=== PATIENT | female | born 1950 | race Caucasian/White ===

== ENCOUNTER 2016-09-24 15:58 | Inpatient (IN) | payer MEDICARE ==
[~2016-09-24] VITALS: Ht 167.6 cm; Wt 73.3 kg
[~2016-09-24 15:58] MED LIST: DEPA500T3 PO; DIVA250ER PO; FURO1TAB93 PO; GLIP5 PO; KCL20 PO; LASI20TA PO; METO25 PO; THIO PO
[2016-09-24 16:55] VITALS: BP 180/81; PULSE 110; RESP 16; TEMP 98.2; O2SAT 96
--- NOTE | 2016-09-24 17:28 | PD ---
HPI Chief Complaint: Psychiatric Symptoms Time Seen by Provider: 16:50 Travel History International Travel<30 days: No Contact w/Intl Traveler<30days: No Traveled to known affect area: No History of Present Illness HPI 66 year-old woman presents emergency department brought in by EMS. The majority of history is obtained from EMS. They stated she was at some sort of family event when she began to laugh hysterically and then stopped responding. Reported family hours on scene said she's done this multiple times in the past related to psychiatric disease. She is a history of bipolar disorder. They report that is becoming more common and problematic. She currently lives by herself, and takes care of a hearing impaired daughter reportedly. History Past Medical History Narrative Medical Bipolar disorder Menopausal: Yes : 2 Para: 2 Social History Alcohol Use: No Tobacco Use: No Allergies-Medications (Allergen,Severity, Reaction): Coded Allergies: Motrin (Verified Allergy, Severe, HIVES, 10/03/15) Penicillin (Verified Allergy, Severe, HIVES, 10/03/15) Sulfa (Verified Allergy, Severe, Hives, 10/03/15) Reported Meds & Prescriptions Reported Meds & Active Scripts Active Lasix (Furosemide) 20 Mg Tab 1 Tab PO DAILY 14 Days Thiothixene 5 Mg Cap 5 Mg PO BID 15 Days Kcl 20 Meq Tab (Potassium Chloride) 20 Meq Tabcr 20 Meq PO DAILY 15 Days Furosemide 40 Mg Tab 40 Mg PO DAILY 15 Days Depakote (Divalproex Sodium) 500 Mg Diana 500 Mg PO DAILY 15 Days Depakote ER 250 mg (Divalproex Sodium) 250 Mg Diana 750 Mg PO HS 15 Days Metoprolol Tartrate 25 mg (Metoprolol Tartrate) 25 Mg Tab 25 Mg PO Q12 Reported Glucotrol (Glipizide) 5 Mg Tab 5 Mg PO BIDAC Review of Systems Except as stated in HPI: all other systems reviewed are Neg Physical Exam Narrative GENERAL: Well-appearing 66 year-old woman, seems to be volitionally unresponsive , resists any exam. SKIN: Warm and dry. HEAD: Atraumatic. Normocephalic. EYES: Pupils equal and round. No scleral icterus. No injection or drainage. CARDIOVASCULAR: Regular rate and rhythm. No murmur appreciated. RESPIRATORY: No accessory muscle use. Clear to auscultation. Breath sounds equal bilaterally. GASTROINTESTINAL: Abdomen soft, non-tender, nondistended. Hepatic and splenic margins not palpable. MUSCULOSKELETAL: No obvious deformities. She holds both feet extended. Right foot seems to have some edema. Unclear if this is chronic or not. There is no obvious areas of tenderness. NEUROLOGICAL: Awake and alert. Will not answer any questions or follow any commands. Resists any maneuvers. Alternately walled opposition swelling arms flexed, sometimes extended, other times she'll purposefully move them and attempted to grab the examiner several times. PSYCHIATRIC: Most catatonic at times, will follow the examiner about the room with her eyes, she tried to grab me a couple times a day and exam after which her blood. Data Data Last Documented VS Vital Signs Date Time Temp Pulse Resp B/P Pulse Ox O2 Delivery O2 Flow Rate FiO2 09/24/16 16:55 98.2 110 16 180/81 96 Orders Complete Blood Count With Diff (09/24/16 17:09) Comprehensive Metabolic Panel (09/24/16 17:09) Psych Screen (09/24/16 17:09) Drug Screen, Random Urine (09/24/16 17:09) Alcohol (Ethanol) (09/24/16 17:09) Foot, Complete ([id number]) (09/24/16 ) Ankle, Complete ([id number]) (09/24/16 ) MDM Medical Decision Making Medical Screen Exam Complete: Yes Emergency Medical Condition: Yes Differential Diagnosis Catatonia, psychosis, agitation, conversion, other Narrative Course Medical decision making 66 year-old woman presents emergency Department with conversion or volitional unresponsiveness or catatonia. Appears to be psychiatric in origin. We'll check basic labs, psych eval, reassess. Oral Zamora MD Sep 24, 2016 17:28
[2016-09-24 17:57] LABS: BASOPHIL % 0.5 % (0.0-2.0); EOSINOPHIL # 0.1 TH/MM3 (0-0.4); EOSINOPHIL % 0.9 % (0.0-4.0); HEMATOCRIT 35.7 % (35.0-46.0); HEMO FLAGS DIFF FINAL; LYMPH % 18.7 % (9.0-44.0); LYMPHOCYTE # 1.1 TH/MM3 (1.0-4.8); MEAN CELL VOLUME 86.9 FL (80.0-100.0); MEAN CORPUSCULAR HEMOGLOBIN 28.3 PG (27.0-34.0); MEAN CORPUSCULAR HGB CONC 32.6 % (32.0-36.0); MONO % 10.7 % (0.0-8.0); NEUT % 69.2 % (16.0-70.0); PLATELET COUNT 156 TH/MM3 (150-450); RED BLOOD COUNT 4.11 MIL/MM3 (4.00-5.30); RED CELL DISTRIBUTION WIDTH 13.4 % (11.6-17.2); WHITE BLOOD COUNT 5.7 TH/MM3 (4.0-11.0)
[2016-09-24 18:05] LABS: AMPHETAMINE, URINE NEG (NEG); BARBITURATES, URINE NEG (NEG); COCAINE, URINE NEG (NEG)
[2016-09-24 18:10] LABS: ANION GAP 13 MEQ/L (5-15); AST (GOT) 21 U/L (15-37); BICARBONATE 21.8 MEQ/L (21.0-32.0); BLOOD UREA NITROGEN 31 MG/DL (7-18); CHLORIDE 108 MEQ/L (98-107); GLOMERULAR FILTRATION RATE 49 ML/MIN (>89); POTASSIUM 3.6 MEQ/L (3.5-5.1); SODIUM (NA) 143 MEQ/L (136-145)
[2016-09-24 18:13] LABS: ALKALINE PHOSPHATASE 68 U/L (45-117); ALT (GPT) 21 U/L (10-53); TOTAL BILIRUBIN ADULT 0.7 MG/DL (0.2-1.0)
[2016-09-24 18:57] VITALS: BP 171/78; PULSE 103; RESP 18; O2SAT 96
--- NOTE | 2016-09-24 19:02 | RADRPT ---
EXAM DATE/TIME: 09/24/2016 17:59 [facility] COMPARISON: No previous studies available for comparison. INDICATIONS : Trauma MEDICAL HISTORY : Unobtainable SURGICAL HISTORY : Unobtainable ENCOUNTER: Initial ACUITY: 1 day PAIN SCORE: Non-responsive. LOCATION: Right Foot FINDINGS: Multiple views of the right foot were obtained and demonstrate diffuse osteopenia and osteoarthritic change. There is no definite acute fracture or malalignment identified. There is chronic deformity of the mid and hindfoot with apparent tarsal fusion. Calcification is noted in the Achilles tendon. The re are degenerative changes in the subtalar joint and tibiotalar joint. CONCLUSION: 1. No acute fracture or malalignment identified. 2. Chronic deformity of the mid and hindfoot with degenerative change. 3. Diffuse osteopenia. Alexander Walter MD on September 24, 2016 at 18:59 Board Certified Radiologist. This report was verified electronically.
--- NOTE | 2016-09-24 19:17 | RADRPT ---
EXAM DATE/TIME: 09/24/2016 17:56 [facility] COMPARISON: FOOT RIGHT COMPLETE ([id number]), September 24, 2016, 17:59. INDICATIONS : Trauma MEDICAL HISTORY : Unobtainable SURGICAL HISTORY : Unobtainable ENCOUNTER: Initial ACUITY: 1 day PAIN SCORE: Non-responsive. LOCATION: Right Ankle FINDINGS: Multiple views of the right ankle were obtained and demonstrate no acute fracture or malalignment. Th ere are chronic changes involving the distal fibula with benign appearing periosteal new bone formati on. There are degenerative changes in the subtalar joint. Degenerative changes are noted in the mid a nd hindfoot with fusion. There is diffuse osteopenia and degenerative change. CONCLUSION: No acute fracture or malalignment. Chronic changes. Alexander Walter MD on September 24, 2016 at 19:15 Board Certified Radiologist. This report was verified electronically.
[2016-09-24] MEDS ORDERED: DEPA500T3 PO (21:16)
[2016-09-24] MEDS ORDERED: GLIP10TA6 PO (21:17)
[2016-09-24] MEDS ORDERED: GLIP5TAB8 PO (21:17)
[2016-09-24] MEDS ORDERED: DIPH25CA PO (21:17)
[2016-09-24 21:28] VITALS: BP 153/68; PULSE 98; RESP 16; O2SAT 96
[2016-09-24] MEDS ORDERED: MAGNESIUM HYDROXIDE SUSP 30 ML CUP PO PRN (23:15)
[2016-09-24] MEDS ORDERED: ALUMINUM/MAGNESIUM/SIMETH 30 ML CUP PO PRN (23:15)
[2016-09-24] MEDS ORDERED: ACETAMINOPHEN 325 MG TAB PO PRN (23:15)
[2016-09-25 00:44] VITALS: BP 161/91; PULSE 109; RESP 18; TEMP 98.4; O2SAT 96
[2016-09-25] MEDS: LORazepam 2 MG/ML VIAL - age > 65 yrs IM PRN (01:25)
[2016-09-25 06:00] VITALS: BP 132/82; PULSE 95; RESP 17; TEMP 98.7; O2SAT 99
[2016-09-25 07:35] LABS: AUTOMATED NEUTROPHIL # 3.4 TH/MM3 (1.8-7.7); BASOPHIL % 0.7 % (0.0-2.0); EOSINOPHIL # 0.1 TH/MM3 (0-0.4); EOSINOPHIL % 1.8 % (0.0-4.0); HEMATOCRIT 37.3 % (35.0-46.0); HEMO FLAGS DIFF FINAL; LYMPH % 22.5 % (9.0-44.0); LYMPHOCYTE # 1.2 TH/MM3 (1.0-4.8); MEAN CELL VOLUME 85.1 FL (80.0-100.0); MEAN CORPUSCULAR HEMOGLOBIN 28.3 PG (27.0-34.0); MEAN CORPUSCULAR HGB CONC 33.3 % (32.0-36.0); MONO % 10.9 % (0.0-8.0); NEUT % 64.1 % (16.0-70.0); PLATELET COUNT 182 TH/MM3 (150-450); RED BLOOD COUNT 4.39 MIL/MM3 (4.00-5.30); RED CELL DISTRIBUTION WIDTH 13.4 % (11.6-17.2); WHITE BLOOD COUNT 5.2 TH/MM3 (4.0-11.0)
[2016-09-25 08:06] LABS: ANION GAP 9 MEQ/L (5-15); AST (GOT) 19 U/L (15-37); BICARBONATE 25.6 MEQ/L (21.0-32.0); BLOOD UREA NITROGEN 24 MG/DL (7-18); CHLORIDE 111 MEQ/L (98-107); GLOMERULAR FILTRATION RATE 57 ML/MIN (>89); MAGNESIUM 2.3 MG/DL (1.5-2.5); POTASSIUM 3.9 MEQ/L (3.5-5.1); SODIUM (NA) 146 MEQ/L (136-145)
[2016-09-25] MEDS: LORazepam 0.5 MG TAB age > 65 yrs PO PRN (08:30)
[2016-09-25 08:33] LABS: ALKALINE PHOSPHATASE 67 U/L (45-117); ALT (GPT) 21 U/L (10-53); CREATINE KINASE 286 U/L (26-192); FREE T4 1.33 NG/DL (0.76-1.46); HDL CHOLESTEROL 53.9 MG/DL (40.0-60.0); LDL CHOLESTEROL 117 MG/DL (0-99); TOTAL BILIRUBIN ADULT 0.9 MG/DL (0.2-1.0)
[2016-09-25 08:46] LABS: CKMB 2.9 NG/ML (0.5-3.6)
--- NOTE | 2016-09-25 08:48 | PD.CONS ---
HPI Service [facility] Hospitalists Consult Requested By Dr. Poe Reason for Consult Medical management Primary Care Physician Abdoulaye Barclay, Diagnoses: History of Present Illness This is a 66-year-old woman with significant past medical history of type 2 diabetes, bipolar disorder, hypertension, CVA, previous admissions to psychiatric unit under [facility]. Patient presented to the emergency room via EMS after family reported the patient had been laughing hysterically and then had stopped responding. Patient was brought to the emergency room to be evaluated, laboratory workup was essentially unremarkable. She was admitted to inpatient psychiatric. Hospitalist service requested for medical management. Patient has history of diabetes and hypertension. Blood pressure was initially elevated in the emergency room which has now stabilized. Patient is ambulating in psychiatric unit, she is cooperative, mood is elevated. She is answering questions but is difficult to focus her on conversation. She has no other complaints other than asking which psychiatrist has been assigned to her. ( [place] [place]) Review of Systems ROS Limitations: Clinical Condition (Emerald [place]) Past Family Social History Past Medical History Bipolar disease, hypertension, diabetes mellitus, noncompliance with medications , anxiety, history of CVA and prior admissions for [facility] inpatient psychiatric unit, LLE DVT Past Surgical History Exploratory laparotomy and surgery to the right foot is child Reported Medications Reported Meds & Active Scripts Active Reported Glipizide 10 Mg Tab 10 Mg PO DAILY Take 30 minutes before a meal Glipizide 5 Mg Tab 5 Mg PO HS Take 30 minutes before a meal Diphenhydramine (Diphenhydramine HCl) 25 Mg Cap 50 Mg PO HS PRN Depakote ER (Divalproex Sodium) 500 Mg Diana 500 Mg PO BID (Emerald [place] ) Allergies: Coded Allergies: Motrin (Verified Allergy, Severe, HIVES, 10/03/15) Penicillin (Verified Allergy, Severe, HIVES, 10/03/15) Sulfa (Verified Allergy, Severe, Hives, 10/03/15) Active Ordered Medications Inpatient Medications Acetaminophen (Tylenol) 650 mg Q4H PRN PO Pain 1-5 or Temp >101F; Start at 23:15 Al Hydrox/Mg Hydrox/Simethicone (Mag-Al Plus Susp Liq) 30 ml Q6H PRN PO DYSPEPSIA; Start 09/24/16 at 23:15 Dextrose (D50w (Vial) Inj) 25 ml UNSCH PRN IV PUSH HYPOGLYCEMIA-SEE COMMENTS; Start 09/25/16 at 09:00 Diphenhydramine HCl (Benadryl) 50 mg HS PRN PO INSOMNIA; Start 09/24/16 at 23: 30 Divalproex Sodium (Depakote Er) 500 mg BID PO ; Start 09/25/16 at 09:00 Glipizide (Glucotrol) 10 mg DAILY PO ; Start 09/25/16 at 09:00 Glucagon (Glucagon Inj) 1 mg UNSCH PRN OTHER HYPOGLYCEMIA-SEE COMMENTS; Start 09/25/16 at 09:00 Insulin Aspart (NovoLOG SUPPLEMENTAL SCALE) 1 ACHS SLIDING SCALE SQ ; Start at 11:00 Lorazepam (Ativan Inj) 0.5 mg Q12H PRN IM MODERATE TO SEVERE ANXIETY Last administered on 09/25/16t 01:25; Start 09/24/16 at 23:15 Lorazepam (Ativan) 0.5 mg Q12H PRN PO MODERATE TO SEVERE ANXIETY; Start at 23:15 Magnesium Hydroxide (Milk Of Vianca Liq) 30 ml DAILY PRN PO CONSTIPATION; Start 09/24/16 at 23:15 Pneumococcal Polyvalent Vaccine (Pneumovax-23 Inj) 25 mcg ONCE ONCE IM ; Start 09/26/16 at 10:00; Stop 09/26/16 at 10:01 Family History Unable to obtain at this time Social History Patient denies tobacco use EtOH use or illicit drug use.Lives with daughter who is [place] and has special needs. Has a son who lives out of state. Uses walker for ambulation ([facility] [place]) Physical Exam Vital Signs Vital Signs Date Time Temp Pulse Resp B/P Pulse Ox O2 Delivery O2 Flow Rate FiO2 09/25/16 06:00 98.7 95 17 132/82 99 09/25/16 00:44 98.4 109 18 161/91 96 09/24/16 21:28 98 16 153/68 96 Room Air 09/24/16 18:57 103 18 171/78 96 Room Air 09/24/16 16:55 98.2 110 16 180/81 96 Physical Exam GENERAL: This is a well-nourished, well-developed patient, in no apparent distress. SKIN: No rashes, ecchymoses or lesions. Cool and dry. HEAD: Atraumatic. Normocephalic. No temporal or scalp tenderness. EYES: Pupils equal round and reactive. Extraocular motions intact. No scleral icterus. No injection or drainage. ENT: Nose without bleeding, purulent drainage or septal hematoma. Throat without erythema, tonsillar hypertrophy or exudate. Uvula midline. Airway patent. NECK: Trachea midline. No JVD or lymphadenopathy. Supple, nontender, no meningeal signs. CARDIOVASCULAR: Regular rate and rhythm without murmurs, gallops, or rubs. RESPIRATORY: Clear to auscultation. Breath sounds equal bilaterally. No wheezes , rales, or rhonchi. GASTROINTESTINAL: Abdomen soft, non-tender, nondistended. No hepato-splenomegaly , or palpable masses. No guarding. MUSCULOSKELETAL: Right ankle deformity, chronic, no other joint deformity. Trace pretibial edema. Pedal pulses 2+ NEUROLOGICAL: Awake, oriented x 3. Mood elevated. No focal deficits. Laboratory Laboratory Tests Test 09/24/16 09/25/16 17:30 07:10 White Blood Count 5.7 5.2 Red Blood Count 4.11 4.39 Hemoglobin 11.6 12.4 Hematocrit 35.7 37.3 Mean Corpuscular Volume 86.9 85.1 Mean Corpuscular Hemoglobin 28.3 28.3 Mean Corpuscular Hemoglobin 32.6 33.3 Concent Red Cell Distribution Width 13.4 13.4 Platelet Count 156 182 Mean Platelet Volume 10.7 9.9 Neutrophils (%) (Auto) 69.2 64.1 Lymphocytes (%) (Auto) 18.7 22.5 Monocytes (%) (Auto) 10.7 10.9 Eosinophils (%) (Auto) 0.9 1.8 Basophils (%) (Auto) 0.5 0.7 Neutrophils # (Auto) 4.0 3.4 Lymphocytes # (Auto) 1.1 1.2 Monocytes # (Auto) 0.6 0.6 Eosinophils # (Auto) 0.1 0.1 Basophils # (Auto) 0.0 0.0 CBC Comment DIFF FINAL DIFF FINAL Differential Comment Sodium Level 143 146 Potassium Level 3.6 3.9 Chloride Level 108 111 Carbon Dioxide Level 21.8 25.6 Anion Gap 13 9 Blood Urea Nitrogen 31 24 Creatinine 1.11 0.97 Estimat Glomerular Filtration 49 57 Rate Random Glucose 121 128 Calcium Level 9.2 9.2 Total Bilirubin 0.7 0.9 Aspartate Amino Transf 21 19 (AST/SGOT) Alanine Aminotransferase 21 21 (ALT/SGPT) Alkaline Phosphatase 68 67 Total Protein 8.4 8.5 Albumin 3.8 3.5 Urine Opiates Screen NEG Urine Barbiturates Screen NEG Urine Amphetamines Screen NEG Urine Benzodiazepines Screen NEG Urine Cocaine Screen NEG Urine Cannabinoids Screen NEG Ethyl Alcohol Level LESS THAN 3 Uric Acid 6.0 Phosphorus Level 2.5 Magnesium Level 2.3 Total Creatine Kinase 286 Creatine Kinase MB 2.9 Creatine Kinase MB % 1.0 Triglycerides Level 84 Cholesterol Level 188 LDL Cholesterol 117 HDL Cholesterol 53.9 Cholesterol/HDL Ratio 3.48 Vitamin B12 Level 695 25-Hydroxy Vitamin D Total 12.6 Free Thyroxine 1.33 Thyroid Stimulating Hormone 0.742 3rd Gen Valproic Acid (Depakene) Level 65 (Emerald [place]) Result Diagram: 09/25/16 0710 09/25/16 0710 Imaging Last Impressions Foot X-Ray 09/24/16 0000 Signed Impressions: Service Date/Time: Saturday, September 24, 2016 17:59 - CONCLUSION: 1. No acute fracture or malalignment identified. 2. Chronic deformity of the mid and hindfoot with degenerative change. 3. Diffuse osteopenia. Alexander Watler MD Ankle X-Ray 09/24/16 0000 Signed Impressions: Service Date/Time: Saturday, September 24, 2016 17:56 - CONCLUSION: No acute fracture or malalignment. Chronic changes. Alexander Walter MD ([facility] [place]) A/P Diagnosis: (1) Bipolar affective disorder, current episode manic with psychotic symptoms (2) Non-insulin dependent type 2 diabetes mellitus (3) HX LEFT LEG DVT (4) Anxiety (5) Hypertension Assessment and Plan Thank you for this consultation. We will assist with medical management. 66-year-old female with history of type 2 diabetes, left leg DVT, anxiety, hypertension, CVA. History of bipolar disorder, admitted with recurrent manic episode. -Continue with psychiatric care -Continue with present medication treatment Type 2 diabetes -1800 ADA diet Continue with oral hypoglycemic Accu-Chek before meals and at bedtime with insulin therapy Hypertension, initially elevated no stable Continue with home medication Clonidine when necessary as needed for systolic rhythm 160 and diastolic rhythm 90 Plan of care has been discussed with the patient, attending and registered nurse. Further management of the patient will be dependent on the hospital course We will sign off for now, please call if needed. This patient was seen by myself and Dr. Purcell, this consultation is written on his behalf. (Emerald [place]) Assessment and Plan pt is seen & examined d/w PT d/w Emer[facility] agree w above (Elicia Purcell MD) Problem Qualifiers (1) Hypertension: Qualified Code: I10 - Essential hypertension Emerald [place] Sep 25, 2016 08:48 Elicia Purcell MD Sep 25, 2016 17:52
[2016-09-25] MEDS: DIVALPROEX SODIUM E.R. 500 MG TAB PO SCH ×3 (09:00→21:00)
[2016-09-25] MEDS ORDERED: GLUCAGON 1 MG/ML VIAL OTHER PRN (09:00)
[2016-09-25] MEDS: glipiZIDE 10 MG TAB PO SCH (09:00)
[2016-09-25] MEDS ORDERED: DEXTROSE 50% IN WATER 50 ML VIAL(D50) IV PUSH PRN (09:00)
[2016-09-25] MEDS ORDERED: cloNIDine HCL 0.1 MG TAB PO PRN (09:15)
[2016-09-25 09:37] LABS: HEMOGLOBIN A1b 1.9 %; HEMOGLOBIN Ao 84.4 %; HEMOGLOBIN LA1C 2.1 %; HEMOGLOBIN P3 3.9 %
[2016-09-25] MEDS: INSULIN ASPART SUPPLEMENTAL SCALE SQ SCH ×3 (11:00→21:00)
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
[2016-09-25 18:15] VITALS: BP 120/82; PULSE 94; RESP 18; TEMP 96.7; O2SAT 99
[2016-09-25] MEDS: glipiZIDE 5 MG TAB PO SCH ×2 (20:33→21:00)
[2016-09-26 05:44] VITALS: BP 146/84; PULSE 95; RESP 16; TEMP 97.1; O2SAT 98
[2016-09-26] MEDS: INSULIN ASPART SUPPLEMENTAL SCALE SQ SCH ×4 (07:00→20:46)
[2016-09-26] MEDS: DIVALPROEX SODIUM E.R. 500 MG TAB PO SCH ×2 (09:00→20:49)
[2016-09-26] MEDS: glipiZIDE 10 MG TAB PO SCH (09:00)
[2016-09-26] MEDS ORDERED: PNEUMOCOCCAL POLYVALENT INJ 25 MCG/0.5 ML SYR IM ONE (10:00)
--- NOTE | 2016-09-26 15:18 | HHI.PYPN ---
Subjective Remarks Patient discussed with treatment team, chart review, patient seen on unit. Patient walking with walker, continues loud intrusive somewhat slurred but rapid pressured speech she is somewhat paranoid and grandiose and labile she appears to be responding to internal stimuli as if her hearing voices in her head. It appears she was on Depakote in the community. Though she is refuse to sign consent for it at this time Depakote level drawn on 09/25 was 65. Will attempt have patient sign for medications continue the Depakote Review of Systems ROS Limitations: Clinical Condition, Altered Mental Status Objective Alert: Yes [place]: Person, Place, Situation Mood: Anxious, Calm Affect: Labile, Manic Memory Intact: Comment (poor) Hallucinations: Auditory (appears to be responding to internal stimuli) Delusions: Yes Delusion Type: Paranoid Suicidal: Ideation (denies) Homicidal: Ideation (denies) Insight/Judgement Poor Vitals/IOs Vital Signs Date Time Temp Pulse Resp B/P Pulse Ox O2 Delivery O2 Flow Rate FiO2 09/26/16 05:44 97.1 95 16 146/84 98 09/24/16 21:28 Room Air Intake and Output 09/25/16 09/25/16 09/26/16 08:00 16:00 00:00 Intake Total 240 ml 75 ml 360 ml Balance 240 ml 75 ml 360 ml Assessment & Plan Problem List: (1) Bipolar affective disorder, current episode manic with psychotic symptoms ICD Code: F31.2 Assessment & Plan Estimated LOS: days patient remains quite manic intense and paranoid. Trying some mixed compliance with her Depakote at this time Justification for Cont. Inpt. At this time patient will decompensate if placed in a lower level of care Discharge Planning To be determined Tim Ca MD Sep 26, 2016 15:18
[2016-09-26 18:46] VITALS: BP 131/70; PULSE 99; RESP 16; TEMP 96.9; O2SAT 94
[2016-09-26] MEDS: LORazepam 0.5 MG TAB age > 65 yrs PO PRN (20:49)
[2016-09-26] MEDS: glipiZIDE 5 MG TAB PO SCH (20:49)
[2016-09-27 06:06] VITALS: BP 137/88; PULSE 100; RESP 18; TEMP 98.1; O2SAT 96
[2016-09-27] MEDS: INSULIN ASPART SUPPLEMENTAL SCALE SQ SCH ×4 (06:22→20:54)
[2016-09-27] MEDS: LORazepam 2 MG/ML VIAL - age > 65 yrs IM PRN (07:38)
[2016-09-27] MEDS: glipiZIDE 10 MG TAB PO SCH (09:00)
[2016-09-27] MEDS: DIVALPROEX SODIUM E.R. 500 MG TAB PO SCH ×2 (09:00→20:53)
--- NOTE | 2016-09-27 09:59 | HHI.PYPN ---
Subjective Remarks Patient seen in day room with nurse Santiago, patient sitting in Marizol chair, patient loud confusing quite manicky initially showing some reluctance to be compliant with medication. Behavior was such that she needed a when necessary of Ativan this morning. Patient also up all last night yelling and screaming at times. We'll add Zyprexa 10 mg at at bedtime. There is also some confusion about [place] act status. At this time I feel patient does meet criteria for involuntary hospitalization under the [place] act, I did not feel she has capacity to be admitted as a voluntary patient thus I'll do first opinion petition supporting [place] act request a second opinion. However I do feel she does have capacity to assistance with her medication management. She has been compliant with medication so far Review of Systems Except as stated in HPI: all other systems reviewed are Neg Objective Alert: Yes [place]: Person, Place, Situation Mood: Agitated, Anxious, Calm Affect: Labile, Manic Memory Intact: Comment (poor) Hallucinations: Auditory (appears to be responding to internal stimuli) Delusions: Yes Delusion Type: Paranoid Suicidal: Ideation (denies) Homicidal: Ideation (denies) Insight/Judgement Very poor Vitals/IOs Vital Signs Date Time Temp Pulse Resp B/P Pulse Ox O2 Delivery O2 Flow Rate FiO2 09/27/16 06:06 98.1 100 18 137/88 96 09/24/16 21:28 Room Air Intake and Output 09/26/16 09/26/16 09/27/16 08:00 16:00 00:00 Intake Total 120 ml Balance 120 ml Assessment & Plan Problem List: (1) Bipolar affective disorder, current episode manic with psychotic symptoms ICD Code: F31.2 Assessment & Plan Estimated LOS: days patient continues loud manic intrusive somewhat grandiose and paranoid. Medication adjustments above. Justification for Cont. Inpt. At this time patient would significantly decompensate if placed in the lower level of care Discharge Planning To be determined Request HC Surrog/Guard Advoc?: No Tim Ca MD Sep 27, 2016 09:59
--- NOTE | 2016-09-27 10:18 | PD.CONS ---
Provisional Diagnosis Admission Date Sep 24, 2016 at 21:30 Corinne I. 1. Bipolar disorder, currently manic severe with psychotic symptoms Corinne II. Deferred Corinne V. GAF is 30 presently History of Present Illness Service Psychiatry Consult Requested By Dr. Ca Reason for Consult Second opinion Primary Care Physician Abdoulaye Barclay, DO HPI From Dr. Ca's H&P: This is a 66-year-old female who has been treated here as an inpatient at [facility] on multiple occasions. She is well known to this physician as well as the staff at [facility] for her bipolar disorder with accompanying mena at this point. Apparently she was at a family function yesterday and was laughing and acting hysterically. She could not be understood by family members and she was not cooperative or able to make logical sense. Law enforcement was called and apparently felt she was unable to care for herself and her hearing-impaired daughter, who lives with her. At this time, the patient is obviously elevated and expansive in her mood yet she is demanding that Dr. Costa Colón performed electroconvulsive therapy on her. She is aware of the machine is not working and that Dr. Colón is not working here yet she demands these things in an unreasonable and irritable fashion. There is some question as to whether Ms. Hurley has been compliant with her medications or not. This physician feels she needs to be placed back on her Depakote and not vein and observed and evaluated for appropriate response. She has no history of alcohol abuse or drug abuse. She remains grandiose in her expectations of treatment. As she cannot produce or discuss a coordinated plan to care for herself, this physician feels that her bipolar mena is of sufficient severity to warn inpatient hospitalization. On my examination today: Patient seen and examined. Chart reviewed. Case discussed with nursing staff as well as with Dr. Ca. On my examination today, the patient presents as fairly disorganized. Her speech is rambling and somewhat garbled and mostly word salad. Affect is fairly dysphoric. She is noncommittal when I ask about SI, HI or AVH. Patient does appear to be responding to internal stimuli. Psychiatric interview is limited because of degree of thought disorganization. I am unable to obtain any past psychiatric, family, chemical dependency or social history from this patient given her current degree of thought disorganization. I did obtain these data when I evaluated her approximately one year ago when she was hospitalized on the inpatient psychiatric unit under my care. Review of Systems ROS Limitations: Psychotic, Poor Historian Other No reported physical complaints at this time Past Family Social History Coded Allergies: Motrin (Verified Allergy, Severe, HIVES, 10/03/15) Penicillin (Verified Allergy, Severe, HIVES, 10/03/15) Sulfa (Verified Allergy, Severe, Hives, 10/03/15) Past Medical History See electronic medical record Reported Medications Glipizide 10 Mg Tab10 Mg PO DAILY #30 TAB Ref 0 Take 30 minutes before a meal 09/24/16 Glipizide 5 Mg Tab5 Mg PO HS #30 TAB Ref 0 Take 30 minutes before a meal 09/24/16 Diphenhydramine 25 Mg Cap50 Mg PO HS PRN (INSOMNIA) Ref 0 09/24/16 Divalproex ER (Depakote ER)500 Mg [id number] Mg PO BID #30 TAB Ref 0 09/24/16 Discontinued Reported Medications Glipizide (Glucotrol)5 Mg Tab5 Mg PO BIDAC 10/30/15 Discontinued Scripts Furosemide (Lasix)20 Mg Tab1 Tab PO DAILY 14 Days Prov:Camille Pereira MD 10/30/15 Thiothixene 5 Mg Cap5 Mg PO BID 15 Days Ref 1 Prov:Osiel Davis MD 10/22/15 Potassium Chloride (Kcl 20 Meq Tab)20 Meq Tabcr20 Meq PO DAILY 15 Days Ref 1 Prov:Osiel Davis MD 10/22/15 Furosemide 40 Mg Tab40 Mg PO DAILY 15 Days Ref 1 Prov:Osiel Davis MD 10/22/15 Divalproex ER 500 mg (Depakote ER 500 mg)500 Mg [id number] Mg PO DAILY 15 Days Ref 1 Prov:Osiel Davis MD 10/22/15 Divalproex ER 250 mg (Depakote ER 250 mg)250 Mg [id number] Mg PO HS 15 Days Ref 1 Prov:Osiel Davis MD 10/22/15 Metoprolol Tartrate 25 mg 25 Mg Tab25 Mg PO Q12 #60 TAB Ref 0 Prov:Tim Ca MD 07/29/14 Current Medications Medications (Trade) Dose Ordered Sig/[place]ent[place] Route Start Time Stop Time Status Last Admin (Ativan) 0.5 mg Q12H PRN PO 09/24/16 23:15 09/25/16 08:30 (Ativan Inj) 0.5 mg Q12H PRN IM 09/24/16 23:15 09/27/16 07:38 (Tylenol) 650 mg Q4H PRN PO 09/24/16 23:15 (Milk Of Magnesia Liq) 30 ml DAILY PRN PO 09/24/16 23:15 (Mag-Al Plus Susp Liq) 30 ml Q6H PRN PO 09/24/16 23:15 (Benadryl) 50 mg HS PRN PO 09/24/16 23:30 (Glucotrol) 5 mg HS PO 09/25/16 21:00 09/26/16 20:49 (Glucotrol) 10 mg DAILY PO 09/25/16 09:00 09/27/16 09:00 (D50w (Vial) Inj) 25 ml UNSCH PRN IV PUSH 09/25/16 09:00 (Glucagon Inj) 1 mg UNSCH PRN OTHER 09/25/16 09:00 (Catapres) 0.1 mg Q6H PRN PO 09/25/16 09:15 (Depakote Er) 500 mg BID PO 09/26/16 21:00 09/27/16 09:00 (ZyPREXA ZYDIS ODT) 10 mg HS PO 09/27/16 21:00 UNV Family History Unable to obtain Social History Unable to obtain Patient's Strengths (min. 2) In a monitored setting. History of response to medications. Physical Exam Physical examination completed by hospitalist road consultant. On my examination today, patient appears to be in no acute physical distress. No abnormal motor movements noted. Labs and vital signs reviewed: Vital Signs Vital Signs Date Time Temp Pulse Resp B/P Pulse Ox O2 Delivery O2 Flow Rate FiO2 09/27/16 06:06 98.1 100 18 137/88 96 09/24/16 21:28 Room Air I/O 09/26/16 09/26/16 09/27/16 08:00 16:00 00:00 Intake Total 120 ml Balance 120 ml Lab Results Item Value Date Time White Blood Count 5.2 TH/MM3 09/25/16 0710 Hemoglobin 12.4 GM/DL 09/25/16 0710 Platelet Count 182 TH/MM3 09/25/16 0710 Sodium Level 146 MEQ/L H 09/25/16 0710 Potassium Level 3.9 MEQ/L 09/25/16 0710 Chloride Level 111 MEQ/L H 09/25/16 0710 Carbon Dioxide Level 25.6 MEQ/L 09/25/16 0710 Blood Urea Nitrogen 24 MG/DL H 09/25/16 0710 Creatinine 0.97 MG/DL 09/25/16 0710 Random Glucose 128 MG/DL H 09/25/16 0710 Estimat Glomerular Filtration Rate 57 ML/MIN L 09/25/16 0710 Aspartate Amino Transf (AST/SGOT) 19 U/L 09/25/16 0710 Alanine Aminotransferase (ALT/SGPT) 21 U/L 09/25/16 0710 Alkaline Phosphatase 67 U/L 09/25/16 0710 Valproic Acid (Depakene) Level 65 MCG/ML 09/25/16 07 Mental Status Examination Patient is in hospital gown. She appears to be fairly well groomed. She is oriented to person and place at least. No abnormal motor movements noted. Speech is rambling and bordering on Word salad much of the time. Affect is presently dysphoric. Thought process disorganized. Associations loose. Possibly some underlying paranoia, unclear given thought disorganization. Patient appears internally stimulated. Does not verbalize any SI or HI but is unreliable to contract for safety at present. Insight and judgment are poor. Assessment & Plan Problem List: (1) Bipolar affective disorder, current episode manic with psychotic symptoms ICD Code: F31.2 Assessment & Plan Given the circumstances of her presentation here in her presentation on my examination today, I concur with Dr. Ca that the patient meets criteria for involuntary psychiatric hospitalization under the [place] act. I have completed the second opinion paperwork. Further care as per Dr. Ca. Signing off. Osiel Davis MD Sep 27, 2016 10:18
--- NOTE | 2016-09-27 17:59 | HHI.PR ---
Subjective Remarks sitting in day room calm has no complaints asking for a "makeover" no pain blood sugars stable BP okay no fever reported Objective Objective Results - Vital Signs Date Time Temp Pulse Resp B/P Pulse Ox O2 Delivery O2 Flow Rate FiO2 09/27/16 06:06 98.1 100 18 137/88 96 09/26/16 18:46 96.9 99 16 131/70 94 I/O 09/26/16 09/26/16 09/26/16 09/27/16 09/27/16 09/27/16 07:00 15:00 23:00 07:00 15:00 23:00 Intake Total 360 ml 120 ml Balance 360 ml 120 ml Intake Oral 360 ml 120 ml # Voids 3 2 2 Result Diagram: 09/25/16 0710 09/25/16 0710 Imaging Last Impressions Foot X-Ray 09/24/16 0000 Signed Impressions: Service Date/Time: Saturday, September 24, 2016 17:59 - CONCLUSION: 1. No acute fracture or malalignment identified. 2. Chronic deformity of the mid and hindfoot with degenerative change. 3. Diffuse osteopenia. Alexander Walter MD Ankle X-Ray 09/24/16 0000 Signed Impressions: Service Date/Time: Saturday, September 24, 2016 17:56 - CONCLUSION: No acute fracture or malalignment. Chronic changes. Alexander Walter MD ROS General: Other (12 point ROS completed, unreliable.) Physical Exam Physical Exam GENERAL: This is a well-nourished, well-developed patient, in no apparent distress. SKIN: No rashes, ecchymoses or lesions. Cool and dry. HEAD: Atraumatic. Normocephalic. No temporal or scalp tenderness. EYES: Pupils equal round and reactive. Extraocular motions intact. No scleral icterus. No injection or drainage. ENT: Nose without bleeding, purulent drainage or septal hematoma. Throat without erythema, tonsillar hypertrophy or exudate. Uvula midline. Airway patent. NECK: Trachea midline. No JVD or lymphadenopathy. Supple, nontender, no meningeal signs. CARDIOVASCULAR: Regular rate and rhythm without murmurs, gallops, or rubs. RESPIRATORY: Clear to auscultation. Breath sounds equal bilaterally. No wheezes , rales, or rhonchi. GASTROINTESTINAL: Abdomen soft, non-tender, nondistended. No hepato-splenomegaly , or palpable masses. No guarding. MUSCULOSKELETAL: Right ankle deformity, chronic, no other joint deformity. Trace pretibial edema. Pedal pulses 2+ NEUROLOGICAL: Awake, oriented x 3. Mood elevated. No focal deficits. Urinary Catheter: No Vascular Central Line Catheter: No A/P Diagnosis: (1) Bipolar affective disorder, current episode manic with psychotic symptoms (2) Non-insulin dependent type 2 diabetes mellitus (3) HX LEFT LEG DVT (4) Anxiety (5) Hypertension Assessment and Plan 66-year-old female with history of type 2 diabetes, left leg DVT, anxiety, hypertension, CVA. History of bipolar disorder, admitted with recurrent manic episode. -Continue with psychiatric care -Continue with present medication treatment Type 2 diabetes-BGM stable -1800 ADA diet Continue with oral hypoglycemic Accu-Chek before meals and at bedtime with insulin therapy -HgbA1c 6.1 Hypertension, initially elevated now stable Continue with home medication Clonidine when necessary as needed for systolic rhythm 160 and diastolic rhythm 90 doing fairly well, no issues with blood glucose, BP stable We will sign off for now, please call if needed. D/W RN D/W Dr. Purcell D/W pt. This patient was seen by myself and Dr. Purcell, this note is written on his behalf. Problem Qualifiers (1) Hypertension: Qualified Code: I10 - Essential hypertension Emerald [place] Sep 27, 2016 17:59
[2016-09-27 20:17] VITALS: BP 137/88; PULSE 100; RESP 18; TEMP 98.1; O2SAT 96
[2016-09-27] MEDS: glipiZIDE 5 MG TAB PO SCH (20:53)
[2016-09-27] MEDS: OLANZapine ODT 10 MG TAB PO SCH (20:53)
[2016-09-27] MEDS: LORazepam 0.5 MG TAB age > 65 yrs PO PRN (20:54)
[2016-09-27] MEDS: diphenhydrAMINE HCL 25 MG CAP PO PRN (20:54)
[2016-09-28 05:52] VITALS: BP 119/69; PULSE 90; RESP 15; TEMP 98.4; O2SAT 98
[2016-09-28] MEDS: INSULIN ASPART SUPPLEMENTAL SCALE SQ SCH ×4 (06:03→21:00)
[2016-09-28] MEDS: DIVALPROEX SODIUM E.R. 500 MG TAB PO SCH ×2 (08:57→21:30)
[2016-09-28] MEDS: glipiZIDE 10 MG TAB PO SCH (08:57)
--- NOTE | 2016-09-28 12:04 | HHI.PYPN ---
Subjective Remarks Patient discussed with treatment team including medications diagnosis placement recommendations and discharge planning, chart reviewed, patient seen on unit. Patient not quite as loud as yesterday though continues markedly demanding especially when speaking with nursing doing medication distribution. Still quite grandiose labile and intrusive, compliant medications. We will check Depakote level over tomorrow Review of Systems Except as stated in HPI: all other systems reviewed are Neg Objective Alert: Yes [place]: Person, Place, Situation Mood: Agitated, Anxious, Calm Affect: Labile, Manic Memory Intact: Comment (poor) Hallucinations: Auditory (appears to be responding to internal stimuli) Delusions: Yes Delusion Type: Paranoid Suicidal: Ideation (denies) Homicidal: Ideation (denies) Insight/Judgement Very poor Vitals/IOs Vital Signs Date Time Temp Pulse Resp B/P Pulse Ox O2 Delivery O2 Flow Rate FiO2 09/28/16 05:52 98.4 90 15 119/69 98 09/24/16 21:28 Room Air Intake and Output 09/27/16 09/27/16 09/28/16 08:00 16:00 00:00 Intake Total 120 ml 270 ml Balance 120 ml 270 ml Assessment & Plan Problem List: (1) Bipolar affective disorder, current episode manic with psychotic symptoms ICD Code: F31.2 Assessment & Plan Estimated LOS: days patient continues manic grandiose psychotic flavor, compliant medications. For now continue medications no change check Depakote level over in a.m. Justification for Cont. Inpt. At this time patient will decompensate if placed in a lower level of care Discharge Planning To be determined Tim Ca MD Sep 28, 2016 12:04
[2016-09-28 19:48] VITALS: BP_SYST 124; BP_SYST 137; BP_DIAS 65; BP_DIAS 79; PULSE 95; PULSE 98; RESP 16; RESP 18; TEMP 98.1; TEMP 99.4; O2SAT 100; O2SAT 98
[2016-09-28] MEDS: OLANZapine ODT 10 MG TAB PO SCH (21:00)
[2016-09-28] MEDS: glipiZIDE 5 MG TAB PO SCH (21:30)
[2016-09-29 05:22] VITALS: BP 133/76; PULSE 118; RESP 18; TEMP 97.4; O2SAT 100
[2016-09-29] MEDS: INSULIN ASPART SUPPLEMENTAL SCALE SQ SCH (06:11)
[2016-09-29] MEDS: glipiZIDE 10 MG TAB PO SCH (08:34)
[2016-09-29] MEDS: DIVALPROEX SODIUM E.R. 500 MG TAB PO SCH ×2 (08:34→21:23)
--- NOTE | 2016-09-29 10:05 | HHI.PYPN ---
Subjective Remarks Patient seen [place], retained by Katerin Dubose to be guardian advocate. Patient was loud disorganized confused with the hand stitcher. Patient continues mixed compliance with medication especially related to the Zyprexa. Upon review of prior hospitalizations patient had been on Ativan 5 mg twice a day. Depakote level 91 this a.m. will add never been 5 mg at 8 AM and 4 PM to regimen. Continue other medications. Review of Systems Except as stated in HPI: all other systems reviewed are Neg Objective Alert: Yes [place]: Person, Place, Situation Mood: Agitated, Anxious, Calm Affect: Labile, Manic Memory Intact: Comment (poor) Hallucinations: Auditory (appears to be responding to internal stimuli) Delusions: Yes Delusion Type: Paranoid Suicidal: Ideation (denies) Homicidal: Ideation (denies) Insight/Judgement Poor Labs Test 09/29/16 07:00 Valproic Acid (Depakene) Level 91 MCG/ML Vitals/IOs Vital Signs Date Time Temp Pulse Resp B/P Pulse Ox O2 Delivery O2 Flow Rate FiO2 09/29/16 05:22 97.4 118 18 133/76 100 Intake and Output 09/28/16 09/28/16 09/29/16 08:00 16:00 00:00 Intake Total 360 ml Balance 360 ml Assessment & Plan Problem List: (1) Bipolar affective disorder, current episode manic with psychotic symptoms ICD Code: F31.2 Assessment & Plan Estimated LOS: days patient remains quite manic and psychotic, grandiose. Showing mixed compliance with medication at this time. We'll add neb and 5 mg twice a day to regimen. Depakote level came back at 91 Justification for Cont. Inpt. At this time patient will decompensate placed in the lower level of care Discharge Planning To be determined Tim Ca MD Sep 29, 2016 10:05
[2016-09-29] MEDS: LORazepam 0.5 MG TAB age > 65 yrs PO PRN (10:57)
--- NOTE | 2016-09-29 16:14 | HHI.PR ---
Subjective Remarks pt is feeling ok offering no complaint sitting in day room calm no pain blood sugars stable BP okay no fever reported Review of systems a 10 point system otherwise unremarkable Objective Objective Results - Vital Signs Date Time Temp Pulse Resp B/P Pulse Ox O2 Delivery O2 Flow Rate FiO2 09/29/16 05:22 97.4 118 18 133/76 100 09/28/16 19:48 99.4 98 16 137/79 100 I/O 09/28/16 09/28/16 09/28/16 09/29/16 09/29/16 09/29/16 07:00 15:00 23:00 07:00 15:00 23:00 Intake Total 360 ml 1440 ml Balance 360 ml 1440 ml Intake Oral 360 ml 1440 ml # Voids 2 2 1 1 Result Diagram: 09/25/16 0710 09/25/16 0710 Imaging Last Impressions Foot X-Ray 09/24/16 0000 Signed Impressions: Service Date/Time: Saturday, September 24, 2016 17:59 - CONCLUSION: 1. No acute fracture or malalignment identified. 2. Chronic deformity of the mid and hindfoot with degenerative change. 3. Diffuse osteopenia. Alexander Walter MD Ankle X-Ray 09/24/16 0000 Signed Impressions: Service Date/Time: Saturday, September 24, 2016 17:56 - CONCLUSION: No acute fracture or malalignment. Chronic changes. Alexander Walter MD Other Results Laboratory Tests Test 09/29/16 07:00 Valproic Acid (Depakene) Level 91 Physical Exam Physical Exam GENERAL: This is a well-nourished, well-developed patient, in no apparent distress. SKIN: No rashes, ecchymoses or lesions. Cool and dry. HEAD: Atraumatic. Normocephalic. No temporal or scalp tenderness. EYES: Pupils equal round and reactive. Extraocular motions intact. No scleral icterus. No injection or drainage. ENT: Nose without bleeding, purulent drainage or septal hematoma. Throat without erythema, tonsillar hypertrophy or exudate. Uvula midline. Airway patent. NECK: Trachea midline. No JVD or lymphadenopathy. Supple, nontender, no meningeal signs. CARDIOVASCULAR: Regular rate and rhythm without murmurs, gallops, or rubs. RESPIRATORY: Clear to auscultation. Breath sounds equal bilaterally. No wheezes , rales, or rhonchi. GASTROINTESTINAL: Abdomen soft, non-tender, nondistended. No hepato-splenomegaly , or palpable masses. No guarding. MUSCULOSKELETAL: Right ankle deformity, chronic, no other joint deformity. Trace pretibial edema. Pedal pulses 2+ NEUROLOGICAL: Awake, oriented x 3. Mood elevated. No focal deficits. Urinary Catheter: No Vascular Central Line Catheter: No A/P Assessment and Plan (1) Bipolar affective disorder, current episode manic with psychotic symptoms (2) Non-insulin dependent type 2 diabetes mellitus (3) HX LEFT LEG DVT (4) Anxiety (5) Hypertension Plan 66-year-old female with history of type 2 diabetes, left leg DVT, anxiety, hypertension, CVA. History of bipolar disorder, admitted with recurrent manic episode. -Continue with psychiatric care -Continue with present medication treatment Type 2 diabetes-BGM stable -1800 ADA diet Continue with oral hypoglycemic. monitor sugar Accu-Chek before meals and at bedtime with insulin therapy -HgbA1c 6.1 Hypertension, initially elevated now stable Continue with home medication Clonidine when necessary as needed for systolic rhythm 160 and diastolic rhythm 90 doing fairly well, no issues with blood glucose, BP stable We will sign off for now, please call if needed. D/W RN in detail about sugar manament explained to pt. will follow Ilene Marcial MD Sep 29, 2016 16:14
[2016-09-29] MEDS: THIOTHIXENE 5 MG CAP PO SCH (16:20)
[2016-09-29 18:00] VITALS: BP 138/67; PULSE 92; RESP 16; TEMP 98; O2SAT 100
[2016-09-29] MEDS: glipiZIDE 5 MG TAB PO SCH (21:23)
[2016-09-29] MEDS: OLANZapine ODT 10 MG TAB PO SCH (21:23)
[2016-09-30 05:59] VITALS: BP 123/76; PULSE 110; RESP 18; TEMP 97.9
[2016-09-30] MEDS: THIOTHIXENE 5 MG CAP PO SCH ×2 (09:02→17:15)
[2016-09-30] MEDS: DIVALPROEX SODIUM E.R. 500 MG TAB PO SCH ×2 (09:02→21:43)
[2016-09-30] MEDS: glipiZIDE 10 MG TAB PO SCH (09:03)
--- NOTE | 2016-09-30 14:48 | HHI.PYPN ---
Subjective Remarks Patient seen in [place] with floor staff, chart review. Patient compliant medications. Patient remains somewhat disorganized but showing some slight improvement in eye contact [place] is paranoid or intrusive labile. For now continue treatment Review of Systems Except as stated in HPI: all other systems reviewed are Neg Objective Alert: Yes [place]: Person, Place, Situation Mood: Agitated, Anxious, Calm Affect: Labile, Manic Memory Intact: Comment (poor) Hallucinations: Auditory (appears to be responding to internal stimuli) Delusions: Yes Delusion Type: Paranoid Suicidal: Ideation (denies) Homicidal: Ideation (denies) Insight/Judgement Very poor Vitals/IOs Vital Signs Date Time Temp Pulse Resp B/P Pulse Ox O2 Delivery O2 Flow Rate FiO2 09/30/16 05:59 97.9 110 18 123/76 09/29/16 18:00 100 Intake and Output 09/29/16 09/29/16 09/30/16 08:00 16:00 00:00 Intake Total 240 ml 1200 ml 720 ml Balance 240 ml 1200 ml 720 ml Assessment & Plan Problem List: (1) Bipolar affective disorder, current episode manic with psychotic symptoms ICD Code: F31.2 Assessment & Plan Estimated LOS: days patient continues manic intrusive and somewhat paranoid though softer at the present time. Compliant medications Justification for Cont. Inpt. At this time patient will decompensate if placed in a lower level of care Discharge Planning To be determined Tim Ca MD Sep 30, 2016 14:48
--- NOTE | 2016-09-30 17:03 | HHI.PR ---
Subjective Remarks as per rn pt has some difficult in walking sec to her big nails pt is feeling ok offering no complaint sitting in day room calm no pain blood sugars stable BP okay no fever reported Review of systems a 10 point system otherwise unremarkable Objective Objective Results - Vital Signs Date Time Temp Pulse Resp B/P Pulse Ox O2 Delivery O2 Flow Rate FiO2 09/30/16 05:59 97.9 110 18 123/76 09/29/16 18:00 98.0 92 16 138/67 100 I/O 09/29/16 09/29/16 09/29/16 09/30/16 09/30/16 09/30/16 07:00 15:00 23:00 07:00 15:00 23:00 Intake Total 1440 ml 720 ml 360 ml Balance 1440 ml 720 ml 360 ml Intake Oral 1440 ml 720 ml 360 ml # Voids 1 1 2 1 Imaging Last Impressions Foot X-Ray 09/24/16 0000 Signed Impressions: Service Date/Time: Saturday, September 24, 2016 17:59 - CONCLUSION: 1. No acute fracture or malalignment identified. 2. Chronic deformity of the mid and hindfoot with degenerative change. 3. Diffuse osteopenia. Alexander Walter MD Ankle X-Ray 09/24/16 0000 Signed Impressions: Service Date/Time: Saturday, September 24, 2016 17:56 - CONCLUSION: No acute fracture or malalignment. Chronic changes. Alexander Walter MD Physical Exam Physical Exam GENERAL: This is a well-nourished, well-developed patient, in no apparent distress. SKIN: No rashes, ecchymoses or lesions. Cool and dry. HEAD: Atraumatic. Normocephalic. No temporal or scalp tenderness. EYES: Pupils equal round and reactive. Extraocular motions intact. No scleral icterus. No injection or drainage. ENT: Nose without bleeding, purulent drainage or septal hematoma. Throat without erythema, tonsillar hypertrophy or exudate. Uvula midline. Airway patent. NECK: Trachea midline. No JVD or lymphadenopathy. Supple, nontender, no meningeal signs. CARDIOVASCULAR: Regular rate and rhythm without murmurs, gallops, or rubs. RESPIRATORY: Clear to auscultation. Breath sounds equal bilaterally. No wheezes , rales, or rhonchi. GASTROINTESTINAL: Abdomen soft, non-tender, nondistended. No hepato-splenomegaly , or palpable masses. No guarding. MUSCULOSKELETAL: Right ankle deformity, chronic, no other joint deformity. Trace pretibial edema. Pedal pulses 2+.+ large thic nails curving some NEUROLOGICAL: Awake, oriented x 3. Mood elevated. No focal deficits. Urinary Catheter: No Vascular Central Line Catheter: No A/P Assessment and Plan (1) Bipolar affective disorder, current episode manic with psychotic symptoms (2) Non-insulin dependent type 2 diabetes mellitus (3) HX LEFT LEG DVT (4) Anxiety (5) Hypertension Plan 66-year-old female with history of type 2 diabetes, left leg DVT, anxiety, hypertension, CVA. History of bipolar disorder, admitted with recurrent manic episode. -Continue with psychiatric care -Continue with present medication treatment Type 2 diabetes-BGM stable -1800 ADA diet Continue with oral hypoglycemic. monitor sugar Accu-Chek before meals and at bedtime with insulin therapy -HgbA1c 6.1 Hypertension, initially elevated now stable Continue with home medication Clonidine when necessary as needed for systolic rhythm 160 and diastolic rhythm 90 plan for podiatry consult if they can trim nail and look at her toes doing fairly well, no issues with blood glucose, BP stable We will sign off for now, please call if needed. D/W RN explained to pt. will follow Ilene Marcial MD Sep 30, 2016 17:03
[2016-09-30 18:00] VITALS: BP 145/68; PULSE 100; RESP 17; TEMP 99.3; O2SAT 98
[2016-09-30] MEDS: glipiZIDE 5 MG TAB PO SCH (21:43)
[2016-09-30] MEDS: OLANZapine ODT 10 MG TAB PO SCH (21:43)
[2016-10-01 05:19] VITALS: BP 122/73; PULSE 92; RESP 16; TEMP 97.3; O2SAT 100
[2016-10-01] MEDS: DIVALPROEX SODIUM E.R. 500 MG TAB PO SCH ×2 (08:49→21:33)
[2016-10-01] MEDS: THIOTHIXENE 5 MG CAP PO SCH ×2 (08:49→17:32)
[2016-10-01] MEDS: glipiZIDE 10 MG TAB PO SCH (08:49)
--- NOTE | 2016-10-01 14:09 | HHI.PR ---
Subjective Remarks as per rn pt has some difficult in walking sec to her big nails Otherwise feeling okay offering no complaint sitting in day room calm no pain blood sugars stable BP okay no fever reported Review of systems a 10 point system otherwise unremarkable Objective Objective Results - Vital Signs Date Time Temp Pulse Resp B/P Pulse Ox O2 Delivery O2 Flow Rate FiO2 10/01/16 05:19 97.3 92 16 122/73 100 09/30/16 18:00 99.3 100 17 145/68 98 I/O 09/30/16 09/30/16 09/30/16 10/01/16 10/01/16 10/01/16 07:00 15:00 23:00 07:00 15:00 23:00 Intake Total 360 ml 360 ml 0 ml Balance 360 ml 360 ml 0 ml Intake Oral 360 ml 360 ml 0 ml # Voids 1 2 Imaging Last Impressions Foot X-Ray 09/24/16 0000 Signed Impressions: Service Date/Time: Saturday, September 24, 2016 17:59 - CONCLUSION: 1. No acute fracture or malalignment identified. 2. Chronic deformity of the mid and hindfoot with degenerative change. 3. Diffuse osteopenia. Alexander Walter MD Ankle X-Ray 09/24/16 0000 Signed Impressions: Service Date/Time: Saturday, September 24, 2016 17:56 - CONCLUSION: No acute fracture or malalignment. Chronic changes. Alexander Walter MD Physical Exam Physical Exam GENERAL: This is a well-nourished, well-developed patient, in no apparent distress. SKIN: No rashes, ecchymoses or lesions. Cool and dry. HEAD: Atraumatic. Normocephalic. No temporal or scalp tenderness. EYES: Pupils equal round and reactive. Extraocular motions intact. No scleral icterus. No injection or drainage. ENT: Nose without bleeding, purulent drainage or septal hematoma. Throat without erythema, tonsillar hypertrophy or exudate. Uvula midline. Airway patent. NECK: Trachea midline. No JVD or lymphadenopathy. Supple, nontender, no meningeal signs. CARDIOVASCULAR: Regular rate and rhythm without murmurs, gallops, or rubs. RESPIRATORY: Clear to auscultation. Breath sounds equal bilaterally. No wheezes , rales, or rhonchi. GASTROINTESTINAL: Abdomen soft, non-tender, nondistended. No hepato-splenomegaly , or palpable masses. No guarding. MUSCULOSKELETAL: Right ankle deformity, chronic, no other joint deformity. Trace pretibial edema. Pedal pulses 2+.+ large thic nails curving some. Seems like patient has third toe ingrowing toenail NEUROLOGICAL: Awake, oriented x 3. Mood elevated. No focal deficits. Urinary Catheter: No Vascular Central Line Catheter: No A/P Assessment and Plan (1) Bipolar affective disorder, current episode manic with psychotic symptoms (2) Non-insulin dependent type 2 diabetes mellitus (3) HX LEFT LEG DVT (4) Anxiety (5) Hypertension Plan 66-year-old female with history of type 2 diabetes, left leg DVT, anxiety, hypertension, CVA. History of bipolar disorder, admitted with recurrent manic episode. -Continue with psychiatric care -Continue with present medication treatment Type 2 diabetes-BGM stable -1800 ADA diet Continue with oral hypoglycemic. monitor sugar Accu-Chek before meals and at bedtime with insulin therapy -HgbA1c 6.1 Hypertension, initially elevated now stable Continue with home medication Clonidine when necessary as needed for systolic rhythm 160 and diastolic rhythm 90 plan for podiatry consult as patient has difficulty in walking because of abnormal large thick nails and has toe ingrowing toenail doing fairly well, no issues with blood glucose, BP stable We will sign off for now, please call if needed. D/W RN explained to pt. will follow Ilene Marcial MD Oct 01, 2016 14:08
[2016-10-01 18:41] VITALS: BP 129/71; PULSE 104; RESP 16; TEMP 97.5; O2SAT 99
[2016-10-01] MEDS: OLANZapine ODT 10 MG TAB PO SCH (21:33)
[2016-10-01] MEDS: glipiZIDE 5 MG TAB PO SCH (21:33)
[2016-10-02 06:28] VITALS: BP 127/55; PULSE 101; RESP 18; TEMP 98.9; O2SAT 98
[2016-10-02] MEDS: DIVALPROEX SODIUM E.R. 500 MG TAB PO SCH ×2 (08:35→21:13)
[2016-10-02] MEDS: glipiZIDE 10 MG TAB PO SCH (08:35)
[2016-10-02] MEDS: THIOTHIXENE 5 MG CAP PO SCH ×2 (08:37→16:00)
[2016-10-02] MEDS: LORazepam 2 MG/ML VIAL - age > 65 yrs IM PRN (10:21)
--- NOTE | 2016-10-02 11:19 | HHI.PYPN ---
Subjective Remarks Patient was seen and case discussed with nursing. Patient was labile this morning. During the interview she is perseverative on getting ECT daughter's upcoming cochlear implant. She is tangential and disorganized. Denies auditory hallucinations. Denies suicidal ideation intent or plan. Compliant with medications Objective Alert: Yes [place]: Person, Place Mood: Anxious, Calm Affect: Manic Memory Intact: Comment (poor) Hallucinations: Auditory (appears to be responding to internal stimuli) Delusions: Yes Delusion Type: Paranoid (bizarre) Suicidal: Ideation (denies) Homicidal: Ideation (denies) Insight/Judgement Poor Vitals/IOs Vital Signs Date Time Temp Pulse Resp B/P Pulse Ox O2 Delivery O2 Flow Rate FiO2 10/02/16 06:28 98.9 101 18 127/55 98 Intake and Output 10/01/16 10/01/16 10/02/16 08:00 16:00 00:00 Intake Total 0 ml 720 ml 1080 ml Balance 0 ml 720 ml 1080 ml Assessment & Plan Problem List: (1) Bipolar affective disorder, current episode manic with psychotic symptoms ICD Code: F31.2 Assessment & Plan Continue current treatment plan Justification for Cont. Inpt. Patient will decompensate in a less restrictive setting Cody Chaidez DO Oct 02, 2016 11:18
--- NOTE | 2016-10-02 12:56 | PD.POD.CON ---
Patient Intake Chief Complaint Diabetic patient with onychomycosis Consult Requested by Dr. Lazo Reason for Consult Diabetic foot care Primary Care Physician Abdoulaye Barclay, DO History of Present Illness Patient is a 66-year-old diabetic female with bipolar disease. She has difficulties with ambulation secondary to her extremely elongated toenails. Coded Allergies: Motrin (Verified Allergy, Severe, HIVES, 10/03/15) Penicillin (Verified Allergy, Severe, HIVES, 10/03/15) Sulfa (Verified Allergy, Severe, Hives, 10/03/15) Preferred Language to Discuss: Bengali Barriers to Learning: Emotional Teaching Method: Discussion Vital Signs Date Time Temp Pulse Resp B/P Pulse Ox O2 Delivery O2 Flow Rate FiO2 10/02/16 06:28 98.9 101 18 127/55 98 10/01/16 18:41 97.5 104 16 129/71 99 Pain scale used: 0-10 numeric scale Pain score: 2 Medications Current Medications Lorazepam (Ativan) 0.5 mg Q12H PRN PO MODERATE TO SEVERE ANXIETY Last administered on 09/29/16 10:57; Start 09/24/16 at 23:15 Lorazepam (Ativan Inj) 0.5 mg Q12H PRN IM MODERATE TO SEVERE ANXIETY Last administered on 10/02/16 10:21; Start 09/24/16 at 23:15 Acetaminophen (Tylenol) 650 mg Q4H PRN PO Pain 1-5 or Temp >101F; Start at 23:15 Magnesium Hydroxide (Milk Of Magnesia Liq) 30 ml DAILY PRN PO CONSTIPATION; Start 09/24/16 at 23:15 Al Hydrox/Mg Hydrox/Simethicone (Mag-Al Plus Susp Liq) 30 ml Q6H PRN PO DYSPEPSIA; Start 09/24/16 at 23:15 Divalproex Sodium (Depakote Er) 500 mg BID PO Last administered on 09/25/16 09 :00; Start 09/25/16 at 09:00; Stop 09/26/16 at 15:32; Status DC Diphenhydramine HCl (Benadryl) 50 mg HS PRN PO INSOMNIA Last administered on 20:54; Start 09/24/16 at 23:30 Glipizide (Glucotrol) 5 mg HS PO Last administered on 10/01/16 21:33; Start at 21:00 Glipizide (Glucotrol) 10 mg DAILY PO Last administered on 10/02/16 08:35; Start 09/25/16 at 09:00 Pneumococcal Polyvalent Vaccine (Pneumovax-23 Inj) 25 mcg ONCE ONCE IM ; Start 09/26/16 at 10:00; Stop 09/26/16 at 10:01; Status DC Dextrose (D50w (Vial) Inj) 25 ml UNSCH PRN IV PUSH HYPOGLYCEMIA-SEE COMMENTS; Start 09/25/16 at 09:00 Glucagon (Glucagon Inj) 1 mg UNSCH PRN OTHER HYPOGLYCEMIA-SEE COMMENTS; Start 09/25/16 at 09:00 Insulin Aspart (NovoLOG SUPPLEMENTAL SCALE) 1 ACHS SLIDING SCALE SQ ; Start at 11:00; Stop 09/29/16 at 10:53; Status DC Clonidine (Catapres) 0.1 mg Q6H PRN PO SBP>160, DBP>90; Start 09/25/16 at 09:15 Divalproex Sodium (Depakote Er) 500 mg BID PO Last administered on 10/02/16 08 :35; Start 09/26/16 at 21:00 Olanzapine (ZyPREXA ZYDIS ODT) 10 mg HS PO Last administered on 10/01/16 21:33 ; Start 09/27/16 at 21:00 Thiothixene (Navane) 5 mg DAILY@08,16 PO Last administered on 10/02/16 08:37; Start 09/29/16 at 16:00 Past, Family & Social History Past Medical History Endocrine: REPORTS HX OF: Diabetes mellitus Cardiovascular: REPORTS HX OF: Deep venous thrombosis, Hypertension Psychiatric: REPORTS HX OF: Bipolar disorder Review of Systems Constitutional: COMPLAINS OF: Good general health Exam-Podiatry Constitutional General appearance: comfortable Nutritional status: overweight Orientation: alert and oriented x3 Dermatological Exam Skin Temp - Right: Within Normal Limits Skin Texture - Right: Within Normal Limits Skin Elasticity - Right: Within Normal Limits Skin Tugor - Right: Within Normal Limits Hair Growth - Right: Within Normal Limits Pigmentation - Right: Within Normal Limits Skin Temp - Left: Within Normal Limits Skin Texture - Left: Within Normal Limits Skin Elasticity - Left: Within Normal Limits Skin Tugor - Left: Within Normal Limits Hair Growth - Left: Within Normal Limits Pigmentation - Left: Within Normal Limits Discoloration: Toe #5 (R), Toe #4 (R), Toe #3 (R), Toe #2 (R), Toe #1 (R), Toe #1 (L), Toe #2 (L), Toe #3 (L), Toe #4 (L) Thickening: Toe #5 (R), Toe #4 (R), Toe #3 (R), Toe #2 (R), Toe #1 (R), Toe #1 (L), Toe #2 (L), Toe #3 (L), Toe #4 (L), Toe #5 (L) Yellow, Brittle, &/or [place]: Toe #5 (R), Toe #4 (R), Toe #3 (R), Toe #2 (R) , Toe #1 (R), Toe #1 (L), Toe #2 (L), Toe #3 (L), Toe #4 (L), Toe #5 (L) Vascular/Lymphatic Exam R Dorsails Pedis: Palpable (diminished) L Dorsails Pedis: Palpable (diminished) R Posterior Tibial: Palpable (diminished) L Posterior Tibial: Palpable (diminished) Neurologic Exam Details Deferred exam Muscle Strength Dorsiflexion (Right): Normal Plantarflexion (Right): Normal Inversion (Right): Normal Eversion (Right): Normal Digital (Right): Normal Dorsiflexion (Left): Normal Plantarflexion (Left): Normal Inversion (Left): Normal Eversion (Left): Normal Digital (Left): Normal Foot Range of Motion Dorsiflexion (Right): Normal Plantarflexion (Right): Normal Inversion (Right): Normal Eversion (Right): Normal Digital (Right): Normal Dorsiflexion (Left): Normal Plantarflexion (Left): Normal Inversion (Left): Normal Eversion (Left): Normal Digital (Left): Normal Extremities Edema: Left lower extremity: 3+, nonpitting, foot, ankle Right lower extremity: 3+, nonpitting, foot, ankle Lab and Radiology Results Radiology Last Impressions Foot X-Ray 09/24/16 0000 Signed Impressions: Service Date/Time: Saturday, September 24, 2016 17:59 - CONCLUSION: 1. No acute fracture or malalignment identified. 2. Chronic deformity of the mid and hindfoot with degenerative change. 3. Diffuse osteopenia. Alexander Walter MD Ankle X-Ray 09/24/16 0000 Signed Impressions: Service Date/Time: Saturday, September 24, 2016 17:56 - CONCLUSION: No acute fracture or malalignment. Chronic changes. Alexander Walter MD Assessment/Plan Problem List: (1) Non-insulin dependent type 2 diabetes mellitus Status: Chronic (2) Bipolar affective disorder, current episode manic with psychotic symptoms Status: Chronic (3) HX LEFT LEG DVT Status: Resolved (4) Onychogryphosis Status: Acute (5) Onychomycosis Status: Acute (6) Lymphedema Status: Chronic Additional Plans & Procedures PLAN:. Nails 1 through 5 bilaterally were debrided. Patient can follow-up on an outpatient basis with the underwear hemmer of her choice in approximately 3 months. Thank you for this consultation. Signing off for now. Please reconsult if needed. Adonis Murray DPM Oct 02, 2016 12:56
[2016-10-02 18:57] VITALS: BP 125/58; PULSE 105; RESP 16; TEMP 97.9; O2SAT 96
[2016-10-02] MEDS: OLANZapine ODT 10 MG TAB PO SCH (21:13)
[2016-10-02] MEDS: glipiZIDE 5 MG TAB PO SCH (21:13)
[2016-10-03] MEDS: THIOTHIXENE 5 MG CAP PO SCH ×2 (08:00→17:22)
[2016-10-03] MEDS: glipiZIDE 10 MG TAB PO SCH (09:00)
[2016-10-03] MEDS: DIVALPROEX SODIUM E.R. 500 MG TAB PO SCH ×2 (10:15→20:58)
--- NOTE | 2016-10-03 16:00 | HHI.PYPN ---
Subjective Remarks Patient discussed with treatment team, chart reviewed, it appears patient did not sleep at all last night. Patient seen on unit. Patient remains intense labile and intrusive though slightly softer with her affect. Will increase at bedtime Zyprexa to 20 mg Review of Systems Except as stated in HPI: all other systems reviewed are Neg Objective Alert: Yes [place]: Person, Place Mood: Anxious, Calm Affect: Manic Memory Intact: Comment (poor) Hallucinations: Auditory (appears to be responding to internal stimuli) Delusions: Yes Delusion Type: Paranoid (bizarre) Suicidal: Ideation (denies) Homicidal: Ideation (denies) Insight/Judgement Very poor Vitals/IOs Vital Signs Date Time Temp Pulse Resp B/P Pulse Ox O2 Delivery O2 Flow Rate FiO2 10/02/16 18:57 97.9 105 16 125/58 96 Intake and Output 10/02/16 10/02/16 10/03/16 08:00 16:00 00:00 Intake Total 360 ml 840 ml Balance 360 ml 840 ml Assessment & Plan Problem List: (1) Bipolar affective disorder, current episode manic with psychotic symptoms ICD Code: F31.2 Assessment & Plan Estimated LOS: days patient remains somewhat manic and psychotic. Intrusive. Did not sleep last night. See medication changes above Justification for Cont. Inpt. At this time patient will decompensate the placed in a lower level of care Discharge Planning To be determined Tim Ca MD Oct 03, 2016 16:00
[2016-10-03 18:00] VITALS: BP 113/70; PULSE 105; RESP 18; TEMP 98.1; O2SAT 98
[2016-10-03] MEDS: OLANZapine ODT 20 MG TAB PO SCH (20:58)
[2016-10-03] MEDS: glipiZIDE 5 MG TAB PO SCH (20:58)
[2016-10-04 06:00] VITALS: BP 127/64; PULSE 109; RESP 18; TEMP 97.6; O2SAT 98
[2016-10-04] MEDS: glipiZIDE 10 MG TAB PO SCH (08:41)
[2016-10-04] MEDS: DIVALPROEX SODIUM E.R. 500 MG TAB PO SCH ×2 (08:41→20:58)
[2016-10-04] MEDS: THIOTHIXENE 5 MG CAP PO SCH ×2 (08:41→16:47)
--- NOTE | 2016-10-04 15:11 | HHI.PYPN ---
Subjective Remarks Patient seen in day room with nurse Javier, chart reviewed. Patient states she slept better last night she has been compliant with the medications she is not quite as intense or intrusive today as yesterday. For now continue treatment Review of Systems Except as stated in HPI: all other systems reviewed are Neg Objective Alert: Yes [place]: Person, Place Mood: Anxious (slightly decreased), Calm Affect: Manic (slightly decreased) Memory Intact: Comment (poor) Hallucinations: Auditory (appears to be responding to internal stimuli) Delusions: Yes Delusion Type: Paranoid (bizarre) Suicidal: Ideation (denies) Homicidal: Ideation (denies) Insight/Judgement Poor Vitals/IOs Vital Signs Date Time Temp Pulse Resp B/P Pulse Ox O2 Delivery O2 Flow Rate FiO2 10/04/16 06:00 97.6 109 18 127/64 98 Intake and Output 10/03/16 10/03/16 10/04/16 08:00 16:00 00:00 Intake Total 720 ml 720 ml 1200 ml Balance 720 ml 720 ml 1200 ml Assessment & Plan Problem List: (1) Bipolar affective disorder, current episode manic with psychotic symptoms ICD Code: F31.2 Assessment & Plan Estimated LOS: days patient continues manic with psychotic features, though slightly softer. Compliant medications. Did sleep better last night Justification for Cont. Inpt. At this time patient will decompensate if placed in a lower level of care Discharge Planning To be determined Tim Ca MD Oct 04, 2016 15:11
[2016-10-04 18:00] VITALS: BP 118/63; PULSE 101; RESP 16; TEMP 99.1; O2SAT 98
[2016-10-04] MEDS: glipiZIDE 5 MG TAB PO SCH (20:58)
[2016-10-04] MEDS: OLANZapine ODT 20 MG TAB PO SCH (20:58)
--- NOTE | 2016-10-04 22:20 | HHI.PR ---
Subjective Remarks PT is walking without any pain Otherwise feeling okay offering no complaint sitting in day room calm no pain blood sugars stable BP okay no fever reported Review of systems a 10 point system otherwise unremarkable Objective Objective Results - Vital Signs Date Time Temp Pulse Resp B/P Pulse Ox O2 Delivery O2 Flow Rate FiO2 10/04/16 18:00 99.1 101 16 118/63 98 10/04/16 06:00 97.6 109 18 127/64 98 I/O 10/03/16 10/03/16 10/03/16 10/04/16 10/04/16 10/04/16 07:00 15:00 23:00 07:00 15:00 23:00 Intake Total 480 ml 960 ml 1200 ml 600 ml 480 ml Balance 480 ml 960 ml 1200 ml 600 ml 480 ml Intake Oral 480 ml 960 ml 1200 ml 600 ml 480 ml # Voids 2 2 2 1 Imaging Last Impressions Foot X-Ray 09/24/16 0000 Signed Impressions: Service Date/Time: Saturday, September 24, 2016 17:59 - CONCLUSION: 1. No acute fracture or malalignment identified. 2. Chronic deformity of the mid and hindfoot with degenerative change. 3. Diffuse osteopenia. Alexander Walter MD Ankle X-Ray 09/24/16 0000 Signed Impressions: Service Date/Time: Saturday, September 24, 2016 17:56 - CONCLUSION: No acute fracture or malalignment. Chronic changes. Alexander Walter MD Physical Exam Physical Exam GENERAL: This is a well-nourished, well-developed patient, in no apparent distress. SKIN: No rashes, ecchymoses or lesions. Cool and dry. HEAD: Atraumatic. Normocephalic. No temporal or scalp tenderness. EYES: Pupils equal round and reactive. Extraocular motions intact. No scleral icterus. No injection or drainage. ENT: Nose without bleeding, purulent drainage or septal hematoma. Throat without erythema, tonsillar hypertrophy or exudate. Uvula midline. Airway patent. NECK: Trachea midline. No JVD or lymphadenopathy. Supple, nontender, no meningeal signs. CARDIOVASCULAR: Regular rate and rhythm without murmurs, gallops, or rubs. RESPIRATORY: Clear to auscultation. Breath sounds equal bilaterally. No wheezes , rales, or rhonchi. GASTROINTESTINAL: Abdomen soft, non-tender, nondistended. No hepato-splenomegaly , or palpable masses. No guarding. MUSCULOSKELETAL: Right ankle deformity, chronic, no other joint deformity. Trace pretibial edema. Pedal pulses 2+. NEUROLOGICAL: Awake, oriented x 3. Mood elevated. No focal deficits. Urinary Catheter: No Vascular Central Line Catheter: No A/P Assessment and Plan (1) Bipolar affective disorder, current episode manic with psychotic symptoms (2) Non-insulin dependent type 2 diabetes mellitus (3) HX LEFT LEG DVT (4) Anxiety (5) Hypertension Plan 66-year-old female with history of type 2 diabetes, left leg DVT, anxiety, hypertension, CVA. History of bipolar disorder, admitted with recurrent manic episode. -Continue with psychiatric care -Continue with present medication treatment plan for cbc and bmp yazan Type 2 diabetes-BGM stable -1800 ADA diet Continue with oral hypoglycemic. monitor sugar Accu-Chek before meals and at bedtime with insulin therapy -HgbA1c 6.1 Hypertension, initially elevated now stable Continue with home medication Clonidine when necessary as needed for systolic rhythm 160 and diastolic rhythm 90 tigist podiatry consult as nails trmmed helping pt in walking doing fairly well, no issues with blood glucose, BP stable We will sign off for now, please call if needed. D/W RN explained to pt. will follow Ilene Marcial MD Oct 04, 2016 22:20
[2016-10-05 05:19] VITALS: BP 115/60; PULSE 115; RESP 18; TEMP 98.1; O2SAT 98
[2016-10-05 07:41] LABS: HEMATOCRIT 33.1 % (35.0-46.0); MEAN CELL VOLUME 83.2 FL (80.0-100.0); MEAN CORPUSCULAR HEMOGLOBIN 28.1 PG (27.0-34.0); MEAN CORPUSCULAR HGB CONC 33.7 % (32.0-36.0); PLATELET COUNT 169 TH/MM3 (150-450); RED BLOOD COUNT 3.98 MIL/MM3 (4.00-5.30); RED CELL DISTRIBUTION WIDTH 13.9 % (11.6-17.2); REVIEW FLAG FINAL; WHITE BLOOD COUNT 4.3 TH/MM3 (4.0-11.0)
[2016-10-05] MEDS: THIOTHIXENE 5 MG CAP PO SCH ×2 (08:00→16:00)
[2016-10-05 08:07] LABS: BICARBONATE 26.2 MEQ/L (21.0-32.0); POTASSIUM 4.2 MEQ/L (3.5-5.1)
[2016-10-05] MEDS: glipiZIDE 10 MG TAB PO SCH (09:58)
[2016-10-05] MEDS: DIVALPROEX SODIUM E.R. 500 MG TAB PO SCH ×2 (09:58→21:06)
[2016-10-05] MEDS: LEVOFLOXACIN 500 MG TAB PO SCH (14:00)
--- NOTE | 2016-10-05 14:21 | HHI.PR ---
Subjective Remarks As per rn pt has swelling of left leg with ? erythema as per pt no pain walking ok offering no complaint sitting in day room calm no pain blood sugars stable BP okay no fever reported Review of systems a 10 point system otherwise unremarkable Objective Objective Results - Vital Signs Date Time Temp Pulse Resp B/P Pulse Ox O2 Delivery O2 Flow Rate FiO2 10/05/16 05:19 98.1 115 18 115/60 98 10/04/16 18:00 99.1 101 16 118/63 98 I/O 10/04/16 10/04/16 10/04/16 10/05/16 10/05/16 10/05/16 07:00 15:00 23:00 07:00 15:00 23:00 Intake Total 600 ml 840 ml 480 ml Balance 600 ml 840 ml 480 ml Intake Oral 600 ml 480 ml 480 ml Oral Supplement 360 ml # Voids 1 2 2 Result Diagram: 10/05/16 0630 10/05/16 0630 Imaging Last Impressions Foot X-Ray 09/24/16 0000 Signed Impressions: Service Date/Time: Saturday, September 24, 2016 17:59 - CONCLUSION: 1. No acute fracture or malalignment identified. 2. Chronic deformity of the mid and hindfoot with degenerative change. 3. Diffuse osteopenia. Alexander Walter MD Ankle X-Ray 09/24/16 0000 Signed Impressions: Service Date/Time: Saturday, September 24, 2016 17:56 - CONCLUSION: No acute fracture or malalignment. Chronic changes. Alexander Walter MD Other Results Laboratory Tests Test 10/05/16 06:30 White Blood Count 4.3 Red Blood Count 3.98 Hemoglobin 11.2 Hematocrit 33.1 Mean Corpuscular Volume 83.2 Mean Corpuscular Hemoglobin 28.1 Mean Corpuscular Hemoglobin 33.7 Concent Red Cell Distribution Width 13.9 Platelet Count 169 Mean Platelet Volume 9.7 Sodium Level 139 Potassium Level 4.2 Chloride Level 106 Carbon Dioxide Level 26.2 Anion Gap 7 Blood Urea Nitrogen 13 Creatinine 0.96 Estimat Glomerular Filtration 58 Rate Random Glucose 81 Calcium Level 8.7 Physical Exam Physical Exam GENERAL: This is a well-nourished, well-developed patient, in no apparent distress. SKIN: No rashes, ecchymoses or lesions. Cool and dry. HEAD: Atraumatic. Normocephalic. No temporal or scalp tenderness. EYES: Pupils equal round and reactive. Extraocular motions intact. No scleral icterus. No injection or drainage. ENT: Nose without bleeding, purulent drainage or septal hematoma. Throat without erythema, tonsillar hypertrophy or exudate. Uvula midline. Airway patent. NECK: Trachea midline. No JVD or lymphadenopathy. Supple, nontender, no meningeal signs. CARDIOVASCULAR: Regular rate and rhythm without murmurs, gallops, or rubs. RESPIRATORY: Clear to auscultation. Breath sounds equal bilaterally. No wheezes , rales, or rhonchi. GASTROINTESTINAL: Abdomen soft, non-tender, nondistended. No hepato-splenomegaly , or palpable masses. No guarding. MUSCULOSKELETAL: Right ankle deformity, chronic, no other joint deformity. + edema left leg with very mild erythema of ant lower 1/3 of leg. nontender no calf tenderness NEUROLOGICAL: Awake, oriented x 3. Mood elevated. No focal deficits. Urinary Catheter: No Vascular Central Line Catheter: No A/P Assessment and Plan (1) Bipolar affective disorder, current episode manic with psychotic symptoms (2) Non-insulin dependent type 2 diabetes mellitus (3) HX LEFT LEG DVT (4) Anxiety (5) Hypertension Plan 66-year-old female with history of type 2 diabetes, left leg DVT, anxiety, hypertension, CVA. History of bipolar disorder, admitted with recurrent manic episode. - as per pt she had blood clot before and was on xeralto couldnt cont bc of money issues. plan for us legs and start abx for ? cellulitis. will monitor -labs reviewed -Continue with psychiatric care -Continue with present medication treatment plan for cbc and bmp yazan Type 2 diabetes-BGM stable -1800 ADA diet Continue with oral hypoglycemic. monitor sugar Accu-Chek before meals and at bedtime with insulin therapy -HgbA1c 6.1 Hypertension, initially elevated now stable Continue with home medication Clonidine when necessary as needed for systolic rhythm 160 and diastolic rhythm 90 tigist podiatry consult as nails trmmed helping pt in walking doing fairly well, no issues with blood glucose, BP stable We will sign off for now, please call if needed. D/W RN explained to pt. will follow Ilene Lazo MD Oct 05, 2016 14:21
[2016-10-05 18:44] VITALS: BP 128/60; PULSE 104; RESP 18; TEMP 98.4; O2SAT 99
--- NOTE | 2016-10-05 19:44 | RADRPT ---
EXAM DATE/TIME: 10/05/2016 18:39 [facility] COMPARISON: No previous studies available for comparison. INDICATIONS : Bilateral leg swelling. MEDICAL HISTORY : Hypertension. Bipolar. Diabetic. Anticoagulant therapy, Xarelto. SURGICAL HISTORY : Right hip replacement. ENCOUNTER: Initial ACUITY: 1 day PAIN SCORE: 0/10 LOCATION: Bilateral leg. TECHNIQUE: Venous ultrasound of the left and right leg was performed from the inguinal ligament to the proximal calf. Real-time, color Doppler and spectral tracing, compression and augmentation techniques were us ed. FINDINGS: RIGHT LEG: There is normal compressibility of the deep venous system from the inguinal region to the proximal ca lf. No echogenic clot is seen in the lumen of the common femoral, femoral, popliteal, and posterior tibial veins. There is a normal response of the venous system to proximal and distal augmentation an d respiration. A small popliteal cyst is noted measuring 3.5 x 1.4 x 1.7 cm. LEFT LEG: There is normal compressibility of the deep venous system from the inguinal region to the proximal ca lf. No echogenic clot is seen in the lumen of the common femoral, femoral, popliteal, and posterior tibial veins. There is a normal response of the venous system to proximal and distal augmentation an d respiration. CONCLUSION: No evidence of deep venous thrombosis within the lower extremities. Small right popli teal cyst measuring 3.5 x 1.4 x 1.7 cm. August Arora MD on October 05, 2016 at 19:41 Board Certified Radiologist. This report was verified electronically.
[2016-10-05] MEDS: OLANZapine ODT 20 MG TAB PO SCH (21:00)
[2016-10-05] MEDS: glipiZIDE 5 MG TAB PO SCH (21:06)
[2016-10-06 05:08] VITALS: BP 117/70; PULSE 113; RESP 18; TEMP 97.8; O2SAT 94
[2016-10-06] MEDS: DIVALPROEX SODIUM E.R. 500 MG TAB PO SCH ×2 (08:58→20:41)
[2016-10-06] MEDS: LEVOFLOXACIN 500 MG TAB PO SCH (08:58)
[2016-10-06] MEDS: glipiZIDE 10 MG TAB PO SCH (08:58)
[2016-10-06] MEDS: THIOTHIXENE 5 MG CAP PO SCH ×2 (09:03→17:18)
--- NOTE | 2016-10-06 14:37 | HHI.PR ---
Subjective Remarks Patient is still has swelling of left leg as per pt no pain walking ok offering no complaint calm no pain blood sugars stable BP okay no fever reported Review of systems a 10 point system otherwise unremarkable Objective Objective Results - Vital Signs Date Time Temp Pulse Resp B/P Pulse Ox O2 Delivery O2 Flow Rate FiO2 10/06/16 05:08 97.8 113 18 117/70 94 10/05/16 18:44 98.4 104 18 128/60 99 I/O 10/05/16 10/05/16 10/05/16 10/06/16 10/06/16 10/06/16 07:00 15:00 23:00 07:00 15:00 23:00 Intake Total 960 ml 600 ml 0 ml 480 ml Balance 960 ml 600 ml 0 ml 480 ml Intake Oral 960 ml 0 ml 480 ml Oral Supplement 600 ml # Voids 2 2 2 3 1 Result Diagram: 10/05/16 0630 10/05/16 0630 Imaging Last Impressions Foot X-Ray 09/24/16 0000 Signed Impressions: Service Date/Time: Saturday, September 24, 2016 17:59 - CONCLUSION: 1. No acute fracture or malalignment identified. 2. Chronic deformity of the mid and hindfoot with degenerative change. 3. Diffuse osteopenia. Alexander Walter MD Ankle X-Ray 09/24/16 0000 Signed Impressions: Service Date/Time: Saturday, September 24, 2016 17:56 - CONCLUSION: No acute fracture or malalignment. Chronic changes. Alexander Walter MD Physical Exam Physical Exam GENERAL: This is a well-nourished, well-developed patient, in no apparent distress. SKIN: No rashes, ecchymoses or lesions. Cool and dry. HEAD: Atraumatic. Normocephalic. No temporal or scalp tenderness. EYES: Pupils equal round and reactive. Extraocular motions intact. No scleral icterus. No injection or drainage. ENT: Nose without bleeding, purulent drainage or septal hematoma. Throat without erythema, tonsillar hypertrophy or exudate. Uvula midline. Airway patent. NECK: Trachea midline. No JVD or lymphadenopathy. Supple, nontender, no meningeal signs. CARDIOVASCULAR: Regular rate and rhythm without murmurs, gallops, or rubs. RESPIRATORY: Clear to auscultation. Breath sounds equal bilaterally. No wheezes , rales, or rhonchi. GASTROINTESTINAL: Abdomen soft, non-tender, nondistended. No hepato-splenomegaly , or palpable masses. No guarding. MUSCULOSKELETAL: Right ankle deformity, chronic, no other joint deformity. + edema left leg with very minimal erythema of ant lower 1/3 of leg with some scratch kessler. nontender no calf tenderness NEUROLOGICAL: Awake, oriented x 3. Mood elevated. No focal deficits. Urinary Catheter: No Vascular Central Line Catheter: No A/P Assessment and Plan (1) Bipolar affective disorder, current episode manic with psychotic symptoms (2) Non-insulin dependent type 2 diabetes mellitus (3) HX LEFT LEG DVT (4) Anxiety (5) Hypertension Plan 66-year-old female with history of type 2 diabetes, left leg DVT, anxiety, hypertension, CVA. History of bipolar disorder, admitted with recurrent manic episode. - as per pt she had blood clot before and was on xeralto couldnt cont bc of money issues. Negative us legs for DVT and start abx for mild cellulitis. will monitor . Advise to keep leg elevated. -labs reviewed -Continue with psychiatric care -Continue with present medication treatment Labs reviewed Type 2 diabetes-BGM stable -1800 ADA diet Continue with oral hypoglycemic. monitor sugar Accu-Chek before meals and at bedtime with insulin therapy -HgbA1c 6.1 Hypertension, initially elevated now stable Continue with home medication Clonidine when necessary as needed for systolic rhythm 160 and diastolic rhythm 90 tigist podiatry consult as nails trmmed helping pt in walking doing fairly well, no issues with blood glucose, BP stable We will sign off for now, please call if needed. D/W RN explained to pt. will follow Ilene Lazo MD Oct 06, 2016 14:37
--- NOTE | 2016-10-06 15:10 | HHI.PYPN ---
Subjective Remarks Patient seen in day room with the floor staff, chart reviewed. All patient continues intense somewhat intrusive her overall affect is calm somewhat. She denies suicidality homicidality voices or visions. Has been compliant with her medication Review of Systems Except as stated in HPI: all other systems reviewed are Neg Objective Alert: Yes [place]: Person, Place Mood: Anxious (slightly decreased), Calm Affect: Manic (slightly decreased) Memory Intact: Comment (poor) Hallucinations: Auditory (appears to be responding to internal stimuli) Delusions: Yes Delusion Type: Paranoid (bizarre) Suicidal: Ideation (denies) Homicidal: Ideation (denies) Insight/Judgement Poor Vitals/IOs Vital Signs Date Time Temp Pulse Resp B/P Pulse Ox O2 Delivery O2 Flow Rate FiO2 10/06/16 05:08 97.8 113 18 117/70 94 Intake and Output 10/05/16 10/05/16 10/06/16 08:00 16:00 00:00 Intake Total 240 ml 720 ml 600 ml Balance 240 ml 720 ml 600 ml Assessment & Plan Problem List: (1) Bipolar affective disorder, current episode manic with psychotic symptoms ICD Code: F31.2 Assessment & Plan Estimated LOS: days patient continues somewhat manic and intrusive, although softening slightly, compliant medications Justification for Cont. Inpt. If this time patient will decompensate if placed in a lower level of care Discharge Planning To be determined Tim Ca MD Oct 06, 2016 15:10
[2016-10-06 17:53] VITALS: BP 114/56; PULSE 104; RESP 18; TEMP 98.8; O2SAT 94
[2016-10-06] MEDS: OLANZapine ODT 20 MG TAB PO SCH (20:42)
[2016-10-06] MEDS: glipiZIDE 5 MG TAB PO SCH (20:42)
[2016-10-07 04:57] VITALS: BP 130/56; PULSE 90; RESP 16; TEMP 98.2
[2016-10-07] MEDS: THIOTHIXENE 5 MG CAP PO SCH (08:00)
[2016-10-07] MEDS: DIVALPROEX SODIUM E.R. 500 MG TAB PO SCH ×2 (08:40→21:36)
[2016-10-07] MEDS: LEVOFLOXACIN 500 MG TAB PO SCH (08:41)
[2016-10-07] MEDS: glipiZIDE 10 MG TAB PO SCH (08:41)
--- NOTE | 2016-10-07 12:48 | HHI.PYPN ---
Subjective Remarks Patient seen in day room with nurse Santiago, continues intense somewhat disorganized and hypomanic but slightly softer than a few days ago she has been compliant medications also seeing her sleep is somewhat improved. Will increase knee having 25 mg 8 AM and 10 mg 4 PM Review of Systems Except as stated in HPI: all other systems reviewed are Neg Objective Alert: Yes [place]: Person, Place Mood: Anxious (slightly decreased), Calm Affect: Manic (slightly decreased) Memory Intact: Comment (poor) Hallucinations: Auditory (appears to be responding to internal stimuli) Delusions: Yes Delusion Type: Paranoid (bizarre) Suicidal: Ideation (denies) Homicidal: Ideation (denies) Insight/Judgement Poor Vitals/IOs Vital Signs Date Time Temp Pulse Resp B/P Pulse Ox O2 Delivery O2 Flow Rate FiO2 10/07/16 04:57 98.2 90 16 130/56 10/06/16 17:53 94 Intake and Output 10/06/16 10/06/16 10/07/16 08:00 16:00 00:00 Intake Total 0 ml 480 ml 600 ml Balance 0 ml 480 ml 600 ml Assessment & Plan Problem List: (1) Bipolar affective disorder, current episode manic with psychotic symptoms ICD Code: F31.2 Assessment & Plan Estimated LOS: days patient continues manic grandiose still slightly softer. Please see medication adjustments above Justification for Cont. Inpt. At this time patient will decompensate if placed in a lower level of care Discharge Planning To be determined Tim Ca MD Oct 07, 2016 12:48
--- NOTE | 2016-10-07 13:09 | HHI.PR ---
Subjective Remarks Patient is still has swelling of left leg as per pt no pain walking ok offering no complaint calm sitting on a chair the day room blood sugars stable BP okay no fever reported Review of systems a 10 point system otherwise unremarkable Objective Objective Results - Vital Signs Date Time Temp Pulse Resp B/P Pulse Ox O2 Delivery O2 Flow Rate FiO2 10/07/16 04:57 98.2 90 16 130/56 10/06/16 17:53 98.8 104 18 114/56 94 I/O 10/06/16 10/06/16 10/06/16 10/07/16 10/07/16 10/07/16 07:00 15:00 23:00 07:00 15:00 23:00 Intake Total 0 ml 480 ml 600 ml 0 ml 1560 ml Balance 0 ml 480 ml 600 ml 0 ml 1560 ml Intake Oral 0 ml 480 ml 600 ml 0 ml 1560 ml # Voids 3 1 2 2 2 # Bowel Movements 1 Result Diagram: 10/05/16 0630 10/05/16 0630 Imaging Last Impressions Foot X-Ray 09/24/16 0000 Signed Impressions: Service Date/Time: Saturday, September 24, 2016 17:59 - CONCLUSION: 1. No acute fracture or malalignment identified. 2. Chronic deformity of the mid and hindfoot with degenerative change. 3. Diffuse osteopenia. Alexander Walter MD Ankle X-Ray 09/24/16 0000 Signed Impressions: Service Date/Time: Saturday, September 24, 2016 17:56 - CONCLUSION: No acute fracture or malalignment. Chronic changes. Alexander Walter MD Physical Exam Physical Exam GENERAL: This is a well-nourished, well-developed patient, in no apparent distress. SKIN: No rashes, ecchymoses or lesions. Cool and dry. HEAD: Atraumatic. Normocephalic. No temporal or scalp tenderness. EYES: Pupils equal round and reactive. Extraocular motions intact. No scleral icterus. No injection or drainage. ENT: Nose without bleeding, purulent drainage or septal hematoma. Throat without erythema, tonsillar hypertrophy or exudate. Uvula midline. Airway patent. NECK: Trachea midline. No JVD or lymphadenopathy. Supple, nontender, no meningeal signs. CARDIOVASCULAR: Regular rate and rhythm without murmurs, gallops, or rubs. RESPIRATORY: Clear to auscultation. Breath sounds equal bilaterally. No wheezes , rales, or rhonchi. GASTROINTESTINAL: Abdomen soft, non-tender, nondistended. No hepato-splenomegaly , or palpable masses. No guarding. MUSCULOSKELETAL: Right ankle deformity, chronic, no other joint deformity. + edema left leg with very some erythema of ant lower 1/3 of leg with some scratch kessler. nontender no calf tenderness NEUROLOGICAL: Awake, oriented x 3. Mood elevated. No focal deficits. Urinary Catheter: No Vascular Central Line Catheter: No A/P Assessment and Plan (1) Bipolar affective disorder, current episode manic with psychotic symptoms (2) Non-insulin dependent type 2 diabetes mellitus (3) HX LEFT LEG DVT (4) Anxiety (5) Hypertension Plan 66-year-old female with history of type 2 diabetes, left leg DVT, anxiety, hypertension, CVA. History of bipolar disorder, admitted with recurrent manic episode. - as per pt she had blood clot before and was on xeralto couldnt cont bc of money issues. Negative us legs for DVT and start abx for mild cellulitis. Continue Levaquin start doxycycline. Will monitor . Advise to keep leg elevated. -labs reviewed -Continue with psychiatric care -Continue with present medication treatment Labs reviewed Type 2 diabetes-BGM stable -1800 ADA diet Continue with oral hypoglycemic. monitor sugar Accu-Chek before meals and at bedtime with insulin therapy -HgbA1c 6.1 Hypertension, initially elevated now stable Continue with home medication Clonidine when necessary as needed for systolic rhythm 160 and diastolic rhythm 90 tigist podiatry consult as nails trmmed helping pt in walking doing fairly well, no issues with blood glucose, BP stable We will sign off for now, please call if needed. D/W RN explained to pt. will follow Ilene Lazo MD Oct 07, 2016 13:09
[2016-10-07] MEDS: DOXYCYCLINE HYCLATE 100 MG CAP PO SCH ×2 (13:28→21:36)
[2016-10-07] MEDS: THIOTHIXENE 10 MG CAP PO SCH (16:00)
[2016-10-07 17:33] VITALS: BP 129/56; PULSE 105; TEMP 98.4; O2SAT 99
[2016-10-07 19:11] VITALS: BP 128/56; PULSE 105; TEMP 98.4; O2SAT 99
[2016-10-07] MEDS: OLANZapine ODT 20 MG TAB PO SCH (21:00)
[2016-10-07] MEDS: glipiZIDE 5 MG TAB PO SCH (21:36)
[2016-10-08 06:10] VITALS: BP 105/55; PULSE 99; RESP 15; TEMP 97.4; O2SAT 97
[2016-10-08] MEDS: DIVALPROEX SODIUM E.R. 500 MG TAB PO SCH ×2 (08:43→20:49)
[2016-10-08] MEDS: glipiZIDE 10 MG TAB PO SCH (08:43)
[2016-10-08] MEDS: LEVOFLOXACIN 500 MG TAB PO SCH (08:43)
[2016-10-08] MEDS: DOXYCYCLINE HYCLATE 100 MG CAP PO SCH ×2 (08:43→20:49)
[2016-10-08] MEDS: THIOTHIXENE 5 MG CAP PO SCH (08:43)
--- NOTE | 2016-10-08 11:39 | HHI.PR ---
Subjective Remarks Patient is still has swelling of left leg as per pt no pain on standing or walking offering no complaint calm sitting on a chair the day room blood sugars stable BP okay no fever reported Review of systems a 10 point system otherwise unremarkable Objective Objective Results - Vital Signs Date Time Temp Pulse Resp B/P Pulse Ox O2 Delivery O2 Flow Rate FiO2 10/08/16 06:10 97.4 99 15 105/55 97 10/07/16 19:11 98.4 105 128/56 99 10/07/16 17:33 98.4 105 129/56 99 I/O 10/07/16 10/07/16 10/07/16 10/08/16 10/08/16 10/08/16 07:00 15:00 23:00 07:00 15:00 23:00 Intake Total 0 ml 1560 ml 360 ml 1080 ml 240 ml Balance 0 ml 1560 ml 360 ml 1080 ml 240 ml Intake Oral 0 ml 1560 ml 360 ml 1080 ml 240 ml # Voids 2 2 4 Result Diagram: 10/05/16 0630 10/05/16 0630 Imaging Last Impressions Foot X-Ray 09/24/16 0000 Signed Impressions: Service Date/Time: Saturday, September 24, 2016 17:59 - CONCLUSION: 1. No acute fracture or malalignment identified. 2. Chronic deformity of the mid and hindfoot with degenerative change. 3. Diffuse osteopenia. Alexander Walter MD Ankle X-Ray 09/24/16 0000 Signed Impressions: Service Date/Time: Saturday, September 24, 2016 17:56 - CONCLUSION: No acute fracture or malalignment. Chronic changes. Alexander Walter MD Physical Exam Physical Exam GENERAL: This is a well-nourished, well-developed patient, in no apparent distress. SKIN: No rashes, ecchymoses or lesions. Cool and dry. HEAD: Atraumatic. Normocephalic. No temporal or scalp tenderness. EYES: Pupils equal round and reactive. Extraocular motions intact. No scleral icterus. No injection or drainage. ENT: Nose without bleeding, purulent drainage or septal hematoma. Throat without erythema, tonsillar hypertrophy or exudate. Uvula midline. Airway patent. NECK: Trachea midline. No JVD or lymphadenopathy. Supple, nontender, no meningeal signs. CARDIOVASCULAR: Regular rate and rhythm without murmurs, gallops, or rubs. RESPIRATORY: Clear to auscultation. Breath sounds equal bilaterally. No wheezes , rales, or rhonchi. GASTROINTESTINAL: Abdomen soft, non-tender, nondistended. No hepato-splenomegaly , or palpable masses. No guarding. MUSCULOSKELETAL: Right ankle deformity, chronic, no other joint deformity. + edema left leg with very mild erythema of ant lower 1/3 of leg with some scratch kessler. nontender no calf tenderness NEUROLOGICAL: Awake, oriented x 3. Mood elevated. No focal deficits. Urinary Catheter: No Vascular Central Line Catheter: No A/P Assessment and Plan (1) Bipolar affective disorder, current episode manic with psychotic symptoms (2) Non-insulin dependent type 2 diabetes mellitus (3) HX LEFT LEG DVT (4) Anxiety (5) Hypertension Plan 66-year-old female with history of type 2 diabetes, left leg DVT, anxiety, hypertension, CVA. History of bipolar disorder, admitted with recurrent manic episode. - as per pt she had blood clot before and was on xeralto couldnt cont bc of money issues. Negative us legs for DVT and continue abx for mild cellulitis. Continue Levaquin/doxycycline. Will monitor . Advise to keep leg elevated. -labs reviewed -Continue with psychiatric care -Continue with present medication treatment Labs reviewed Type 2 diabetes-BGM stable -1800 ADA diet Continue with oral hypoglycemic. monitor sugar Accu-Chek before meals and at bedtime with insulin therapy -HgbA1c 6.1 Hypertension, initially elevated now stable Continue with home medication Clonidine when necessary as needed for systolic rhythm 160 and diastolic rhythm 90 tigist podiatry consult as nails trmmed helping pt in walking doing fairly well, no issues with blood glucose, BP stable We will sign off for now, please call if needed. D/W RN explained to pt. will follow Ilene Lazo MD Oct 08, 2016 11:39
--- NOTE | 2016-10-08 13:53 | HHI.PYPN ---
Subjective Remarks Pt seen and discussed with staff. Pt has been calm and cooperative. She states "psychiatrically, I'm getting used to it. I'm happy, happy , happy, then I have to chill out. But that it how it is supposed to be." She remains somewhat loose and disorganized, but mood is improved. No agitation on unit. No medication side effects. Objective Alert: Yes [place]: Person, Place Mood: Calm Affect: Restricted Memory Intact: Comment (poor) Hallucinations: Auditory (appears to be responding to internal stimuli) Delusions: Yes Delusion Type: Paranoid Suicidal: Ideation (denies) Homicidal: Ideation (denies) Insight/Judgement poor Vitals/IOs Vital Signs Date Time Temp Pulse Resp B/P Pulse Ox O2 Delivery O2 Flow Rate FiO2 10/08/16 06:10 97.4 99 15 105/55 97 Intake and Output 10/07/16 10/07/16 10/08/16 08:00 16:00 00:00 Intake Total 0 ml 1560 ml 1200 ml Balance 0 ml 1560 ml 1200 ml Assessment & Plan Problem List: (1) Bipolar affective disorder, current episode manic with psychotic symptoms ICD Code: F31.2 Assessment & Plan Continue current tx plan. Estimated LOS: days Justification for Cont. 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
[2016-10-08] MEDS: THIOTHIXENE 10 MG CAP PO SCH (16:00)
[2016-10-08] MEDS: diphenhydrAMINE HCL 25 MG CAP PO PRN (20:50)
[2016-10-08] MEDS: OLANZapine ODT 20 MG TAB PO SCH (20:50)
[2016-10-08] MEDS: glipiZIDE 5 MG TAB PO SCH (21:00)
[2016-10-08 21:03] VITALS: BP 112/59; PULSE 61; TEMP 98.8; O2SAT 97
[2016-10-09 05:07] VITALS: BP 117/54; PULSE 105; RESP 18; TEMP 96.7; O2SAT 96
[2016-10-09] MEDS: glipiZIDE 10 MG TAB PO SCH (08:10)
[2016-10-09] MEDS: DIVALPROEX SODIUM E.R. 500 MG TAB PO SCH ×2 (08:41→20:28)
[2016-10-09] MEDS: LEVOFLOXACIN 500 MG TAB PO SCH (08:41)
[2016-10-09] MEDS: THIOTHIXENE 5 MG CAP PO SCH (08:41)
[2016-10-09] MEDS: DOXYCYCLINE HYCLATE 100 MG CAP PO SCH ×2 (08:41→20:28)
--- NOTE | 2016-10-09 15:09 | HHI.PR ---
Subjective Remarks Patient is still has some swelling of leg as per pt no pain on standing or walking offering no complaint calm sitting on a chair the day room blood sugars stable BP okay no fever reported Review of systems a 10 point system otherwise unremarkable Objective Objective Results - Vital Signs Date Time Temp Pulse Resp B/P Pulse Ox O2 Delivery O2 Flow Rate FiO2 10/09/16 05:07 96.7 105 18 117/54 96 10/08/16 21:03 98.8 61 112/59 97 I/O 10/08/16 10/08/16 10/08/16 10/09/16 10/09/16 10/09/16 07:00 15:00 23:00 07:00 15:00 23:00 Intake Total 1080 ml 960 ml 1480 ml 320 ml 1440 ml Balance 1080 ml 960 ml 1480 ml 320 ml 1440 ml Intake Oral 1080 ml 960 ml 1480 ml 320 ml 1440 ml # Voids 4 1 2 3 2 # Bowel Movements 0 0 Result Diagram: 10/05/16 0630 10/05/16 0630 Imaging Last Impressions Foot X-Ray 09/24/16 0000 Signed Impressions: Service Date/Time: Saturday, September 24, 2016 17:59 - CONCLUSION: 1. No acute fracture or malalignment identified. 2. Chronic deformity of the mid and hindfoot with degenerative change. 3. Diffuse osteopenia. Alexander Walter MD Ankle X-Ray 09/24/16 0000 Signed Impressions: Service Date/Time: Saturday, September 24, 2016 17:56 - CONCLUSION: No acute fracture or malalignment. Chronic changes. Alexander Walter MD Physical Exam Physical Exam GENERAL: This is a well-nourished, well-developed patient, in no apparent distress. SKIN: No rashes, ecchymoses or lesions. Cool and dry. HEAD: Atraumatic. Normocephalic. No temporal or scalp tenderness. EYES: Pupils equal round and reactive. Extraocular motions intact. No scleral icterus. No injection or drainage. ENT: Nose without bleeding, purulent drainage or septal hematoma. Throat without erythema, tonsillar hypertrophy or exudate. Uvula midline. Airway patent. NECK: Trachea midline. No JVD or lymphadenopathy. Supple, nontender, no meningeal signs. CARDIOVASCULAR: Regular rate and rhythm without murmurs, gallops, or rubs. RESPIRATORY: Clear to auscultation. Breath sounds equal bilaterally. No wheezes , rales, or rhonchi. GASTROINTESTINAL: Abdomen soft, non-tender, nondistended. No hepato-splenomegaly , or palpable masses. No guarding. MUSCULOSKELETAL: Right ankle deformity, chronic, no other joint deformity. + edema left leg with very minimal erythema of ant lower 1/3 of leg with some scratch kessler healing. nontender no calf tenderness NEUROLOGICAL: Awake, oriented x 3. Mood elevated. No focal deficits. Urinary Catheter: No Vascular Central Line Catheter: No A/P Assessment and Plan (1) Bipolar affective disorder, current episode manic with psychotic symptoms (2) Non-insulin dependent type 2 diabetes mellitus (3) HX LEFT LEG DVT (4) Anxiety (5) Hypertension Plan 66-year-old female with history of type 2 diabetes, left leg DVT, anxiety, hypertension, CVA. History of bipolar disorder, admitted with recurrent manic episode. - as per pt she had blood clot before and was on xeralto couldnt cont bc of money issues. Negative us legs for DVT and continue abx course for mild cellulitis. Continue Levaquin/doxycycline. Will monitor . Advise to keep leg elevated. -labs reviewed -Continue with psychiatric care -Continue with present medication treatment Labs reviewed Type 2 diabetes-BGM stable -1800 ADA diet Continue with oral hypoglycemic. monitor sugar Accu-Chek before meals and at bedtime with insulin therapy -HgbA1c 6.1 Hypertension, initially elevated now stable Continue with home medication Clonidine when necessary as needed for systolic rhythm 160 and diastolic rhythm 90 tigist podiatry consult as nails trimmed helping pt in walking doing fairly well, no issues with blood glucose, BP stable We will sign off for now, please call if needed. D/W RN explained to pt. will follow on when necessary basis call if needed Ilene Lazo MD Oct 09, 2016 15:09
--- NOTE | 2016-10-09 15:26 | HHI.PYPN ---
Subjective Remarks Pt seen and discussed with staff. Pt remains delusional but mood is improved. Insight into illness remains poor. No medication side effects. No SI/HI. Objective Alert: Yes [place]: Person, Place Mood: Calm Affect: Restricted Memory Intact: Comment (poor) Hallucinations: Auditory (appears to be responding to internal stimuli) Delusions: Yes Delusion Type: Paranoid Suicidal: Ideation (denies) Homicidal: Ideation (denies) Insight/Judgement poor Vitals/IOs Vital Signs Date Time Temp Pulse Resp B/P Pulse Ox O2 Delivery O2 Flow Rate FiO2 10/09/16 05:07 96.7 105 18 117/54 96 Intake and Output 10/08/16 10/08/16 10/09/16 08:00 16:00 00:00 Intake Total 480 ml 720 ml 1480 ml Balance 480 ml 720 ml 1480 ml Assessment & Plan Problem List: (1) Bipolar affective disorder, current episode manic with psychotic symptoms ICD Code: F31.2 Assessment & Plan Continue current tx plan. Estimated LOS: days Justification for Cont. Inpt. impairments in reality testing and complicating medical conditions. Betsy Bacon MD Oct 09, 2016 3:26 pm
[2016-10-09] MEDS: THIOTHIXENE 10 MG CAP PO SCH (16:00)
[2016-10-09 19:18] VITALS: BP 107/54; PULSE 105; RESP 18; TEMP 97.2; O2SAT 97
[2016-10-09] MEDS: LORazepam 0.5 MG TAB age > 65 yrs PO PRN (20:28)
[2016-10-09] MEDS: OLANZapine ODT 20 MG TAB PO SCH (20:28)
[2016-10-09] MEDS: diphenhydrAMINE HCL 25 MG CAP PO PRN (20:29)
[2016-10-10 06:08] VITALS: BP 115/58; PULSE 123; RESP 18; TEMP 97.3; O2SAT 97
[2016-10-10] MEDS: LEVOFLOXACIN 500 MG TAB PO SCH (09:02)
[2016-10-10] MEDS: DIVALPROEX SODIUM E.R. 500 MG TAB PO SCH ×2 (09:03→20:36)
[2016-10-10] MEDS: glipiZIDE 10 MG TAB PO SCH (09:03)
[2016-10-10] MEDS: DOXYCYCLINE HYCLATE 100 MG CAP PO SCH ×2 (09:03→20:35)
[2016-10-10] MEDS: THIOTHIXENE 5 MG CAP PO SCH (09:03)
--- NOTE | 2016-10-10 15:55 | HHI.PR ---
Subjective Interval History awake alert sitting in recliner pleasant laddavida denies any complaints Vitals/Results Intake & Output 10/09/16 10/09/16 10/10/16 15:00 23:00 07:00 Intake Total 1440 ml 1700 ml 180 ml Balance 1440 ml 1700 ml 180 ml Intake Oral 1440 ml 1700 ml 180 ml # Voids 2 3 2 Vital Signs Vital Signs Date Time Temp Pulse Resp B/P Pulse Ox O2 Delivery O2 Flow Rate FiO2 10/10/16 06:08 97.3 123 18 115/58 97 10/09/16 19:18 97.2 105 18 107/54 97 Assessment/Plan Assessment/Plan Physical Exam Physical Exam GENERAL: This is a well-nourished, well-developed patient, in no apparent distress. SKIN: No rashes, ecchymoses or lesions. Cool and dry. HEAD: Atraumatic. Normocephalic. No temporal or scalp tenderness. EYES: Pupils equal round and reactive. Extraocular motions intact. No scleral icterus. No injection or drainage. ENT: Nose without bleeding, purulent drainage or septal hematoma. Throat without erythema, tonsillar hypertrophy or exudate. Uvula midline. Airway patent. NECK: Trachea midline. No JVD or lymphadenopathy. Supple, nontender, no meningeal signs. CARDIOVASCULAR: Regular rate and rhythm without murmurs, gallops, or rubs. RESPIRATORY: Clear to auscultation. Breath sounds equal bilaterally. No wheezes , rales, or rhonchi. GASTROINTESTINAL: Abdomen soft, non-tender, nondistended. No hepato-splenomegaly , or palpable masses. No guarding. MUSCULOSKELETAL: Right ankle deformity, chronic, no other joint deformity. + edema left leg with very minimal erythema of ant lower 1/3 of leg with some scratch kessler healing. nontender no calf tenderness NEUROLOGICAL: Awake, oriented x 3. Mood elevated. No focal deficits. Urinary Catheter: No Vascular Central Line Catheter: No Plan A/P Assessment and Plan (1) Bipolar affective disorder, current episode manic with psychotic symptoms (2) Non-insulin dependent type 2 diabetes mellitus (3) HX LEFT LEG DVT (4) Anxiety (5) Hypertension (6) Cellulitis LLE Plan 66-year-old female with history of type 2 diabetes, left leg DVT, anxiety, hypertension, CVA. History of bipolar disorder, admitted with recurrent manic episode. - as per pt she had blood clot before and was on xeralto couldnt cont bc of money issues. Negative us legs for DVT and continue abx course for mild cellulitis. Continue Levaquin/doxycycline. Will monitor . Advise to keep leg elevated. -labs reviewed -Continue with psychiatric care -Continue with present medication treatment Labs reviewed Type 2 diabetes-BGM stable -1800 ADA diet Continue with oral hypoglycemic. monitor sugar Accu-Chek before meals and at bedtime with insulin therapy -HgbA1c 6.1 Hypertension, initially elevated now stable Continue with home medication Clonidine when necessary as needed for systolic rhythm 160 and diastolic rhythm 90 tigist podiatry consult as nails trimmed helping pt in walking doing fairly well, no issues with blood glucose, BP stable - will follow intermittently , please call if needed D/W RN explained to pt. Ashlee Hoffman MD Oct 10, 2016 15:55
[2016-10-10] MEDS: THIOTHIXENE 10 MG CAP PO SCH (16:00)
[2016-10-10 16:30] VITALS: BP 118/56; PULSE 93; RESP 18; TEMP 98.3; O2SAT 92
--- NOTE | 2016-10-10 17:06 | HHI.PYPN ---
Subjective Remarks Patient discussed with treatment team, chart review, patient remains somewhat grandiose and delusional though somewhat softer, less intrusive. Will increase the having to 10 mg 8 AM and p.m. Review of Systems Except as stated in HPI: all other systems reviewed are Neg Objective Alert: Yes [place]: Person, Place Mood: Calm Affect: Restricted Memory Intact: Comment (poor) Hallucinations: Auditory (appears to be responding to internal stimuli) Delusions: Yes Delusion Type: Paranoid Suicidal: Ideation (denies) Homicidal: Ideation (denies) Insight/Judgement Very poor Vitals/IOs Vital Signs Date Time Temp Pulse Resp B/P Pulse Ox O2 Delivery O2 Flow Rate FiO2 10/10/16 16:30 98.3 93 18 118/56 92 Intake and Output 10/09/16 10/09/16 10/10/16 08:00 16:00 00:00 Intake Total 560 ml 1200 ml 1700 ml Balance 560 ml 1200 ml 1700 ml Assessment & Plan Problem List: (1) Bipolar affective disorder, current episode manic with psychotic symptoms ICD Code: F31.2 Assessment & Plan Estimated LOS: days patient remains somewhat manic intrusive and grandiose see medication adjustments about Justification for Cont. Inpt. With this time patient decompensate if placed in a lower level of care Discharge Planning To be determined Tim Ca MD Oct 10, 2016 17:06
[2016-10-10] MEDS: diphenhydrAMINE HCL 25 MG CAP PO PRN (20:36)
[2016-10-10] MEDS: OLANZapine ODT 20 MG TAB PO SCH (20:36)
[2016-10-10] MEDS: glipiZIDE 5 MG TAB PO SCH (20:36)
[2016-10-11 06:21] VITALS: BP 119/58; PULSE 115; PULSE 97; RESP 17; TEMP 97.4; O2SAT 95
[2016-10-11] MEDS: DIVALPROEX SODIUM E.R. 500 MG TAB PO SCH ×2 (10:25→21:37)
[2016-10-11] MEDS: glipiZIDE 10 MG TAB PO SCH (10:26)
[2016-10-11] MEDS: DOXYCYCLINE HYCLATE 100 MG CAP PO SCH ×2 (10:26→21:38)
[2016-10-11] MEDS: THIOTHIXENE 10 MG CAP PO SCH ×2 (10:26→16:48)
[2016-10-11] MEDS: LEVOFLOXACIN 500 MG TAB PO SCH (10:26)
--- NOTE | 2016-10-11 14:12 | HHI.PYPN ---
Subjective Remarks Patient seen in day room, patient alert oriented, continues intense somewhat intrusive with her speech and eye contact. Today focusing on issues related to her disabled adult daughter. She does somewhat reluctantly acknowledge auditory hallucinations of a grandiose nature perhaps alevism in some content. Patient compliant medications. For now continue treatment Review of Systems Except as stated in HPI: all other systems reviewed are Neg Objective Alert: Yes [place]: Person, Place Mood: Calm Affect: Restricted Memory Intact: Comment (poor) Hallucinations: Auditory (appears to be responding to internal stimuli) Delusions: Yes Delusion Type: Paranoid Suicidal: Ideation (denies) Homicidal: Ideation (denies) Insight/Judgement Poor Vitals/IOs Vital Signs Date Time Temp Pulse Resp B/P Pulse Ox O2 Delivery O2 Flow Rate FiO2 10/11/16 06:21 97.4 97 17 119/58 95 Intake and Output 10/10/16 10/10/16 10/11/16 08:00 16:00 00:00 Intake Total 180 ml 1200 ml 1800 ml Balance 180 ml 1200 ml 1800 ml Assessment & Plan Problem List: (1) Bipolar affective disorder, current episode manic with psychotic symptoms ICD Code: F31.2 Assessment & Plan Estimated LOS: days patient continue somewhat hypomanic, intense, grandiose, though she is compliant with medications. Justification for Cont. Inpt. At this time patient will decompensate placed in the lower level of care Discharge Planning To be determined Tim Ca MD Oct 11, 2016 14:12
--- NOTE | 2016-10-11 14:49 | HHI.PR ---
Subjective Remarks up in chair and room alert, conversational No acute pain No SOB denies any itching, but lt. leg positive for scratching afebrile Objective Objective Results - Vital Signs Date Time Temp Pulse Resp B/P Pulse Ox O2 Delivery O2 Flow Rate FiO2 10/11/16 06:21 97.4 97 17 119/58 95 10/10/16 16:30 98.3 93 18 118/56 92 I/O 10/10/16 10/10/16 10/10/16 10/11/16 10/11/16 10/11/16 07:00 15:00 23:00 07:00 15:00 23:00 Intake Total 180 ml 1200 ml 1800 ml 600 ml Balance 180 ml 1200 ml 1800 ml 600 ml Intake Oral 180 ml 1200 ml 1800 ml 600 ml # Voids 2 5 1 2 ROS General: Other (10 point ROS done. cellulitis LE, lt > rt.) Cardiac: Edema (LE, lt > rt.) Physical Exam Physical Exam PHYSICAL EXAMINATION GENERAL: This is a well-developed, well-nourished female who appears to be in no acute distress. She is alert and awake, HEAD: Normocephalic without any lesion or mass noted. Facial features appear symmetric. OROPHARYNGEAL: Oropharynx without erythema or edema. NECK: Supple. No nuchal rigidity or lymphadenopathy. Trachea midline without deviation. CARDIAC: Regular rhythm, regular rate, S1 and S2 are heard. LUNGS: Clear to auscultation bilaterally. No rhonchi ABDOMEN: Soft, nontender, EXTREMITIES: bilateral cellulitis, left LE > rt. LE. some old scratches LLL, but denies any urticaria NEUROLOGICAL: Patient mood and affect appropriate. No focal deficit SKIN:Warm and moist Objective Remarks I get constipated too. A/P Assessment and Plan Lt. leg cellulitis, non infection. DVT Elevate as much as possible. Lotion for any itching vital signs reviewed, stable , monitor for any abnormals HGB 11.2 , stable DM, 2 -1800 ADA diet Accu-Chek before meals and at bedtime with insulin therapy Hypertension,stable medical mangement Discussed With: Nurse, Family (pt.), Other (Dr. Still, seen on her behalf) Renetta Potts Oct 11, 2016 14:49
[2016-10-11 18:05] VITALS: BP 112/57; PULSE 90; RESP 18; TEMP 97.6; O2SAT 98
[2016-10-11] MEDS: glipiZIDE 5 MG TAB PO SCH (21:00)
[2016-10-11] MEDS: OLANZapine ODT 20 MG TAB PO SCH (21:00)
[2016-10-11] MEDS: diphenhydrAMINE HCL 25 MG CAP PO PRN (21:38)
[2016-10-12 06:00] VITALS: BP 97/51; PULSE 113; RESP 18; TEMP 97.5; O2SAT 97
[2016-10-12] MEDS: DIVALPROEX SODIUM E.R. 500 MG TAB PO SCH ×2 (09:31→21:00)
[2016-10-12] MEDS: DOXYCYCLINE HYCLATE 100 MG CAP PO SCH ×2 (09:31→21:00)
[2016-10-12] MEDS: LEVOFLOXACIN 500 MG TAB PO SCH (09:31)
[2016-10-12] MEDS: THIOTHIXENE 10 MG CAP PO SCH ×2 (09:31→16:00)
[2016-10-12] MEDS: glipiZIDE 10 MG TAB PO SCH (09:31)
--- NOTE | 2016-10-12 14:46 | HHI.PYPN ---
Subjective Remarks Patient discussed with treatment team, chart review, Patient seen in day room with nurse Steve. Patient's intensity of her mood intrusiveness, have softened. Her eye contact is also softened. She still focus is somewhat on relationship with her daughter and her daughter's maladies. Compliant medications. Review of Systems Except as stated in HPI: all other systems reviewed are Neg Objective Alert: Yes [place]: Person, Place Mood: Calm Affect: Restricted Memory Intact: Comment (poor) Hallucinations: Auditory (appears to be responding to internal stimuli) Delusions: Yes Delusion Type: Paranoid Suicidal: Ideation (denies) Homicidal: Ideation (denies) Insight/Judgement Very poor Vitals/IOs Vital Signs Date Time Temp Pulse Resp B/P Pulse Ox O2 Delivery O2 Flow Rate FiO2 10/12/16 06:00 97.5 113 18 97/51 97 Intake and Output 10/11/16 10/11/16 10/12/16 08:00 16:00 00:00 Intake Total 600 ml 1350 ml Balance 600 ml 1350 ml Assessment & Plan Problem List: (1) Bipolar affective disorder, current episode manic with psychotic symptoms ICD Code: F31.2 Assessment & Plan Estimated LOS: days patient's mena and intrusiveness have softened somewhat, compliant medications. Justification for Cont. Inpt. At this time patient will decompensate if place to low level of care Discharge Planning To be determined Tim Ca MD Oct 12, 2016 14:46
[2016-10-12 20:00] VITALS: BP 103/56; PULSE 102; RESP 16; TEMP 98.8; O2SAT 96
[2016-10-12] MEDS: glipiZIDE 5 MG TAB PO SCH (21:00)
[2016-10-12] MEDS: OLANZapine ODT 20 MG TAB PO SCH (21:00)
[2016-10-13 06:00] VITALS: BP 104/58; PULSE 100; RESP 18; TEMP 99.4; O2SAT 96
[2016-10-13] MEDS: glipiZIDE 10 MG TAB PO SCH (09:26)
[2016-10-13] MEDS: DIVALPROEX SODIUM E.R. 500 MG TAB PO SCH ×2 (09:26→20:30)
[2016-10-13] MEDS: LEVOFLOXACIN 500 MG TAB PO SCH (09:26)
[2016-10-13] MEDS: DOXYCYCLINE HYCLATE 100 MG CAP PO SCH ×2 (09:26→20:27)
[2016-10-13] MEDS: THIOTHIXENE 10 MG CAP PO SCH ×2 (09:31→16:34)
--- NOTE | 2016-10-13 09:45 | HHI.PYPN ---
Subjective Remarks Patient seen in day room with nurse Aliza, chart reviewed, patient compliant medications. Patient's affect somewhat decreased in range and intensity, or eye contact remains good. Her speech has slowed. Though still references to her daughter and family. She is vague about any voices today. Does denies suicidality today. Review of Systems Except as stated in HPI: all other systems reviewed are Neg Objective Alert: Yes [place]: Person, Place Mood: Calm Affect: Restricted Memory Intact: Comment (poor) Hallucinations: Auditory (appears to be responding to internal stimuli) Delusions: Yes Delusion Type: Paranoid Suicidal: Ideation (denies) Homicidal: Ideation (denies) Insight/Judgement Poor Vitals/IOs Vital Signs Date Time Temp Pulse Resp B/P Pulse Ox O2 Delivery O2 Flow Rate FiO2 10/13/16 06:00 99.4 100 18 104/58 96 Intake and Output 10/12/16 10/12/16 10/13/16 08:00 16:00 00:00 Intake Total 420 ml 1440 ml Balance 420 ml 1440 ml Assessment & Plan Problem List: (1) Bipolar affective disorder, current episode manic with psychotic symptoms ICD Code: F31.2 Assessment & Plan Estimated LOS: days patient's anemia is decreasing her affect is showing less range and intensity. She is vague about persistent auditory hallucinations. Though compliant medications. For now continue treatment Justification for Cont. Inpt. At this time the patient would decompensate if placed in a lower level of care Discharge Planning To be determined Tim Ca MD Oct 13, 2016 09:45
--- NOTE | 2016-10-13 16:55 | HHI.PR ---
Subjective Remarks sitting in day room legs edematous, has not elevated as much today no cp no sob no fever blood glucose fluctuating 97 this morning, 130s later in the day Objective Objective Results - Vital Signs Date Time Temp Pulse Resp B/P Pulse Ox O2 Delivery O2 Flow Rate FiO2 10/13/16 06:00 99.4 100 18 104/58 96 10/12/16 20:00 98.8 102 16 103/56 96 I/O 10/12/16 10/12/16 10/12/16 10/13/16 10/13/16 10/13/16 07:00 15:00 23:00 07:00 15:00 23:00 Intake Total 540 ml 360 ml 1440 ml 240 ml Balance 540 ml 360 ml 1440 ml 240 ml Intake Oral 540 ml 360 ml 1440 ml 240 ml # Voids 7 3 4 Imaging Last Impressions Foot X-Ray 09/24/16 0000 Signed Impressions: Service Date/Time: Saturday, September 24, 2016 17:59 - CONCLUSION: 1. No acute fracture or malalignment identified. 2. Chronic deformity of the mid and hindfoot with degenerative change. 3. Diffuse osteopenia. Alexander Walter MD Ankle X-Ray 09/24/16 0000 Signed Impressions: Service Date/Time: Saturday, September 24, 2016 17:56 - CONCLUSION: No acute fracture or malalignment. Chronic changes. Alexander Walter MD ROS General: Other (unreliable historian ) Cardiac: Edema Physical Exam Physical Exam GENERAL: This is a well-nourished, well-developed patient, in no apparent distress. SKIN: No rashes, ecchymoses or lesions. Cool and dry. HEAD: Atraumatic. Normocephalic. No temporal or scalp tenderness. EYES: Pupils equal round and reactive. Extraocular motions intact. No scleral icterus. No injection or drainage. ENT: Nose without bleeding, purulent drainage or septal hematoma. Throat without erythema, tonsillar hypertrophy or exudate. Uvula midline. Airway patent. NECK: Trachea midline. No JVD or lymphadenopathy. Supple, nontender, no meningeal signs. CARDIOVASCULAR: Regular rate and rhythm without murmurs, gallops, or rubs. RESPIRATORY: Clear to auscultation. Breath sounds equal bilaterally. No wheezes , rales, or rhonchi. GASTROINTESTINAL: Abdomen soft, non-tender, nondistended. No hepato-splenomegaly , or palpable masses. No guarding. MUSCULOSKELETAL: Right ankle deformity, chronic, no other joint deformity. 2+ pitting edema, pedal pulses faint NEUROLOGICAL: Awake, oriented x 3. Mood elevated. No focal deficits. Urinary Catheter: No Vascular Central Line Catheter: No A/P Diagnosis: (1) Bipolar affective disorder, current episode manic with psychotic symptoms (2) Non-insulin dependent type 2 diabetes mellitus (3) HX LEFT LEG DVT (4) Anxiety (5) Hypertension (6) Onychomycosis (7) Lymphedema Assessment and Plan 66-year-old female with history of type 2 diabetes, left leg DVT, anxiety, hypertension, CVA. History of bipolar disorder, admitted with recurrent manic episode. -Continue with psychiatric care -Continue with present medication treatment Type 2 diabetes-low blood sugars at times -1800 ADA diet Continue with oral hypoglycemic-stop night time dose, blood glucose low in the morning. Dec. Glipizide morning dose to 5 mg po. Accu-Chek before meals and at bedtime with insulin therapy -HgbA1c 6.1 -Enc. PO intake -make sure she eats night time snack Hypertension, initially elevated now stable Continue with home medication Clonidine when necessary as needed for systolic rhythm 160 and diastolic rhythm 90 Onychomycosis -evaluated per podiatry -Nails 1 through 5 bilaterally were debrided. f/u as OP with podiatry for continued care. Leg edema with mild cellulitis -US negative for DVT -keep legs elevated -will order belgica hose bilat -continue with antibiotics Tachycardia noted -? may need BB, will d/w attending -EKG today D/W RN D/W Dr. Hoffman D/W pt. This patient was seen by myself and Dr. Hoffman, this note is written on her behalf. Problem Qualifiers (1) Hypertension: Qualified Code: I10 - Essential hypertension [place] [facility] Oct 13, 2016 16:55
[2016-10-13 19:46] VITALS: BP 125/69; PULSE 110; RESP 19; TEMP 98.3; O2SAT 98
[2016-10-13] MEDS: OLANZapine ODT 20 MG TAB PO SCH (20:30)
[2016-10-14 06:22] VITALS: BP 112/58; PULSE 82; TEMP 99.3
[2016-10-14] MEDS: DIVALPROEX SODIUM E.R. 500 MG TAB PO SCH ×2 (09:31→20:52)
[2016-10-14] MEDS: glipiZIDE 5 MG TAB PO SCH (09:31)
[2016-10-14] MEDS: THIOTHIXENE 10 MG CAP PO SCH ×2 (09:31→17:11)
[2016-10-14] MEDS: DOXYCYCLINE HYCLATE 100 MG CAP PO SCH ×2 (09:31→20:52)
[2016-10-14] MEDS: LEVOFLOXACIN 500 MG TAB PO SCH (09:31)
--- NOTE | 2016-10-14 13:38 | EKG ---
Date Performed: 10/13/2016 Time Performed: 17:58:47 PTAGE: 66 years EKG: SINUS TACHYCARDIA ANTEROSEPTAL MYOCARDIAL INFARCTION , OF INDETERMINATE AGE ABNORMAL ECG Co mpared to prior tracing no significant change PREVIOUS TRACING : 04/08/2015 17.22 DOCTOR: Inderjit Peterson Interpretating Date/Time 10/14/2016 13:36:17
--- NOTE | 2016-10-14 16:51 | HHI.PYPN ---
Subjective Remarks Patient seen in day room with nurse Javier, patient continues calm though mildly grandiose and confusing. Patient noted to show some poor oral hygiene their remnants of her food stuck in her gums and around her teeth. She is compliant with her medications. Much less intrusive. For now continue treatment Review of Systems Except as stated in HPI: all other systems reviewed are Neg Objective Alert: Yes [place]: Person, Place Mood: Calm Affect: Restricted Memory Intact: Comment (poor) Hallucinations: Auditory (appears to be responding to internal stimuli) Delusions: Yes Delusion Type: Paranoid Suicidal: Ideation (denies) Homicidal: Ideation (denies) Insight/Judgment Very poor Vitals/IOs Vital Signs Date Time Temp Pulse Resp B/P Pulse Ox O2 Delivery O2 Flow Rate FiO2 10/14/16 06:22 99.3 82 112/58 10/13/16 19:46 19 98 Intake and Output 10/13/16 10/13/16 10/14/16 08:00 16:00 00:00 Intake Total 240 ml Balance 240 ml Assessment & Plan Problem List: (1) Bipolar affective disorder, current episode manic with psychotic symptoms ICD Code: F31.2 Assessment & Plan Estimated LOS: days patient decrease in her mena and a grandiosity. Still somewhat confusing Justification for Cont. Inpt. At this time patient will decompensate if placed in a lower level of care Discharge Planning To be determined Tim Ca MD Oct 14, 2016 16:51
[2016-10-14 19:09] VITALS: BP 113/57; PULSE 97; RESP 18; TEMP 99; O2SAT 96
[2016-10-14] MEDS: OLANZapine ODT 20 MG TAB PO SCH (20:52)
[2016-10-15 06:09] VITALS: BP 90/54; PULSE 100; RESP 20; TEMP 98.9; O2SAT 91
[2016-10-15] MEDS: DIVALPROEX SODIUM E.R. 500 MG TAB PO SCH ×2 (09:24→22:45)
[2016-10-15] MEDS: THIOTHIXENE 10 MG CAP PO SCH ×2 (09:24→16:54)
[2016-10-15] MEDS: glipiZIDE 5 MG TAB PO SCH (09:24)
--- NOTE | 2016-10-15 09:53 | HHI.PR ---
Subjective Remarks up in chair, encouraged to elevate legs alert, conversational No acute pain No SOB afebrile Tachycardia mild (Renetta Potts) Objective Objective Results - Vital Signs Date Time Temp Pulse Resp B/P Pulse Ox O2 Delivery O2 Flow Rate FiO2 10/15/16 06:09 98.9 100 20 90/54 91 10/14/16 19:09 99.0 97 18 113/57 96 I/O 10/14/16 10/14/16 10/14/16 10/15/16 10/15/16 10/15/16 07:00 15:00 23:00 07:00 15:00 23:00 Intake Total 720 ml 480 ml 600 ml Balance 720 ml 480 ml 600 ml Intake Oral 480 ml 480 ml 600 ml Other 240 ml # Voids 2 1 1 4 (Renetta Potts) ROS General: Other (10 point ROS done, positives include mild cellulitis left lower leg, tachycardia, decreased by mouth intake, other systems negative or unremarkable) Cardiac: Other (tachycardia mild) Neuro/MS: Other (cellulitis left lower leg, mild erythema, improved) Skin: Itching (occasional) (Renetta Potts) Physical Exam Physical Exam PHYSICAL EXAMINATION GENERAL: This is a well-developed, well-nourished female who appears to be in no acute distress. She is alert and awake, HEAD: Normocephalic without any lesion or mass noted. OROPHARYNGEAL: Oropharynx without erythema or edema. NECK: Supple. No nuchal rigidity or lymphadenopathy. Trachea midline without deviation. CARDIAC: Regular rhythm greater than 100, regular rate, S1 and S2 are heard. LUNGS: Clear to auscultation bilaterally. ABDOMEN: Soft, nontender, no organomegaly or masses. Bowel sounds are heard in all four quadrants. EXTREMITIES: Mild, trace left lower extremity edema. Pulses palpable, mild cellulitis improved NEUROLOGICAL: Patient mood and affect appropriate. No focal deficit SKIN:Warm and moist, skin dry Objective Remarks I'm just not very thirsty or hungry today (Renetta Potts) A/P Assessment and Plan Lt. leg cellulitis, non infection. DVT Elevate as much as possible. Lotion for any itching vital signs reviewed, stable , monitor for any abnormals Labs reviewed , stable- Type 2 diabetes-low blood sugars at times -1800 ADA diet Continue with oral hypoglycemic-stop night time dose, blood glucose low in the morning. Dec. Glipizide morning dose to 5 mg po. Accu-Chek before meals and at bedtime with insulin therapy -Enc. PO intake, staff and patient state not eating or drinking enough her past few days Patient has mild tachycardia, will need low-dose beta zeke, gentle hydration will need to be given if BP low. Spoke to staff for increased PO intake needed today. BP recheck , manual, 105/systolic Hypertension, stable Onychomycosis -evaluated per podiatry -Nails 1 through 5 bilaterally were debrided. f/u as OP with podiatry for continued care. Leg edema with mild cellulitis -US negative for DVT -keep legs elevated, constant reminder -will order belgica hose bilat -continue with antibiotics Tachycardia noted If continues ,we'll order low-dose zeke, but will need to increase systolic pressure first BP systolic in the 90s, gentle hydration with fluids today DM, 2 -1800 ADA diet Accu-Chek before meals and at bedtime with insulin therapy Hypertension,stable medical mangement D/W nurse D/W Dr. Hoffman, seen on her behalf (Renetta Potts) Assessment and Plan patient seen and examined agree with above assessment andplan monitor heart rate after fluid bolus monitor LLE off antibiotics discussed with patient discussed with Renetta LOPEZ (Ashlee Hoffman MD) Renetta Potts Oct 15, 2016 09:53 Ashlee Hoffman MD Oct 15, 2016 12:11
[2016-10-15] MEDS ORDERED: SODIUM CHLORID 0.9% 500 ML INJ 500 ML IV ONE (10:00)
--- NOTE | 2016-10-15 12:10 | HHI.PYPN ---
Subjective Remarks Patient was seen and case discussed with nursing. Patient is pleasant and cooperative with exam. Alert and oriented 2. Remains grossly confused and disheveled. Vital signs of and low medicine is following her. At this time they encourage fluids. Patient was seen drinking her fluids. Scrubs her mood is "getting better." Continues to ask about ECT. Some paranoia evident. Denies suicidal ideation intent or plan Objective Alert: Yes [place]: Person, Place Mood: Other (getting better) Affect: Restricted Memory Intact: Comment (poor) Hallucinations: Auditory (denies), Other (internal stimuli) Delusions: Yes Delusion Type: Paranoid Suicidal: Ideation (denies) Homicidal: Ideation (denies) Insight/Judgment Poor Vitals/IOs Vital Signs Date Time Temp Pulse Resp B/P Pulse Ox O2 Delivery O2 Flow Rate FiO2 10/15/16 06:09 98.9 100 20 90/54 91 Intake and Output 10/14/16 10/14/16 10/15/16 08:00 16:00 00:00 Intake Total 720 ml 480 ml 600 ml Balance 720 ml 480 ml 600 ml Assessment & Plan Problem List: (1) Bipolar affective disorder, current episode manic with psychotic symptoms ICD Code: F31.2 Assessment & Plan Vitals every 6 hours, encourage fluids Justification for Cont. Inpt. Patient will decompensate in a less restrictive setting Cody Chaidez DO Oct 15, 2016 12:10
[2016-10-15 14:09] VITALS: BP 99/55; PULSE 88; RESP 18; TEMP 98.4
[2016-10-15 18:00] VITALS: BP 119/60; PULSE 97; TEMP 99.1; O2SAT 95
[2016-10-15] MEDS: OLANZapine ODT 20 MG TAB PO SCH (21:00)
[2016-10-16 06:21] VITALS: BP 124/67; PULSE 100; RESP 18; TEMP 98.6; O2SAT 94
[2016-10-16] MEDS: THIOTHIXENE 10 MG CAP PO SCH ×2 (08:00→17:02)
[2016-10-16] MEDS: glipiZIDE 5 MG TAB PO SCH (08:00)
[2016-10-16] MEDS: DIVALPROEX SODIUM E.R. 500 MG TAB PO SCH ×2 (09:54→21:19)
--- NOTE | 2016-10-16 14:59 | HHI.PYPN ---
Subjective Remarks Patient was seen and case discussed with nursing. Patient is compliant with medications. Patient remains grossly disorganized. Behaving well on the unit. Denies suicidal ideation intent or plan Objective Alert: Yes [place]: Person, Place Mood: Calm Affect: Blunted Memory Intact: Comment (poor) Hallucinations: Auditory (denies), Other (internal stimuli) Delusions: Yes Delusion Type: Paranoid Suicidal: Ideation (denies) Homicidal: Ideation (denies) Insight/Judgment Poor Vitals/IOs Vital Signs Date Time Temp Pulse Resp B/P Pulse Ox O2 Delivery O2 Flow Rate FiO2 10/16/16 06:21 98.6 100 18 124/67 94 Intake and Output 10/15/16 10/15/16 10/16/16 08:00 16:00 00:00 Intake Total 1200 ml 720 ml Balance 1200 ml 720 ml Assessment & Plan Problem List: (1) Bipolar affective disorder, current episode manic with psychotic symptoms ICD Code: F31.2 Assessment & Plan Continue current treatment plan Justification for Cont. Inpt. Patient will decompensate in a less restrictive setting Cody Chaidez DO Oct 16, 2016 14:59
[2016-10-16 20:31] VITALS: BP 109/56; PULSE 101; RESP 17; TEMP 97.6; O2SAT 99
[2016-10-16] MEDS: OLANZapine ODT 20 MG TAB PO SCH (21:19)
[2016-10-17 06:32] VITALS: BP 104/56; PULSE 113; RESP 16; TEMP 98.6; O2SAT 94
[2016-10-17] MEDS: glipiZIDE 5 MG TAB PO SCH (08:56)
[2016-10-17] MEDS: DIVALPROEX SODIUM E.R. 500 MG TAB PO SCH ×2 (08:56→20:30)
[2016-10-17] MEDS: THIOTHIXENE 10 MG CAP PO SCH ×2 (08:57→16:00)
--- NOTE | 2016-10-17 13:46 | HHI.PYPN ---
Subjective Remarks Patient discussed with treatment team, chart reviewed, patient seen on unit. Patient continues calm with marked decreased range intensity of her affect. Less intrusive. She continues to have peripheral edema also. She does denies suicidality homicidality at this time. Treatment team discussed patient's medical stability with her peripheral edema whether this might necessitate recommendation from the medical service about placement issues and SNF perhaps or 4 E. perhaps or medical floor if patient is psychiatrically cleared will have hospitalist give us their suggestions Review of Systems Except as stated in HPI: all other systems reviewed are Neg Objective Alert: Yes [place]: Person, Place Mood: Calm Affect: Blunted Memory Intact: Comment (poor) Hallucinations: Auditory (denies), Other (internal stimuli) Delusions: Yes Delusion Type: Paranoid Suicidal: Ideation (denies) Homicidal: Ideation (denies) Insight/Judgment Poor Vitals/IOs Vital Signs Date Time Temp Pulse Resp B/P Pulse Ox O2 Delivery O2 Flow Rate FiO2 10/17/16 06:32 98.6 113 16 104/56 94 Intake and Output 10/16/16 10/16/16 10/17/16 08:00 16:00 00:00 Intake Total 0 ml 960 ml 720 ml Balance 0 ml 960 ml 720 ml Assessment & Plan Problem List: (1) Bipolar affective disorder, current episode manic with psychotic symptoms ICD Code: F31.2 Assessment & Plan Estimated LOS: days patient's mena is resolving that appears to be still some mild grandiosity. There is concern about her medical status at this time we will begin hospitalist recommendations. Justification for Cont. Inpt. At this time patient would decompensate if placed in a lower level of care Discharge Planning To be determined Tim Ca MD Oct 17, 2016 13:46
[2016-10-17 19:00] VITALS: BP 116/67; PULSE 97; RESP 18; TEMP 97.3
[2016-10-17] MEDS: OLANZapine ODT 20 MG TAB PO SCH (20:31)
[2016-10-18 06:00] VITALS: BP 92/53; PULSE 100; RESP 16; TEMP 99.2; O2SAT 94
[2016-10-18] MEDS: DIVALPROEX SODIUM E.R. 500 MG TAB PO SCH ×2 (08:37→22:01)
[2016-10-18] MEDS: glipiZIDE 5 MG TAB PO SCH (08:37)
[2016-10-18] MEDS: THIOTHIXENE 10 MG CAP PO SCH ×2 (08:39→17:26)
--- NOTE | 2016-10-18 14:14 | HHI.PYPN ---
Subjective Remarks Patient seen in day room with nurse Javier, patient continues somewhat intense and silly at times it appears she is retaining food in her mouth. That appear she has no significant difficulty with swallowing. Compliant medications. For now continue treatment Review of Systems Except as stated in HPI: all other systems reviewed are Neg Objective Alert: Yes [place]: Person, Place Mood: Calm Affect: Blunted Memory Intact: Comment (poor) Hallucinations: Auditory (denies), Other (internal stimuli) Delusions: Yes Delusion Type: Paranoid Suicidal: Ideation (denies) Homicidal: Ideation (denies) Insight/Judgment Poor Vitals/IOs Vital Signs Date Time Temp Pulse Resp B/P Pulse Ox O2 Delivery O2 Flow Rate FiO2 10/18/16 06:00 99.2 100 16 92/53 94 Intake and Output 10/17/16 10/17/16 10/18/16 08:00 16:00 00:00 Intake Total 240 ml 1080 ml Balance 240 ml 1080 ml Assessment & Plan Problem List: (1) Bipolar affective disorder, current episode manic with psychotic symptoms ICD Code: F31.2 Assessment & Plan Estimated LOS: days patient remains somewhat intense perhaps hypomanic, and silly. Compliant medications Justification for Cont. Inpt. At this time patient will decompensate if place to the lower level of care Discharge Planning To be determined Tim Ca MD Oct 18, 2016 14:14
--- NOTE | 2016-10-18 16:31 | HHI.PR ---
Subjective Remarks up in chair in day rm, elevate legs alert, conversational No acute pain No SOB afebrile Objective Objective Results - Vital Signs Date Time Temp Pulse Resp B/P Pulse Ox O2 Delivery O2 Flow Rate FiO2 10/18/16 06:00 99.2 100 16 92/53 94 10/17/16 19:00 97.3 97 18 116/67 I/O 10/17/16 10/17/16 10/17/16 10/18/16 10/18/16 10/18/16 07:00 15:00 23:00 07:00 15:00 23:00 Intake Total 960 ml 1080 ml 480 ml Balance 960 ml 1080 ml 480 ml Intake Oral 960 ml 480 ml Oral Supplement 1080 ml # Voids 4 3 3 ROS General: Other Cardiac: Edema (LE) GI: Diarrhea Physical Exam Physical Exam PHYSICAL EXAMINATION GENERAL: This is a well-developed, well-nourished female who appears to be in no acute distress. She is alert and awake, []. HEAD: Normocephalic without any lesion or mass noted. Facial features appear symmetric. OROPHARYNGEAL: Oropharynx without erythema or edema. NECK: Supple. No nuchal rigidity or lymphadenopathy. Trachea midline without deviation. CARDIAC: Regular rhythm, regular rate, S1 and S2 are heard. Murmur []; no gallops or rubs. LUNGS: Clear to auscultation bilaterally. [] wheeze, [] rhonchi or [] rale. No use of accessory muscles on inspiration or expiration. ABDOMEN: Soft, nontender, no organomegaly or masses. Bowel sounds are heard in all four quadrants. No rebound. No guarding. EXTREMITIES: [] edema. Pulses equal bilateral. [] cyanosis. NEUROLOGICAL: Patient mood and affect appropriate. No focal deficit SKIN:Warm and moist A/P Assessment and Plan Lt. leg cellulitis, non infection. DVT, healed, no erythema noted, okay for her to wear diabetic socks Elevate as much as possible. Lotion for any itching vital signs reviewed, stable , monitor for any abnormals, temp noted, 99.2 Labs reviewed , stable- Type 2 diabetes-low blood sugars at times -1800 ADA diet Continue with oral hypoglycemic- Accu-Chek before meals and at bedtime with insulin therapy -Enc. PO intake, continue to encourage by mouth fluids and food Patient has mild tachycardia, will need low-dose beta zeke, gentle hydration will need to be given if BP low. BP recheck , manual, 105/systolic Hypertension, stable Onychomycosis -evaluated per podiatry -Nails 1 through 5 bilaterally were debrided. f/u as OP with podiatry for continued care. Discussed with patient discussed with nurse, discussed with Dr. miner, seen on her behalf Renetta Potts Oct 18, 2016 16:31
[2016-10-18 19:00] VITALS: BP 132/64; PULSE 109; RESP 16
[2016-10-18] MEDS: OLANZapine ODT 20 MG TAB PO SCH (22:01)
[2016-10-19 05:26] VITALS: BP 90/46; PULSE 108; RESP 20; TEMP 97.5
[2016-10-19] MEDS: THIOTHIXENE 10 MG CAP PO SCH ×2 (08:00→16:00)
[2016-10-19] MEDS: glipiZIDE 5 MG TAB PO SCH (10:10)
[2016-10-19] MEDS: DIVALPROEX SODIUM E.R. 500 MG TAB PO SCH ×2 (10:10→21:00)
--- NOTE | 2016-10-19 14:30 | HHI.PYPN ---
Subjective Remarks Patient discussed with treatment team, chart reviewed, patient seen on unit. Patient continues silly somewhat focusing on her daughter. Patient continues with poor hygiene at times seems to have remnants of food stuck in her teeth. Patient compliant medications. No other behavioral problems. Review of Systems Except as stated in HPI: all other systems reviewed are Neg Objective Alert: Yes [place]: Person, Place Mood: Calm Affect: Blunted Memory Intact: Comment (poor) Hallucinations: Auditory (denies), Other (internal stimuli) Delusions: Yes Delusion Type: Paranoid Suicidal: Ideation (denies) Homicidal: Ideation (denies) Insight/Judgment Poor Vitals/IOs Vital Signs Date Time Temp Pulse Resp B/P Pulse Ox O2 Delivery O2 Flow Rate FiO2 10/19/16 05:26 97.5 108 20 90/46 10/18/16 06:00 94 Intake and Output 10/18/16 10/18/16 10/19/16 08:00 16:00 00:00 Intake Total 480 ml 600 ml Balance 480 ml 600 ml Assessment & Plan Problem List: (1) Bipolar affective disorder, current episode manic with psychotic symptoms ICD Code: F31.2 Assessment & Plan Estimated LOS: days patient continues somewhat disorganized perhaps consistent some mild hypomania. For now continue treatment Justification for Cont. Inpt. At this time patient will decompensate if placed in a lower level of care Discharge Planning To be determined Tim Ca MD Oct 19, 2016 14:30
[2016-10-19 18:00] VITALS: BP 119/70; PULSE 100; RESP 18; TEMP 97.6; O2SAT 98
[2016-10-19] MEDS: OLANZapine ODT 20 MG TAB PO SCH (21:00)
[2016-10-20 06:00] VITALS: BP 113/65; PULSE 114; RESP 18; TEMP 97.1
[2016-10-20] MEDS: THIOTHIXENE 10 MG CAP PO SCH ×2 (08:00→17:24)
[2016-10-20 08:30] VITALS: BP 96/55; PULSE 99; RESP 16; O2SAT 94
[2016-10-20] MEDS: DIVALPROEX SODIUM E.R. 500 MG TAB PO SCH ×2 (08:39→21:23)
[2016-10-20] MEDS: glipiZIDE 5 MG TAB PO SCH (08:39)
--- NOTE | 2016-10-20 11:34 | HHI.PYPN ---
Subjective Remarks Patient seen in day room with nurse Santiago, sitting in [place] chair, chart reviewed. Patient somewhat sedated but responsive continues oriented to person place situation and date, knowing that this weekend his Easter. Patient still somewhat disorganized. But her affect is somewhat softer. For now continue treatment will check Depakote level over tomorrow Review of Systems Except as stated in HPI: all other systems reviewed are Neg Objective Alert: Yes [place]: Person, Place Mood: Calm Affect: Blunted Memory Intact: Comment (poor) Hallucinations: Auditory (denies), Other (internal stimuli) Delusions: Yes Delusion Type: Paranoid Suicidal: Ideation (denies) Homicidal: Ideation (denies) Insight/Judgment Very poor Vitals/IOs Vital Signs Date Time Temp Pulse Resp B/P Pulse Ox O2 Delivery O2 Flow Rate FiO2 10/20/16 08:30 99 16 96/55 94 10/20/16 06:00 97.1 Intake and Output 10/19/16 10/19/16 10/20/16 08:00 16:00 00:00 Intake Total 240 ml 120 ml 840 ml Balance 240 ml 120 ml 840 ml Assessment & Plan Problem List: (1) Bipolar affective disorder, current episode manic with psychotic symptoms ICD Code: F31.2 Assessment & Plan Estimated LOS: days patient continues intense, now the mena has slowed down, there is still some mild grandiosity. Justification for Cont. Inpt. At this time patient will decompensate if placed in a lower level of care Discharge Planning To be determined Tim Ca MD Oct 20, 2016 11:34
[2016-10-20 19:19] VITALS: BP 101/56; PULSE 97; RESP 16; TEMP 96.4
[2016-10-20] MEDS: OLANZapine ODT 20 MG TAB PO SCH (21:00)
[2016-10-21 06:09] VITALS: BP 103/57; PULSE 99; RESP 16; TEMP 97.7; O2SAT 97
[2016-10-21] MEDS: glipiZIDE 5 MG TAB PO SCH (08:38)
[2016-10-21] MEDS: THIOTHIXENE 10 MG CAP PO SCH ×2 (08:42→17:03)
[2016-10-21] MEDS: DIVALPROEX SODIUM E.R. 500 MG TAB PO SCH ×2 (09:00→21:45)
--- NOTE | 2016-10-21 09:25 | HHI.PYPN ---
Subjective Remarks Patient continues to show some evidence of mood lability and impulsive behavior. However it does appear that she is responding to medication therapies. We will continue to evaluate and observe. Review of Systems ROS Limitations: Clinical Condition Objective Alert: Yes [place]: Person, Place Mood: Calm Affect: Blunted Memory Intact: Comment (poor) Hallucinations: Auditory (denies), Other (internal stimuli) Delusions: Yes Delusion Type: Paranoid Suicidal: Ideation (denies) Homicidal: Ideation (denies) Insight/Judgment Impaired but improving. Vitals/IOs Vital Signs Date Time Temp Pulse Resp B/P Pulse Ox O2 Delivery O2 Flow Rate FiO2 10/21/16 06:09 97.7 99 16 103/57 97 Intake and Output 10/20/16 10/20/16 10/21/16 08:00 16:00 00:00 Intake Total 240 ml 660 ml Balance 240 ml 660 ml Assessment & Plan Problem List: (1) Bipolar affective disorder, current episode manic with psychotic symptoms ICD Code: F31.2 Assessment & Plan Estimated LOS: 7 days continue to monitor Depakote and Depakote levels and their affect on patient's mood lability. Justification for Cont. Inpt. Unable to care for self. Juaquin Poe MD Oct 21, 2016 09:25
[2016-10-21] MEDS: LORazepam 0.5 MG TAB age > 65 yrs PO PRN (12:46)
[2016-10-21 18:00] VITALS: BP 127/67; PULSE 97; RESP 18; TEMP 98.3; O2SAT 97
[2016-10-21] MEDS: OLANZapine ODT 20 MG TAB PO SCH (21:00)
[2016-10-22] MEDS: glipiZIDE 5 MG TAB PO SCH (09:42)
[2016-10-22] MEDS: DIVALPROEX SODIUM E.R. 500 MG TAB PO SCH ×2 (09:42→22:22)
[2016-10-22] MEDS: THIOTHIXENE 10 MG CAP PO SCH ×2 (09:47→16:21)
--- NOTE | 2016-10-22 17:57 | HHI.PYPN ---
Subjective Remarks Pt seen and discussed with staff. Pt has been compliant and cooperative with care. She remains paranoid and makes several bizarre statements during interview. No SI/HI. Objective Alert: Yes [place]: Person, Place Mood: Calm Affect: Blunted Memory Intact: Comment (poor) Hallucinations: Auditory (denies), Other (internal stimuli) Delusions: Yes Delusion Type: Paranoid Suicidal: Ideation (denies) Homicidal: Ideation (denies) Insight/Judgment poor Vitals/IOs Vital Signs Date Time Temp Pulse Resp B/P Pulse Ox O2 Delivery O2 Flow Rate FiO2 10/21/16 18:00 98.3 97 18 127/67 97 Intake and Output 10/21/16 10/21/16 10/22/16 08:00 16:00 00:00 Intake Total 0 ml 1200 ml 1200 ml Balance 0 ml 1200 ml 1200 ml Assessment & Plan Problem List: (1) Bipolar affective disorder, current episode manic with psychotic symptoms ICD Code: F31.2 Assessment & Plan Continue current tx plan. Estimated LOS: days Justification for Cont. Inpt. risk of decompensation Betsy Bacon MD Oct 22, 2016 17:57
[2016-10-22 20:00] VITALS: BP 132/69; PULSE 97; TEMP 97.6; O2SAT 98
[2016-10-22] MEDS: OLANZapine ODT 20 MG TAB PO SCH (21:00)
[2016-10-22] MEDS: diphenhydrAMINE HCL 25 MG CAP PO PRN (22:22)
[2016-10-23 05:30] VITALS: BP 119/64; PULSE 101; RESP 18; TEMP 97.4
[2016-10-23] MEDS: THIOTHIXENE 10 MG CAP PO SCH ×2 (08:00→17:01)
[2016-10-23] MEDS: DIVALPROEX SODIUM E.R. 500 MG TAB PO SCH ×2 (09:27→21:54)
[2016-10-23] MEDS: glipiZIDE 5 MG TAB PO SCH (09:28)
[2016-10-23 18:00] VITALS: BP 120/89; PULSE 89; RESP 16; TEMP 97.9; O2SAT 99
--- NOTE | 2016-10-23 19:49 | HHI.PYPN ---
Subjective Remarks Pt seen and discussed with staff. She has been cooperative with care. She continues to engage in bizarre behavior and fixate on delusional content. No SI/ HI. Objective Alert: Yes [place]: Person, Place Mood: Calm Affect: Blunted Memory Intact: Comment (poor) Hallucinations: Auditory (denies), Other (internal stimuli) Delusions: Yes Delusion Type: Paranoid Suicidal: Ideation (denies) Homicidal: Ideation (denies) Insight/Judgment poor Vitals/IOs Vital Signs Date Time Temp Pulse Resp B/P Pulse Ox O2 Delivery O2 Flow Rate FiO2 10/23/16 18:00 97.9 89 16 120/89 99 Intake and Output 10/22/16 10/22/16 10/23/16 08:00 16:00 00:00 Intake Total 480 ml 120 ml 1200 ml Balance 480 ml 120 ml 1200 ml Assessment & Plan Problem List: (1) Bipolar affective disorder, current episode manic with psychotic symptoms ICD Code: F31.2 Assessment & Plan Continue current tx plan.Estimated LOS: days 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
[2016-10-23] MEDS: OLANZapine ODT 20 MG TAB PO SCH (21:00)
[2016-10-24 05:30] VITALS: BP 97/53; PULSE 113; RESP 18; TEMP 98.1
[2016-10-24] MEDS: THIOTHIXENE 10 MG CAP PO SCH ×2 (08:00→16:56)
[2016-10-24] MEDS: glipiZIDE 5 MG TAB PO SCH (08:42)
[2016-10-24] MEDS: DIVALPROEX SODIUM E.R. 500 MG TAB PO SCH ×2 (08:42→20:20)
[2016-10-24] MEDS: CHOLECALCIFEROL (VIT D3) 1000 UNIT TAB PO SCH (12:00)
--- NOTE | 2016-10-24 16:32 | HHI.PYPN ---
Subjective Remarks Patient discussed with treatment team, patient seen on unit with loss of, chart reviewed. Patient is to be somewhat bizarre with her behaviors focusing on her delusional ideation related to her family. Compliant medications. But she did recognize me today and is aware that it was Easter yesterday Review of Systems Except as stated in HPI: all other systems reviewed are Neg Objective Alert: Yes [place]: Person, Place Mood: Calm Affect: Blunted Memory Intact: Comment (poor) Hallucinations: Auditory (denies), Other (internal stimuli) Delusions: Yes Delusion Type: Paranoid Suicidal: Ideation (denies) Homicidal: Ideation (denies) Insight/Judgment Very poor Vitals/IOs Vital Signs Date Time Temp Pulse Resp B/P Pulse Ox O2 Delivery O2 Flow Rate FiO2 10/24/16 05:30 98.1 113 18 97/53 10/23/16 18:00 99 Intake and Output 10/23/16 10/23/16 10/24/16 08:00 16:00 00:00 Intake Total 720 ml 840 ml Balance 720 ml 840 ml Assessment & Plan Problem List: (1) Bipolar affective disorder, current episode manic with psychotic symptoms ICD Code: F31.2 Assessment & Plan Estimated LOS: days patient continues psychotic though is a decreased range intensity of her affect mood is also somewhat decreased Justification for Cont. Inpt. At this time patient will decompensate if placed in a lower level of care Discharge Planning To be determined Tim Ca MD Oct 24, 2016 16:32
--- NOTE | 2016-10-24 16:45 | HHI.PR ---
Subjective Interval History Sleeping very deeply, arousable but with some difficulty, no complaints at this time, refused an ultrasound that was initially ordered for left upper extremity edema, she told the nurse earlier" I want to kill you" Review of Systems Constitutional Constitutional Remarks Difficult to obtain Vitals/Results Intake & Output 10/23/16 10/23/16 10/24/16 15:00 23:00 07:00 Intake Total 720 ml 840 ml 0 ml Balance 720 ml 840 ml 0 ml Intake Oral 720 ml 840 ml 0 ml # Voids 2 2 2 # Bowel Movements 1 0 0 Vital Signs Vital Signs Date Time Temp Pulse Resp B/P Pulse Ox O2 Delivery O2 Flow Rate FiO2 10/24/16 05:30 98.1 113 18 97/53 10/23/16 18:00 97.9 89 16 120/89 99 Physical Exam General General Appearance: Well Developed, Sleeping Ears & Nose Ears & Nose Exam: Nasal Mucosa [place] Throat Throat Exam: Oral Mucosa [place] & Moist Neck Neck Exam: Trachea Midline Pulmonary Resp Exam: Breath Sounds Equal Cardiology CV Exam: Normal Sinus Rhythm, Good Perfusion Gastrointestinal/Abdomen GI Exam: Bowel Sounds Present Integumentary Skin Exam: Warm Neurologic Neuro Exam: Combative Assessment/Plan Assessment/Plan Plan A/P Assessment and Plan Bipolar affective disorder, current episode manic with psychotic symptoms Tachycardic at times Non-insulin dependent type 2 diabetes mellitus HX LEFT LEG DVT Anxiety Hypertension Cellulitis LLE Plan Continue current treatment Antipsychotic the psychiatrist Ultrasound of the patient agrees Blood sugar control Rate control Discussed with nurse We will follow intermittently Madelyn Short MD Oct 24, 2016 16:45
--- NOTE | 2016-10-24 16:52 | HHI.PR ---
Subjective Interval History Sitting on a chair in the day room, alert, verbal, incoherent, takes only liquids, drinks juice and milk but does not eat, denies specific complaints, Review of Systems Constitutional Constitutional Remarks 10 systems reviewed and otherwise negative but not reliable Vitals/Results Intake & Output 10/23/16 10/23/16 10/24/16 15:00 23:00 07:00 Intake Total 720 ml 840 ml 0 ml Balance 720 ml 840 ml 0 ml Intake Oral 720 ml 840 ml 0 ml # Voids 2 2 2 # Bowel Movements 1 0 0 Vital Signs Vital Signs Date Time Temp Pulse Resp B/P Pulse Ox O2 Delivery O2 Flow Rate FiO2 10/24/16 05:30 98.1 113 18 97/53 10/23/16 18:00 97.9 89 16 120/89 99 Physical Exam General General Appearance: Well Developed, Comfortable Ears & Nose Ears & Nose Exam: Nasal Mucosa [place] Throat Throat Exam: Oral Mucosa [place] & Moist Neck Neck Exam: Trachea Midline Pulmonary Resp Exam: Breath Sounds Equal Cardiology CV Exam: Normal Sinus Rhythm, Good Perfusion Gastrointestinal/Abdomen GI Exam: Bowel Sounds Present Integumentary Skin Exam: Warm Skin Remarks Edema in both lower extremities, cellulitis appears to have improved Neurologic Neuro Exam: Awake, Speech Clear, Moving All Extremities, Combative Psychiatric Psych Exam: Appropriate Responses Assessment/Plan Assessment/Plan Plan A/P Assessment and Plan Vitamin D deficiency Bipolar affective disorder, current episode manic with psychotic symptoms Tachycardic at times Non-insulin dependent type 2 diabetes mellitus HX LEFT LEG DVT Anxiety Hypertension Cellulitis LLE Plan Continue current treatment Antipsychotic the psychiatrist Replace vitamin D Diurese Blood sugar control Rate control Discussed with nurse We will follow intermittently Madelyn Short MD Oct 24, 2016 16:52
[2016-10-24 18:00] VITALS: BP 113/66; PULSE 94; RESP 18; TEMP 98.4; O2SAT 97
[2016-10-24] MEDS: METOPROLOL TARTRATE 25 MG TAB PO SCH (20:20)
[2016-10-24] MEDS: OLANZapine ODT 20 MG TAB PO SCH (20:21)
[2016-10-25 01:00] VITALS: BP 108/55; PULSE 104; RESP 20; TEMP 98.6; O2SAT 99
[2016-10-25 05:29] VITALS: BP 128/72; PULSE 100; RESP 16; TEMP 97.9; O2SAT 95
[2016-10-25] MEDS: DIVALPROEX SODIUM E.R. 500 MG TAB PO SCH ×2 (08:32→20:35)
[2016-10-25] MEDS: FUROSEMIDE 20 MG TAB PO SCH (08:33)
[2016-10-25] MEDS: CHOLECALCIFEROL (VIT D3) 1000 UNIT TAB PO SCH (08:33)
[2016-10-25] MEDS: METOPROLOL TARTRATE 25 MG TAB PO SCH ×2 (08:33→20:36)
[2016-10-25] MEDS: THIOTHIXENE 10 MG CAP PO SCH ×2 (08:33→16:33)
[2016-10-25] MEDS: glipiZIDE 5 MG TAB PO SCH (08:33)
[2016-10-25 14:00] VITALS: BP 106/56; PULSE 73; RESP 18; TEMP 91; O2SAT 96
--- NOTE | 2016-10-25 14:23 | HHI.PYPN ---
Subjective Remarks Patient seen in the day room with floor staff, patient somewhat quiet their intensity of her mood and affect have quieted down. This is a grandiosity and mild disorganization with her. She is compliant with medications. For now continue treatment Review of Systems Except as stated in HPI: all other systems reviewed are Neg Objective Alert: Yes [place]: Person, Place Mood: Calm Affect: Blunted Memory Intact: Comment (poor) Hallucinations: Auditory (denies), Other (internal stimuli) Delusions: Yes Delusion Type: Paranoid Suicidal: Ideation (denies) Homicidal: Ideation (denies) Insight/Judgment Very poor Vitals/IOs Vital Signs Date Time Temp Pulse Resp B/P Pulse Ox O2 Delivery O2 Flow Rate FiO2 10/25/16 14:00 91.0 73 18 106/56 96 Intake and Output 10/24/16 10/24/16 10/25/16 08:00 16:00 00:00 Intake Total 0 ml 840 ml 990 ml Balance 0 ml 840 ml 990 ml Assessment & Plan Problem List: (1) Bipolar affective disorder, current episode manic with psychotic symptoms ICD Code: F31.2 Assessment & Plan Estimated LOS: days patient remains vigilant though with a marked decrease in affect and removed. Compliant medications. For now continue treatment Justification for Cont. Inpt. At this time patient will decompensate if placed in a lower level of care Discharge Planning To be determined Tim Ca MD Oct 25, 2016 14:23
[2016-10-25 18:00] VITALS: BP 113/59; PULSE 83; RESP 18; TEMP 96.1; O2SAT 98
--- NOTE | 2016-10-25 18:18 | HHI.PR ---
Subjective Interval History Alert, smiling, appears to deny complaints Review of Systems Constitutional Constitutional Remarks 10 systems reviewed and otherwise negative but not reliable Vitals/Results Intake & Output 10/24/16 10/24/16 10/25/16 15:00 23:00 07:00 Intake Total 840 ml 990 ml Balance 840 ml 990 ml Intake Oral 840 ml 990 ml # Voids 3 3 3 # Bowel Movements 1 Vital Signs Vital Signs Date Time Temp Pulse Resp B/P Pulse Ox O2 Delivery O2 Flow Rate FiO2 10/25/16 18:00 96.1 83 18 113/59 98 10/25/16 14:00 91.0 73 18 106/56 96 10/25/16 05:29 97.9 100 16 128/72 95 10/25/16 01:00 98.6 104 20 108/55 99 Physical Exam General General Appearance: Well Developed, Comfortable Ears & Nose Ears & Nose Exam: Nasal Mucosa [place] Throat Throat Exam: Oral Mucosa [place] & Moist Neck Neck Exam: Trachea Midline Pulmonary Resp Exam: Breath Sounds Equal Cardiology CV Exam: Normal Sinus Rhythm, Good Perfusion Gastrointestinal/Abdomen GI Exam: Bowel Sounds Present Integumentary Skin Exam: Warm Skin Remarks Edema in both lower extremities, cellulitis appears to have improved Neurologic Neuro Exam: Awake, Speech Clear, Moving All Extremities, Combative Psychiatric Psych Exam: Appropriate Responses Assessment/Plan Assessment/Plan Plan A/P Assessment and Plan Vitamin D deficiency Bipolar affective disorder, current episode manic with psychotic symptoms Tachycardic at times Non-insulin dependent type 2 diabetes mellitus HX LEFT LEG DVT Anxiety Hypertension Cellulitis LLE, resolved Plan Continue current treatment Antipsychotic the psychiatrist Replace vitamin D Diurese Blood sugar control Rate control We will follow intermittently Madelyn Short MD Oct 25, 2016 18:18
[2016-10-25] MEDS: OLANZapine ODT 20 MG TAB PO SCH (20:36)
[2016-10-26 05:10] VITALS: BP 101/54; PULSE 100; RESP 16; TEMP 98.4; O2SAT 96
[2016-10-26] MEDS: THIOTHIXENE 10 MG CAP PO SCH ×2 (08:00→16:00)
[2016-10-26] MEDS: glipiZIDE 5 MG TAB PO SCH (08:00)
[2016-10-26] MEDS: FUROSEMIDE 20 MG TAB PO SCH (08:43)
[2016-10-26] MEDS: METOPROLOL TARTRATE 25 MG TAB PO SCH ×2 (08:43→20:54)
[2016-10-26] MEDS: CHOLECALCIFEROL (VIT D3) 1000 UNIT TAB PO SCH (08:43)
[2016-10-26] MEDS: DIVALPROEX SODIUM E.R. 500 MG TAB PO SCH ×2 (08:43→20:54)
--- NOTE | 2016-10-26 13:10 | HHI.PYPN ---
Subjective Remarks Patient seen in dayroom with floor staff, chart review, patient compliant medications. Patient continue somewhat disorganized and confusing. They've been encouraging her to ambulate more appropriate PT to continue treatment with her Review of Systems Except as stated in HPI: all other systems reviewed are Neg Objective Alert: Yes [place]: Person, Place Mood: Calm Affect: Blunted Memory Intact: Comment (poor) Hallucinations: Auditory (denies), Other (internal stimuli) Delusions: Yes Delusion Type: Paranoid Suicidal: Ideation (denies) Homicidal: Ideation (denies) Insight/Judgment Poor Vitals/IOs Vital Signs Date Time Temp Pulse Resp B/P Pulse Ox O2 Delivery O2 Flow Rate FiO2 10/26/16 05:10 98.4 100 16 101/54 96 Intake and Output 10/25/16 10/25/16 10/26/16 08:00 16:00 00:00 Intake Total 720 ml 990 ml Balance 720 ml 990 ml Assessment & Plan Problem List: (1) Bipolar affective disorder, current episode manic with psychotic symptoms ICD Code: F31.2 Assessment & Plan Estimated LOS: days patient continues confused at times somewhat disoriented, compliant medications though her intrusiveness has diminished, her affect has decreased Justification for Cont. Inpt. At this time patient will decompensate if placed on lower level of care Discharge Planning To be determined Tim Ca MD Oct 26, 2016 13:09
[2016-10-26 18:00] VITALS: BP 116/66; PULSE 78; RESP 16; TEMP 97.3; O2SAT 97
--- NOTE | 2016-10-26 18:46 | HHI.PR ---
Subjective Interval History Alert, verbal, appears comfortable, very forgetful, Review of Systems Constitutional Constitutional Remarks 10 systems reviewed and otherwise negative but not reliable Vitals/Results Intake & Output 10/25/16 10/25/16 10/26/16 15:00 23:00 07:00 Intake Total 720 ml 990 ml Balance 720 ml 990 ml Intake Oral 720 ml 990 ml # Voids 2 2 3 # Bowel Movements 0 Vital Signs Vital Signs Date Time Temp Pulse Resp B/P Pulse Ox O2 Delivery O2 Flow Rate FiO2 10/26/16 18:00 97.3 78 16 116/66 97 10/26/16 05:10 98.4 100 16 101/54 96 Physical Exam General General Appearance: Well Developed, Comfortable Ears & Nose Ears & Nose Exam: Nasal Mucosa [place] Throat Throat Exam: Oral Mucosa [place] & Moist Neck Neck Exam: Trachea Midline Pulmonary Resp Exam: Breath Sounds Equal Cardiology CV Exam: Normal Sinus Rhythm, Good Perfusion Gastrointestinal/Abdomen GI Exam: Bowel Sounds Present Integumentary Skin Exam: Warm Skin Remarks Edema in both lower extremities, cellulitis appears to have improved Neurologic Neuro Exam: Awake, Speech Clear, Moving All Extremities, Combative Psychiatric Psych Exam: Appropriate Responses Assessment/Plan Assessment/Plan Plan A/P Assessment and Plan Dry skin over the lower extremities Vitamin D deficiency Bipolar affective disorder, current episode manic with psychotic symptoms Tachycardic at times Non-insulin dependent type 2 diabetes mellitus HX LEFT LEG DVT Anxiety Hypertension Cellulitis LLE, resolved Plan Use a soothing cream over both ankles Continue current treatment Antipsychotic the psychiatrist Replace vitamin D Diurese Blood sugar control Rate control We will follow intermittently Madelyn Short MD Oct 26, 2016 18:46
[2016-10-26] MEDS: OLANZapine ODT 20 MG TAB PO SCH (20:54)
[2016-10-26] MEDS: LACTIC ACID (AMMONIUM LACTATE) 12% LOTION 225 GM BTL TOPICAL SCH (20:55)
[2016-10-27 05:43] VITALS: BP 119/59; PULSE 90; RESP 19; TEMP 98.1; O2SAT 93
[2016-10-27] MEDS: THIOTHIXENE 10 MG CAP PO SCH ×2 (08:00→16:00)
[2016-10-27] MEDS: glipiZIDE 5 MG TAB PO SCH (08:40)
[2016-10-27] MEDS: METOPROLOL TARTRATE 25 MG TAB PO SCH ×2 (08:40→20:28)
[2016-10-27] MEDS: DIVALPROEX SODIUM E.R. 500 MG TAB PO SCH ×2 (08:49→20:27)
[2016-10-27] MEDS: LACTIC ACID (AMMONIUM LACTATE) 12% LOTION 225 GM BTL TOPICAL SCH ×2 (08:50→21:00)
[2016-10-27] MEDS: FUROSEMIDE 20 MG TAB PO SCH (08:50)
[2016-10-27] MEDS: CHOLECALCIFEROL (VIT D3) 1000 UNIT TAB PO SCH (08:50)
--- NOTE | 2016-10-27 11:39 | HHI.PYPN ---
Subjective Remarks Patient seen in day room with nurse Javier, patient more alert today with better eye contact speaking clearer and more focused. Her oral hygiene is better the appears to no residual food in her mouth. She is compliant with medication. It appears or peripheral edema is somewhat better today if the addition of a diuretic. For now continue treatment Review of Systems Except as stated in HPI: all other systems reviewed are Neg Objective Alert: Yes [place]: Person, Place Mood: Calm Affect: Blunted Memory Intact: Comment (poor) Hallucinations: Auditory (denies), Other (internal stimuli) Delusions: Yes Delusion Type: Paranoid Suicidal: Ideation (denies) Homicidal: Ideation (denies) Insight/Judgment Poor Vitals/IOs Vital Signs Date Time Temp Pulse Resp B/P Pulse Ox O2 Delivery O2 Flow Rate FiO2 10/27/16 05:43 98.1 90 19 119/59 93 Intake and Output 10/26/16 10/26/16 10/27/16 08:00 16:00 00:00 Intake Total 360 ml 600 ml Balance 360 ml 600 ml Assessment & Plan Problem List: (1) Bipolar affective disorder, current episode manic with psychotic symptoms ICD Code: F31.2 Assessment & Plan Estimated LOS: days patient calmer somewhat more focused today. Compliant medications. For now continue treatment Justification for Cont. Inpt. At this time patient will decompensate and placed in a lower level of care Discharge Planning To be determined Tim Ca MD Oct 27, 2016 11:38
--- NOTE | 2016-10-27 19:09 | HHI.PR ---
Subjective Interval History Sleeping, arousable, verbal, denies medical complaints, confused Review of Systems Constitutional Constitutional Remarks 10 systems reviewed and otherwise negative but not reliable Vitals/Results Intake & Output 10/26/16 10/26/16 10/27/16 15:00 23:00 07:00 Intake Total 360 ml 600 ml Balance 360 ml 600 ml Intake Oral 360 ml 600 ml # Voids 2 Vital Signs Vital Signs Date Time Temp Pulse Resp B/P Pulse Ox O2 Delivery O2 Flow Rate FiO2 10/27/16 05:43 98.1 90 19 119/59 93 Physical Exam General General Appearance: Well Developed, Comfortable Ears & Nose Ears & Nose Exam: Nasal Mucosa [place] Throat Throat Exam: Oral Mucosa [place] & Moist Neck Neck Exam: Trachea Midline Pulmonary Resp Exam: Breath Sounds Equal Cardiology CV Exam: Normal Sinus Rhythm, Good Perfusion Gastrointestinal/Abdomen GI Exam: Bowel Sounds Present Integumentary Skin Exam: Warm Skin Remarks Edema in both lower extremities, both legs are now in GINA stockings Neurologic Neuro Exam: Awake, Speech Clear, Moving All Extremities, Combative Psychiatric Psych Exam: Appropriate Responses Assessment/Plan Assessment/Plan Plan A/P Assessment and Plan Dry skin over the lower extremities Vitamin D deficiency Bipolar affective disorder, current episode manic with psychotic symptoms Tachycardic at times Non-insulin dependent type 2 diabetes mellitus HX LEFT LEG DVT Anxiety Hypertension Cellulitis LLE, resolved Plan soothing cream over both ankles twice a day Continue current treatment Antipsychotic the psychiatrist Replace vitamin D Diurese Blood sugar control Rate control We will follow intermittently Madelyn Short MD Oct 27, 2016 19:09
[2016-10-27 19:17] VITALS: BP 122/60; PULSE 96; RESP 16; TEMP 98.2; O2SAT 94
[2016-10-27] MEDS: OLANZapine ODT 20 MG TAB PO SCH (20:28)
[2016-10-28 06:21] VITALS: BP 126/72; PULSE 98; RESP 17; TEMP 97.3; O2SAT 94
--- NOTE | 2016-10-28 08:21 | HHI.PYPN ---
Subjective Remarks Patient seen in day room with nurse Javier, patient somewhat calmer today with slightly better eye contact. Continues to focus on wanting to go home to help her daughter. At times she appears somewhat distracted. But overall venetian blind cleaner and need her than prior. Compliant medications Review of Systems Except as stated in HPI: all other systems reviewed are Neg Objective Alert: Yes [place]: Person, Place Mood: Calm Affect: Blunted Memory Intact: Comment (poor) Hallucinations: Auditory (denies), Other (internal stimuli) Delusions: Yes Delusion Type: Paranoid Suicidal: Ideation (denies) Homicidal: Ideation (denies) Insight/Judgment Poor Vitals/IOs Vital Signs Date Time Temp Pulse Resp B/P Pulse Ox O2 Delivery O2 Flow Rate FiO2 10/28/16 06:21 97.3 98 17 126/72 94 Intake and Output 10/27/16 10/27/16 10/28/16 08:00 16:00 00:00 Intake Total 360 ml 2160 ml 720 ml Balance 360 ml 2160 ml 720 ml Assessment & Plan Problem List: (1) Bipolar affective disorder, current episode manic with psychotic symptoms ICD Code: F31.2 Assessment & Plan Estimated LOS: days patient somewhat calmer slight increased focus, still showing some mild grandiosity related to relationship with her daughter and daughter's care Justification for Cont. Inpt. This time patient would decompensate if placed in the lower level of care Discharge Planning To be determined Tim Ca MD Oct 28, 2016 08:20
[2016-10-28] MEDS: METOPROLOL TARTRATE 25 MG TAB PO SCH ×2 (08:52→21:35)
[2016-10-28] MEDS: FUROSEMIDE 20 MG TAB PO SCH (08:52)
[2016-10-28] MEDS: CHOLECALCIFEROL (VIT D3) 1000 UNIT TAB PO SCH (08:52)
[2016-10-28] MEDS: glipiZIDE 5 MG TAB PO SCH (08:52)
[2016-10-28] MEDS: DIVALPROEX SODIUM E.R. 500 MG TAB PO SCH ×2 (08:56→21:35)
[2016-10-28] MEDS: THIOTHIXENE 10 MG CAP PO SCH ×2 (08:56→16:00)
[2016-10-28] MEDS: LACTIC ACID (AMMONIUM LACTATE) 12% LOTION 225 GM BTL TOPICAL SCH ×2 (08:58→21:38)
--- NOTE | 2016-10-28 18:10 | HHI.PR ---
Subjective Interval History Sleeping, arousable, verbal, smiling, no specific complaints Review of Systems Constitutional Constitutional Remarks 10 systems reviewed and otherwise negative but not reliable Vitals/Results Intake & Output 10/27/16 10/27/16 10/28/16 15:00 23:00 07:00 Intake Total 2040 ml 480 ml 720 ml Balance 2040 ml 480 ml 720 ml Intake Oral 2040 ml 480 ml 720 ml # Voids 5 4 Vital Signs Vital Signs Date Time Temp Pulse Resp B/P Pulse Ox O2 Delivery O2 Flow Rate FiO2 10/28/16 06:21 97.3 98 17 126/72 94 10/27/16 19:17 98.2 96 16 122/60 94 Physical Exam General General Appearance: Well Developed, Comfortable Ears & Nose Ears & Nose Exam: Nasal Mucosa [place] Throat Throat Exam: Oral Mucosa [place] & Moist Neck Neck Exam: Trachea Midline Pulmonary Resp Exam: Breath Sounds Equal Cardiology CV Exam: Normal Sinus Rhythm, Good Perfusion Gastrointestinal/Abdomen GI Exam: Bowel Sounds Present Integumentary Skin Exam: Warm Skin Remarks Edema in both lower extremities, both legs are now in GINA stockings Neurologic Neuro Exam: Awake, Speech Clear, Moving All Extremities, Combative Psychiatric Psych Exam: Appropriate Responses Assessment/Plan Assessment/Plan Plan A/P Assessment and Plan Mild swelling left lower extremity Vitamin D deficiency Bipolar affective disorder, current episode manic with psychotic symptoms Tachycardic at times Non-insulin dependent type 2 diabetes mellitus HX LEFT LEG DVT Anxiety Hypertension Cellulitis LLE, resolved Plan soothing cream over both ankles twice a day Continue current treatment Diuretics Antipsychotic the psychiatrist Replace vitamin D Diurese Blood sugar control Rate control We will follow intermittently Madelyn Short MD Oct 28, 2016 18:10
[2016-10-28 18:37] VITALS: BP 134/86; PULSE 85; RESP 17; TEMP 98.5; O2SAT 97
[2016-10-28] MEDS: OLANZapine ODT 20 MG TAB PO SCH (21:00)
[2016-10-29 06:21] VITALS: BP 106/51; PULSE 85; RESP 18; TEMP 97.9; O2SAT 91
[2016-10-29 07:15] VITALS: BP 106/51; PULSE 85; RESP 18; TEMP 97.9; O2SAT 91
[2016-10-29] MEDS: THIOTHIXENE 10 MG CAP PO SCH ×2 (08:00→16:00)
[2016-10-29] MEDS: LACTIC ACID (AMMONIUM LACTATE) 12% LOTION 225 GM BTL TOPICAL SCH ×2 (09:00→21:00)
[2016-10-29] MEDS: DIVALPROEX SODIUM E.R. 500 MG TAB PO SCH ×2 (09:08→21:19)
[2016-10-29] MEDS: METOPROLOL TARTRATE 25 MG TAB PO SCH ×2 (09:08→21:19)
[2016-10-29] MEDS: CHOLECALCIFEROL (VIT D3) 1000 UNIT TAB PO SCH (09:08)
[2016-10-29] MEDS: FUROSEMIDE 20 MG TAB PO SCH (09:08)
[2016-10-29] MEDS: glipiZIDE 5 MG TAB PO SCH (09:08)
--- NOTE | 2016-10-29 11:55 | HHI.PYPN ---
Subjective Remarks Patient was seen and case discussed with nursing. Patient appears more organized compared to her last visit. Slightly less disheveled. His compliant with her medications and behaving well on the unit. She is alert and oriented 3. Asking about her physical therapy. Objective Alert: Yes [place]: Person, Place, Date Mood: Calm Affect: Restricted Memory Intact: Comment (improving) Hallucinations: Auditory (denies) Delusions: Yes Delusion Type: Paranoid (occasional) Suicidal: Ideation (denies) Homicidal: Ideation (denies) Insight/Judgment Limited Vitals/IOs Vital Signs Date Time Temp Pulse Resp B/P Pulse Ox O2 Delivery O2 Flow Rate FiO2 10/29/16 07:15 97.9 85 18 106/51 91 Intake and Output 10/28/16 10/28/16 10/29/16 08:00 16:00 00:00 Intake Total 840 ml 720 ml Balance 840 ml 720 ml Assessment & Plan Problem List: (1) Bipolar affective disorder, current episode manic with psychotic symptoms ICD Code: F31.2 Assessment & Plan Continue current treatment plan Justification for Cont. Inpt. Patient will decompensate in a less restrictive setting Cody Chaidez DO Oct 29, 2016 11:55
[2016-10-29 16:50] VITALS: BP 112/61; PULSE 66; RESP 19; TEMP 97; O2SAT 100
--- NOTE | 2016-10-29 17:47 | HHI.PR ---
Subjective Interval History Alert, verbal, she is requesting to have the insulin discontinued and go back to glipizide, denies other complaints Of note that her insulin has been discontinued muscle month ago, glipizide is being administered daily for at least a number of weeks Review of Systems Constitutional Constitutional Remarks 10 systems reviewed and otherwise negative but not reliable Vitals/Results Intake & Output 10/28/16 10/28/16 10/29/16 15:00 23:00 07:00 Intake Total 840 ml 720 ml 360 ml Balance 840 ml 720 ml 360 ml Intake Oral 840 ml 720 ml 360 ml # Voids 3 1 3 # Bowel Movements 0 0 Vital Signs Vital Signs Date Time Temp Pulse Resp B/P Pulse Ox O2 Delivery O2 Flow Rate FiO2 10/29/16 16:50 97.0 66 19 112/61 100 10/29/16 07:15 97.9 85 18 106/51 91 10/29/16 06:21 97.9 85 18 106/51 91 10/28/16 18:37 98.5 85 17 134/86 97 Physical Exam General General Appearance: Well Developed, Comfortable Ears & Nose Ears & Nose Exam: Nasal Mucosa [place] Throat Throat Exam: Oral Mucosa [place] & Moist Neck Neck Exam: Trachea Midline Pulmonary Resp Exam: Breath Sounds Equal Cardiology CV Exam: Normal Sinus Rhythm, Good Perfusion Gastrointestinal/Abdomen GI Exam: Bowel Sounds Present Integumentary Skin Exam: Warm Skin Remarks Edema in both lower extremities, both legs are now in GINA stockings Neurologic Neuro Exam: Awake, Speech Clear, Moving All Extremities, Combative Psychiatric Psych Exam: Appropriate Responses Assessment/Plan Assessment/Plan Plan A/P Assessment and Plan Diabetes Mild swelling left lower extremity Vitamin D deficiency Bipolar affective disorder, current episode manic with psychotic symptoms Tachycardic at times Non-insulin dependent type 2 diabetes mellitus HX LEFT LEG DVT Anxiety Hypertension Cellulitis LLE, resolved Plan Continue glipizide soothing cream over both ankles twice a day Continue current treatment Diuretics Antipsychotic the psychiatrist Replace vitamin D Diurese Rate control No sliding scale We will follow intermittently Madelyn Short MD Oct 29, 2016 17:47
[2016-10-29] MEDS: OLANZapine ODT 20 MG TAB PO SCH (21:20)
[2016-10-29] MEDS ORDERED: PILL SPLITTER OTHER PRN (22:00)
[2016-10-30 06:18] VITALS: BP 104/59; PULSE 95; RESP 16; TEMP 98.1; O2SAT 95
[2016-10-30 07:15] VITALS: BP 104/59; PULSE 95; RESP 16; TEMP 98.1; O2SAT 95
[2016-10-30] MEDS: glipiZIDE 5 MG TAB PO SCH (08:00)
[2016-10-30] MEDS: LACTIC ACID (AMMONIUM LACTATE) 12% LOTION 225 GM BTL TOPICAL SCH ×2 (09:00→20:45)
[2016-10-30] MEDS: METOPROLOL TARTRATE 25 MG TAB PO SCH ×2 (09:16→20:42)
[2016-10-30] MEDS: FUROSEMIDE 20 MG TAB PO SCH (09:16)
[2016-10-30] MEDS: CHOLECALCIFEROL (VIT D3) 1000 UNIT TAB PO SCH (09:16)
[2016-10-30] MEDS: DIVALPROEX SODIUM E.R. 500 MG TAB PO SCH ×2 (09:16→20:42)
[2016-10-30] MEDS: THIOTHIXENE 10 MG CAP PO SCH ×2 (09:18→17:08)
--- NOTE | 2016-10-30 11:45 | HHI.PYPN ---
Subjective Remarks Patient was seen and case discussed with nursing. Patient continues to improve. She is less elevated and more logical and organized. Eating and sleeping well. No bizarre content elicited during the interview. Productive visit with her daughter yesterday. Compliant with medications. Asking about discharge Objective Alert: Yes [place]: Person, Place, Date, Situation Mood: Calm Affect: Blunted Memory Intact: Comment (improving) Hallucinations: Auditory (denies) Delusions: Yes Delusion Type: Paranoid (none elicited) Suicidal: Ideation (denies) Homicidal: Ideation (denies) Insight/Judgment Improving Vitals/IOs Vital Signs Date Time Temp Pulse Resp B/P Pulse Ox O2 Delivery O2 Flow Rate FiO2 10/30/16 07:15 98.1 95 16 104/59 95 Intake and Output 10/29/16 10/29/16 10/30/16 08:00 16:00 00:00 Intake Total 720 ml 720 ml 720 ml Balance 720 ml 720 ml 720 ml Assessment & Plan Problem List: (1) Bipolar affective disorder, current episode manic with psychotic symptoms ICD Code: F31.2 Assessment & Plan Continue current treatment plan Justification for Cont. Inpt. Patient will decompensate in the less restrictive setting Cody Chaidez DO Oct 30, 2016 11:45
--- NOTE | 2016-10-30 19:15 | HHI.PR ---
Subjective Interval History Alert, verbal, forgetful, infused, pleasant, no specific complaints other than obsessing about her medications Review of Systems Constitutional Constitutional Remarks 10 systems reviewed and otherwise negative but not reliable Vitals/Results Intake & Output 10/29/16 10/29/16 10/30/16 15:00 23:00 07:00 Intake Total 1080 ml 840 ml Balance 1080 ml 840 ml Intake Oral 1080 ml 840 ml # Voids 3 4 Vital Signs Vital Signs Date Time Temp Pulse Resp B/P Pulse Ox O2 Delivery O2 Flow Rate FiO2 10/30/16 07:15 98.1 95 16 104/59 95 10/30/16 06:18 98.1 95 16 104/59 Physical Exam General General Appearance: Well Developed, Comfortable Ears & Nose Ears & Nose Exam: Nasal Mucosa [place] Throat Throat Exam: Oral Mucosa [place] & Moist Neck Neck Exam: Trachea Midline Pulmonary Resp Exam: Breath Sounds Equal Cardiology CV Exam: Normal Sinus Rhythm, Good Perfusion Gastrointestinal/Abdomen GI Exam: Bowel Sounds Present Integumentary Skin Exam: Warm Skin Remarks Edema in both lower extremities, both legs are now in GINA stockings Neurologic Neuro Exam: Awake, Speech Clear, Moving All Extremities, Combative Psychiatric Psych Exam: Appropriate Responses Assessment/Plan Assessment/Plan Plan A/P Assessment and Plan Diabetes Mild swelling left lower extremity, much improved Vitamin D deficiency Bipolar affective disorder, current episode manic with psychotic symptoms Tachycardic at times Non-insulin dependent type 2 diabetes mellitus HX LEFT LEG DVT Anxiety Hypertension Cellulitis LLE, resolved Plan Continue glipizide soothing cream over both ankles twice a day Continue current treatment Diuretics Antipsychotic the psychiatrist Replace vitamin D Diurese Rate control No sliding scale per patient's request, however this might have to be restarted soon We will follow intermittently Madelyn Short MD Oct 30, 2016 19:15
[2016-10-30] MEDS: OLANZapine ODT 20 MG TAB PO SCH (20:42)
[2016-10-30 21:18] VITALS: BP 125/66; PULSE 77; TEMP 97.1; O2SAT 95
[2016-10-31 06:03] VITALS: BP 114/61; PULSE 92; TEMP 98.2; O2SAT 95
[2016-10-31] MEDS: THIOTHIXENE 10 MG CAP PO SCH ×2 (08:00→16:00)
[2016-10-31] MEDS: glipiZIDE 5 MG TAB PO SCH (08:00)
[2016-10-31] MEDS: METOPROLOL TARTRATE 25 MG TAB PO SCH ×2 (08:44→21:16)
[2016-10-31] MEDS: DIVALPROEX SODIUM E.R. 500 MG TAB PO SCH (08:45)
[2016-10-31] MEDS: FUROSEMIDE 20 MG TAB PO SCH (08:45)
[2016-10-31] MEDS: LACTIC ACID (AMMONIUM LACTATE) 12% LOTION 225 GM BTL TOPICAL SCH ×2 (08:50→21:00)
[2016-10-31] MEDS: CHOLECALCIFEROL (VIT D3) 1000 UNIT TAB PO SCH (08:50)
--- NOTE | 2016-10-31 15:33 | HHI.PYPN ---
Subjective Remarks Patient seen and examined with nurse. Chart reviewed. Case discussed with nursing staff reports patient has been no behavioral problem. On my examination today, I find the patient sitting in the day area. She is calm and pleasant on examination. No SI or HI voiced. Mood is good. Denies side effects from medications. She does request that we switch her Depakote to once daily Depakote ER as she says that she has appreciated the ease of dosing with this medication in the past. Review of Systems Except as stated in HPI: all other systems reviewed are Neg Objective Alert: Yes [place]: Person, Place, Date Mood: Calm Affect: Appropriate (fairly full and reactive) Memory Intact: Comment (not formally assessed) Hallucinations: Other (no AVH) Delusions: No Delusion Type: Other (no delusions elicited today) Suicidal: Ideation (no SI) Homicidal: Ideation (no HI) Insight/Judgment Poor Remarks No motor abnormalities noted. Thought processes fairly linear. Labs Labs reviewed. Vitals/IOs Vital Signs Date Time Temp Pulse Resp B/P Pulse Ox O2 Delivery O2 Flow Rate FiO2 10/31/16 06:03 98.2 92 114/61 95 10/30/16 07:15 16 Intake and Output 10/30/16 10/30/16 10/31/16 08:00 16:00 00:00 Intake Total 360 ml 810 ml 360 ml Balance 360 ml 810 ml 360 ml Assessment & Plan Problem List: (1) Bipolar affective disorder, current episode manic with psychotic symptoms ICD Code: F31.2 Assessment & Plan Replace Depakote DR with Depakote ER 1250 mg at bedtime, the dose increased as recommended to maintain steady plasma levels. Check a Depakote level later this week. I will check an updated set of basic laboratories in the morning. Continue to monitor on the geropsychiatry unit. Continue other medications and care as ordered. Justification for Cont. Inpt. Medication changes in process. High risk for decompensation in a less restrictive environment. Discharge Planning Case discussed with counselor. Request HC Surrog/Guard Advoc?: Yes (TRAE) Osiel Davis MD Oct 31, 2016 15:33
[2016-10-31 20:00] VITALS: BP 120/65; PULSE 75; RESP 15; O2SAT 96
[2016-10-31] MEDS ORDERED: DIVALPROEX SODIUM E.R. 250 MG TAB PO SCH (21:00)
[2016-10-31] MEDS: diphenhydrAMINE HCL 25 MG CAP PO PRN (21:17)
[2016-10-31] MEDS: OLANZapine ODT 20 MG TAB PO SCH (21:17)
[2016-11-01 05:58] VITALS: BP 101/56; PULSE 85; RESP 16; TEMP 95.5
[2016-11-01] MEDS: THIOTHIXENE 10 MG CAP PO SCH (08:00)
[2016-11-01] MEDS: CHOLECALCIFEROL (VIT D3) 1000 UNIT TAB PO SCH (08:33)
[2016-11-01] MEDS: METOPROLOL TARTRATE 25 MG TAB PO SCH (08:33)
[2016-11-01] MEDS: glipiZIDE 5 MG TAB PO SCH (08:33)
[2016-11-01] MEDS: FUROSEMIDE 20 MG TAB PO SCH (08:33)
[2016-11-01] MEDS: LACTIC ACID (AMMONIUM LACTATE) 12% LOTION 225 GM BTL TOPICAL SCH (09:00)
[2016-11-01 09:30] LABS: HEMATOCRIT 30.4 % (35.0-46.0); MEAN CELL VOLUME 84.4 FL (80.0-100.0); MEAN CORPUSCULAR HEMOGLOBIN 28.4 PG (27.0-34.0); MEAN CORPUSCULAR HGB CONC 33.7 % (32.0-36.0); PLATELET COUNT 182 TH/MM3 (150-450); RED CELL DISTRIBUTION WIDTH 17.7 % (11.6-17.2)
[2016-11-01 09:31] LABS: HEMO FLAGS AUTO DIFF
[2016-11-01 10:07] LABS: BANDS 11 % (0-6); BASOPHILS 1 % (0-2); EOSINOPHILS 1 % (0-4); NEUTROPHIL # MANUAL DIFF 3.2 TH/MM3 (1.8-7.7); POLYS (SEG NEUTROPHILS) 52 % (16-70); WBC DIFF SAMPLE 100
[2016-11-01 10:08] LABS: PLATELET ESTIMATE SMEAR NORMAL (NORMAL); PLATELET MORPHOLOGY NORMAL (NORMAL); SCAN/DIFF FINAL DIFF MANUAL
[2016-11-01 10:13] LABS: BICARBONATE 26.2 MEQ/L (21.0-32.0); POTASSIUM 3.7 MEQ/L (3.5-5.1); TOTAL BILIRUBIN ADULT 0.3 MG/DL (0.2-1.0)
[2016-11-01 10:20] LABS: CALCIUM-PROTEIN CORRECTED 12.2 MG/DL (8.5-10.1)
--- NOTE | 2016-11-01 11:07 | HHI.PYPN ---
Objective Alert: Yes [place]: Person, Place, Date Mood: Calm Affect: Appropriate (fairly full and reactive) Memory Intact: Comment (not formally assessed) Hallucinations: Other (no AVH) Delusions: No Delusion Type: Other (no delusions elicited today) Suicidal: Ideation (no SI) Homicidal: Ideation (no HI) Labs Test 11/01/16 07:47 White Blood Count 5.0 TH/MM3 Red Blood Count 3.60 MIL/MM3 Hemoglobin 10.2 GM/DL Hematocrit 30.4 % Mean Corpuscular Volume 84.4 FL Mean Corpuscular Hemoglobin 28.4 PG Mean Corpuscular Hemoglobin 33.7 % Concent Red Cell Distribution Width 17.7 % Platelet Count 182 TH/MM3 Mean Platelet Volume 9.1 FL Neutrophils (%) (Auto) % Lymphocytes (%) (Auto) % Monocytes (%) (Auto) % Eosinophils (%) (Auto) % Basophils (%) (Auto) % Neutrophils # (Auto) TH/MM3 Lymphocytes # (Auto) TH/MM3 Monocytes # (Auto) TH/MM3 Eosinophils # (Auto) TH/MM3 Basophils # (Auto) TH/MM3 CBC Comment AUTO DIFF Differential Total Cells 100 Counted Neutrophils % (Manual) 52 % Band Neutrophils % 11 % Lymphocytes % 20 % Monocytes % 15 % Eosinophils % 1 % Basophils % 1 % Neutrophils # (Manual) 3.2 TH/MM3 Differential Comment FINAL DIFF MANUAL Platelet Estimate NORMAL Platelet Morphology Comment NORMAL Sodium Level 139 MEQ/L Potassium Level 3.7 MEQ/L Chloride Level 103 MEQ/L Carbon Dioxide Level 26.2 MEQ/L Anion Gap 10 MEQ/L Blood Urea Nitrogen 40 MG/DL Creatinine 2.80 MG/DL Estimat Glomerular Filtration 17 ML/MIN Rate Random Glucose 92 MG/DL Calcium Level 12.4 MG/DL Protein Corrected Calcium 12.2 MG/DL Total Bilirubin 0.3 MG/DL Aspartate Amino Transf 10 U/L (AST/SGOT) Alanine Aminotransferase 11 U/L (ALT/SGPT) Alkaline Phosphatase 56 U/L Total Protein 7.5 GM/DL Albumin 2.4 GM/DL Vitals/IOs Vital Signs Date Time Temp Pulse Resp B/P Pulse Ox O2 Delivery O2 Flow Rate FiO2 11/01/16 05:58 95.5 85 16 101/56 10/31/16 20:00 96 Intake and Output 10/31/16 10/31/16 11/01/16 08:00 16:00 00:00 Intake Total 120 ml 1320 ml Balance 120 ml 1320 ml Assessment & Plan Problem List: (1) Bipolar affective disorder, current episode manic with psychotic symptoms ICD Code: F31.2 Assessment & Plan Estimated LOS: days Request HC Surrog/Guard Advoc?: Yes (TRAE) Osiel Davis MD Nov 01, 2016 11:07
[2016-11-01 11:44] LABS: MEAN CELL VOLUME 83.3 FL (80.0-100.0); MEAN CORPUSCULAR HEMOGLOBIN 28.3 PG (27.0-34.0); PLATELET COUNT 191 TH/MM3 (150-450); RED BLOOD COUNT 3.72 MIL/MM3 (4.00-5.30); RED CELL DISTRIBUTION WIDTH 17.4 % (11.6-17.2); REVIEW FLAG FINAL; WHITE BLOOD COUNT 4.2 TH/MM3 (4.0-11.0)
[2016-11-01 12:13] LABS: POTASSIUM 3.5 MEQ/L (3.5-5.1)
[2016-11-01 12:36] LABS: CALCIUM-PROTEIN CORRECTED 12.3 MG/DL (8.5-10.1)
[2016-11-01 12:56] VITALS: BP 126/56; PULSE 78; RESP 16; TEMP 98.2; O2SAT 99
[2016-11-01] MEDS ORDERED: SODIUM CHLOR 0.9% 1000 ML INJ 1,000 ML IV SCH (13:00)
[2016-11-01] MEDS ORDERED: GLIP5 PO (13:45)
[2016-11-01] MEDS ORDERED: METO25TA3 PO (13:45)
[2016-11-01] MEDS ORDERED: THIO10CA PO (13:45)
[2016-11-01] MEDS ORDERED: OLANZ20 PO (13:45)
[2016-11-01] MEDS ORDERED: DEPA500T3 PO (13:45)
[2016-11-01] MEDS ORDERED: VITA100018 PO (13:45)
--- NOTE | 2016-11-01 13:45 | HHI.DS ---
Psychiatry Discharge Summary Inpatient Psychiatric care?: Yes Advance Directive: No Reason Not Provided: PT CONFUSED Mental Health AdvanceDirective: No Health Care Proxy: No Admission Admission Date Sep 24, 2016 at 21:30 Admission Diagnosis: (1) Bipolar affective disorder, current episode manic with psychotic symptoms ICD Code: F31.[address] Ca's H&P: This is a 66-year-old female who has been treated here as an inpatient at [facility] on multiple occasions. She is well known to this physician as well as the staff at [facility] for her bipolar disorder with accompanying mena at this point. Apparently she was at a family function yesterday and was laughing and acting hysterically. She could not be understood by family members and she was not cooperative or able to make logical sense. Law enforcement was called and apparently felt she was unable to care for herself and her hearing-impaired daughter, who lives with her. At this time, the patient is obviously elevated and expansive in her mood yet she is demanding that Dr. Costa Colón performed electroconvulsive therapy on her. She is aware of the machine is not working and that Dr. Colón is not working here yet she demands these things in an unreasonable and irritable fashion. There is some question as to whether Ms. Hurley has been compliant with her medications or not. This physician feels she needs to be placed back on her Depakote and not vein and observed and evaluated for appropriate response. She has no history of alcohol abuse or drug abuse. She remains grandiose in her expectations of treatment. As she cannot produce or discuss a coordinated plan to care for herself, this physician feels that her bipolar mena is of sufficient severity to warn inpatient hospitalization. On my examination today: Patient seen and examined. Chart reviewed. Case discussed with nursing staff as well as with Dr. Ca. On my examination today, the patient presents as fairly disorganized. Her speech is rambling and somewhat garbled and mostly word salad. Affect is fairly dysphoric. She is noncommittal when I ask about SI, HI or AVH. Patient does appear to be responding to internal stimuli. Psychiatric interview is limited because of degree of thought disorganization. I am unable to obtain any past psychiatric, family, chemical dependency or social history from this patient given her current degree of thought disorganization. I did obtain these data when I evaluated her approximately one year ago when she was hospitalized on the inpatient psychiatric unit under my care. Tobacco Use In Past 30 Days: No Tobacco Past 30 Days Alcohol Use: Never Hospital Course Patient was admitted to a locked, inpatient psychiatric unit. A general medical consultation was obtained. Appropriate precautions were in place throughout patient's hospital stay. Patient was seen and examined on the unit by psychiatry and also visited by counselor. Medications were adjusted. Patient's presenting psychiatric symptomatology improved during the course of her hospital stay. On the day of discharge: Patient seen and examined. Chart reviewed. Case discussed in treatment team with nurse, counselor and occupational therapist. Laboratories that I ordered for this morning have resulted, revealing significantly decreased GFR and hypercalcemia. Nursing staff has been in contact with the hospitalist who is recommending admission to the medical unit for further evaluation of this problem. The patient has been no behavioral problem per nursing report. On my examination today, the patient is in good spirits. I have discussed the concerns regarding the laboratory values, and the patient understands the circumstances. She is agreeable to going to the medical floor for further evaluation. She does not articulate any current suicidal or homicidal ideation. Mood is presently stable. No evidence of psychosis at this time. She denies any side effects from medications. She has no physical complaints at this time. Patient will be discharged today to the medical floor for further management of renal impairment and hypercalcemia. Results Blood Pressure 126 / 56 Vital Signs Date Time Temp Pulse Resp B/P Pulse Ox O2 Delivery O2 Flow Rate FiO2 11/01/16 12:56 98.2 78 16 126/56 99 Laboratory Tests Test 11/01/16 11/01/16 07:47 11:18 Red Blood Count 3.60 MIL/MM3 3.72 MIL/MM3 (4.00-5.30) (4.00-5.30) Hemoglobin 10.2 GM/DL 10.5 GM/DL (11.6-15.3) (11.6-15.3) Hematocrit 30.4 % 31.0 % (35.0-46.0) (35.0-46.0) Red Cell Distribution Width 17.7 % 17.4 % (11.6-17.2) (11.6-17.2) Band Neutrophils % 11 % (0-6) Monocytes % 15 % (0-8) Blood Urea Nitrogen 40 MG/DL (7-18) 41 MG/DL (7-18) Creatinine 2.80 MG/DL 2.88 MG/DL (0.50-1.00) (0.50-1.00) Estimat Glomerular Filtration 17 ML/MIN (>89) 16 ML/MIN (>89) Rate Calcium Level 12.4 MG/DL 12.7 MG/DL (8.5-10.1) (8.5-10.1) Protein Corrected Calcium 12.2 MG/DL 12.3 MG/DL (8.5-10.1) (8.5-10.1) Aspartate Amino Transf 10 U/L (15-37) (AST/SGOT) Albumin 2.4 GM/DL (3.4-5.0) Random Glucose 48 MG/DL (74-106) Summary of Procedures None done Imaging Last Impressions Lower Extremity Ultrasound 10/05/16 0000 Signed Impressions: Service Date/Time: Wednesday, October 05, 2016 18:39 - CONCLUSION: No evidence of deep venous thrombosis within the lower extremities. Small right popliteal cyst measuring 3.5 x 1.4 x 1.7 cm. August Arora MD Foot X-Ray 09/24/16 0000 Signed Impressions: Service Date/Time: Saturday, September 24, 2016 17:59 - CONCLUSION: 1. No acute fracture or malalignment identified. 2. Chronic deformity of the mid and hindfoot with degenerative change. 3. Diffuse osteopenia. Alexander Walter MD Ankle X-Ray 09/24/16 0000 Signed Impressions: Service Date/Time: Saturday, September 24, 2016 17:56 - CONCLUSION: No acute fracture or malalignment. Chronic changes. Alexander Walter MD Pending results at discharge: No Medications # of Antipsychotic meds at D/C: 2 Appropriate >1 Antipsych meds?: 4 Approp Antipsych med options 1 - Minimum of three failed multiple trials of monotherapy. 2 - Documented plan to taper to monotherapy due to previous use of multiple meds OR cross-taper in progress at D/C. 3 - Documentation of augmentation of Clozapine. 4 - Justification other than those listed in allowable values 1-3, document here : Patient is not being discharged from the hospital at this time Discharge Discharge Date: Nov 01, 2016 Discharge Diagnosis: (1) Bipolar disorder Diagnosis: Principal ICD Code: F31.9 Mental Status Exam at Disch Patient is in hospital [facility]. She is fairly well groomed. She is awake and alert and oriented to person and hospital at least. No evidence of delirium at this time. No abnormal motor movements noted. Speech is within normal limits for rate, tone and volume. Language and fund of knowledge seem average. Mood is fair and affect is blunted. Thought process linear. No loosening of associations. No evident delusions. No audiovisual hallucinations. No suicidal or homicidal ideation, intent or plan. Insight and judgment are poor. Pt Condition on Discharge: Guarded (as a consequence of medical illness) Discharge Disposition: Disch to Another Hospital Discharge Instructions Diet Instructions: Diabetic Diet Activities you can perform: Weight Bearing as Justin Scheduled Appointment: patient is not being discharged from the hospital at this time New Medications: Cholecalciferol (Vitamin D3) 1,000 Unit Tab 1000 UNITS PO DAILY Nutritional Supplement Days 0 Ref 0 TAB Divalproex ER (Depakote ER) 500 Mg Diana 1000 MG PO HS Mental Health Days 0 Ref 0 TAB Glipizide (Glucotrol) 5 Mg Tab 5 MG PO DAILY@08 Blood Pressure Management Days 0 Ref 0 TAB Metoprolol Tartrate (Metoprolol Tartrate) 25 Mg Tab 12.5 MG PO Q12HR Blood Pressure Management Days 0 Ref 0 TAB Olanzapine Odt (Zyprexa Zydis) 20 Mg Tab 20 MG PO HS Mental Health Days 0 Ref 0 TAB Thiothixene (Thiothixene) 10 Mg Cap 10 MG PO DAILY@08,16 Mental Health Days 0 Ref 0 CAP Discontinued Medications: Diphenhydramine (Diphenhydramine) 25 Mg Cap 50 MG PO HS PRN INSOMNIA Ref 0 CAP Divalproex ER (Depakote ER) 500 Mg Diana 500 MG PO BID Control Seizures #30 Ref 0 TAB Glipizide (Glipizide) 5 Mg Tab 5 MG PO HS Take 30 minutes before a meal Blood Sugar Management #30 Ref 0 TAB Glipizide (Glipizide) 10 Mg Tab 10 MG PO DAILY Take 30 minutes before a meal Blood Sugar Management #30 Ref 0 TAB Discharge Time <= 30 minutes Discharge/Advance Care Plan Health Problems: (1) Bipolar affective disorder, current episode manic with psychotic symptoms Goals to promote your health * To prevent worsening of your condition and complications * To maintain your health at the optimal level Directions to meet your goals Take your medications as prescribed Follow your dietary instruction Follow activity as directed Keep your appointments as scheduled Take your immunizations and boosters as scheduled If your symptoms worsen call your PCP, if no PCP go to Urgent Care Center or Emergency Room For 30/01 questions related to your inpatient stay or results of tests pending at discharge, please contact Dr. Osiel Davis at Smoking is Dangerous to Your Health. Avoid second hand smoking Problem Qualifiers (1) Bipolar disorder: Qualified Code: F31.73 - Bipolar disorder, in partial remission, most recent episode manic Osiel Davis MD Nov 01, 2016 13:45
--- NOTE | 2016-11-01 14:21 | RADRPT ---
EXAM DATE/TIME: 11/01/2016 13:20 [facility] COMPARISON: No previous studies available for comparison. INDICATIONS : Increased BUN/creatinine. MEDICAL HISTORY : Hypertension. Deep venous thrombosis. Arthritis. Neurologic problems. Diabetes. Schizoaffective disor gary. Bipolar disorder. Depression. Anxiety. SURGICAL HISTORY : Right hip replacement. ENCOUNTER: Initial ACUITY: 1 day PAIN SCORE: 0/10 LOCATION: Bilateral flank MEASUREMENTS: RIGHT KIDNEY: 10.0 x 4.2 x 4.8 cm LEFT KIDNEY: 12.0 x 5.8 x 6.2 cm FINDINGS: RIGHT KIDNEY: Renal cortex is normal in thickness with slight increased echogenicity. No hydronephrosis, stone, or mass. LEFT KIDNEY: Renal cortex is normal in thickness with slight increased echotexture. No hydronephrosis, stone, or mass. BLADDER: Within normal limits given the degree of distension. CONCLUSION: 1. Kidney size is preserved bilaterally with slight increased cortical echogenicity characteristic of acute medical renal disease. 2. Otherwise negative. No hydronephrosis or nephrolithiasis. Vince Dos Santos MD on November 01, 2016 at 14:17 Board Certified Radiologist. This report was verified electronically.
[2016-11-01] MEDS ORDERED: DIVALPROEX SODIUM E.R. 500 MG TAB PO SCH (21:00)
== END 2016-11-01 15:00 | disposition short-term general hospital (02) | DRG 885 ==
LOC: NEPA 15:58 → H250 21:30 → NEDA 22:47 → UNDOADMIN 22:47 → H250 09-25 00:36 → NEDA 09-25 00:36 → H250 10-12 20:56
PROVIDERS: ADMIT Psychiatry & Neurology Psychiatry; ATTEND Psychiatry & Neurology Psychiatry
PROC: 0HBRXZZ Excision of Toe Nail, External Approach (ICD-10-PCS; principal; 2016-10-02)
PROC: 0HBRXZZ Excision of Toe Nail, External Approach (ICD-10-PCS; 2016-10-02)
PROC: 0HBRXZZ Excision of Toe Nail, External Approach (ICD-10-PCS; 2016-10-02)
PROC: 0HBRXZZ Excision of Toe Nail, External Approach (ICD-10-PCS; 2016-10-02)
PROC: 0HBRXZZ Excision of Toe Nail, External Approach (ICD-10-PCS; 2016-10-02)
PROC: 0HBRXZZ Excision of Toe Nail, External Approach (ICD-10-PCS; 2016-10-02)
PROC: 0HBRXZZ Excision of Toe Nail, External Approach (ICD-10-PCS; 2016-10-02)
PROC: 0HBRXZZ Excision of Toe Nail, External Approach (ICD-10-PCS; 2016-10-02)
PROC: 0HBRXZZ Excision of Toe Nail, External Approach (ICD-10-PCS; 2016-10-02)
PROC: 0HBRXZZ Excision of Toe Nail, External Approach (ICD-10-PCS; 2016-10-02)
DX: F31.2 Bipolar disorder, current episode manic severe with psychotic features (principal); E11.9 Type 2 diabetes mellitus without complications; E55.9 Vitamin D deficiency, unspecified; E83.52 Hypercalcemia; L03.116 Cellulitis of left lower limb; R00.0 Tachycardia, unspecified; I10 Essential (primary) hypertension; B35.1 Tinea unguium; I89.0 Lymphedema, not elsewhere classified; L60.0 Ingrowing nail; L60.2 Onychogryphosis; Z86.718 Personal history of other venous thrombosis and embolism; Z86.73 Personal history of transient ischemic attack (TIA), and cerebral infarction without residual deficits; Z79.84 Long term (current) use of oral hypoglycemic drugs; Z88.6 Allergy status to analgesic agent; Z88.0 Allergy status to penicillin; Z88.2 Allergy status to sulfonamides
CPT/HCPCS: 73610; 73630; 76775; 80048; 80053; 80061; 80164; 80307; 82306; 82550; 82552; 82607; 82948; 83036; 83735; 83970; 84100; 84155; 84439; 84443; 84550; 85007; 85025; 85027; 86592; 93005; 93970; 99285; J2060

== ENCOUNTER 2016-11-01 14:20 | Inpatient (IN) | payer MEDICARE ==
[~2016-11-01 14:20] MED LIST changes: +DIPH25CA PO; -DIVA250ER PO; -FURO1TAB93 PO; +GLIP10TA6 PO; +GLIP5TAB8 PO; -KCL20 PO; -LASI20TA PO; -METO25 PO; +METO25TA3 PO; +OLANZ20 PO; -THIO PO; +THIO10CA PO; +VITA100018 PO
[2016-11-01] MEDS ORDERED: DEXTROSE 50% IN WATER 50 ML VIAL(D50) IV PUSH PRN (16:30)
[2016-11-01] MEDS ORDERED: GLUCAGON 1 MG/ML VIAL OTHER PRN (16:30)
--- NOTE | 2016-11-01 16:59 | PD.CONS ---
[facility] Service Nephrology Consult Requested By Merrill Reason for Consult Acute renal failure, hypercalcemia Primary Care Physician Abdoulaye Barclay DO History of Present Illness Linda is a 66 y/o female pt. She was admitted to the inpatient psychiatry floor for bipolar management. Routine labs today revealed serum creatinine of 2/8, Calcium 12.7, protein corrected calcium 12.3. Her creatinine was 0.96 on 10/05. She was transferred to medical floor and we were consulted for management. On exam she is awake, alert and in no distress. She reports she feels "dehydrated" , has not been drinking water as she normally does. Denies using lasix at home prior to admission on 09/24, but has been receiving 20 mg daily since October 25. A evangelista was placed today, the urine returned was clear, and appeared to have a yeast infection. She has no complaints of weakness, muscle twitching/ cramping, or confusion. She is a full code. Of note she denies taking any Tums or antacids recently, has been eating normally. (Verónica Lincoln) Review of Systems Constitutional: COMPLAINS OF: Fatigue, DENIES: Fever, Weight gain, Change in appetite Musculoskeletal: DENIES: Joint pain, Muscle aches Integumentary: DENIES: Abnormal pigmentation Psychiatric: COMPLAINS OF: Mood changes, DENIES: Anxiety, Confusion, Depression (Verónica Lincoln) Past Family Social History Allergies: Coded Allergies: Motrin (Verified Allergy, Severe, HIVES, 10/03/15) Penicillin (Verified Allergy, Severe, HIVES, 10/03/15) Sulfa (Verified Allergy, Severe, Hives, 10/03/15) Past Medical History Bipolar/anxiety with multiple inpatient psychiatric admission HTN DM II DVT no longer on anticoagulation CVA without residual deficit club foot bilaterally Past Surgical History exploratory lap right foot Reported Medications prior to last admission, home medications included Thiothixene 5 Mg Cap 5 Mg PO BID 15 Days Kcl 20 Meq Tab (Potassium Chloride) 20 Meq Tabcr 20 Meq PO DAILY 15 Days Furosemide 40 Mg Tab 40 Mg PO DAILY 15 Days Depakote (Divalproex Sodium) 500 Mg Diana 500 Mg PO DAILY 15 Days Depakote ER 250 mg (Divalproex Sodium) 250 Mg Diana 750 Mg PO HS 15 Days Metoprolol Tartrate 25 mg (Metoprolol Tartrate) 25 Mg Tab 25 Mg PO Q12 Glucotrol (Glipizide) 5 Mg Tab 5 Mg PO BIDAC Active Ordered Medications Current Medications Medications (Trade) Dose Ordered Sig/Valentina Route Start Time Stop Time Status Last Admin (Depakote Er) 1,000 mg HS PO 11/01/16 21:00 (Lopressor) 12.5 mg Q12HR PO 11/01/16 21:00 (ZyPREXA ZYDIS ODT) 20 mg HS PO 11/01/16 21:00 Thiothixene 10 mg 10 mg DAILY@08,16 PO 11/02/16 08:00 (NS 1000 ml Inj) 1,000 ml @ 125 mls/hr Q8H IV 11/01/16 16:30 (D50w (Vial) Inj) 25 ml UNSCH PRN IV PUSH 11/01/16 16:30 UNV (Glucagon Inj) 1 mg UNSCH PRN OTHER 11/01/16 16:30 UNV Family History no hx of renal disorders Social History lives with daughter she is a non smoker, no ETOh or drug use admitted retired/disabled, 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 (Verónica Lincoln) Physical Exam Physical Exam Disheveled elderly female, awake, alert, oriented x 3 no neuro deficits S1/S2, regular rate, no murmurs Lungs: clear in all babin Abd: soft, round, non tender : incontinent at times; evangelista placed with yellow urine, suspected yeast infection Ext: trace edema; club foot bilaterally Laboratory reviewed from previous admission, labs obtained today, include creatinine 2.8 Ca 12.7, PCC 12.3 Vitamin D 12.6 (Verónica Lincoln) Assessment and Plan Problem List: (1) Acute renal failure Plan: In a pt with normal renal function at baseline KANCHAN may be due to overdiuresis, she was on Lasix from 10/25 until today also hypercalcemic, see below at this time, begin IVF @ 125 cc/hr a evangelista was placed, obtain UA for analysis of infection, protein monitor renal function, urine output measurement avoid nephrotoxic substances daily renal panel (2) Hypercalcemia Plan: due to acute renal failure secondary to intravascular volume depletion; she was also on oral vitamin D replacement stop vitamin D, continue IVF check PTH in A.M. and repeat serum calcium level at that time 24 urine for calcium is not indicated at this time (3) Hypertension Plan: monitor BP, continue metoprolol avoid ACEI and diuretics until renal failure resolves (Verónica Lincoln) Assessment and Plan patient was seen and examined. Patient with bipolar disorder admitted to psychiatry [facility]. Was receiving Lasix for lower extremity edema. Has history of DVT. Also is noted to have hypercalcemia Start IVF. Hold Vitamin D. Obtain PTH. Hold diuretics. If hypercalcemia persists, additional workup and management. (Thor Andrew MD) Verónica Lincoln Nov 01, 2016 16:59 Thor Andrew MD Nov 01, 2016 17:15
[2016-11-01] MEDS: SODIUM CHLOR 0.9% 1000 ML INJ 1,000 ML IV SCH (17:17)
--- NOTE | 2016-11-01 17:36 | HHI.PR ---
Objective Physical Exam Physical Exam PT is seen & Examined chart Reviewed d/w PT d/w Renetta d/w Dr Andrew see Orders see H&P will f/u Elicia Purcell MD Nov 01, 2016 17:36
[2016-11-01 18:17] LABS: BACTERIA, URINE MANY /hpf; BLOOD, URINE NEG (NEG); COMMENT (UR) CULTURE INDICATED; CULTURE IF INDICATED CULTURE INDICATED; GLUCOSE,URINE NEG (NEG); KETONE, URINE NEG (NEG); NITRITE,URINE POS (NEG); PH, URINE 6.5 (5.0-8.5); URINE COLOR LIGHT-YELLOW (YELLW/STRAW)
[2016-11-01 20:00] VITALS: BP 123/89; PULSE 86; RESP 20; RESP 22; TEMP 98; TEMP 98.4; O2SAT 94
[2016-11-01] MEDS: INSULIN ASPART SUPPLEMENTAL SCALE SQ SCH (21:00)
[2016-11-01] MEDS: OLANZapine ODT 20 MG TAB PO SCH (21:14)
[2016-11-01] MEDS: DIVALPROEX SODIUM E.R. 500 MG TAB PO SCH (21:14)
[2016-11-01] MEDS: METOPROLOL TARTRATE 25 MG TAB PO SCH (21:15)
[2016-11-01 22:16] LABS: TOTAL BILIRUBIN ADULT 0.3 MG/DL (0.2-1.0); TOTAL PROTEIN SPE 7.4 GM/DL (6.0-7.6)
[2016-11-02] VITALS (10 sets, daily range): BP systolic 113–126; BP diastolic 66–81; PULSE 65–90; RESP 18–20; TEMP 97.3–98.4; O2SAT 94–100
[2016-11-02] MEDS: SODIUM CHLOR 0.9% 1000 ML INJ 1,000 ML IV SCH ×4 (00:30→20:32)
[2016-11-02 06:19] LABS: HEMATOCRIT 28.3 % (35.0-46.0); MEAN CELL VOLUME 83.4 FL (80.0-100.0); MEAN CORPUSCULAR HEMOGLOBIN 28.1 PG (27.0-34.0); MEAN CORPUSCULAR HGB CONC 33.7 % (32.0-36.0); PLATELET COUNT 170 TH/MM3 (150-450); RED BLOOD COUNT 3.39 MIL/MM3 (4.00-5.30); RED CELL DISTRIBUTION WIDTH 17.6 % (11.6-17.2); REVIEW FLAG FINAL; WHITE BLOOD COUNT 4.6 TH/MM3 (4.0-11.0)
[2016-11-02] MEDS: INSULIN ASPART SUPPLEMENTAL SCALE SQ SCH ×4 (07:00→20:32)
[2016-11-02 07:23] LABS: BICARBONATE 25.9 MEQ/L (21.0-32.0); POTASSIUM 3.8 MEQ/L (3.5-5.1)
[2016-11-02 07:51] LABS: CALCIUM-PROTEIN CORRECTED 12.2 MG/DL (8.5-10.1)
--- NOTE | 2016-11-02 09:22 | MH ---
cc: GIOVANI PURCELL MD DATE OF ADMISSION: 11/01/2016 DATE OF 1950 REASON FOR ADMISSION: Abnormal labs, hypercalcemia and acute renal failure. HISTORY OF PRESENT ILLNESS This is a very pleasant 66-year-old female who is been in the inpatient psychiatric floor for bipolar management for several weeks. The patient had been treated and following her regimen without any major issues, up until today, routine lab work was drawn which showed a serum creatinine elevation of 2.88, BUN of 41 and calcium level of 12.7. The patients blood sugar was also noted to be 48 on her labs. When I discussed abnormal labs with her the patient states that she had been feeling a little tired and possibly dehydrated but had been drinking water and eating her food as normal. The patient has been receiving some Lasix since 10/25 secondary to some edema in her left lower leg. Due to the abnormal labs and the need for medical management. The patient was transitioned back to the medical portion of the hospital for continued care. The patient denies any chest pain. Denies any shortness of breath. Denies any fever, but does have a complains of being chilled. She does have generalized muscular twitching noted in her extremities and trunk, she is alert, cooperative and a fairly good historian but does have moments to where she does not remember current situation or what is going on. The patient denies taking any recent antacids, denies any bouts of confusion denies any weight gain or weight loss. MEDICAL HISTORY Bipolar anxiety disorder for many years with multiple inpatient psychiatric admissions, hypertension, diabetes type 2, deep venous thrombosis, cerebrovascular accident without residual effect, right club foot. PAST SURGICAL HISTORY: 1. Exploratory laparoscopy. 2. Right foot surgery. 3. Most of the history is being obtained from the record. ALLERGIES MOTRIN PENICILLIN SULFA MEDICATIONS: 1. Depakote 2. Lopressor. 3. Zyprexa. 4. Sulfasalazine 5. Normal saline. 6. D5w injection. 7. Glucagon injection. SOCIAL HISTORY The patient has a daughter who has struggled with a brain tumor and some physical illness during her life. The patient is a nonsmoker, no ethyl alcohol and no illicit drugs. 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 She was in 2008, and due to her club foot walks with assisted devices. FAMILY HISTORY: Noncontributory PHYSICAL EXAMINATION VITAL SIGNS: No documented yet. GENERAL: Well-nourished white female looks to be her stated age resting on the bed. She is alert, oriented, cooperative and talkative. HEAD, EYES, EARS, NOSE, AND THROAT: Atraumatic, normocephalic. Pupils equal, round, reactive to light and accommodation 3, moist mucous membranes pink and moist. NECK: The Neck is supple. CARDIOVASCULAR SYSTEM: Cardiovascular heart sounds S1-S2. No murmurs, rubs or gallops. The patient has a trace to 1+ edema noted in her left leg. No edema in a right leg. PULMONARY: essentially clear anteriorly and posteriorly with no wheezes, rales or rhonchi. ABDOMEN: The abdomen is round, soft, nontender, nondistended. Active bowel sounds. MUSCULOSKELETAL: Right clubfoot, moves her extremities with purpose. She has equal hand db2 dba. NEUROLOGIC: Neurologically; Currently alert and a fair historian. Speech is clear. PSYCHIATRIC: Mood is appropriate with no anxiety. DIAGNOSTIC DATA Previous labs for labs of withdrawal [id number] this morning WBC count 4.2, RBC 3.72, hemoglobin 10.5, hematocrit 31, RDW 17.4. Differential shows her neutrophil bands to be elevated monocytes to be elevated. Normal platelet estimate. Chemistry sodium 138, potassium 3.5, chloride 100, carbon dioxide 30, amnion gap eight, BUN 41, creatinine 2.88, GFR 16, random glucose 48, hemoglobin A1c 6.1, calcium 12.7 corrected 12.3, AST 10, total creatinine kinase 286, albumin 2.4, LDL cholesterol 117 vitamin D level 12.6. All other numbers are normal. Vascular ultrasound is pending. ASSESSMENT/PLAN Acute renal failure with hypercalcemia, anemia, and insulin dependent diabetes type 2 with hypoglycemia, history of hypertension, Bipolar and anxiety disorders. PLAN: Our plan is to currently monitor with the medical floor inpatient status. We will reconcile what medications are warranted. We will consult psychiatry to continue her treatment and follow her and consult nephrology for their expert opinion with her current abnormal labs and renal failure. The patient was evaluated for any urinary retention. She has a catheter in voided with about 200 to 300 cc of urine, clear yellow, she was given glucagon for her hypoglycemia and before transferred to the floor she was 150. We will monitor her Accu-Chek's a.c. and Hs with sliding scale, monitor labs in the morning. We will monitor intake and output, check her parathyroid level and her phosphorus level. All this was explained to the patient any questions were answered. We will continue to follow. Thank you very much Dictated by JOHN Mcdaniels MD RUPERTO Cordova/annmarie /5:39 PM /9:14 AM PT is seen & Examined chart Reviewed d/w PT d/w Renetta d/w Dr Andrew see Orders see H&P will f/u Giovani Purcell MD Nov 01, 2016 17:36 MTDD
--- NOTE | 2016-11-02 09:25 | HHI.NPPN ---
Subjective Renal Failure: Acute Interval History Resting in bed, sitter at bedside. Renal function is better. (Verónica Lincoln) Review of Systems General General Remarks no acute complaints (Verónica Lincoln) Objective Data Data 11/01/16 11/02/16 19:00 07:00 Intake Total 611 ml 3900 ml Output Total 750 ml 2500 ml Balance -139 ml 1400 ml Intake Oral 420 ml 900 ml IV Total 191 ml 3000 ml Output Urine Total 750 ml 2500 ml # Bowel Movements 0 0 Vital Signs Date Time Temp Pulse Resp B/P Pulse Ox O2 Delivery O2 Flow Rate FiO2 11/02/16 04:00 98.2 78 20 117/71 99 11/02/16 00:00 98.4 76 20 115/66 94 11/01/16 20:00 98.4 86 20 123/89 94 11/01/16 20:00 98.0 86 22 123/89 94 (Verónica Lincoln) -: 11/02/16 0510 11/02/16 0510 Microbiology 11/01/16 Urine Culture, Received Pending Tubes & Lines: Evangelista (Verónica Lincoln) Physical Exam General Appearance: Well Developed, Well Nourished, No Acute Distress, Comfortable ( Verónica Lincoln) Throat Throat Exam: Oral Mucosa [place] & Moist (Verónica Lincoln) Pulmonary Resp Exam: Clear Bilaterally, Breath Sounds Equal (Verónica Lincoln) Cardiology CV Exam: Regular, Normal Sinus Rhythm, Good Perfusion (Verónica Lincoln) Gastrointestinal/Abdomen GI Exam: Soft, Non-Tender, Bowel Sounds Present (Verónica Lincoln) Musculoskeletal MS Exam: Joints Intact, Normal Tone (Verónica Lincoln) Integumentary Skin Exam: Clear, Warm, Dry, Intact (Verónica Lincoln) Extremeties Extremities Exam: Pedal Pulses Palpable, Trace Edema (Verónica Lincoln) Neurologic Neuro Exam: Alert, Awake, Oriented, Speech Clear, Moving All Extremities ( Verónica Lincoln) Psychiatric Psych Exam: Appropriate Responses (Verónica Lincoln) Assessment/Plan Discussed Condition With: Patient Problem List: (1) Acute renal failure Plan: In a pt with normal renal function at baseline KANCHAN from suspected overdiuresis, Lasix has been held she is hypercalcemic, see below continue IVF @ 125 cc/hr non oliguric, will have evangelista removed today asymptomatic UTI, culture in progress, she does not require treatment at this time quantify proteinuria monitor renal function, urine output measurement avoid nephrotoxic substances daily renal panel (2) Hypercalcemia Plan: due to acute renal failure secondary to intravascular volume depletion; she was also on oral vitamin D replacement PTH appropriately low continue IVF, hold vitamin D repeat labs in am (3) Hypertension Plan: BP stable continue metoprolol avoid ACEI and diuretics until renal failure resolves (Verónica Lincoln) Plan patient was seen and examined. Renal function is better. Hypercalcemia has improved. Continue IVF. (Thor Andrew MD) Verónica Lincoln Nov 02, 2016 09:25 Thor Andrew MD Nov 02, 2016 17:23
[2016-11-02] MEDS: THIOTHIXENE 10 MG CAP PO SCH ×2 (09:28→16:00)
[2016-11-02] MEDS: METOPROLOL TARTRATE 25 MG TAB PO SCH ×2 (09:28→20:26)
--- NOTE | 2016-11-02 14:38 | HHI.PR ---
Subjective Remarks sleeping today responds to verbal stimuli no tremors no pain tired sensation (Renetta Potts) Objective Objective Results - Vital Signs Date Time Temp Pulse Resp B/P Pulse Ox O2 Delivery O2 Flow Rate FiO2 11/02/16 11:00 98.3 65 20 116/74 98 11/02/16 07:00 97.3 85 20 126/81 95 11/02/16 04:00 98.2 78 20 117/71 99 11/02/16 00:00 98.4 76 20 115/66 94 11/01/16 20:00 98.4 86 20 123/89 94 11/01/16 20:00 98.0 86 22 123/89 94 I/O 11/01/16 11/01/16 11/01/16 11/02/16 11/02/16 11/02/16 07:00 15:00 23:00 07:00 15:00 23:00 Intake Total 611 ml 3900 ml Output Total 750 ml 2500 ml Balance -139 ml 1400 ml Intake Oral 420 ml 900 ml IV Total 191 ml 3000 ml Output Urine Total 750 ml 2500 ml # Bowel Movements 0 0 (Renetta Potts) Result Diagram: 11/02/16 0510 11/02/16 0510 ROS General: Fatigue, Weakness, Other (10 point ROS done. Tired sensation, other heaton negative symptoms) /DRESS OPERATOR: Other (evangelista) Neuro/MS: Other (tired) (Renetta Potts) Physical Exam Physical Exam PHYSICAL EXAMINATION GENERAL: This is a well-developed, well-nourished female who appears to be in no acute distress. She is sleeping, but arouses HEAD: Normocephalic without any lesion or mass noted. Facial features appear symmetric. OROPHARYNGEAL: Oropharynx without erythema or edema. NECK: Supple. No nuchal rigidity or lymphadenopathy. Trachea midline without deviation. CARDIAC: Regular rhythm, regular rate, S1 and S2 are heard. LUNGS: Clear to auscultation bilaterally. ABDOMEN: Soft, nontender, no organomegaly or masses. Bowel sounds are heard in all four quadrants. EXTREMITIES: no edema. NEUROLOGICAL: Patient mood and affect appropriate. No focal tremors SKIN:Warm and moist Objective Remarks Im just tired today (Renetta Potts) A/P Assessment and Plan Acute renal failure , IV hydration, nephrology consult appreciate following. evangelista for accurate I&O hypercalcemia, due to acute renal failure secondary to intravascular volume depletion; monitor labs PTH appropriately low, hold vit D , repeat labs in am anemia, secondary to chronic disease, stable, monitor insulin dependent diabetes type 2 SS with accu ck. no further hypoglycemia hypertension medical management, stable vitals reviewed. avoid leif inhibitors Bipolar and anxiety psy monitor meds. disorders. UTI, start Rocephin IV Discussed With: Nurse, Family (pt,), Other (dr. purcell, seen on his behalf) ( Renetta Potts) Assessment and Plan pt is seen & examined d/w PT d/w renetta prieto above f/u renal function (Elicia Purcell MD) Renetta Potts Nov 02, 2016 14:38 Elicia Purcell MD Nov 02, 2016 14:52
[2016-11-02] MEDS ORDERED: cefTRIAXone INJ 1,000 MG in SODIUM CHLORIDE 0.9% INJ 100 ML IV SCH (15:00)
--- NOTE | 2016-11-02 20:16 | HHI.PYPN ---
Subjective Remarks Patient was seen for psychiatric reevaluation in the medical floor. She was found having her lunch, calm, cooperative and pleasant. She reports good mood, states "I am happy, ready to go back home with my daughter". She denies depressive symptoms, denies anhedonia, hopelessness, helplessness, worthlessness , reports good appetite, good levels of energy and concentration. She denies SI/ HI/VH/AH. During evaluation no disorganized behavior or agitation, no delusions , no paranoia, no manic symptoms are elicited. Patient has been compliant with medications, with positive response and no reported side effects. Review of Systems Other No somatic complains Objective Alert: Yes [place]: Person, Place, Date, Situation Mood: Happy Affect: Euthymic Memory Intact: Immediate, Recent, Remote Hallucinations: Other (She denies ) Delusions: No Delusion Type: Other (No ilicited ) Suicidal: Ideation (She denies) Homicidal: Ideation (She denies) Insight/Judgment good Labs Test 11/01/16 11/02/16 21:38 05:10 Haptoglobin 135 MG/DL Total Bilirubin 0.3 MG/DL Lactate Dehydrogenase 98 U/L Total Protein 7.4 GM/DL 6.6 GM/DL White Blood Count 4.6 TH/MM3 Red Blood Count 3.39 MIL/MM3 Hemoglobin 9.5 GM/DL Hematocrit 28.3 % Mean Corpuscular Volume 83.4 FL Mean Corpuscular Hemoglobin 28.1 PG Mean Corpuscular Hemoglobin 33.7 % Concent Red Cell Distribution Width 17.6 % Platelet Count 170 TH/MM3 Mean Platelet Volume 8.9 FL Sodium Level 138 MEQ/L Potassium Level 3.8 MEQ/L Chloride Level 104 MEQ/L Carbon Dioxide Level 25.9 MEQ/L Anion Gap 8 MEQ/L Blood Urea Nitrogen 37 MG/DL Creatinine 2.48 MG/DL Estimat Glomerular Filtration 19 ML/MIN Rate Random Glucose 66 MG/DL Calcium Level 11.7 MG/DL Protein Corrected Calcium 12.2 MG/DL Phosphorus Level 4.3 MG/DL Parathyroid Hormone (Intact) 3.8 PG/ML Date/Time Procedure Status Source Growth 11/01/16 16:30 Urine Culture - Preliminary Resulted Urine Clean Catch Gram Negative Khai Vitals/IOs Vital Signs Date Time Temp Pulse Resp B/P Pulse Ox O2 Delivery O2 Flow Rate FiO2 11/02/16 15:00 97.9 68 20 118/80 100 Intake and Output 11/01/16 11/01/16 11/02/16 08:00 16:00 00:00 Intake Total 611 ml Output Total 750 ml Balance -139 ml Assessment & Plan Problem List: (1) Bipolar affective disorder, current episode manic with psychotic symptoms Assessment & Plan: Continue current psychotropic regimen, no changes. Patient is psychiatrically stable to continue medical care, immediate intervention needed. Continue psychiatric care as outpatient. ICD Code: F31.2 Assessment & Plan Estimated LOS: days Justification for Cont. Inpt. Patient does not meet criteria for involuntary admission in psychiatry at this moment. Anatoliy Garrett MD Nov 02, 2016 20:16
[2016-11-02] MEDS: DIVALPROEX SODIUM E.R. 500 MG TAB PO SCH (20:26)
[2016-11-02] MEDS: OLANZapine ODT 20 MG TAB PO SCH (20:31)
[2016-11-02 21:57] LABS: MICRO ALBUMIN RANDOM URINE RAW 18.5 MG/L (0.0-30.0)
[2016-11-03] VITALS (27 sets, daily range): BP systolic 108–146; BP diastolic 71–81; PULSE 64–89; RESP 16–18; TEMP 96.6–98.6; O2SAT 97–100
[2016-11-03] MEDS: INSULIN ASPART SUPPLEMENTAL SCALE SQ SCH ×4 (05:40→20:57)
[2016-11-03 06:56] LABS: BICARBONATE 24.5 MEQ/L (21.0-32.0); POTASSIUM 3.5 MEQ/L (3.5-5.1)
[2016-11-03] MEDS: METOPROLOL TARTRATE 25 MG TAB PO SCH ×2 (08:27→20:57)
[2016-11-03] MEDS: THIOTHIXENE 10 MG CAP PO SCH ×2 (08:27→17:15)
[2016-11-03] MEDS: SODIUM CHLOR 0.9% 1000 ML INJ 1,000 ML IV SCH ×2 (08:29→18:20)
--- NOTE | 2016-11-03 10:33 | HHI.PR ---
Subjective Subjective Remarks leg swelling no cp no sob eating okay no acute changes overnight sitter at [facility] Review of Systems Constitutional Constitutional Remarks 12 point ROS completed, unreliable Vitals/Results Intake & Output 11/02/16 11/02/16 11/03/16 15:00 23:00 07:00 Intake Total 700 ml 1739 ml Output Total 2000 ml 500 ml Balance -1300 ml 1239 ml Intake Oral 700 ml 239 ml IV Total 1500 ml Output Urine Total 2000 ml 500 ml # Voids 2 # Bowel Movements 0 Vital Signs Vital Signs Date Time Temp Pulse Resp B/P Pulse Ox O2 Delivery O2 Flow Rate FiO2 11/03/16 09:00 86 11/03/16 08:00 89 11/03/16 08:00 96.6 89 16 135/73 97 11/03/16 07:48 75 11/03/16 06:01 72 11/03/16 05:01 64 11/03/16 04:01 73 11/03/16 03:01 11/03/16 03:01 97.7 76 18 108/79 98 11/03/16 03:01 77 11/03/16 02:01 69 11/03/16 01:03 69 11/03/16 00:01 69 11/02/16 23:01 98.1 78 18 116/66 94 11/02/16 23:01 78 11/02/16 22:01 90 11/02/16 21:01 89 11/02/16 20:01 74 11/02/16 19:01 97.7 83 18 113/67 95 11/02/16 19:01 75 11/02/16 15:00 97.9 68 20 118/80 100 11/02/16 11:00 98.3 65 20 116/74 98 CBC/BMP: 11/02/16 0510 11/03/16 0600 Lab Results Laboratory Tests Test 11/02/16 11/03/16 19:10 06:00 Urine Random Creatinine 16 MG/DL Urine Microalbumin/Creatinine 116 MG/G CRE Ratio Sodium Level 141 MEQ/L Potassium Level 3.5 MEQ/L Chloride Level 109 MEQ/L Carbon Dioxide Level 24.5 MEQ/L Anion Gap 8 MEQ/L Blood Urea Nitrogen 33 MG/DL Creatinine 2.35 MG/DL Estimat Glomerular Filtration 21 ML/MIN Rate Random Glucose 84 MG/DL Calcium Level 10.2 MG/DL Phosphorus Level 3.2 MG/DL Albumin 2.1 GM/DL Physical Exam General General Appearance: Well Developed, Well Nourished, No Acute Distress, Comfortable Eyes Eye Exam: Pupils Equal, Pupils Reactive Ears & Nose Ears & Nose Exam: Nasal Mucosa [place] Throat Throat Exam: Oral Mucosa [place] & Moist Neck Neck Exam: Neck Supple, Trachea Midline Pulmonary Resp Exam: Clear Bilaterally, Breath Sounds Equal Cardiology CV Exam: Regular, Normal Sinus Rhythm, Good Perfusion Gastrointestinal/Abdomen GI Exam: Soft, Non-Tender, Bowel Sounds Present, Non-Distended Musculoskeletal MS Exam: Joints Intact, Normal Tone Integumentary Skin Exam: Clear, Warm, Dry, Intact Extremeties Extremities Exam: Pedal Pulses Palpable, Moderate Edema Neurologic Neuro Exam: Alert, Awake, Oriented, Speech Clear, Moving All Extremities, No Focal Deficits Psychiatric Psych Exam: Appropriate Responses VTE Prophylaxis VTE Prophylaxis Device: SCDs Assessment/Plan Problem List: (1) Hypercalcemia (2) Acute renal failure (3) HX LEFT LEG DVT (4) Non-insulin dependent type 2 diabetes mellitus (5) Hypertension (6) Bipolar disorder (7) Leg edema (8) Anxiety (9) Depression (10) UTI (urinary tract infection) Assessment/Plan continue IVF NS at 125/hr creat improving slowly SEBASTIEN likely due to overdiuresis Off Lasix now follow BMP daily Calcium improving, off PO supplements continue IVF continue with TEDs for leg edema, elevate Accuchecks AC/HS with ISS continue psych meds sitter at [facility] following BP management, stable labs reviewed, improving D/W RN D/W Dr. Purcell D/W pt This patient was seen by myself and Dr. Purcell, this note is written on his behalf. Problem Qualifiers (1) Acute renal failure: Qualified Code: N17.9 - Acute renal failure, unspecified acute renal failure type (2) Hypertension: Qualified Code: I10 - Essential hypertension (3) Bipolar disorder: Qualified Code: F31.9 - Bipolar affective disorder, remission status unspecified (4) Leg edema: Qualified Code: R60.0 - Bilateral edema of lower extremity (5) Depression: Qualified Code: F32.9 - Depression, unspecified depression type Emerald [place] Nov 03, 2016 10:33
[2016-11-03] MEDS ORDERED: FUROSEMIDE 40 MG TAB PO ONE (11:30)
--- NOTE | 2016-11-03 11:48 | HHI.HP ---
History of Present Illness Service Family Medicine Primary Care Physician Abdoulaye Barclay, DO Admission Diagnosis Abnormal labs, hypercalcemia, and ARF Diagnoses: (1) Bipolar disorder (2) Hypercalcemia (3) Acute renal failure (4) Hypertension History of Present Illness Patient is a very pleasant 66 year old female who has been inpatient psychiatric floor for Bipolar disease management. She has been a [facility] patient of Dr. Kelly however not followed on the psychiatric floor by our service. Routine blood work showed a elevation in serum creatinine 2.88 BUN 41 , and Calcium for 12.7. Patient reported that she was feeling tired over the last week. She has also been on Lasix for lower extremity edema. She was admitted to the medical portion for continued management and transferred to our service. Review of Systems Constitutional: COMPLAINS OF: Fatigue, DENIES: Fever, Chills Respiratory: DENIES: Wheezing, Sputum production, Shortness of breath Cardiovascular: DENIES: Chest pain, Palpitations, Lower Extremity Edema Gastrointestinal: DENIES: Abdominal pain, Constipation, Diarrhea, Nausea Neurologic: DENIES: Headache Past Family Social History Allergies: Coded Allergies: Motrin (Verified Allergy, Severe, HIVES, 10/03/15) Penicillin (Verified Allergy, Severe, HIVES, 10/03/15) Sulfa (Verified Allergy, Severe, Hives, 10/03/15) Past Medical History Bipolar disorder HTN Type 2 diabetes CVA Right club foot DVT Past Surgical History EXP lap Right foot surgery Reported Medications Vital Signs Date Time Temp Pulse Resp B/P Pulse Ox O2 Delivery O2 Flow Rate FiO2 11/03/16 11:03 97.8 78 16 113/73 100 11/03/16 10:00 89 11/03/16 09:00 86 11/03/16 08:00 89 11/03/16 08:00 96.6 89 16 135/73 97 11/03/16 07:48 75 11/03/16 06:01 72 11/03/16 05:01 64 11/03/16 04:01 73 11/03/16 03:01 11/03/16 03:01 97.7 76 18 108/79 98 11/03/16 03:01 77 11/03/16 02:01 69 11/03/16 01:03 69 11/03/16 00:01 69 11/02/16 23:01 98.1 78 18 116/66 94 11/02/16 23:01 78 11/02/16 22:01 90 11/02/16 21:01 89 11/02/16 20:01 74 11/02/16 19:01 97.7 83 18 113/67 95 11/02/16 19:01 75 11/02/16 15:00 97.9 68 20 118/80 100 Active Ordered Medications Current Medications Medications (Trade) Dose Ordered Sig/Valentina Route Start Time Stop Time Status Last Admin (Depakote Er) 1,000 mg HS PO 11/01/16 21:00 11/02/16 20:26 (Lopressor) 12.5 mg Q12HR PO 11/01/16 21:00 11/03/16 08:27 (ZyPREXA ZYDIS ODT) 20 mg HS PO 11/01/16 21:00 11/02/16 20:31 Thiothixene 10 mg 10 mg DAILY@08,16 PO 11/02/16 08:00 11/03/16 08:27 (NS 1000 ml Inj) 1,000 ml @ 125 mls/hr Q8H IV 11/01/16 16:30 11/03/16 08:29 (D50w (Vial) Inj) 25 ml UNSCH PRN IV PUSH 11/01/16 16:30 Glucagon 1 mg 1 mg UNSCH PRN OTHER 11/01/16 16:30 (Rocephin Inj/NS Inj) 100 ml @ 200 mls/hr Q24H IV 11/02/16 15:00 UNV (Heparin Inj) 5,000 units Q12HR SQ 11/03/16 10:30 UNV Family History non contributory Social History Patient lives with her daughter. She has a hearing impaired daughter. The patient is on Social Security disability. She does not consume alcohol or illicit drugs. Physical Exam Vital Signs Vital Signs Date Time Temp Pulse Resp B/P Pulse Ox O2 Delivery O2 Flow Rate FiO2 11/03/16 11:03 97.8 78 16 113/73 100 11/03/16 10:00 89 11/03/16 09:00 86 11/03/16 08:00 89 11/03/16 08:00 96.6 89 16 135/73 97 11/03/16 07:48 75 11/03/16 06:01 72 11/03/16 05:01 64 11/03/16 04:01 73 11/03/16 03:01 11/03/16 03:01 97.7 76 18 108/79 98 11/03/16 03:01 77 11/03/16 02:01 69 11/03/16 01:03 69 11/03/16 00:01 69 11/02/16 23:01 98.1 78 18 116/66 94 11/02/16 23:01 78 11/02/16 22:01 90 11/02/16 21:01 89 11/02/16 20:01 74 11/02/16 19:01 97.7 83 18 113/67 95 11/02/16 19:01 75 11/02/16 15:00 97.9 68 20 118/80 100 Physical Exam GENERAL: This is a well-nourished, well-developed patient, in no apparent distress. SKIN: No rashes, ecchymoses or lesions. Cool and dry. HEAD: Atraumatic. Normocephalic. No temporal or scalp tenderness. CARDIOVASCULAR: Regular rate and rhythm without murmurs, gallops, or rubs. RESPIRATORY: Clear to auscultation. Breath sounds equal bilaterally. No wheezes , rales, or rhonchi. GASTROINTESTINAL: Abdomen soft, non-tender, nondistended. No guarding. MUSCULOSKELETAL: Extremities without cyanosis or edema. Negative Homans sign bilaterally. NEUROLOGICAL: Awake and alert. Normal speech. Laboratory Laboratory Tests Test 11/02/16 11/03/16 19:10 06:00 Urine Random Creatinine 16 Urine Microalbumin/Creatinine 116 Ratio Sodium Level 141 Potassium Level 3.5 Chloride Level 109 Carbon Dioxide Level 24.5 Anion Gap 8 Blood Urea Nitrogen 33 Creatinine 2.35 Estimat Glomerular Filtration 21 Rate Random Glucose 84 Calcium Level 10.2 Phosphorus Level 3.2 Albumin 2.1 Date/Time Procedure Status Source Growth 11/01/16 16:30 Urine Culture - Final Complete Urine Clean Catch Escherichia Coli Result Diagram: 11/02/16 0510 11/03/16 0600 Assessment and Plan Problem List: (1) Acute renal failure Status: Acute Plan: IV hydration. Nephrology consulted and managing. Preet for accurate I+ O. BUN 33 and creatinine at 2.35. Recheck in AM (2) Hypercalcemia Status: Acute Plan: CA improving at10.2. Continue IVF. PTH low Due most likely from volume depletion causing acute renal failure. to acute renal failure secondary to intravascular volume depletion. (3) Hypertension Status: Acute Plan: Continue current treatment well controlled (4) Bipolar disorder Status: Acute Plan: Managed per psych. Patient is cooperative sitter at bedside (5) Non-insulin dependent type 2 diabetes mellitus Status: Chronic Plan: Glucose 84 this AM. Diet controlled. (6) UTI (urinary tract infection) Status: Acute Plan: On ceftriaxone IV. Culture sensitive. Assessment and Plan Assessment and plan discussed with Dr. Barclay Problem Qualifiers (1) Bipolar disorder: Qualified Code: F31.9 - Bipolar affective disorder, remission status unspecified (2) Acute renal failure: Qualified Code: N17.9 - Acute renal failure, unspecified acute renal failure type (3) Hypertension: Qualified Code: I10 - Essential hypertension Odette Khoury [facility] Nov 03, 2016 11:48
[2016-11-03] MEDS: HEPARIN SODIUM - SQ 10,000 UNITS/ML VIAL SQ SCH (12:45)
[2016-11-03 13:12] LABS: ALBUMIN SPE 3.04 GM/DL (3.50-5.00); ALPHA 1 GLOBULIN 0.28 GM/DL (0.11-0.29); ALPHA 2 GLOBULIN 0.8 GM/DL (0.22-1.00); BETA GLOBULINS (SPE) 0.84 GM/DL (0.53-1.03)
[2016-11-03] MEDS: AZTREONAM 1,000 MG/NS 100 ML IV SCH ×2 (17:15)
[2016-11-03] MEDS: OLANZapine ODT 20 MG TAB PO SCH (20:58)
[2016-11-03] MEDS: DIVALPROEX SODIUM E.R. 500 MG TAB PO SCH (20:58)
[2016-11-04] VITALS (28 sets, daily range): BP systolic 118–136; BP diastolic 72–79; PULSE 63–100; RESP 18–20; TEMP 97.6–99.5; O2SAT 95–100
[2016-11-04] MEDS: HEPARIN SODIUM - SQ 10,000 UNITS/ML VIAL SQ SCH ×2 (00:25→11:36)
[2016-11-04] MEDS: AZTREONAM 1,000 MG/NS 100 ML IV SCH ×4 (04:51→16:19)
[2016-11-04] MEDS: INSULIN ASPART SUPPLEMENTAL SCALE SQ SCH ×4 (06:12→21:00)
[2016-11-04 06:59] LABS: AUTOMATED NEUTROPHIL # 1.8 TH/MM3 (1.8-7.7); BASOPHIL % 0.9 % (0.0-2.0); EOSINOPHIL # 0.1 TH/MM3 (0-0.4); EOSINOPHIL % 1.7 % (0.0-4.0); HEMATOCRIT 29.4 % (35.0-46.0); HEMO FLAGS DIFF FINAL; LYMPH % 27.9 % (9.0-44.0); MEAN CELL VOLUME 83.7 FL (80.0-100.0); MEAN CORPUSCULAR HEMOGLOBIN 28.1 PG (27.0-34.0); MEAN CORPUSCULAR HGB CONC 33.5 % (32.0-36.0); MONO % 20.5 % (0.0-8.0); PLATELET COUNT 161 TH/MM3 (150-450); RED BLOOD COUNT 3.51 MIL/MM3 (4.00-5.30); RED CELL DISTRIBUTION WIDTH 17.7 % (11.6-17.2); WHITE BLOOD COUNT 3.6 TH/MM3 (4.0-11.0)
[2016-11-04 07:26] LABS: BICARBONATE 24.2 MEQ/L (21.0-32.0); MAGNESIUM 2.1 MG/DL (1.5-2.5); POTASSIUM 3.5 MEQ/L (3.5-5.1)
[2016-11-04 07:28] LABS: CALCIUM-PROTEIN CORRECTED 9.9 MG/DL (8.5-10.1)
[2016-11-04] MEDS: SODIUM CHLOR 0.9% 1000 ML INJ 1,000 ML IV SCH ×3 (08:30→16:30)
[2016-11-04] MEDS: THIOTHIXENE 10 MG CAP PO SCH ×2 (08:31→16:14)
[2016-11-04] MEDS: METOPROLOL TARTRATE 25 MG TAB PO SCH ×2 (08:32→21:04)
--- NOTE | 2016-11-04 09:57 | HHI.NPPN ---
Subjective Renal Failure: Acute Interval History Renal function is better. No acute concerns. (Verónica Lincoln) Review of Systems General General Remarks no acute complaints (Verónica Lincoln) Objective Data Data 11/03/16 11/04/16 19:00 07:00 Intake Total 2046 ml 360 ml Balance 2046 ml 360 ml Intake Oral 850 ml 360 ml IV Total 1196 ml # Voids 5 4 # Bowel Movements 0 1 Vital Signs Date Time Temp Pulse Resp B/P Pulse Ox O2 Delivery O2 Flow Rate FiO2 11/04/16 09:37 99 11/04/16 08:15 75 11/04/16 07:15 63 11/04/16 07:00 98.8 75 18 118/74 95 11/04/16 06:21 63 11/04/16 05:44 75 11/04/16 04:01 70 11/04/16 03:41 97.9 77 18 125/74 98 11/04/16 03:00 75 11/04/16 02:48 72 11/04/16 01:17 70 11/04/16 00:17 71 11/03/16 23:36 97.4 77 18 138/71 98 11/03/16 23:14 75 11/03/16 22:57 75 11/03/16 21:00 75 11/03/16 20:00 75 11/03/16 19:55 98.6 79 18 141/75 98 11/03/16 19:00 75 11/03/16 18:32 87 11/03/16 17:33 71 11/03/16 16:21 71 11/03/16 15:00 72 11/03/16 15:00 97.5 77 16 146/81 100 11/03/16 14:06 76 11/03/16 13:00 76 11/03/16 12:08 73 11/03/16 11:27 75 11/03/16 11:03 97.8 78 16 113/73 100 11/03/16 10:00 89 (Verónica Lincoln) -: 11/04/16 0554 11/04/16 0554 Physical Exam General Appearance: Well Developed, Well Nourished, No Acute Distress, Comfortable ( Verónica Lincoln) Eyes Eye Exam: Pupils Equal, Pupils Reactive (Verónica Lincoln) Ears & Nose Ears & Nose Exam: Nasal Mucosa [place] (Verónica LincolnP) Throat Throat Exam: Oral Mucosa [place] & Moist (Verónica Lincoln) Neck Neck Exam: Neck Supple, Trachea Midline (Verónica LincolnP) Pulmonary Resp Exam: Clear Bilaterally, Breath Sounds Equal (Verónica LincolnP) Cardiology CV Exam: Regular, Normal Sinus Rhythm, Good Perfusion (Verónica LincolnP) Gastrointestinal/Abdomen GI Exam: Soft, Non-Tender, Bowel Sounds Present, Non-Distended (Verónica Lincoln) Musculoskeletal MS Exam: Joints Intact, Normal Tone (Verónica Lincoln) Integumentary Skin Exam: Clear, Warm, Dry, Intact (Verónica Lincoln) Extremeties Extremities Exam: Pedal Pulses Palpable, Moderate Edema (Verónica Lincoln) Neurologic Neuro Exam: Alert, Awake, Oriented, Speech Clear, Moving All Extremities, No Focal Deficits (Verónica Lincoln) Psychiatric Psych Exam: Appropriate Responses (Verónica Lincoln) VTE Prophylaxis Device: SCDs (Verónica Lincoln) Assessment/Plan Discussed Condition With: Patient Problem List: (1) Acute renal failure Plan: In a pt with normal renal function at baseline, suspected overdiuresis renal function improving hypercalcemia correcting, see below IVF rate decreased to 30cc/hr good urine output monitor renal function, urine output measurement avoid nephrotoxic substances daily renal panel she is stable for discharge from renal perspective (2) Hypercalcemia Plan: due to acute renal failure secondary to intravascular volume depletion; she was also on oral vitamin D replacement PTH appropriately low continue IVF repeat labs in am (3) Hypertension Plan: BP stable continue metoprolol avoid ACEI until renal failure resolves (Verónica Lincoln) Plan patient was seen and examined. Hypercalcemia has improved. Renal function has improved as well. Continue hydration. She can be discharged from renal standpoint. (Thor Andrew MD) Problem Qualifiers (1) Acute renal failure: Qualified Code: N17.9 - Acute renal failure, unspecified acute renal failure type (2) Hypertension: Qualified Code: I10 - Essential hypertension Verónica Lincoln Nov 04, 2016 09:57 Thor Andrew MD Nov 04, 2016 13:42
--- NOTE | 2016-11-04 16:11 | MB ---
cc: KARL FRAIRE MD DATE OF CONSULTATION 11/03/16 HISTORY OF PRESENT ILLNESS Ms. Hurley is a very pleasant 66-year-old white female with a history of bipolar disorder. She was found to have abnormal renal function and abnormal calcium and was transferred to medical floor for further evaluation. She has had mild fatigue but no chest pain, shortness of breath or peripheral edema. She was on Lasix for lower extremity edema. She was found to have sinus pauses up to over 6 seconds during sleep on telemetry. She has been on metoprolol for hypertension which has been held first time this morning. PAST MEDICAL HISTORY History of bipolar disorder, hypertension, type 2 diabetes mellitus, DVT, CVA, right club foot, history of exploratory laparoscopy, right foot surgery. MEDICATIONS Include: 1. Depakote. 2. Lopressor. 3. Zyprexa. 4. Sulfasalazine. ALLERGIES MOTRIN, PENICILLIN, SULFA. SOCIAL HISTORY The patient does not smoke. She does not drink alcohol. She is retired from [employer]. FAMILY HISTORY Negative for heart disease. REVIEW OF SYSTEMS Otherwise negative. PHYSICAL EXAMINATION VITAL SIGNS: Blood pressure 124/75, pulse 81 and regular. HEENT: Negative. NECK: 2+ carotid upstrokes. No bruits. LUNGS: Clear. HEART: Regular with no murmur or gallop. ABDOMEN: Soft. No bruit. EXTREMITIES: Without edema. 2+ distal pulses. NEUROLOGIC: Grossly nonfocal. Telemetry was reviewed and showed sinus rhythm and sinus pauses 2 to 6 seconds during sleep only, none during awake hours. LABORATORY DATA Hemoglobin 9.9, potassium 3.5, creatinine 2.48, 2.35 and 2.06. Calcium now is 9.9. DIAGNOSIS 1. Sinus pauses at night exacerbated by beta zeke. 2. Acute renal insufficiency. 3. Hypercalcemia. 4. Hypertension. 5. Type II diabetes mellitus. 6. Bipolar disorder. DISPOSITION Ms. Hurley will be monitored on telemetry. She has had pauses during sleeping hours. We will discontinue her metoprolol and if necessary, use another medications, for example amlodipine, for blood pressure control. There is no indication for permanent pacemaker at this time. I will follow her for cardiology during her hospitalization. MD GABO Mtz/BHARTI /2:28 PM /3:44 PM MTDTom
--- NOTE | 2016-11-04 18:44 | HHI.PR ---
Subjective Remarks pt appears stable psych heaton no anger hallucinations or paranoia does not express any suicidal ideation Objective Vital Signs Date Time Temp Pulse Resp B/P Pulse Ox O2 Delivery O2 Flow Rate FiO2 11/04/16 18:09 96 11/04/16 17:10 81 11/04/16 16:03 97.9 80 18 136/79 99 11/04/16 16:00 89 11/04/16 15:00 77 11/04/16 14:00 81 11/04/16 13:00 72 11/04/16 12:50 85 11/04/16 11:43 97.6 81 18 124/75 100 11/04/16 11:00 89 11/04/16 10:00 81 11/04/16 09:37 99 11/04/16 08:15 75 11/04/16 07:15 63 11/04/16 07:00 98.8 75 18 118/74 95 11/04/16 06:21 63 11/04/16 05:44 75 11/04/16 04:01 70 11/04/16 03:41 97.9 77 18 125/74 98 11/04/16 03:00 75 11/04/16 02:48 72 11/04/16 01:17 70 11/04/16 00:17 71 11/03/16 23:36 97.4 77 18 138/71 98 11/03/16 23:14 75 11/03/16 22:57 75 11/03/16 21:00 75 11/03/16 20:00 75 11/03/16 19:55 98.6 79 18 141/75 98 11/03/16 19:00 75 I/O 11/03/16 11/03/16 11/03/16 11/04/16 11/04/16 11/04/16 07:00 15:00 23:00 07:00 15:00 23:00 Intake Total 1739 ml 2046 ml 360 ml 1544 ml Output Total 500 ml Balance 1239 ml 2046 ml 360 ml 1544 ml Intake Oral 239 ml 850 ml 360 ml 850 ml IV Total 1500 ml 1196 ml 694 ml Output Urine Total 500 ml # Voids 2 5 4 4 # Bowel Movements 0 0 1 0 Result Diagram: 11/04/16 0554 11/04/16 0554 Other Results tele had 6 second pauses this early am 24 hour holter ordered cardiology consulted Objective Remarks GENERAL: Well-nourished, well-developed patient. SKIN: Warm and dry. HEAD: Normocephalic. EYES: No scleral icterus. No injection or drainage. NECK: Supple, trachea midline. No JVD or lymphadenopathy. CARDIOVASCULAR: Regular rate and rhythm without murmurs, gallops, or rubs. RESPIRATORY: Breath sounds equal bilaterally. No accessory muscle use. GASTROINTESTINAL: Abdomen soft, non-tender, nondistended. EXTREMITIES: No cyanosis, or edema. NEUROLOGICAL: Awake, alert, and oriented x 3. Non-focal.no psych deficits noted Medications and IVs Inpatient Medications Aztreonam/Sodium Chloride (Azactam Inj/NS Inj) 100 ml @ 200 mls/hr Q12H IV Last administered on 11/04/16 16:19; Start 11/03/16 at 17:00 Ceftriaxone Sodium/Sodium Chloride (Rocephin Inj/NS Inj) 100 ml @ 200 mls/hr Q24H IV ; Start 11/02/16 at 15:00; Stop 11/03/16 at 15:08; Status DC Dextrose (D50w (Vial) Inj) 25 ml UNSCH PRN IV PUSH HYPOGLYCEMIA-SEE COMMENTS; Start 11/01/16 at 16:30 Divalproex Sodium (Depakote Er) 1,000 mg HS PO Last administered on 11/03/16 20:58; Start 11/01/16 at 21:00 Furosemide 40 mg 40 mg ONCE ONCE PO Last administered on 11/03/16 12:44; Start 11/03/16 at 11:30; Stop 11/03/16 at 11:41; Status DC Glucagon (Glucagon Inj) 1 mg UNSCH PRN OTHER HYPOGLYCEMIA-SEE COMMENTS; Start 11/01/16 at 16:30 Heparin Sodium (Porcine) (Heparin Inj) 5,000 units Q12H SQ Last administered on 11/04/16 11:36; Start 11/03/16 at 12:00 Insulin Aspart 1 1 ACHS SLIDING SCALE SQ Last administered on 11/04/16 16:00 ; Start 11/01/16 at 21:00 Metoprolol Tartrate (Lopressor) 12.5 mg Q12HR PO Last administered on 20:57; Start 11/01/16 at 21:00 Olanzapine (ZyPREXA ZYDIS ODT) 20 mg HS PO Last administered on 11/03/16 20:58 ; Start 11/01/16 at 21:00 Sodium Chloride (NS 1000 ml Inj) 1,000 ml @ 30 mls/hr Q24H IV Last administered on 11/04/16 08:31; Start 11/01/16 at 16:30 Thiothixene 10 mg 10 mg DAILY@08,16 PO Last administered on 11/04/16 16:14; Start 11/02/16 at 08:00 Assessment and Plan Problem List: (1) Schizoaffective disorder, bipolar type Status: Acute (2) Hypercalcemia Status: Acute (3) Acute renal failure Status: Acute Assessment and Plan pt had six second pause on tele holter and card consult ordered pt a&o no anxiety or paranoia will consult psych re return to unit and dc 1on1 watch Discussed Condition With nursing Problem Qualifiers (1) Acute renal failure: Qualified Code: N17.9 - Acute renal failure, unspecified acute renal failure type Abdoulaye Barclay DO Nov 04, 2016 18:44
[2016-11-04] MEDS: OLANZapine ODT 20 MG TAB PO SCH (21:00)
[2016-11-04] MEDS: DIVALPROEX SODIUM E.R. 500 MG TAB PO SCH (21:04)
[2016-11-05] VITALS (24 sets, daily range): BP systolic 118–143; BP diastolic 65–79; PULSE 70–95; RESP 18–20; TEMP 97.7–98.7; O2SAT 96–100
[2016-11-05] MEDS: HEPARIN SODIUM - SQ 10,000 UNITS/ML VIAL SQ SCH ×2 (00:27→12:05)
[2016-11-05] MEDS: AZTREONAM 1,000 MG/NS 100 ML IV SCH ×4 (04:06→16:58)
[2016-11-05] MEDS: INSULIN ASPART SUPPLEMENTAL SCALE SQ SCH ×4 (06:20→20:08)
--- NOTE | 2016-11-05 08:16 | HHI.NPPN ---
Subjective Renal Failure: Acute Interval History patient was seen and examined. Sleepy, offers no complaints. Review of Systems General Constitutional: Fatigue General Remarks no acute complaints Objective Data Data 11/04/16 11/05/16 19:00 07:00 Intake Total 1544 ml 700 ml Balance 1544 ml 700 ml Intake Oral 850 ml 240 ml IV Total 694 ml 460 ml # Voids 4 3 # Bowel Movements 0 0 Vital Signs Date Time Temp Pulse Resp B/P Pulse Ox O2 Delivery O2 Flow Rate FiO2 11/05/16 07:00 72 11/05/16 06:00 76 11/05/16 05:00 72 11/05/16 04:00 83 11/05/16 03:00 72 11/05/16 03:00 98.5 84 20 118/70 96 11/05/16 02:00 76 11/05/16 01:00 82 11/05/16 00:00 80 11/04/16 23:00 90 11/04/16 23:00 98.2 84 18 121/72 97 11/04/16 22:00 94 11/04/16 21:00 96 11/04/16 20:00 98 11/04/16 19:00 99.5 100 20 126/79 96 11/04/16 19:00 100 11/04/16 18:09 96 11/04/16 17:10 81 11/04/16 16:03 97.9 80 18 136/79 99 11/04/16 16:00 89 11/04/16 15:00 77 11/04/16 14:00 81 11/04/16 13:00 72 11/04/16 12:50 85 11/04/16 11:43 97.6 81 18 124/75 100 11/04/16 11:00 89 11/04/16 10:00 81 11/04/16 09:37 99 11/04/16 08:15 75 -: 11/04/16 0554 11/04/16 0554 Physical Exam General Appearance: Well Developed, Well Nourished, No Acute Distress, Comfortable Eyes Eye Exam: Pupils Equal, Pupils Reactive Ears & Nose Ears & Nose Exam: Nasal Mucosa [place] Throat Throat Exam: Oral Mucosa [place] & Moist Neck Neck Exam: Neck Supple, Trachea Midline Pulmonary Resp Exam: Clear Bilaterally, Breath Sounds Equal Cardiology CV Exam: Regular, Normal Sinus Rhythm, Good Perfusion Gastrointestinal/Abdomen GI Exam: Soft, Non-Tender, Bowel Sounds Present, Non-Distended Musculoskeletal MS Exam: Joints Intact, Normal Tone Integumentary Skin Exam: Clear, Warm, Dry, Intact Extremeties Extremities Exam: Pedal Pulses Palpable, Moderate Edema Neurologic Neuro Exam: Alert, Awake, Oriented, Speech Clear, Moving All Extremities, No Focal Deficits Psychiatric Psych Exam: Appropriate Responses VTE Prophylaxis Device: SCDs Assessment/Plan Discussed Condition With: Patient Problem List: (1) Acute renal failure Plan: In a pt with normal renal function at baseline, suspected overdiuresis renal function had improved, monitor labs. hypercalcemia correcting, see below Continue hydration. good urine output. (2) Hypercalcemia Plan: due to acute renal failure secondary to intravascular volume depletion; she was also on oral vitamin D replacement PTH appropriately low continue IVF repeat labs in am (3) Hypertension Plan: BP stable continue metoprolol avoid ACEI until renal failure resolves Problem Qualifiers (1) Acute renal failure: Qualified Code: N17.9 - Acute renal failure, unspecified acute renal failure type (2) Hypertension: Qualified Code: I10 - Essential hypertension Thor Andrew MD Nov 05, 2016 08:16
[2016-11-05] MEDS: THIOTHIXENE 10 MG CAP PO SCH ×2 (09:13→15:44)
[2016-11-05] MEDS: METOPROLOL TARTRATE 25 MG TAB PO SCH (09:13)
[2016-11-05] MEDS: SODIUM CHLOR 0.9% 1000 ML INJ 1,000 ML IV SCH (09:18)
--- NOTE | 2016-11-05 11:29 | HHI.PR ---
Subjective Remarks pt appears stable psych heaton no anger hallucinations or paranoia await psych and cardiac clearence to dc home Objective Vital Signs Date Time Temp Pulse Resp B/P Pulse Ox O2 Delivery O2 Flow Rate FiO2 11/05/16 10:00 80 11/05/16 09:00 78 11/05/16 08:00 76 11/05/16 07:00 72 11/05/16 07:00 98.5 75 18 125/65 97 11/05/16 06:00 76 11/05/16 05:00 72 11/05/16 04:00 83 11/05/16 03:00 72 11/05/16 03:00 98.5 84 20 118/70 96 11/05/16 02:00 76 11/05/16 01:00 82 11/05/16 00:00 80 11/04/16 23:00 90 11/04/16 23:00 98.2 84 18 121/72 97 11/04/16 22:00 94 11/04/16 21:00 96 11/04/16 20:00 98 11/04/16 19:00 99.5 100 20 126/79 96 11/04/16 19:00 100 11/04/16 18:09 96 11/04/16 17:10 81 11/04/16 16:03 97.9 80 18 136/79 99 11/04/16 16:00 89 11/04/16 15:00 77 11/04/16 14:00 81 11/04/16 13:00 72 11/04/16 12:50 85 11/04/16 11:43 97.6 81 18 124/75 100 I/O 11/04/16 11/04/16 11/04/16 11/05/16 11/05/16 11/05/16 07:00 15:00 23:00 07:00 15:00 23:00 Intake Total 360 ml 1544 ml 700 ml Balance 360 ml 1544 ml 700 ml Intake Oral 360 ml 850 ml 240 ml IV Total 694 ml 460 ml # Voids 4 4 3 # Bowel Movements 1 0 0 Result Diagram: 11/04/16 0554 11/04/16 0554 Objective Remarks GENERAL: Well-nourished, well-developed patient. SKIN: Warm and dry. HEAD: Normocephalic. EYES: No scleral icterus. No injection or drainage. NECK: Supple, trachea midline. No JVD or lymphadenopathy. CARDIOVASCULAR: Regular rate and rhythm without murmurs, gallops, or rubs. RESPIRATORY: Breath sounds equal bilaterally. No accessory muscle use. GASTROINTESTINAL: Abdomen soft, non-tender, nondistended. EXTREMITIES: No cyanosis, or edema. NEUROLOGICAL: Awake, alert, and oriented x 3. Non-focal.no psych deficits noted Medications and IVs Inpatient Medications Aztreonam/Sodium Chloride (Azactam Inj/NS Inj) 100 ml @ 200 mls/hr Q12H IV Last administered on 11/05/16 04:06; Start 11/03/16 at 17:00 Ceftriaxone Sodium/Sodium Chloride (Rocephin Inj/NS Inj) 100 ml @ 200 mls/hr Q24H IV ; Start 11/02/16 at 15:00; Stop 11/03/16 at 15:08; Status DC Dextrose (D50w (Vial) Inj) 25 ml UNSCH PRN IV PUSH HYPOGLYCEMIA-SEE COMMENTS; Start 11/01/16 at 16:30 Divalproex Sodium (Depakote Er) 1,000 mg HS PO Last administered on 11/04/16 21:04; Start 11/01/16 at 21:00 Furosemide 40 mg 40 mg ONCE ONCE PO Last administered on 11/03/16 12:44; Start 11/03/16 at 11:30; Stop 11/03/16 at 11:41; Status DC Glucagon (Glucagon Inj) 1 mg UNSCH PRN OTHER HYPOGLYCEMIA-SEE COMMENTS; Start 11/01/16 at 16:30 Heparin Sodium (Porcine) (Heparin Inj) 5,000 units Q12H SQ Last administered on 11/05/16 00:27; Start 11/03/16 at 12:00 Insulin Aspart 1 1 ACHS SLIDING SCALE SQ Last administered on 11/04/16 16:00 ; Start 11/01/16 at 21:00 Metoprolol Tartrate (Lopressor) 12.5 mg Q12HR PO Last administered on 09:13; Start 11/01/16 at 21:00 Olanzapine (ZyPREXA ZYDIS ODT) 20 mg HS PO Last administered on 11/04/16 21:00 ; Start 11/01/16 at 21:00 Sodium Chloride (NS 1000 ml Inj) 1,000 ml @ 30 mls/hr Q24H IV Last administered on 11/05/16 09:18; Start 11/01/16 at 16:30 Thiothixene 10 mg 10 mg DAILY@08,16 PO Last administered on 11/05/16 09:13; Start 11/02/16 at 08:00 Assessment and Plan Problem List: (1) Schizoaffective disorder, bipolar type Status: Chronic (2) Hypercalcemia Status: Resolved (3) Acute renal failure Status: Resolved Assessment and Plan pt had six second pause on tele holter and card consult ordered pt a&o no anxiety or paranoia will consult psych re return to unit and dc 1on1 watch Discharge Planning to home with [facility] Problem Qualifiers (1) Acute renal failure: Qualified Code: N17.9 - Acute renal failure, unspecified acute renal failure type Abdoulaye Barclay DO Nov 05, 2016 11:29
--- NOTE | 2016-11-05 14:37 | PD.CARD.PN ---
Subjective Subjective Remarks No CP or SOB, feels well Objective Medications Current Medications Medications (Trade) Dose Ordered Sig/[place] Route Start Time Stop Time Status Last Admin (Depakote Er) 1,000 mg HS PO 11/01/16 21:00 11/04/16 21:04 (Lopressor) 12.5 mg Q12HR PO 11/01/16 21:00 11/05/16 09:13 (ZyPREXA ZYDIS ODT) 20 mg HS PO 11/01/16 21:00 11/04/16 21:00 Thiothixene 10 mg 10 mg DAILY@08,16 PO 11/02/16 08:00 11/05/16 09:13 (NS 1000 ml Inj) 1,000 ml @ 30 mls/hr Q24H IV 11/01/16 16:30 11/05/16 09:18 (D50w (Vial) Inj) 25 ml UNSCH PRN IV PUSH 11/01/16 16:30 (Glucagon Inj) 1 mg UNSCH PRN OTHER 11/01/16 16:30 Heparin Sodium (Porcine) 5000 units 5,000 units Q12H SQ 11/03/16 12:00 11/05/16 12:05 (Azactam Inj/NS Inj) 100 ml @ 200 mls/hr Q12H IV 11/03/16 17:00 11/05/16 04:06 Vital Signs / I&O Vital Signs Date Time Temp Pulse Resp B/P Pulse Ox O2 Delivery O2 Flow Rate FiO2 11/05/16 14:00 73 11/05/16 13:00 75 11/05/16 12:00 71 11/05/16 11:00 71 11/05/16 11:00 98.7 71 18 130/79 100 11/05/16 10:00 80 11/05/16 09:00 78 11/05/16 08:00 76 11/05/16 07:00 72 11/05/16 07:00 98.5 75 18 125/65 97 11/05/16 06:00 76 11/05/16 05:00 72 11/05/16 04:00 83 11/05/16 03:00 72 11/05/16 03:00 98.5 84 20 118/70 96 11/05/16 02:00 76 11/05/16 01:00 82 11/05/16 00:00 80 11/04/16 23:00 90 11/04/16 23:00 98.2 84 18 121/72 97 11/04/16 22:00 94 11/04/16 21:00 96 11/04/16 20:00 98 11/04/16 19:00 99.5 100 20 126/79 96 11/04/16 19:00 100 11/04/16 18:09 96 11/04/16 17:10 81 11/04/16 16:03 97.9 80 18 136/79 99 11/04/16 16:00 89 11/04/16 15:00 77 I/O 11/04/16 11/04/16 11/04/16 11/05/16 11/05/16 11/05/16 07:00 15:00 23:00 07:00 15:00 23:00 Intake Total 360 ml 1544 ml 700 ml Balance 360 ml 1544 ml 700 ml Intake Oral 360 ml 850 ml 240 ml IV Total 694 ml 460 ml # Voids 4 4 3 # Bowel Movements 1 0 0 Physical Exam GENERAL: In NAD SKIN: Warm and dry. HEAD: Normocephalic. EYES: No scleral icterus. No injection or drainage. NECK: Supple, trachea midline. No JVD or lymphadenopathy. CARDIOVASCULAR: Regular rate and rhythm without murmurs, gallops, or rubs. RESPIRATORY: Breath sounds equal bilaterally. No accessory muscle use. GASTROINTESTINAL: Abdomen soft, non-tender, nondistended. MUSCULOSKELETAL: No cyanosis, or edema. Laboratory Laboratory Tests Test 11/01/16 11/01/16 11/02/16 11/02/16 16:30 21:38 05:10 19:10 Urine Color LIGHT-YELLOW Urine Turbidity HAZY Urine pH 6.5 Urine Specific [place] 1.007 Urine Protein 30 mg/dL Urine Glucose (UA) NEG mg/dL Urine Ketones NEG mg/dL Urine Occult Blood NEG Urine Nitrite POS Urine Bilirubin NEG Urine Urobilinogen LESS THAN 2.0 MG/DL Urine Leukocyte Esterase LARGE Urine RBC LESS THAN 1 /hpf Urine WBC 44 /hpf Urine WBC Clumps RARE Urine Amorphous Sediment RARE Urine Bacteria MANY /hpf Microscopic Urinalysis Comment CULTURE INDICATED Haptoglobin 135 MG/DL Total Bilirubin 0.3 MG/DL Lactate Dehydrogenase 98 U/L Albumin/Globulin Ratio 0.70 Tvioz-4-Miofnpeww 0.28 GM/DL Dswxz-4-Ivcwvzzar 0.80 GM/DL Beta Globulins 0.84 GM/DL Gamma Globulins 2.43 GM/DL Electrophoresis Pathologist Comment Parathyroid Hormone (Intact) 3.8 PG/ML Urine Random Creatinine 16 MG/DL Urine Microalbumin/Creatinine 116 MG/G CRE Ratio Test 11/04/16 05:54 White Blood Count 3.6 TH/MM3 Red Blood Count 3.51 MIL/MM3 Hemoglobin 9.9 GM/DL Hematocrit 29.4 % Mean Corpuscular Volume 83.7 FL Mean Corpuscular Hemoglobin 28.1 PG Mean Corpuscular Hemoglobin 33.5 % Concent Red Cell Distribution Width 17.7 % Platelet Count 161 TH/MM3 Mean Platelet Volume 8.3 FL Neutrophils (%) (Auto) 49.0 % Lymphocytes (%) (Auto) 27.9 % Monocytes (%) (Auto) 20.5 % Eosinophils (%) (Auto) 1.7 % Basophils (%) (Auto) 0.9 % Neutrophils # (Auto) 1.8 TH/MM3 Lymphocytes # (Auto) 1.0 TH/MM3 Monocytes # (Auto) 0.7 TH/MM3 Eosinophils # (Auto) 0.1 TH/MM3 Basophils # (Auto) 0.0 TH/MM3 CBC Comment DIFF FINAL Differential Comment Sodium Level 140 MEQ/L Potassium Level 3.5 MEQ/L Chloride Level 107 MEQ/L Carbon Dioxide Level 24.2 MEQ/L Anion Gap 9 MEQ/L Blood Urea Nitrogen 27 MG/DL Creatinine 2.06 MG/DL Estimat Glomerular Filtration 24 ML/MIN Rate Random Glucose 83 MG/DL Calcium Level 9.9 MG/DL Protein Corrected Calcium 9.9 MG/DL Phosphorus Level 3.0 MG/DL Magnesium Level 2.1 MG/DL Total Protein 7.2 GM/DL Albumin 2.3 GM/DL Assessment and Plan Problem List: (1) Sinus pause (2) Acute renal failure (3) Hypercalcemia (4) Hypertension (5) Non-insulin dependent type 2 diabetes mellitus (6) Bipolar disorder Assessment and Plan No recurrent sinus pauses. Metoprolol discontinued, amlodipine added for HTN. Stable from cardiac standpoint. Increase activity. Problem Qualifiers (1) Acute renal failure: Qualified Code: N17.9 - Acute renal failure, unspecified acute renal failure type (2) Hypertension: Qualified Code: I10 - Essential hypertension (3) Bipolar disorder: Qualified Code: F31.9 - Bipolar affective disorder, remission status unspecified Erik Rodriguez MD Nov 05, 2016 14:37
--- NOTE | 2016-11-05 14:45 | HHI.PYPN ---
Subjective Remarks Patient seen today for psychiatric evaluation, she was found sleeping, easily arousable, reports good mood, says that she is ready to go home, denies depressive symptoms, denies suicidal or homicidal ideation, denies visual and auditory hallucinations. No paranoia, no mena, no psychosis, no disorganized behavior observed.. Review of Systems Other No somatic complaint Objective Alert: Yes [place]: Person, Place, Date, Situation Mood: Calm Affect: Euthymic Memory Intact: Immediate, Recent, Remote Hallucinations: Other (She denies ) Delusions: No Delusion Type: Other (No ilicited ) Suicidal: Ideation (She denies) Homicidal: Ideation (She denies) Insight/Judgment good Labs Date/Time Procedure Status Source Growth 11/01/16 16:30 Urine Culture - Final Complete Urine Clean Catch Escherichia Coli Vitals/IOs Vital Signs Date Time Temp Pulse Resp B/P Pulse Ox O2 Delivery O2 Flow Rate FiO2 11/05/16 14:00 73 11/05/16 11:00 98.7 18 130/79 100 Intake and Output 11/04/16 11/04/16 11/05/16 08:00 16:00 00:00 Intake Total 360 ml 1544 ml Balance 360 ml 1544 ml Assessment & Plan Problem List: (1) Bipolar affective disorder, current episode manic with psychotic symptoms Assessment & Plan: Continue current psychotropics, Depakote 1000 hs and Olanzapine 20 mg hs. brief supportive psychotherapy provided. Patient widely educated about the importance of being fully compliant with medications and psychiatric follow-up. Patient is psychiatric stable to be discharged back home with her daughter. ICD Code: F31.2 Assessment & Plan Estimated LOS: days Justification for Cont. Inpt. Patient does not need psychiatric hospitalization Anatoliy Garrett MD Nov 05, 2016 14:45
[2016-11-05] MEDS: amLODIPine BESYLATE 5 MG TAB PO SCH (15:42)
[2016-11-05] MEDS: DIVALPROEX SODIUM E.R. 500 MG TAB PO SCH (20:04)
[2016-11-05] MEDS: OLANZapine ODT 20 MG TAB PO SCH (21:00)
[2016-11-06] VITALS (18 sets, daily range): BP systolic 114–124; BP diastolic 69–79; PULSE 67–96; RESP 18–20; TEMP 98–98.4; O2SAT 99
[2016-11-06] MEDS: HEPARIN SODIUM - SQ 10,000 UNITS/ML VIAL SQ SCH ×2 (00:20→12:00)
[2016-11-06] MEDS: AZTREONAM 1,000 MG/NS 100 ML IV SCH ×2 (06:38)
[2016-11-06] MEDS: INSULIN ASPART SUPPLEMENTAL SCALE SQ SCH ×2 (07:00→11:00)
[2016-11-06 07:27] LABS: BICARBONATE 22.7 MEQ/L (21.0-32.0); POTASSIUM 3.6 MEQ/L (3.5-5.1)
--- NOTE | 2016-11-06 08:29 | HHI.NPPN ---
Subjective Renal Failure: Acute Interval History renal function and calcium have improved. Review of Systems General Constitutional: Fatigue General Remarks no acute complaints Objective Data Data 11/05/16 11/06/16 19:00 07:00 Intake Total 1280 ml 700 ml Balance 1280 ml 700 ml Intake Oral 850 ml 240 ml IV Total 430 ml 460 ml # Voids 2 3 # Bowel Movements 0 0 Vital Signs Date Time Temp Pulse Resp B/P Pulse Ox O2 Delivery O2 Flow Rate FiO2 11/06/16 08:00 73 11/06/16 08:00 98.2 86 20 124/78 99 11/06/16 07:00 79 11/06/16 06:00 67 11/06/16 05:25 90 11/06/16 04:27 90 11/06/16 04:00 98.0 85 20 117/79 99 11/06/16 03:00 87 11/06/16 02:02 96 11/06/16 01:00 91 11/06/16 00:01 91 11/06/16 00:00 98.0 89 20 117/69 99 11/05/16 23:00 95 11/05/16 22:00 88 11/05/16 21:00 88 11/05/16 20:00 88 11/05/16 20:00 97.7 86 20 143/79 99 11/05/16 19:00 86 11/05/16 18:00 88 11/05/16 17:00 80 11/05/16 16:00 78 11/05/16 15:00 79 11/05/16 15:00 98.4 70 18 131/75 100 11/05/16 14:00 73 11/05/16 13:00 75 11/05/16 12:00 71 11/05/16 11:00 71 11/05/16 11:00 98.7 71 18 130/79 100 11/05/16 10:00 80 11/05/16 09:00 78 -: 11/04/16 0554 11/06/16 0515 Physical Exam General Appearance: Well Developed, Well Nourished, No Acute Distress, Comfortable Eyes Eye Exam: Pupils Equal, Pupils Reactive Ears & Nose Ears & Nose Exam: Nasal Mucosa [place] Throat Throat Exam: Oral Mucosa [place] & Moist Neck Neck Exam: Neck Supple, Trachea Midline Pulmonary Resp Exam: Clear Bilaterally, Breath Sounds Equal Cardiology CV Exam: Regular, Normal Sinus Rhythm, Good Perfusion Gastrointestinal/Abdomen GI Exam: Soft, Non-Tender, Bowel Sounds Present, Non-Distended Musculoskeletal MS Exam: Joints Intact, Normal Tone Integumentary Skin Exam: Clear, Warm, Dry, Intact Extremeties Extremities Exam: Pedal Pulses Palpable, Moderate Edema Neurologic Neuro Exam: Alert, Awake, Oriented, Speech Clear, Moving All Extremities, No Focal Deficits Psychiatric Psych Exam: Appropriate Responses VTE Prophylaxis Device: SCDs Assessment/Plan Discussed Condition With: Patient Problem List: (1) Acute renal failure Plan: In a pt with normal renal function at baseline, suspected overdiuresis Renal function has improved. Hypercalcemia has improved as well. May taper off IVF. (2) Hypercalcemia Plan: due to acute renal failure secondary to intravascular volume depletion; she was also on oral vitamin D replacement PTH appropriately low continue IVF repeat labs in am (3) Hypertension Plan: BP stable continue metoprolol JENNIFER inhibitor can be restarted. Plan I will sign off at this time. Thanks. Problem Qualifiers (1) Acute renal failure: Qualified Code: N17.9 - Acute renal failure, unspecified acute renal failure type (2) Hypertension: Qualified Code: I10 - Essential hypertension Thor Andrew MD Nov 06, 2016 08:29
[2016-11-06] MEDS: amLODIPine BESYLATE 5 MG TAB PO SCH (08:49)
[2016-11-06] MEDS: THIOTHIXENE 10 MG CAP PO SCH (08:50)
--- NOTE | 2016-11-06 09:04 | HHI.DS ---
Discharge Summary Admission Date Nov 01, 2016 at 15:16 Discharge Date: Nov 06, 2016 Admitting Diagnosis acute renal insuffiency (1) Hypercalcemia Diagnosis: Secondary (2) Acute renal failure Diagnosis: Principal (3) HX LEFT LEG DVT (4) Non-insulin dependent type 2 diabetes mellitus Diagnosis: Secondary (5) Hypertension Diagnosis: Secondary (6) Bipolar disorder Diagnosis: Secondary (7) Leg edema Diagnosis: Secondary (8) Anxiety Diagnosis: Secondary (9) Depression Diagnosis: Secondary (10) UTI (urinary tract infection) Diagnosis: Secondary CBC/BMP: 11/04/16 0554 11/06/16 0515 Significant Findings Laboratory Tests Test 11/04/16 11/06/16 05:54 05:15 White Blood Count 3.6 TH/MM3 (4.0-11.0) Red Blood Count 3.51 MIL/MM3 (4.00-5.30) Hemoglobin 9.9 GM/DL (11.6-15.3) Hematocrit 29.4 % (35.0-46.0) Red Cell Distribution Width 17.7 % (11.6-17.2) Monocytes (%) (Auto) 20.5 % (0.0-8.0) Blood Urea Nitrogen 27 MG/DL (7-18) 22 MG/DL (7-18) Creatinine 2.06 MG/DL 1.65 MG/DL (0.50-1.00) (0.50-1.00) Estimat Glomerular Filtration 24 ML/MIN (>89) 31 ML/MIN (>89) Rate Calcium Level 10.2 MG/DL (8.5-10.1) Albumin 2.3 GM/DL 2.2 GM/DL (3.4-5.0) (3.4-5.0) Chloride Level 108 MEQ/L (98-107) Phosphorus Level 2.4 MG/DL (2.5-4.9) PE at Discharge GENERAL: Well-nourished, well-developed patient. SKIN: Warm and dry. HEAD: Normocephalic. EYES: No scleral icterus. No injection or drainage. NECK: Supple, trachea midline. No JVD or lymphadenopathy. CARDIOVASCULAR: Regular rate and rhythm without murmurs, gallops, or rubs. RESPIRATORY: Breath sounds equal bilaterally. No accessory muscle use. GASTROINTESTINAL: Abdomen soft, non-tender, nondistended. EXTREMITIES: No cyanosis, or edema. NEUROLOGICAL: Awake, alert, and oriented x 3. Non-focal.no psych deficits noted Pt Condition on Discharge: Good Discharge Disposition: Disch w/ Home Health Serv Discharge Instructions DIET: Follow Instructions for: Heart Healthy Diet Speech Therapy-Diet Recommenda: Regular Activities you can perform: Regular-No Restrictions Activities to avoid: Driving for 24 hrs, Strenuous Activity Additional Information dc home with [facility] dr rao this week Abdoulaye Rao DO Nov 06, 2016 09:04
[2016-11-06] MEDS ORDERED: DEPA500T3 PO (09:14)
[2016-11-06] MEDS ORDERED: THIO10CA PO (09:14)
[2016-11-06] MEDS ORDERED: AMLO5 PO (09:14)
[2016-11-06] MEDS ORDERED: ZYPR20TA PO (10:16)
[2016-11-06] MEDS ORDERED: MACR100C2 PO (10:16)
--- NOTE | 2016-11-06 15:24 | PD.CARD.PN ---
Subjective Subjective Remarks No CP or SOB, no dizziness, feels very well Objective Medications Current Medications Medications (Trade) Dose Ordered Sig/[place] Route Start Time Stop Time Status Last Admin (Depakote Er) 1,000 mg HS PO 11/01/16 21:00 11/05/16 20:04 (ZyPREXA ZYDIS ODT) 20 mg HS PO 11/01/16 21:00 11/05/16 21:00 Thiothixene 10 mg 10 mg DAILY@08,16 PO 11/02/16 08:00 11/06/16 08:50 (NS 1000 ml Inj) 1,000 ml @ 30 mls/hr Q24H IV 11/01/16 16:30 11/05/16 09:18 (D50w (Vial) Inj) 25 ml UNSCH PRN IV PUSH 11/01/16 16:30 (Glucagon Inj) 1 mg UNSCH PRN OTHER 11/01/16 16:30 Heparin Sodium (Porcine) 5000 units 5,000 units Q12H SQ 11/03/16 12:00 11/06/16 00:20 (Azactam Inj/NS Inj) 100 ml @ 200 mls/hr Q12H IV 11/03/16 17:00 11/06/16 06:38 (Norvasc) 5 mg DAILY PO 11/05/16 14:45 11/06/16 08:49 Vital Signs / I&O Vital Signs Date Time Temp Pulse Resp B/P Pulse Ox O2 Delivery O2 Flow Rate FiO2 11/06/16 14:00 80 11/06/16 13:00 82 11/06/16 12:00 84 11/06/16 11:26 98.4 86 18 114/72 99 11/06/16 11:00 79 11/06/16 10:00 80 11/06/16 09:00 83 11/06/16 08:00 73 11/06/16 08:00 98.2 86 20 124/78 99 11/06/16 07:00 79 11/06/16 06:00 67 11/06/16 05:25 90 11/06/16 04:27 90 11/06/16 04:00 98.0 85 20 117/79 99 11/06/16 03:00 87 11/06/16 02:02 96 11/06/16 01:00 91 11/06/16 00:01 91 11/06/16 00:00 98.0 89 20 117/69 99 11/05/16 23:00 95 11/05/16 22:00 88 11/05/16 21:00 88 11/05/16 20:00 88 11/05/16 20:00 97.7 86 20 143/79 99 11/05/16 19:00 86 11/05/16 18:00 88 11/05/16 17:00 80 11/05/16 16:00 78 I/O 11/05/16 11/05/16 11/05/16 11/06/16 11/06/16 11/06/16 07:00 15:00 23:00 07:00 15:00 23:00 Intake Total 700 ml 1280 ml 700 ml 630 ml Balance 700 ml 1280 ml 700 ml 630 ml Intake Oral 240 ml 850 ml 240 ml 480 ml IV Total 460 ml 430 ml 460 ml 150 ml # Voids 3 2 3 2 # Bowel Movements 0 0 0 0 Physical Exam GENERAL: In NAD SKIN: Warm and dry. HEAD: Normocephalic. EYES: No scleral icterus. No injection or drainage. NECK: Supple, trachea midline. No JVD or lymphadenopathy. CARDIOVASCULAR: Regular rate and rhythm without murmurs, gallops, or rubs. RESPIRATORY: Breath sounds equal bilaterally. No accessory muscle use. GASTROINTESTINAL: Abdomen soft, non-tender, nondistended. MUSCULOSKELETAL: No cyanosis, or edema. Laboratory Laboratory Tests Test 11/06/16 05:15 Sodium Level 140 MEQ/L Potassium Level 3.6 MEQ/L Chloride Level 108 MEQ/L Carbon Dioxide Level 22.7 MEQ/L Anion Gap 9 MEQ/L Blood Urea Nitrogen 22 MG/DL Creatinine 1.65 MG/DL Estimat Glomerular Filtration 31 ML/MIN Rate Random Glucose 74 MG/DL Calcium Level 9.9 MG/DL Phosphorus Level 2.4 MG/DL Albumin 2.2 GM/DL Assessment and Plan Problem List: (1) Sinus pause (2) Acute renal failure (3) Hypercalcemia (4) Hypertension (5) Non-insulin dependent type 2 diabetes mellitus (6) Bipolar disorder Assessment and Plan No new cardiac issues. No recurrent sinus pauses. Metoprolol discontinued, amlodipine added for HTN. Stable from cardiac standpoint. Increase activity. DC home, will schedule card f/u. Problem Qualifiers (1) Acute renal failure: Qualified Code: N17.9 - Acute renal failure, unspecified acute renal failure type (2) Hypertension: Qualified Code: I10 - Essential hypertension (3) Bipolar disorder: Qualified Code: F31.9 - Bipolar affective disorder, remission status unspecified Erik Rodriguez MD Nov 06, 2016 15:24
--- NOTE | 2016-11-06 22:48 | HM ---
Date Performed: 11/04/2016 Time Performed: 17:01:00 HOOKUP DATE: 11/04/16 05:01:00 PM Fri ANALYSIS START TIME: 11/04/2016 5:06:00 PM ANALYSIS END TIME: 11/05/2016 5:10:00 PM PATIENT AGE: 66 PATIENT HEIGHT PATIENT WEIGHT DRUG LIST PATIENT DIAGNOSIS: Palps TEST NARRATIVE: The patient's average heart rate was 82 BPM. Heart rates greater than 120 B PM were noted < 1% of the time. Heart rates less than 50 BPM were noted < 1% of the time. 3 paus es exceeding 2.0 seconds were noted. The longest pause of 3.1 seconds occurred at 05:25:31 AM Sat. 10 ventricular ectopics, which represented < 1% of the total beat count, were noted. The highest ventricular ectopic frequency occurred from 07:00 AM to 08:00 AM Sat. During this time 2 VE(s) occur red. Ventricular ectopics were observed as 10 isolated beat(s) only. No couplets or runs were noted . 5 supraventricular ectopics, which represented < 1% of the total beat count, were noted. The h ighest supraventricular ectopic frequency occurred from 08:00 AM to 09:00 AM Sat. During this time 1 SVE(s) occurred. No episodes of ST depression (defined as -1.0 mm or more) were noted in channel 1. No episodes of ST depression (defined as -1.0 mm or more) were noted in channel 2. No episodes of ST depression (defined as -1.0 mm or more) were noted in channel 3. TEST INTERPRETATION: Sinus rhythm Sinus tachycardia Sinus bradycardia PVCs PACs, some nonconducted Signed by : Erik Rodriguez
== END 2016-11-06 16:09 | disposition home health service (06) | DRG 683 ==
LOC: HCIN 15:16
PROVIDERS: ADMIT Family Medicine; ATTEND Family Medicine
DX: N17.9 Acute kidney failure, unspecified (principal); N39.0 Urinary tract infection, site not specified; B96.20 Unspecified Escherichia coli [E. coli] as the cause of diseases classified elsewhere; E11.649 Type 2 diabetes mellitus with hypoglycemia without coma; Z79.4 Long term (current) use of insulin; F31.2 Bipolar disorder, current episode manic severe with psychotic features; I10 Essential (primary) hypertension; F41.9 Anxiety disorder, unspecified; E83.52 Hypercalcemia; R60.0 Localized edema; D64.9 Anemia, unspecified; Q66.89 Other specified congenital deformities of feet; Z86.718 Personal history of other venous thrombosis and embolism; Z86.73 Personal history of transient ischemic attack (TIA), and cerebral infarction without residual deficits
CPT/HCPCS: 76937; 80048; 80069; 81001; 82043; 82247; 82948; 83010; 83615; 83735; 83970; 84100; 84155; 84165; 85025; 85027; 87077; 87086; 87186; 93225; 93226; J1644; J1815; J7030

== ENCOUNTER 2017-02-22 04:26 | Inpatient (IN) | payer MEDICARE, OTHER ==
[~2017-02-22] VITALS: Ht 167.6 cm; Wt 78.2 kg
[~2017-02-22 04:26] MED LIST changes: +AMLO5 PO; -DIPH25CA PO; -GLIP10TA6 PO; -GLIP5 PO; -GLIP5TAB8 PO; +MACR100C2 PO; -VITA100018 PO; +ZYPR20TA PO
[2017-02-22 04:31] VITALS: BP 171/89; PULSE 120; RESP 14; TEMP 98.7; O2SAT 94
[2017-02-22] MEDS ORDERED: SODIUM CHLOR 0.9% 1000 ML INJ 1,000 ML IV SCH (04:35)
--- NOTE | 2017-02-22 04:35 | PD ---
HPI Chief Complaint: Nino act Time Seen by Provider: 04:25 Travel History International Travel<30 days: No Contact w/Intl Traveler<30days: No Traveled to known affect area: No History of Present Illness HPI 66-year-old female with history of bipolar disorder presents under Nino act initiated by the Police Department. The patient refuses to speak which seems to be a common presentation here. History is therefore primarily obtained by EMS and Nino act form. According to the Nino act form, "subjects suffers from a manic disorder and may be off her medications. She advised she hasn't been eating, drinking water, or sleeping because she is not allowed. Also spoke about having issues going to the restroom because of generalized in the issues." When asking her about these statements directly the patient refuses to speak. She is awake and alert. PFSH Past Medical History Arthritis: No Asthma: No Autoimmune Disease: No Bipolar Disorder: Yes Anxiety: Yes Depression: Yes Heart Rhythm Problems: No Cancer: No Cardiovascular Problems: No High Cholesterol: No Chemotherapy: No Chest Pain: No Congestive Heart Failure: No COPD: No Cerebrovascular Accident: No Diabetes: Yes Diminished Hearing: Yes (BILATERAL) Endocrine: Yes Gastrointestinal Disorders: No GERD: No Genitourinary: Yes Hiatal Hernia: No Hypertension: Yes Immune Disorder: No Kidney Stones: No Musculoskeletal: No Neurologic: Yes Psychiatric: Yes (Yes - Schizoaffective) Reproductive: No Respiratory: No Migraines: No Radiation Therapy: No Renal Failure: No Seizures: No Sickle Cell Disease: No Sleep Apnea: No Thyroid Disease: No Ulcer: No Menopausal: Yes : 2 Para: 2 Miscarriage: 0 : 0 Past Surgical History Abdominal Surgery: No AICD: No Arteriovenous Shunt: No Cardiac Surgery: No Ear Surgery: No Endocrine Surgery: No Eye Surgery: No Genitourinary Surgery: No Gynecologic Surgery: No Insulin Pump: No Joint Replacement: No Oral Surgery: No Pacemaker: No Thoracic Surgery: No Other Surgery: Yes (UNABLE TO DETERMINE) Social History Alcohol Use: No Tobacco Use: No Substance Use: No Allergies-Medications (Allergen,Severity, Reaction): Coded Allergies: Sulfa (Sulfonamide Antibiotics) (Unverified Allergy, Severe, Hives, ) ibuprofen (Unverified Allergy, Severe, HIVES, 02/21/17) penicillin G (Unverified Allergy, Severe, HIVES, 02/21/17) Reported Meds & Prescriptions Reported Meds & Active Scripts Active Thiothixene 10 Mg Cap 10 Mg PO DAILY@08,16 Depakote ER (Divalproex Sodium) 500 Mg Diana 1,000 Mg PO HS Norvasc (Amlodipine Besylate) 5 Mg Tab 5 Mg PO DAILY 28 Days Thiothixene 10 Mg Cap 10 Mg PO DAILY@08,16 0 Days Zyprexa Zydis (Olanzapine) 20 Mg Tab 20 Mg PO HS 0 Days Metoprolol Tartrate 25 Mg Tab 12.5 Mg PO Q12HR 0 Days Depakote ER (Divalproex Sodium) 500 Mg Diana 1,000 Mg PO HS 0 Days Reported Macrobid (Nitrofurantoin Monoh/Nitrofur Macro) 100 Mg Cap 100 Mg PO BID Zyprexa (Olanzapine) 20 Mg Tab 20 Mg PO HS Review of Systems ROS Limitations: Refused Except as stated in HPI: all other systems reviewed are Neg Physical Exam Exam Limitations: Refused Narrative GENERAL: This is a disheveled appearing female who is awake and alert but refuses to interact. SKIN: Warm and dry. HEAD: Atraumatic. Normocephalic. EYES: Pupils equal and round. No scleral icterus. No injection or drainage. ENT: No nasal bleeding or discharge. Mucous membranes pink and moist. NECK: Trachea midline. No JVD. CARDIOVASCULAR: Regular rate and rhythm. No murmur appreciated. RESPIRATORY: No accessory muscle use. Clear to auscultation. Breath sounds equal bilaterally. GASTROINTESTINAL: Abdomen soft, non-tender, nondistended. Hepatic and splenic margins not palpable. MUSCULOSKELETAL: No obvious deformities. No cyanosis. No edema. NEUROLOGICAL: Awake and alert. No obvious cranial nerve deficits. Motor grossly within normal limits. Data Data Last Documented VS Vital Signs Date Time Temp Pulse Resp B/P Pulse Ox O2 Delivery O2 Flow Rate FiO2 02/22/17 04:31 98.7 120 14 171/89 94 Orders Complete Blood Count With Diff (02/22/17 04:31) Comprehensive Metabolic Panel (02/22/17 04:31) Urinalysis - C+S If Indicated (02/22/17 04:31) Psych Screen (02/22/17 04:31) Drug Screen, Random Urine (02/22/17 04:31) Alcohol (Ethanol) (02/22/17 04:31) Salicylates (Aspirin) (02/22/17 04:31) Tylenol (Acetaminophen) (02/22/17 04:31) Valproic Acid (Depakene) (02/22/17 04:35) Sodium Chlor 0.9% 1000 Ml Inj (Ns 1000 M (02/22/17 04:35) Electrocardiogram (02/22/17 04:35) Ct Brain W/O Iv Contrast(Rout) (02/22/17 ) Cath For Specimen (02/22/17 04:44) Chest, Single Ap (02/22/17 ) Creatine Kinase (Cpk) (02/22/17 04:56) Olanzapine Inj (Zyprexa Inj) (02/22/17 06:30) ^ Sitter (02/22/17 06:25) Lorazepam Inj (Ativan Inj) (02/22/17 06:45) Labs Laboratory Tests Test 02/22/17 05:15 White Blood Count 7.2 TH/MM3 Red Blood Count 4.45 MIL/MM3 Hemoglobin 12.9 GM/DL Hematocrit 38.3 % Mean Corpuscular Volume 86.0 FL Mean Corpuscular Hemoglobin 29.0 PG Mean Corpuscular Hemoglobin 33.7 % Concent Red Cell Distribution Width 13.1 % Platelet Count 127 TH/MM3 Mean Platelet Volume 10.1 FL Neutrophils (%) (Auto) 70.7 % Lymphocytes (%) (Auto) 18.3 % Monocytes (%) (Auto) 9.4 % Eosinophils (%) (Auto) 1.0 % Basophils (%) (Auto) 0.6 % Neutrophils # (Auto) 5.1 TH/MM3 Lymphocytes # (Auto) 1.3 TH/MM3 Monocytes # (Auto) 0.7 TH/MM3 Eosinophils # (Auto) 0.1 TH/MM3 Basophils # (Auto) 0.0 TH/MM3 CBC Comment DIFF FINAL Differential Comment Urine Color YELLOW Urine Turbidity HAZY Urine pH 5.5 Urine Specific [place] 1.032 Urine Protein 30 mg/dL Urine Glucose (UA) NEG mg/dL Urine Ketones 40 mg/dL Urine Occult Blood NEG Urine Nitrite NEG Urine Bilirubin NEG Urine Urobilinogen LESS THAN 2.0 MG/DL Urine Leukocyte Esterase TRACE Urine RBC 1 /hpf Urine WBC 4 /hpf Urine Squamous Epithelial 3 /hpf Cells Urine Transitional Epithelial <1 /hpf Cells Urine Amorphous Sediment RARE Urine Mucus FEW /lpf Microscopic Urinalysis Comment CULT NOT INDICATED Sodium Level 138 MEQ/L Potassium Level 3.5 MEQ/L Chloride Level 107 MEQ/L Carbon Dioxide Level 19.9 MEQ/L Anion Gap 11 MEQ/L Blood Urea Nitrogen 30 MG/DL Creatinine 1.33 MG/DL Estimat Glomerular Filtration 40 ML/MIN Rate Random Glucose 234 MG/DL Calcium Level 8.9 MG/DL Total Bilirubin 1.3 MG/DL Aspartate Amino Transf 13 U/L (AST/SGOT) Alanine Aminotransferase 15 U/L (ALT/SGPT) Alkaline Phosphatase 91 U/L Total Creatine Kinase 141 U/L Total Protein 8.7 GM/DL Albumin 4.1 GM/DL Salicylates Level LESS THAN 1.7 MG/DL Urine Opiates Screen NEG Acetaminophen Level LESS THAN 2.0 MCG/ML Urine Barbiturates Screen NEG Valproic Acid (Depakene) Level LESS THAN 3 MCG/ML Urine Amphetamines Screen NEG Urine Benzodiazepines Screen NEG Urine Cocaine Screen NEG Urine Cannabinoids Screen NEG Ethyl Alcohol Level LESS THAN 3 MG/DL MDM Medical Decision Making Medical Screen Exam Complete: Yes Emergency Medical Condition: Yes Medical Record Reviewed: Yes Differential Diagnosis Bipolar disorder, medication noncompliance, dehydration, electrolyte abnormality , sepsis, acute psychosis Narrative Course 66-year-old female presents under Nino act for apparently refusing to take care of herself. She is awake however is refusing contract at this time. According to the Nino act form the patient told the police that she has not been eating or drinking water sleeping because she is not allowed to. During her last psychiatric hospitalization she developed acute renal insufficiency and hypercalcemia. She is tachycardic on initial examination We will check basic lab work, EKG, CT brain. She'll be given IV fluids. Mental health screening discussed with the patient. Psychiatric screen ordered. Lab work imaging studies have been reviewed. CT brain reveals stable atrophy. CMP reveals a BUN of 30, creatinine 1.33 which appears to be her baseline. Chest x-ray reveals no acute findings. Valproic acid is less than 3. The patient is medically cleared for psychiatric disposition. 06: The patient has now walked out of her hospital room naked screaming "I need a pooper." She will be given a dose of Zyprexa. Ativan has been ordered as well. Procedures EKG Prior to Arrival: Yes Diagnosis Primary Impression: Medical clearance for psychiatric admission Additional Impression: Bipolar affective disorder, current episode manic with psychotic symptoms Elvis Bhat Feb 22, 2017 04:35
--- NOTE | 2017-02-22 05:17 | RADRPT ---
EXAM DATE/TIME: 02/22/2017 04:45 [facility] COMPARISON: No previous studies available for comparison. INDICATIONS : Cough. MEDICAL HISTORY : Unobtainable. SURGICAL HISTORY : Unobtainable. ENCOUNTER: Initial ACUITY: 1 day PAIN SCORE: Non-responsive. LOCATION: Bilateral chest FINDINGS: A single view of the chest demonstrates the lungs to be symmetrically aerated without evidence of mas s, infiltrate or effusion. The cardiomediastinal contours are unremarkable. Degenerative changes in both shoulders. CONCLUSION: The lungs are clear. Jeremy Combs MD on February 22, 2017 at 5:15 Board Certified Radiologist. This report was verified electronically.
[2017-02-22 05:34] LABS: BLOOD, URINE NEG (NEG); GLUCOSE,URINE NEG (NEG); KETONE, URINE 40 mg/dL (NEG); MUCUS URINE FEW /lpf (OCC); NITRITE,URINE NEG (NEG); PH, URINE 5.5 (5.0-8.5); SQUAMOUS EPITHELIAL CELL URINE 3 /hpf (0-5); TRANSITIONAL EPI CELLS, URINE <1 /hpf; URINE COLOR YELLOW (YELLW/STRAW)
[2017-02-22 05:35] LABS: AUTOMATED NEUTROPHIL # 5.1 TH/MM3 (1.8-7.7); BASOPHIL % 0.6 % (0.0-2.0); EOSINOPHIL # 0.1 TH/MM3 (0-0.4); HEMATOCRIT 38.3 % (35.0-46.0); HEMO FLAGS DIFF FINAL; LYMPH % 18.3 % (9.0-44.0); LYMPHOCYTE # 1.3 TH/MM3 (1.0-4.8); MEAN CORPUSCULAR HGB CONC 33.7 % (32.0-36.0); MONO % 9.4 % (0.0-8.0); NEUT % 70.7 % (16.0-70.0); PLATELET COUNT 127 TH/MM3 (150-450); RED BLOOD COUNT 4.45 MIL/MM3 (4.00-5.30); RED CELL DISTRIBUTION WIDTH 13.1 % (11.6-17.2); WHITE BLOOD COUNT 7.2 TH/MM3 (4.0-11.0)
[2017-02-22 05:36] LABS: COMMENT (UR) CULT NOT INDICATED; CULTURE IF INDICATED CULT NOT INDICATED
--- NOTE | 2017-02-22 05:53 | RADRPT ---
EXAM DATE/TIME: 02/22/2017 05:28 [facility] COMPARISON: CT BRAIN W/O CONTRAST, April 08, 2015, 17:07. INDICATIONS : Altered mental status. RADIATION DOSE: ?56.36 CTDIvol (mGy) MEDICAL HISTORY : Hypertension. Diabetes mellitus type 2. Deep venous thrombosis. SURGICAL HISTORY : None. ENCOUNTER: Initial ACUITY: 1 day PAIN SCALE: 0/10 LOCATION: cranial TECHNIQUE: Multiple contiguous axial images were obtained of the head. Using automated exposure control and adj ustment of the mA and/or kV according to patient size, radiation dose was kept as low as reasonably a chievable to obtain optimal diagnostic quality images. DICOM format image data is available electro nically for review and comparison. FINDINGS: Patient's head is canted in the gantry. CEREBRUM: The ventricles and sulci are prominent, similar to prior. No evidence of midline shift, mass lesion, hemorrhage or acute infarction. No extra-axial fluid collections are seen. POSTERIOR FOSSA: The cerebellum and brainstem are intact. The 4th ventricle is midline. The cerebellopontine angle i s unremarkable. EXTRACRANIAL: The visualized portion of the orbits is intact. SKULL: Hyperostosis of the frontal bone. The calvaria is intact. No evidence of skull fracture. CONCLUSION: Stable atrophy. No acute findings in the brain. Jeremy Combs MD on February 22, 2017 at 5:51 Board Certified Radiologist. This report was verified electronically.
[2017-02-22 06:01] LABS: ANION GAP 11 MEQ/L (5-15); AST (GOT) 13 U/L (15-37); BICARBONATE 19.9 MEQ/L (21.0-32.0); BLOOD UREA NITROGEN 30 MG/DL (7-18); CHLORIDE 107 MEQ/L (98-107); GLOMERULAR FILTRATION RATE 40 ML/MIN (>89); POTASSIUM 3.5 MEQ/L (3.5-5.1); SODIUM (NA) 138 MEQ/L (136-145)
[2017-02-22 06:02] LABS: ALCOHOL LESS THAN 3 MG/DL (0-5); ALT (GPT) 15 U/L (10-53)
[2017-02-22 06:04] LABS: ALKALINE PHOSPHATASE 91 U/L (45-117); TOTAL BILIRUBIN ADULT 1.3 MG/DL (0.2-1.0)
[2017-02-22 06:10] LABS: ACETAMINOPHEN LESS THAN 2.0 MCG/ML (10.0-30.0)
[2017-02-22] MEDS ORDERED: OLANZapine IM 10 MG VIAL IM ONE (06:30)
[2017-02-22] MEDS ORDERED: LORazepam 2 MG/ML VIAL IM ONE (06:45)
[2017-02-22 07:17] VITALS: BP 126/86; PULSE 110; RESP 20; O2SAT 95
[2017-02-22] MEDS ORDERED: ACETAMINOPHEN 325 MG TAB PO PRN (12:00)
[2017-02-22] MEDS ORDERED: MAGNESIUM HYDROXIDE SUSP 30 ML CUP PO PRN (12:00)
[2017-02-22] MEDS ORDERED: LORazepam 2 MG/ML VIAL IM PRN ×2 (12:00)
[2017-02-22] MEDS ORDERED: LORazepam 0.5 MG TAB PO PRN (12:00)
[2017-02-22] MEDS ORDERED: diphenhydrAMINE HCL 50 MG/ML VIAL IM PRN (12:00)
[2017-02-22] MEDS ORDERED: traZODone HCL 50 MG TAB PO PRN (12:00)
[2017-02-22] MEDS ORDERED: ALUMINUM/MAGNESIUM/SIMETH 30 ML CUP PO PRN (12:00)
--- NOTE | 2017-02-22 12:14 | HHI.HP ---
Provisional Diagnosis Admission Date Feb 22, 2017 at 11:53 [place]. Bipolar, manic Certification of Person's Competence To Provide Express and Informed Consent I have personally examined Theresa Hurley , a person being served at [facility] on, Feb 22, 2017 12:02. Express and informed consent means consent voluntarily given in writing, by a competent person, after sufficient explanation and disclosure of the subject matter involved to enable the person to make a knowing and willful decision without any element of force, fraud, deceit, duress, or other form of constraint or coercion. This person is 18 years of age or older, is not now known to be incompetent to consent to treatment with a guardian advocate, and does not have a health care surrogate or proxy currently making medical treatment decisions. I have found this person to be one of the following: [x] Competent to provide express and informed consent, as defined above, for voluntary admission to this facility and is competent to provide express and informed consent for treatment. He/she has the consistent capacity to make well reasoned, willful, and knowing decisions concerning his or her medical or mental health treatment. The person fully and consistently understands the purpose of the admission for examination/placement and is fully capable of personally exercising all rights assured under [place] Incompetent to provide express and informed consent to voluntary admission, and this is incompetent to provide express and informed consent to treatment. The person must be transferred to involuntary status and a petition for a guardian advocate filed with the Circuit Court. [] Refusing to provide express and informed consent to voluntary admission but is competent to provide express and informed consent for treatment. The person must be discharged or transferred to involuntary status. Form shall be completed within 24 hours of a person's arrival at the receiving facility and filed in the clinical record of each person: 1. Admitted on a voluntary basis 2. Permitted to provide express and informed consent to his/her own treatment 3. Allowed to transfer from involuntary to voluntary status 4. Prior to permitting a person to consent to his or her own treatment after having been previously found incompetent to consent to treatment. History of Present Illness Capacity: Has Capacity HPI This is a 66-year-old female, well known to this physician and the staff here at [facility]. She has been seen in the emergency department and admitted to the adult service on multiple occasions, including several months ago. She has a history of noncompliance with psychotropic medicines and once again this appears to be the case prior to this ED visit and admission. Patient also has a history of diabetes and renal disease which she does not take care of. She lives with her daughter, who is hearing impaired. The patient is unable to care for herself at this time. Patient was interviewed by this physician and declines to discuss her symptoms or reasons for being here. She repeatedly demands that Dr. Costa Colón provide her with ECT, which she has undergone in the past. She is unable to engage in a cogent conversation but does admit to not sleeping or eating or drinking fluids for the last 5 or 6 days. She remains rather disorganized in her speech. When asked about her current condition she states she is in [place]". She also reports that she is "not allowed" to sleep. She refuses to speak in detail to any evaluater. She is disheveled, unkempt and obviously too disorganized to care for herself.. Review of Systems ROS Limitations: Clinical Condition Except as stated in HPI: all other systems reviewed are Neg Past Psych History Psychological trauma history Unknown regarding psychological trauma but the patient has been admitted to this facility on multiple occasions. Violence risk - others (6 mos) Minimal. Violence risk - self (6 mos) Moderate to high. Substance Abuse History Drugs/Alcohol past 12 months Denied. Past Family Social History Coded Allergies: Sulfa (Sulfonamide Antibiotics) (Unverified Allergy, Severe, Hives, ) ibuprofen (Unverified Allergy, Severe, HIVES, 02/21/17) penicillin G (Unverified Allergy, Severe, HIVES, 02/21/17) Active Scripts Thiothixene 10 Mg Cap10 Mg PO DAILY@,16 #60 CAP Prov:Abdoulaye Barclay DO 11/06/16 Divalproex ER (Depakote ER)500 Mg Taber1,000 Mg PO HS #28 TAB Prov:Abdoulaye Barclay DO 11/06/16 Amlodipine (Norvasc)5 Mg Tab5 Mg PO DAILY 28 Days Ref 0 Prov:Abdoulaye Barclay DO 11/06/16 Thiothixene 10 Mg Cap10 Mg PO DAILY@,16 0 Days Ref 0 Prov:Osiel Davis MD 11/01/16 Olanzapine Odt (Zyprexa Zydis)20 Mg Tab20 Mg PO HS 0 Days Ref 0 Prov:Osiel Davis MD 11/01/16 Metoprolol Tartrate 25 Mg Tab12.5 Mg PO Q12HR 0 Days Ref 0 Prov:Osiel Davis MD 11/01/16 Divalproex ER (Depakote ER)500 Mg Taber1,000 Mg PO HS 0 Days Ref 0 Prov:Osiel Davis MD 11/01/16 Reported Medications Nitrofurantoin Monohydrate Macrocrystals (Macrobid)100 Mg [id number] Mg PO BID #15 CAP Ref 0 11/06/16 Olanzapine (Zyprexa)20 Mg Tab20 Mg PO HS #30 TAB Ref 0 11/06/16 Current Medications Medications (Trade) Dose Ordered Sig/Valentina Route Start Time Stop Time Status Last Admin (Ativan) 1 mg Q6H PRN PO 02/22/17 12:00 UNV (Ativan Inj) 1 mg Q6H PRN IM 02/22/17 12:00 UNV (Ativan) 0.5 mg Q12H PRN PO 02/22/17 12:00 UNV (Ativan Inj) 0.5 mg Q12H PRN IM 02/22/17 12:00 UNV (Benadryl) 50 mg Q6H PRN PO 02/22/17 12:00 UNV (Benadryl Inj) 50 mg Q6H PRN IM 02/22/17 12:00 UNV (Tylenol) 650 mg Q4H PRN PO 02/22/17 12:00 UNV (Milk Of Magnesia Liq) 30 ml DAILY PRN PO 02/22/17 12:00 UNV (Mag-Al Plus Susp Liq) 30 ml Q6H PRN PO 02/22/17 12:00 UNV (Desyrel) 50 mg HS PRN PO 02/22/17 12:00 UNV Family History Positive for mood disorders. Social History On Social Security disability. Unable to work. Lives with her daughter. Daughter is hearing impaired. Patient's Strengths (min. 2) Resilient and has access to healthcare. Physical Exam GENERAL: SKIN: Warm and dry. HEAD: Normocephalic. EYES: No scleral icterus. No injection or drainage. NECK: Supple, trachea midline. No JVD or lymphadenopathy. CARDIOVASCULAR: Regular rate and rhythm without murmurs, gallops, or rubs. RESPIRATORY: Breath sounds equal bilaterally. No accessory muscle use. GASTROINTESTINAL: Abdomen soft, non-tender, nondistended. MUSCULOSKELETAL: No cyanosis, or edema. BACK: Nontender without obvious deformity. No CVA tenderness. Vital Signs Vital Signs Date Time Temp Pulse Resp B/P Pulse Ox O2 Delivery O2 Flow Rate FiO2 02/22/17 07:17 110 20 126/86 95 Room Air 02/22/17 04:31 98.7 Mental Status Examination Speech: Incoherent Orientation: Person Memory: Unremarkable Thought Process: Loose Association Thought Content: Bizarre thinking, Ideas of Reference Hallucination Type: None Attention and Concentration: Easily Distracted Suicidal Ideation: No Previous Suicide Attempts: No Homicidal Ideation: No Previous Homicide Attempts: No Insight: Poor Judgment: Unrealistic Affect: Irritable Mood: Irritable Motor Activity: Normal gait Assessment & Plan Problem List: (1) Bipolar affective disorder, current episode manic with psychotic symptoms ICD Code: F31.2 (2) Bipolar affective, manic, severe ICD Code: F31.13 Assessment & Plan Estimated LOS: days 66-year-old female with multiyear history of bipolar disorder, presenting under a Nino act for inability to care for herself, not eating, not drinking, not taking medications to control her mental or physical illness, etc., for approximately 5-6 days. At this point the patient is a poor historian due to disorganized thinking and psychosis. Patient states she is "not allowed" to eat or sleep. She also remarks that she lives in [facility]. She is unable to carry on a cogent conversation. She has serious physical issues including renal insufficiency and diabetes. This physician feels she is at very high risk for self neglect and self-harm. Patient is being admitted for evaluation and treatment. We are obtaining a CBC and comprehensive metabolic panel to determine if any infectious process or metabolic abnormalities are causing or contributing to her current psychosis. We are also obtaining vitamin B-12, vitamin D and thyroid stimulating hormone levels to determine if deficiencies in this area are causing or contributing to her mena and psychosis. She will have her lipid examined as she is overweight , 66 years old and these physicians may be exacerbated by psychotropic medicines. Likewise, the patient will have an EKG to ensure her cardiac status is not adversely affected by psychotropic medication changes. This physician has requested a hospitalist consult to evaluate the patient's physical condition. This physician spoke with the patient's nurse regarding her recent behavior. Lastly, case management will be involved to gather further information and assist with disposition planning. Juaquin Poe MD Feb 22, 2017 12:14
[2017-02-22 13:15] VITALS: BP 126/75; PULSE 94; RESP 18; TEMP 97.4; O2SAT 96
--- NOTE | 2017-02-22 15:02 | EKG ---
Date Performed: 02/22/2017 Time Performed: 04:47:44 PTAGE: 66 years EKG: SINUS TACHYCARDIA POSSIBLE LEFT ATRIAL ENLARGEMENT LEFT ANTERIOR FASCICULAR BLOCK LEFT VENT RICULAR HYPERTROPHY AND ST-T CHANGE POSSIBLE ANTERIOR MYOCARDIAL INFARCTION ABNORMAL ECG PREVIOUS TRACING : 10/13/2016 17.58 Compared to prior tracing no significant change DOCTOR: Ignacio Salvador Interpretating Date/Time 02/22/2017 15:00:15
--- NOTE | 2017-02-22 20:23 | PD.CONS ---
History of Present Illness Consult Requested By psych for medical mgt Reason for Consult medical mgt htn cad dysrrythmia Primary Care Physician Abdoulaye Barclay, DO Diagnoses: History of Present Illness [facility] hx bipolar disorder with medical comorbidites csd htn and tachydysrrythmias Review of Systems Psychiatric: COMPLAINS OF: Anxiety, Confusion, Mood changes, Depression Past Family Social History Allergies: Coded Allergies: Sulfa (Sulfonamide Antibiotics) (Unverified Allergy, Severe, Hives, ) ibuprofen (Unverified Allergy, Severe, HIVES, 02/21/17) penicillin G (Unverified Allergy, Severe, HIVES, 02/21/17) Past Surgical History right club foot Reported Medications Reported Meds & Active Scripts Active Thiothixene 10 Mg Cap 10 Mg PO DAILY@,16 Depakote ER (Divalproex Sodium) 500 Mg Diana 1,000 Mg PO HS Norvasc (Amlodipine Besylate) 5 Mg Tab 5 Mg PO DAILY 28 Days Thiothixene 10 Mg Cap 10 Mg PO DAILY@,16 0 Days Zyprexa Zydis (Olanzapine) 20 Mg Tab 20 Mg PO HS 0 Days Metoprolol Tartrate 25 Mg Tab 12.5 Mg PO Q12HR 0 Days Depakote ER (Divalproex Sodium) 500 Mg Diana 1,000 Mg PO HS 0 Days Reported Macrobid (Nitrofurantoin Monoh/Nitrofur Macro) 100 Mg Cap 100 Mg PO BID Zyprexa (Olanzapine) 20 Mg Tab 20 Mg PO HS Active Ordered Medications Inpatient Medications Acetaminophen (Tylenol) 650 mg Q4H PRN PO Pain 1-5 or Temp >101F; Start at 12:00 Al Hydrox/Mg Hydrox/Simethicone (Mag-Al Plus Susp Liq) 30 ml Q6H PRN PO DYSPEPSIA; Start 02/22/17 at 12:00 Diphenhydramine HCl (Benadryl Inj) 50 mg Q6H PRN IM For mild anxiety and/or EPS ; Start 02/22/17 at 12:00 Diphenhydramine HCl (Benadryl) 50 mg Q6H PRN PO For mild anxiety and/or EPS; Start 02/22/17 at 12:00 Lorazepam (Ativan Inj) 0.5 mg Q12H PRN IM MODERATE TO SEVERE ANXIETY; Start at 12:00 Lorazepam (Ativan) 0.5 mg Q12H PRN PO MODERATE TO SEVERE ANXIETY; Start at 12:00 Magnesium Hydroxide (Milk Of Magnmary Liq) 30 ml DAILY PRN PO CONSTIPATION; Start 02/22/17 at 12:00 Olanzapine (ZyPREXA INJ) 10 mg ONCE ONCE IM Last administered on 02/22/17 06: 40; Start 02/22/17 at 06:30; Stop 02/22/17 at 06:31; Status DC Pneumococcal Polyvalent Vaccine (Pneumovax-23 Inj) 25 mcg ONCE ONCE IM ; Start 02/23/17 at 10:00; Stop 02/23/17 at 10:01 Sodium Chloride (NS 1000 ml Inj) 1,000 ml @ 1,000 mls/hr Q1H IV Last administered on 02/22/17 04:35; Start 02/22/17 at 04:35; Stop 02/22/17 at 05:34 ; Status DC Trazodone HCl (Desyrel) 50 mg HS PRN PO INSOMNIA; Start 02/22/17 at 12:00 Family History father had heart disease mother had alzheimers Social History non smoker rare drinker Physical Exam Vital Signs Vital Signs Date Time Temp Pulse Resp B/P Pulse Ox O2 Delivery O2 Flow Rate FiO2 02/22/17 13:15 97.4 94 18 126/75 96 02/22/17 07:17 110 20 126/86 95 Room Air 02/22/17 04:31 98.7 120 14 171/89 94 Physical Exam GENERAL: This is a well-nourished, well-developed patient, anxious SKIN: No rashes, ecchymoses or lesions. Cool and dry. HEAD: Atraumatic. Normocephalic. No temporal or scalp tenderness. EYES: Pupils equal round and reactive. Extraocular motions intact. No scleral icterus. No injection or drainage. ENT: Nose without bleeding, purulent drainage or septal hematoma. Throat without erythema, tonsillar hypertrophy or exudate. Uvula midline. Airway patent. NECK: Trachea midline. No JVD or lymphadenopathy. Supple, nontender, no meningeal signs. CARDIOVASCULAR: Regular rate and rhythm without murmurs, gallops, or rubs. RESPIRATORY: Clear to auscultation. Breath sounds equal bilaterally. No wheezes , rales, or rhonchi. GASTROINTESTINAL: Abdomen soft, non-tender, nondistended. No hepato-splenomegaly , or palpable masses. No guarding. MUSCULOSKELETAL: Extremities without, cyanosis, or edema. No joint tenderness, effusion, or edema noted. No calf tenderness. Negative Homans sign bilaterally. NEUROLOGICAL: Awake and alert. Cranial nerves II through XII intact. Motor and sensory grossly within normal limits. Five out of 5 muscle strength in all muscle groups. Normal speech. PSYCH anxious disjointed thoughts Laboratory Laboratory Tests Test 02/22/17 05:15 White Blood Count 7.2 Red Blood Count 4.45 Hemoglobin 12.9 Hematocrit 38.3 Mean Corpuscular Volume 86.0 Mean Corpuscular Hemoglobin 29.0 Mean Corpuscular Hemoglobin 33.7 Concent Red Cell Distribution Width 13.1 Platelet Count 127 Mean Platelet Volume 10.1 Neutrophils (%) (Auto) 70.7 Lymphocytes (%) (Auto) 18.3 Monocytes (%) (Auto) 9.4 Eosinophils (%) (Auto) 1.0 Basophils (%) (Auto) 0.6 Neutrophils # (Auto) 5.1 Lymphocytes # (Auto) 1.3 Monocytes # (Auto) 0.7 Eosinophils # (Auto) 0.1 Basophils # (Auto) 0.0 CBC Comment DIFF FINAL Differential Comment Urine Color YELLOW Urine Turbidity HAZY Urine pH 5.5 Urine Specific [place] 1.032 Urine Protein 30 Urine Glucose (UA) NEG Urine Ketones 40 Urine Occult Blood NEG Urine Nitrite NEG Urine Bilirubin NEG Urine Urobilinogen LESS THAN 2.0 Urine Leukocyte Esterase TRACE Urine RBC 1 Urine WBC 4 Urine Squamous Epithelial 3 Cells Urine Transitional Epithelial <1 Cells Urine Amorphous Sediment RARE Urine Mucus FEW Microscopic Urinalysis Comment CULT NOT INDICATED Sodium Level 138 Potassium Level 3.5 Chloride Level 107 Carbon Dioxide Level 19.9 Anion Gap 11 Blood Urea Nitrogen 30 Creatinine 1.33 Estimat Glomerular Filtration 40 Rate Random Glucose 234 Calcium Level 8.9 Total Bilirubin 1.3 Aspartate Amino Transf 13 (AST/SGOT) Alanine Aminotransferase 15 (ALT/SGPT) Alkaline Phosphatase 91 Total Creatine Kinase 141 Total Protein 8.7 Albumin 4.1 Salicylates Level LESS THAN 1.7 Urine Opiates Screen NEG Acetaminophen Level LESS THAN 2.0 Urine Barbiturates Screen NEG Valproic Acid (Depakene) Level LESS THAN 3 Urine Amphetamines Screen NEG Urine Benzodiazepines Screen NEG Urine Cocaine Screen NEG Urine Cannabinoids Screen NEG Ethyl Alcohol Level LESS THAN 3 Result Diagram: 02/22/17 0515 02/22/17 0515 Imaging Last [address] 02/22/17 0000 Signed Impressions: Service Date/Time: Wednesday, February 22, 2017 05:28 - CONCLUSION: Stable atrophy. No acute findings in the brain. Jeremy Combs MD Chest X-Ray 02/22/17 0000 Signed Impressions: Service Date/Time: Wednesday, February 22, 2017 04:45 - CONCLUSION: The lungs are clear. Jeremy Combs MD Assessment and Plan Problem List: (1) Hypertension Status: Acute (2) Bipolar disorder Status: Acute Plan: psych management (3) Medical clearance for psychiatric admission Status: Acute Plan: vss afebrile ekg unchanged from previous no cp no sob ok medically for psych adm will follow closely and ck lab in Abdoulaye Castaneda DO Feb 22, 2017 20:23
[2017-02-23 06:00] VITALS: BP 114/65; PULSE 96; RESP 20; TEMP 98.4
[2017-02-23] MEDS ORDERED: PILL SPLITTER OTHER PRN (07:30)
--- NOTE | 2017-02-23 07:38 | HHI.PR ---
Subjective Remarks Patient seen in common room. Denies any CP or SOB. Recognized PA and brought up the [place]. Objective Vital Signs Date Time Temp Pulse Resp B/P Pulse Ox O2 Delivery O2 Flow Rate FiO2 02/23/17 06:00 98.4 96 20 114/65 02/22/17 13:15 97.4 94 18 126/75 96 Result Diagram: 02/22/17 0515 02/22/17 0515 Imaging Last [address] 02/22/17 0000 Signed Impressions: Service Date/Time: Wednesday, February 22, 2017 05:28 - CONCLUSION: Stable atrophy. No acute findings in the brain. Jeremy Combs MD Chest X-Ray 02/22/17 0000 Signed Impressions: Service Date/Time: Wednesday, February 22, 2017 04:45 - CONCLUSION: The lungs are clear. Jeremy Combs MD Objective Remarks GENERAL: Alert and cooperative SKIN: Warm and dry. HEAD: Normocephalic. EYES: No scleral icterus. No injection or drainage. NECK: Supple, trachea midline. No JVD or lymphadenopathy. CARDIOVASCULAR: Regular rate and rhythm without murmurs, gallops, or rubs. RESPIRATORY: Breath sounds equal bilaterally. No accessory muscle use. GASTROINTESTINAL: Abdomen soft, non-tender, nondistended. MUSCULOSKELETAL: No cyanosis, or edema. BACK: Nontender without obvious deformity. No CVA tenderness. Medications and IVs Current Medications Medications (Trade) Dose Ordered Sig/[place]entina Route Start Time Stop Time Status Last Admin (Ativan) 1 mg Q6H PRN PO 02/22/17 12:00 (Ativan Inj) 1 mg Q6H PRN IM 02/22/17 12:00 (Ativan) 0.5 mg Q12H PRN PO 02/22/17 12:00 (Ativan Inj) 0.5 mg Q12H PRN IM 02/22/17 12:00 (Benadryl) 50 mg Q6H PRN PO 02/22/17 12:00 (Benadryl Inj) 50 mg Q6H PRN IM 02/22/17 12:00 (Tylenol) 650 mg Q4H PRN PO 02/22/17 12:00 (Milk Of Magnesia Liq) 30 ml DAILY PRN PO 02/22/17 12:00 (Mag-Al Plus Susp Liq) 30 ml Q6H PRN PO 02/22/17 12:00 (Desyrel) 50 mg HS PRN PO 02/22/17 12:00 (Pneumovax-23 Inj) 25 mcg ONCE ONCE IM 02/23/17 10:00 02/23/17 10:01 Assessment and Plan Problem List: (1) Hypertension Status: Acute (2) Bipolar disorder Status: Acute (3) Thrombocytopenia Status: Acute (4) Sinus tachycardia Status: Acute (5) Non-insulin dependent type 2 diabetes mellitus Status: Chronic Assessment and Plan 02/23 HTN: Blood pressure 114/65 but HR 96 this AM. HR as high as 120 yesterday medication reconciled and metoprolol resumed. ECG revealed ST Diabetes: Blood sugar elevated yesterday at 234. BS ordered AC and HS with SS. On medication record no diabetic medication noted. Will obtain BS if able and add medication as needed Bipolar disordered: Patient is alert and cooperative will defer to psych for medications. Thrombocytopenia: PLT 127 on admission will continue to monitor labs are pending. Elevated renal indices: Fluids encouraged. Labs are pending for today. I and the BIOTECH PRODUCTION SPECIALIST have both examined this patient and reviewed this note and I agree with these findings and plan of care. Abdoulaye Barclay DO Discussed Condition With Nursing Discharge Planning to be determined may need placement Odette Khoury BIOTECH PRODUCTION SPECIALIST Feb 23, 2017 07:38
[2017-02-23] MEDS: METOPROLOL TARTRATE 25 MG TAB PO SCH ×2 (08:56→21:32)
[2017-02-23] MEDS ORDERED: PNEUMOCOCCAL POLYVALENT INJ 25 MCG/0.5 ML SYR IM ONE (10:00)
[2017-02-23] MEDS ORDERED: DEXTROSE 50% IN WATER 50 ML VIAL(D50) IV PRN (11:15)
[2017-02-23] MEDS ORDERED: GLUCAGON 1 MG/ML VIAL OTHER PRN (11:15)
[2017-02-23] MEDS: INSULIN ASPART SUPPLEMENTAL SCALE SQ SCH ×2 (11:30→15:57)
[2017-02-23 12:35] LABS: AUTOMATED NEUTROPHIL # 4.1 TH/MM3 (1.8-7.7); BASOPHIL % 0.8 % (0.0-2.0); EOSINOPHIL # 0.1 TH/MM3 (0-0.4); EOSINOPHIL % 2.1 % (0.0-4.0); HEMO FLAGS DIFF FINAL; LYMPH % 15.2 % (9.0-44.0); LYMPHOCYTE # 0.8 TH/MM3 (1.0-4.8); MEAN CELL VOLUME 87.4 FL (80.0-100.0); MEAN CORPUSCULAR HEMOGLOBIN 28.4 PG (27.0-34.0); MEAN CORPUSCULAR HGB CONC 32.5 % (32.0-36.0); MONO % 7.2 % (0.0-8.0); NEUT % 74.7 % (16.0-70.0); PLATELET COUNT 134 TH/MM3 (150-450); RED BLOOD COUNT 4.12 MIL/MM3 (4.00-5.30); RED CELL DISTRIBUTION WIDTH 13.3 % (11.6-17.2); WHITE BLOOD COUNT 5.5 TH/MM3 (4.0-11.0)
[2017-02-23] MEDS: amLODIPine BESYLATE 5 MG TAB PO SCH (13:15)
[2017-02-23] MEDS ORDERED: ACETAMINOPHEN 325 MG TAB PO PRN (13:15)
--- NOTE | 2017-02-23 13:15 | HHI.PYPN ---
Subjective Remarks Patient seen on unit with nurse Izabel, patient initially seen by Dr. Poe who did H&P, he also did first opinion petition supporting Nino act. I agree. Patient meets criteria for involuntary psychiatric hospitalization under the Nino act thus will cosign second opinion petition supporting Nino act. I have also filled out the initial psychiatric template for this patient. Patient seen in the day room with nurse Izabel. Patient superficial silly saying she is in [facility]. Wanting to see Dr. Colón. Not responding to questions related to compliance medication. The time she appears to be responding to internal stimuli. We will continue her medications per the med reconciliation at this time. Depakote blood level drawn admission was very low Review of Systems ROS Limitations: Altered Mental Status Constitutional: DENIES: Diaphoretic episodes, Fatigue, Fever, Weight gain, Weight loss, Chills, Dizziness, Change in appetite, Night Sweats Endocrine: DENIES: Abnorml menstrual pattern, Heat/cold intolerance, Polydipsia , Polyuria, Polyphagia Eyes: DENIES: Blurred vision, Diplopia, Eye inflammation, Eye pain, Vision loss , Photosensitivity, Double Vision Ears, nose, mouth, throat: DENIES: Tinnitus, Hearing loss, Vertigo, Nasal discharge, Oral lesions, Throat pain, Hoarseness, Ear Pain, Running Nose, Epistaxis, Sinus Pain, Toothache, Odynophagia Respiratory: DENIES: Apneas, Cough, Snoring, Wheezing, Hemoptysis, Sputum production, Shortness of breath Cardiovascular: DENIES: Chest pain, Palpitations, Syncope, Dyspnea on Exertion , PND, Lower Extremity Edema, Orthopnea, Claudication Gastrointestinal: DENIES: Abdominal pain, Black stools, Bloody stools, Constipation, Diarrhea, Nausea, Vomiting, Difficulty Swallowing, Anorexia Genitourinary: DENIES: Abnormal vaginal bleeding, Dysmenorrhea, Dyspareunia, Sexual dysfunction, Urinary frequency, Urinary incontinence, Urgency, Hematuria , Dysuria, Nocturia, Vaginal discharge Musculoskeletal: DENIES: Joint pain, Muscle aches, Stiffness, Joint Swelling, Back pain, Neck pain Integumentary: DENIES: Abnormal pigmentation, Pruritus, Rash, Nail changes, Breast masses, Breast skin changes, Nipple discharge Hematologic/lymphatic: DENIES: Bruising, Lymphadenopathy Immunologic/allergic: DENIES: Eczema, Urticaria Neurologic: DENIES: Abnormal gait, Headache, Localized weakness, Paresthesias, Seizures, Speech Problems, Tremor, Poor Balance Psychiatric: COMPLAINS OF: Anxiety, Hallucinations (vague), Delusions Objective Alert: Yes [place]: Person Mood: Anxious, Happy, Other (superficial silly) Affect: Labile, Manic Memory Intact: Comment Hallucinations: Auditory (very poor vague) Delusions: Yes Delusion Type: Paranoid Suicidal: Ideation (denies) Homicidal: Ideation (denies) Insight/Judgment Very poor Labs Test 02/23/17 12:04 White Blood Count 5.5 TH/MM3 Red Blood Count 4.12 MIL/MM3 Hemoglobin 11.7 GM/DL Hematocrit 36.0 % Mean Corpuscular Volume 87.4 FL Mean Corpuscular Hemoglobin 28.4 PG Mean Corpuscular Hemoglobin 32.5 % Concent Red Cell Distribution Width 13.3 % Platelet Count 134 TH/MM3 Mean Platelet Volume 9.9 FL Neutrophils (%) (Auto) 74.7 % Lymphocytes (%) (Auto) 15.2 % Monocytes (%) (Auto) 7.2 % Eosinophils (%) (Auto) 2.1 % Basophils (%) (Auto) 0.8 % Neutrophils # (Auto) 4.1 TH/MM3 Lymphocytes # (Auto) 0.8 TH/MM3 Monocytes # (Auto) 0.4 TH/MM3 Eosinophils # (Auto) 0.1 TH/MM3 Basophils # (Auto) 0.0 TH/MM3 CBC Comment DIFF FINAL Differential Comment B-Type Natriuretic Peptide 62 PG/ML Vitals/IOs Vital Signs Date Time Temp Pulse Resp B/P Pulse Ox O2 Delivery O2 Flow Rate FiO2 02/23/17 06:00 98.4 96 20 114/65 02/22/17 13:15 96 02/22/17 07:17 Room Air Assessment & Plan Problem List: (1) Bipolar affective disorder, current episode manic with psychotic symptoms ICD Code: F31.2 (2) Bipolar affective, manic, severe ICD Code: F31.13 Assessment & Plan Estimated LOS: days patient remains manic and psychotic, will restart medications per the med reconciliation. Will hospitalist consult was. She continues also delusional quite silly and at times childlike Justification for Cont. Inpt. At this time patient will decompensate if placed in the lower level of care Discharge Planning To be determined Request HC Surrog/Guard Advoc?: No Caliendo,Tim E. MD Feb 23, 2017 13:15
[2017-02-23 13:20] LABS: ALKALINE PHOSPHATASE 80 U/L (45-117); ALT (GPT) 18 U/L (10-53); ANION GAP 7 MEQ/L (5-15); AST (GOT) 21 U/L (15-37); BICARBONATE 23.6 MEQ/L (21.0-32.0); BLOOD UREA NITROGEN 23 MG/DL (7-18); CALCIUM-PROTEIN CORRECTED 8.6 MG/DL (8.5-10.1); CHLORIDE 111 MEQ/L (98-107); GLOMERULAR FILTRATION RATE 54 ML/MIN (>89); LDL CHOLESTEROL 104 MG/DL (0-99); POTASSIUM 3.6 MEQ/L (3.5-5.1); SODIUM (NA) 142 MEQ/L (136-145)
[2017-02-23] MEDS: THIOTHIXENE 10 MG CAP PO SCH (16:00)
[2017-02-23 16:48] VITALS: BP 146/77; PULSE 96; RESP 20; TEMP 98.4; O2SAT 98
[2017-02-23 16:51] LABS: HEMOGLOBIN A1b 2.1 %; HEMOGLOBIN Ao 82.9 %; HEMOGLOBIN LA1C 2.2 %; HEMOGLOBIN P3 4.3 %
[2017-02-23 17:01] VITALS: BP 130/85; PULSE 72; RESP 18; TEMP 99.1; O2SAT 96
[2017-02-23] MEDS: DIVALPROEX SODIUM E.R. 500 MG TAB PO SCH (21:31)
[2017-02-23] MEDS: OLANZapine 10 MG TAB PO SCH (21:31)
[2017-02-23] MEDS: LORazepam 1 MG TAB PO PRN (21:39)
[2017-02-24 06:05] VITALS: BP 122/64; PULSE 80; RESP 22; TEMP 98.3
[2017-02-24] MEDS: INSULIN ASPART SUPPLEMENTAL SCALE SQ SCH ×4 (06:16→20:37)
[2017-02-24] MEDS: THIOTHIXENE 10 MG CAP PO SCH ×2 (09:03→16:00)
[2017-02-24] MEDS: METOPROLOL TARTRATE 25 MG TAB PO SCH ×2 (09:04→20:37)
[2017-02-24] MEDS: amLODIPine BESYLATE 5 MG TAB PO SCH (09:04)
--- NOTE | 2017-02-24 12:10 | HHI.PYPN ---
Subjective Remarks Patient seen in [place] with floor staff, patient continues somewhat silly and childlike at times selectively mute at times just mouthing statements about any verbalization. Patient compliant medication. Will recheck Depakote blood level on Tuesday 02/27 Review of Systems Except as stated in HPI: all other systems reviewed are Neg Objective Alert: Yes [place]: Person Mood: Anxious, Happy, Other (superficial silly) Affect: Labile, Manic Memory Intact: Comment Hallucinations: Auditory (very poor vague) Delusions: Yes Delusion Type: Paranoid Suicidal: Ideation (denies) Homicidal: Ideation (denies) Insight/Judgment Very poor Vitals/IOs Vital Signs Date Time Temp Pulse Resp B/P Pulse Ox O2 Delivery O2 Flow Rate FiO2 02/24/17 06:05 98.3 80 22 122/64 02/23/17 17:01 96 02/22/17 07:17 Room Air Intake and Output 02/23/17 02/23/17 02/24/17 08:00 16:00 00:00 Intake Total 240 ml 150 ml Balance 240 ml 150 ml Assessment & Plan Problem List: (1) Bipolar affective disorder, current episode manic with psychotic symptoms ICD Code: F31.2 (2) Bipolar affective, manic, severe ICD Code: F31.13 Assessment & Plan Estimated LOS: days patient continues delusional silly childlike somewhat intrusive. We'll be checking Depakote blood level over 3 days Justification for Cont. Inpt. At this time patient will decompensate and placed in a lower level of care Discharge Planning To be determined Request HC Surrog/Guard Advoc?: Tim Bonilla MD Feb 24, 2017 12:10
--- NOTE | 2017-02-24 14:42 | EKG ---
Date Performed: 02/23/2017 Time Performed: 14:34:58 PTAGE: 66 years EKG: Sinus rhythm POSSIBLE LEFT ATRIAL ENLARGEMENT MARKED LEFT AXIS DEVIATION POSSIBLE LEFT VENTRICULAR HYPERTROPHY PO SSIBLE ANTEROSEPTAL MYOCARDIAL INFARCTION , OF INDETERMINATE AGE ABNORMAL ECG PREVIOUS TRACING : 02/22/2017 04.47 Since previous tracing, no significant change noted DOCTOR: Osiel Bridges Interpretating Date/Time 02/24/2017 14:41:00
--- NOTE | 2017-02-24 14:49 | PD.PSY.CON ---
Provisional Diagnosis Admission Date Feb 22, 2017 at 11:53 [place]. Bipolar, manic History of Present Illness Service Psychiatry Consult Requested By Reason for Consult Second opinion Primary Care Physician DO MIRA Franks This is a 66-year-old female, well known to this physician and the staff here at [facility]. She has been seen in the emergency department and admitted to the adult service on multiple occasions, including several months ago. She has a history of noncompliance with psychotropic medicines and once again this appears to be the case prior to this ED visit and admission. Patient also has a history of diabetes and renal disease which she does not take care of. She lives with her daughter, who is hearing impaired. The patient is unable to care for herself at this time. Patient was interviewed by this physician and declines to discuss her symptoms or reasons for being here. She repeatedly demands that Dr. Costa Colón provide her with ECT, which she has undergone in the past. She is unable to engage in a cogent conversation but does admit to not sleeping or eating or drinking fluids for the last 5 or 6 days. She remains rather disorganized in her speech. When asked about her current condition she states she is in "[place]". She also reports that she is "not allowed" to sleep. She refuses to speak in detail to any evaluater. She is disheveled, unkempt and obviously too disorganized to care for herself.. Patient seen today for second opinion, patient is resistant, oppositional, selectively mute. She seems to be internally stimulated, laughing inappropriately, disorganized. Review of Systems ROS Limitations: Uncooperative Past Family Social History Coded Allergies: Sulfa (Sulfonamide Antibiotics) (Verified Allergy, Severe, Hives, 03/08/17) ibuprofen (Verified Allergy, Severe, HIVES, 03/08/17) penicillin G (Verified Allergy, Severe, HIVES, 03/08/17) Active Scripts Thiothixene (Thiothixene) 10 Mg Cap, 10 MG PO BID@08,16 for health, #60 CAP 0 Refills Prov:Tim Ca MD 03/01/17 Potassium Chloride Microencaps (Potassium Chloride Microencaps) 20 Meq Tab, 20 MEQ PO DAILY for health, #30 TAB 0 Refills Prov:Tim Ca MD 03/01/17 Olanzapine (Olanzapine) 15 Mg Tab, 15 MG PO BID for health, #60 TAB 0 Refills Prov:Tim Ca MD 03/01/17 Metoprolol Tartrate (Metoprolol Tartrate) 25 Mg Tab, 12.5 MG PO 1/2 po q 12 h for health, #30 TAB 0 Refills Prov:Tim Ca MD 03/01/17 Divalproex ER (Depakote ER) 500 Mg Diana, 1000 MG PO 2 po hshealth for health, #60 TAB 0 Refills Prov:Tim Ca MD 03/01/17 Amlodipine (Norvasc) 5 Mg Tab, 5 MG PO DAILY for health, #30 TAB 0 Refills Prov:Tim Ca MD 03/01/17 Thiothixene (Thiothixene) 10 Mg Cap, 10 MG PO DAILY@08,16 for Agitation, #60 CAP Prov:Abdoulaye Barclay DO 11/06/16 Divalproex ER (Depakote ER) 500 Mg Diana, 1000 MG PO HS for Anxiety and/or Insomnia, #28 TAB Prov:Abdoulaye Barclay DO 11/06/16 Amlodipine (Norvasc) 5 Mg Tab, 5 MG PO DAILY for Blood Pressure Management for 28 Days, BOTTLE 0 Refills Prov:Abdoulaye Barclay DO 11/06/16 Thiothixene (Thiothixene) 10 Mg Cap, 10 MG PO DAILY@08,16 for Mental Health for 0 Days, CAP 0 Refills Prov:Osiel Davis MD 11/01/16 Olanzapine Odt (Zyprexa Zydis) 20 Mg Tab, 20 MG PO HS for Mental Health for 0 Days, TAB 0 Refills Prov:Osiel Davis MD 11/01/16 Metoprolol Tartrate (Metoprolol Tartrate) 25 Mg Tab, 12.5 MG PO Q12HR for Blood Pressure Management for 0 Days, TAB 0 Refills Prov:Osiel Davis MD 11/01/16 Divalproex ER (Depakote ER) 500 Mg Diana, 1000 MG PO HS for Mental Health for 0 Days, TAB 0 Refills Prov:Osiel Davis MD 11/01/16 Reported Medications Nitrofurantoin Monohydrate Macrocrystals (Macrobid) 100 Mg Cap, 100 MG PO BID for Infection, #15 CAP 0 Refills 11/06/16 Olanzapine (Zyprexa) 20 Mg Tab, 20 MG PO HS, #30 TAB 0 Refills 11/06/16 Current Medications Medications (Trade) Dose Ordered Sig/Valentina Route Start Time Stop Time Status Last Admin (Ativan) 1 mg Q6H PRN PO 02/22/17 12:00 02/23/17 21:39 (Ativan Inj) 1 mg Q6H PRN IM 02/22/17 12:00 (Ativan) 0.5 mg Q12H PRN PO 02/22/17 12:00 (Ativan Inj) 0.5 mg Q12H PRN IM 02/22/17 12:00 (Benadryl) 50 mg Q6H PRN PO 02/22/17 12:00 (Benadryl Inj) 50 mg Q6H PRN IM 02/22/17 12:00 (Milk Of Magnesia Liq) 30 ml DAILY PRN PO 02/22/17 12:00 (Mag-Al Plus Susp Liq) 30 ml Q6H PRN PO 02/22/17 12:00 (Desyrel) 50 mg HS PRN PO 02/22/17 12:00 (Lopressor) 12.5 mg Q12HR PO 02/23/17 09:00 02/24/17 09:04 (Pill Splitter) 1 ea UNSCH PRN OTHER 02/23/17 07:30 (D50w (Vial) Inj) 50 ml UNSCH PRN IV 02/23/17 11:15 (Glucagon Inj) 1 mg UNSCH PRN OTHER 02/23/17 11:15 (Tylenol) 650 mg Q4H PRN PO 02/23/17 13:15 (Norvasc) 5 mg DAILY PO 02/23/17 13:15 02/24/17 09:04 (Depakote Er) 1,000 mg HS PO 02/23/17 21:00 02/23/17 21:31 (ZyPREXA) 20 mg HS PO 02/23/17 21:00 02/23/17 21:31 (Navane) 10 mg BID@08,16 PO 02/23/17 16:00 02/24/17 09:03 Patient's Strengths (min. 2) Resilient and has access to healthcare. Physical Exam Vital Signs Vital Signs Date Time Temp Pulse Resp B/P Pulse Ox O2 Delivery O2 Flow Rate FiO2 02/24/17 06:05 98.3 80 22 122/64 02/23/17 17:01 96 02/22/17 07:17 Room Air I/O 02/23/17 02/23/17 02/24/17 08:00 16:00 00:00 Intake Total 240 ml 150 ml Balance 240 ml 150 ml Mental Status Examination Speech: Incoherent Orientation: Person Memory: Unremarkable Thought Process: Loose Association Thought Content: Bizarre thinking, Ideas of Reference Hallucination Type: None Attention and Concentration: Easily Distracted Suicidal Ideation: No Previous Suicide Attempts: No Homicidal Ideation: No Previous Homicide Attempts: No Insight: Poor Judgment: Unrealistic Affect: Irritable Mood: Irritable Motor Activity: Normal gait Assessment & Plan Problem List: (1) Bipolar affective disorder, current episode manic with psychotic symptoms Assessment & Plan: I have seen and examined this patient, reviewed the documentation of Dr. Deepika Ca, and I agree and concur with [facility] assessment and plan. ICD Code: F31.2 - Bipolar affective disorder, current episode manic with psychotic symptoms (2) Bipolar affective, manic, severe ICD Code: F31.13 - Bipolar disorder, current episode manic without psychotic features, severe Assessment & Plan Estimated LOS: days Request HC Surrog/Guard Advoc?: Anatoliy Parrish MD Feb 24, 2017 14:49
[2017-02-24 17:29] VITALS: BP 145/85; PULSE 100; RESP 20; TEMP 99.4; O2SAT 96
[2017-02-24] MEDS: DIVALPROEX SODIUM E.R. 500 MG TAB PO SCH (20:37)
[2017-02-24] MEDS: OLANZapine 10 MG TAB PO SCH (20:37)
[2017-02-24] MEDS: LORazepam 1 MG TAB PO PRN (22:27)
[2017-02-25] MEDS: diphenhydrAMINE HCL 50 MG CAP PO PRN ×2 (02:56→20:28)
[2017-02-25] MEDS: INSULIN ASPART SUPPLEMENTAL SCALE SQ SCH ×4 (05:44→20:38)
[2017-02-25 05:52] VITALS: BP 92/50; PULSE 94; RESP 16; TEMP 98.7; O2SAT 96
[2017-02-25 08:56] VITALS: BP 121/59; PULSE 97
[2017-02-25] MEDS: THIOTHIXENE 10 MG CAP PO SCH ×2 (09:00→18:19)
[2017-02-25 10:28] VITALS: BP 127/78; PULSE 91
[2017-02-25] MEDS: METOPROLOL TARTRATE 25 MG TAB PO SCH ×2 (10:39→20:37)
[2017-02-25] MEDS: amLODIPine BESYLATE 5 MG TAB PO SCH (10:39)
--- NOTE | 2017-02-25 13:12 | HHI.PYPN ---
Subjective Remarks Patient was seen and case discussed with nursing. Patient remains labile, elevated and euphoric. His compliant with her medications. Has not had any verbal or physical aggressive behaviors. Denies suicidal ideations intent or plan. Responding to internal stimuli Objective Alert: Yes [place]: Person, Place Mood: Other (elevated) Affect: Labile, Manic Memory Intact: Comment Hallucinations: Auditory (very poor vague) Delusions: Yes Delusion Type: Paranoid (to internal stimuli) Suicidal: Ideation (denies) Homicidal: Ideation (denies) Insight/Judgment Poor Vitals/IOs Vital Signs Date Time Temp Pulse Resp B/P Pulse Ox O2 Delivery O2 Flow Rate FiO2 02/25/17 10:28 91 127/78 02/25/17 05:52 98.7 16 96 02/22/17 07:17 Room Air Intake and Output 02/24/17 02/24/17 02/24/17 07:59 15:59 23:59 Intake Total 120 ml 730 ml Balance 120 ml 730 ml Assessment & Plan Problem List: (1) Bipolar affective disorder, current episode manic with psychotic symptoms ICD Code: F31.2 (2) Bipolar affective, manic, severe ICD Code: F31.13 Assessment & Plan Continue current treatment plan Justification for Cont. Inpt. Patient will decompensate in a less restrictive setting Request HC Surrog/Guard Advoc?: No Cody Chaidez DO Feb 25, 2017 13:12
[2017-02-25 20:00] VITALS: BP 123/62; PULSE 88; RESP 16; TEMP 97; O2SAT 99
[2017-02-25] MEDS: OLANZapine 10 MG TAB PO SCH (20:28)
[2017-02-25] MEDS: DIVALPROEX SODIUM E.R. 500 MG TAB PO SCH (20:28)
[2017-02-26 06:05] VITALS: BP 124/62; PULSE 83; RESP 16; TEMP 97.8; O2SAT 95
[2017-02-26] MEDS: INSULIN ASPART SUPPLEMENTAL SCALE SQ SCH ×4 (06:32→20:27)
[2017-02-26] MEDS: THIOTHIXENE 10 MG CAP PO SCH ×2 (08:00→16:47)
[2017-02-26] MEDS: METOPROLOL TARTRATE 25 MG TAB PO SCH ×2 (09:00→20:27)
[2017-02-26] MEDS: amLODIPine BESYLATE 5 MG TAB PO SCH (09:00)
--- NOTE | 2017-02-26 14:21 | HHI.PYPN ---
Subjective Remarks Patient was seen and case discussed with nursing. Patient has been labile with verbal outbursts per nursing. Per reports she was screaming all night and in the morning. During this interview she is pleasant and cooperative. He remains loose and grossly psychotic. Alert and oriented 2. Compliant with medications Objective Alert: Yes [place]: Person, Place Mood: Other (elevated) Affect: Labile Memory Intact: Comment Hallucinations: Auditory (very poor vague) Delusions: Yes Delusion Type: Paranoid (to internal stimuli) Suicidal: Ideation (denies) Homicidal: Ideation (denies) Insight/Judgment Poor Vitals/IOs Vital Signs Date Time Temp Pulse Resp B/P (MAP) Pulse Ox O2 Delivery O2 Flow Rate FiO2 02/26/17 06:05 97.8 83 16 124/62 (82) 95 02/22/17 07:17 Room Air Intake and Output 02/26/17 02/26/17 02/27/17 08:00 16:00 00:00 Intake Total 660 ml Balance 660 ml Assessment & Plan Problem List: (1) Bipolar affective disorder, current episode manic with psychotic symptoms ICD Codes: F31.2 - Bipolar affective disorder, current episode manic with psychotic symptoms Status: Chronic (2) Bipolar affective, manic, severe ICD Codes: F31.13 - Bipolar disorder, current episode manic without psychotic features, severe Status: Acute Assessment & Plan Continue current treatment plan Justification for Cont. Inpt. Patient would decompensate in a less restrictive setting Request HC Surrog/Guard Advoc?: No Cody Chaidez DO Feb 26, 2017 14:21
[2017-02-26 18:00] VITALS: BP 94/58; PULSE 80; RESP 17; TEMP 96.6; O2SAT 95
[2017-02-26 18:01] VITALS: BP 94/58; PULSE 80; RESP 17; TEMP 96.6; O2SAT 95
[2017-02-26] MEDS: DIVALPROEX SODIUM E.R. 500 MG TAB PO SCH (20:27)
[2017-02-26] MEDS: OLANZapine 10 MG TAB PO SCH (20:27)
[2017-02-27 06:22] VITALS: BP 120/73; PULSE 108; RESP 17; TEMP 97.9
[2017-02-27] MEDS: INSULIN ASPART SUPPLEMENTAL SCALE SQ SCH ×4 (06:36→21:20)
[2017-02-27] MEDS: METOPROLOL TARTRATE 25 MG TAB PO SCH ×2 (09:13→21:21)
[2017-02-27] MEDS: THIOTHIXENE 10 MG CAP PO SCH ×2 (09:13→16:00)
[2017-02-27] MEDS: amLODIPine BESYLATE 5 MG TAB PO SCH (09:13)
--- NOTE | 2017-02-27 09:59 | HHI.PYPN ---
Subjective Remarks Patient seen in [place] in [facility] chair with nurse Tonya, chart review, patient compliant medications. Patient's Depakote level drawn on 02/27 is 86. Patient alert continues superficial silly somewhat childlike whispering as of therapy much confidential issues she wishes to discuss with me. Though she is markedly disorganized and tangential. The first time continue treatment Review of Systems Except as stated in HPI: all other systems reviewed are Neg Objective Alert: Yes [place]: Person, Place Mood: Other (elevated) Affect: Labile Memory Intact: Comment Hallucinations: Auditory (very poor vague) Delusions: Yes Delusion Type: Paranoid (to internal stimuli) Suicidal: Ideation (denies) Homicidal: Ideation (denies) Insight/Judgment Very poor Labs Test 02/27/17 07:15 Valproic Acid (Depakene) Level 86 MCG/ML Vitals/IOs Vital Signs Date Time Temp Pulse Resp B/P (MAP) Pulse Ox O2 Delivery O2 Flow Rate FiO2 02/27/17 06:22 97.9 108 17 120/73 (89) 02/26/17 18:01 95 Assessment & Plan Problem List: (1) Bipolar affective disorder, current episode manic with psychotic symptoms ICD Codes: F31.2 - Bipolar affective disorder, current episode manic with psychotic symptoms Status: Chronic Assessment & Plan Estimated LOS: days patient remains somewhat psychotic delusional intense disorganized. Compliant medications. For now continue treatment. Justification for Cont. Inpt. At this time patient will decompensate the place to the lower level of care Discharge Planning To be determined Request HC Surrog/Guard Advoc?: No Tim Ca MD Feb 27, 2017 09:59
[2017-02-27] MEDS: LORazepam 1 MG TAB PO PRN (12:39)
[2017-02-27 18:09] VITALS: BP 118/65; PULSE 109; RESP 18; TEMP 97.9; O2SAT 97
[2017-02-27] MEDS: DIVALPROEX SODIUM E.R. 500 MG TAB PO SCH (21:21)
[2017-02-27] MEDS: OLANZapine 10 MG TAB PO SCH (21:22)
[2017-02-28 06:15] VITALS: BP 115/68; PULSE 92; RESP 18; TEMP 97.5; O2SAT 95
[2017-02-28] MEDS: INSULIN ASPART SUPPLEMENTAL SCALE SQ SCH ×4 (06:25→20:56)
[2017-02-28] MEDS: METOPROLOL TARTRATE 25 MG TAB PO SCH ×2 (08:56→20:24)
[2017-02-28] MEDS: amLODIPine BESYLATE 5 MG TAB PO SCH (08:57)
[2017-02-28] MEDS: THIOTHIXENE 10 MG CAP PO SCH ×2 (08:57→16:17)
[2017-02-28 09:28] LABS: AUTOMATED NEUTROPHIL # 2.2 TH/MM3 (1.8-7.7); BASOPHIL % 0.7 % (0.0-2.0); EOSINOPHIL # 0.1 TH/MM3 (0-0.4); HEMATOCRIT 35.5 % (35.0-46.0); HEMO FLAGS DIFF FINAL; LYMPH % 20.4 % (9.0-44.0); LYMPHOCYTE # 0.7 TH/MM3 (1.0-4.8); MEAN CELL VOLUME 86.1 FL (80.0-100.0); MEAN CORPUSCULAR HEMOGLOBIN 28.4 PG (27.0-34.0); MONO % 14.9 % (0.0-8.0); PLATELET COUNT 141 TH/MM3 (150-450); RED BLOOD COUNT 4.13 MIL/MM3 (4.00-5.30); RED CELL DISTRIBUTION WIDTH 13.4 % (11.6-17.2); WHITE BLOOD COUNT 3.6 TH/MM3 (4.0-11.0)
--- NOTE | 2017-02-28 09:34 | HHI.PR ---
Subjective Remarks Patient seen in common room. Denies any CP or SOB. Patient discussing wanting to get ECT done. Objective Vital Signs Date Time Temp Pulse Resp B/P (MAP) Pulse Ox O2 Delivery O2 Flow Rate FiO2 02/28/17 06:15 97.5 92 18 115/68 (84) 95 02/27/17 18:09 97.9 109 18 118/65 (82) 97 I/O 02/27/17 02/27/17 02/27/17 02/28/17 02/28/17 02/28/17 07:00 15:00 23:00 07:00 15:00 23:00 Intake Total 940 ml 240 ml Balance 940 ml 240 ml Intake Oral 940 ml 240 ml # Voids 2 2 2 Result Diagram: 02/28/17 0858 Objective Remarks GENERAL: Alert and cooperative SKIN: Warm and dry. HEAD: Normocephalic. EYES: No scleral icterus. No injection or drainage. NECK: Supple, trachea midline. No JVD or lymphadenopathy. CARDIOVASCULAR: Regular rate and rhythm without murmurs, gallops, or rubs. RESPIRATORY: Breath sounds equal bilaterally. No accessory muscle use. GASTROINTESTINAL: Abdomen soft, non-tender, nondistended. MUSCULOSKELETAL: No cyanosis, or edema. BACK: Nontender without obvious deformity. No CVA tenderness. Assessment and Plan Problem List: (1) Hypertension ICD Codes: I10 - Hypertension Status: Acute (2) Bipolar disorder ICD Codes: F31.9 - Bipolar disorder, unspecified Status: Acute (3) Thrombocytopenia ICD Codes: D69.6 - Thrombocytopenia Status: Acute (4) Sinus tachycardia ICD Codes: R00.0 - Tachycardia, unspecified Status: Acute (5) Non-insulin dependent type 2 diabetes mellitus ICD Codes: E11.9 - Non-insulin dependent type 2 diabetes mellitus Status: Chronic Assessment and Plan 02/23 HTN: Blood pressure 114/65 but HR 96 this AM. HR as high as 120 yesterday medication reconciled and metoprolol resumed. ECG revealed ST Diabetes: Blood sugar elevated yesterday at 234. BS ordered AC and HS with SS. On medication record no diabetic medication noted. Will obtain BS if able and add medication as needed Bipolar disordered: Patient is alert and cooperative will defer to psych for medications. Thrombocytopenia: PLT 127 on admission will continue to monitor labs are pending. Elevated renal indices: Fluids encouraged. Labs are pending for today. 02/28 VSS and patient is afebrile. HR has improved. Diabetes: Blood sugars well controlled all under 200 over the past 24 hours. Bipolar disordered: Psych managing. Patient in good spirits when rounding. Talked extensively about ECT she has received in the past. WBC 3.6, and HGB 11.7, BMP is still pending. I and the PASTE UP COPY CAMERA OPERATOR have both examined this patient and reviewed this note and I agree with these findings and plan of care. Odette Turner. PASTE UP COPY CAMERA OPERATOR Feb 28, 2017 09:34
[2017-02-28 09:51] LABS: BICARBONATE 21.8 MEQ/L (21.0-32.0); POTASSIUM 3.3 MEQ/L (3.5-5.1)
--- NOTE | 2017-02-28 12:26 | HHI.PYPN ---
Subjective Remarks Patient seen in day room with nurse Henderson, chart review, patient compliant medication. Patient continues intense superficial silly and somewhat childlike today focusing on her desire to get ECT, saying that I should call Dr. Costa Colón soon he can perform it on her today. I did explain that Dr. Colón is no longer associated with [facility] we do not to ECT, lateral she is not a candidate for it. She became somewhat angry with me at that time will increase Zyprexa to 15 mg twice a day starting today Review of Systems Except as stated in HPI: all other systems reviewed are Neg Objective Alert: Yes [place]: Person, Place Mood: Other (elevated) Affect: Labile Memory Intact: Comment Hallucinations: Auditory (very poor vague) Delusions: Yes Delusion Type: Paranoid (to internal stimuli) Suicidal: Ideation (denies) Homicidal: Ideation (denies) Insight/Judgment Very poor Labs Test 02/28/17 08:58 White Blood Count 3.6 TH/MM3 Red Blood Count 4.13 MIL/MM3 Hemoglobin 11.7 GM/DL Hematocrit 35.5 % Mean Corpuscular Volume 86.1 FL Mean Corpuscular Hemoglobin 28.4 PG Mean Corpuscular Hemoglobin Concent 33.0 % Red Cell Distribution Width 13.4 % Platelet Count 141 TH/MM3 Mean Platelet Volume 10.0 FL Neutrophils (%) (Auto) 61.0 % Lymphocytes (%) (Auto) 20.4 % Monocytes (%) (Auto) 14.9 % Eosinophils (%) (Auto) 3.0 % Basophils (%) (Auto) 0.7 % Neutrophils # (Auto) 2.2 TH/MM3 Lymphocytes # (Auto) 0.7 TH/MM3 Monocytes # (Auto) 0.5 TH/MM3 Eosinophils # (Auto) 0.1 TH/MM3 Basophils # (Auto) 0.0 TH/MM3 CBC Comment DIFF FINAL Differential Comment Blood Urea Nitrogen 16 MG/DL Creatinine 1.08 MG/DL Random Glucose 207 MG/DL Calcium Level 8.7 MG/DL Sodium Level 136 MEQ/L Potassium Level 3.3 MEQ/L Chloride Level 102 MEQ/L Carbon Dioxide Level 21.8 MEQ/L Anion Gap 12 MEQ/L Estimat Glomerular Filtration Rate 51 ML/MIN Vitals/IOs Vital Signs Date Time Temp Pulse Resp B/P (MAP) Pulse Ox O2 Delivery O2 Flow Rate FiO2 02/28/17 06:15 97.5 92 18 115/68 (84) 95 Intake and Output 02/28/17 02/28/17 03/01/17 08:00 16:00 00:00 Intake Total 240 ml Balance 240 ml Assessment & Plan Problem List: (1) Bipolar affective disorder, current episode manic with psychotic symptoms ICD Codes: F31.2 - Bipolar affective disorder, current episode manic with psychotic symptoms Status: Chronic Assessment & Plan Estimated LOS: days patient continues intense psychotic childlike paranoid. She medication adjustments above Justification for Cont. Inpt. At this time patient will decompensate if placed in a lower level of care Discharge Planning To be determined Request HC Surrog/Guard Advoc?: No Tim Ca MD Feb 28, 2017 12:25
[2017-02-28 17:00] VITALS: BP 103/57; PULSE 99; RESP 18; TEMP 99.3; O2SAT 95
[2017-02-28] MEDS: DIVALPROEX SODIUM E.R. 500 MG TAB PO SCH (20:24)
[2017-03-01] MEDS ORDERED: POTASSIUM CHLORIDE 20 MEQ CONTROLLED RELEASE TAB PO ONE (05:45)
[2017-03-01 05:50] VITALS: BP 106/55; PULSE 100; RESP 15; TEMP 97.8; O2SAT 97
[2017-03-01] MEDS: INSULIN ASPART SUPPLEMENTAL SCALE SQ SCH ×2 (06:04→11:00)
[2017-03-01] MEDS: amLODIPine BESYLATE 5 MG TAB PO SCH (08:11)
[2017-03-01] MEDS: METOPROLOL TARTRATE 25 MG TAB PO SCH (08:13)
[2017-03-01] MEDS ORDERED: POTASSIUM CHLORIDE 20 MEQ CONTROLLED RELEASE TAB PO SCH (09:00)
[2017-03-01] MEDS: THIOTHIXENE 10 MG CAP PO SCH (09:30)
--- NOTE | 2017-03-01 10:20 | HHI.PYPN ---
Subjective Remarks Patient seen in dayroom with nurse Mini and counselor Stephanie, chart review, patient compliant medications. Patient's Depakote level was 86 on 02/27. Patient continues superficial and silly though somewhat less intense than yesterday For now continue treatment Review of Systems Except as stated in HPI: all other systems reviewed are Neg Objective Alert: Yes [place]: Person, Place Mood: Other (elevated) Affect: Labile Memory Intact: Comment Hallucinations: Auditory (very poor vague) Delusions: Yes Delusion Type: Paranoid (to internal stimuli) Suicidal: Ideation (denies) Homicidal: Ideation (denies) Insight/Judgment Very poor Vitals/IOs Vital Signs Date Time Temp Pulse Resp B/P (MAP) Pulse Ox O2 Delivery O2 Flow Rate FiO2 03/01/17 05:50 97.8 100 15 106/55 (72) 97 Intake and Output 03/01/17 03/01/17 03/01/17 07:59 15:59 23:59 Intake Total 360 ml Balance 360 ml Assessment & Plan Problem List: (1) Bipolar affective disorder, current episode manic with psychotic symptoms ICD Codes: F31.2 - Bipolar affective disorder, current episode manic with psychotic symptoms Status: Chronic Assessment & Plan Estimated LOS: days patient remains intense childlike somewhat intrusive and psychotic. For now continue treatment Justification for Cont. Inpt. At this time patient will decompensate placed in a lower level of care Discharge Planning To be determined Request HC Surrog/Guard Advoc?: No Tim Ca MD Mar 01, 2017 10:20
[2017-03-01] MEDS ORDERED: AMLO5 PO (10:42)
[2017-03-01] MEDS ORDERED: THIO10CA PO (10:42)
[2017-03-01] MEDS ORDERED: OLAN15TA PO (10:42)
[2017-03-01] MEDS ORDERED: POTA20TA5 PO (10:42)
[2017-03-01] MEDS ORDERED: DEPA500T3 PO (10:42)
[2017-03-01] MEDS ORDERED: METO25TA3 PO (10:42)
--- NOTE | 2017-03-01 10:52 | HHI.DS ---
Psychiatry Discharge Summary Inpatient Psychiatric care?: Yes Advance Directive: No Reason Not Provided: . Mental Health AdvanceDirective: No Health Care Proxy: No Admission Admission Date Feb 22, 2017 at 11:53 Admission Diagnosis: (1) Bipolar affective disorder, current episode manic with psychotic symptoms ICD Code: F31.2 - Bipolar affective disorder, current episode manic with psychotic symptoms Brief History This is a 66-year-old female, well known to this physician and the staff here at [facility]. She has been seen in the emergency department and admitted to the adult service on multiple occasions, including several months ago. She has a history of noncompliance with psychotropic medicines and once again this appears to be the case prior to this ED visit and admission. Patient also has a history of diabetes and renal disease which she does not take care of. She lives with her daughter, who is hearing impaired. The patient is unable to care for herself at this time. Patient was interviewed by this physician and declines to discuss her symptoms or reasons for being here. She repeatedly demands that Dr. Costa Colón provide her with ECT, which she has undergone in the past. She is unable to engage in a cogent conversation but does admit to not sleeping or eating or drinking fluids for the last 5 or 6 days. She remains rather disorganized in her speech. When asked about her current condition she states she is in "[place]". She also reports that she is "not allowed" to sleep. She refuses to speak in detail to any evaluater. She is disheveled, unkempt and obviously too disorganized to care for herself.. Patient seen today for second opinion, patient is resistant, oppositional, selectively mute. She seems to be internally stimulated, laughing inappropriately, disorganized. Tobacco Use In Past 30 Days: No Tobacco Past 30 Days Alcohol Use: Never Hospital Course Patient behavior has shown improvement her intrusiveness, childlike behavior have diminished, she is more cooperative, compliant medications. She denies suicidality homicidality. She states her auditory hallucinations are very vague and distant. She has a therapeutic Depakote blood level. Counselor has talked with with her daughter and a caregiver in the home. They feel she is doing better and I willing have her return home today. I do agree at this time feel patient has improved support which can be released from less restrictive setting. We will also make a home health care referral for psychiatric nurse medication management and PT. We'll also arrange appointment with [facility] with [facility]. She'll be given prescriptions for one month's supply of her medications Results Blood Pressure 106 / 55 Vital Signs Date Time Temp Pulse Resp B/P (MAP) Pulse Ox O2 Delivery O2 Flow Rate FiO2 03/01/17 05:50 97.8 100 15 106/55 (72) 97 Laboratory Tests Test 02/27/17 07:15 02/28/17 08:58 White Blood Count 3.6 TH/MM3 (4.0-11.0) Platelet Count 141 TH/MM3 (150-450) Monocytes (%) (Auto) 14.9 % (0.0-8.0) Lymphocytes # (Auto) 0.7 TH/MM3 (1.0-4.8) Creatinine 1.08 MG/DL (0.50-1.00) Random Glucose 207 MG/DL (74-106) Potassium Level 3.3 MEQ/L (3.5-5.1) Estimat Glomerular Filtration Rate 51 ML/MIN (>89) Laboratory Results Test 02/23/17 12:04 02/27/17 07:15 Cholesterol Level 174 MG/DL (120-200) HDL Cholesterol 43.0 MG/DL (40.0-60.0) Hemoglobin A1c 6.8 % (4.3-6.0) LDL Cholesterol 104 MG/DL (0-99) Triglycerides Level 134 MG/DL (42-150) Valproic Acid (Depakene) Level 86 MCG/ML (50-100) Summary of Procedures None done Imaging Last Impressions Head CT 02/22/17 0000 Signed Impressions: Service Date/Time: Wednesday, February 22, 2017 05:28 - CONCLUSION: Stable atrophy. No acute findings in the brain. Jeremy Combs MD Chest X-Ray 02/22/17 0000 Signed Impressions: Service Date/Time: Wednesday, February 22, 2017 04:45 - CONCLUSION: The lungs are clear. Jeremy Combs MD Pending results at discharge: No Medications # of Antipsychotic meds at D/C: 2 Appropriate >1 Antipsych meds?: 1 Approp Antipsych med options 1 - Minimum of three failed multiple trials of monotherapy. 2 - Documented plan to taper to monotherapy due to previous use of multiple meds OR cross-taper in progress at D/C. 3 - Documentation of augmentation of Clozapine. 4 - Justification other than those listed in allowable values 1-3, document here : Discharge Discharge Date: Mar 01, 2017 Discharge Diagnosis: (1) Bipolar affective disorder, current episode manic with psychotic symptoms Diagnosis: Principal ICD Code: F31.2 - Bipolar affective disorder, current episode manic with psychotic symptoms Status: Chronic Mental Status Exam at Disch Alert somewhat superficial silly and childlike white female, she is cooperative with her responses. She is normal active. Mood is euthymic to somewhat intense with increase range intensity of her affect. Speech rate and rhythm are somewhat increased is mildly tangential. There are some vague fleeting auditory hallucinations, no visual hallucinations. No delusions. Insight and judgment is poor to fair cognition grossly intact Pt Condition on Discharge: Stable Discharge Disposition: Discharge Home Discharge Instructions Diet Instructions: As Tolerated, No Restrictions Activities you can perform: Regular-No Restrictions Scheduled Appointment: refer home health care, follow-up saafe Discharge Time > 30 minutes Discharge/Advance Care Plan Health Problems: (1) Bipolar affective disorder, current episode manic with psychotic symptoms Goals to promote your health * To prevent worsening of your condition and complications * To maintain your health at the optimal level Directions to meet your goals Take your medications as prescribed Follow your dietary instruction Follow activity as directed Keep your appointments as scheduled Take your immunizations and boosters as scheduled If your symptoms worsen call your PCP, if no PCP go to Urgent Care Center or Emergency Room For 30/01 questions related to your inpatient stay or results of tests pending at discharge, please contact Dr. Tim Ca at Smoking is Dangerous to Your Health. Avoid second hand smoking Tim Ca MD Mar 01, 2017 10:52
== END 2017-03-01 15:50 | disposition home or self-care (01) | DRG 885 ==
LOC: NEPD 04:26 → NEDA 11:53 → H250 13:15
PROVIDERS: ADMIT Psychiatry & Neurology Psychiatry; ATTEND Psychiatry & Neurology Psychiatry
DX: F31.2 Bipolar disorder, current episode manic severe with psychotic features (principal); D69.6 Thrombocytopenia, unspecified; E11.65 Type 2 diabetes mellitus with hyperglycemia; Z91.19 Patient's noncompliance with other medical treatment and regimen; R00.0 Tachycardia, unspecified; I10 Essential (primary) hypertension; N28.9 Disorder of kidney and ureter, unspecified; E66.3 Overweight; Z68.27 Body mass index [BMI] 27.0-27.9, adult
CPT/HCPCS: 70450; 71010; 80048; 80053; 80061; 80164; 80307; 81001; 82306; 82550; 82607; 82652; 82948; 83036; 83735; 83880; 84155; 84443; 85025; 93005; 96372; J1815; J2060; J7030; Q0163

== ENCOUNTER 2017-03-08 14:02 | Observation (INO) | payer MEDICARE, OTHER ==
[~2017-03-08] VITALS: Ht 167.6 cm; Wt 75.0 kg
[~2017-03-08 14:02] MED LIST changes: +OLAN15TA PO; +POTA20TA5 PO
[2017-03-08 14:44] VITALS: BP 114/62; PULSE 116; RESP 18; TEMP 98.8; O2SAT 100
--- NOTE | 2017-03-08 14:56 | PD ---
HPI Chief Complaint: Altered Mental Status Time Seen by Provider: 14:42 Travel History International Travel<30 days: No Contact w/Intl Traveler<30days: No Traveled to known affect area: No History of Present Illness HPI 66 year old female with history of HTN, DVT in the past, diabetes, bipolar disorder presents to the ED for evaluation under a barber act. Pt is unable to concentration on our conversation; she is experiencing flights of ideas, and is a poor historian. She denies pain. Denies illicit drug use, and per the BA, pt has not been compliant with her medication. PFSH Past Medical History Medical History: Unable to Obtain Arthritis: No Asthma: No Autoimmune Disease: No Bipolar Disorder: Yes Anxiety: Yes Depression: Yes Heart Rhythm Problems: No Cancer: No Cardiovascular Problems: Yes (Hx DVT) High Cholesterol: No Chemotherapy: No Chest Pain: No Congestive Heart Failure: No COPD: No Cerebrovascular Accident: No Diabetes: Yes Diminished Hearing: No Endocrine: Yes Gastrointestinal Disorders: No GERD: No Genitourinary: Yes (UTI) Hiatal Hernia: No Hypertension: Yes Immune Disorder: No Kidney Stones: No Musculoskeletal: Yes (right clubbed foot; right hip replacement) Neurologic: No Psychiatric: Yes (Yes - Schizoaffective) Reproductive: No Respiratory: No Migraines: No Radiation Therapy: No Renal Failure: No Seizures: No Sickle Cell Disease: No Sleep Apnea: No Thyroid Disease: No Ulcer: No Tetanus Vaccination: Unknown ?: Not Menopausal: Yes : 2 Para: 2 Miscarriage: 0 : 0 Past Surgical History Surgical History: Unable to Obtain Abdominal Surgery: No AICD: No Arteriovenous Shunt: No Cardiac Surgery: No Ear Surgery: No Endocrine Surgery: No Eye Surgery: No Genitourinary Surgery: No Gynecologic Surgery: No Hysterectomy: No Insulin Pump: No Joint Replacement: No Oral Surgery: No Pacemaker: No Thoracic Surgery: No Other Surgery: Yes (UNABLE TO DETERMINE) Social History Alcohol Use: Yes Tobacco Use: No Substance Use: No Allergies-Medications (Allergen,Severity, Reaction): Coded Allergies: Sulfa (Sulfonamide Antibiotics) (Verified Allergy, Severe, Hives, 03/08/17) ibuprofen (Verified Allergy, Severe, HIVES, 03/08/17) penicillin G (Verified Allergy, Severe, HIVES, 03/08/17) Reported Meds & Prescriptions Reported Meds & Active Scripts Active Thiothixene 10 Mg Cap 10 Mg PO BID@08,16 Potassium Chloride Microencaps 20 Meq Tab 20 Meq PO DAILY Olanzapine 15 Mg Tab 15 Mg PO BID Metoprolol Tartrate 25 Mg Tab 12.5 Mg PO 1/2 PO Q 12 H Depakote ER (Divalproex Sodium) 500 Mg Diana 1,000 Mg PO 2 PO [facility] Norvasc (Amlodipine Besylate) 5 Mg Tab 5 Mg PO DAILY Thiothixene 10 Mg Cap 10 Mg PO DAILY@08,16 Depakote ER (Divalproex Sodium) 500 Mg Diana 1,000 Mg PO HS Norvasc (Amlodipine Besylate) 5 Mg Tab 5 Mg PO DAILY 28 Days Thiothixene 10 Mg Cap 10 Mg PO DAILY@08,16 0 Days Zyprexa Zydis (Olanzapine) 20 Mg Tab 20 Mg PO HS 0 Days Metoprolol Tartrate 25 Mg Tab 12.5 Mg PO Q12HR 0 Days Depakote ER (Divalproex Sodium) 500 Mg Diana 1,000 Mg PO HS 0 Days Reported Macrobid (Nitrofurantoin Monoh/Nitrofur Macro) 100 Mg Cap 100 Mg PO BID Zyprexa (Olanzapine) 20 Mg Tab 20 Mg PO HS Review of Systems ROS Limitations: Psychotic Except as stated in HPI: all other systems reviewed are Neg Physical Exam Exam Limitations: Psychotic Narrative GENERAL: Well nourished female patient with bizarre affect; difficult to have a conversation with; labile moods SKIN: Warm and dry. Erythema of the distal RLE HEAD: Atraumatic. Normocephalic. EYES: Pupils equal and round. No scleral icterus. No injection or drainage. ENT: No nasal bleeding or discharge. Mucous membranes pink and moist. NECK: Trachea midline. No JVD. CARDIOVASCULAR: Tachycardic rate and rhythm. RESPIRATORY: No accessory muscle use. Clear to auscultation. Breath sounds equal bilaterally. GASTROINTESTINAL: Abdomen soft, non-tender, nondistended. Hepatic and splenic margins not palpable. MUSCULOSKELETAL: Extremities without clubbing, cyanosis. 2+ Edema of LLE with associated erythema; no pain to palpation. Distal pulses are palpable. Deformity of right foot NEUROLOGICAL: Awake and alert. No obvious cranial nerve deficits. Motor grossly within normal limits. Five out of 5 muscle strength in the arms and legs. Normal speech. Data Data Last Documented VS Vital Signs Date Time Temp Pulse Resp B/P (MAP) Pulse Ox O2 Delivery O2 Flow Rate FiO2 03/08/17 17:53 82 15 94/55 (68) 98 Room Air 03/08/17 14:44 98.8 Orders Orders Complete Blood Count With Diff (03/08/17 14:16) Basic Metabolic Panel (Bmp) (03/08/17 14:16) Urinalysis - C+S If Indicated (03/08/17 14:16) Psych Screen (03/08/17 14:16) Drug Screen, Random Urine (03/08/17 14:16) Alcohol (Ethanol) (03/08/17 14:16) Us Leg Venous Doppler (03/08/17 ) Blood Culture (03/08/17 14:56) Prothrombin Time / Inr (Pt) (03/08/17 14:56) Act Partial Throm Time (Ptt) (03/08/17 14:56) Chest, Single Ap (03/08/17 14:56) Ecg Monitoring (03/08/17 14:56) Iv Access Insert/Monitor (03/08/17 14:56) Oximetry (03/08/17 14:56) Sodium Chlor 0.9% 1000 Ml Inj (Ns 1000 M (03/08/17 15:00) Lorazepam Inj (Ativan Inj) (03/08/17 15:00) Cath For Specimen (03/08/17 14:58) Aspirin (Aspirin) (03/08/17 16:30) Stocking, [place] Knee Xlg Xlng Pr (03/08/17 16:27) Valproic Acid (Depakene) (03/08/17 16:29) Rivaroxaban (Xarelto) (03/08/17 17:00) Rivaroxaban (Xarelto) (03/09/17 09:00) Admit Order (Ed Use Only) (03/08/17 17:58) Consult Psychiatry (03/08/17 ) Labs Laboratory Tests Test 03/08/17 14:50 03/08/17 16:20 White Blood Count 5.8 TH/MM3 Red Blood Count 4.03 MIL/MM3 Hemoglobin 11.1 GM/DL Hematocrit 34.7 % Mean Corpuscular Volume 86.1 FL Mean Corpuscular Hemoglobin 27.6 PG Mean Corpuscular Hemoglobin Concent 32.1 % Red Cell Distribution Width 13.8 % Platelet Count 298 TH/MM3 Mean Platelet Volume 9.0 FL Neutrophils (%) (Auto) 68.2 % Lymphocytes (%) (Auto) 15.2 % Monocytes (%) (Auto) 15.3 % Eosinophils (%) (Auto) 0.5 % Basophils (%) (Auto) 0.8 % Neutrophils # (Auto) 3.9 TH/MM3 Lymphocytes # (Auto) 0.9 TH/MM3 Monocytes # (Auto) 0.9 TH/MM3 Eosinophils # (Auto) 0.0 TH/MM3 Basophils # (Auto) 0.0 TH/MM3 CBC Comment DIFF FINAL Differential Comment Prothrombin Time 11.3 SEC Prothromb Time International Ratio 1.0 RATIO Activated Partial Thromboplast Time 24.4 SEC Blood Urea Nitrogen 22 MG/DL Creatinine 1.20 MG/DL Random Glucose 147 MG/DL Calcium Level 8.9 MG/DL Sodium Level 139 MEQ/L Potassium Level 4.2 MEQ/L Chloride Level 104 MEQ/L Carbon Dioxide Level 24.8 MEQ/L Anion Gap 10 MEQ/L Estimat Glomerular Filtration Rate 45 ML/MIN Ethyl Alcohol Level LESS THAN 3 MG/DL Urine Color YELLOW Urine Turbidity CLEAR Urine pH 7.0 Urine Specific [place] 1.022 Urine Protein TRACE mg/dL Urine Glucose (UA) NEG mg/dL Urine Ketones NEG mg/dL Urine Occult Blood NEG Urine Nitrite NEG Urine Bilirubin NEG Urine Urobilinogen LESS THAN 2.0 MG/DL Urine Leukocyte Esterase NEG Urine RBC 2 /hpf Urine WBC 1 /hpf Microscopic Urinalysis Comment CULT NOT INDICATED Urine Opiates Screen NEG Urine Barbiturates Screen NEG Urine Amphetamines Screen NEG Urine Benzodiazepines Screen NEG Urine Cocaine Screen NEG Urine Cannabinoids Screen NEG MDM Medical Decision Making Medical Screen Exam Complete: Yes Emergency Medical Condition: Yes Medical Record Reviewed: Yes Differential Diagnosis psychosis vs mena vs personality d/o vs electrolyte abnormality vs uti vs sepsis Narrative Course 66 year old female presents to the ED for evaluation under a BA. Pt appears manic and is a poor historian. History is taken from record. Pt does have erythematous and edematous LLE. US is ordered in addition to lab work for medical clearance. Laboratory Tests Test 03/08/17 14:50 03/08/17 16:20 White Blood Count 5.8 TH/MM3 Red Blood Count 4.03 MIL/MM3 Hemoglobin 11.1 GM/DL Hematocrit 34.7 % Mean Corpuscular Volume 86.1 FL Mean Corpuscular Hemoglobin 27.6 PG Mean Corpuscular Hemoglobin Concent 32.1 % Red Cell Distribution Width 13.8 % Platelet Count 298 TH/MM3 Mean Platelet Volume 9.0 FL Neutrophils (%) (Auto) 68.2 % Lymphocytes (%) (Auto) 15.2 % Monocytes (%) (Auto) 15.3 % Eosinophils (%) (Auto) 0.5 % Basophils (%) (Auto) 0.8 % Neutrophils # (Auto) 3.9 TH/MM3 Lymphocytes # (Auto) 0.9 TH/MM3 Monocytes # (Auto) 0.9 TH/MM3 Eosinophils # (Auto) 0.0 TH/MM3 Basophils # (Auto) 0.0 TH/MM3 CBC Comment DIFF FINAL Differential Comment Prothrombin Time 11.3 SEC Prothromb Time International Ratio 1.0 RATIO Activated Partial Thromboplast Time 24.4 SEC Blood Urea Nitrogen 22 MG/DL Creatinine 1.20 MG/DL Random Glucose 147 MG/DL Calcium Level 8.9 MG/DL Sodium Level 139 MEQ/L Potassium Level 4.2 MEQ/L Chloride Level 104 MEQ/L Carbon Dioxide Level 24.8 MEQ/L Anion Gap 10 MEQ/L Estimat Glomerular Filtration Rate 45 ML/MIN Ethyl Alcohol Level LESS THAN 3 MG/DL Urine Color YELLOW Urine Turbidity CLEAR Urine pH 7.0 Urine Specific [place] 1.022 Urine Protein TRACE mg/dL Urine Glucose (UA) NEG mg/dL Urine Ketones NEG mg/dL Urine Occult Blood NEG Urine Nitrite NEG Urine Bilirubin NEG Urine Urobilinogen LESS THAN 2.0 MG/DL Urine Leukocyte Esterase NEG Urine RBC 2 /hpf Urine WBC 1 /hpf Microscopic Urinalysis Comment CULT NOT INDICATED Urine Opiates Screen NEG Urine Barbiturates Screen NEG Urine Amphetamines Screen NEG Urine Benzodiazepines Screen NEG Urine Cocaine Screen NEG Urine Cannabinoids Screen NEG Last Impressions Chest X-Ray 03/08/17 1456 Signed Impressions: Service Date/Time: Wednesday, March 08, 2017 15:10 - CONCLUSION: No acute disease. Jayme Aguilar MD FACR Lower Extremity Ultrasound 03/08/17 0000 Signed Impressions: Service Date/Time: Wednesday, March 08, 2017 15:12 - CONCLUSION: Acute occlusive thrombus involving the distal superficial femoral vein, popliteal vein, and posterior tibial vein. Jeremy Mosqueda Jr., MD I have discussed the patient with my attending Dr. Beth and the patient will be started on xarelto. Her first dose is given in the ED and a prescription will need to be provided upon discharge. I have contacted psychiatric screener Haylee, in regards to the patient to see if psych will take her, but she is hesitant, so I have called Dr. Barclay and spoken with his MECHANICAL SHOVEL OPERATOR Odette. The patient will be admitted observation to Dr. Barclay and a psychiatric consult placed. Pt remains under a barber act. Diagnosis Primary Impression: Bipolar affective, manic, severe Additional Impression: DVT (deep venous thrombosis) Qualified Codes: I82.412 - Acute embolism and thrombosis of left femoral vein Admitting Information Admitting Physician Requests: Observation Condition: Stable Adrianna Cameron Mar 08, 2017 14:56
[2017-03-08] MEDS ORDERED: LORazepam 2 MG/ML VIAL IV PUSH ONE (15:00)
[2017-03-08] MEDS ORDERED: SODIUM CHLOR 0.9% 1000 ML INJ 1,000 ML IV ONE (15:00)
--- NOTE | 2017-03-08 15:38 | RADRPT ---
EXAM DATE/TIME: 03/08/2017 15:10 [facility] COMPARISON: CHEST SINGLE AP, February 22, 2017, 4:45. INDICATIONS : Short of breath. Altered mental status. MEDICAL HISTORY : Hypertension. Diabetes mellitus type 2. Deep venous thrombosis. SURGICAL HISTORY : None. ENCOUNTER: Initial ACUITY: 1 day PAIN SCORE: 0/10 LOCATION: Bilateral chest FINDINGS: A single view of the chest demonstrates the lungs to be symmetrically aerated without evidence of mas s, infiltrate or effusion. The cardiomediastinal contours are unremarkable. Osseous structures are intact. CONCLUSION: No acute disease. Jayme Aguilar MD FACR on March 08, 2017 at 15:36 Board Certified Radiologist. This report was verified electronically.
[2017-03-08 15:51] LABS: AUTOMATED NEUTROPHIL # 3.9 TH/MM3 (1.8-7.7); BASOPHIL % 0.8 % (0.0-2.0); EOSINOPHIL % 0.5 % (0.0-4.0); HEMATOCRIT 34.7 % (35.0-46.0); HEMO FLAGS DIFF FINAL; LYMPH % 15.2 % (9.0-44.0); LYMPHOCYTE # 0.9 TH/MM3 (1.0-4.8); MEAN CELL VOLUME 86.1 FL (80.0-100.0); MEAN CORPUSCULAR HEMOGLOBIN 27.6 PG (27.0-34.0); MEAN CORPUSCULAR HGB CONC 32.1 % (32.0-36.0); MONO % 15.3 % (0.0-8.0); NEUT % 68.2 % (16.0-70.0); PLATELET COUNT 298 TH/MM3 (150-450); RED BLOOD COUNT 4.03 MIL/MM3 (4.00-5.30); RED CELL DISTRIBUTION WIDTH 13.8 % (11.6-17.2); WHITE BLOOD COUNT 5.8 TH/MM3 (4.0-11.0)
--- NOTE | 2017-03-08 15:56 | RADRPT ---
EXAM DATE/TIME: 03/08/2017 15:12 [facility] COMPARISON: US LEG LEFT VENOUS DOPPLER, April 08, 2016, 8:02. INDICATIONS : Left leg edema. MEDICAL HISTORY : Hypertension. Deep vein thrombosis. Urinary tract infection. Renal disease. Diabetes. Bipola r disorder. Anxiety. Depression. SURGICAL HISTORY : Right hip replacement. ENCOUNTER: Subsequent ACUITY: 2 weeks PAIN SCORE: 0/10 LOCATION: Left leg. TECHNIQUE: Venous ultrasound of the leg was performed from the inguinal ligament to the proximal calf. Real-arley e, color Doppler and spectral tracing, compression and augmentation techniques were used. FINDINGS: Echogenic noncompressible material is seen throughout the distal superficial femoral vein, popliteal vein, and posterior tibial vein. This is occlusive in nature. The remaining venous structures are wit hin normal compressibility. CONCLUSION: Acute occlusive thrombus involving the distal superficial femoral vein, popliteal vein, and posterior tibial vein. Jeremy Mosqueda Jr., MD on March 08, 2017 at 15:51 Board Certified Radiologist. This report was verified electronically.
[2017-03-08 15:57] LABS: ANION GAP 10 MEQ/L (5-15); BICARBONATE 24.8 MEQ/L (21.0-32.0); BLOOD UREA NITROGEN 22 MG/DL (7-18); CHLORIDE 104 MEQ/L (98-107); GLOMERULAR FILTRATION RATE 45 ML/MIN (>89); POTASSIUM 4.2 MEQ/L (3.5-5.1); SODIUM (NA) 139 MEQ/L (136-145)
[2017-03-08 15:58] LABS: APTT (PATIENT) 24.4 SEC (24.3-30.1); PROTHROMBIN TIME - PATIENT 11.3 SEC (9.8-11.6)
[2017-03-08 16:03] LABS: ALCOHOL LESS THAN 3 MG/DL (0-5)
[2017-03-08] MEDS ORDERED: ASPIRIN 325 MG TAB PO ONE (16:30)
[2017-03-08] MEDS ORDERED: RIVAROXABAN 15 MG TAB PO ONE (17:00)
[2017-03-08 17:14] LABS: BLOOD, URINE NEG (NEG); COMMENT (UR) CULT NOT INDICATED; CULTURE IF INDICATED CULT NOT INDICATED; GLUCOSE,URINE NEG (NEG); KETONE, URINE NEG (NEG); NITRITE,URINE NEG (NEG); URINE COLOR YELLOW (YELLW/STRAW)
[2017-03-08 17:53] VITALS: BP 94/55; PULSE 82; RESP 15; O2SAT 98
--- NOTE | 2017-03-08 18:28 | PD ---
Data Data Last Documented VS Vital Signs Date Time Temp Pulse Resp B/P (MAP) Pulse Ox O2 Delivery O2 Flow Rate FiO2 03/08/17 17:53 82 15 94/55 (68) 98 Room Air 03/08/17 14:44 98.8 Orders Orders Complete Blood Count With Diff (03/08/17 14:16) Basic Metabolic Panel (Bmp) (03/08/17 14:16) Urinalysis - C+S If Indicated (03/08/17 14:16) Psych Screen (03/08/17 14:16) Drug Screen, Random Urine (03/08/17 14:16) Alcohol (Ethanol) (03/08/17 14:16) Us Leg Venous Doppler (03/08/17 ) Blood Culture (03/08/17 14:56) Prothrombin Time / Inr (Pt) (03/08/17 14:56) Act Partial Throm Time (Ptt) (03/08/17 14:56) Chest, Single Ap (03/08/17 14:56) Ecg Monitoring (03/08/17 14:56) Iv Access Insert/Monitor (03/08/17 14:56) Oximetry (03/08/17 14:56) Sodium Chlor 0.9% 1000 Ml Inj (Ns 1000 M (03/08/17 15:00) Lorazepam Inj (Ativan Inj) (03/08/17 15:00) Cath For Specimen (03/08/17 14:58) Aspirin (Aspirin) (03/08/17 16:30) Stocking, [place] Knee Xlg Xlng Pr (03/08/17 16:27) Valproic Acid (Depakene) (03/08/17 16:29) Rivaroxaban (Xarelto) (03/08/17 17:00) Rivaroxaban (Xarelto) (03/09/17 09:00) Admit Order (Ed Use Only) (03/08/17 17:58) Consult Psychiatry (03/08/17 ) (Hub Use Only)Inp Phy Cons/Ref (03/08/17 ) Labs Laboratory Tests Test 03/08/17 14:50 03/08/17 16:20 White Blood Count 5.8 TH/MM3 Red Blood Count 4.03 MIL/MM3 Hemoglobin 11.1 GM/DL Hematocrit 34.7 % Mean Corpuscular Volume 86.1 FL Mean Corpuscular Hemoglobin 27.6 PG Mean Corpuscular Hemoglobin Concent 32.1 % Red Cell Distribution Width 13.8 % Platelet Count 298 TH/MM3 Mean Platelet Volume 9.0 FL Neutrophils (%) (Auto) 68.2 % Lymphocytes (%) (Auto) 15.2 % Monocytes (%) (Auto) 15.3 % Eosinophils (%) (Auto) 0.5 % Basophils (%) (Auto) 0.8 % Neutrophils # (Auto) 3.9 TH/MM3 Lymphocytes # (Auto) 0.9 TH/MM3 Monocytes # (Auto) 0.9 TH/MM3 Eosinophils # (Auto) 0.0 TH/MM3 Basophils # (Auto) 0.0 TH/MM3 CBC Comment DIFF FINAL Differential Comment Prothrombin Time 11.3 SEC Prothromb Time International Ratio 1.0 RATIO Activated Partial Thromboplast Time 24.4 SEC Blood Urea Nitrogen 22 MG/DL Creatinine 1.20 MG/DL Random Glucose 147 MG/DL Calcium Level 8.9 MG/DL Sodium Level 139 MEQ/L Potassium Level 4.2 MEQ/L Chloride Level 104 MEQ/L Carbon Dioxide Level 24.8 MEQ/L Anion Gap 10 MEQ/L Estimat Glomerular Filtration Rate 45 ML/MIN Ethyl Alcohol Level LESS THAN 3 MG/DL Urine Color YELLOW Urine Turbidity CLEAR Urine pH 7.0 Urine Specific [place] 1.022 Urine Protein TRACE mg/dL Urine Glucose (UA) NEG mg/dL Urine Ketones NEG mg/dL Urine Occult Blood NEG Urine Nitrite NEG Urine Bilirubin NEG Urine Urobilinogen LESS THAN 2.0 MG/DL Urine Leukocyte Esterase NEG Urine RBC 2 /hpf Urine WBC 1 /hpf Microscopic Urinalysis Comment CULT NOT INDICATED Urine Opiates Screen NEG Urine Barbiturates Screen NEG Urine Amphetamines Screen NEG Urine Benzodiazepines Screen NEG Urine Cocaine Screen NEG Urine Cannabinoids Screen NEG MDM Supervised Visit with NANETTE: Yes Narrative Course The history, exam, and medical decision-making in the associated midlevel provider note were completed with my assistance. I reviewed and agree with the findings presented. I attest that I had a [id number] encounter with the patient on the same day, and personally performed and documented my assessment and findings in the medical record. *My assessment and Findings: This is a 66-year-old female who presents to the emergency department here under a Nino act for decompensation of her bipolar disorder. She is quite disorganized on exam. She also incidentally has swelling of her lower extremity and has thrombus through her superficial femoral vein, popliteal and posterior tibial vein. She will be placed in observation medically, given Xarelto and disposition will be made by psychiatry. Diagnosis Primary Impression: Bipolar affective, manic, severe Additional Impression: DVT (deep venous thrombosis) Qualified Codes: I82.412 - Acute embolism and thrombosis of left femoral vein Condition: Stable Vidya Beth MD Mar 08, 2017 18:28
[2017-03-08] MEDS ORDERED: BISACODYL 10 MG SUPP RECTAL PRN (19:00)
[2017-03-08] MEDS ORDERED: ACETAMINOPHEN 325 MG TAB PO PRN (19:00)
[2017-03-08] MEDS ORDERED: SODIUM CHLORIDE 0.9% FLUSH 10 ML FLUSH IV FLUSH PRN (19:00)
[2017-03-08] MEDS ORDERED: SENNOSIDES 8.6 MG TAB PO PRN (19:00)
[2017-03-08] MEDS ORDERED: MAGNESIUM HYDROXIDE SUSP 30 ML CUP PO PRN (19:00)
[2017-03-08] MEDS ORDERED: NALOXONE HCL 0.4 MG/ML AMP IV PRN (19:00)
[2017-03-08] MEDS ORDERED: LACTULOSE SYRUP 20 GM/30 ML CUP PO PRN (19:00)
[2017-03-08 19:30] VITALS: BP 103/61; PULSE 80; RESP 16; TEMP 98; O2SAT 97
[2017-03-08] MEDS: DOCUSATE SODIUM 50 MG/SENNA 8.6 MG TAB PO SCH (20:54)
[2017-03-08] MEDS: SODIUM CHLORIDE 0.9% FLUSH 10 ML FLUSH IV FLUSH SCH (21:00)
[2017-03-08 21:07] VITALS: BP 77/48; PULSE 75; RESP 18; TEMP 98.1; O2SAT 96
[2017-03-08 22:10] VITALS: BP 116/59
[2017-03-08 23:53] VITALS: BP 113/55; PULSE 92; RESP 18; TEMP 98; O2SAT 98
[2017-03-09 02:12] VITALS: PULSE 91
[2017-03-09 04:29] VITALS: BP 112/56; PULSE 98; RESP 18; TEMP 98.2; O2SAT 97
[2017-03-09] MEDS ORDERED: PILL SPLITTER OTHER PRN (06:00)
--- NOTE | 2017-03-09 07:49 | HHI.HP ---
History of Present Illness Service Family medicine Primary Care Physician Abdoulaye Barclay, DO Admission Diagnosis Bipolar/Mala; Nino Act; LLE DVT Diagnoses: (1) Bipolar affective, manic, severe (2) DVT (deep venous thrombosis) (3) Non-insulin dependent type 2 diabetes mellitus (4) Sinus tachycardia (5) Hypertension History of Present Illness This is a 66 year old female with history of HTN, DVT in the past, diabetes, bipolar disorder presents to the ED for evaluation under a nino act. Pt is unable to concentration on our conversation; she is experiencing flights of ideas, and is a poor historian. She denies pain. Denies illicit drug use, and per the BA, pt has not been compliant with her medication. Patient reports that she has not been able to afford medication. She has been found to have LLE DVT has been on Xarelto in the past for DVT in 03/2015. Review of Systems Respiratory: DENIES: Cough, Wheezing, Sputum production, Shortness of breath Cardiovascular: DENIES: Chest pain, Palpitations, Syncope, Dyspnea on Exertion Gastrointestinal: DENIES: Abdominal pain, Constipation, Diarrhea Neurologic: COMPLAINS OF: Localized weakness, Poor Balance Psychiatric: COMPLAINS OF: Anxiety, Confusion, Mood changes, Hallucinations, Agitation, Delusions Past Family Social History Allergies: Coded Allergies: Sulfa (Sulfonamide Antibiotics) (Verified Allergy, Severe, Hives, 03/08/17) ibuprofen (Verified Allergy, Severe, HIVES, 03/08/17) penicillin G (Verified Allergy, Severe, HIVES, 03/08/17) Past Medical History Bipolar disorder Anxiety Depression DVT Diabetes HTN Active Ordered Medications Current Medications Medications (Trade) Dose Ordered Sig/Valentina Route Start Time Stop Time Status Last Admin (Xarelto) 15 mg BID PO 03/09/17 09:00 03/30/17 08:59 (NS Flush) 2 ml UNSCH PRN IV FLUSH 03/08/17 19:00 (NS Flush) 2 ml BID IV FLUSH 03/08/17 21:00 03/08/17 21:00 (Tylenol) 650 mg Q4H PRN PO 03/08/17 19:00 (Narcan Inj) 0.4 mg UNSCH PRN IV 03/08/17 19:00 (Brenda-Colace) 1 tab BID PO 03/08/17 21:00 (Milk Of Magnesia Liq) 30 ml Q12H PRN PO 03/08/17 19:00 (Senokot) 17.2 mg Q12H PRN PO 03/08/17 19:00 (Dulcolax Supp) 10 mg DAILY PRN RECTAL 03/08/17 19:00 (Lactulose Liq) 30 ml DAILY PRN PO 03/08/17 19:00 (Lopressor) 12.5 mg Q12HR PO 03/09/17 09:00 (Pill Splitter) 1 ea UNSCH PRN OTHER 03/09/17 06:00 (Depakote Er) 1,000 mg HS PO 03/09/17 21:00 (ZyPREXA) 20 mg HS PO 03/09/17 21:00 (Navane) 10 mg DAILY@08,16 PO 03/09/17 08:00 Social History Denies any smoking Minimal ETOH use Lives with daughter Disabled Physical Exam Vital Signs Vital Signs Date Time Temp Pulse Resp B/P (MAP) Pulse Ox O2 Delivery O2 Flow Rate FiO2 03/09/17 04:29 98.2 98 18 112/56 (74) 97 03/09/17 02:12 91 03/08/17 23:53 98.0 92 18 113/55 (74) 98 03/08/17 22:10 116/59 (78) 03/08/17 21:07 98.1 75 18 77/48 (58) 96 03/08/17 19:30 98.0 80 16 103/61 (75) 97 Room Air 03/08/17 19:00 77 20 96 Room Air 03/08/17 17:53 82 15 94/55 (68) 98 Room Air 03/08/17 14:50 115 18 100 Room Air 03/08/17 14:44 98.8 116 18 114/62 (79) 100 Physical Exam GENERAL: Well nourished female patient with bizarre affect; difficult to have a conversation with; labile moods SKIN: Warm and dry. Erythema of the distal RLE and LLE HEAD: Atraumatic. Normocephalic. EYES: Pupils equal and round. No scleral icterus. No injection or drainage. ENT: No nasal bleeding or discharge. Mucous membranes pink and moist. NECK: Trachea midline. No JVD. CARDIOVASCULAR: Tachycardic rate and rhythm. RESPIRATORY: No accessory muscle use. Clear to auscultation. Breath sounds equal bilaterally. GASTROINTESTINAL: Abdomen soft, non-tender, nondistended. Hepatic and splenic margins not palpable. MUSCULOSKELETAL: Extremities without clubbing, cyanosis. 2+ Edema of LLE with associated erythema; no pain to palpation. Distal pulses are palpable. Deformity of right foot NEUROLOGICAL: Awake and alert. No obvious cranial nerve deficits. Motor grossly within normal limits. Five out of 5 muscle strength in the arms and legs. Disorganized speech. Laboratory Laboratory Tests Test 03/08/17 14:50 03/08/17 16:20 White Blood Count 5.8 Red Blood Count 4.03 Hemoglobin 11.1 Hematocrit 34.7 Mean Corpuscular Volume 86.1 Mean Corpuscular Hemoglobin 27.6 Mean Corpuscular Hemoglobin Concent 32.1 Red Cell Distribution Width 13.8 Platelet Count 298 Mean Platelet Volume 9.0 Neutrophils (%) (Auto) 68.2 Lymphocytes (%) (Auto) 15.2 Monocytes (%) (Auto) 15.3 Eosinophils (%) (Auto) 0.5 Basophils (%) (Auto) 0.8 Neutrophils # (Auto) 3.9 Lymphocytes # (Auto) 0.9 Monocytes # (Auto) 0.9 Eosinophils # (Auto) 0.0 Basophils # (Auto) 0.0 CBC Comment DIFF FINAL Differential Comment Prothrombin Time 11.3 Prothromb Time International Ratio 1.0 Activated Partial Thromboplast Time 24.4 Blood Urea Nitrogen 22 Creatinine 1.20 Random Glucose 147 Calcium Level 8.9 Sodium Level 139 Potassium Level 4.2 Chloride Level 104 Carbon Dioxide Level 24.8 Anion Gap 10 Estimat Glomerular Filtration Rate 45 Valproic Acid (Depakene) Level 8 Ethyl Alcohol Level LESS THAN 3 Urine Color YELLOW Urine Turbidity CLEAR Urine pH 7.0 Urine Specific [place] 1.022 Urine Protein TRACE Urine Glucose (UA) NEG Urine Ketones NEG Urine Occult Blood NEG Urine Nitrite NEG Urine Bilirubin NEG Urine Urobilinogen LESS THAN 2.0 Urine Leukocyte Esterase NEG Urine RBC 2 Urine WBC 1 Microscopic Urinalysis Comment CULT NOT INDICATED Urine Opiates Screen NEG Urine Barbiturates Screen NEG Urine Amphetamines Screen NEG Urine Benzodiazepines Screen NEG Urine Cocaine Screen NEG Urine Cannabinoids Screen NEG Date/Time Source Procedure Growth Status 03/08/17 15:00 Blood Peripheral Aerobic Blood Culture Pending Received 03/08/17 15:00 Blood Peripheral Anaerobic Blood Culture Pending Received Result Diagram: 03/08/17 1450 03/08/17 1450 Imaging Last 72 hours Impressions Chest X-Ray 03/08/17 1456 Signed Impressions: Service Date/Time: Wednesday, March 08, 2017 15:10 - CONCLUSION: No acute disease. Jayme Aguilar MD FACR Lower Extremity Ultrasound 03/08/17 0000 Signed Impressions: Service Date/Time: Wednesday, March 08, 2017 15:12 - CONCLUSION: Acute occlusive thrombus involving the distal superficial femoral vein, popliteal vein, and posterior tibial vein. Jeremy Mosqueda Jr., MD Capchauncey VTE Risk Assessment Caprini VTE Risk Assessment: Mod/High Risk (score >= 2) Caprini Risk Assessment Model Point Value = 1 Point Value = 2 Point Value = 3 Point Value = 5 Age 41-60 Minor surgery BMI > 25 kg/m2 Swollen legs Varicose veins or History of unexplained or recurrent spontaneous Oral contraceptives or hormone replacement Sepsis (< 1 month) Serious lung disease, including pneumonia (< 1 month) Abnormal pulmonary function Acute myocardial infarction Congestive heart failure (< 1 month) History of inflammatory bowel disease Medical patient at bed rest Age 61-74 Arthroscopic surgery Major open surgery (> 45 min) Laparoscopic surgery (> 45 min) Malignancy Confined to bed (> 72 hours) Immobilizing plaster cast Central venous access Age >= 75 History of VTE Family history of VTE Factor V Leiden Prothrombin [id number] Lupus anticoagulant Anticardiolipin antibodies Elevated serum homocysteine Heparin-induced thrombocytopenia Other congenital or acquired thrombophilia Stroke (< 1 month) Elective arthroplasty Hip, pelvis, or leg fracture Acute spinal cord injury (< 1 month) Prophylaxis Regimen Total Risk Factor Score Risk Level Prophylaxis Regimen 0-1 Low Early ambulation 2 Moderate Order ONE of the following: *Sequential Compression Device (SCD) *Heparin 5000 units SQ BID 3-4 Higher Order ONE of the following medications: *Heparin 5000 units SQ TID *Enoxaparin/Lovenox 40 mg SQ daily (WT < 150 kg, CrCl > 30 mL/min) *Enoxaparin/Lovenox 30 mg SQ daily (WT < 150 kg, CrCl > 10-29 mL/min) *Enoxaparin/Lovenox 30 mg SQ BID (WT < 150 kg, CrCl > 30 mL/min) AND/OR *Sequential Compression Device (SCD) 5 or more Highest Order ONE of the following medications: *Heparin 5000 units SQ TID (Preferred with Epidurals) *Enoxaparin/Lovenox 40 mg SQ daily (WT < 150 kg, CrCl > 30 mL/min) *Enoxaparin/Lovenox 30 mg SQ daily (WT < 150 kg, CrCl > 10-29 mL/min) *Enoxaparin/Lovenox 30 mg SQ BID (WT < 150 kg, CrCl > 30 mL/min) AND *Sequential Compression Device (SCD) Assessment and Plan Problem List: (1) Bipolar affective, manic, severe ICD Codes: F31.13 - Bipolar disorder, current episode manic without psychotic features, severe Status: Acute (2) DVT (deep venous thrombosis) ICD Codes: I82.409 - Acute embolism and thrombosis of unspecified deep veins of unspecified lower extremity Status: Acute (3) Cellulitis of lower extremity ICD Codes: L03.119 - Cellulitis of unspecified part of limb (4) Non-insulin dependent type 2 diabetes mellitus ICD Codes: E11.9 - Non-insulin dependent type 2 diabetes mellitus Status: Chronic (5) Hypertension ICD Codes: I10 - Hypertension Status: Acute Assessment and Plan Bipolar disorder: Psych consulted. Patient is Nino acted. Home medication resumed. Recent discharge from psych facility on 03/01. Has been staying with daughter but non complaint with medication regimen secondary to cost. DVT: Left lower extremity DVT. According to records second DVT last one 03/24. Has been taking Xarelto but has been non complaint secondary to cost. Hematology consulted. Xarelto started. Diabetes: BS AC and HS. SS ordered. Will monitor Lower extremity cellulits: Bilateral lower extremity red and warm to touch will start doxycycline HTN: Metoprolol resumed. B/P 112/56. Amlodipine on hold On xarelto and GI prophylaxis started. Case management consulted. Labs work is pending this AM I and the INSPECTOR [employer] have both examined this patient and reviewed this note and I agree with these findings and plan of care. Abdoulaye Barclay DO Problem Qualifiers (1) DVT (deep venous thrombosis): Qualified Codes: I82.412 - Acute embolism and thrombosis of left femoral vein Odette Khoury [facility] Mar 09, 2017 07:49
[2017-03-09 08:01] VITALS: BP 118/69; PULSE 79; RESP 16; TEMP 97.8; O2SAT 96
[2017-03-09] MEDS ORDERED: GLUCAGON 1 MG/ML VIAL OTHER PRN (08:15)
[2017-03-09] MEDS ORDERED: DEXTROSE 50% IN WATER 50 ML VIAL(D50) IV PRN (08:15)
[2017-03-09 08:26] LABS: BASOPHIL % 0.7 % (0.0-2.0); EOSINOPHIL % 0.8 % (0.0-4.0); HEMATOCRIT 31.6 % (35.0-46.0); HEMO FLAGS DIFF FINAL; LYMPH % 14.7 % (9.0-44.0); LYMPHOCYTE # 0.7 TH/MM3 (1.0-4.8); MEAN CELL VOLUME 85.7 FL (80.0-100.0); MEAN CORPUSCULAR HEMOGLOBIN 28.4 PG (27.0-34.0); MEAN CORPUSCULAR HGB CONC 33.1 % (32.0-36.0); MONO % 19.1 % (0.0-8.0); NEUT % 64.7 % (16.0-70.0); PLATELET COUNT 256 TH/MM3 (150-450); RED BLOOD COUNT 3.69 MIL/MM3 (4.00-5.30); RED CELL DISTRIBUTION WIDTH 13.6 % (11.6-17.2); WHITE BLOOD COUNT 4.6 TH/MM3 (4.0-11.0)
[2017-03-09 08:49] LABS: ANION GAP 10 MEQ/L (5-15); AST (GOT) 26 U/L (15-37); BICARBONATE 23.2 MEQ/L (21.0-32.0); BLOOD UREA NITROGEN 17 MG/DL (7-18); CHLORIDE 104 MEQ/L (98-107); GLOMERULAR FILTRATION RATE 63 ML/MIN (>89); POTASSIUM 3.7 MEQ/L (3.5-5.1); SODIUM (NA) 137 MEQ/L (136-145)
[2017-03-09 08:50] LABS: ALT (GPT) 20 U/L (10-53)
[2017-03-09 08:53] LABS: ALKALINE PHOSPHATASE 66 U/L (45-117); TOTAL BILIRUBIN ADULT 0.3 MG/DL (0.2-1.0)
[2017-03-09] MEDS ORDERED: RIVAROXABAN 15 MG TAB PO SCH (09:00)
[2017-03-09] MEDS: INSULIN ASPART SUPPLEMENTAL SCALE SQ SCH ×3 (11:00→21:00)
[2017-03-09] MEDS: DOXYCYCLINE HYCLATE 100 MG CAP PO SCH ×2 (11:44→21:00)
[2017-03-09] MEDS: METOPROLOL TARTRATE 25 MG TAB PO SCH ×2 (11:45→21:00)
[2017-03-09] MEDS: DOCUSATE SODIUM 50 MG/SENNA 8.6 MG TAB PO SCH ×2 (11:45→21:00)
[2017-03-09] MEDS: THIOTHIXENE 10 MG CAP PO SCH ×2 (11:46→16:39)
[2017-03-09] MEDS: SODIUM CHLORIDE 0.9% FLUSH 10 ML FLUSH IV FLUSH SCH ×2 (11:47→21:00)
[2017-03-09] MEDS: FAMOTIDINE 20 MG TAB PO SCH ×2 (11:49→21:00)
[2017-03-09 12:03] VITALS: BP 118/69; PULSE 77; RESP 16; TEMP 98.6; O2SAT 96
--- NOTE | 2017-03-09 12:38 | PD.PSY.CON ---
Provisional Diagnosis Admission Date Mar 08, 2017 at 18:00 [place] I. Bipolar disorder type I, manic episode, with psychosis, r/o rapid cycling History of Present Illness Service Psychiatry Consult Requested By Reason for Consult Manic behavior Primary Care Physician DO MIRA Franks The patient is a 66 year-old woman, domicile with her daughter, with psychiatric history of bipolar disorder, multiple psychiatric hospitalizations, well known by this service discharged on March 01 from [place], she has history of ECT, noncompliant with medications, she was discharged on Depakote 1000 mg twice a day and olanzapine 20 mg at bedtime, with medical history of HTN , DVT in the past, diabetes, bipolar disorder presents to the ED for evaluation under a barber act. Pt is unable to concentration on our conversation; she is experiencing flights of ideas, and is a poor historian. Consulted to psychiatry due to manic behavior. On psychiatric evaluation today patient is found talking to herself, very loud inside the Cubicle, patient immediately say that he doesn't want to be with a psychiatrist "I need is a fitness management director and to do a confession". She says "if you go to give me the susanne breath you can stay, if not please leave my room". Patient says that the reason she is here it is because "my father wanted to transfer to technology of [employer]ictor[employer] to my Brain". As patient is talking, she is difficult to redirect and concentrate, her speech is very pressured, she laughed inappropriately multiple times, she says that she hasn't slept in 4 days, that she is full of energy, she describes her mood as "great, great". Patient says that she hasn't been taking her medications "I don 't need them and that'll have the money to buy them". 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 Patient denies suicidal and homicidal ideation, she denies visual and auditory hallucinations. Patient denies the use of alcohol and illicit drugs. Review of Systems Constitutional: DENIES: Diaphoretic episodes, Fatigue, Fever, Weight gain, Weight loss, Chills, Dizziness, Change in appetite, Night Sweats Endocrine: DENIES: Abnorml menstrual pattern, Heat/cold intolerance, Polydipsia , Polyuria, Polyphagia Eyes: DENIES: Blurred vision, Diplopia, Eye inflammation, Eye pain, Vision loss , Photosensitivity, Double Vision Ears, nose, mouth, throat: DENIES: Tinnitus, Hearing loss, Vertigo, Nasal discharge, Oral lesions, Throat pain, Hoarseness, Ear Pain, Running Nose, Epistaxis, Sinus Pain, Toothache, Odynophagia Respiratory: DENIES: Apneas, Cough, Snoring, Wheezing, Hemoptysis, Sputum production, Shortness of breath Cardiovascular: DENIES: Chest pain, Palpitations, Syncope, Dyspnea on Exertion , PND, Lower Extremity Edema, Orthopnea, Claudication Gastrointestinal: DENIES: Abdominal pain, Black stools, Bloody stools, Constipation, Diarrhea, Nausea, Vomiting, Difficulty Swallowing, Anorexia Musculoskeletal: DENIES: Joint pain, Muscle aches, Stiffness, Joint Swelling, Back pain, Neck pain Integumentary: DENIES: Abnormal pigmentation, Pruritus, Rash, Nail changes, Breast masses, Breast skin changes, Nipple discharge Hematologic/lymphatic: DENIES: Bruising, Lymphadenopathy Immunologic/allergic: DENIES: Eczema, Urticaria Neurologic: DENIES: Abnormal gait, Headache, Localized weakness, Paresthesias, Seizures, Speech Problems, Tremor, Poor Balance Psychiatric: COMPLAINS OF: Mood changes, Delusions, DENIES: Anxiety, Confusion , Depression, Hallucinations, Agitation, Suicidal Ideation, Homicidal Ideation Past Family Social History Coded Allergies: Sulfa (Sulfonamide Antibiotics) (Verified Allergy, Severe, Hives, 03/08/17) ibuprofen (Verified Allergy, Severe, HIVES, 03/08/17) penicillin G (Verified Allergy, Severe, HIVES, 03/08/17) Active Scripts Thiothixene (Thiothixene) 10 Mg Cap, 10 MG PO BID@08,16 for health, #60 CAP 0 Refills Prov:Tim Ca MD 03/01/17 Potassium Chloride Microencaps (Potassium Chloride Microencaps) 20 Meq Tab, 20 MEQ PO DAILY for health, #30 TAB 0 Refills Prov:Tim Ca MD 03/01/17 Olanzapine (Olanzapine) 15 Mg Tab, 15 MG PO BID for health, #60 TAB 0 Refills Prov:Tim Ca MD 03/01/17 Metoprolol Tartrate (Metoprolol Tartrate) 25 Mg Tab, 12.5 MG PO 1/2 po q 12 h for health, #30 TAB 0 Refills Prov:Tim Ca MD 03/01/17 Divalproex ER (Depakote ER) 500 Mg Diana, 1000 MG PO 2 po hshealth for health, #60 TAB 0 Refills Prov:Tim Ca MD 03/01/17 Amlodipine (Norvasc) 5 Mg Tab, 5 MG PO DAILY for health, #30 TAB 0 Refills Prov:Tim Ca MD 03/01/17 Thiothixene (Thiothixene) 10 Mg Cap, 10 MG PO DAILY@08,16 for Agitation, #60 CAP Prov:Abdoulaye Barclay DO 11/06/16 Divalproex ER (Depakote ER) 500 Mg Diana, 1000 MG PO HS for Anxiety and/or Insomnia, #28 TAB Prov:Abdoulaye Barclay DO 11/06/16 Amlodipine (Norvasc) 5 Mg Tab, 5 MG PO DAILY for Blood Pressure Management for 28 Days, BOTTLE 0 Refills Prov:Abdoulaye Barclay DO 11/06/16 Thiothixene (Thiothixene) 10 Mg Cap, 10 MG PO DAILY@08,16 for Mental Health for 0 Days, CAP 0 Refills Prov:Osiel Davis MD 11/01/16 Olanzapine Odt (Zyprexa Zydis) 20 Mg Tab, 20 MG PO HS for Mental Health for 0 Days, TAB 0 Refills Prov:Osiel Davis MD 11/01/16 Metoprolol Tartrate (Metoprolol Tartrate) 25 Mg Tab, 12.5 MG PO Q12HR for Blood Pressure Management for 0 Days, TAB 0 Refills Prov:Osiel Davis MD 11/01/16 Divalproex ER (Depakote ER) 500 Mg Diana, 1000 MG PO HS for Mental Health for 0 Days, TAB 0 Refills Prov:Osiel Davis MD 11/01/16 Reported Medications Nitrofurantoin Monohydrate Macrocrystals (Macrobid) 100 Mg Cap, 100 MG PO BID for Infection, #15 CAP 0 Refills 11/06/16 Olanzapine (Zyprexa) 20 Mg Tab, 20 MG PO HS, #30 TAB 0 Refills 4/30/17 Current Medications Medications (Trade) Dose Ordered Sig/Valentina Route Start Time Stop Time Status Last Admin (Xarelto) 15 mg BID PO 03/09/17 09:00 03/30/17 08:59 03/09/17 11:45 (NS Flush) 2 ml UNSCH PRN IV FLUSH 03/08/17 19:00 (NS Flush) 2 ml BID IV FLUSH 03/08/17 21:00 03/09/17 11:47 (Tylenol) 650 mg Q4H PRN PO 03/08/17 19:00 (Narcan Inj) 0.4 mg UNSCH PRN IV 03/08/17 19:00 (Brenda-Colace) 1 tab BID PO 03/08/17 21:00 03/09/17 11:45 (Milk Of Magnesia Liq) 30 ml Q12H PRN PO 03/08/17 19:00 (Senokot) 17.2 mg Q12H PRN PO 03/08/17 19:00 (Dulcolax Supp) 10 mg DAILY PRN RECTAL 03/08/17 19:00 (Lactulose Liq) 30 ml DAILY PRN PO 03/08/17 19:00 (Lopressor) 12.5 mg Q12HR PO 03/09/17 09:00 03/09/17 11:45 (Pill Splitter) 1 ea UNSCH PRN OTHER 03/09/17 06:00 (Depakote Er) 1,000 mg HS PO 03/09/17 21:00 (ZyPREXA) 20 mg HS PO 03/09/17 21:00 (Navane) 10 mg DAILY@08,16 PO 03/09/17 08:00 03/09/17 11:46 (Vibramycin) 100 mg BID PO 03/09/17 09:00 03/17/17 09:00 03/09/17 11:44 (D50w (Vial) Inj) 50 ml UNSCH PRN IV 03/09/17 08:15 (Glucagon Inj) 1 mg UNSCH PRN OTHER 03/09/17 08:15 (NovoLOG SUPPLEMENTAL SCALE) 1 ACHS SLIDING SCALE SQ 03/09/17 11:00 (Pepcid) 20 mg BID PO 03/09/17 09:00 03/09/17 11:49 Social History [place], she lives in [place] with her daughter, unemployed, , highest level of education is high school Patient's Strengths (min. 2) Verbal communication Physical Exam Patient is hyperactive, with marked psychomotor agitation, but no tremors, no EPS, no gait disturbance Vital Signs Vital Signs Date Time Temp Pulse Resp B/P (MAP) Pulse Ox O2 Delivery O2 Flow Rate FiO2 03/09/17 12:03 98.6 77 16 118/69 (85) 96 03/08/17 19:30 Room Air Lab Results Test 03/08/17 14:50 03/08/17 16:20 03/09/17 06:47 White Blood Count 5.8 TH/MM3 4.6 TH/MM3 Red Blood Count 4.03 MIL/MM3 3.69 MIL/MM3 Hemoglobin 11.1 GM/DL 10.5 GM/DL Hematocrit 34.7 % 31.6 % Mean Corpuscular Volume 86.1 FL 85.7 FL Mean Corpuscular Hemoglobin 27.6 PG 28.4 PG Mean Corpuscular Hemoglobin Concent 32.1 % 33.1 % Red Cell Distribution Width 13.8 % 13.6 % Platelet Count 298 TH/MM3 256 TH/MM3 Mean Platelet Volume 9.0 FL 9.5 FL Neutrophils (%) (Auto) 68.2 % 64.7 % Lymphocytes (%) (Auto) 15.2 % 14.7 % Monocytes (%) (Auto) 15.3 % 19.1 % Eosinophils (%) (Auto) 0.5 % 0.8 % Basophils (%) (Auto) 0.8 % 0.7 % Neutrophils # (Auto) 3.9 TH/MM3 3.0 TH/MM3 Lymphocytes # (Auto) 0.9 TH/MM3 0.7 TH/MM3 Monocytes # (Auto) 0.9 TH/MM3 0.9 TH/MM3 Eosinophils # (Auto) 0.0 TH/MM3 0.0 TH/MM3 Basophils # (Auto) 0.0 TH/MM3 0.0 TH/MM3 CBC Comment DIFF FINAL DIFF FINAL Differential Comment Prothrombin Time 11.3 SEC Prothromb Time International Ratio 1.0 RATIO Activated Partial Thromboplast Time 24.4 SEC Blood Urea Nitrogen 22 MG/DL 17 MG/DL Creatinine 1.20 MG/DL 0.89 MG/DL Random Glucose 147 MG/DL 166 MG/DL Calcium Level 8.9 MG/DL 8.6 MG/DL Sodium Level 139 MEQ/L 137 MEQ/L Potassium Level 4.2 MEQ/L 3.7 MEQ/L Chloride Level 104 MEQ/L 104 MEQ/L Carbon Dioxide Level 24.8 MEQ/L 23.2 MEQ/L Anion Gap 10 MEQ/L 10 MEQ/L Estimat Glomerular Filtration Rate 45 ML/MIN 63 ML/MIN Valproic Acid (Depakene) Level 8 MCG/ML Ethyl Alcohol Level LESS THAN 3 MG/DL Urine Color YELLOW Urine Turbidity CLEAR Urine pH 7.0 Urine Specific [place] 1.022 Urine Protein TRACE mg/dL Urine Glucose (UA) NEG mg/dL Urine Ketones NEG mg/dL Urine Occult Blood NEG Urine Nitrite NEG Urine Bilirubin NEG Urine Urobilinogen LESS THAN 2.0 MG/DL Urine Leukocyte Esterase NEG Urine RBC 2 /hpf Urine WBC 1 /hpf Microscopic Urinalysis Comment CULT NOT INDICATED Urine Opiates Screen NEG Urine Barbiturates Screen NEG Urine Amphetamines Screen NEG Urine Benzodiazepines Screen NEG Urine Cocaine Screen NEG Urine Cannabinoids Screen NEG Total Protein 6.5 GM/DL Albumin 2.6 GM/DL Alkaline Phosphatase 66 U/L Aspartate Amino Transf (AST/SGOT) 26 U/L Alanine Aminotransferase (ALT/SGPT) 20 U/L Total Bilirubin 0.3 MG/DL Date/Time Source Procedure Growth Status 03/08/17 15:00 Blood Peripheral Aerobic Blood Culture - Preliminary NO GROWTH IN 1 DAY Resulted 03/08/17 15:00 Blood Peripheral Anaerobic Blood Culture - Preliminary NO GROWTH IN 1 DAY Resulted Mental Status Examination Appearance overweight woman, poorly cooperative, very hyperactive Speech: Pressured Orientation: x3 Memory: Unremarkable Thought Process: Loose Association, Tangential Thought Content: Bizarre thinking, Paranoid Language Difficult to assess due to the level of mena Fund of Knowledge Seems to be adequate for her level of education Hallucination Type: None Attention and Concentration: Abnormal Suicidal Ideation: No Previous Suicide Attempts: No Homicidal Ideation: No Previous Homicide Attempts: No Insight: Poor Affect: Irritable, Other (elevated) Mood: Irritable, Manic Motor Activity: Normal gait Assessment & Plan Problem List: (1) Bipolar affective, manic, severe ICD Codes: F31.13 - Bipolar disorder, current episode manic without psychotic features, severe Status: Acute Assessment & Plan: Patient presents acute symptomatology of mena including pressured speech, disorganized behavior and speech, loosening of associations, tangentiality, decrease level of concentration, hyperreligiosity, paranoia and grandiose delusions in the context of noncompliance with her medications. Depakote level are suboptimal. Patient has over 3 hospitalizations in 2017 due to manic behavior which might suggest that the patient is a rapid cycler. Patient has an elevated risk of danger to self and needs psychiatric admission for stabilization and safety. We'll restart Depakote 1000 mg twice a day and olanzapine 20 mg at bedtime. Transfer to med psych. Assessment & Plan Estimated LOS: days Anatoliy Garrett MD Mar 09, 2017 12:38
[2017-03-09 14:56] VITALS: BP 118/71; PULSE 83; RESP 16; TEMP 97.8; O2SAT 97
[2017-03-09 20:08] VITALS: BP 128/78; PULSE 85; RESP 17; TEMP 98.3; O2SAT 94
--- NOTE | 2017-03-09 20:28 | MB ---
cc: EDIL NASH MD DEVERAS, RUBY ANNE E. M.D. DATE OF CONSULTATION 03/09/[address] Edil Loza CHIEF COMPLAINT Dr. Nash requests a consultation for Ms. Hurley regarding recurrent left lower extremity deep vein thromboses. HISTORY OF PRESENT ILLNESS Ms. Hurley is a 66-year-old woman, well-known patient to psychiatry. She has a history of bipolar disorder type 1, manic episode with psychosis. She presents to the emergency room with altered mental status. She was evaluated in the emergency room and was under [place] Act. She was unable to concentrate on our conversation, had flight of ideas and is a poor historian. Dr. Sarmiento complemented the history with history of ECT noncompliance with medication. She has had prior history of hypertension and DVT in the past. Mrs. Hurley is unable to tell me where she has had a venous thromboembolic event. Review of the electronic medical record from April 08, 2015 shows positive occlusive deep vein thromboses of the left peroneal and posterior tibial veins. The rest of the veins were normal. Subsequent Doppler ultrasound from 04/08/2016 of the left leg was normal. Another ultrasound from October 05 bilateral lower extremities shows no evidence of deep vein thromboses, but there is a small right popliteal cyst. Most recent ultrasound from 03/08/2017 shows an acute occlusive thrombus involving the distal superficial femoral vein, popliteal vein and posterior tibial veins. She has overt swelling and chronic venous changes on the left leg. There is hairless shiny skin from postphlebitic syndrome. There is a patch of erythema. Hematology/Oncology is consulted for this. Ms. Hurley declined anticoagulant therapy with Xarelto. She claims that the cost is $300 a tablet. She was agreeable to bridge of low-molecular weight heparin to a therapeutic INR. She is familiar with Coumadin. She was agreeable to that. She was able to answer questions at times, but she is very tangential and would yell purposelessly in her room. She wants to take a walk. Denies any bleeding. Denies any family history of thrombotic events. PAST MEDICAL HISTORY 1. Bipolar disorder/mena 2. Recurrent left lower extremity deep vein thromboses 3. Type 2 diabetes 4. Hypertension 5. Anxiety 6. Anemia. PAST SURGICAL HISTORY None SOCIAL HISTORY Denies any tobacco, minimal alcohol use. She is disabled, lives with her daughter. FAMILY HISTORY Father of lung issues at an older age and denies any family history of venous thromboembolic events. PHYSICAL EXAMINATION VITAL SIGNS: Temperature 98.6, heart rate 77, respiratory rate 16, blood pressure 118/69, saturation 96%. GENERAL: Ms. Hurley is a well organized woman who looks her stated age. She has unkempt hair falling over her eyes. HEENT: Her pupils are round, reactive to light and accommodation. Oropharynx is clear. NECK: Supple. LUNGS: Clear. CARDIOVASCULAR: Normal rate, rhythm. ABDOMEN: Benign. LOWER EXTREMITIES: Asymmetry left leg more prominent than the right. There is trace edema hairless shiny skin and erythema. LABORATORY DATA Significant for glucose 166, albumin is decreased at 2.6, hemoglobin 10.5. PT/PTT are normal. ASSESSMENT/PLAN Ms. Hurley is a 66-year-old woman with a long psychiatric history. She does not appear to be compensated at present. She is admitted with acute mental status change that probably is decompensation of her psychiatric illness. Hematology/Oncology is consulted for recurrent left lower extremity deep vein thromboses. Apparently, she has developed left lower extremity deep vein thromboses in the past in March 2015. She has recurrent clot after two ultrasounds in between that shows resolution of deep vein thrombosis. It is hard to tell from history any precipitating event. Recommend anticoagulant therapy. It is likely she will require chronic anticoagulant therapy as secondary prophylaxis in light of her recurrent clot in the same leg. Furthermore, she has chronic postphlebitic syndrome. She seems to know that Xarelto is quite expensive, does not want to take it. We discussed alternative treatments. It is quite reasonable to use the low-molecular weight heparin and Coumadin. This would ultimately need to be discussed with her daughter who she lives with. There is truth in cost of Xarelto. However, it might improve her compliance to take a new oral anticoagulant since there is no absolute contraindication. However, I will take into consideration patient's preference, especially it would not be a helpful drug if they cannot afford it ultimately. Her questions were answered to her satisfaction. We will need to coordinate a way to manage her PT/INR on an outpatient basis. MD JESSENIA Moreira/ /2:34 PM /8:05 PM
[2017-03-09] MEDS: OLANZapine 10 MG TAB PO SCH (21:00)
[2017-03-09] MEDS: DIVALPROEX SODIUM E.R. 500 MG TAB PO SCH (21:00)
[2017-03-09] MEDS ORDERED: WARFARIN SOD 5 MG TAB PO SCH (21:00)
[2017-03-09] MEDS: ENOXAPARIN SODIUM 60 MG/0.6 ML SYRINGE SQ SCH (22:00)
[2017-03-10 00:14] VITALS: PULSE 105
[2017-03-10 04:54] VITALS: BP 125/66; PULSE 108; RESP 18; TEMP 97.5; O2SAT 98
[2017-03-10] MEDS: INSULIN ASPART SUPPLEMENTAL SCALE SQ SCH (06:19)
--- NOTE | 2017-03-10 06:42 | HHI.PR ---
Subjective Remarks Patient is restless. Denies any SOB or CP. Refused most medication last night including Lovenox an warfarin. Objective Vital Signs Date Time Temp Pulse Resp B/P (MAP) Pulse Ox O2 Delivery O2 Flow Rate FiO2 03/10/17 04:54 97.5 108 18 125/66 (85) 98 03/10/17 00:14 105 03/09/17 20:08 98.3 85 17 128/78 (95) 94 03/09/17 14:56 97.8 83 16 118/71 (87) 97 03/09/17 12:03 98.6 77 16 118/69 (85) 96 03/09/17 08:01 97.8 79 16 118/69 (85) 96 Result Diagram: 03/09/17 0647 03/09/17 0647 Imaging Last 72 hours Impressions Chest X-Ray 03/08/17 1456 Signed Impressions: Service Date/Time: Wednesday, March 08, 2017 15:10 - CONCLUSION: No acute disease. Jayme Aguilar MD FACR Lower Extremity Ultrasound 03/08/17 0000 Signed Impressions: Service Date/Time: Wednesday, March 08, 2017 15:12 - CONCLUSION: Acute occlusive thrombus involving the distal superficial femoral vein, popliteal vein, and posterior tibial vein. Jeremy Mosqueda Jr., MD Objective Remarks GENERAL: Alert not oriented. Pressured speech and not oriented SKIN: Warm and dry. HEAD: Normocephalic. EYES: No scleral icterus. No injection or drainage. NECK: Supple, trachea midline. No JVD or lymphadenopathy. CARDIOVASCULAR: Regular rate and rhythm without murmurs, gallops, or rubs. RESPIRATORY: Breath sounds equal bilaterally. No accessory muscle use. GASTROINTESTINAL: Abdomen soft, non-tender, nondistended. MUSCULOSKELETAL: No cyanosis, or edema. BACK: Nontender without obvious deformity. No CVA tenderness. Medications and IVs Current Medications Medications (Trade) Dose Ordered Sig/Valentina Route Start Time Stop Time Status Last Admin (NS Flush) 2 ml UNSCH PRN IV FLUSH 03/08/17 19:00 (NS Flush) 2 ml BID IV FLUSH 03/08/17 21:00 03/09/17 11:47 (Tylenol) 650 mg Q4H PRN PO 03/08/17 19:00 (Narcan Inj) 0.4 mg UNSCH PRN IV 03/08/17 19:00 (Brenda-Colace) 1 tab BID PO 03/08/17 21:00 03/09/17 11:45 (Milk Of Magnesia Liq) 30 ml Q12H PRN PO 03/08/17 19:00 (Senokot) 17.2 mg Q12H PRN PO 03/08/17 19:00 (Dulcolax Supp) 10 mg DAILY PRN RECTAL 03/08/17 19:00 (Lactulose Liq) 30 ml DAILY PRN PO 03/08/17 19:00 (Lopressor) 12.5 mg Q12HR PO 03/09/17 09:00 03/09/17 11:45 (Pill Splitter) 1 ea UNSCH PRN OTHER 03/09/17 06:00 (Depakote Er) 1,000 mg HS PO 03/09/17 21:00 03/09/17 21:00 (ZyPREXA) 20 mg HS PO 03/09/17 21:00 03/09/17 21:00 (Navane) 10 mg DAILY@08,16 PO 03/09/17 08:00 03/09/17 16:39 (Vibramycin) 100 mg BID PO 03/09/17 09:00 03/17/17 09:00 03/09/17 11:44 (D50w (Vial) Inj) 50 ml UNSCH PRN IV 03/09/17 08:15 (Glucagon Inj) 1 mg UNSCH PRN OTHER 03/09/17 08:15 (NovoLOG SUPPLEMENTAL SCALE) 1 ACHS SLIDING SCALE SQ 03/09/17 11:00 03/10/17 06:19 (Pepcid) 20 mg BID PO 03/09/17 09:00 03/09/17 11:49 (Coumadin) 5 mg DAILY@1600 PO 03/09/17 21:00 (Lovenox Inj) 60 mg Q12H SQ 03/09/17 22:00 Assessment and Plan Problem List: (1) Bipolar affective, manic, severe ICD Codes: F31.13 - Bipolar disorder, current episode manic without psychotic features, severe Status: Acute (2) DVT (deep venous thrombosis) ICD Codes: I82.409 - Acute embolism and thrombosis of unspecified deep veins of unspecified lower extremity Status: Acute (3) Cellulitis of lower extremity ICD Codes: L03.119 - Cellulitis of unspecified part of limb (4) Non-insulin dependent type 2 diabetes mellitus ICD Codes: E11.9 - Non-insulin dependent type 2 diabetes mellitus Status: Chronic (5) Hypertension ICD Codes: I10 - Hypertension Status: Acute Assessment and Plan 03/09/17 Bipolar disorder: Psych consulted. Patient is Mica junior. Home medication resumed. Recent discharge from psych facility on 03/01. Has been staying with daughter but non complaint with medication regimen secondary to cost. DVT: Left lower extremity DVT. According to records second DVT last one 03/24. Has been taking Xarelto but has been non complaint secondary to cost. Hematology consulted. Xarelto started. Diabetes: BS AC and HS. SS ordered. Will monitor Lower extremity cellulitis: Bilateral lower extremity red and warm to touch will start doxycycline HTN: Metoprolol resumed. B/P 112/56. Amlodipine on hold On Xarelto and GI prophylaxis started. Case management consulted. Labs work is pending this AM 03/10/17 Bipolar disorder: Psych consulted. Patient is Mica junior. Home medication resumed. Recent discharge from psych facility on 03/01. Has been staying with daughter but non complaint with medication regimen secondary to cost. However she refused most medications yesterday except Psych meds. Patient speech is pressured and she is hyperactive. DVT: Left lower extremity DVT. According to records second DVT last one 03/24. Has been taking Xarelto but has been non complaint secondary to cost. Hematology consulted. Xarelto started and switched to Lovenox and warfarin that she refused this AM. Discussed at length with patient and for the meantime has agreed to take. INR in AM Diabetes: BS AC and HS. SS ordered. Will monitor Lower extremity cellulitis: Bilateral lower extremity red and warm on doxycycline HTN: Metoprolol resumed which she refused. B/P 125/66. Amlodipine on hold. Will change metoprolol to XL to help with compliance. On Lovenox and warfarin and GI prophylaxis started. I and the BOILER REPAIR SUPERVISOR have both examined this patient and reviewed this note and I agree with these findings and plan of care. Abdoulaye Barclay DO Problem Qualifiers (1) DVT (deep venous thrombosis): Qualified Codes: I82.412 - Acute embolism and thrombosis of left femoral vein Odette Khoury [facility] Mar 10, 2017 06:42
[2017-03-10 07:42] VITALS: BP 121/75; PULSE 80; RESP 16; TEMP 98.6; O2SAT 98
[2017-03-10] MEDS: THIOTHIXENE 10 MG CAP PO SCH (08:00)
[2017-03-10] MEDS: DOCUSATE SODIUM 50 MG/SENNA 8.6 MG TAB PO SCH (08:11)
[2017-03-10] MEDS: DOXYCYCLINE HYCLATE 100 MG CAP PO SCH (08:11)
[2017-03-10] MEDS: SODIUM CHLORIDE 0.9% FLUSH 10 ML FLUSH IV FLUSH SCH (08:11)
[2017-03-10] MEDS: FAMOTIDINE 20 MG TAB PO SCH (08:11)
[2017-03-10] MEDS ORDERED: METOPROLOL SUCCINATE 25 MG EXTENDED RELEASE TAB PO SCH (09:00)
[2017-03-10] MEDS: ENOXAPARIN SODIUM 60 MG/0.6 ML SYRINGE SQ SCH (10:00)
--- NOTE | 2017-03-10 11:54 | HHI.PYPN ---
Subjective Remarks Patient was seen today for psychiatric reevaluation, patient is awake, talking to herself, continues to be very disorganized, with pressured and tangential speech, religiously preoccupied. Patient says that she hasn't been taking her psychiatric medications in the last weeks because "my psychiatrist Dr. Colón told me that I do need any more medications, and he blessed me, he is my electrical prospecting engineer ". As per nurse in charge and one to one observer, patient has been increasingly disorganized, very talkative, with increased energy, grandiosity of delusions at times very difficult to redirect. Patient is fully oriented 3 , has been compliant with medications in the ER, no significant side effects reported at this moment. Review of Systems Other No somatic complaints Objective Alert: Yes [place]: Person, Place, Date Mood: Angry, Other (manic) Affect: Labile, Manic Memory Intact: Immediate, Recent Hallucinations: Other (she denies) Delusions: Yes Delusion Type: Grandiose, Paranoid Suicidal: Ideation (no SI) Homicidal: Ideation (no HI) Insight/Judgment Very poor Labs Date/Time Source Procedure Growth Status 03/08/17 15:00 Blood Peripheral Aerobic Blood Culture - Preliminary NO GROWTH IN 2 DAYS Resulted 03/08/17 15:00 Blood Peripheral Anaerobic Blood Culture - Preliminary NO GROWTH IN 2 DAYS Resulted Vitals/IOs Vital Signs Date Time Temp Pulse Resp B/P (MAP) Pulse Ox O2 Delivery O2 Flow Rate FiO2 03/10/17 07:42 98.6 80 16 121/75 (90) 98 03/08/17 19:30 Room Air Assessment & Plan Problem List: (1) Bipolar affective, manic, severe ICD Codes: F31.13 - Bipolar disorder, current episode manic without psychotic features, severe Status: Acute Assessment & Plan: Patient continues to display manic behavior and delusional thinking. Continue Depakote 1000 mg twice a day, olanzapine 20 mg at bedtime. We will add 10 mg of olanzapine IM every 8 hours when necessary agitation and hostility. Patient will be transferred to the med psych floor this morning. Case discussed with primary ER team. Assessment & Plan Estimated LOS: days Justification for Cont. Inpt. Patient is acutely manic/psychotic and needs psychiatric hospitalization for stabilization. Anatoliy Garrett MD Mar 10, 2017 11:54
--- NOTE | 2017-03-10 14:23 | HHI.DS ---
Discharge Summary Admission Date Mar 08, 2017 at 18:00 Discharge Date: Mar 10, 2017 Admitting Diagnosis Bipolar/[place]ala; Nino Act; LLE DVT (1) DVT (deep venous thrombosis) ICD Codes: I82.409 - Acute embolism and thrombosis of unspecified deep veins of unspecified lower extremity Status: Acute Brief History This is a 66 year old female with history of HTN, DVT in the past, diabetes, bipolar disorder presents to the ED for evaluation under a nino act. Pt is unable to concentration on our conversation; she is experiencing flights of ideas, and is a poor historian. She denies pain. Denies illicit drug use, and per the BA, pt has not been compliant with her medication. Patient reports that she has not been able to afford medication. She has been found to have LLE DVT has been on Xarelto in the past for DVT in 03/2015. CBC/BMP: 03/09/17 0647 03/09/17 0647 Significant Findings Laboratory Tests Test 03/08/17 14:50 03/08/17 16:20 03/09/17 06:47 Hemoglobin 11.1 GM/DL (11.6-15.3) 10.5 GM/DL (11.6-15.3) Hematocrit 34.7 % (35.0-46.0) 31.6 % (35.0-46.0) Monocytes (%) (Auto) 15.3 % (0.0-8.0) 19.1 % (0.0-8.0) Lymphocytes # (Auto) 0.9 TH/MM3 (1.0-4.8) 0.7 TH/MM3 (1.0-4.8) Blood Urea Nitrogen 22 MG/DL (7-18) Creatinine 1.20 MG/DL (0.50-1.00) Random Glucose 147 MG/DL (74-106) 166 MG/DL (74-106) Estimat Glomerular Filtration Rate 45 ML/MIN (>89) 63 ML/MIN (>89) Valproic Acid (Depakene) Level 8 MCG/ML (50-100) Red Blood Count 3.69 MIL/MM3 (4.00-5.30) Albumin 2.6 GM/DL (3.4-5.0) Imaging Last 72 hours Impressions Chest X-Ray 03/08/17 5821 Signed Impressions: Service Date/Time: Wednesday, March 08, 2017 15:10 - CONCLUSION: No acute disease. Jayme Aguilar MD FACR Lower Extremity Ultrasound 03/08/17 0000 Signed Impressions: Service Date/Time: Wednesday, March 08, 2017 15:12 - CONCLUSION: Acute occlusive thrombus involving the distal superficial femoral vein, popliteal vein, and posterior tibial vein. Jeremy Mosqueda Jr., MD PE at Discharge GENERAL: Alert not oriented. Pressured speech and not oriented SKIN: Warm and dry. HEAD: Normocephalic. EYES: No scleral icterus. No injection or drainage. NECK: Supple, trachea midline. No JVD or lymphadenopathy. CARDIOVASCULAR: Regular rate and rhythm without murmurs, gallops, or rubs. RESPIRATORY: Breath sounds equal bilaterally. No accessory muscle use. GASTROINTESTINAL: Abdomen soft, non-tender, nondistended. MUSCULOSKELETAL: No cyanosis, or edema. BACK: Nontender without obvious deformity. No CVA tenderness. Hospital Course This is a 66 year old female with history of HTN, DVT in the past, diabetes, bipolar disorder presents to the ED for evaluation under a nino act. Pt is unable to concentration on our conversation; she is experiencing flights of ideas, and is a poor historian. She denies pain. Denies illicit drug use, and per the BA, pt has not been compliant with her medication. Patient reports that she has not been able to afford medication. She has been found to have LLE DVT has been on Xarelto in the past for DVT in 03/2015. Was also seen by hematology and she was placed on Lovenox and warfarin. She refused dosing last night of warfarin and Lovenox among other medications. She was also placed on Keflex for lower extremity cellulitis during her stay. She is a nino act currently and transferred to medical psych. Pt Condition on Discharge: Stable Discharge Disposition: Disc to Psych Care Fac Discharge Instructions DIET: Follow Instructions for: Diabetic Diet Activities you can perform: Weight Bearing as Odette Sanchez Mar 10, 2017 14:23
== END 2017-03-10 11:53 ==
LOC: NEPC 14:02 → NEDA 18:00 → NEPHCDU 20:27
PROVIDERS: ADMIT Family Medicine; ATTEND Family Medicine
DX: I82.412 Acute embolism and thrombosis of left femoral vein (principal); I82.432 Acute embolism and thrombosis of left popliteal vein; L03.119 Cellulitis of unspecified part of limb; F31.10 Bipolar disorder, current episode manic without psychotic features, unspecified; E11.9 Type 2 diabetes mellitus without complications; I10 Essential (primary) hypertension; R06.02 Shortness of breath; D64.9 Anemia, unspecified; Z91.14 Patient's other noncompliance with medication regimen
CPT/HCPCS: 71010; 80048; 80053; 80164; 80307; 81001; 82948; 85025; 85610; 85730; 87040; 93971; 96361; 96372; 96374; 99285; G0378; J1815; J2060; J7030; P9612

== ENCOUNTER 2017-03-10 12:00 | Inpatient (IN) | payer MEDICARE ==
[2017-03-10] MEDS ORDERED: LORazepam 2 MG/ML VIAL IM PRN (12:15)
[2017-03-10] MEDS ORDERED: ALUMINUM/MAGNESIUM/SIMETH 30 ML CUP PO PRN (12:15)
[2017-03-10] MEDS ORDERED: diphenhydrAMINE HCL 50 MG/ML VIAL IM PRN (12:15)
[2017-03-10] MEDS ORDERED: LORazepam 0.5 MG TAB PO PRN (12:15)
[2017-03-10] MEDS ORDERED: GLUCAGON 1 MG/ML VIAL OTHER PRN (12:15)
[2017-03-10] MEDS ORDERED: MAGNESIUM HYDROXIDE SUSP 30 ML CUP PO PRN (12:15)
[2017-03-10] MEDS ORDERED: ACETAMINOPHEN 325 MG TAB PO PRN (12:15)
[2017-03-10] MEDS ORDERED: DEXTROSE 50% IN WATER 50 ML VIAL(D50) IV PRN (12:15)
[2017-03-10] MEDS ORDERED: diphenhydrAMINE HCL 25 MG CAP PO PRN (13:00)
[2017-03-10] MEDS: NITROFURANTOIN MONOHYD MACROCR 100 MG CAP PO SCH ×2 (13:12→21:00)
--- NOTE | 2017-03-10 14:05 | PD.ONC.PN ---
Subjective Subjective Remarks Patient moved to med/psych today. She has been refusing all injections, including her Lovenox. Patient unable to provide me with any meaningful history. severely decompensated. When I ask her a question she points to a wall and tells me she is going to walk through the door. Objective Data 03/10/17 03/10/17 03/10/17 06:59 14:59 22:59 Intake Total 480 ml Balance 480 ml Administered Medications Medications (Trade) Dose Ordered Sig/Valentina Route PRN Reason Start Time Stop Time Status Last Admin Dose Admin Nitrofurantoin Macrocrystals (Macrobid) 100 mg BID PO 03/10/17 13:30 03/10/17 13:12 Lorazepam (Ativan) 0.5 mg Q12H PRN PO MODERATE TO SEVERE ANXIETY 03/10/17 12:15 03/10/17 13:12 Diphenhydramine HCl (Benadryl) 25 mg Q6H PRN PO For mild anxiety and/or EPS 03/10/17 13:00 03/10/17 13:12 Objective Remarks GENERAL: Middle aged female upright in room staring at wall. SKIN: Warm and dry. HEAD: Normocephalic. EYES: No injection or drainage. NECK: Supple, trachea midline. CARDIOVASCULAR: Regular rate and rhythm RESPIRATORY: Breath sounds equal bilaterally. No accessory muscle use. GASTROINTESTINAL: Abdomen soft, non-tender, nondistended. EXTREMITIES: No cyanosis. lower extremity edema noted. NEUROLOGICAL: awake and alert. normal speech. Assessment/Plan Assessment 66y/o female with recurrent left lower extremity deep vein thromboses. history of bipolar disorder type 1, manic episode with psychosis. 04/08/15: positive occlusive deep vein thromboses of the left peroneal and posterior tibial veins. Subsequent Doppler ultrasound from 04/08/2016 of the left leg was normal. Another ultrasound from 10/05: no DVT 03/08/17: acute occlusive thrombus involving the distal superficial femoral vein , popliteal vein and posterior tibial veins. Plan 1. DVT: patient has been refusing Lovenox injections. for now will resume Xarelto. will consult case management rn for assistance. 2. monitor CBC Attending Statement The exam, history, and the medical decision-making described in the above note were completed with the assistance of the mid-level provider. I reviewed and agree with the findings presented. I attest that I had a [id number] encounter with the patient on the same day, and personally performed and documented my assessment and findings in the medical record. Deemed incapacitated, unable to make medical decisions independently. Still complaining about cost of Xarelto, however she was declining LMWH to bridge her to therapeutic INR. Responding to Xarelto with decrease leg swellling, chronic post phlebitic syndrome. Recommend elevate her legs, discussed w/ nursing in unit. Maria Eugenia Rivas Mar 10, 2017 14:05 Tiffany Santos MD Mar 10, 2017 20:04
--- NOTE | 2017-03-10 14:22 | HHI.HP ---
Provisional Diagnosis Admission Date Mar 10, 2017 at 12:00 [place] I. 1. Bipolar disorder, type I, presently manic, severe with psychotic features 2. Medication nonadherence [place] II. Deferred Certification of Person's Competence To Provide Express and Informed Consent I have personally examined Theresa Hurley , a person being served at [facility] on, Mar 10, 2017 13:47. Express and informed consent means consent voluntarily given in writing, by a competent person, after sufficient explanation and disclosure of the subject matter involved to enable the person to make a knowing and willful decision without any element of force, fraud, deceit, duress, or other form of constraint or coercion. This person is 18 years of age or older, is not now known to be incompetent to consent to treatment with a guardian advocate, and does not have a health care surrogate or proxy currently making medical treatment decisions. I have found this person to be one of the following: [] Competent to provide express and informed consent, as defined above, for voluntary admission to this facility and is competent to provide express and informed consent for treatment. He/she has the consistent capacity to make well reasoned, willful, and knowing decisions concerning his or her medical or mental health treatment. The person fully and consistently understands the purpose of the admission for examination/placement and is fully capable of personally exercising all rights assured [place] [x] Incompetent to provide express and informed consent to voluntary admission, and this is incompetent to provide express and informed consent to treatment. The person must be transferred to involuntary status and a petition for a guardian advocate filed with the Circuit Court. [] Refusing to provide express and informed consent to voluntary admission but is competent to provide express and informed consent for treatment. The person must be discharged or transferred to involuntary status. Form shall be completed within 24 hours of a person's arrival at the receiving facility and filed in the clinical record of each person: 1. Admitted on a voluntary basis 2. Permitted to provide express and informed consent to his/her own treatment 3. Allowed to transfer from involuntary to voluntary status 4. Prior to permitting a person to consent to his or her own treatment after having been previously found incompetent to consent to treatment. History of Present Illness Capacity: Lacks Capacity HPI Ms. Hurley is a 66-year-old female with a history of bipolar illness well known to the psychiatric service here from multiple prior psychiatric hospitalizations. She presented most recently to the emergency department under a Nino act per notes and was medically admitted as she had a left lower extremity DVT. She has a history of VTE. Dr. Garrett saw the patient in consultation and recommended psychiatric admission to the medical psychiatric unit. Reviewing the electronic medical record, I note that the patient was admitted most recently under Dr. Ca and was discharged on . Patient seen and examined. Chart reviewed. Case discussed with nursing staff. On my examination today, the patient presents as distractible, impulsive, disinhibited. Speech is rambling, at times nonsensical, and there is significant loosening of associations. When I ask her why she has come into the hospital she says "I tried to implement what I learned and learned all my life. I was no longer welcome back at [facility] because they no longer offer ECT. 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 Patient for example runs the palm of her hand all over her face and hair, saying she is making a "snowball" which she then pantomimes throwing across the room, saying "Frosty the Snowman!" She appears frankly internally preoccupied but cannot describe any audiovisual hallucinations. When I ask her about suicidal ideation or homicidal ideation, she simply stares intently at me and lows like a cow. Grandiosity present. No depressive symptoms. Remainder of the psychiatric ROS is negative. Past psychiatric history: Patient has a history of bipolar illness. She maintains that she is not currently under the care of a psychiatrist. She denies any interval psychiatric admissions or suicide attempts since her recent discharge from the inpatient psychiatric unit here. Review of Systems ROS Limitations: Psychotic, Poor Historian Except as stated in HPI: all other systems reviewed are Neg Past Psych History Psychological trauma history No reported trauma history to me Violence risk - others (6 mos) Indeterminate. Psychotic and unpredictable. Violence risk - self (6 mos) Elevated due to self-neglect. Patient has not been taking psychiatric or medical medications. Substance Abuse History Drugs/Alcohol past 12 months Patient unable to provide due to current mental status Past Family Social History Coded Allergies: Sulfa (Sulfonamide Antibiotics) (Verified Allergy, Severe, Hives, 03/08/17) ibuprofen (Verified Allergy, Severe, HIVES, 03/08/17) penicillin G (Verified Allergy, Severe, HIVES, 03/08/17) Past Medical History See electronic medical record Active Scripts Thiothixene (Thiothixene) 10 Mg Cap, 10 MG PO BID@08,16 for health, #60 CAP 0 Refills Prov:Tim Ca MD 03/01/17 Potassium Chloride Microencaps (Potassium Chloride Microencaps) 20 Meq Tab, 20 MEQ PO DAILY for health, #30 TAB 0 Refills Prov:Tim Ca MD 03/01/17 Olanzapine (Olanzapine) 15 Mg Tab, 15 MG PO BID for health, #60 TAB 0 Refills Prov:Tim Ca MD 03/01/17 Metoprolol Tartrate (Metoprolol Tartrate) 25 Mg Tab, 12.5 MG PO 1/2 po q 12 h for health, #30 TAB 0 Refills Prov:Tim Ca MD 03/01/17 Divalproex ER (Depakote ER) 500 Mg Diana, 1000 MG PO 2 po hshealth for health, #60 TAB 0 Refills Prov:Tim Ca MD 03/01/17 Amlodipine (Norvasc) 5 Mg Tab, 5 MG PO DAILY for health, #30 TAB 0 Refills Prov:Tim Ca MD 03/01/17 Thiothixene (Thiothixene) 10 Mg Cap, 10 MG PO DAILY@08,16 for Agitation, #60 CAP Prov:Abdoulaye Barclay DO 11/06/16 Divalproex ER (Depakote ER) 500 Mg Diana, 1000 MG PO HS for Anxiety and/or Insomnia, #28 TAB Prov:Abdoulaye Barclay DO 11/06/16 Amlodipine (Norvasc) 5 Mg Tab, 5 MG PO DAILY for Blood Pressure Management for 28 Days, BOTTLE 0 Refills Prov:Abdoulaye Barclay DO 11/06/16 Thiothixene (Thiothixene) 10 Mg Cap, 10 MG PO DAILY@08,16 for Mental Health for 0 Days, CAP 0 Refills Prov:Osiel Davis MD 11/01/16 Olanzapine Odt (Zyprexa Zydis) 20 Mg Tab, 20 MG PO HS for Mental Health for 0 Days, TAB 0 Refills Prov:Osiel Davis MD 11/01/16 Metoprolol Tartrate (Metoprolol Tartrate) 25 Mg Tab, 12.5 MG PO Q12HR for Blood Pressure Management for 0 Days, TAB 0 Refills Prov:Osiel Davis MD 11/01/16 Divalproex ER (Depakote ER) 500 Mg Diana, 1000 MG PO HS for Mental Health for 0 Days, TAB 0 Refills Prov:Osiel Davis MD 11/01/16 Reported Medications Nitrofurantoin Monohydrate Macrocrystals (Macrobid) 100 Mg Cap, 100 MG PO BID for Infection, #15 CAP 0 Refills 11/06/16 Olanzapine (Zyprexa) 20 Mg Tab, 20 MG PO HS, #30 TAB 0 Refills 11/06/16 Current Medications Medications (Trade) Dose Ordered Sig/Valentina Route Start Time Stop Time Status Last Admin (Norvasc) 5 mg DAILY PO 03/11/17 09:00 (Depakote Er) 1,000 mg HS PO 03/10/17 21:00 (Lopressor) 12.5 mg DAILY PO 03/11/17 09:00 (Macrobid) 100 mg BID PO 03/10/17 13:30 03/10/17 13:12 (ZyPREXA) 20 mg HS PO 03/10/17 21:00 (D50w (Vial) Inj) 50 ml UNSCH PRN IV 03/10/17 12:15 (Glucagon Inj) 1 mg UNSCH PRN OTHER 03/10/17 12:15 (NovoLOG SUPPLEMENTAL SCALE) 1 ACHS SLIDING SCALE SQ 03/10/17 16:00 (Ativan) 0.5 mg Q12H PRN PO 03/10/17 12:15 03/10/17 13:12 (Ativan Inj) 0.5 mg Q12H PRN IM 03/10/17 12:15 (Benadryl) 25 mg Q6H PRN PO 03/10/17 13:00 03/10/17 13:12 (Benadryl Inj) 25 mg Q6H PRN IM 03/10/17 12:15 (Tylenol) 650 mg Q4H PRN PO 03/10/17 12:15 (Milk Of Magnesia Liq) 30 ml DAILY PRN PO 03/10/17 12:15 (Mag-Al Plus Susp Liq) 30 ml Q6H PRN PO 03/10/17 12:15 (Habitrol 21 Mg Patch.24 Hr) 1 patch DAILY T-DERMAL 03/11/17 09:00 Miscellaneous Information 1 DAILY T-DERMAL 03/11/17 09:00 Family History Patient unable to provide due to current mental status Social History Patient unable to provide due to current mental status Patient's Strengths (min. 2) In a monitored setting. Verbally fluent. Physical Exam Physical exam completed by hospitalist prior to transfer to the inpatient psychiatric unit. On my examination today, the patient appears to be in no acute physical distress. I do note significant lower extremity edema bilaterally. No motor abnormalities noted. Labs and vitals reviewed: Vital Signs Vital Signs Label Value Date Time Patient Temperature 97.8 degrees F 03/01/17 0550 Pulse 100 03/01/17 0550 Respiratory Rate 15 bpm 03/01/17 0550 Blood Pressure Assessment 106/55 (72) 03/01/17 0550 Location L Arm Source Automatic Cuff Position Supine Bedside Pulse Oximetry 97 % 03/01/17 0550 I/O 03/10/17 03/10/17 03/11/17 08:00 16:00 00:00 Intake Total 480 ml Balance 480 ml Lab Results Item Value Date Time White Blood Count 4.6 TH/MM3 03/09/17 0647 Hemoglobin 10.5 GM/DL L 03/09/17 0647 Platelet Count 256 TH/MM3 03/09/17 0647 Sodium Level 137 MEQ/L 03/09/17 0647 Potassium Level 3.7 MEQ/L 03/09/17 0647 Chloride Level 104 MEQ/L 03/09/17 0647 Carbon Dioxide Level 23.2 MEQ/L 03/09/17 0647 Blood Urea Nitrogen 17 MG/DL 03/09/17 0647 Creatinine 0.89 MG/DL 03/09/17 0647 Random Glucose 166 MG/DL H 03/09/17 0647 Aspartate Amino Transf (AST/SGOT) 26 U/L 03/09/17 0647 Alanine Aminotransferase (ALT/SGPT) 20 U/L 03/09/17 0647 Alkaline Phosphatase 66 U/L 03/09/17 0647 Urine Barbiturates Screen NEG 03/08/17 1620 Urine Opiates Screen NEG 03/08/17 1620 Urine Amphetamines Screen NEG 03/08/17 1620 Urine Benzodiazepines Screen NEG 03/08/17 1620 Urine Cocaine Screen NEG 03/08/17 1620 Urine Cannabinoids Screen NEG 03/08/17 1620 Ethyl Alcohol Level LESS THAN 3 MG/DL 03/08/17 1450 Valproic Acid (Depakene) Level 8 MCG/ML L 03/08/17 1450 Chest x-ray read as no acute disease. Lower extremity ultrasound read as extensive acute thrombus. Mental Status Examination No motor abnormalities appreciated. Appearance Disheveled Speech: Rapid, Other (rambling) Orientation: Person, Place Memory: Unremarkable Thought Process: Loose Association Thought Content: Other (grandiosity) Language Average Fund of Knowledge At least average Hallucination Type: Auditory (appears internally preoccupied) Attention and Concentration: Easily Distracted Suicidal Ideation: No Previous Suicide Attempts: No Homicidal Ideation: No Previous Homicide Attempts: No Insight: Poor Judgment: Poor Affect: Other (expansive) Mood: Other (elevated) Assessment & Plan Problem List: (1) Bipolar disorder ICD Codes: F31.9 - Bipolar disorder, unspecified Status: Acute (2) Non compliance w medication regimen ICD Codes: Z91.14 - Patient's other noncompliance with medication regimen Assessment & Plan This is a 66-year-old female with psychiatric history as detailed above who is presently admitted to the medical psychiatric unit under a Nino act. Patient has multiple inpatient psychiatric hospitalizations, and medication adherence outside of the hospital setting seems to be an issue. I think it makes sense to try to switch the patient to an agent with readily available long-acting injectable antipsychotic. Patient requires psychiatric hospitalization at this time for safety, observation and stabilization. Admit inpatient. Involuntary status. I completed first opinion. Consult for second opinion. Request healthcare surrogate and guardian advocate. Continue Depakote ER 1 g at bedtime. LFTs and platelets okay. Plan to check a Depakote level after the appropriate interval. Replace Zyprexa with Risperdal M tabs 2 mg at bedtime with plans for possible long-acting injectable. Ativan as needed for anxiety, Benadryl as needed for EPS her sleep. Consult the hospitalist. Continue antihypertensives, antibiotics and Xarelto. Further adjustments as per the hospitalist. Consult of the physical therapist. Fall precautions. Vitals every shift. Counselor to see. Disposition planning. Estimated length of stay: 10-12 days. Discharge Planning Pending psychiatric stabilization Request HC Surrog/Guard Advoc?: Yes Problem Qualifiers (1) Bipolar disorder: Qualified Codes: F31.2 - Bipolar disorder, current episode manic severe with psychotic features Osiel Davis MD Mar 10, 2017 14:22
[2017-03-10] MEDS: INSULIN ASPART SUPPLEMENTAL SCALE SQ SCH ×2 (16:57→21:00)
[2017-03-10] MEDS: DIVALPROEX SODIUM E.R. 500 MG TAB PO SCH (21:00)
[2017-03-10] MEDS: DOXYCYCLINE HYCLATE 100 MG CAP PO SCH (21:00)
[2017-03-10] MEDS ORDERED: risperiDONE ODT 2 MG TAB PO SCH (21:00)
[2017-03-10] MEDS ORDERED: OLANZapine 10 MG TAB PO SCH (21:00)
[2017-03-10] MEDS: RIVAROXABAN 15 MG TAB PO SCH (21:00)
[2017-03-11] MEDS: INSULIN ASPART SUPPLEMENTAL SCALE SQ SCH ×4 (06:44→20:51)
[2017-03-11 07:06] VITALS: BP 118/56; PULSE 110; RESP 18; TEMP 97.9; O2SAT 98
--- NOTE | 2017-03-11 07:08 | HHI.PYPN ---
Subjective Remarks Patient seen and examined. Chart reviewed. Case discussed with nursing staff. Patient slept poorly overnight. On my examination this morning the patient remains quite manic. Sitter at the bedside. Affect is silly and expansive. She greets me as "Baby doc! Baby doc! I have a baby baby watching every move I make!" Disinhibited, impulsive. Speech pressured. Breaks into song. No side effects from medications. Tells me, "I can't lift this [left] arm!" She then proceeds to lift both arms equally with vanda of laughter. No focal weakness. No other physical complaints. Review of Systems ROS Limitations: Psychotic, Poor Historian Except as stated in HPI: all other systems reviewed are Neg Objective Alert: Yes [place]: Person, Place Mood: Other (elevated) Affect: Other (expansive) Memory Intact: Comment (not formally assessed) Hallucinations: Other (no AVH) Delusions: Yes Delusion Type: Grandiose Suicidal: Ideation (no SI) Homicidal: Ideation (no HI) Insight/Judgment poor Remarks no motor abnormalities noted. Thought process with ongoing loosening of associations. Grooming and hygiene poor. Speech pressured and rambling. Labs Labs reviewed. Labs ordered for this morning are listed as in process. Vitals/IOs Vital Signs Date Time Temp Pulse Resp B/P (MAP) Pulse Ox O2 Delivery O2 Flow Rate FiO2 03/11/17 07:06 97.9 110 18 118/56 (76) 98 Intake and Output 03/11/17 03/11/17 03/12/17 08:00 16:00 00:00 Intake Total 360 ml Balance 360 ml Assessment & Plan Problem List: (1) Bipolar disorder ICD Codes: F31.9 - Bipolar disorder, unspecified Status: Acute (2) Non compliance w medication regimen ICD Codes: Z91.14 - Patient's other noncompliance with medication regimen Assessment & Plan Titrate Risperdal to 3 mg at bedtime for mood stabilization and psychosis. Continue Depakote as ordered. To consider adding a hypnotic. Awaiting hospitalist consultation. Hematology input noted and appreciated. Continue to monitor on the medical psychiatric unit. Continue other medications and care as ordered. Justification for Cont. Inpt. Impairment in reality construction. Impairment in self-care. Medication changes in process. High risk for decompensation in less restrictive environment. Discharge Planning Pending stabilization Request HC Surrog/Guard Advoc?: Yes Problem Qualifiers (1) Bipolar disorder: Qualified Codes: F31.2 - Bipolar disorder, current episode manic severe with psychotic features Osiel Davis MD Mar 11, 2017 07:08
[2017-03-11] MEDS: METOPROLOL TARTRATE 25 MG TAB PO SCH (09:23)
[2017-03-11] MEDS: amLODIPine BESYLATE 5 MG TAB PO SCH (09:23)
[2017-03-11] MEDS: NICOTINE 21 MG/24 HR PATCH T-DERMAL SCH (09:26)
[2017-03-11] MEDS: REMOVE OLD PATCH T-DERMAL SCH (09:30)
[2017-03-11] MEDS: DOXYCYCLINE HYCLATE 100 MG CAP PO SCH ×3 (09:36→20:44)
[2017-03-11] MEDS: RIVAROXABAN 15 MG TAB PO SCH ×3 (09:36→20:44)
[2017-03-11] MEDS: NITROFURANTOIN MONOHYD MACROCR 100 MG CAP PO SCH ×3 (09:36→20:44)
[2017-03-11 12:53] LABS: ANION GAP 10 MEQ/L (5-15); BLOOD UREA NITROGEN 15 MG/DL (7-18); CHLORIDE 104 MEQ/L (98-107); GLOMERULAR FILTRATION RATE 53 ML/MIN (>89); SODIUM (NA) 139 MEQ/L (136-145)
[2017-03-11 12:56] LABS: HDL CHOLESTEROL 22.8 MG/DL (40.0-60.0); LDL CHOLESTEROL 82 MG/DL (0-99)
[2017-03-11] MEDS ORDERED: OLANZapine IM 10 MG VIAL IM STA ×2 (13:41→17:23)
[2017-03-11 18:18] VITALS: BP 126/62; PULSE 104; RESP 28; O2SAT 98
--- NOTE | 2017-03-11 18:27 | HHI.PYPN ---
Subjective Remarks This is a request for second opinion. Admission note was reviewed and I agree with the history. Patient was seen and case discussed with nursing. Patient remains disorganized and acutely psychotic. She is labile, at times yelling, sexually preoccupied, internally stimulated and loose. Vitals are within normal limits. Nursing has had difficulty finding a proxy so she has only been getting ETOs at this time. Pt denies suicidal ideation intent or plan Objective Alert: Yes [place]: Person Mood: Other (elevated) Affect: Labile, Manic, Other (expansive) Memory Intact: Comment (not formally assessed) Hallucinations: Other (laughs when asked) Delusions: Yes Delusion Type: Grandiose Suicidal: Ideation (no SI) Homicidal: Ideation (no HI) Insight/Judgment poor Labs Test 03/11/17 10:36 Blood Urea Nitrogen 15 MG/DL Creatinine 1.04 MG/DL Random Glucose 206 MG/DL Calcium Level 9.1 MG/DL Sodium Level 139 MEQ/L Potassium Level 4.0 MEQ/L Chloride Level 104 MEQ/L Carbon Dioxide Level 25.0 MEQ/L Anion Gap 10 MEQ/L Estimat Glomerular Filtration Rate 53 ML/MIN Triglycerides Level 207 MG/DL Cholesterol Level 146 MG/DL LDL Cholesterol 82 MG/DL HDL Cholesterol 22.8 MG/DL Cholesterol/HDL Ratio 6.40 RATIO Vitals/IOs Vital Signs Date Time Temp Pulse Resp B/P (MAP) Pulse Ox O2 Delivery O2 Flow Rate FiO2 03/11/17 18:18 104 28 126/62 (83) 98 03/11/17 07:06 97.9 Intake and Output 03/11/17 03/11/17 03/12/17 08:00 16:00 00:00 Intake Total 360 ml Balance 360 ml Assessment & Plan Problem List: (1) Bipolar disorder ICD Codes: F31.9 - Bipolar disorder, unspecified Status: Acute (2) Non compliance w medication regimen ICD Codes: Z91.14 - Patient's other noncompliance with medication regimen Assessment & Plan I agree with first opinion to continue petition. Criteria include acute psychosis and poor medication compliance before admission. Nursing will continue to work on getting daughter on the phone Justification for Cont. Inpt. Pt would decompensate in a less restrictive setting. Request HC Surrog/Guard Advoc?: Yes Problem Qualifiers (1) Bipolar disorder: Qualified Codes: F31.2 - Bipolar disorder, current episode manic severe with psychotic features Cody Chaidez DO Mar 11, 2017 18:27
[2017-03-11] MEDS: DIVALPROEX SODIUM E.R. 500 MG TAB PO SCH (20:44)
[2017-03-11] MEDS ORDERED: risperiDONE ODT 3 MG TAB PO SCH (21:00)
[2017-03-11 23:23] VITALS: BP 121/73; PULSE 94; RESP 16; O2SAT 96
[2017-03-11] MEDS ORDERED: ZIPRASIDONE MESYLATE 20 MG VIAL IM ONE (23:30)
[2017-03-12 06:13] VITALS: BP 151/63; PULSE 110; RESP 18; TEMP 97.9; O2SAT 95
[2017-03-12] MEDS: INSULIN ASPART SUPPLEMENTAL SCALE SQ SCH ×4 (06:49→21:00)
--- NOTE | 2017-03-12 07:08 | HHI.PYPN ---
Subjective Remarks Patient seen and examined. Chart reviewed. Case discussed with nursing staff. Patient required Zyprexa ETO times 2 yesterday because of ongoing manic symptoms. Psychotropics had to be placed back on hold for lack of consent. There apparently has been great difficulty in contacting anyone who could provide consent. I was called overnight to provide additional Geodon ETO, but the patient did not require it and finally fell asleep per nursing staff. On my examination this morning, patient remains with one-to-one. She is manic and impulsive. Seeing me, she yells out "Oz! The Wizard of Oz!" She raises her hands up in the air, as if in exaltation. When I ask about sleep she calls out "sleepless in [place]!" No side effects from medications. No physical complaints. Despite her manic state, she is quite understanding and conversant regarding her medications. Patient says she is willing to take the psychotropics I have ordered for her, somewhat less interested in PEREZ at this point. Review of Systems ROS Limitations: Psychotic, Poor Historian Except as stated in HPI: all other systems reviewed are Neg Objective Alert: Yes [place]: Person, Place, Date Mood: Other (remains elevated) Affect: Labile, Other (remains expansive) Memory Intact: Comment (not formally assessed) Hallucinations: Other (no AVH) Delusions: Yes Delusion Type: Grandiose Suicidal: Ideation (no SI) Homicidal: Ideation (no HI) Insight/Judgment Poor Remarks No motor abnormalities noted. Labs Test 03/11/17 10:36 Blood Urea Nitrogen 15 MG/DL Creatinine 1.04 MG/DL Random Glucose 206 MG/DL Calcium Level 9.1 MG/DL Sodium Level 139 MEQ/L Potassium Level 4.0 MEQ/L Chloride Level 104 MEQ/L Carbon Dioxide Level 25.0 MEQ/L Anion Gap 10 MEQ/L Estimat Glomerular Filtration Rate 53 ML/MIN Triglycerides Level 207 MG/DL Cholesterol Level 146 MG/DL LDL Cholesterol 82 MG/DL HDL Cholesterol 22.8 MG/DL Cholesterol/HDL Ratio 6.40 RATIO Labs reviewed Vitals/IOs Vital Signs Date Time Temp Pulse Resp B/P (MAP) Pulse Ox O2 Delivery O2 Flow Rate FiO2 03/12/17 06:13 97.9 110 18 151/63 (92) 95 Intake and Output 03/12/17 03/12/17 03/13/17 08:00 16:00 00:00 Intake Total 720 ml Balance 720 ml Assessment & Plan Problem List: (1) Bipolar disorder ICD Codes: F31.9 - Bipolar disorder, unspecified Status: Acute (2) Non compliance w medication regimen ICD Codes: Z91.14 - Patient's other noncompliance with medication regimen Assessment & Plan Scheduled psychotropics on hold for lack of consent. The patient remains severely manic. I do believe however that she is not so decompensated as to be unable to consent for medications. The risk/benefit profile certainly favors initiation of scheduled psychotropics. 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 Risperdal and Depakote as before. No dose adjustments as she did not receive these medications last night. Awaiting hospitalist input, consult placed 03/10, reconsult. Hematology input appreciated. Continue to monitor on the medical psychiatric unit. Continue other medications and care as ordered. Justification for Cont. Inpt. Risk for decompensation in less restrictive environment. Complicating conditions. Impairment in reality construction. Discharge Planning Pending stabilization Request HC Surrog/Guard Advoc?: Yes Problem Qualifiers (1) Bipolar disorder: Qualified Codes: F31.2 - Bipolar disorder, current episode manic severe with psychotic features Osiel Davis MD Mar 12, 2017 07:08
[2017-03-12] MEDS: NICOTINE 21 MG/24 HR PATCH T-DERMAL SCH (08:39)
[2017-03-12] MEDS: REMOVE OLD PATCH T-DERMAL SCH (08:39)
[2017-03-12] MEDS: amLODIPine BESYLATE 5 MG TAB PO SCH (08:40)
[2017-03-12] MEDS: METOPROLOL TARTRATE 25 MG TAB PO SCH (08:40)
[2017-03-12] MEDS: NITROFURANTOIN MONOHYD MACROCR 100 MG CAP PO SCH ×2 (08:40→21:00)
[2017-03-12] MEDS: RIVAROXABAN 15 MG TAB PO SCH ×2 (08:40→21:00)
[2017-03-12] MEDS: DOXYCYCLINE HYCLATE 100 MG CAP PO SCH ×2 (08:40→21:00)
[2017-03-12 13:00] LABS: HEMOGLOBIN A1a 1.1 %; HEMOGLOBIN A1b 2.4 %; HEMOGLOBIN Ao 81.2 %; HEMOGLOBIN LA1C 2.7 %; HEMOGLOBIN P3 4.3 %
--- NOTE | 2017-03-12 13:23 | HHI.HP ---
History of Present Illness Primary Care Physician Abdoulaye Barclay, DO Admission Diagnosis BPAD DVT left leg Diagnoses: History of Present Illness pt has long hx of psychiatric disorders recently stabilized at [facility] but went off her meds at home and returned to ED with a DVT and schitzophrenia Review of Systems Musculoskeletal: COMPLAINS OF: Muscle aches Psychiatric: COMPLAINS OF: Mood changes, Depression, Hallucinations Past Family Social History Allergies: Coded Allergies: Sulfa (Sulfonamide Antibiotics) (Verified Allergy, Severe, Hives, 03/08/17) ibuprofen (Verified Allergy, Severe, HIVES, 03/08/17) penicillin G (Verified Allergy, Severe, HIVES, 03/08/17) Past Medical History schitzophrenia, hypertension, cardiac dysrrythmias Past Surgical History none known Reported Medications Reported Meds & Active Scripts Active Thiothixene 10 Mg Cap 10 Mg PO BID@08,16 Potassium Chloride Microencaps 20 Meq Tab 20 Meq PO DAILY Olanzapine 15 Mg Tab 15 Mg PO BID Metoprolol Tartrate 25 Mg Tab 12.5 Mg PO 1/2 PO Q 12 H Depakote ER (Divalproex Sodium) 500 Mg Diana 1,000 Mg PO 2 PO [facility] Norvasc (Amlodipine Besylate) 5 Mg Tab 5 Mg PO DAILY Thiothixene 10 Mg Cap 10 Mg PO DAILY@08,16 Depakote ER (Divalproex Sodium) 500 Mg Diana 1,000 Mg PO HS Norvasc (Amlodipine Besylate) 5 Mg Tab 5 Mg PO DAILY 28 Days Thiothixene 10 Mg Cap 10 Mg PO DAILY@08,16 0 Days Zyprexa Zydis (Olanzapine) 20 Mg Tab 20 Mg PO HS 0 Days Metoprolol Tartrate 25 Mg Tab 12.5 Mg PO Q12HR 0 Days Depakote ER (Divalproex Sodium) 500 Mg Diana 1,000 Mg PO HS 0 Days Reported Macrobid (Nitrofurantoin Monoh/Nitrofur Macro) 100 Mg Cap 100 Mg PO BID Zyprexa (Olanzapine) 20 Mg Tab 20 Mg PO HS Active Ordered Medications Inpatient Medications Acetaminophen (Tylenol) 650 mg Q4H PRN PO Pain 1-5 or Temp >101F; Start at 12:15 Al Hydrox/Mg Hydrox/Simethicone (Mag-Al Plus Susp Liq) 30 ml Q6H PRN PO DYSPEPSIA; Start 03/10/17 at 12:15 Amlodipine Besylate (Norvasc) 5 mg DAILY PO Last administered on 03/12/17 08:40 ; Start 03/11/17 at 09:00 Dextrose (D50w (Vial) Inj) 50 ml UNSCH PRN IV HYPOGLYCEMIA-SEE COMMENTS; Start 03/10/17 at 12:15 Diphenhydramine HCl (Benadryl Inj) 25 mg Q6H PRN IM For mild anxiety and/or EPS ; Start 03/10/17 at 12:15; Status Future Hold Diphenhydramine HCl (Benadryl) 25 mg Q6H PRN PO For mild anxiety and/or EPS Last administered on 03/10/17 13:12; Start 03/10/17 at 13:00; Status Future Hold Divalproex Sodium (Depakote Er) 1,000 mg HS PO Last administered on 03/10/17 21 :00; Start 03/10/17 at 21:00; Status Future Hold Doxycycline Hyclate (Vibramycin) 100 mg BID PO Last administered on 03/12/17 08 :40; Start 03/10/17 at 21:00 Glucagon (Glucagon Inj) 1 mg UNSCH PRN OTHER HYPOGLYCEMIA-SEE COMMENTS; Start 03/10/17 at 12:15 Insulin Aspart (NovoLOG SUPPLEMENTAL SCALE) 1 ACHS SLIDING SCALE SQ Last administered on 03/12/17 11:00; Start 03/10/17 at 16:00 Lorazepam (Ativan Inj) 0.5 mg Q12H PRN IM MODERATE TO SEVERE ANXIETY; Start 03/10/17 at 12:15; Status Future Hold Lorazepam (Ativan) 0.5 mg Q12H PRN PO MODERATE TO SEVERE ANXIETY Last administered on 03/10/17 13:12; Start 03/10/17 at 12:15; Status Future Hold Magnesium Hydroxide (Milk Of Magnesia Liq) 30 ml DAILY PRN PO CONSTIPATION; Start 03/10/17 at 12:15 Metoprolol Tartrate (Lopressor) 12.5 mg DAILY PO Last administered on 03/12/17 08:40; Start 03/11/17 at 09:00 Miscellaneous Information 1 DAILY T-DERMAL ; Start 03/11/17 at 09:00 Nicotine (Habitrol 21 Mg Patch.24 Hr) 1 patch DAILY T-DERMAL ; Start 03/11/17 at 09:00 Nitrofurantoin Macrocrystals (Macrobid) 100 mg BID PO Last administered on 08:40; Start 03/10/17 at 13:30 Olanzapine (ZyPREXA INJ) 10 mg STAT STAT IM Last administered on 03/11/17 17: 30; Start 03/11/17 at 17:23; Stop 03/11/17 at 17:26; Status DC Olanzapine (ZyPREXA) 20 mg HS PO ; Start 03/10/17 at 21:00; Stop 03/10/17 at 21:00 ; Status DC Risperidone (risperDAL M-TAB) 3 mg HS PO ; Start 03/11/17 at 21:00; Status Future Hold Rivaroxaban (Xarelto) 15 mg BID PO Last administered on 03/12/17 08:40; Start 03/10/17 at 21:00 Ziprasidone (Geodon Inj) 10 mg NOW ONCE IM ; Start 03/11/17 at 23:30; Stop at 23:31; Status DC Family History pos for psychiatric disorders Social History non smoker rare drinker no drugs Physical Exam Vital Signs Vital Signs Date Time Temp Pulse Resp B/P (MAP) Pulse Ox O2 Delivery O2 Flow Rate FiO2 03/12/17 06:13 97.9 110 18 151/63 (92) 95 03/11/17 23:23 94 16 121/73 (89) 96 03/11/17 18:18 104 28 126/62 (83) 98 Physical Exam GENERAL: This is a well-nourished, well-developed patient, in no apparent distress. SKIN: No rashes, ecchymoses or lesions. Cool and dry. HEAD: Atraumatic. Normocephalic. No temporal or scalp tenderness. EYES: Pupils equal round and reactive. Extraocular motions intact. No scleral icterus. No injection or drainage. ENT: Nose without bleeding, purulent drainage or septal hematoma. Throat without erythema, tonsillar hypertrophy or exudate. Uvula midline. Airway patent. NECK: Trachea midline. No JVD or lymphadenopathy. Supple, nontender, no meningeal signs. CARDIOVASCULAR: Regular rate and rhythm without murmurs, gallops, or rubs. RESPIRATORY: Clear to auscultation. Breath sounds equal bilaterally. No wheezes , rales, or rhonchi. GASTROINTESTINAL: Abdomen soft, non-tender, nondistended. No hepato-splenomegaly , or palpable masses. No guarding. MUSCULOSKELETAL: tenderness left calf NEUROLOGICAL: Awake and alert. Cranial nerves II through XII intact. Motor and sensory grossly within normal limits. Five out of 5 muscle strength in all muscle groups. Normal speech. confused hallucinating Result Diagram: 03/11/17 1036 Imaging dvt left leg Caprini VTE Risk Assessment Caprini VTE Risk Assessment: Mod/High Risk (score >= 2) Caprini Risk Assessment Model Point Value = 1 Point Value = 2 Point Value = 3 Point Value = 5 Age 41-60 Minor surgery BMI > 25 kg/m2 Swollen legs Varicose veins or History of unexplained or recurrent spontaneous Oral contraceptives or hormone replacement Sepsis (< 1 month) Serious lung disease, including pneumonia (< 1 month) Abnormal pulmonary function Acute myocardial infarction Congestive heart failure (< 1 month) History of inflammatory bowel disease Medical patient at bed rest Age 61-74 Arthroscopic surgery Major open surgery (> 45 min) Laparoscopic surgery (> 45 min) Malignancy Confined to bed (> 72 hours) Immobilizing plaster cast Central venous access Age >= 75 History of VTE Family history of VTE Factor V Leiden Prothrombin [id number] Lupus anticoagulant Anticardiolipin antibodies Elevated serum homocysteine Heparin-induced thrombocytopenia Other congenital or acquired thrombophilia Stroke (< 1 month) Elective arthroplasty Hip, pelvis, or leg fracture Acute spinal cord injury (< 1 month) Prophylaxis Regimen Total Risk Factor Score Risk Level Prophylaxis Regimen 0-1 Low Early ambulation 2 Moderate Order ONE of the following: *Sequential Compression Device (SCD) *Heparin 5000 units SQ BID 3-4 Higher Order ONE of the following medications: *Heparin 5000 units SQ TID *Enoxaparin/Lovenox 40 mg SQ daily (WT < 150 kg, CrCl > 30 mL/min) *Enoxaparin/Lovenox 30 mg SQ daily (WT < 150 kg, CrCl > 10-29 mL/min) *Enoxaparin/Lovenox 30 mg SQ BID (WT < 150 kg, CrCl > 30 mL/min) AND/OR *Sequential Compression Device (SCD) 5 or more Highest Order ONE of the following medications: *Heparin 5000 units SQ TID (Preferred with Epidurals) *Enoxaparin/Lovenox 40 mg SQ daily (WT < 150 kg, CrCl > 30 mL/min) *Enoxaparin/Lovenox 30 mg SQ daily (WT < 150 kg, CrCl > 10-29 mL/min) *Enoxaparin/Lovenox 30 mg SQ BID (WT < 150 kg, CrCl > 30 mL/min) AND *Sequential Compression Device (SCD) Assessment and Plan Problem List: (1) DVT (deep venous thrombosis) ICD Codes: I82.409 - Acute embolism and thrombosis of unspecified deep veins of unspecified lower extremity Status: Acute Plan: xarelto (2) Hypertension ICD Codes: I10 - Hypertension Status: Acute Plan: currently controlled with norvasc Assessment and Plan dvt hptn stable continue current regeime will need out patient payor source for xarelto Discussed Condition With nursing and patient Abdoulaye Barclay DO Mar 12, 2017 13:23
[2017-03-12] MEDS ORDERED: diphenhydrAMINE HCL 50 MG/ML VIAL IM PRN (13:45)
[2017-03-12 18:00] VITALS: BP 108/62; PULSE 100; RESP 18; TEMP 98.8; O2SAT 95
[2017-03-12] MEDS ORDERED: DIVALPROEX SODIUM E.R. 500 MG TAB PO SCH (21:00)
[2017-03-12] MEDS: risperiDONE ODT 3 MG TAB PO SCH (21:00)
[2017-03-13 05:08] VITALS: BP 119/60; PULSE 124; RESP 17; TEMP 99.2; O2SAT 96
[2017-03-13] MEDS: INSULIN ASPART SUPPLEMENTAL SCALE SQ SCH ×4 (06:34→21:00)
[2017-03-13] MEDS: amLODIPine BESYLATE 5 MG TAB PO SCH (08:44)
[2017-03-13] MEDS: NITROFURANTOIN MONOHYD MACROCR 100 MG CAP PO SCH ×2 (08:44→21:37)
[2017-03-13] MEDS: METOPROLOL TARTRATE 25 MG TAB PO SCH (08:44)
[2017-03-13] MEDS: DOXYCYCLINE HYCLATE 100 MG CAP PO SCH ×2 (08:44→21:37)
[2017-03-13] MEDS: RIVAROXABAN 15 MG TAB PO SCH ×2 (08:45→21:37)
[2017-03-13] MEDS: NICOTINE 21 MG/24 HR PATCH T-DERMAL SCH (08:45)
[2017-03-13] MEDS: REMOVE OLD PATCH T-DERMAL SCH (09:00)
--- NOTE | 2017-03-13 10:32 | HHI.PYPN ---
Subjective Remarks Patient seen and examined. Chart reviewed. Case discussed with nursing staff. On my examination today, the patient is somewhat calmer than in previous days per remains quite manic. She says that she plans to breakfast with Sunday Black. Affect expansive. Grandiosity present. Refused Depakote and Risperdal yesterday evening but accepting morning meds today per RN. No physical complaints. No side effects from medications. Review of Systems ROS Limitations: Psychotic, Poor Historian Except as stated in HPI: all other systems reviewed are Neg Objective Alert: Yes [place]: Person, Place, Date Mood: Other (elevated) Affect: Other (expansive) Memory Intact: Comment (not assessed) Hallucinations: Other (none) Delusions: Yes Delusion Type: Grandiose (ongoing) Suicidal: Ideation (no SI) Homicidal: Ideation (no HI) Insight/Judgment Poor Remarks No motor abnormalities noted Labs Labs reviewed. Vitals/IOs Vital Signs Date Time Temp Pulse Resp B/P (MAP) Pulse Ox O2 Delivery O2 Flow Rate FiO2 03/13/17 05:08 99.2 124 17 119/60 (79) 96 Assessment & Plan Problem List: (1) Bipolar disorder ICD Codes: F31.9 - Bipolar disorder, unspecified Status: Acute (2) Non compliance w medication regimen ICD Codes: Z91.14 - Patient's other noncompliance with medication regimen Assessment & Plan Move Depakote to morning to try to improve adherence as patient seems to do better with taking meds during day. Check EKG given tachycardia, although I suspect this is largely related to agitation from manic state. Hospitalist input appreciated. Continue to monitor on the inpatient unit. Continue other medications and care as ordered. Justification for Cont. Inpt. Impairment in reality construction. Risk for decompensation and less restrictive environment. Discharge Planning Pending psychiatric stabilization Request HC Surrog/Guard Advoc?: Yes Problem Qualifiers (1) Bipolar disorder: Qualified Codes: F31.2 - Bipolar disorder, current episode manic severe with psychotic features Osiel Davis MD Mar 13, 2017 10:32
--- NOTE | 2017-03-13 11:30 | HHI.PR ---
Subjective Remarks oing well leg improved has now been on anticoax x 5 days Objective Vital Signs Date Time Temp Pulse Resp B/P (MAP) Pulse Ox O2 Delivery O2 Flow Rate FiO2 03/13/17 05:08 99.2 124 17 119/60 (79) 96 03/12/17 18:00 98.8 100 18 108/62 (77) 95 I/O 03/12/17 03/12/17 03/12/17 03/13/17 03/13/17 03/13/17 07:00 15:00 23:00 07:00 15:00 23:00 Intake Total 720 ml 600 ml 480 ml Balance 720 ml 600 ml 480 ml Intake Oral 720 ml 600 ml 480 ml # Voids 2 1 5 1 # Bowel Movements 1 Result Diagram: 03/11/17 1036 Objective Remarks GENERAL: Well-nourished, well-developed patient. SKIN: Warm and dry. HEAD: Normocephalic. EYES: No scleral icterus. No injection or drainage. NECK: Supple, trachea midline. No JVD or lymphadenopathy. CARDIOVASCULAR: Regular rate and rhythm without murmurs, gallops, or rubs. RESPIRATORY: Breath sounds equal bilaterally. No accessory muscle use. GASTROINTESTINAL: Abdomen soft, non-tender, nondistended. EXTREMITIES: No cyanosis,l leg edema and erythema reduced NEUROLOGICAL: Awake, alert, Non-focal. Medications and IVs Inpatient Medications Acetaminophen (Tylenol) 650 mg Q4H PRN PO Pain 1-5 or Temp >101F; Start at 12:15 Al Hydrox/Mg Hydrox/Simethicone (Mag-Al Plus Susp Liq) 30 ml Q6H PRN PO DYSPEPSIA; Start 03/10/17 at 12:15 Amlodipine Besylate (Norvasc) 5 mg DAILY PO Last administered on 03/13/17t 08:44 ; Start 03/11/17 at 09:00 Dextrose (D50w (Vial) Inj) 50 ml UNSCH PRN IV HYPOGLYCEMIA-SEE COMMENTS; Start 03/10/17 at 12:15 Diphenhydramine HCl (Benadryl Inj) 25 mg Q6H PRN IM For mild anxiety and/or EPS ; Start 03/12/17 at 13:45 Diphenhydramine HCl (Benadryl) 25 mg Q6H PRN PO For mild anxiety and/or EPS; Start 03/12/17 at 13:45 Divalproex Sodium (Depakote Er) 1,000 mg DAILY PO ; Start 03/13/17 at 11:00 Doxycycline Hyclate (Vibramycin) 100 mg BID PO Last administered on 03/13/17 08 :44; Start 03/10/17 at 21:00 Glucagon (Glucagon Inj) 1 mg UNSCH PRN OTHER HYPOGLYCEMIA-SEE COMMENTS; Start 03/10/17 at 12:15 Insulin Aspart (NovoLOG SUPPLEMENTAL SCALE) 1 ACHS SLIDING SCALE SQ Last administered on 03/13/17 06:34; Start 03/10/17 at 16:00 Lorazepam (Ativan Inj) 0.5 mg Q12H PRN IM MODERATE TO SEVERE ANXIETY; Start 03/12/17 at 13:45 Lorazepam (Ativan) 0.5 mg Q12H PRN PO MODERATE TO SEVERE ANXIETY; Start at 13:45 Magnesium Hydroxide (Milk Of Magnesia Liq) 30 ml DAILY PRN PO CONSTIPATION; Start 03/10/17 at 12:15 Metoprolol Tartrate (Lopressor) 12.5 mg DAILY PO Last administered on 03/13/17 08:44; Start 03/11/17 at 09:00 Miscellaneous Information 1 DAILY T-DERMAL ; Start 03/11/17 at 09:00 Nicotine (Habitrol 21 Mg Patch.24 Hr) 1 patch DAILY T-DERMAL ; Start 03/11/17 at 09:00 Nitrofurantoin Macrocrystals (Macrobid) 100 mg BID PO Last administered on 08:44; Start 03/10/17 at 13:30 Olanzapine (ZyPREXA INJ) 10 mg STAT STAT IM Last administered on 03/11/17 17: 30; Start 03/11/17 at 17:23; Stop 03/11/17 at 17:26; Status DC Olanzapine (ZyPREXA) 20 mg HS PO ; Start 03/10/17 at 21:00; Stop 03/10/17 at 21:00 ; Status DC Risperidone (risperDAL M-TAB) 3 mg HS PO ; Start 03/12/17 at 21:00 Rivaroxaban (Xarelto) 15 mg BID PO Last administered on 03/13/17 08:45; Start 03/10/17 at 21:00 Ziprasidone (Geodon Inj) 10 mg NOW ONCE IM ; Start 03/11/17 at 23:30; Stop at 23:31; Status DC Assessment and Plan Problem List: (1) DVT (deep venous thrombosis) ICD Codes: I82.409 - Acute embolism and thrombosis of unspecified deep veins of unspecified lower extremity Status: Acute Plan: xarelto (2) Hypertension ICD Codes: I10 - Hypertension Status: Acute Plan: currently controlled with norvasc Assessment and Plan dvt hptn stable continue current regeime will need out patient payor source for xarelto medically cleared to transfer to psych unit Discussed Condition With patient and nursing Discharge Planning [facility] Abdoulaye Barclay DO Mar 13, 2017 11:29
[2017-03-13] MEDS: DIVALPROEX SODIUM E.R. 500 MG TAB PO SCH (12:38)
[2017-03-13 18:18] VITALS: BP 120/63; PULSE 98; RESP 19; TEMP 97; O2SAT 98
--- NOTE | 2017-03-13 20:20 | EKG ---
Date Performed: 03/13/2017 Time Performed: 11:23:27 PTAGE: 66 years EKG: Sinus rhythm POSSIBLE LEFT ATRIAL ENLARGEMENT MARKED LEFT AXIS DEVIATION POSSIBLE LEFT VENTRICULAR HYPERTROPHY PO SSIBLE ANTEROSEPTAL MYOCARDIAL INFARCTION , OF INDETERMINATE AGE ABNORMAL ECG PREVIOUS TRACING : 02/23/2017 14.34 DOCTOR: Dada Grimes Interpretating Date/Time 03/13/2017 20:17:32
[2017-03-13] MEDS: risperiDONE ODT 3 MG TAB PO SCH (21:37)
[2017-03-14 05:50] VITALS: BP 94/56; PULSE 93; RESP 16; TEMP 97.3; O2SAT 97
[2017-03-14] MEDS: INSULIN ASPART SUPPLEMENTAL SCALE SQ SCH ×4 (06:05→21:27)
[2017-03-14] MEDS: LORazepam 2 MG/ML VIAL IM PRN (07:13)
--- NOTE | 2017-03-14 07:19 | HHI.PYPN ---
Subjective Remarks Patient seen and examined. Chart reviewed. Case discussed in treatment team. Patient did accept Depakote and Risperdal yesterday. Case discussed in treatment team. Patient transferred to the 2500 unit overnight. On my examination this morning, the patient remains hyperverbal and manic. She is belting out songs in the day area. When she sees me, she grits her teeth and says "I can't talk to you." When I ask why she only says, "Barclay." Nursing administers behavioral PRN, and patient yells out "Bandaid! Bandaid! Bandaid! Bandaids for everybody!' No sedation or other evidence side effects from medications. No physical complaints. Review of Systems ROS Limitations: Psychotic, Poor Historian Except as stated in HPI: all other systems reviewed are Neg Objective Alert: Yes [place]: Person, Place, Date Mood: Other (remains elevated) Affect: Manic, Other (remains expansive) Memory Intact: Comment (not assessed) Hallucinations: Other (no AVH) Delusions: Yes Delusion Type: Grandiose Suicidal: Ideation (no SI) Homicidal: Ideation (no HI) Insight/Judgment Poor Remarks No motor abnormalities noted. Thought process with significant loosening of associations. Grooming and hygiene poor. Labs Test 03/13/17 19:43 Ammonia 20 MCMOL/L Valproic Acid (Depakene) Level 58 MCG/ML Labs reviewed. Given nonadherence with Depakote, Depakote level likely underrepresents true Depakote level. Vitals/IOs Vital Signs Date Time Temp Pulse Resp B/P (MAP) Pulse Ox O2 Delivery O2 Flow Rate FiO2 03/14/17 05:50 97.3 93 16 94/56 (69) 97 Assessment & Plan Problem List: (1) Bipolar disorder ICD Codes: F31.9 - Bipolar disorder, unspecified Status: Acute (2) Non compliance w medication regimen ICD Codes: Z91.14 - Patient's other noncompliance with medication regimen Assessment & Plan Patient requires additional medication for mood stabilization. Add Risperdal 1 mg daily to existing nighttime dose. Consider Consta/Sustenna. Continue Depakote as ordered. Plan to check an updated Depakote level after several days of adherence to get a better sense of her true Depakote level. Continue to monitor on the inpatient unit. Continue other medications and care as ordered. Justification for Cont. Inpt. Medication changes. Impairment in reality construction. High risk for decompensation in less restrictive environment. Discharge Planning Pending psychiatric stabilization. Based on treatment team discussion of long- term issues with non-adherence, I think patient is a good candidate for involuntary OP commitment program, and I will start a petition for this and consult for a second. Request HC Surrog/Guard Advoc?: Yes Problem Qualifiers (1) Bipolar disorder: Qualified Codes: F31.2 - Bipolar disorder, current episode manic severe with psychotic features Osiel Davis MD Mar 14, 2017 07:19
[2017-03-14] MEDS: REMOVE OLD PATCH T-DERMAL SCH (09:00)
[2017-03-14] MEDS: NICOTINE 21 MG/24 HR PATCH T-DERMAL SCH (09:00)
[2017-03-14] MEDS: METOPROLOL TARTRATE 25 MG TAB PO SCH (09:38)
[2017-03-14] MEDS: amLODIPine BESYLATE 5 MG TAB PO SCH (09:38)
[2017-03-14] MEDS: risperiDONE ODT 1 MG TAB PO SCH (09:39)
[2017-03-14] MEDS: DIVALPROEX SODIUM E.R. 500 MG TAB PO SCH (09:40)
[2017-03-14] MEDS: DOXYCYCLINE HYCLATE 100 MG CAP PO SCH ×2 (09:47→21:26)
[2017-03-14] MEDS: NITROFURANTOIN MONOHYD MACROCR 100 MG CAP PO SCH ×2 (09:47→21:26)
[2017-03-14] MEDS: RIVAROXABAN 15 MG TAB PO SCH ×2 (10:00→21:26)
--- NOTE | 2017-03-14 10:36 | HHI.PR ---
Subjective Remarks Seen in common room patient speech is pressured and very animated. Objective Vital Signs Date Time Temp Pulse Resp B/P (MAP) Pulse Ox O2 Delivery O2 Flow Rate FiO2 03/14/17 05:50 97.3 93 16 94/56 (69) 97 03/13/17 18:18 97.0 98 19 120/63 (82) 98 I/O 03/13/17 03/13/17 03/13/17 03/14/17 03/14/17 03/14/17 07:00 15:00 23:00 07:00 15:00 23:00 Intake Total 480 ml 960 ml 720 ml Balance 480 ml 960 ml 720 ml Intake Oral 480 ml 960 ml 720 ml # Voids 5 1 4 2 Result Diagram: 03/11/17 1036 Objective Remarks GENERAL: Alert, speech pressured SKIN: Warm and dry. HEAD: Normocephalic. EYES: No scleral icterus. No injection or drainage. NECK: Supple, trachea midline. No JVD or lymphadenopathy. CARDIOVASCULAR: Regular rate and rhythm without murmurs, gallops, or rubs. bilateral lower extremity edema 1+ RESPIRATORY: Breath sounds equal bilaterally. No accessory muscle use. GASTROINTESTINAL: Abdomen soft, non-tender, nondistended. MUSCULOSKELETAL: No cyanosis, or edema. BACK: Nontender without obvious deformity. No CVA tenderness. Medications and IVs Current Medications Medications (Trade) Dose Ordered Sig/Valentina Route Start Time Stop Time Status Last Admin (Norvasc) 5 mg DAILY PO 03/11/17 09:00 03/14/17 09:38 (Lopressor) 12.5 mg DAILY PO 03/11/17 09:00 03/14/17 09:38 (Macrobid) 100 mg BID PO 03/10/17 13:30 03/14/17 09:47 (D50w (Vial) Inj) 50 ml UNSCH PRN IV 03/10/17 12:15 (Glucagon Inj) 1 mg UNSCH PRN OTHER 03/10/17 12:15 (NovoLOG SUPPLEMENTAL SCALE) 1 ACHS SLIDING SCALE SQ 03/10/17 16:00 03/13/17 21:00 (Tylenol) 650 mg Q4H PRN PO 03/10/17 12:15 (Milk Of Magnesia Liq) 30 ml DAILY PRN PO 03/10/17 12:15 (Mag-Al Plus Susp Liq) 30 ml Q6H PRN PO 03/10/17 12:15 (Habitrol 21 Mg Patch.24 Hr) 1 patch DAILY T-DERMAL 03/11/17 09:00 Miscellaneous Information 1 DAILY T-DERMAL 03/11/17 09:00 (Xarelto) 15 mg BID PO 03/10/17 21:00 03/14/17 10:00 (Vibramycin) 100 mg BID PO 03/10/17 21:00 03/14/17 09:47 (Ativan) 0.5 mg Q12H PRN PO 03/12/17 13:45 (Ativan Inj) 0.5 mg Q12H PRN IM 03/12/17 13:45 03/14/17 07:13 (Benadryl) 25 mg Q6H PRN PO 03/12/17 13:45 (Benadryl Inj) 25 mg Q6H PRN IM 03/12/17 13:45 03/14/17 07:13 (risperDAL M-TAB) 3 mg HS PO 03/12/17 21:00 03/13/17 21:37 (Depakote Er) 1,000 mg DAILY PO 03/13/17 11:00 03/14/17 09:40 (risperDAL M-TAB) 1 mg DAILY PO 03/14/17 09:00 03/14/17 09:39 Assessment and Plan Problem List: (1) DVT (deep venous thrombosis) ICD Codes: I82.409 - Acute embolism and thrombosis of unspecified deep veins of unspecified lower extremity Status: Acute (2) Non compliance w medication regimen ICD Codes: Z91.14 - Patient's other noncompliance with medication regimen (3) Bipolar disorder ICD Codes: F31.9 - Bipolar disorder, unspecified Status: Acute (4) Cellulitis of lower extremity ICD Codes: L03.119 - Cellulitis of unspecified part of limb (5) Non-insulin dependent type 2 diabetes mellitus ICD Codes: E11.9 - Non-insulin dependent type 2 diabetes mellitus Status: Chronic (6) Hypertension ICD Codes: I10 - Hypertension Status: Acute Assessment and Plan 03/14/17 Bipolar disorder: Continues to be maniac. Speech is pressured and patient overly animated. Psych managing. DVT: Left lower extremity DVT. According to records second DVT last one 03/24. Edema is improved. On Xarelto Diabetes: BS AC and HS. Blood sugars have been mostly under 200mg/dl Will monitor Lower extremity cellulitis: On doxycycline HTN: B/p at 94/56 this AM will make changes if consistent. On metoprolol and norvasc. I and the ARTILLERY SPECIALIST have both examined this patient and reviewed this note and I agree with these findings an plan of care. Abdoulaye Barclay DO Problem Qualifiers (1) Bipolar disorder: Qualified Codes: F31.2 - Bipolar disorder, current episode manic severe with psychotic features Odette Khoury [facility] Mar 14, 2017 10:36
--- NOTE | 2017-03-14 10:38 | PD.TTN ---
Patient Problems 1. Discharge planning 2. Medication compliance 3. Knowledge deficit 4. Lack of coping skills Progress Toward Goals Provider Present: Dr. Paris Davis Provider Input: she is getting meds adjusted with goal of an injection discussed in court to address involuntary program Nurse(s) Input: Kristie: verbally loud and got extra meds today to calm her Psychiatric Counselors Present: Stephanie Davis LCSW Psych Therapist Input: suggested FACT team can do referral even if involuntary program is option pt more likely wants to remain living with daugther Group Spec/RT/OT/CHENG Present: SKYLAR Musa Group Spec/RT/OT/CHENG Input: unable to come inappropriate and loud at this time Documentation Teaching Recipient: Patient Stephanie Davis LCSW Mar 14, 2017 10:38
--- NOTE | 2017-03-14 13:31 | PD.ONC.PN ---
Subjective Subjective Remarks Afebrile overnight. seen in common room. tolerating xarelto without problems. Objective Data Date Time Temp Pulse Resp B/P (MAP) Pulse Ox O2 Delivery O2 Flow Rate FiO2 03/14/17 05:50 97.3 93 16 94/56 (69) 97 03/13/17 18:18 97.0 98 19 120/63 (82) 98 03/14/17 03/14/17 03/14/17 06:59 14:59 22:59 Intake Total 960 ml Balance 960 ml Result Diagram: 03/11/17 1036 Laboratory Results Laboratory Tests Test 03/13/17 19:43 Ammonia 20 MCMOL/L Valproic Acid (Depakene) Level 58 MCG/ML Administered Medications Medications (Trade) Dose Ordered Sig/Valentina Route PRN Reason Start Time Stop Time Status Last Admin Dose Admin Amlodipine Besylate (Norvasc) 5 mg DAILY PO 03/11/17 09:00 03/14/17 09:38 Metoprolol Tartrate (Lopressor) 12.5 mg DAILY PO 03/11/17 09:00 03/14/17 09:38 Nitrofurantoin Macrocrystals (Macrobid) 100 mg BID PO 03/10/17 13:30 03/14/17 09:47 Insulin Aspart (NovoLOG SUPPLEMENTAL SCALE) 1 ACHS SLIDING SCALE SQ 03/10/17 16:00 03/14/17 11:22 Rivaroxaban (Xarelto) 15 mg BID PO 03/10/17 21:00 03/14/17 10:00 Doxycycline Hyclate (Vibramycin) 100 mg BID PO 03/10/17 21:00 03/14/17 09:47 Lorazepam (Ativan Inj) 0.5 mg Q12H PRN IM MODERATE TO SEVERE ANXIETY 03/12/17 13:45 03/14/17 07:13 Diphenhydramine HCl (Benadryl Inj) 25 mg Q6H PRN IM For mild anxiety and/or EPS 03/12/17 13:45 03/14/17 07:13 Risperidone (risperDAL M-TAB) 3 mg HS PO 03/12/17 21:00 03/13/17 21:37 Divalproex Sodium (Depakote Er) 1,000 mg DAILY PO 03/13/17 11:00 03/14/17 09:40 Risperidone (risperDAL M-TAB) 1 mg DAILY PO 03/14/17 09:00 03/14/17 09:39 Objective Remarks GENERAL: Disheveled middle aged female sitting in chair in nad. SKIN: Warm and dry. HEAD: Normocephalic. EYES: No injection or drainage. NECK: Supple, trachea midline. CARDIOVASCULAR: Regular rate and rhythm RESPIRATORY: Breath sounds equal bilaterally. No accessory muscle use. GASTROINTESTINAL: Abdomen soft, non-tender, nondistended. EXTREMITIES: No cyanosis NEUROLOGICAL: awake and alert, normal speech. Assessment/Plan Assessment 66y/o female with recurrent left lower extremity deep vein thromboses. history of bipolar disorder type 1, manic episode with psychosis. 04/08/15: positive occlusive deep vein thromboses of the left peroneal and posterior tibial veins. Subsequent Doppler ultrasound from 04/08/2016 of the left leg was normal. Another ultrasound from 10/05: no DVT 03/08/17: acute occlusive thrombus involving the distal superficial femoral vein , popliteal vein and posterior tibial veins. Plan 1. DVT: patient seems to be doing well with Xarelto. will continue Xarelto 15mg PO BID x 21 days then transition to Xarelto 20mg PO qd. Would recommend discharging home on 20mg daily. 2. hematology will sign off. please call or reconsult if needed. Attending Statement Agree with above. As discussed. Maria Eugenia Rivas Mar 14, 2017 13:31 Tiffany Santos MD Mar 14, 2017 19:11
[2017-03-14 17:00] VITALS: BP 98/55; PULSE 69; RESP 18; TEMP 97.3; O2SAT 97
[2017-03-14] MEDS: risperiDONE ODT 3 MG TAB PO SCH (21:25)
[2017-03-15 06:41] VITALS: BP 127/55; PULSE 102; RESP 18; TEMP 97.9; O2SAT 96
[2017-03-15] MEDS: INSULIN ASPART SUPPLEMENTAL SCALE SQ SCH ×4 (06:44→20:40)
[2017-03-15] MEDS: NITROFURANTOIN MONOHYD MACROCR 100 MG CAP PO SCH ×2 (08:56→20:39)
[2017-03-15] MEDS: DOXYCYCLINE HYCLATE 100 MG CAP PO SCH ×2 (08:56→20:39)
[2017-03-15] MEDS: DIVALPROEX SODIUM E.R. 500 MG TAB PO SCH (08:56)
[2017-03-15] MEDS: RIVAROXABAN 15 MG TAB PO SCH ×2 (08:58→20:39)
[2017-03-15] MEDS: risperiDONE ODT 1 MG TAB PO SCH (08:58)
[2017-03-15] MEDS: amLODIPine BESYLATE 5 MG TAB PO SCH (08:58)
[2017-03-15] MEDS: METOPROLOL TARTRATE 25 MG TAB PO SCH (08:58)
[2017-03-15] MEDS: NICOTINE 21 MG/24 HR PATCH T-DERMAL SCH (08:59)
[2017-03-15] MEDS: REMOVE OLD PATCH T-DERMAL SCH (08:59)
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
[2017-03-15] MEDS: LORazepam 0.5 MG TAB PO PRN (10:18)
[2017-03-15] MEDS: diphenhydrAMINE HCL 25 MG CAP PO PRN (10:18)
--- NOTE | 2017-03-15 10:39 | HHI.PYPN ---
Subjective Remarks Patient seen in day room at request of Dr. Osiel Davis. Dr. Davis has initiated petition for placement in the involuntary outpatient patient treatment program. Dr. Davis has signed first opinion petition supporting that request. Patient seen by me in the day room with nurse Kristie and family practice resident danisha . Patient remains manic delusional intense intrusive and invasive. Showing no insight into her disease. Thus I agree with Dr. Davis patient does meet criteria for involuntary outpatient psychiatric treatment. I will cosign second opinion petition supporting that Review of Systems Except as stated in HPI: all other systems reviewed are Neg Objective Alert: Yes [place]: Person, Place, Date Mood: Other (remains elevated) Affect: Manic, Other (remains expansive) Memory Intact: Comment (not assessed) Hallucinations: Other (no AVH) Delusions: Yes Delusion Type: Grandiose Suicidal: Ideation (no SI) Homicidal: Ideation (no HI) Insight/Judgment Very poor Vitals/IOs Vital Signs Date Time Temp Pulse Resp B/P (MAP) Pulse Ox O2 Delivery O2 Flow Rate FiO2 03/15/17 06:41 97.9 102 18 127/55 (79) 96 Intake and Output 03/15/17 03/15/17 03/16/17 08:00 16:00 00:00 Intake Total 600 ml Output Total 1 ml Balance 599 ml Assessment & Plan Problem List: (1) Bipolar disorder ICD Codes: F31.9 - Bipolar disorder, unspecified Status: Acute (2) Non compliance w medication regimen ICD Codes: Z91.14 - Patient's other noncompliance with medication regimen Assessment & Plan Estimated LOS: days patient remains quite psychotic delusional Justification for Cont. Inpt. At this time patient will decompensate with placed at a lower level of care Discharge Planning To be determined I have cosigned second opinion petition supporting involuntary outpatient treatment program Request HC Surrog/Guard Advoc?: Yes Problem Qualifiers (1) Bipolar disorder: Qualified Codes: F31.2 - Bipolar disorder, current episode manic severe with psychotic features Tim Ca MD Mar 15, 2017 10:39
[2017-03-15 18:00] VITALS: BP 113/55; PULSE 90; RESP 16; TEMP 97.8; O2SAT 96
[2017-03-15] MEDS: risperiDONE ODT 3 MG TAB PO SCH (20:39)
[2017-03-16 05:43] VITALS: BP 117/59; PULSE 104; RESP 16; TEMP 98.2; O2SAT 95
[2017-03-16] MEDS: INSULIN ASPART SUPPLEMENTAL SCALE SQ SCH ×4 (06:43→21:00)
[2017-03-16] MEDS: DIVALPROEX SODIUM E.R. 500 MG TAB PO SCH (09:00)
[2017-03-16] MEDS: NITROFURANTOIN MONOHYD MACROCR 100 MG CAP PO SCH (09:00)
[2017-03-16] MEDS: REMOVE OLD PATCH T-DERMAL SCH (09:00)
[2017-03-16] MEDS: NICOTINE 21 MG/24 HR PATCH T-DERMAL SCH (09:00)
[2017-03-16] MEDS: METOPROLOL TARTRATE 25 MG TAB PO SCH (09:00)
[2017-03-16] MEDS: RIVAROXABAN 15 MG TAB PO SCH ×2 (09:00→20:13)
[2017-03-16] MEDS: amLODIPine BESYLATE 5 MG TAB PO SCH (09:00)
[2017-03-16] MEDS: DOXYCYCLINE HYCLATE 100 MG CAP PO SCH ×2 (09:00→20:13)
--- NOTE | 2017-03-16 11:09 | HHI.PR ---
Subjective Remarks Seen in common room. Reports that she has to go to court today. Objective Vital Signs Date Time Temp Pulse Resp B/P (MAP) Pulse Ox O2 Delivery O2 Flow Rate FiO2 03/16/17 05:43 98.2 104 16 117/59 (78) 95 03/15/17 18:00 97.8 90 16 113/55 (74) 96 I/O 03/15/17 03/15/17 03/15/17 03/16/17 03/16/17 03/16/17 07:00 15:00 23:00 07:00 15:00 23:00 Intake Total 960 ml 240 ml 480 ml 120 ml Output Total 1 ml Balance 959 ml 240 ml 480 ml 120 ml Intake Oral 960 ml 240 ml 480 ml 120 ml Output Urine Total 1 ml # Voids 3 2 2 # Bowel Movements 0 0 0 Objective Remarks GENERAL: Alert, speech pressured SKIN: Warm and dry. HEAD: Normocephalic. EYES: No scleral icterus. No injection or drainage. NECK: Supple, trachea midline. No JVD or lymphadenopathy. CARDIOVASCULAR: Regular rate and rhythm without murmurs, gallops, or rubs. bilateral lower extremity edema 1+ RESPIRATORY: Breath sounds equal bilaterally. No accessory muscle use. GASTROINTESTINAL: Abdomen soft, non-tender, nondistended. MUSCULOSKELETAL: No cyanosis, or edema. BACK: Nontender without obvious deformity. No CVA tenderness. Medications and IVs Current Medications Medications (Trade) Dose Ordered Sig/Valentina Route Start Time Stop Time Status Last Admin (Norvasc) 5 mg DAILY PO 03/11/17 09:00 03/16/17 09:00 (Lopressor) 12.5 mg DAILY PO 03/11/17 09:00 03/16/17 09:00 (Macrobid) 100 mg BID PO 03/10/17 13:30 03/16/17 09:00 (D50w (Vial) Inj) 50 ml UNSCH PRN IV 03/10/17 12:15 (Glucagon Inj) 1 mg UNSCH PRN OTHER 03/10/17 12:15 (NovoLOG SUPPLEMENTAL SCALE) 1 ACHS SLIDING SCALE SQ 03/10/17 16:00 03/14/17 21:27 (Tylenol) 650 mg Q4H PRN PO 03/10/17 12:15 (Milk Of Magnesia Liq) 30 ml DAILY PRN PO 03/10/17 12:15 (Mag-Al Plus Susp Liq) 30 ml Q6H PRN PO 03/10/17 12:15 (Habitrol 21 Mg Patch.24 Hr) 1 patch DAILY T-DERMAL 03/11/17 09:00 Miscellaneous Information 1 DAILY T-DERMAL 03/11/17 09:00 (Xarelto) 15 mg BID PO 03/10/17 21:00 03/31/17 20:59 03/16/17 09:00 (Vibramycin) 100 mg BID PO 03/10/17 21:00 03/16/17 09:00 (Ativan) 0.5 mg Q12H PRN PO 03/12/17 13:45 03/15/17 10:18 (Ativan Inj) 0.5 mg Q12H PRN IM 03/12/17 13:45 03/14/17 07:13 (Benadryl) 25 mg Q6H PRN PO 03/12/17 13:45 03/15/17 10:18 (Benadryl Inj) 25 mg Q6H PRN IM 03/12/17 13:45 03/14/17 07:13 (risperDAL M-TAB) 3 mg HS PO 03/12/17 21:00 03/15/17 20:39 (Depakote Er) 1,000 mg DAILY PO 03/13/17 11:00 03/16/17 09:00 (Xarelto) 20 mg DAILY PO 04/01/17 09:00 (risperDAL M-TAB) 1.5 mg DAILY PO 03/16/17 09:00 03/16/17 09:00 Assessment and Plan Problem List: (1) DVT (deep venous thrombosis) ICD Codes: I82.409 - Acute embolism and thrombosis of unspecified deep veins of unspecified lower extremity Status: Acute (2) Non compliance w medication regimen ICD Codes: Z91.14 - Patient's other noncompliance with medication regimen (3) Bipolar disorder ICD Codes: F31.9 - Bipolar disorder, unspecified Status: Acute (4) Cellulitis of lower extremity ICD Codes: L03.119 - Cellulitis of unspecified part of limb (5) Non-insulin dependent type 2 diabetes mellitus ICD Codes: E11.9 - Non-insulin dependent type 2 diabetes mellitus Status: Chronic (6) Hypertension ICD Codes: I10 - Hypertension Status: Acute Assessment and Plan 03/14/17 Bipolar disorder: Continues to be maniac. Speech is pressured and patient overly animated. Psych managing. DVT: Left lower extremity DVT. According to records second DVT last one 03/24. Edema is improved. On Xarelto Diabetes: BS AC and HS. Blood sugars have been mostly under 200mg/dl Will monitor Lower extremity cellulitis: On doxycycline HTN: B/p at 94/56 this AM will make changes if consistent. On metoprolol and norvasc. 03/16/17 Bipolar disorder: Continues to be maniac. Speech is less pressured. Psych managing. DVT: Left lower extremity DVT. According to records second DVT last one 03/24. Edema is improved. On Xarelto Diabetes: BS AC and HS. Blood sugars well controlled. Will monitor Lower extremity cellulitis: On doxycycline stop date on Monday HTN: B/p at 117/59 this AM. On metoprolol and norvasc. I and the OPERATIONAL TEST MECHANIC have both examined this patient and reviewed this note and I agree with these findings an plan of care. Abdoulaye Barclay DO Problem Qualifiers (1) Bipolar disorder: Qualified Codes: F31.2 - Bipolar disorder, current episode manic severe with psychotic features Odette Khoury OPERATIONAL TEST MECHANIC Mar 16, 2017 11:09
--- NOTE | 2017-03-16 11:27 | HHI.PYPN ---
Subjective Remarks Patient seen and case discussed with nursing staff. Chart reviewed. For me today, patient more organized. Less hyperverbal and rambling. Remains intrusive and impulsive. Some ongoing loosening of associations. No side effects from meds. No physical complaints. Review of Systems ROS Limitations: Psychotic, Poor Historian Except as stated in HPI: all other systems reviewed are Neg Objective Alert: Yes [place]: Person, Place, Date Mood: Other (again calmer) Affect: Other (trending towards normal range) Memory Intact: Comment (not assessed) Hallucinations: Other (No AVH) Delusions: Yes Delusion Type: Grandiose (?lessening) Suicidal: Ideation (no SI) Homicidal: Ideation (no HI) Insight/Judgment Poor Remarks No motoric abnormalities noted. Grooming and hygiene fair at best. Thought process with less loosening of associations. Labs Labs reviewed. Vitals/IOs Vital Signs Date Time Temp Pulse Resp B/P (MAP) Pulse Ox O2 Delivery O2 Flow Rate FiO2 03/16/17 05:43 98.2 104 16 117/59 (78) 95 Intake and Output 03/16/17 03/16/17 03/17/17 08:00 16:00 00:00 Intake Total 120 ml Balance 120 ml Assessment & Plan Problem List: (1) Bipolar disorder ICD Codes: F31.9 - Bipolar disorder, unspecified Status: Acute (2) Non compliance w medication regimen ICD Codes: Z91.14 - Patient's other noncompliance with medication regimen Assessment & Plan Patient continues to improve with current regimen. I will initiate Risperdal Consta 25 mg every 2 weeks and continue oral Risperdal as recommended. I did investigate appropriate dosing given patient's GFR, and you can start with the 25mg dose with patient's GFR. Continue Depakote as ordered. Follow-up laboratories ordered for tomorrow morning. Patient's case was presented to the [place] [facility] and placing continuance for 4 weeks. Justification for Cont. Inpt. Medication changes. High risk for decompensation in less restrictive environment. Discharge Planning Pending psychiatric stabilization. Request HC Surrog/Guard Advoc?: Yes Problem Qualifiers (1) Bipolar disorder: Qualified Codes: F31.2 - Bipolar disorder, current episode manic severe with psychotic features Osiel Davis MD Mar 16, 2017 11:27
[2017-03-16] MEDS ORDERED: risperiDONE EXT REL INJ 25 MG/2 ML VIAL IM ONE (11:30)
[2017-03-16] MEDS: diphenhydrAMINE HCL 25 MG CAP PO PRN ×2 (14:29→22:20)
[2017-03-16 17:57] VITALS: BP 130/64; PULSE 91; RESP 18; TEMP 98.6; O2SAT 98
[2017-03-16] MEDS: LORazepam 0.5 MG TAB PO PRN (20:13)
[2017-03-16] MEDS: risperiDONE ODT 3 MG TAB PO SCH (20:13)
[2017-03-17 05:49] VITALS: BP 112/64; PULSE 91; RESP 17; TEMP 97.7; O2SAT 94
[2017-03-17] MEDS: INSULIN ASPART SUPPLEMENTAL SCALE SQ SCH ×4 (07:00→21:00)
--- NOTE | 2017-03-17 08:00 | HHI.PYPN ---
Subjective Remarks Patient seen and examined. Chart reviewed. Case discussed with nursing staff. Patient received Risperdal Consta yesterday without incident. She was noted to have episodes of calling out yesterday but calmed after receiving Ativan and Benadryl. On my examination today, the patient is sitting calmly in the day area. She is more relevant and coherent in conversation. Mood more stable. She denies AVH. Denies side effects from medications. No physical complaints. She would like to clip her nails and use tweezers for grooming. Review of Systems ROS Limitations: Poor Historian Except as stated in HPI: all other systems reviewed are Neg Objective Alert: Yes [place]: Person, Place, Date Mood: Calm, Other (stabilizing) Affect: Other (fairly appropriate today) Memory Intact: Comment (not assessed) Hallucinations: Other (denies AVH) Delusions: No Delusion Type: Other (no delusions elicited today) Suicidal: Ideation (No SI) Homicidal: Ideation (No HI) Insight/Judgment Poor Remarks No motoric abnormalities noted. Thought process more linear. Labs Labs reviewed: CBC - anemia stable CMP - pending Ammonia level mildly elevated but patient has no signs of hyperammonemic encephalopathy. Depakote level pending Vitals/IOs Vital Signs Date Time Temp Pulse Resp B/P (MAP) Pulse Ox O2 Delivery O2 Flow Rate FiO2 03/17/17 05:49 97.7 91 17 112/64 (80) 94 Intake and Output 03/17/17 03/17/17 03/18/17 08:00 16:00 00:00 Intake Total 0 ml Balance 0 ml Assessment & Plan Problem List: (1) Bipolar disorder ICD Codes: F31.9 - Bipolar disorder, unspecified Status: Acute (2) Non compliance w medication regimen ICD Codes: Z91.14 - Patient's other noncompliance with medication regimen Assessment & Plan Continue oral Risperdal supplementing Consta. Patient is improving but requires additional time with antipsychotic therapy to stabilize enough for safe discharge. Continue Depakote as ordered. Follow-up outstanding laboratories. Patient may pursue hygiene tasks as requested with staff supervision. Continue other medications and care as ordered. Justification for Cont. Inpt. High risk for decompensation in less restrictive environment. Discharge Planning Pending psychiatric stabilization. A petition for involuntary outpatient commitment has been initiated. Request HC Surrog/Guard Advoc?: Yes Problem Qualifiers (1) Bipolar disorder: Qualified Codes: F31.2 - Bipolar disorder, current episode manic severe with psychotic features Osiel Davis MD Mar 17, 2017 08:00
[2017-03-17] MEDS: NICOTINE 21 MG/24 HR PATCH T-DERMAL SCH (09:00)
[2017-03-17] MEDS: REMOVE OLD PATCH T-DERMAL SCH (09:00)
[2017-03-17] MEDS: amLODIPine BESYLATE 5 MG TAB PO SCH (09:46)
[2017-03-17] MEDS: RIVAROXABAN 15 MG TAB PO SCH ×2 (09:46→21:09)
[2017-03-17] MEDS: DOXYCYCLINE HYCLATE 100 MG CAP PO SCH ×2 (09:46→21:09)
[2017-03-17] MEDS: METOPROLOL TARTRATE 25 MG TAB PO SCH (09:46)
[2017-03-17] MEDS: DIVALPROEX SODIUM E.R. 500 MG TAB PO SCH (09:47)
[2017-03-17 11:09] LABS: AUTOMATED NEUTROPHIL # 2.2 TH/MM3 (1.8-7.7); BASOPHIL % 0.9 % (0.0-2.0); EOSINOPHIL % 1.1 % (0.0-4.0); HEMATOCRIT 33.8 % (35.0-46.0); HEMO FLAGS DIFF FINAL; LYMPHOCYTE # 0.8 TH/MM3 (1.0-4.8); MEAN CELL VOLUME 86.1 FL (80.0-100.0); MEAN CORPUSCULAR HEMOGLOBIN 27.8 PG (27.0-34.0); MEAN CORPUSCULAR HGB CONC 32.3 % (32.0-36.0); MONO % 11.7 % (0.0-8.0); NEUT % 62.3 % (16.0-70.0); PLATELET COUNT 263 TH/MM3 (150-450); RED BLOOD COUNT 3.92 MIL/MM3 (4.00-5.30); RED CELL DISTRIBUTION WIDTH 14.3 % (11.6-17.2); WHITE BLOOD COUNT 3.5 TH/MM3 (4.0-11.0)
[2017-03-17] MEDS: LORazepam 0.5 MG TAB PO PRN (11:15)
[2017-03-17 11:33] LABS: ANION GAP 7 MEQ/L (5-15); AST (GOT) 14 U/L (15-37); BICARBONATE 27.5 MEQ/L (21.0-32.0); BLOOD UREA NITROGEN 25 MG/DL (7-18); CHLORIDE 105 MEQ/L (98-107); GLOMERULAR FILTRATION RATE 48 ML/MIN (>89); POTASSIUM 4.1 MEQ/L (3.5-5.1); SODIUM (NA) 139 MEQ/L (136-145)
[2017-03-17 11:35] LABS: ALKALINE PHOSPHATASE 66 U/L (45-117); ALT (GPT) 15 U/L (10-53); TOTAL BILIRUBIN ADULT 0.4 MG/DL (0.2-1.0)
[2017-03-17 18:05] VITALS: BP 108/56; PULSE 16; RESP 16; TEMP 97.6; O2SAT 97
[2017-03-17] MEDS: risperiDONE ODT 3 MG TAB PO SCH (21:09)
[2017-03-18] MEDS: LORazepam 0.5 MG TAB PO PRN (04:30)
[2017-03-18] MEDS: diphenhydrAMINE HCL 25 MG CAP PO PRN (04:30)
[2017-03-18] MEDS: INSULIN ASPART SUPPLEMENTAL SCALE SQ SCH ×4 (07:00→21:00)
[2017-03-18 07:02] VITALS: BP 110/78; PULSE 76; RESP 15; TEMP 97.7; O2SAT 95
[2017-03-18] MEDS: REMOVE OLD PATCH T-DERMAL SCH (09:00)
[2017-03-18] MEDS: NICOTINE 21 MG/24 HR PATCH T-DERMAL SCH (09:00)
[2017-03-18] MEDS: DOXYCYCLINE HYCLATE 100 MG CAP PO SCH ×2 (09:44→22:02)
[2017-03-18] MEDS: RIVAROXABAN 15 MG TAB PO SCH ×2 (09:45→22:02)
[2017-03-18] MEDS: DIVALPROEX SODIUM E.R. 500 MG TAB PO SCH (09:45)
[2017-03-18] MEDS: METOPROLOL TARTRATE 25 MG TAB PO SCH (09:47)
[2017-03-18] MEDS: amLODIPine BESYLATE 5 MG TAB PO SCH (09:48)
--- NOTE | 2017-03-18 11:19 | HHI.PYPN ---
Subjective Remarks Patient interviewed, discuss case with psychiatry tech and reviewed patient's labs. She remains easily agitated and most often nonsensical. Review of Systems Except as stated in HPI: all other systems reviewed are Neg Objective Alert: Yes [place]: Person, Place, Date Mood: Agitated, Other (stabilizing) Affect: Labile, Other (fairly appropriate today) Memory Intact: Comment (not assessed) Hallucinations: Other (denies AVH) Delusions: No Delusion Type: Other (no delusions elicited today) Suicidal: Ideation (No SI) Homicidal: Ideation (No HI) Insight/Judgment Impaired Vitals/IOs Vital Signs Date Time Temp Pulse Resp B/P (MAP) Pulse Ox O2 Delivery O2 Flow Rate FiO2 03/18/17 07:02 97.7 76 15 110/78 (89) 95 Assessment & Plan Problem List: (1) Bipolar disorder ICD Codes: F31.9 - Bipolar disorder, unspecified Status: Acute (2) Non compliance w medication regimen ICD Codes: Z91.14 - Patient's other noncompliance with medication regimen Assessment & Plan Estimated LOS: days Justification for Cont. Inpt. Unable to care for self. Request HC Surrog/Guard Advoc?: Yes Problem Qualifiers (1) Bipolar disorder: Qualified Codes: F31.2 - Bipolar disorder, current episode manic severe with psychotic features Juaquin Poe MD Mar 18, 2017 11:19
[2017-03-18 18:17] VITALS: BP 123/58; PULSE 81; RESP 18; TEMP 97.6; O2SAT 98
[2017-03-18] MEDS: risperiDONE ODT 3 MG TAB PO SCH (22:02)
[2017-03-19] MEDS: INSULIN ASPART SUPPLEMENTAL SCALE SQ SCH ×4 (06:13→20:24)
[2017-03-19 06:43] VITALS: BP 129/67; PULSE 100; RESP 17; TEMP 97.9; O2SAT 98
[2017-03-19] MEDS: REMOVE OLD PATCH T-DERMAL SCH (09:00)
[2017-03-19] MEDS: NICOTINE 21 MG/24 HR PATCH T-DERMAL SCH (09:00)
[2017-03-19] MEDS: METOPROLOL TARTRATE 25 MG TAB PO SCH (09:00)
[2017-03-19] MEDS: RIVAROXABAN 15 MG TAB PO SCH ×2 (10:11→21:05)
[2017-03-19] MEDS: DOXYCYCLINE HYCLATE 100 MG CAP PO SCH ×2 (10:12→21:05)
[2017-03-19] MEDS: DIVALPROEX SODIUM E.R. 500 MG TAB PO SCH (10:12)
[2017-03-19] MEDS: amLODIPine BESYLATE 5 MG TAB PO SCH (10:12)
--- NOTE | 2017-03-19 11:03 | HHI.PYPN ---
Subjective Remarks Patient seen and examined. Chart reviewed. Case discussed with nursing staff. No behavioral issues overnight. On my examination today, patient's mood seems to be stabilizing nicely although the patient continues to display loose associations. She says, "I'm mixed up. My mind can't see me." Denies side effects from medications. No physical complaints. Review of Systems ROS Limitations: Poor Historian Except as stated in HPI: all other systems reviewed are Neg Objective Alert: Yes [place]: Person, Place, Date Mood: Calm Affect: Blunted Memory Intact: Comment (not formally assessed) Hallucinations: Other (no AVH) Delusions: No Delusion Type: Other (no delusions) Suicidal: Ideation (No SI) Homicidal: Ideation (No HI) Insight/Judgment Poor Remarks Some loosening of associations. No motor abnormalities noted. Labs Labs reviewed. Vitals/IOs Vital Signs Date Time Temp Pulse Resp B/P (MAP) Pulse Ox O2 Delivery O2 Flow Rate FiO2 03/19/17 06:43 97.9 100 17 129/67 (87) 98 Assessment & Plan Problem List: (1) Bipolar disorder ICD Codes: F31.9 - Bipolar disorder, unspecified Status: Acute (2) Non compliance w medication regimen ICD Codes: Z91.14 - Patient's other noncompliance with medication regimen Assessment & Plan Titrate Risperdal to 2/3 mg for further mood stabilization. Continue Depakote as ordered. Check an updated ammonia level in the morning. No signs of hyperammonemic encephalopathy. Continue other medications and care as ordered. Justification for Cont. Inpt. Med changes. Risk for decompensation in a less restrictive environment. Discharge Planning Pending psychiatric stabilization. Request HC Surrog/Guard Advoc?: Yes Problem Qualifiers (1) Bipolar disorder: Qualified Codes: F31.2 - Bipolar disorder, current episode manic severe with psychotic features Osiel Davis MD Mar 19, 2017 11:02
[2017-03-19 16:18] VITALS: BP 120/68; PULSE 98; RESP 18; TEMP 98.2; O2SAT 96
[2017-03-19] MEDS: risperiDONE ODT 3 MG TAB PO SCH (21:05)
[2017-03-20 06:00] VITALS: BP 128/68; PULSE 110; RESP 18; TEMP 98; O2SAT 95
[2017-03-20] MEDS: INSULIN ASPART SUPPLEMENTAL SCALE SQ SCH ×4 (06:05→20:58)
--- NOTE | 2017-03-20 07:05 | HHI.PYPN ---
Subjective Remarks Patient seen and examined. Chart reviewed. Case d/w RN: Slept 2hrs overnight. No real behavioral issue. On my examination today, patient continues to display some loosening of associations. When I ask if she has slept overnight she says that she is "sleepless in [place]. Do I have to move to [place] to get any sleep?" Denies side effects from medications. No physical complaints. Review of Systems ROS Limitations: Poor Historian Except as stated in HPI: all other systems reviewed are Neg Objective Alert: Yes [place]: Person, Place, Date Mood: Calm Affect: Blunted Memory Intact: Comment (not formally assessed) Hallucinations: Other (none) Delusions: No Delusion Type: Other (no delusions) Suicidal: Ideation (No SI) Homicidal: Ideation (No HI) Insight/Judgment Poor Remarks No motor abnormalities Labs Labs reviewed. Ammonia level pending. Vitals/IOs Vital Signs Date Time Temp Pulse Resp B/P (MAP) Pulse Ox O2 Delivery O2 Flow Rate FiO2 03/20/17 06:00 98.0 110 18 128/68 (88) 95 Assessment & Plan Problem List: (1) Bipolar disorder ICD Codes: F31.9 - Bipolar disorder, unspecified Status: Acute (2) Non compliance w medication regimen ICD Codes: Z91.14 - Patient's other noncompliance with medication regimen Assessment & Plan Continue current psychotropics as ordered. Follow-up ammonia level. Continue to monitor on the inpatient unit. Continue other medications and care as ordered. Justification for Cont. Inpt. Risk for decompensation in less restrictive environment Discharge Planning Pending stabilization Request HC Surrog/Guard Advoc?: Yes Problem Qualifiers (1) Bipolar disorder: Qualified Codes: F31.2 - Bipolar disorder, current episode manic severe with psychotic features Osiel Davis MD Mar 20, 2017 07:05
[2017-03-20] MEDS: REMOVE OLD PATCH T-DERMAL SCH (09:00)
[2017-03-20] MEDS: NICOTINE 21 MG/24 HR PATCH T-DERMAL SCH (09:00)
[2017-03-20] MEDS: risperiDONE ODT 1 MG TAB PO SCH (09:31)
[2017-03-20] MEDS: METOPROLOL TARTRATE 25 MG TAB PO SCH (09:31)
[2017-03-20] MEDS: amLODIPine BESYLATE 5 MG TAB PO SCH (09:32)
[2017-03-20] MEDS: RIVAROXABAN 15 MG TAB PO SCH ×2 (09:32→20:52)
[2017-03-20] MEDS: DOXYCYCLINE HYCLATE 100 MG CAP PO SCH (09:32)
[2017-03-20] MEDS: DIVALPROEX SODIUM E.R. 500 MG TAB PO SCH (09:32)
[2017-03-20] MEDS: risperiDONE ODT 3 MG TAB PO SCH (20:52)
[2017-03-20] MEDS: LORazepam 0.5 MG TAB PO PRN (20:52)
[2017-03-21 06:00] VITALS: BP 111/74; PULSE 115; RESP 16; TEMP 97.6; O2SAT 97
[2017-03-21] MEDS: INSULIN ASPART SUPPLEMENTAL SCALE SQ SCH ×4 (06:53→21:00)
--- NOTE | 2017-03-21 07:33 | HHI.PYPN ---
Subjective Remarks Patient seen and examined. Chart reviewed. Case discussed in treatment team. Continues to have periodic manic outbursts per nursing counselor. On my examination today, the patient is fairly calm, although her associations remain a little bit loose. She does say that she slept fairly well overnight. We discussed possibility of assisted living placement, and she says the only facility that she might consider is called [facility], and this is because it is located next to her house where her daughter resides. Denies side effects from medications. No physical complaints. Review of Systems ROS Limitations: Poor Historian Except as stated in HPI: all other systems reviewed are Neg Objective Alert: Yes [place]: Person, Place, Date Mood: Calm Affect: Euthymic Memory Intact: Comment (not formally assessed) Hallucinations: Other (no AVH) Delusions: No Delusion Type: Other (no delusions at this time) Suicidal: Ideation (No SI) Homicidal: Ideation (No HI) Insight/Judgment poor Remarks No motor abnormalities noted Labs Test 03/20/17 10:22 Ammonia 11 MCMOL/L Labs reviewed. Repeat ammonia level within normal limits. Vitals/IOs Vital Signs Date Time Temp Pulse Resp B/P (MAP) Pulse Ox O2 Delivery O2 Flow Rate FiO2 03/21/17 06:00 97.6 115 16 111/74 (86) 97 Assessment & Plan Problem List: (1) Bipolar disorder ICD Codes: F31.9 - Bipolar disorder, unspecified Status: Acute (2) Non compliance w medication regimen ICD Codes: Z91.14 - Patient's other noncompliance with medication regimen Assessment & Plan Titrate Depakote to 1250 mg daily for additional mood stabilization. Plan to check a follow-up Depakote level at the end of the week. Continue oral Risperdal supplementing Risperdal Consta. Next dose of Consta due 03/30. Continue to monitor on the inpatient unit. Continue other medications and care as ordered. Justification for Cont. Inpt. Med changes. Risk for decompensation and less restrictive environment. Discharge Planning Possible [facility] placement, although counselor reports that patient has historically been resistant to this when she stabilizes because patient and her daughter are both disabled and rely on joint income to afford housing, etc. Counselor will initiate a FACT team referral. Request HC Surrog/Guard Advoc?: Yes Problem Qualifiers (1) Bipolar disorder: Qualified Codes: F31.2 - Bipolar disorder, current episode manic severe with psychotic features Osiel Davis MD Mar 21, 2017 07:33
--- NOTE | 2017-03-21 08:13 | HHI.PR ---
Subjective Remarks Seen in common room. Denies any CP or SOB. Reports that she needs PT Objective Vital Signs Date Time Temp Pulse Resp B/P (MAP) Pulse Ox O2 Delivery O2 Flow Rate FiO2 03/21/17 06:00 97.6 115 16 111/74 (86) 97 I/O 03/20/17 03/20/17 03/20/17 03/21/17 03/21/17 03/21/17 07:00 15:00 23:00 07:00 15:00 23:00 Intake Total 360 ml 560 ml Balance 360 ml 560 ml Intake Oral 360 ml 560 ml # Voids 2 0 2 Result Diagram: 03/17/17 1051 03/17/17 1051 Objective Remarks GENERAL: Alert, speech pressured SKIN: Warm and dry. HEAD: Normocephalic. EYES: No scleral icterus. No injection or drainage. NECK: Supple, trachea midline. No JVD or lymphadenopathy. CARDIOVASCULAR: Regular rate and rhythm without murmurs, gallops, or rubs. bilateral lower extremity edema 1+ RESPIRATORY: Breath sounds equal bilaterally. No accessory muscle use. GASTROINTESTINAL: Abdomen soft, non-tender, nondistended. MUSCULOSKELETAL: No cyanosis, or edema. BACK: Nontender without obvious deformity. No CVA tenderness. Medications and IVs Current Medications Medications (Trade) Dose Ordered Sig/Valentina Route Start Time Stop Time Status Last Admin (Norvasc) 5 mg DAILY PO 03/11/17 09:00 03/20/17 09:32 (Lopressor) 12.5 mg DAILY PO 03/11/17 09:00 03/20/17 09:31 (D50w (Vial) Inj) 50 ml UNSCH PRN IV 03/10/17 12:15 (Glucagon Inj) 1 mg UNSCH PRN OTHER 03/10/17 12:15 (NovoLOG SUPPLEMENTAL SCALE) 1 ACHS SLIDING SCALE SQ 03/10/17 16:00 03/20/17 11:00 (Tylenol) 650 mg Q4H PRN PO 03/10/17 12:15 (Milk Of Magnesia Liq) 30 ml DAILY PRN PO 03/10/17 12:15 (Mag-Al Plus Susp Liq) 30 ml Q6H PRN PO 03/10/17 12:15 (Habitrol 21 Mg Patch.24 Hr) 1 patch DAILY T-DERMAL 03/11/17 09:00 Miscellaneous Information 1 DAILY T-DERMAL 03/11/17 09:00 (Xarelto) 15 mg BID PO 03/10/17 21:00 03/31/17 20:59 03/20/17 20:52 (Ativan) 0.5 mg Q12H PRN PO 03/12/17 13:45 03/20/17 20:52 (Ativan Inj) 0.5 mg Q12H PRN IM 03/12/17 13:45 03/14/17 07:13 (Benadryl) 25 mg Q6H PRN PO 03/12/17 13:45 03/18/17 04:30 (Benadryl Inj) 25 mg Q6H PRN IM 03/12/17 13:45 03/14/17 07:13 (risperDAL M-TAB) 3 mg HS PO 03/12/17 21:00 03/20/17 20:52 (Depakote Er) 1,000 mg DAILY PO 03/13/17 11:00 03/20/17 09:32 (Xarelto) 20 mg DAILY PO 04/01/17 09:00 (risperDAL M-TAB) 2 mg DAILY PO 03/20/17 09:00 03/20/17 09:31 Assessment and Plan Problem List: (1) DVT (deep venous thrombosis) ICD Codes: I82.409 - Acute embolism and thrombosis of unspecified deep veins of unspecified lower extremity Status: Acute (2) Non compliance w medication regimen ICD Codes: Z91.14 - Patient's other noncompliance with medication regimen (3) Bipolar disorder ICD Codes: F31.9 - Bipolar disorder, unspecified Status: Acute (4) Cellulitis of lower extremity ICD Codes: L03.119 - Cellulitis of unspecified part of limb (5) Non-insulin dependent type 2 diabetes mellitus ICD Codes: E11.9 - Non-insulin dependent type 2 diabetes mellitus Status: Chronic (6) Hypertension ICD Codes: I10 - Hypertension Status: Acute Assessment and Plan 03/14/17 Bipolar disorder: Continues to be maniac. Speech is pressured and patient overly animated. Psych managing. DVT: Left lower extremity DVT. According to records second DVT last one 03/24. Edema is improved. On Xarelto Diabetes: BS AC and HS. Blood sugars have been mostly under 200mg/dl Will monitor Lower extremity cellulitis: On doxycycline HTN: B/p at 94/56 this AM will make changes if consistent. On metoprolol and norvasc. 03/16/17 Bipolar disorder: Continues to be maniac. Speech is less pressured. Psych managing. DVT: Left lower extremity DVT. According to records second DVT last one 03/24. Edema is improved. On Xarelto Diabetes: BS AC and HS. Blood sugars well controlled. Will monitor Lower extremity cellulitis: On doxycycline stop date on Monday HTN: B/p at 117/59 this AM. On metoprolol and norvasc. 03/21/17 Bipolar disorder: Speech is less pressured and easy to follow. Psych managing. DVT: Left lower extremity DVT. According to records second DVT last one 03/24. Edema is improved. On Xarelto Diabetes: BS AC and HS. Blood sugars well controlled all less than 200 overnight. Will monitor Lower extremity cellulitis: resolved and antibiotics complete HTN: B/p at 111/74 this AM. On metoprolol and norvasc. Will increase metoprolol to BID with heart rate in the 110-115. I and the HEEL PACKER have both examined this patient and reviewed this note and I agree with these findings an plan of care. Abdoulaye Barclay DO Problem Qualifiers (1) Bipolar disorder: Qualified Codes: F31.2 - Bipolar disorder, current episode manic severe with psychotic features Odette Khoury HEEL PACKER Mar 21, 2017 08:13
[2017-03-21] MEDS: REMOVE OLD PATCH T-DERMAL SCH (09:00)
[2017-03-21] MEDS ORDERED: PILL SPLITTER OTHER PRN (09:00)
[2017-03-21] MEDS: amLODIPine BESYLATE 5 MG TAB PO SCH (10:23)
[2017-03-21] MEDS: RIVAROXABAN 15 MG TAB PO SCH ×2 (10:23→21:27)
[2017-03-21] MEDS: risperiDONE ODT 1 MG TAB PO SCH (10:23)
[2017-03-21] MEDS: DIVALPROEX SODIUM E.R. 500 MG TAB PO SCH (10:23)
[2017-03-21] MEDS: METOPROLOL TARTRATE 25 MG TAB PO SCH ×2 (10:24→21:26)
[2017-03-21] MEDS ORDERED: DIVALPROEX SODIUM E.R. 250 MG TAB PO ONE (11:15)
[2017-03-21 17:53] VITALS: BP 128/68; PULSE 98; RESP 18; TEMP 98.2; O2SAT 99
[2017-03-21] MEDS: risperiDONE ODT 3 MG TAB PO SCH (21:26)
[2017-03-21] MEDS: diphenhydrAMINE HCL 25 MG CAP PO PRN (21:26)
[2017-03-22] MEDS: INSULIN ASPART SUPPLEMENTAL SCALE SQ SCH ×5 (06:02→21:00)
[2017-03-22 06:22] VITALS: BP 116/59; PULSE 86; RESP 16; TEMP 98.1; O2SAT 95
--- NOTE | 2017-03-22 07:21 | HHI.PYPN ---
Subjective Remarks Patient seen and examined. Chart reviewed. Case discussed with nursing staff. Per nursing staff, the patient had a good night last night. On my examination today, the patient's mood seems fairly stable and good. She remains a little bit disinhibited, but this too is improved. She leans in conspiratorially and says with a smile, "I got to go home in the middle of the night [last night] and came back." No evidence that this actually transpired. No SI or HI. Slept well last night. Denies side effects from medications. No physical complaints. Review of Systems ROS Limitations: Poor Historian Except as stated in HPI: all other systems reviewed are Neg Objective Alert: Yes [place]: Person, Place, Date Mood: Calm Affect: Euthymic Memory Intact: Comment (not assessed) Hallucinations: Other (No AVH) Delusions: No Delusion Type: Other (No delusions) Suicidal: Ideation (No suicidal ideation) Homicidal: Ideation (No homicidal ideation) Insight/Judgment Poor Remarks No motor abnormalities noted Labs Labs reviewed Vitals/IOs Vital Signs Date Time Temp Pulse Resp B/P (MAP) Pulse Ox O2 Delivery O2 Flow Rate FiO2 03/22/17 06:22 98.1 86 16 116/59 (78) 95 Intake and Output 03/22/17 03/22/17 03/23/17 08:00 16:00 00:00 Intake Total 0 ml Balance 0 ml Assessment & Plan Problem List: (1) Bipolar disorder ICD Codes: F31.9 - Bipolar disorder, unspecified Status: Acute (2) Non compliance w medication regimen ICD Codes: Z91.14 - Patient's other noncompliance with medication regimen Assessment & Plan Continue Depakote as ordered. Plan to check a Depakote level later in the week. Continue Risperdal as ordered; to consider further titration of this medication to target residual symptoms. Hospitalist input noted and appreciated. Continue to monitor on the inpatient unit. Continue other medications and care as ordered. Justification for Cont. Inpt. Risk for decompensation Discharge Planning Pending psychiatric stabilization. Possible discharge sometime next week. Request HC Surrog/Guard Advoc?: Yes Problem Qualifiers (1) Bipolar disorder: Qualified Codes: F31.2 - Bipolar disorder, current episode manic severe with psychotic features Osiel Davis MD Mar 22, 2017 07:21
[2017-03-22] MEDS: DIVALPROEX SODIUM E.R. 250 MG TAB PO SCH (08:53)
[2017-03-22] MEDS: METOPROLOL TARTRATE 25 MG TAB PO SCH ×2 (08:54→21:16)
[2017-03-22] MEDS: risperiDONE ODT 1 MG TAB PO SCH (08:55)
[2017-03-22] MEDS: amLODIPine BESYLATE 5 MG TAB PO SCH (08:55)
[2017-03-22] MEDS: RIVAROXABAN 15 MG TAB PO SCH ×2 (08:56→21:16)
[2017-03-22] MEDS: REMOVE OLD PATCH T-DERMAL SCH (09:00)
[2017-03-22 17:34] VITALS: BP 113/60; PULSE 71; RESP 17; TEMP 97.4; O2SAT 96
[2017-03-22] MEDS: risperiDONE ODT 3 MG TAB PO SCH (21:17)
[2017-03-23 06:47] VITALS: BP 121/69; PULSE 81; RESP 18; TEMP 97.1; O2SAT 95
--- NOTE | 2017-03-23 07:04 | HHI.PYPN ---
Subjective Remarks Patient seen and examined. Chart reviewed. Case discussed with nursing staff. Nurse reports patient seems more dysphoric today. On my exam, patient says with a smile, "we keep meeting. I'll give you $1 million." Somewhat disinhibited, asks "will you dance with me" and steps on my foot. Denies side effects from medications. No physical complaints. Review of Systems ROS Limitations: Poor Historian Except as stated in HPI: all other systems reviewed are Neg Objective Alert: Yes [place]: Person, Place, Date Mood: Other (Mildly elevated) Affect: Euthymic Memory Intact: Comment (not assessed) Hallucinations: Other (No hallucinations) Delusions: Yes Delusion Type: Other (Possibly some grandiosity but no other delusions) Suicidal: Ideation (No SI) Homicidal: Ideation (No HI) Insight/Judgment Poor Remarks No motor abnormalities noted. TP with some ongoing loosening of associations. Labs Labs reviewed. Vitals/IOs Vital Signs Date Time Temp Pulse Resp B/P (MAP) Pulse Ox O2 Delivery O2 Flow Rate FiO2 03/23/17 06:47 97.1 81 18 121/69 (86) 95 Intake and Output 03/23/17 03/23/17 03/23/17 07:59 15:59 23:59 Intake Total 0 ml Balance 0 ml Assessment & Plan Problem List: (1) Bipolar disorder ICD Codes: F31.9 - Bipolar disorder, unspecified Status: Acute (2) Non compliance w medication regimen ICD Codes: Z91.14 - Patient's other noncompliance with medication regimen Assessment & Plan Titrate Risperdal to 3mg BID; to consider titration of Consta dose when this is next due. Continue Depakote as ordered; VPA level ordered for tomorrow morning. Continue to monitor on the inpatient unit. Hospitalist input noted and appreciated. Continue other medications and care as ordered. Justification for Cont. Inpt. Med changes. Impairment in reality construction. Risk for decompensation in less restrictive environment. Discharge Planning Pending psychiatric stabilization. Hopeful for discharge sometime next week. Request HC Surrog/Guard Advoc?: Yes Problem Qualifiers (1) Bipolar disorder: Qualified Codes: F31.2 - Bipolar disorder, current episode manic severe with psychotic features Osiel Davis MD Mar 23, 2017 07:04
[2017-03-23] MEDS: INSULIN ASPART SUPPLEMENTAL SCALE SQ SCH ×4 (08:00→20:21)
[2017-03-23] MEDS: LORazepam 0.5 MG TAB PO PRN (08:37)
[2017-03-23] MEDS: risperiDONE ODT 1 MG TAB PO SCH (08:38)
[2017-03-23] MEDS: METOPROLOL TARTRATE 25 MG TAB PO SCH ×2 (08:39→20:39)
[2017-03-23] MEDS: RIVAROXABAN 15 MG TAB PO SCH ×2 (08:39→20:40)
[2017-03-23] MEDS: DIVALPROEX SODIUM E.R. 250 MG TAB PO SCH (08:39)
[2017-03-23] MEDS: amLODIPine BESYLATE 5 MG TAB PO SCH (08:39)
[2017-03-23] MEDS: REMOVE OLD PATCH T-DERMAL SCH (09:00)
--- NOTE | 2017-03-23 11:58 | HHI.PR ---
Subjective Remarks Seen in common room. Patient is speaking very loudly and not making sense Objective Vital Signs Date Time Temp Pulse Resp B/P (MAP) Pulse Ox O2 Delivery O2 Flow Rate FiO2 03/23/17 06:47 97.1 81 18 121/69 (86) 95 03/22/17 17:34 97.4 71 17 113/60 (77) 96 I/O 03/22/17 03/22/17 03/22/17 03/23/17 03/23/17 03/23/17 07:00 15:00 23:00 07:00 15:00 23:00 Intake Total 0 ml 480 ml 240 ml Balance 0 ml 480 ml 240 ml Intake Oral 0 ml 480 ml 240 ml # Voids 2 2 # Bowel Movements 0 Objective Remarks GENERAL: Alert, speech pressured and loud SKIN: Warm and dry. HEAD: Normocephalic. EYES: No scleral icterus. No injection or drainage. NECK: Supple, trachea midline. No JVD or lymphadenopathy. CARDIOVASCULAR: Regular rate and rhythm without murmurs, gallops, or rubs. bilateral lower extremity edema 1+ RESPIRATORY: Breath sounds equal bilaterally. No accessory muscle use. GASTROINTESTINAL: Abdomen soft, non-tender, nondistended. MUSCULOSKELETAL: No cyanosis, or edema. BACK: Nontender without obvious deformity. No CVA tenderness. Medications and IVs Current Medications Medications (Trade) Dose Ordered Sig/[place]ent[place] Route Start Time Stop Time Status Last Admin (Norvasc) 5 mg DAILY PO 03/11/17 09:00 03/23/17 08:39 (D50w (Vial) Inj) 50 ml UNSCH PRN IV 03/10/17 12:15 (Glucagon Inj) 1 mg UNSCH PRN OTHER 03/10/17 12:15 (NovoLOG SUPPLEMENTAL SCALE) 1 ACHS SLIDING SCALE SQ 03/10/17 16:00 03/23/17 08:00 (Tylenol) 650 mg Q4H PRN PO 03/10/17 12:15 (Milk Of Magnesia Liq) 30 ml DAILY PRN PO 03/10/17 12:15 (Mag-Al Plus Susp Liq) 30 ml Q6H PRN PO 03/10/17 12:15 Miscellaneous Information 1 DAILY T-DERMAL 03/11/17 09:00 03/23/17 09:00 (Xarelto) 15 mg BID PO 03/10/17 21:00 03/31/17 20:59 03/23/17 08:39 (Ativan) 0.5 mg Q12H PRN PO 03/12/17 13:45 03/23/17 08:37 (Ativan Inj) 0.5 mg Q12H PRN IM 03/12/17 13:45 03/14/17 07:13 (Benadryl) 25 mg Q6H PRN PO 03/12/17 13:45 03/21/17 21:26 (Benadryl Inj) 25 mg Q6H PRN IM 03/12/17 13:45 03/14/17 07:13 (risperDAL M-TAB) 3 mg HS PO 03/12/17 21:00 03/22/17 21:17 (Xarelto) 20 mg DAILY PO 04/01/17 09:00 (Lopressor) 12.5 mg BID PO 03/21/17 09:00 03/23/17 08:39 (Pill Splitter) 1 ea UNSCH PRN OTHER 03/21/17 09:00 (Depakote Er) 1,250 mg DAILY PO 03/22/17 09:00 03/23/17 08:39 (risperDAL M-TAB) 3 mg DAILY PO 03/23/17 09:00 03/23/17 08:38 Assessment and Plan Problem List: (1) DVT (deep venous thrombosis) ICD Codes: I82.409 - Acute embolism and thrombosis of unspecified deep veins of unspecified lower extremity Status: Acute (2) Non compliance w medication regimen ICD Codes: Z91.14 - Patient's other noncompliance with medication regimen (3) Bipolar disorder ICD Codes: F31.9 - Bipolar disorder, unspecified Status: Acute (4) Cellulitis of lower extremity ICD Codes: L03.119 - Cellulitis of unspecified part of limb (5) Non-insulin dependent type 2 diabetes mellitus ICD Codes: E11.9 - Non-insulin dependent type 2 diabetes mellitus Status: Chronic (6) Hypertension ICD Codes: I10 - Hypertension Status: Acute Assessment and Plan 03/14/17 Bipolar disorder: Continues to be maniac. Speech is pressured and patient overly animated. Psych managing. DVT: Left lower extremity DVT. According to records second DVT last one 03/24. Edema is improved. On Xarelto Diabetes: BS AC and HS. Blood sugars have been mostly under 200mg/dl Will monitor Lower extremity cellulitis: On doxycycline HTN: B/p this AM will make changes if consistent. On metoprolol and norvasc. 03/16/17 Bipolar disorder: Continues to be maniac. Speech is less pressured. Psych managing. DVT: Left lower extremity DVT. According to records second DVT last one 03/24. Edema is improved. On Xarelto Diabetes: BS AC and HS. Blood sugars well controlled. Will monitor Lower extremity cellulitis: On doxycycline stop date on Monday HTN: B/p at 117/59 this AM. On metoprolol and norvasc. 03/21/17 Bipolar disorder: Speech is less pressured and easy to follow. Psych managing. DVT: Left lower extremity DVT. According to records second DVT last one 03/24. Edema is improved. On Xarelto Diabetes: BS AC and HS. Blood sugars well controlled all less than 200 overnight. Will monitor Lower extremity cellulitis: resolved and antibiotics complete HTN: B/p at 111/74 this AM. On metoprolol and norvasc. Will increase metoprolol to BID with heart rate in the 110-115. 03/23/17 Bipolar disorder: Speech is pressured and and very loud. Risperdal increased. Psych managing. DVT: Left lower extremity DVT. According to records second DVT last one 03/24. Edema is improved. On Xarelto Diabetes: BS AC and HS. Blood sugars well controlled all less than 200 overnight. Will monitor Lower extremity cellulitis: resolved and antibiotics complete HTN: B/p well controlled this AM. On metoprolol and norvasc. I and the RV REPAIRER have both examined this patient and reviewed this note and I agree with these findings an plan of care. Abdoulaye Barclay DO Problem Qualifiers (1) Bipolar disorder: Qualified Codes: F31.2 - Bipolar disorder, current episode manic severe with psychotic features Odette Khoury RV REPAIRER Mar 23, 2017 11:58
[2017-03-23 15:11] LABS: MEAN CELL VOLUME 85.2 FL (80.0-100.0); MEAN CORPUSCULAR HEMOGLOBIN 27.7 PG (27.0-34.0); MEAN CORPUSCULAR HGB CONC 32.4 % (32.0-36.0); PLATELET COUNT 155 TH/MM3 (150-450); RED BLOOD COUNT 3.99 MIL/MM3 (4.00-5.30); RED CELL DISTRIBUTION WIDTH 14.7 % (11.6-17.2); REVIEW FLAG FINAL; WHITE BLOOD COUNT 4.4 TH/MM3 (4.0-11.0)
[2017-03-23 15:32] LABS: BICARBONATE 27.6 MEQ/L (21.0-32.0); POTASSIUM 3.7 MEQ/L (3.5-5.1)
[2017-03-23 15:45] LABS: CALCIUM-PROTEIN CORRECTED 11.2 MG/DL (8.5-10.1)
[2017-03-23 18:06] VITALS: BP 106/55; PULSE 63; RESP 17; TEMP 97.6; O2SAT 100
[2017-03-23] MEDS: risperiDONE ODT 3 MG TAB PO SCH (20:40)
[2017-03-24 05:35] VITALS: BP 115/69; PULSE 92; RESP 18; TEMP 97.2
[2017-03-24] MEDS: INSULIN ASPART SUPPLEMENTAL SCALE SQ SCH ×4 (08:00→21:00)
--- NOTE | 2017-03-24 08:42 | HHI.PYPN ---
Subjective Remarks Patient seen and examined. Chart reviewed. Case discussed with nursing staff. On my examination today, the patient is calm and her thoughts are fairly organized. She does ramble during extended interview about one of the behavioral health technicians putting on shoe covers when assisting her in the shower. Otherwise, patient seems fairly appropriate and organized in conversation. She discusses her difficulties in assisting with the care of her adult daughter, who has medical needs. Denies side effects from medications. No physical complaints. Review of Systems ROS Limitations: Poor Historian Except as stated in HPI: all other systems reviewed are Neg Objective Alert: Yes [place]: Person, Place, Date Mood: Calm Affect: Appropriate Memory Intact: Comment (not assessed) Hallucinations: Other (no AVH) Delusions: No Delusion Type: Other (no delusions) Suicidal: Ideation (No SI) Homicidal: Ideation (No HI) Insight/Judgment Poor but perhaps improving somewhat Remarks No motor abnormalities noted. Thought process more linear today. Grooming and hygiene remain fair at best. Labs Test 03/23/17 14:02 White Blood Count 4.4 TH/MM3 Red Blood Count 3.99 MIL/MM3 Hemoglobin 11.0 GM/DL Hematocrit 34.0 % Mean Corpuscular Volume 85.2 FL Mean Corpuscular Hemoglobin 27.7 PG Mean Corpuscular Hemoglobin Concent 32.4 % Red Cell Distribution Width 14.7 % Platelet Count 155 TH/MM3 Mean Platelet Volume 9.4 FL Blood Urea Nitrogen 37 MG/DL Creatinine 1.72 MG/DL Random Glucose 104 MG/DL Total Protein 7.8 GM/DL Calcium Level 11.6 MG/DL Sodium Level 139 MEQ/L Potassium Level 3.7 MEQ/L Chloride Level 104 MEQ/L Carbon Dioxide Level 27.6 MEQ/L Anion Gap 7 MEQ/L Estimat Glomerular Filtration Rate 30 ML/MIN Protein Corrected Calcium 11.2 MG/DL Labs reviewed. Depakote level 90, comfortably within the therapeutic range. Hypercalcemia and decreased GFR noted; hospitalist to follow up. Vitals/IOs Vital Signs Date Time Temp Pulse Resp B/P (MAP) Pulse Ox O2 Delivery O2 Flow Rate FiO2 03/24/17 05:35 97.2 92 18 115/69 (84) 03/23/17 18:06 100 Assessment & Plan Problem List: (1) Bipolar disorder ICD Codes: F31.9 - Bipolar disorder, unspecified Status: Acute (2) Non compliance w medication regimen ICD Codes: Z91.14 - Patient's other noncompliance with medication regimen Assessment & Plan Continue oral Risperdal supplementing Risperdal Consta, which is next due on . Continue Depakote as ordered. Appreciate hospitalist remediation consultant input. Check a BMP in the morning to trend GFR and calcium. Continue other medications and care as ordered. Justification for Cont. Inpt. Risk for decompensation and less restrictive environment Discharge Planning Possible discharge sometime next week Request HC Surrog/Guard Advoc?: Yes Problem Qualifiers (1) Bipolar disorder: Qualified Codes: F31.2 - Bipolar disorder, current episode manic severe with psychotic features Osiel Davis MD Mar 24, 2017 08:42
[2017-03-24] MEDS: REMOVE OLD PATCH T-DERMAL SCH (09:00)
[2017-03-24] MEDS: amLODIPine BESYLATE 5 MG TAB PO SCH (09:00)
[2017-03-24] MEDS: METOPROLOL TARTRATE 25 MG TAB PO SCH ×2 (09:00→21:26)
[2017-03-24] MEDS: DIVALPROEX SODIUM E.R. 250 MG TAB PO SCH (09:00)
[2017-03-24] MEDS: RIVAROXABAN 15 MG TAB PO SCH ×2 (09:00→21:26)
[2017-03-24] MEDS: risperiDONE ODT 1 MG TAB PO SCH (09:00)
[2017-03-24 17:00] VITALS: BP 116/61; PULSE 67; RESP 17; TEMP 97.6; O2SAT 98
[2017-03-24] MEDS: diphenhydrAMINE HCL 25 MG CAP PO PRN (21:26)
[2017-03-24] MEDS: LORazepam 0.5 MG TAB PO PRN (21:26)
[2017-03-24] MEDS: risperiDONE ODT 3 MG TAB PO SCH (21:26)
[2017-03-25 06:19] VITALS: BP 92/50; PULSE 87; RESP 16; TEMP 97.9; O2SAT 97
[2017-03-25] MEDS: INSULIN ASPART SUPPLEMENTAL SCALE SQ SCH ×4 (08:00→20:36)
[2017-03-25] MEDS: DIVALPROEX SODIUM E.R. 250 MG TAB PO SCH (09:00)
[2017-03-25] MEDS: REMOVE OLD PATCH T-DERMAL SCH (09:00)
[2017-03-25] MEDS: risperiDONE ODT 1 MG TAB PO SCH (09:02)
[2017-03-25] MEDS: METOPROLOL TARTRATE 25 MG TAB PO SCH ×2 (09:02→20:35)
[2017-03-25] MEDS: RIVAROXABAN 15 MG TAB PO SCH ×2 (09:02→20:35)
[2017-03-25] MEDS: amLODIPine BESYLATE 5 MG TAB PO SCH (09:02)
[2017-03-25 09:05] VITALS: BP 114/54; PULSE 84
[2017-03-25 14:20] LABS: BICARBONATE 29.1 MEQ/L (21.0-32.0); POTASSIUM 4.1 MEQ/L (3.5-5.1)
--- NOTE | 2017-03-25 14:23 | HHI.PYPN ---
Subjective Remarks Patient was seen and case discussed with nursing. Per nursing patient is oppositional with medications. During the interview. Patient remains disheveled and disorganized. She is perseverative on ECT. Denies auditory or visual hallucinations but responding to internal stimuli. Objective Alert: Yes [place]: Person, Place, Date Mood: Oppositional Affect: Appropriate Memory Intact: Comment (not assessed) Hallucinations: Other (no AVH) Delusions: No Delusion Type: Other (no delusions) Suicidal: Ideation (No SI) Homicidal: Ideation (No HI) Insight/Judgment Poor Labs Test 03/25/17 11:39 Vitals/IOs Vital Signs Date Time Temp Pulse Resp B/P (MAP) Pulse Ox O2 Delivery O2 Flow Rate FiO2 03/25/17 09:05 84 114/54 (74) 03/25/17 06:19 97.9 16 97 Intake and Output 03/25/17 03/25/17 03/26/17 08:00 16:00 00:00 Intake Total 0 ml Balance 0 ml Assessment & Plan Problem List: (1) Bipolar disorder ICD Codes: F31.9 - Bipolar disorder, unspecified Status: Acute (2) Non compliance w medication regimen ICD Codes: Z91.14 - Patient's other noncompliance with medication regimen Assessment & Plan Continue current treatment plan Justification for Cont. Inpt. Patient would decompensate in a less restrictive setting Request HC Surrog/Guard Advoc?: Yes Problem Qualifiers (1) Bipolar disorder: Qualified Codes: F31.2 - Bipolar disorder, current episode manic severe with psychotic features Cody Chaidez DO Mar 25, 2017 14:23
[2017-03-25 14:42] LABS: CALCIUM-PROTEIN CORRECTED 11.4 MG/DL (8.5-10.1)
[2017-03-25 18:23] VITALS: BP 114/60; PULSE 71; RESP 18; TEMP 97.7; O2SAT 98
[2017-03-25] MEDS: risperiDONE ODT 3 MG TAB PO SCH (20:35)
[2017-03-26 06:00] VITALS: BP_SYST 109; BP_SYST 92; BP_DIAS 50; BP_DIAS 55; PULSE 85; PULSE 87; RESP 16; TEMP 97.9; O2SAT 97
[2017-03-26] MEDS: INSULIN ASPART SUPPLEMENTAL SCALE SQ SCH ×4 (08:00→21:00)
[2017-03-26] MEDS: DIVALPROEX SODIUM E.R. 250 MG TAB PO SCH (08:59)
[2017-03-26] MEDS: risperiDONE ODT 1 MG TAB PO SCH (08:59)
[2017-03-26] MEDS: REMOVE OLD PATCH T-DERMAL SCH (09:00)
[2017-03-26] MEDS: RIVAROXABAN 15 MG TAB PO SCH ×2 (09:00→21:06)
[2017-03-26 09:03] VITALS: BP 132/69; PULSE 78
[2017-03-26] MEDS: METOPROLOL TARTRATE 25 MG TAB PO SCH ×2 (09:07→21:06)
[2017-03-26] MEDS: amLODIPine BESYLATE 5 MG TAB PO SCH (09:07)
[2017-03-26] MEDS: LORazepam 0.5 MG TAB PO PRN (13:14)
--- NOTE | 2017-03-26 13:58 | HHI.PYPN ---
Subjective Remarks Patient was seen and case discussed with nursing. Per nursing patient is an more elevated and had to be taken to the hallway earlier today. During my interview she is not labile and appears less perseverative. His compliant with her medication and is no longer focused on ECT. Objective Alert: Yes [place]: Person, Place, Date Mood: Calm Affect: Labile Memory Intact: Comment (not assessed) Hallucinations: Other (no AVH) Delusions: No Delusion Type: Other (no delusions) Suicidal: Ideation (No SI) Homicidal: Ideation (No HI) Insight/Judgment Poor Vitals/IOs Vital Signs Date Time Temp Pulse Resp B/P (MAP) Pulse Ox O2 Delivery O2 Flow Rate FiO2 03/26/17 09:03 78 132/69 (90) 03/26/17 06:00 97.9 16 97 Intake and Output 03/26/17 03/26/17 03/27/17 08:00 16:00 00:00 Intake Total 360 ml Balance 360 ml Assessment & Plan Problem List: (1) Bipolar disorder ICD Codes: F31.9 - Bipolar disorder, unspecified Status: Acute (2) Non compliance w medication regimen ICD Codes: Z91.14 - Patient's other noncompliance with medication regimen Assessment & Plan Continue current treatment plan Justification for Cont. Inpt. Patient will decompensate in a less restrictive setting Request HC Surrog/Guard Advoc?: Yes Problem Qualifiers (1) Bipolar disorder: Qualified Codes: F31.2 - Bipolar disorder, current episode manic severe with psychotic features Cody Chaidez DO Mar 26, 2017 13:58
[2017-03-26 18:26] VITALS: BP 119/61; PULSE 72; RESP 17; TEMP 98.1; O2SAT 97
[2017-03-26] MEDS: risperiDONE ODT 3 MG TAB PO SCH (21:05)
[2017-03-27 05:30] VITALS: BP 123/65; PULSE 76; RESP 18; TEMP 97.8; O2SAT 96
[2017-03-27 05:52] VITALS: BP 123/65; PULSE 76; RESP 18; TEMP 97.8; O2SAT 96
[2017-03-27 06:00] VITALS: BP 120/67; PULSE 70; RESP 18; TEMP 97.7; O2SAT 96
[2017-03-27] MEDS: INSULIN ASPART SUPPLEMENTAL SCALE SQ SCH ×4 (08:00→20:48)
--- NOTE | 2017-03-27 08:35 | HHI.PYPN ---
Subjective Remarks Patient seen and examined. Chart reviewed. Case discussed with nursing staff. Patient noted to be somewhat oppositional regarding medications this morning. On my exam, patient continues to display some loosening of associations. She tells me that "a line of demarkation has already been set. A line in the sand. " This leads to a discursive narrative about the ocean. Remains oppositional regarding meds. No reported side effects from medications however. No physical complaints. Review of Systems ROS Limitations: Poor Historian Except as stated in HPI: all other systems reviewed are Neg Objective Alert: Yes [place]: Person, Place, Date Mood: Oppositional Affect: Labile (mild) Memory Intact: Comment (not assessed) Hallucinations: Other (none) Delusions: No Delusion Type: Other (possibly some mild grandiosity) Suicidal: Ideation (No SI) Homicidal: Ideation (No HI) Insight/Judgment Poor Remarks No motor abnormalities noted. Grooming and hygiene fair to poor at best. Thought process with ongoing loosening of associations. Labs Labs reviewed. Increased calcium noted. Vitals/IOs Vital Signs Date Time Temp Pulse Resp B/P (MAP) Pulse Ox O2 Delivery O2 Flow Rate FiO2 03/27/17 05:52 97.8 76 18 123/65 (84) 96 Assessment & Plan Problem List: (1) Bipolar disorder ICD Codes: F31.9 - Bipolar disorder, unspecified Status: Acute (2) Non compliance w medication regimen ICD Codes: Z91.14 - Patient's other noncompliance with medication regimen Assessment & Plan Patient has experienced improvement in presenting mood episode with existing psychotropic regimen but has not stabilized adequately for safety discharge. The patient previously has been on Navane. I will add a low dose of Navane, 1 mg twice daily to her existing regimen, and this may be titrated to effect if helpful. Continue Depakote and Risperdal as ordered. I have consulted the hospitalist to return to evaluate the patient's hypercalcemia and we'll check a BMP today. Continue to monitor on the geropsychiatric unit. Continue other medications and care as ordered. Justification for Cont. Inpt. Med changes. Risk for decompensation in less restrictive environment. Discharge Planning Pending psychiatric stabilization. Request HC Surrog/Guard Advoc?: Yes Problem Qualifiers (1) Bipolar disorder: Qualified Codes: F31.2 - Bipolar disorder, current episode manic severe with psychotic features Osiel Davis MD Mar 27, 2017 08:35
[2017-03-27] MEDS: REMOVE OLD PATCH T-DERMAL SCH (09:00)
[2017-03-27] MEDS: DIVALPROEX SODIUM E.R. 250 MG TAB PO SCH (09:30)
[2017-03-27] MEDS: risperiDONE ODT 1 MG TAB PO SCH (09:32)
[2017-03-27] MEDS: METOPROLOL TARTRATE 25 MG TAB PO SCH ×2 (09:32→20:47)
[2017-03-27] MEDS: amLODIPine BESYLATE 5 MG TAB PO SCH (09:33)
[2017-03-27] MEDS: RIVAROXABAN 15 MG TAB PO SCH ×2 (09:33→20:47)
[2017-03-27 15:47] LABS: POTASSIUM 3.8 MEQ/L (3.5-5.1)
[2017-03-27] MEDS: risperiDONE ODT 3 MG TAB PO SCH (20:47)
[2017-03-27] MEDS: THIOTHIXENE 1 MG CAP PO SCH (20:48)
[2017-03-28] MEDS: LORazepam 0.5 MG TAB PO PRN (00:27)
[2017-03-28] MEDS: diphenhydrAMINE HCL 25 MG CAP PO PRN (01:10)
[2017-03-28] MEDS: LORazepam 2 MG/ML VIAL IM PRN (04:24)
[2017-03-28 05:59] VITALS: BP 123/69; PULSE 76; RESP 18; TEMP 97.8; O2SAT 94
[2017-03-28] MEDS: INSULIN ASPART SUPPLEMENTAL SCALE SQ SCH ×4 (07:59→20:31)
--- NOTE | 2017-03-28 08:10 | HHI.PYPN ---
Subjective Remarks Patient seen and examined. Chart reviewed. Case discussed in treatment team. Case also discussed with EVISCERATOR Iraida from hospitalist service who recommends IVF. On my exam, patient is calm, says that she is feeling "better and better. " TP with some ongoing loosening of associations, rambles about Abilify and pulling jelly beans out of her head. No SI/HI. Discussed plan [facility] and IVF with patient. She is happy to be back on Navane and denies side effects from meds. Review of Systems ROS Limitations: Poor Historian Except as stated in HPI: all other systems reviewed are Neg Objective Alert: Yes [place]: Person, Place, Date Mood: Calm Affect: Other (Fairly appropriate today) Memory Intact: Comment (not assessed) Hallucinations: Other (No AVH) Delusions: No Delusion Type: Other (Some bizarre ideation as noted above) Suicidal: Ideation (No SI) Homicidal: Ideation (No HI) Insight/Judgment Poor Remarks No motor abnormalities noted. Thought process with some ongoing loosening of associations. Grooming and hygiene fair to poor at best. Labs Test 03/27/17 14:49 Blood Urea Nitrogen 35 MG/DL Creatinine 2.04 MG/DL Random Glucose 97 MG/DL Calcium Level 11.1 MG/DL Sodium Level 137 MEQ/L Potassium Level 3.8 MEQ/L Chloride Level 104 MEQ/L Carbon Dioxide Level 27.0 MEQ/L Anion Gap 6 MEQ/L Estimat Glomerular Filtration Rate 24 ML/MIN Labs reviewed. Decreasing GFR noted. Vitals/IOs Vital Signs Date Time Temp Pulse Resp B/P (MAP) Pulse Ox O2 Delivery O2 Flow Rate FiO2 03/28/17 05:59 97.8 76 18 123/69 (87) 94 Assessment & Plan Problem List: (1) Bipolar disorder ICD Codes: F31.9 - Bipolar disorder, unspecified Status: Acute (2) Non compliance w medication regimen ICD Codes: Z91.14 - Patient's other noncompliance with medication regimen Assessment & Plan Titrate Navane to 2mg BID and continue other psychotropics as ordered. Patient due for booster dose of Risperdal Consta later this week. Transfer to [facility] for IVF. I note that the hospitalist has additionally consulted nephrology. Continue other medications and care as ordered. Justification for Cont. Inpt. Complicating conditions. Risk for decompensation and less restrictive environment. Med changes. Discharge Planning Pending psychiatric stabilization. Request HC Surrog/Guard Advoc?: Yes Problem Qualifiers (1) Bipolar disorder: Qualified Codes: F31.2 - Bipolar disorder, current episode manic severe with psychotic features Osiel Davis MD Mar 28, 2017 08:10
[2017-03-28] MEDS: REMOVE OLD PATCH T-DERMAL SCH (09:00)
[2017-03-28] MEDS: RIVAROXABAN 15 MG TAB PO SCH ×2 (09:00→21:22)
[2017-03-28] MEDS: DIVALPROEX SODIUM E.R. 250 MG TAB PO SCH (09:00)
[2017-03-28] MEDS ORDERED: SODIUM CHLOR 0.9% 1000 ML INJ 1,000 ML IV SCH (09:10)
[2017-03-28] MEDS: THIOTHIXENE 1 MG CAP PO SCH ×2 (09:14→20:29)
[2017-03-28] MEDS: METOPROLOL TARTRATE 25 MG TAB PO SCH ×2 (09:16→20:30)
[2017-03-28] MEDS: amLODIPine BESYLATE 5 MG TAB PO SCH (09:17)
[2017-03-28] MEDS: risperiDONE ODT 1 MG TAB PO SCH (09:18)
[2017-03-28 09:36] LABS: HEMATOCRIT 34.7 % (35.0-46.0); MEAN CELL VOLUME 85.3 FL (80.0-100.0); MEAN CORPUSCULAR HEMOGLOBIN 27.5 PG (27.0-34.0); MEAN CORPUSCULAR HGB CONC 32.3 % (32.0-36.0); PLATELET COUNT 112 TH/MM3 (150-450); RED BLOOD COUNT 4.07 MIL/MM3 (4.00-5.30); RED CELL DISTRIBUTION WIDTH 15.1 % (11.6-17.2); REVIEW FLAG FINAL; WHITE BLOOD COUNT 4.1 TH/MM3 (4.0-11.0)
[2017-03-28 09:50] LABS: BICARBONATE 26.7 MEQ/L (21.0-32.0)
[2017-03-28] MEDS: SODIUM CHLOR 0.45% 1000 ML INJ 1,000 ML IV SCH ×2 (11:30→21:23)
--- NOTE | 2017-03-28 11:43 | PD.CONS ---
[facility] Service Nephrology Consult Requested By Reason for Consult KANCHAN and hypercalcemia Primary Care Physician Abdoulaye Barclay, DO History of Present Illness Ms. Hurley is a 66 year old lady with history of bipolar illness who has been admitted with bipolar illness issues. She does have history of KANCHAN and hypercalcemia in the past, I had seen her in October. Patient was being given Lasix at that time, hypercalcemia, and renal function improved with hydration. PTH was appropriately low. 1,25 dihydroxy Vitamin D level was not high. Patient's creatinine was 1.72 on the , it increased to 1.89 as of , it was 2.04 as of and today it is 1.96. Corresponding serum Calcium levels were 11.6, 12.1, 11.1 and 11. Currently she is on IVF. Review of Systems Constitutional: COMPLAINS OF: Fatigue, DENIES: Fever Ears, nose, mouth, throat: DENIES: Hearing loss Cardiovascular: DENIES: Chest pain, Palpitations Gastrointestinal: DENIES: Abdominal pain Musculoskeletal: DENIES: Joint pain, Muscle aches Past Family Social History Allergies: Coded Allergies: Sulfa (Sulfonamide Antibiotics) (Verified Allergy, Severe, Hives, 03/08/17) ibuprofen (Verified Allergy, Severe, HIVES, 03/08/17) penicillin G (Verified Allergy, Severe, HIVES, 03/08/17) Past Medical History Bipolar illness Hypertension Reported Medications Thiothixene 10 Mg Cap 10 Mg PO BID@,16 Potassium Chloride Microencaps 20 Meq Tab 20 Meq PO DAILY Olanzapine 15 Mg Tab 15 Mg PO BID Metoprolol Tartrate 25 Mg Tab 12.5 Mg PO 1/2 PO Q 12 H Depakote ER (Divalproex Sodium) 500 Mg Diana 1,000 Mg PO 2 PO [facility] Norvasc (Amlodipine Besylate) 5 Mg Tab 5 Mg PO DAILY Thiothixene 10 Mg Cap 10 Mg PO DAILY@08,16 Depakote ER (Divalproex Sodium) 500 Mg Diana 1,000 Mg PO HS Norvasc (Amlodipine Besylate) 5 Mg Tab 5 Mg PO DAILY 28 Days Thiothixene 10 Mg Cap 10 Mg PO DAILY@08,16 0 Days Zyprexa Zydis (Olanzapine) 20 Mg Tab 20 Mg PO HS 0 Days Metoprolol Tartrate 25 Mg Tab 12.5 Mg PO Q12HR 0 Days Depakote ER (Divalproex Sodium) 500 Mg Diana 1,000 Mg PO HS 0 Days Reported Macrobid (Nitrofurantoin Monoh/Nitrofur Macro) 100 Mg Cap 100 Mg PO BID Zyprexa (Olanzapine) 20 Mg Tab 20 Mg PO HS Active Ordered Medications Current Medications Medications (Trade) Dose Ordered Sig/[place] Route Start Time Stop Time Status Last Admin (Norvasc) 5 mg DAILY PO 03/11/17 09:00 03/28/17 09:17 (D50w (Vial) Inj) 50 ml UNSCH PRN IV 03/10/17 12:15 (Glucagon Inj) 1 mg UNSCH PRN OTHER 03/10/17 12:15 (NovoLOG SUPPLEMENTAL SCALE) 1 ACHS SLIDING SCALE SQ 03/10/17 16:00 03/23/17 16:03 (Tylenol) 650 mg Q4H PRN PO 03/10/17 12:15 (Milk Of Magnesia Liq) 30 ml DAILY PRN PO 03/10/17 12:15 (Mag-Al Plus Susp Liq) 30 ml Q6H PRN PO 03/10/17 12:15 Miscellaneous Information 1 DAILY T-DERMAL 03/11/17 09:00 03/23/17 09:00 (Xarelto) 15 mg BID PO 03/10/17 21:00 03/31/17 20:59 03/28/17 09:00 (Ativan) 0.5 mg Q12H PRN PO 03/12/17 13:45 03/26/17 13:14 (Ativan Inj) 0.5 mg Q12H PRN IM 03/12/17 13:45 03/28/17 04:24 (Benadryl) 25 mg Q6H PRN PO 03/12/17 13:45 03/28/17 01:10 (Benadryl Inj) 25 mg Q6H PRN IM 03/12/17 13:45 03/14/17 07:13 (risperDAL M-TAB) 3 mg HS PO 03/12/17 21:00 03/27/17 20:47 (Xarelto) 20 mg DAILY PO 04/01/17 09:00 (Lopressor) 12.5 mg BID PO 03/21/17 09:00 03/28/17 09:16 (Pill Splitter) 1 ea UNSCH PRN OTHER 03/21/17 09:00 (Depakote Er) 1,250 mg DAILY PO 03/22/17 09:00 03/28/17 09:00 (risperDAL M-TAB) 3 mg DAILY PO 03/23/17 09:00 03/28/17 09:18 (Navane) 1 mg Q12HR PO 03/27/17 21:00 03/28/17 09:14 Sodium Chloride 1,000 ml @ 100 mls/hr Q10H IV 03/28/17 09:10 Family History reviewed, non contributory Social History occasional ETOH, no tobacco. Physical Exam Vital Signs Vital Signs Date Time Temp Pulse Resp B/P (MAP) Pulse Ox O2 Delivery O2 Flow Rate FiO2 03/28/17 05:59 97.8 76 18 123/69 (87) 94 Physical Exam GENERAL: sitting on a chair. Comfortable. SKIN: Warm and dry. HEAD: Normocephalic. EYES: No scleral icterus. No injection or drainage. NECK: Supple, trachea midline. No JVD or lymphadenopathy. CARDIOVASCULAR: Regular rate and rhythm without murmurs, gallops, or rubs. RESPIRATORY: Breath sounds equal bilaterally. No accessory muscle use. GASTROINTESTINAL: Abdomen soft, non-tender, nondistended. MUSCULOSKELETAL: No cyanosis, or edema. BACK: Nontender without obvious deformity. No CVA tenderness. Laboratory Laboratory Tests Test 03/27/17 14:49 03/28/17 06:51 03/28/17 06:57 Blood Urea Nitrogen 35 34 Creatinine 2.04 1.96 Random Glucose 97 90 Calcium Level 11.1 11.0 Sodium Level 137 142 Potassium Level 3.8 4.0 Chloride Level 104 107 Carbon Dioxide Level 27.0 26.7 Anion Gap 6 8 Estimat Glomerular Filtration Rate 24 25 Parathyroid Hormone (Intact) LESS THAN 2.5 White Blood Count 4.1 Red Blood Count 4.07 Hemoglobin 11.2 Hematocrit 34.7 Mean Corpuscular Volume 85.3 Mean Corpuscular Hemoglobin 27.5 Mean Corpuscular Hemoglobin Concent 32.3 Red Cell Distribution Width 15.1 Platelet Count 112 Mean Platelet Volume 10.0 Result Diagram: 03/28/17 0657 03/28/17 0651 Assessment and Plan Problem List: (1) Acute kidney injury ICD Codes: N17.9 - Acute kidney failure, unspecified Plan: likely due to pre-renal azotemia. Continue IVF. I will change IVF to 1/2NS. Avoid nephrotoxic agents such as NSAIDs. (2) Hypercalcemia ICD Codes: E83.52 - Hypercalcemia Status: Resolved Plan: Workup in the past was negative, it was thought to be secondary to intravascular volume depletion, she was on Vitamin D supplements at that time. PTH was appropriately low. 1, 25 dihydroxy Vitamin D level was not high. Protein electrophoresis was negative for monoclonal protein. PTH is again appropriately low, and so she does not have primary hyperparathyroidism. PTH related peptide is pending. Continue IVF. Monitor. Avoid thiazide type diuretic. (3) Bipolar disorder ICD Codes: F31.9 - Bipolar disorder, unspecified Status: Acute Plan: management per psychiatry. It does not appear that she has been on [place]. [place] can cause both renal failure and hypercalcemia. Assessment and Plan Thanks for the consult. Problem Qualifiers (1) Bipolar disorder: Qualified Codes: F31.2 - Bipolar disorder, current episode manic severe with psychotic features Thor Andrew MD Mar 28, 2017 11:43
--- NOTE | 2017-03-28 13:00 | HHI.PR ---
Subjective Remarks Seen in common room. Patient speech is nonsensical but keeps pointing to head. Objective Vital Signs Date Time Temp Pulse Resp B/P (MAP) Pulse Ox O2 Delivery O2 Flow Rate FiO2 03/28/17 05:59 97.8 76 18 123/69 (87) 94 I/O 03/27/17 03/27/17 03/27/17 03/28/17 03/28/17 03/28/17 07:00 15:00 23:00 07:00 15:00 23:00 Intake Total 120 ml 150 ml 120 ml Balance 120 ml 150 ml 120 ml Intake Oral 120 ml 150 ml 120 ml # Voids 2 1 Result Diagram: 03/28/17 0657 03/28/17 0651 Objective Remarks GENERAL: Alert, speech pressured and loud SKIN: Warm and dry. HEAD: Normocephalic. EYES: No scleral icterus. No injection or drainage. NECK: Supple, trachea midline. No JVD or lymphadenopathy. CARDIOVASCULAR: Regular rate and rhythm without murmurs, gallops, or rubs. bilateral lower extremity edema 1+ RESPIRATORY: Breath sounds equal bilaterally. No accessory muscle use. GASTROINTESTINAL: Abdomen soft, non-tender, nondistended. MUSCULOSKELETAL: No cyanosis, or edema. BACK: Nontender without obvious deformity. No CVA tenderness. Medications and IVs Current Medications Medications (Trade) Dose Ordered Sig/[place] Route Start Time Stop Time Status Last Admin (Norvasc) 5 mg DAILY PO 03/11/17 09:00 03/28/17 09:17 (D50w (Vial) Inj) 50 ml UNSCH PRN IV 03/10/17 12:15 (Glucagon Inj) 1 mg UNSCH PRN OTHER 03/10/17 12:15 (NovoLOG SUPPLEMENTAL SCALE) 1 ACHS SLIDING SCALE SQ 03/10/17 16:00 03/23/17 16:03 (Tylenol) 650 mg Q4H PRN PO 03/10/17 12:15 (Milk Of Magnesia Liq) 30 ml DAILY PRN PO 03/10/17 12:15 (Mag-Al Plus Susp Liq) 30 ml Q6H PRN PO 03/10/17 12:15 Miscellaneous Information 1 DAILY T-DERMAL 03/11/17 09:00 03/23/17 09:00 (Xarelto) 15 mg BID PO 03/10/17 21:00 03/31/17 20:59 03/28/17 09:00 (Ativan) 0.5 mg Q12H PRN PO 03/12/17 13:45 03/26/17 13:14 (Ativan Inj) 0.5 mg Q12H PRN IM 03/12/17 13:45 03/28/17 04:24 (Benadryl) 25 mg Q6H PRN PO 03/12/17 13:45 03/28/17 01:10 (Benadryl Inj) 25 mg Q6H PRN IM 03/12/17 13:45 03/14/17 07:13 (risperDAL M-TAB) 3 mg HS PO 03/12/17 21:00 03/27/17 20:47 (Xarelto) 20 mg DAILY PO 04/01/17 09:00 (Lopressor) 12.5 mg BID PO 03/21/17 09:00 03/28/17 09:16 (Pill Splitter) 1 ea UNSCH PRN OTHER 03/21/17 09:00 (Depakote Er) 1,250 mg DAILY PO 03/22/17 09:00 03/28/17 09:00 (risperDAL M-TAB) 3 mg DAILY PO 03/23/17 09:00 03/28/17 09:18 (Navane) 1 mg Q12HR PO 03/27/17 21:00 03/28/17 09:14 Sodium Chloride 1,000 ml @ 100 mls/hr Q10H IV 03/28/17 11:30 Assessment and Plan Problem List: (1) DVT (deep venous thrombosis) ICD Codes: I82.409 - Acute embolism and thrombosis of unspecified deep veins of unspecified lower extremity Status: Acute (2) Non compliance w medication regimen ICD Codes: Z91.14 - Patient's other noncompliance with medication regimen (3) Bipolar disorder ICD Codes: F31.9 - Bipolar disorder, unspecified Status: Acute (4) Cellulitis of lower extremity ICD Codes: L03.119 - Cellulitis of unspecified part of limb (5) Non-insulin dependent type 2 diabetes mellitus ICD Codes: E11.9 - Non-insulin dependent type 2 diabetes mellitus Status: Chronic (6) Hypertension ICD Codes: I10 - Hypertension Status: Acute Assessment and Plan 03/14/17 Bipolar disorder: Continues to be maniac. Speech is pressured and patient overly animated. Psych managing. DVT: Left lower extremity DVT. According to records second DVT last one 03/24. Edema is improved. On Xarelto Diabetes: BS AC and HS. Blood sugars have been mostly under 200mg/dl Will monitor Lower extremity cellulitis: On doxycycline HTN: B/p this AM will make changes if consistent. On metoprolol and norvasc. 03/16/17 Bipolar disorder: Continues to be maniac. Speech is less pressured. Psych managing. DVT: Left lower extremity DVT. According to records second DVT last one 03/24. Edema is improved. On Xarelto Diabetes: BS AC and HS. Blood sugars well controlled. Will monitor Lower extremity cellulitis: On doxycycline stop date on Monday HTN: B/p at 117/59 this AM. On metoprolol and norvasc. 03/21/17 Bipolar disorder: Speech is less pressured and easy to follow. Psych managing. DVT: Left lower extremity DVT. According to records second DVT last one 03/24. Edema is improved. On Xarelto Diabetes: BS AC and HS. Blood sugars well controlled all less than 200 overnight. Will monitor Lower extremity cellulitis: resolved and antibiotics complete HTN: B/p at 111/74 this AM. On metoprolol and norvasc. Will increase metoprolol to BID with heart rate in the 110-115. 03/23/17 Bipolar disorder: Speech is pressured and and very loud. Risperdal increased. Psych managing. DVT: Left lower extremity DVT. According to records second DVT last one 03/24. Edema is improved. On Xarelto Diabetes: BS AC and HS. Blood sugars well controlled all less than 200 overnight. Will monitor Lower extremity cellulitis: resolved and antibiotics complete HTN: B/p well controlled this AM. On metoprolol and norvasc. 03/28/17 Bipolar disorder: Psych managing. Hypercalcemia: Patient transferred to medical psych. Nephrology consulted. IVF 1/2 NS per nephrology note most likely prerenal azotemia. CA slightly improved today at 11.0. PTH low. GFR has declined this admission from 54 to 24. DVT: Left lower extremity DVT. On Xarelto Diabetes: BS AC and HS. Blood sugars well controlled all less than 200 overnight. Will monitor HTN: B/p well controlled this AM. On metoprolol and norvasc. I and the PURCHASE ORDER CHECKER have both examined this patient and reviewed this note and I agree with these findings an plan of care. Abdoulaye Barclay DO Problem Qualifiers (1) Bipolar disorder: Qualified Codes: F31.2 - Bipolar disorder, current episode manic severe with psychotic features Odette Khoury [facility] Mar 28, 2017 13:00
--- NOTE | 2017-03-28 14:56 | PD.TTN ---
Patient Problems 1. Discharge planning 2. Medication compliance 3. Knowledge deficit 4. Lack of coping skills Progress Toward Goals Provider Input: she is getting meds adjusted with goal of an injection discussed in court to address involuntary program 03/28 will continue to help with med adjustment although she is on good regiment Nurse(s) Input: Kristie: verbally loud and got extra meds today to calm her 03/28/17 Bhanu Perez pt is still hyper and manic, needed extra PRN meds last night , was better this morning Psychiatric Counselors Present: Stephanie Davis LCSW Psych Therapist Input: suggested [facility] team can do referral even if involuntary program is option pt more likely wants to remain living with daugther 03/28 does not appear at baseline and very childlike at times, and other times inappropriate and manic with other patients, but clear moments and overall some improvement goal to discharge back home with Outpatient commitment program, referrral also made to [facility] with hope to have more services in home eventually Group Spec/RT/OT/CHENG Present: SKYLAR Musa Group Spec/RT/OT/CHENG Input: unable to come inappropriate and loud at this time Occupational Therapist Input: comes to some groups per Raymond 03/28 Documentation Teaching Recipient: Patient Stephanie Davis LCSW Mar 28, 2017 14:56
[2017-03-28 17:43] VITALS: BP 128/73; PULSE 75; RESP 18; TEMP 97.1; O2SAT 99
[2017-03-28] MEDS: risperiDONE ODT 3 MG TAB PO SCH (20:29)
[2017-03-29 05:18] VITALS: BP 164/75; PULSE 83; RESP 18; TEMP 97.6; O2SAT 98
[2017-03-29] MEDS: SODIUM CHLOR 0.45% 1000 ML INJ 1,000 ML IV SCH ×2 (05:42→17:30)
[2017-03-29] MEDS: INSULIN ASPART SUPPLEMENTAL SCALE SQ SCH ×4 (08:00→21:00)
--- NOTE | 2017-03-29 08:06 | HHI.PYPN ---
Subjective Remarks Patient seen and examined with nurse. Chart reviewed. Case discussed with nursing staff. On my examination today, patient remains little bit hyperverbal with some loosening of associations. Some perseveration on medicines and doctors she has seen in the past. No reported side effects from medications. No physical complaints. Review of Systems ROS Limitations: Poor Historian Except as stated in HPI: all other systems reviewed are Neg Objective Alert: Yes [place]: Person, Place, Date Mood: Other (somewhat elevated) Affect: Other (mildly expansive) Memory Intact: Comment (not assessed) Hallucinations: Other (No AVH) Delusions: No Delusion Type: Other (no delusions) Suicidal: Ideation (No SI) Homicidal: Ideation (No HI) Insight/Judgment Poor Remarks Some ongoing loosening of associations. No motor abnormalities noted. Labs Labs reviewed. GFR stable. Calcium level slightly reduced. Ionized calcium and parathyroid hormone level pending. Vitals/IOs Vital Signs Date Time Temp Pulse Resp B/P (MAP) Pulse Ox O2 Delivery O2 Flow Rate FiO2 03/29/17 05:18 97.6 83 18 164/75 (104) 98 Intake and Output 03/29/17 03/29/17 03/30/17 08:00 16:00 00:00 Intake Total 948 ml Balance 948 ml Assessment & Plan Problem List: (1) Bipolar disorder ICD Codes: F31.9 - Bipolar disorder, unspecified Status: Acute (2) Non compliance w medication regimen ICD Codes: Z91.14 - Patient's other noncompliance with medication regimen Assessment & Plan Continue titration of Navane to 3 mg twice daily. Continue oral Risperdal supplementing Risperdal Consta. Patient will be due for booster dose of Consta tomorrow, to consider titrating the dose. Check BMP in am. News Editor input noted and appreciated. Continue to monitor on the medical psychiatric unit. Patient's case was presented to the [place] act court for involuntary outpatient commitment, and the patient was placed by the court into the involuntary outpatient commitment program. Justification for Cont. Inpt. Med changes. Risk for decompensation in less restrictive environment. Discharge Planning Pending psychiatric stabilization. Involuntary outpatient commitment once discharged. Request HC Surrog/Guard Advoc?: Yes Problem Qualifiers (1) Bipolar disorder: Qualified Codes: F31.2 - Bipolar disorder, current episode manic severe with psychotic features Osiel Davis MD Mar 29, 2017 08:06
[2017-03-29 08:13] LABS: BICARBONATE 26.3 MEQ/L (21.0-32.0); POTASSIUM 3.5 MEQ/L (3.5-5.1)
[2017-03-29] MEDS: DIVALPROEX SODIUM E.R. 250 MG TAB PO SCH (09:00)
[2017-03-29] MEDS: risperiDONE ODT 1 MG TAB PO SCH (09:00)
[2017-03-29] MEDS: THIOTHIXENE 1 MG CAP PO SCH ×2 (09:00→21:58)
[2017-03-29] MEDS: METOPROLOL TARTRATE 25 MG TAB PO SCH ×2 (09:00→21:57)
[2017-03-29] MEDS: REMOVE OLD PATCH T-DERMAL SCH (09:00)
[2017-03-29] MEDS: amLODIPine BESYLATE 5 MG TAB PO SCH (09:00)
[2017-03-29] MEDS: RIVAROXABAN 15 MG TAB PO SCH ×3 (09:00→21:00)
[2017-03-29] MEDS: LORazepam 0.5 MG TAB PO PRN (11:58)
--- NOTE | 2017-03-29 13:08 | HHI.PR ---
Subjective Remarks OOB in chair eating breakfast. Patients speech is calm. Objective Vital Signs Date Time Temp Pulse Resp B/P (MAP) Pulse Ox O2 Delivery O2 Flow Rate FiO2 03/29/17 05:18 97.6 83 18 164/75 (104) 98 03/28/17 17:43 97.1 75 18 128/73 (91) 99 I/O 03/28/17 03/28/17 03/28/17 03/29/17 03/29/17 03/29/17 07:00 15:00 23:00 07:00 15:00 23:00 Intake Total 120 ml 1443 ml 948 ml 240 ml Balance 120 ml 1443 ml 948 ml 240 ml Intake Oral 120 ml 600 ml 120 ml 240 ml IV Total 843 ml 828 ml # Voids 1 2 2 Result Diagram: 03/28/17 0657 03/29/17 0718 Objective Remarks GENERAL: Alert and calm SKIN: Warm and dry. HEAD: Normocephalic. EYES: No scleral icterus. No injection or drainage. NECK: Supple, trachea midline. No JVD or lymphadenopathy. CARDIOVASCULAR: Regular rate and rhythm without murmurs, gallops, or rubs. bilateral lower extremity edema 1+ RESPIRATORY: Breath sounds equal bilaterally. No accessory muscle use. GASTROINTESTINAL: Abdomen soft, non-tender, nondistended. MUSCULOSKELETAL: No cyanosis, or edema. BACK: Nontender without obvious deformity. No CVA tenderness. Medications and IVs Current Medications Medications (Trade) Dose Ordered Sig/Valentina Route Start Time Stop Time Status Last Admin (Norvasc) 5 mg DAILY PO 03/11/17 09:00 03/29/17 09:00 (D50w (Vial) Inj) 50 ml UNSCH PRN IV 03/10/17 12:15 (Glucagon Inj) 1 mg UNSCH PRN OTHER 03/10/17 12:15 (NovoLOG SUPPLEMENTAL SCALE) 1 ACHS SLIDING SCALE SQ 03/10/17 16:00 03/23/17 16:03 (Tylenol) 650 mg Q4H PRN PO 03/10/17 12:15 (Milk Of Magnesia Liq) 30 ml DAILY PRN PO 03/10/17 12:15 (Mag-Al Plus Susp Liq) 30 ml Q6H PRN PO 03/10/17 12:15 Miscellaneous Information 1 DAILY T-DERMAL 03/11/17 09:00 03/23/17 09:00 (Xarelto) 15 mg BID PO 03/10/17 21:00 03/31/17 20:59 03/29/17 11:58 (Ativan) 0.5 mg Q12H PRN PO 03/12/17 13:45 03/29/17 11:58 (Ativan Inj) 0.5 mg Q12H PRN IM 03/12/17 13:45 03/28/17 04:24 (Benadryl) 25 mg Q6H PRN PO 03/12/17 13:45 03/28/17 01:10 (Benadryl Inj) 25 mg Q6H PRN IM 03/12/17 13:45 03/14/17 07:13 (risperDAL M-TAB) 3 mg HS PO 03/12/17 21:00 03/28/17 20:29 (Xarelto) 20 mg DAILY PO 04/01/17 09:00 (Lopressor) 12.5 mg BID PO 03/21/17 09:00 03/29/17 09:00 (Pill Splitter) 1 ea UNSCH PRN OTHER 03/21/17 09:00 (Depakote Er) 1,250 mg DAILY PO 03/22/17 09:00 03/29/17 09:00 (risperDAL M-TAB) 3 mg DAILY PO 03/23/17 09:00 03/29/17 09:00 Sodium Chloride 1,000 ml @ 100 mls/hr Q10H IV 03/28/17 11:30 03/29/17 05:42 (Navane) 2 mg Q12HR PO 03/28/17 21:00 03/29/17 09:00 Assessment and Plan Problem List: (1) DVT (deep venous thrombosis) ICD Codes: I82.409 - Acute embolism and thrombosis of unspecified deep veins of unspecified lower extremity Status: Acute (2) Non compliance w medication regimen ICD Codes: Z91.14 - Patient's other noncompliance with medication regimen (3) Bipolar disorder ICD Codes: F31.9 - Bipolar disorder, unspecified Status: Acute (4) Cellulitis of lower extremity ICD Codes: L03.119 - Cellulitis of unspecified part of limb (5) Non-insulin dependent type 2 diabetes mellitus ICD Codes: E11.9 - Non-insulin dependent type 2 diabetes mellitus Status: Chronic (6) Hypertension ICD Codes: I10 - Hypertension Status: Acute Assessment and Plan 03/14/17 Bipolar disorder: Continues to be maniac. Speech is pressured and patient overly animated. Psych managing. DVT: Left lower extremity DVT. According to records second DVT last one 03/24. Edema is improved. On Xarelto Diabetes: BS AC and HS. Blood sugars have been mostly under 200mg/dl Will monitor Lower extremity cellulitis: On doxycycline HTN: B/p this AM will make changes if consistent. On metoprolol and norvasc. 03/16/17 Bipolar disorder: Continues to be maniac. Speech is less pressured. Psych managing. DVT: Left lower extremity DVT. According to records second DVT last one 03/24. Edema is improved. On Xarelto Diabetes: BS AC and HS. Blood sugars well controlled. Will monitor Lower extremity cellulitis: On doxycycline stop date on Monday HTN: B/p at 117/59 this AM. On metoprolol and norvasc. 03/21/17 Bipolar disorder: Speech is less pressured and easy to follow. Psych managing. DVT: Left lower extremity DVT. According to records second DVT last one 03/24. Edema is improved. On Xarelto Diabetes: BS AC and HS. Blood sugars well controlled all less than 200 overnight. Will monitor Lower extremity cellulitis: resolved and antibiotics complete HTN: B/p at 111/74 this AM. On metoprolol and norvasc. Will increase metoprolol to BID with heart rate in the 110-115. 03/23/17 Bipolar disorder: Speech is pressured and and very loud. Risperdal increased. Psych managing. DVT: Left lower extremity DVT. According to records second DVT last one 03/24. Edema is improved. On Xarelto Diabetes: BS AC and HS. Blood sugars well controlled all less than 200 overnight. Will monitor Lower extremity cellulitis: resolved and antibiotics complete HTN: B/p well controlled this AM. On metoprolol and norvasc. 03/28/17 Bipolar disorder: Psych managing. Hypercalcemia: Patient transferred to medical psych. Nephrology consulted. IVF 1/2 NS per nephrology note most likely prerenal azotemia. CA slightly improved today at 11.0. PTH low. GFR has declined this admission from 54 to 24. DVT: Left lower extremity DVT. On Xarelto Diabetes: BS AC and HS. Blood sugars well controlled all less than 200 overnight. Will monitor HTN: B/p well controlled this AM. On metoprolol and norvasc. 03/29/17 Hypercalcemia: Patient transferred to medical psych. Nephrology consulted. IVF 1/2 NS per nephrology note most likely prerenal azotemia. CA slightly improved today at 10.2 dowm from 11.0. PTH low. Bipolar disorder: Psych managing. Patient is alert and calm today. DVT: Left lower extremity DVT. On Xarelto Diabetes: BS AC and HS. Blood sugars well controlled all less than 200 overnight. Will monitor HTN: B/p slightly elevated this AM with IVF running will increase norvasc. I and the MONOMER RECOVERY SUPERVISOR have both examined this patient and reviewed this note and I agree with these findings an plan of care. Abdoulaye Barclay DO Problem Qualifiers (1) Bipolar disorder: Qualified Codes: F31.2 - Bipolar disorder, current episode manic severe with psychotic features Odette Khoury. MONOMER RECOVERY SUPERVISOR Mar 29, 2017 13:08
[2017-03-29] MEDS ORDERED: amLODIPine BESYLATE 5 MG TAB PO ONE (13:15)
[2017-03-29 18:01] VITALS: BP 115/64; PULSE 62; RESP 18; TEMP 97.5; O2SAT 98
[2017-03-29] MEDS: risperiDONE ODT 3 MG TAB PO SCH (21:57)
[2017-03-30] MEDS: SODIUM CHLOR 0.45% 1000 ML INJ 1,000 ML IV SCH ×3 (03:14→23:38)
[2017-03-30 05:43] VITALS: BP 126/69; PULSE 65; RESP 16; TEMP 97.6; O2SAT 98
[2017-03-30] MEDS: INSULIN ASPART SUPPLEMENTAL SCALE SQ SCH ×4 (08:00→20:40)
--- NOTE | 2017-03-30 08:10 | HHI.PYPN ---
Subjective Remarks Patient seen and examined. Chart reviewed. Case discussed with nursing staff. Patient no behavioral problem but remains somewhat hyperverbal at times. On my examination today, the patient is fairly calm. She does continue to exhibit some mild loosening of associations but does in general seem more relevant in conversation. Speech is no pressured. She is able to engage in a focused conversation regarding her medications, including the Risperdal Consta, which is due today. No SI/HI. No reported side effects from medications, although the patient is taking breakfast during my interview and does say that she thought some "food went down the wrong pipe." She is breathing and speaking easily. No other physical complaints. Review of Systems ROS Limitations: Poor Historian Except as stated in HPI: all other systems reviewed are Neg Objective Alert: Yes [place]: Person, Place, Date Mood: Calm Affect: Other (Fairly appropriate) Memory Intact: Comment (Not formally assessed) Hallucinations: Other (No hallucinations) Delusions: No Delusion Type: Other (no delusions) Suicidal: Ideation (No SI) Homicidal: Ideation (No HI) Insight/Judgment Poor Remarks No hand tremor, no cogwheeling, no dystonia, no dyskinesia noted. Grooming and hygiene fair at best. Labs Labs reviewed. I note that ionized calcium is elevated at 7.0. BMP ordered for this morning is pending. Vitals/IOs Vital Signs Date Time Temp Pulse Resp B/P (MAP) Pulse Ox O2 Delivery O2 Flow Rate FiO2 03/30/17 05:43 97.6 65 16 126/69 (88) 98 Intake and Output 03/30/17 03/30/17 03/31/17 08:00 16:00 00:00 Intake Total 1120 ml Balance 1120 ml Assessment & Plan Problem List: (1) Bipolar disorder ICD Codes: F31.9 - Bipolar disorder, unspecified Status: Acute (2) Non compliance w medication regimen ICD Codes: Z91.14 - Patient's other noncompliance with medication regimen Assessment & Plan Swallow eval. NPO pending outcome of eval. [Update: Recommending regular diet] . Risperdal Consta 25mg today and continue oral Risperdal supplementation as recommended. Continue Navane as ordered. Continue Depakote as ordered. Hospitalist financial services consultant input noted and appreciated. Continue other meds and care as ordered. Justification for Cont. Inpt. Risk for decompensation in less restrictive environment. Discharge Planning Pending psychiatric stabilization. Request HC Surrog/Guard Advoc?: Yes Problem Qualifiers (1) Bipolar disorder: Qualified Codes: F31.2 - Bipolar disorder, current episode manic severe with psychotic features Osiel Davis MD Mar 30, 2017 08:10
[2017-03-30] MEDS ORDERED: risperiDONE EXT REL INJ 25 MG/2 ML VIAL IM ONE (08:15)
[2017-03-30 08:33] LABS: BICARBONATE 25.2 MEQ/L (21.0-32.0); POTASSIUM 3.7 MEQ/L (3.5-5.1)
[2017-03-30] MEDS: THIOTHIXENE 1 MG CAP PO SCH ×2 (09:00→20:39)
[2017-03-30] MEDS: DIVALPROEX SODIUM E.R. 250 MG TAB PO SCH (09:00)
[2017-03-30] MEDS: METOPROLOL TARTRATE 25 MG TAB PO SCH ×2 (09:00→20:38)
[2017-03-30] MEDS: REMOVE OLD PATCH T-DERMAL SCH (09:00)
[2017-03-30] MEDS: RIVAROXABAN 15 MG TAB PO SCH ×2 (09:00→20:39)
[2017-03-30] MEDS: risperiDONE ODT 1 MG TAB PO SCH (09:00)
[2017-03-30] MEDS: amLODIPine BESYLATE 5 MG TAB PO SCH (09:00)
--- NOTE | 2017-03-30 09:27 | HHI.PR ---
Subjective Remarks OOB in chair eating breakfast. Patients speech is calm but adamant about being discharged. Objective Vital Signs Date Time Temp Pulse Resp B/P (MAP) Pulse Ox O2 Delivery O2 Flow Rate FiO2 03/30/17 05:43 97.6 65 16 126/69 (88) 98 03/29/17 18:01 97.5 62 18 115/64 (81) 98 I/O 03/29/17 03/29/17 03/29/17 03/30/17 03/30/17 03/30/17 06:59 14:59 22:59 06:59 14:59 22:59 Intake Total 948 ml 240 ml 240 ml 1120 ml Balance 948 ml 240 ml 240 ml 1120 ml Intake Oral 120 ml 240 ml 240 ml 120 ml IV Total 828 ml 1000 ml # Voids 2 2 1 Result Diagram: 03/28/17 0657 03/30/17 0730 Objective Remarks GENERAL: Alert and calm SKIN: Warm and dry. HEAD: Normocephalic. EYES: No scleral icterus. No injection or drainage. NECK: Supple, trachea midline. No JVD or lymphadenopathy. CARDIOVASCULAR: Regular rate and rhythm without murmurs, gallops, or rubs. bilateral lower extremity edema 1+ RESPIRATORY: Breath sounds equal bilaterally. No accessory muscle use. GASTROINTESTINAL: Abdomen soft, non-tender, nondistended. MUSCULOSKELETAL: No cyanosis, or edema. BACK: Nontender without obvious deformity. No CVA tenderness. Medications and IVs Current Medications Medications (Trade) Dose Ordered Sig/[place] Route Start Time Stop Time Status Last Admin (D50w (Vial) Inj) 50 ml UNSCH PRN IV 03/10/17 12:15 (Glucagon Inj) 1 mg UNSCH PRN OTHER 03/10/17 12:15 (NovoLOG SUPPLEMENTAL SCALE) 1 ACHS SLIDING SCALE SQ 03/10/17 16:00 03/23/17 16:03 (Tylenol) 650 mg Q4H PRN PO 03/10/17 12:15 (Milk Of Magnesia Liq) 30 ml DAILY PRN PO 03/10/17 12:15 (Mag-Al Plus Susp Liq) 30 ml Q6H PRN PO 03/10/17 12:15 Miscellaneous Information 1 DAILY T-DERMAL 03/11/17 09:00 03/23/17 09:00 (Xarelto) 15 mg BID PO 03/10/17 21:00 03/31/17 20:59 03/29/17 21:00 (Ativan) 0.5 mg Q12H PRN PO 03/12/17 13:45 03/29/17 11:58 (Ativan Inj) 0.5 mg Q12H PRN IM 03/12/17 13:45 03/28/17 04:24 (Benadryl) 25 mg Q6H PRN PO 03/12/17 13:45 03/28/17 01:10 (Benadryl Inj) 25 mg Q6H PRN IM 03/12/17 13:45 03/14/17 07:13 (risperDAL M-TAB) 3 mg HS PO 03/12/17 21:00 03/29/17 21:57 (Xarelto) 20 mg DAILY PO 04/01/17 09:00 (Lopressor) 12.5 mg BID PO 03/21/17 09:00 03/29/17 21:57 (Pill Splitter) 1 ea UNSCH PRN OTHER 03/21/17 09:00 (Depakote Er) 1,250 mg DAILY PO 03/22/17 09:00 03/29/17 09:00 (risperDAL M-TAB) 3 mg DAILY PO 03/23/17 09:00 03/29/17 09:00 Sodium Chloride 1,000 ml @ 100 mls/hr Q10H IV 03/28/17 11:30 03/30/17 03:14 (Norvasc) 10 mg DAILY PO 03/30/17 09:00 (Navane) 3 mg Q12HR PO 03/29/17 21:00 03/29/17 21:58 Assessment and Plan Problem List: (1) DVT (deep venous thrombosis) ICD Codes: I82.409 - Acute embolism and thrombosis of unspecified deep veins of unspecified lower extremity Status: Acute (2) Non compliance w medication regimen ICD Codes: Z91.14 - Patient's other noncompliance with medication regimen (3) Bipolar disorder ICD Codes: F31.9 - Bipolar disorder, unspecified Status: Acute (4) Cellulitis of lower extremity ICD Codes: L03.119 - Cellulitis of unspecified part of limb (5) Non-insulin dependent type 2 diabetes mellitus ICD Codes: E11.9 - Non-insulin dependent type 2 diabetes mellitus Status: Chronic (6) Hypertension ICD Codes: I10 - Hypertension Status: Acute Assessment and Plan 03/14/17 Bipolar disorder: Continues to be maniac. Speech is pressured and patient overly animated. Psych managing. DVT: Left lower extremity DVT. According to records second DVT last one 03/24. Edema is improved. On Xarelto Diabetes: BS AC and HS. Blood sugars have been mostly under 200mg/dl Will monitor Lower extremity cellulitis: On doxycycline HTN: B/p this AM will make changes if consistent. On metoprolol and norvasc. 03/16/17 Bipolar disorder: Continues to be maniac. Speech is less pressured. Psych managing. DVT: Left lower extremity DVT. According to records second DVT last one 03/24. Edema is improved. On Xarelto Diabetes: BS AC and HS. Blood sugars well controlled. Will monitor Lower extremity cellulitis: On doxycycline stop date on Monday HTN: B/p at 117/59 this AM. On metoprolol and norvasc. 03/21/17 Bipolar disorder: Speech is less pressured and easy to follow. Psych managing. DVT: Left lower extremity DVT. According to records second DVT last one 03/24. Edema is improved. On Xarelto Diabetes: BS AC and HS. Blood sugars well controlled all less than 200 overnight. Will monitor Lower extremity cellulitis: resolved and antibiotics complete HTN: B/p at 111/74 this AM. On metoprolol and norvasc. Will increase metoprolol to BID with heart rate in the 110-115. 03/23/17 Bipolar disorder: Speech is pressured and and very loud. Risperdal increased. Psych managing. DVT: Left lower extremity DVT. According to records second DVT last one 03/24. Edema is improved. On Xarelto Diabetes: BS AC and HS. Blood sugars well controlled all less than 200 overnight. Will monitor Lower extremity cellulitis: resolved and antibiotics complete HTN: B/p well controlled this AM. On metoprolol and norvasc. 03/28/17 Bipolar disorder: Psych managing. Hypercalcemia: Patient transferred to medical psych. Nephrology consulted. IVF 1/2 NS per nephrology note most likely prerenal azotemia. CA slightly improved today at 11.0. PTH low. GFR has declined this admission from 54 to 24. DVT: Left lower extremity DVT. On Xarelto Diabetes: BS AC and HS. Blood sugars well controlled all less than 200 overnight. Will monitor HTN: B/p well controlled this AM. On metoprolol and norvasc. 03/29/17 Hypercalcemia: Patient transferred to medical psych. Nephrology consulted. IVF 1/2 NS per nephrology note most likely prerenal azotemia. CA slightly improved today at 10.2 dowm from 11.0. PTH low. Bipolar disorder: Psych managing. Patient is alert and calm today. DVT: Left lower extremity DVT. On Xarelto Diabetes: BS AC and HS. Blood sugars well controlled all less than 200 overnight. Will monitor HTN: B/p slightly elevated this AM with IVF running will increase norvasc. 03/30/17 Hypercalcemia: Nephrology consulted and managing. IVF 1/2 NS per nephrology note most likely prerenal azotemia. CA improved today at 9.7. Ionized calcium at 7.0. PTH low. Bipolar disorder: Psych managing. Patient is alert and calm today. DVT: Left lower extremity DVT. On Xarelto Diabetes: BS AC and HS. Blood sugars well controlled. Will continue to monitor HTN: B/p well controlled at 126/69 with increase norvasc. I and the ASTROPHYSICS PROFESSOR have both examined this patient and reviewed this note and I agree with these findings an plan of care. Abdoulaye Barclay DO Problem Qualifiers (1) Bipolar disorder: Qualified Codes: F31.2 - Bipolar disorder, current episode manic severe with psychotic features Odette Khoury ASTROPHYSICS PROFESSOR Mar 30, 2017 09:27
--- NOTE | 2017-03-30 13:47 | HHI.NPPN ---
Subjective Renal Failure: Acute Interval History Sitting up in chair. Renal function is better. Eating/drinking well. (Verónica Lincoln) Objective Data Data Vital Signs Date Time Temp Pulse Resp B/P (MAP) Pulse Ox O2 Delivery O2 Flow Rate FiO2 03/30/17 05:43 97.6 65 16 126/69 (88) 98 03/29/17 18:01 97.5 62 18 115/64 (81) 98 (Verónica Lincoln) -: 03/28/17 0657 03/30/17 0730 Physical Exam General Appearance: Well Developed, Comfortable (Verónica Lincoln) Eyes Eye Exam: Pupils Equal (Verónica Lincoln) Pulmonary Resp Exam: Clear Bilaterally, Breath Sounds Equal (Verónica Lincoln) Cardiology CV Exam: Regular, Normal Sinus Rhythm (Verónica Lincoln) Gastrointestinal/Abdomen GI Exam: Soft, Non-Tender (Verónica Lincoln) Musculoskeletal MS Exam: Joints Intact, Normal Gait, Normal Tone, Good Strength (Verónica Lincoln) Integumentary Skin Exam: Clear, Warm, Dry (Verónica Lincoln) Extremeties Extremities Exam: Pedal Pulses Palpable, Trace Edema (Verónica Lincoln) Neurologic Neuro Exam: Alert, Awake, Oriented, Speech Clear, Moving All Extremities (Verónica Lincoln) Psychiatric Psych Exam: Appropriate Responses (Verónica Lincoln) Assessment/Plan Discussed Condition With: Patient Assessment Summary: KANCHAN/Acute Renal Failure Problem List: (1) Acute kidney injury ICD Codes: N17.9 - Acute kidney failure, unspecified Plan: Baseline creatinine of 1 KANCHAN due to to pre-renal azotemia. Renal function improving on IVF Tolerating oral fluids, taper off IVF over next 1-2 days Avoid nephrotoxic agents such as NSAIDs. She is non oliguric. (2) Hypercalcemia ICD Codes: E83.52 - Hypercalcemia Status: Resolved Plan: Workup in the past was negative, PTH is appropriately low, and so she does not have primary hyperparathyroidism. Continue IVF. Monitor. Currently improved. Avoid vitamin replacements. Avoid thiazide type diuretic. (3) Bipolar disorder ICD Codes: F31.9 - Bipolar disorder, unspecified Status: Acute Plan: management per psychiatry. It does not appear that she has been on [place]. [place] can cause both renal failure and hypercalcemia. Plan We will sign off at this time. Please call us if needed. (Verónica Lincoln) Plan patient was seen and examined. Agree with above assessment and plan. (Thor Andrew MD) Problem Qualifiers (1) Bipolar disorder: Qualified Codes: F31.12 - Bipolar disorder, current episode manic without psychotic features, moderate Verónica Lincoln Mar 30, 2017 13:47 Thor Andrew MD Mar 31, 2017 14:40
[2017-03-30 16:18] LABS: BACTERIA, URINE MOD /hpf; BLOOD, URINE SMALL (NEG); COMMENT (UR) CULTURE INDICATED; CULTURE IF INDICATED CULTURE INDICATED; GLUCOSE,URINE NEG (NEG); KETONE, URINE NEG (NEG); NITRITE,URINE POS (NEG); PH, URINE 6.5 (5.0-8.5); URINE COLOR LIGHT-YELLOW (YELLW/STRAW)
[2017-03-30 18:54] VITALS: BP 104/58; PULSE 68; RESP 16; TEMP 97.6; O2SAT 100
[2017-03-30] MEDS: risperiDONE ODT 3 MG TAB PO SCH (20:37)
[2017-03-30] MEDS: FAMOTIDINE 20 MG TAB PO SCH (20:38)
[2017-03-31 06:10] VITALS: BP 113/59; PULSE 71; RESP 18; TEMP 98.2; O2SAT 97
[2017-03-31] MEDS: INSULIN ASPART SUPPLEMENTAL SCALE SQ SCH ×4 (07:37→20:19)
[2017-03-31 07:51] LABS: MEAN CELL VOLUME 83.9 FL (80.0-100.0); MEAN CORPUSCULAR HEMOGLOBIN 28.2 PG (27.0-34.0); MEAN CORPUSCULAR HGB CONC 33.6 % (32.0-36.0); PLATELET COUNT 114 TH/MM3 (150-450); RED CELL DISTRIBUTION WIDTH 14.8 % (11.6-17.2); REVIEW FLAG FINAL; WHITE BLOOD COUNT 4.8 TH/MM3 (4.0-11.0)
[2017-03-31 08:21] LABS: BICARBONATE 23.8 MEQ/L (21.0-32.0); POTASSIUM 3.6 MEQ/L (3.5-5.1)
[2017-03-31] MEDS: REMOVE OLD PATCH T-DERMAL SCH (09:00)
[2017-03-31] MEDS: RIVAROXABAN 15 MG TAB PO SCH (09:34)
[2017-03-31] MEDS: THIOTHIXENE 1 MG CAP PO SCH (09:34)
[2017-03-31] MEDS: risperiDONE ODT 1 MG TAB PO SCH (09:34)
[2017-03-31] MEDS: METOPROLOL TARTRATE 25 MG TAB PO SCH ×2 (09:34→20:20)
[2017-03-31] MEDS: amLODIPine BESYLATE 5 MG TAB PO SCH (09:35)
[2017-03-31] MEDS: FAMOTIDINE 20 MG TAB PO SCH ×2 (09:35→20:20)
[2017-03-31] MEDS: DIVALPROEX SODIUM E.R. 250 MG TAB PO SCH (09:35)
--- NOTE | 2017-03-31 10:51 | HHI.PR ---
Subjective Remarks Patient was seen and examined in her room after breakfast. She cont to have pressured speech and is easily distracted. She did not mention D/C today. Objective Vital Signs Date Time Temp Pulse Resp B/P (MAP) Pulse Ox O2 Delivery O2 Flow Rate FiO2 03/31/17 06:10 98.2 71 18 113/59 (77) 97 03/30/17 18:54 97.6 68 16 104/58 (73) 100 I/O 03/30/17 03/30/17 03/30/17 03/31/17 03/31/17 03/31/17 07:00 15:00 23:00 07:00 15:00 23:00 Intake Total 1120 ml 3148 ml 1112 ml 480 ml Balance 1120 ml 3148 ml 1112 ml 480 ml Intake Oral 120 ml 240 ml 240 ml 480 ml IV Total 1000 ml 2908 ml 872 ml # Voids 1 3 Result Diagram: 03/31/17 0728 03/31/17 0720 Objective Remarks Exam reveals she is awake and alert and slightly manic but not agitated HEENT - AT NC Resp - CTA CV - RRR W/O rub or gallop Abd - soft and nontender MS - slight edema in BLE Neuro - Pressured speech but oriented Medications and IVs Current Medications Medications (Trade) Dose Ordered Sig/[place] Route Start Time Stop Time Status Last Admin (D50w (Vial) Inj) 50 ml UNSCH PRN IV 03/10/17 12:15 (Glucagon Inj) 1 mg UNSCH PRN OTHER 03/10/17 12:15 (NovoLOG SUPPLEMENTAL SCALE) 1 ACHS SLIDING SCALE SQ 03/10/17 16:00 03/23/17 16:03 (Tylenol) 650 mg Q4H PRN PO 03/10/17 12:15 (Milk Of Magnesia Liq) 30 ml DAILY PRN PO 03/10/17 12:15 (Mag-Al Plus Susp Liq) 30 ml Q6H PRN PO 03/10/17 12:15 Miscellaneous Information 1 DAILY T-DERMAL 03/11/17 09:00 03/23/17 09:00 (Xarelto) 15 mg BID PO 03/10/17 21:00 03/31/17 20:59 03/31/17 09:34 (Ativan) 0.5 mg Q12H PRN PO 03/12/17 13:45 03/29/17 11:58 (Ativan Inj) 0.5 mg Q12H PRN IM 03/12/17 13:45 03/28/17 04:24 (Benadryl) 25 mg Q6H PRN PO 03/12/17 13:45 03/28/17 01:10 (Benadryl Inj) 25 mg Q6H PRN IM 03/12/17 13:45 03/14/17 07:13 (risperDAL M-TAB) 3 mg HS PO 03/12/17 21:00 03/30/17 20:37 (Xarelto) 20 mg DAILY PO 04/01/17 09:00 (Lopressor) 12.5 mg BID PO 03/21/17 09:00 03/31/17 09:34 (Pill Splitter) 1 ea UNSCH PRN OTHER 03/21/17 09:00 (Depakote Er) 1,250 mg DAILY PO 03/22/17 09:00 03/31/17 09:35 (risperDAL M-TAB) 3 mg DAILY PO 03/23/17 09:00 03/31/17 09:34 Sodium Chloride 1,000 ml @ 50 mls/hr Q20H IV 03/28/17 11:30 03/30/17 23:38 (Norvasc) 10 mg DAILY PO 03/30/17 09:00 03/31/17 09:35 (Navane) 3 mg Q12HR PO 03/29/17 21:00 03/31/17 09:34 (Pepcid) 10 mg BID PO 03/30/17 21:00 03/31/17 09:35 Assessment and Plan Problem List: (1) Acute renal failure ICD Codes: N17.9 - Acute kidney failure, unspecified Status: Acute Plan: F/U renal recommendations as renal function is improved on IVF (2) Bipolar disorder ICD Codes: F31.9 - Bipolar disorder, unspecified Status: Acute Plan: 03/14/17 Bipolar disorder: Continues to be maniac. Speech is pressured and patient overly animated. Psych managing. DVT: Left lower extremity DVT. According to records second DVT last one 03/24. Edema is improved. On Xarelto Diabetes: BS AC and HS. Blood sugars have been mostly under 200mg/dl Will monitor Lower extremity cellulitis: On doxycycline HTN: B/p this AM will make changes if consistent. On metoprolol and norvasc. 03/16/17 Bipolar disorder: Continues to be maniac. Speech is less pressured. Psych managing. DVT: Left lower extremity DVT. According to records second DVT last one 03/24. Edema is improved. On Xarelto Diabetes: BS AC and HS. Blood sugars well controlled. Will monitor Lower extremity cellulitis: On doxycycline stop date on Monday HTN: B/p at 117/59 this AM. On metoprolol and norvasc. 03/21/17 Bipolar disorder: Speech is less pressured and easy to follow. Psych managing. DVT: Left lower extremity DVT. According to records second DVT last one 03/24. Edema is improved. On Xarelto Diabetes: BS AC and HS. Blood sugars well controlled all less than 200 overnight. Will monitor Lower extremity cellulitis: resolved and antibiotics complete HTN: B/p at 111/74 this AM. On metoprolol and norvasc. Will increase metoprolol to BID with heart rate in the 110-115. 03/23/17 Bipolar disorder: Speech is pressured and and very loud. Risperdal increased. Psych managing. DVT: Left lower extremity DVT. According to records second DVT last one 03/24. Edema is improved. On Xarelto Diabetes: BS AC and HS. Blood sugars well controlled all less than 200 overnight. Will monitor Lower extremity cellulitis: resolved and antibiotics complete HTN: B/p well controlled this AM. On metoprolol and norvasc. 03/28/17 Bipolar disorder: Psych managing. Hypercalcemia: Patient transferred to medical psych. Nephrology consulted. IVF 1/2 NS per nephrology note most likely prerenal azotemia. CA slightly improved today at 11.0. PTH low. GFR has declined this admission from 54 to 24. DVT: Left lower extremity DVT. On Xarelto Diabetes: BS AC and HS. Blood sugars well controlled all less than 200 overnight. Will monitor HTN: B/p well controlled this AM. On metoprolol and norvasc. 03/29/17 Hypercalcemia: Patient transferred to medical psych. Nephrology consulted. IVF 1/2 NS per nephrology note most likely prerenal azotemia. CA slightly improved today at 10.2 dowm from 11.0. PTH low. Bipolar disorder: Psych managing. Patient is alert and calm today. DVT: Left lower extremity DVT. On Xarelto Diabetes: BS AC and HS. Blood sugars well controlled all less than 200 overnight. Will monitor HTN: B/p slightly elevated this AM with IVF running will increase norvasc. 03/30/17 Hypercalcemia: Nephrology consulted and managing. IVF 1/2 NS per nephrology note most likely prerenal azotemia. CA improved today at 9.7. Ionized calcium at 7.0. PTH low. Bipolar disorder: Psych managing. Patient is alert and calm today. DVT: Left lower extremity DVT. On Xarelto Diabetes: BS AC and HS. Blood sugars well controlled. Will continue to monitor HTN: B/p well controlled at 126/69 with increase norvasc. 03/31/17 Cont Psych intervention and medications. HTN and T2DM now well controlled. F/U renal recommendations for resolving KANCHAN and resultant hypercalcemia. I and the PA have both examined this patient and reviewed this note and I agree with these findings an plan of care. Abdoulaye Barclay DO Discussed Condition With Patient Problem Qualifiers (1) Acute renal failure: Qualified Codes: N17.9 - Acute kidney failure, unspecified (2) Bipolar disorder: Qualified Codes: F31.12 - Bipolar disorder, current episode manic without psychotic features, moderate Robby Arana Mar 31, 2017 10:51
--- NOTE | 2017-03-31 11:02 | HHI.PYPN ---
Subjective Remarks Patient seen and examined. Chart reviewed. Case discussed with nursing staff. No significant behavioral issues overnight. Patient remains little bit hyperverbal and rambling. On my examination today, patient says that I am "the baby C against the big C [referring to Dr. Ca]. You can do electrolysis [ ECT?] on me." We discuss patient's medications, and patient points out that her Depakote was started "under the [place] administration" and this leads inexplicably to a discussion about the [place] and 03/20. Denies side effects from medications. No physical complaints. Review of Systems ROS Limitations: Poor Historian Except as stated in HPI: all other systems reviewed are Neg Objective Alert: Yes [place]: Person, Place, Date Mood: Calm Affect: Appropriate Memory Intact: Comment (Not formally assessed) Hallucinations: Other (no AVH) Delusions: No Delusion Type: Other (no delusions) Suicidal: Ideation (No SI) Homicidal: Ideation (No HI) Insight/Judgment Poor Remarks Some ongoing loosening of associations. Grooming and hygiene fair to poor at best. No motoric abnormalities appreciated. Labs Test 03/30/17 14:30 03/31/17 07:20 03/31/17 07:28 Urine Color LIGHT-YELLOW Urine Turbidity CLOUDY Urine pH 6.5 Urine Specific [place] 1.013 Urine Protein 30 mg/dL Urine Glucose (UA) NEG mg/dL Urine Ketones NEG mg/dL Urine Occult Blood SMALL Urine Nitrite POS Urine Bilirubin NEG Urine Urobilinogen LESS THAN 2.0 MG/DL Urine Leukocyte Esterase LARGE Urine RBC 26 /hpf Urine WBC /hpf Urine WBC Clumps OCC Urine Bacteria MOD /hpf Microscopic Urinalysis Comment CULTURE INDICATED Blood Urea Nitrogen 30 MG/DL Creatinine 1.67 MG/DL Random Glucose 91 MG/DL Calcium Level 9.8 MG/DL Sodium Level 140 MEQ/L Potassium Level 3.6 MEQ/L Chloride Level 109 MEQ/L Carbon Dioxide Level 23.8 MEQ/L Anion Gap 7 MEQ/L Estimat Glomerular Filtration Rate 31 ML/MIN White Blood Count 4.8 TH/MM3 Red Blood Count 3.70 MIL/MM3 Hemoglobin 10.4 GM/DL Hematocrit 31.0 % Mean Corpuscular Volume 83.9 FL Mean Corpuscular Hemoglobin 28.2 PG Mean Corpuscular Hemoglobin Concent 33.6 % Red Cell Distribution Width 14.8 % Platelet Count 114 TH/MM3 Mean Platelet Volume 9.5 FL Date/Time Source Procedure Growth Status 03/30/17 14:30 Urine Clean Catch Urine Culture Pending Received Labs reviewed. Anemia fairly stable and within historical range. GFR continues slowly to improve. Urine culture pending and patient does not report any symptoms of UTI. Vitals/IOs Vital Signs Date Time Temp Pulse Resp B/P (MAP) Pulse Ox O2 Delivery O2 Flow Rate FiO2 03/31/17 06:10 98.2 71 18 113/59 (77) 97 Intake and Output 03/31/17 03/31/17 04/01/17 08:00 16:00 00:00 Intake Total 1112 ml 480 ml Balance 1112 ml 480 ml Assessment & Plan Problem List: (1) Bipolar disorder ICD Codes: F31.9 - Bipolar disorder, unspecified Status: Acute (2) Non compliance w medication regimen ICD Codes: Z91.14 - Patient's other noncompliance with medication regimen Assessment & Plan Titrate Navane to 5 mg twice daily. Continue Depakote and oral Risperdal supplementing Risperdal Consta as ordered. Patient will require oral supplementation of long-acting injectable Risperdal through approximately 04/06. Hospitalist input noted and appreciated. Follow up urine culture results. Continue to monitor on the inpatient unit. Continue other medications and care as ordered. Justification for Cont. Inpt. Med changes. High risk for decompensation in less restrictive environment. Discharge Planning Pending psychiatric stabilization. Request HC Surrog/Guard Advoc?: Yes Problem Qualifiers (1) Bipolar disorder: Qualified Codes: F31.12 - Bipolar disorder, current episode manic without psychotic features, moderate Osiel Davis MD Mar 31, 2017 11:02
[2017-03-31 18:57] VITALS: BP 109/54; PULSE 75; RESP 18; TEMP 97.1; O2SAT 98
[2017-03-31] MEDS: risperiDONE ODT 3 MG TAB PO SCH (20:19)
[2017-03-31] MEDS: THIOTHIXENE 5 MG CAP PO SCH (20:20)
[2017-03-31 20:22] VITALS: BP 111/64; PULSE 84
[2017-04-01] MEDS: SODIUM CHLOR 0.45% 1000 ML INJ 1,000 ML IV SCH (02:25)
[2017-04-01 05:40] VITALS: BP 156/67; PULSE 91; RESP 18; TEMP 97.4; O2SAT 97
[2017-04-01] MEDS: INSULIN ASPART SUPPLEMENTAL SCALE SQ SCH ×4 (08:00→21:00)
[2017-04-01] MEDS: risperiDONE ODT 1 MG TAB PO SCH (08:24)
[2017-04-01] MEDS: DIVALPROEX SODIUM E.R. 250 MG TAB PO SCH (08:25)
[2017-04-01] MEDS: METOPROLOL TARTRATE 25 MG TAB PO SCH ×2 (08:25→22:11)
[2017-04-01] MEDS: amLODIPine BESYLATE 5 MG TAB PO SCH (08:25)
[2017-04-01] MEDS: THIOTHIXENE 5 MG CAP PO SCH ×2 (08:25→22:14)
[2017-04-01] MEDS: RIVAROXABAN 20 MG TAB PO SCH (08:31)
[2017-04-01] MEDS: LORazepam 0.5 MG TAB PO PRN ×2 (08:31→22:12)
[2017-04-01] MEDS: diphenhydrAMINE HCL 25 MG CAP PO PRN (08:31)
[2017-04-01] MEDS: FAMOTIDINE 20 MG TAB PO SCH ×2 (08:31→22:14)
[2017-04-01] MEDS: REMOVE OLD PATCH T-DERMAL SCH (09:00)
--- NOTE | 2017-04-01 10:05 | HHI.PR ---
Subjective Remarks more alert today but resistant to taking meds as usual Objective Vital Signs Date Time Temp Pulse Resp B/P (MAP) Pulse Ox O2 Delivery O2 Flow Rate FiO2 04/01/17 05:40 97.4 91 18 156/67 (96) 97 03/31/17 20:22 84 111/64 (80) 03/31/17 18:57 97.1 75 18 109/54 (72) 98 I/O 03/31/17 03/31/17 03/31/17 04/01/17 04/01/17 04/01/17 07:00 15:00 23:00 07:00 15:00 23:00 Intake Total 1112 ml 720 ml 1804 ml Balance 1112 ml 720 ml 1804 ml Intake Oral 240 ml 720 ml 1200 ml IV Total 872 ml 604 ml # Voids 3 3 7 # Bowel Movements 1 Result Diagram: 03/31/1728 03/31/17 0720 Objective Remarks GENERAL: Well-nourished, well-developed patient. SKIN: Warm and dry. HEAD: Normocephalic. EYES: No scleral icterus. No injection or drainage. NECK: Supple, trachea midline. No JVD or lymphadenopathy. CARDIOVASCULAR: Regular rate and rhythm without murmurs, gallops, or rubs. RESPIRATORY: Breath sounds equal bilaterally. No accessory muscle use. GASTROINTESTINAL: Abdomen soft, non-tender, nondistended. EXTREMITIES: No cyanosis,l leg edema and erythema reduced NEUROLOGICAL: Awake, alert, Non-focal.confused Medications and IVs Inpatient Medications Acetaminophen (Tylenol) 650 mg Q4H PRN PO Pain 1-5 or Temp >101F; Start at 12:15 Al Hydrox/Mg Hydrox/Simethicone (Mag-Al Plus Susp Liq) 30 ml Q6H PRN PO DYSPEPSIA; Start 03/10/17 at 12:15 Amlodipine Besylate (Norvasc) 5 mg ONCE ONCE PO Last administered on t 13:15; Start 03/29/17 at 13:15; Stop 03/29/17 at 13:33; Status DC Dextrose (D50w (Vial) Inj) 50 ml UNSCH PRN IV HYPOGLYCEMIA-SEE COMMENTS; Start 03/10/17 at 12:15 Diphenhydramine HCl (Benadryl Inj) 25 mg Q6H PRN IM For mild anxiety and/or EPS Last administered on 03/14/17 07:13; Start 03/12/17 at 13:45 Diphenhydramine HCl (Benadryl) 25 mg Q6H PRN PO For mild anxiety and/or EPS Last administered on 04/01/17 08:31; Start 03/12/17 at 13:45 Divalproex Sodium (Depakote Er) 250 mg ONCE ONCE PO Last administered on 11:15; Start 03/21/17 at 11:15; Stop 03/21/17 at 11:21; Status DC Doxycycline Hyclate (Vibramycin) 100 mg BID PO Last administered on 03/20/17 09:32; Start 03/10/17 at 21:00; Stop 03/20/17 at 20:59; Status DC Famotidine (Pepcid) 10 mg BID PO Last administered on 04/01/17 08:31; Start at 21:00 Glucagon (Glucagon Inj) 1 mg UNSCH PRN OTHER HYPOGLYCEMIA-SEE COMMENTS; Start 03/10/17 at 12:15 Insulin Aspart (NovoLOG SUPPLEMENTAL SCALE) 1 ACHS SLIDING SCALE SQ Last administered on 03/23/17 16:03; Start 03/10/17 at 16:00 Lorazepam (Ativan Inj) 0.5 mg Q12H PRN IM MODERATE TO SEVERE ANXIETY Last administered on 03/28/17 04:24; Start 03/12/17 at 13:45 Lorazepam (Ativan) 0.5 mg Q12H PRN PO MODERATE TO SEVERE ANXIETY Last administered on 04/01/17 08:31; Start 03/12/17 at 13:45 Magnesium Hydroxide (Milk Of Magnesia Liq) 30 ml DAILY PRN PO CONSTIPATION; Start 03/10/17 at 12:15 Metoprolol Tartrate (Lopressor) 12.5 mg BID PO Last administered on 04/01/17 08:25; Start 03/21/17 at 09:00 Miscellaneous (Pill Splitter) 1 ea UNSCH PRN OTHER SEE LABEL COMMENTS; Start at 09:00 Miscellaneous Information 1 DAILY T-DERMAL Last administered on 03/23/17 09:00 ; Start 03/11/17 at 09:00 Nicotine (Habitrol 21 Mg Patch.24 Hr) 1 patch DAILY T-DERMAL ; Start 03/11/17 at 09:00; Stop 03/21/17 at 08:09; Status DC Nitrofurantoin Macrocrystals (Macrobid) 100 mg BID PO Last administered on 09:00; Start 03/10/17 at 13:30; Stop 03/16/17 at 11:04; Status DC Olanzapine (ZyPREXA INJ) 10 mg STAT STAT IM Last administered on 03/11/17 17: 30; Start 03/11/17 at 17:23; Stop 03/11/17 at 17:26; Status DC Olanzapine (ZyPREXA) 20 mg HS PO ; Start 03/10/17 at 21:00; Stop 03/10/17 at 21:00 ; Status DC Risperidone (RisperDAL CONSTA INJ) 25 mg ONCE ONCE IM Last administered on 08:15; Start 03/30/17 at 08:15; Stop 03/30/17 at 08:16; Status DC Risperidone (risperDAL M-TAB) 3 mg DAILY PO Last administered on 04/01/17 08: 24; Start 03/23/17 at 09:00 Rivaroxaban (Xarelto) 20 mg DAILY PO Last administered on 04/01/17 08:31; Start 04/01/17 at 09:00 Sodium Chloride 1,000 ml @ 50 mls/hr Q20H IV Last administered on 04/01/17 02 :25; Start 03/28/17 at 11:30 Thiothixene (Navane) 5 mg Q12HR PO Last administered on 04/01/17 08:25; Start 03/31/17 at 21:00 Ziprasidone (Geodon Inj) 10 mg NOW ONCE IM ; Start 03/11/17 at 23:30; Stop at 23:31; Status DC Assessment and Plan Problem List: (1) Hypertension ICD Codes: I10 - Hypertension Status: Acute Plan: currently controlled with norvasc (2) DVT (deep venous thrombosis) ICD Codes: I82.409 - Acute embolism and thrombosis of unspecified deep veins of unspecified lower extremity Status: Chronic Plan: xarelto Assessment and Plan hydration improved still resistant to taking medicine will follow lab closely Discussed Condition With pt and nursing Abdoulaye Barclay DO Apr 01, 2017 10:05
--- NOTE | 2017-04-01 12:33 | HHI.PYPN ---
Subjective Remarks Patient seen and case discussed with nurse. Little change in her behavior. Requires assistance for activities of daily living. Inappropriate mood and cognitive issues remain. Review of Systems Except as stated in HPI: all other systems reviewed are Neg Objective Alert: Yes [place]: Person, Place, Date Mood: Calm Affect: Appropriate Memory Intact: Comment (Not formally assessed) Hallucinations: Other (no AVH) Delusions: No Delusion Type: Other (no delusions) Suicidal: Ideation (No SI) Homicidal: Ideation (No HI) Insight/Judgment Impaired Labs Date/Time Source Procedure Growth Status 03/30/17 14:30 Urine Clean Catch Urine Culture - Final Klebsiella Pneumoniae Complete Vitals/IOs Vital Signs Date Time Temp Pulse Resp B/P (MAP) Pulse Ox O2 Delivery O2 Flow Rate FiO2 04/01/17 05:40 97.4 91 18 156/67 (96) 97 Intake and Output 04/01/17 04/01/17 04/02/17 08:00 16:00 00:00 Intake Total 2044 ml Balance 2044 ml Assessment & Plan Problem List: (1) Bipolar disorder ICD Codes: F31.9 - Bipolar disorder, unspecified Status: Acute (2) Non compliance w medication regimen ICD Codes: Z91.14 - Patient's other noncompliance with medication regimen Assessment & Plan Estimated LOS: days continue current medication and evaluate for efficacy. Justification for Cont. Inpt. Likely to decompensate at lower level of care. Request HC Surrog/Guard Advoc?: Yes Problem Qualifiers (1) Bipolar disorder: Qualified Codes: F31.73 - Bipolar disorder, in partial remission, most recent episode manic Juaquin Poe MD Apr 01, 2017 12:33
[2017-04-01 19:36] VITALS: BP 100/58; PULSE 93; RESP 20; TEMP 97.5; O2SAT 98
[2017-04-01] MEDS: risperiDONE ODT 3 MG TAB PO SCH (22:10)
[2017-04-02] MEDS: SODIUM CHLOR 0.45% 1000 ML INJ 1,000 ML IV SCH (03:14)
[2017-04-02 06:32] VITALS: BP 95/51; PULSE 56; RESP 16; TEMP 97.7; O2SAT 96
[2017-04-02] MEDS: INSULIN ASPART SUPPLEMENTAL SCALE SQ SCH ×4 (08:00→21:00)
[2017-04-02] MEDS: THIOTHIXENE 5 MG CAP PO SCH ×2 (08:56→21:42)
[2017-04-02] MEDS: FAMOTIDINE 20 MG TAB PO SCH ×2 (08:56→21:41)
[2017-04-02] MEDS: risperiDONE ODT 1 MG TAB PO SCH (08:56)
[2017-04-02] MEDS: METOPROLOL TARTRATE 25 MG TAB PO SCH ×2 (08:58→21:42)
[2017-04-02] MEDS: amLODIPine BESYLATE 5 MG TAB PO SCH (09:00)
[2017-04-02] MEDS: REMOVE OLD PATCH T-DERMAL SCH (09:00)
[2017-04-02] MEDS: RIVAROXABAN 20 MG TAB PO SCH (09:00)
[2017-04-02] MEDS: DIVALPROEX SODIUM E.R. 250 MG TAB PO SCH (09:00)
[2017-04-02 10:36] LABS: AUTOMATED NEUTROPHIL # 2.6 TH/MM3 (1.8-7.7); EOSINOPHIL # 0.1 TH/MM3 (0-0.4); EOSINOPHIL % 1.8 % (0.0-4.0); HEMATOCRIT 33.1 % (35.0-46.0); HEMO FLAGS DIFF FINAL; LYMPH % 26.9 % (9.0-44.0); LYMPHOCYTE # 1.3 TH/MM3 (1.0-4.8); MEAN CELL VOLUME 84.8 FL (80.0-100.0); MEAN CORPUSCULAR HEMOGLOBIN 27.2 PG (27.0-34.0); MEAN CORPUSCULAR HGB CONC 32.1 % (32.0-36.0); MONO % 15.1 % (0.0-8.0); NEUT % 55.2 % (16.0-70.0); PLATELET COUNT 167 TH/MM3 (150-450); RED CELL DISTRIBUTION WIDTH 15.1 % (11.6-17.2); WHITE BLOOD COUNT 4.7 TH/MM3 (4.0-11.0)
[2017-04-02 10:48] LABS: BICARBONATE 24.5 MEQ/L (21.0-32.0); POTASSIUM 3.9 MEQ/L (3.5-5.1)
--- NOTE | 2017-04-02 14:45 | HHI.PR ---
Subjective Remarks more alert today but again resistant to taking meds finally persuaded Objective Vital Signs Date Time Temp Pulse Resp B/P (MAP) Pulse Ox O2 Delivery O2 Flow Rate FiO2 04/02/17 06:32 97.7 56 16 95/51 (66) 96 04/01/17 19:36 97.5 93 20 100/58 (72) 98 I/O 04/01/17 04/01/17 04/01/17 04/02/17 04/02/17 04/02/17 07:00 15:00 23:00 07:00 15:00 23:00 Intake Total 1804 ml 240 ml 820 ml 1310 ml Balance 1804 ml 240 ml 820 ml 1310 ml Intake Oral 1200 ml 240 ml 300 ml 1310 ml IV Total 604 ml 520 ml # Voids 7 3 4 Result Diagram: 04/02/1795304/02/17953 Objective Remarks GENERAL: Well-nourished, well-developed patient. SKIN: Warm and dry. HEAD: Normocephalic. EYES: No scleral icterus. No injection or drainage. NECK: Supple, trachea midline. No JVD or lymphadenopathy. CARDIOVASCULAR: Regular rate and rhythm without murmurs, gallops, or rubs. RESPIRATORY: Breath sounds equal bilaterally. No accessory muscle use. GASTROINTESTINAL: Abdomen soft, non-tender, nondistended. EXTREMITIES: No cyanosis,l leg edema and erythema reduced NEUROLOGICAL: Awake, alert, Non-focal.confused Medications and IVs Inpatient Medications Acetaminophen (Tylenol) 650 mg Q4H PRN PO Pain 1-5 or Temp >101F; Start at 12:15 Al Hydrox/Mg Hydrox/Simethicone (Mag-Al Plus Susp Liq) 30 ml Q6H PRN PO DYSPEPSIA; Start 03/10/17 at 12:15 Amlodipine Besylate (Norvasc) 5 mg ONCE ONCE PO Last administered on t 13:15; Start 03/29/17 at 13:15; Stop 03/29/17 at 13:33; Status DC Dextrose (D50w (Vial) Inj) 50 ml UNSCH PRN IV HYPOGLYCEMIA-SEE COMMENTS; Start 03/10/17 at 12:15 Diphenhydramine HCl (Benadryl Inj) 25 mg Q6H PRN IM For mild anxiety and/or EPS Last administered on 03/14/17 07:13; Start 03/12/17 at 13:45 Diphenhydramine HCl (Benadryl) 25 mg Q6H PRN PO For mild anxiety and/or EPS Last administered on 04/01/17 08:31; Start 03/12/17 at 13:45 Divalproex Sodium (Depakote Er) 250 mg ONCE ONCE PO Last administered on 11:15; Start 03/21/17 at 11:15; Stop 03/21/17 at 11:21; Status DC Doxycycline Hyclate (Vibramycin) 100 mg BID PO Last administered on 03/20/17 09:32; Start 03/10/17 at 21:00; Stop 03/20/17 at 20:59; Status DC Famotidine (Pepcid) 10 mg BID PO Last administered on 04/02/17 08:56; Start at 21:00 Glucagon (Glucagon Inj) 1 mg UNSCH PRN OTHER HYPOGLYCEMIA-SEE COMMENTS; Start 03/10/17 at 12:15 Insulin Aspart (NovoLOG SUPPLEMENTAL SCALE) 1 ACHS SLIDING SCALE SQ Last administered on 03/23/17 16:03; Start 03/10/17 at 16:00 Lorazepam (Ativan Inj) 0.5 mg Q12H PRN IM MODERATE TO SEVERE ANXIETY Last administered on 03/28/17 04:24; Start 03/12/17 at 13:45 Lorazepam (Ativan) 0.5 mg Q12H PRN PO MODERATE TO SEVERE ANXIETY Last administered on 04/01/17 22:12; Start 03/12/17 at 13:45 Magnesium Hydroxide (Milk Of Magnesia Liq) 30 ml DAILY PRN PO CONSTIPATION; Start 03/10/17 at 12:15 Metoprolol Tartrate (Lopressor) 12.5 mg BID PO Last administered on 04/02/17 08:58; Start 03/21/17 at 09:00 Miscellaneous (Pill Splitter) 1 ea UNSCH PRN OTHER SEE LABEL COMMENTS; Start at 09:00 Miscellaneous Information 1 DAILY T-DERMAL Last administered on 03/23/17 09:00 ; Start 03/11/17 at 09:00 Nicotine (Habitrol 21 Mg Patch.24 Hr) 1 patch DAILY T-DERMAL ; Start 03/11/17 at 09:00; Stop 03/21/17 at 08:09; Status DC Nitrofurantoin Macrocrystals (Macrobid) 100 mg BID PO Last administered on 09:00; Start 03/10/17 at 13:30; Stop 03/16/17 at 11:04; Status DC Olanzapine (ZyPREXA INJ) 10 mg STAT STAT IM Last administered on 03/11/17 17: 30; Start 03/11/17 at 17:23; Stop 03/11/17 at 17:26; Status DC Olanzapine (ZyPREXA) 20 mg HS PO ; Start 03/10/17 at 21:00; Stop 03/10/17 at 21:00 ; Status DC Risperidone (RisperDAL CONSTA INJ) 25 mg ONCE ONCE IM Last administered on 08:15; Start 03/30/17 at 08:15; Stop 03/30/17 at 08:16; Status DC Risperidone (risperDAL M-TAB) 3 mg DAILY PO Last administered on 04/02/17 08: 56; Start 03/23/17 at 09:00 Rivaroxaban (Xarelto) 20 mg DAILY PO Last administered on 04/01/17 08:31; Start 04/01/17 at 09:00 Sodium Chloride 1,000 ml @ 50 mls/hr Q20H IV Last administered on 04/02/17 03 :14; Start 03/28/17 at 11:30 Thiothixene (Navane) 5 mg Q12HR PO Last administered on 04/02/17 08:56; Start 03/31/17 at 21:00 Ziprasidone (Geodon Inj) 10 mg NOW ONCE IM ; Start 03/11/17 at 23:30; Stop at 23:31; Status DC Assessment and Plan Problem List: (1) Hypertension ICD Codes: I10 - Hypertension Status: Acute Plan: currently controlled with norvasc (2) DVT (deep venous thrombosis) ICD Codes: I82.409 - Acute embolism and thrombosis of unspecified deep veins of unspecified lower extremity Status: Chronic Plan: xarelto Assessment and Plan hydration encouraged will be a problem if she doesnt take her psych meds still resistant to taking medicine will follow lab closely Abdoulaye Barclay DO Apr 02, 2017 14:45
[2017-04-02 17:46] VITALS: BP 125/72; PULSE 66; RESP 18; TEMP 97.4; O2SAT 99
--- NOTE | 2017-04-02 18:19 | HHI.PYPN ---
Subjective Remarks Patient seen, chart reviewed and case discussed with nurse. Patient reclusive today, minimally verbal, less energy and motivation. Review of Systems Except as stated in HPI: all other systems reviewed are Neg Objective Alert: Yes [place]: Person, Place, Date Mood: Calm Affect: Appropriate Memory Intact: Comment (Not formally assessed) Hallucinations: Other (no AVH) Delusions: No Delusion Type: Other (no delusions) Suicidal: Ideation (No SI) Homicidal: Ideation (No HI) Insight/Judgment Impaired Labs Test 04/02/17 09:54 White Blood Count 4.7 TH/MM3 Red Blood Count 3.90 MIL/MM3 Hemoglobin 10.6 GM/DL Hematocrit 33.1 % Mean Corpuscular Volume 84.8 FL Mean Corpuscular Hemoglobin 27.2 PG Mean Corpuscular Hemoglobin Concent 32.1 % Red Cell Distribution Width 15.1 % Platelet Count 167 TH/MM3 Mean Platelet Volume 9.2 FL Neutrophils (%) (Auto) 55.2 % Lymphocytes (%) (Auto) 26.9 % Monocytes (%) (Auto) 15.1 % Eosinophils (%) (Auto) 1.8 % Basophils (%) (Auto) 1.0 % Neutrophils # (Auto) 2.6 TH/MM3 Lymphocytes # (Auto) 1.3 TH/MM3 Monocytes # (Auto) 0.7 TH/MM3 Eosinophils # (Auto) 0.1 TH/MM3 Basophils # (Auto) 0.0 TH/MM3 CBC Comment DIFF FINAL Differential Comment Blood Urea Nitrogen 22 MG/DL Creatinine 1.75 MG/DL Random Glucose 133 MG/DL Calcium Level 9.8 MG/DL Sodium Level 136 MEQ/L Potassium Level 3.9 MEQ/L Chloride Level 104 MEQ/L Carbon Dioxide Level 24.5 MEQ/L Anion Gap 8 MEQ/L Estimat Glomerular Filtration Rate 29 ML/MIN Date/Time Source Procedure Growth Status 03/30/17 14:30 Urine Clean Catch Urine Culture - Final Klebsiella Pneumoniae Complete Vitals/IOs Vital Signs Date Time Temp Pulse Resp B/P (MAP) Pulse Ox O2 Delivery O2 Flow Rate FiO2 04/02/17 17:46 97.4 66 18 125/72 (89) 99 Intake and Output 04/02/17 04/02/17 04/03/17 08:00 16:00 00:00 Intake Total 1310 ml 480 ml Balance 1310 ml 480 ml Assessment & Plan Problem List: (1) Bipolar disorder ICD Codes: F31.9 - Bipolar disorder, unspecified Status: Acute (2) Non compliance w medication regimen ICD Codes: Z91.14 - Patient's other noncompliance with medication regimen Assessment & Plan Estimated LOS: days continue current treatment plan Justification for Cont. Inpt. Likely to decompensate at lower level of care Request HC Surrog/Guard Advoc?: Yes Problem Qualifiers (1) Bipolar disorder: Qualified Codes: F31.73 - Bipolar disorder, in partial remission, most recent episode manic Juaquin Poe MD Apr 02, 2017 18:19
[2017-04-02] MEDS: risperiDONE ODT 3 MG TAB PO SCH (21:42)
[2017-04-03 06:07] VITALS: BP 104/56; PULSE 77; RESP 16; TEMP 98.1; O2SAT 97
--- NOTE | 2017-04-03 07:02 | HHI.PYPN ---
Subjective Remarks Patient seen and examined. Chart reviewed. Case discussed with nursing staff. No behavioral issues noted overnight by nurse, and patient was medication compliant with the evening medications although she had apparently refused some of her morning medications. On my examination today, the patient presents as calm and coherent. She says that her mood is "sad because I have to go home and face reality." Later, she says "I don't want to go home. I like it here." She asks about following here as an outpatient, and when I explain that we don 't have outpatient services she says "that's the problem. Once you say goodbye , you say goodbye." She is agreeable to following up at [facility]. No SI/HI. No psychotic material. Denies side effects from medications. No physical complaints. Review of Systems Except as stated in HPI: all other systems reviewed are Neg Objective Alert: Yes Gordon: Person, Place, Date Mood: Other ("sad") Affect: Appropriate Memory Intact: Comment (fair on clinical exam) Hallucinations: Other (no AVH) Delusions: No Delusion Type: Other (no delusional material) Suicidal: Ideation (no SI voiced) Homicidal: Ideation (no HI voiced) Insight/Judgment Poor but perhaps improving somewhat Remarks No motoric abnormalities noted. No hand tremor, no cogwheeling. Thought process fairly linear today. Grooming and hygiene fair at best. Labs Test 04/02/17 09:54 White Blood Count 4.7 TH/MM3 Red Blood Count 3.90 MIL/MM3 Hemoglobin 10.6 GM/DL Hematocrit 33.1 % Mean Corpuscular Volume 84.8 FL Mean Corpuscular Hemoglobin 27.2 PG Mean Corpuscular Hemoglobin Concent 32.1 % Red Cell Distribution Width 15.1 % Platelet Count 167 TH/MM3 Mean Platelet Volume 9.2 FL Neutrophils (%) (Auto) 55.2 % Lymphocytes (%) (Auto) 26.9 % Monocytes (%) (Auto) 15.1 % Eosinophils (%) (Auto) 1.8 % Basophils (%) (Auto) 1.0 % Neutrophils # (Auto) 2.6 TH/MM3 Lymphocytes # (Auto) 1.3 TH/MM3 Monocytes # (Auto) 0.7 TH/MM3 Eosinophils # (Auto) 0.1 TH/MM3 Basophils # (Auto) 0.0 TH/MM3 CBC Comment DIFF FINAL Differential Comment Blood Urea Nitrogen 22 MG/DL Creatinine 1.75 MG/DL Random Glucose 133 MG/DL Calcium Level 9.8 MG/DL Sodium Level 136 MEQ/L Potassium Level 3.9 MEQ/L Chloride Level 104 MEQ/L Carbon Dioxide Level 24.5 MEQ/L Anion Gap 8 MEQ/L Estimat Glomerular Filtration Rate 29 ML/MIN Date/Time Source Procedure Growth Status 03/30/17 14:30 Urine Clean Catch Urine Culture - Final Klebsiella Pneumoniae Complete Labs reviewed. Anemia and GFR stable. Vitals/IOs Vital Signs Date Time Temp Pulse Resp B/P (MAP) Pulse Ox O2 Delivery O2 Flow Rate FiO2 04/03/17 06:07 98.1 77 16 104/56 (72) 97 Intake and Output 04/03/17 04/03/17 04/04/17 08:00 16:00 00:00 Intake Total 120 ml Balance 120 ml Assessment & Plan Problem List: (1) Bipolar disorder ICD Codes: F31.9 - Bipolar disorder, unspecified Status: Acute (2) Non compliance w medication regimen ICD Codes: Z91.14 - Patient's other noncompliance with medication regimen Assessment & Plan Patient's mood seems to be stabilizing with combination of Risperdal, Navane and Depakote. Patient would likely do well with placement as an intermediate step between hospital and discharge home, but she has been resistant so far. I will ask the counselor to explore this option with her. Continue current psychotropics as ordered. Hospitalist input noted and appreciated. Continue to monitor on the inpatient unit. Continue other medications and care as ordered. Justification for Cont. Inpt. Risk for decompensation in less restrictive environment. Discharge Planning ?placement vs. home with involuntary outpatient commitment program. Will discuss case with counselor. Request HC Surrog/Guard Advoc?: Yes Problem Qualifiers (1) Bipolar disorder: Qualified Codes: F31.73 - Bipolar disorder, in partial remission, most recent episode manic Osiel Davis MD Apr 03, 2017 07:02
[2017-04-03 07:30] LABS: BICARBONATE 26.4 MEQ/L (21.0-32.0); POTASSIUM 4.2 MEQ/L (3.5-5.1)
[2017-04-03] MEDS: INSULIN ASPART SUPPLEMENTAL SCALE SQ SCH ×4 (08:00→21:00)
[2017-04-03] MEDS: amLODIPine BESYLATE 5 MG TAB PO SCH (08:28)
[2017-04-03] MEDS: risperiDONE ODT 1 MG TAB PO SCH (08:28)
[2017-04-03] MEDS: THIOTHIXENE 5 MG CAP PO SCH ×2 (08:29→21:09)
[2017-04-03] MEDS: DIVALPROEX SODIUM E.R. 250 MG TAB PO SCH (08:29)
[2017-04-03] MEDS: RIVAROXABAN 20 MG TAB PO SCH (08:29)
[2017-04-03] MEDS: FAMOTIDINE 20 MG TAB PO SCH ×2 (08:29→21:09)
[2017-04-03] MEDS: METOPROLOL TARTRATE 25 MG TAB PO SCH ×2 (08:29→21:09)
[2017-04-03 08:34] VITALS: BP 124/68; PULSE 87
[2017-04-03] MEDS: REMOVE OLD PATCH T-DERMAL SCH (09:00)
--- NOTE | 2017-04-03 10:24 | HHI.PR ---
Subjective Remarks OOB in chair. Patients speech is calm but adamant about being discharged home today. She is also very happy about daughters visit. Objective Vital Signs Date Time Temp Pulse Resp B/P (MAP) Pulse Ox O2 Delivery O2 Flow Rate FiO2 04/03/17 08:34 87 124/68 (86) 04/03/17 06:07 98.1 77 16 104/56 (72) 97 04/02/17 17:46 97.4 66 18 125/72 (89) 99 I/O 04/02/17 04/02/17 04/02/17 04/03/17 04/03/17 04/03/17 07:00 15:00 23:00 07:00 15:00 23:00 Intake Total 1310 ml 480 ml 740 ml Balance 1310 ml 480 ml 740 ml Intake Oral 1310 ml 480 ml 740 ml # Voids 4 2 3 Result Diagram: 04/02/17 0954 04/03/17 0701 Objective Remarks GENERAL: Alert and calm SKIN: Warm and dry. HEAD: Normocephalic. EYES: No scleral icterus. No injection or drainage. NECK: Supple, trachea midline. No JVD or lymphadenopathy. CARDIOVASCULAR: Regular rate and rhythm without murmurs, gallops, or rubs. bilateral lower extremity edema 1+ RESPIRATORY: Breath sounds equal bilaterally. No accessory muscle use. GASTROINTESTINAL: Abdomen soft, non-tender, nondistended. MUSCULOSKELETAL: No cyanosis, or edema. BACK: Nontender without obvious deformity. No CVA tenderness. Medications and IVs Current Medications Medications (Trade) Dose Ordered Sig/Valentina Route Start Time Stop Time Status Last Admin (D50w (Vial) Inj) 50 ml UNSCH PRN IV 03/10/17 12:15 (Glucagon Inj) 1 mg UNSCH PRN OTHER 03/10/17 12:15 (NovoLOG SUPPLEMENTAL SCALE) 1 ACHS SLIDING SCALE SQ 03/10/17 16:00 03/23/17 16:03 (Tylenol) 650 mg Q4H PRN PO 03/10/17 12:15 (Milk Of Magnesia Liq) 30 ml DAILY PRN PO 03/10/17 12:15 (Mag-Al Plus Susp Liq) 30 ml Q6H PRN PO 03/10/17 12:15 Miscellaneous Information 1 DAILY T-DERMAL 03/11/17 09:00 03/23/17 09:00 (Ativan) 0.5 mg Q12H PRN PO 03/12/17 13:45 04/01/17 22:12 (Ativan Inj) 0.5 mg Q12H PRN IM 03/12/17 13:45 03/28/17 04:24 (Benadryl) 25 mg Q6H PRN PO 03/12/17 13:45 04/01/17 08:31 (Benadryl Inj) 25 mg Q6H PRN IM 03/12/17 13:45 03/14/17 07:13 (risperDAL M-TAB) 3 mg HS PO 03/12/17 21:00 04/02/17 21:42 (Xarelto) 20 mg DAILY PO 04/01/17 09:00 04/03/17 08:29 (Lopressor) 12.5 mg BID PO 03/21/17 09:00 04/03/17 08:29 (Pill Splitter) 1 ea UNSCH PRN OTHER 03/21/17 09:00 (Depakote Er) 1,250 mg DAILY PO 03/22/17 09:00 04/03/17 08:29 (risperDAL M-TAB) 3 mg DAILY PO 03/23/17 09:00 04/03/17 08:28 Sodium Chloride 1,000 ml @ 50 mls/hr Q20H IV 03/28/17 11:30 04/02/17 03:14 (Norvasc) 10 mg DAILY PO 03/30/17 09:00 04/03/17 08:28 (Pepcid) 10 mg BID PO 03/30/17 21:00 04/03/17 08:29 (Navane) 5 mg Q12HR PO 03/31/17 21:00 04/03/17 08:29 Assessment and Plan Problem List: (1) DVT (deep venous thrombosis) ICD Codes: I82.409 - Acute embolism and thrombosis of unspecified deep veins of unspecified lower extremity Status: Chronic (2) Non compliance w medication regimen ICD Codes: Z91.14 - Patient's other noncompliance with medication regimen (3) Bipolar disorder ICD Codes: F31.9 - Bipolar disorder, unspecified Status: Acute (4) Cellulitis of lower extremity ICD Codes: L03.119 - Cellulitis of unspecified part of limb (5) Non-insulin dependent type 2 diabetes mellitus ICD Codes: E11.9 - Non-insulin dependent type 2 diabetes mellitus Status: Chronic (6) Hypertension ICD Codes: I10 - Hypertension Status: Acute Assessment and Plan 03/14/17 Bipolar disorder: Continues to be maniac. Speech is pressured and patient overly animated. Psych managing. DVT: Left lower extremity DVT. According to records second DVT last one 03/24. Edema is improved. On Xarelto Diabetes: BS AC and HS. Blood sugars have been mostly under 200mg/dl Will monitor Lower extremity cellulitis: On doxycycline HTN: B/p this AM will make changes if consistent. On metoprolol and norvasc. 03/16/17 Bipolar disorder: Continues to be maniac. Speech is less pressured. Psych managing. DVT: Left lower extremity DVT. According to records second DVT last one 03/24. Edema is improved. On Xarelto Diabetes: BS AC and HS. Blood sugars well controlled. Will monitor Lower extremity cellulitis: On doxycycline stop date on Monday HTN: B/p at 117/59 this AM. On metoprolol and norvasc. 03/21/17 Bipolar disorder: Speech is less pressured and easy to follow. Psych managing. DVT: Left lower extremity DVT. According to records second DVT last one 03/24. Edema is improved. On Xarelto Diabetes: BS AC and HS. Blood sugars well controlled all less than 200 overnight. Will monitor Lower extremity cellulitis: resolved and antibiotics complete HTN: B/p at 111/74 this AM. On metoprolol and norvasc. Will increase metoprolol to BID with heart rate in the 110-115. 03/23/17 Bipolar disorder: Speech is pressured and and very loud. Risperdal increased. Psych managing. DVT: Left lower extremity DVT. According to records second DVT last one 03/24. Edema is improved. On Xarelto Diabetes: BS AC and HS. Blood sugars well controlled all less than 200 overnight. Will monitor Lower extremity cellulitis: resolved and antibiotics complete HTN: B/p well controlled this AM. On metoprolol and norvasc. 03/28/17 Bipolar disorder: Psych managing. Hypercalcemia: Patient transferred to medical psych. Nephrology consulted. IVF 1/2 NS per nephrology note most likely prerenal azotemia. CA slightly improved today at 11.0. PTH low. GFR has declined this admission from 54 to 24. DVT: Left lower extremity DVT. On Xarelto Diabetes: BS AC and HS. Blood sugars well controlled all less than 200 overnight. Will monitor HTN: B/p well controlled this AM. On metoprolol and norvasc. 03/29/17 Hypercalcemia: Patient transferred to medical psych. Nephrology consulted. IVF 1/2 NS per nephrology note most likely prerenal azotemia. CA slightly improved today at 10.2 dowm from 11.0. PTH low. Bipolar disorder: Psych managing. Patient is alert and calm today. DVT: Left lower extremity DVT. On Xarelto Diabetes: BS AC and HS. Blood sugars well controlled all less than 200 overnight. Will monitor HTN: B/p slightly elevated this AM with IVF running will increase norvasc. 03/30/17 Hypercalcemia: Nephrology consulted and managing. IVF 1/2 NS per nephrology note most likely prerenal azotemia. CA improved today at 9.7. Ionized calcium at 7.0. PTH low. Bipolar disorder: Psych managing. Patient is alert and calm today. DVT: Left lower extremity DVT. On Xarelto Diabetes: BS AC and HS. Blood sugars well controlled. Will continue to monitor HTN: B/p well controlled at 126/69 with increase norvasc. 04/03/17 Hypercalcemia: Nephrology consulted and has signed off. CA levels WNL. Fluids encouraged. Bipolar disorder: Psych managing. Patient is alert and calm today. Expresses that she is willing to take medication and that she wants to go home DVT: Left lower extremity DVT. On Xarelto Diabetes: BS AC and HS. Blood sugars well controlled. Will continue to monitor HTN: B/p well controlled on norvasc and metoprolol. UTI: klebsiella pneumonia noted in urine culture will start Ceftin. I and the POSTAL SERVICE MAIL PROCESSOR have both examined this patient and reviewed this note and I agree with these findings an plan of care. Abdoulaye Barclay DO Problem Qualifiers (1) Bipolar disorder: Qualified Codes: F31.73 - Bipolar disorder, in partial remission, most recent episode manic Odette Khoury POSTAL SERVICE MAIL PROCESSOR Apr 03, 2017 10:24
[2017-04-03] MEDS: SODIUM CHLOR 0.45% 1000 ML INJ 1,000 ML IV SCH (16:27)
[2017-04-03 17:48] VITALS: BP 109/59; PULSE 75; RESP 17; TEMP 97.4; O2SAT 96
[2017-04-03] MEDS: risperiDONE ODT 3 MG TAB PO SCH (21:09)
[2017-04-04] MEDS: CIPROFLOXACIN 500 MG TAB PO SCH ×2 (04:39→09:26)
[2017-04-04 05:00] VITALS: BP 112/58; PULSE 72; RESP 17; TEMP 97.1; O2SAT 99
[2017-04-04] MEDS: INSULIN ASPART SUPPLEMENTAL SCALE SQ SCH ×2 (08:00→12:00)
--- NOTE | 2017-04-04 08:22 | HHI.FF ---
Face to Face Verification Diagnosis: (1) Bipolar disorder (2) Non compliance w medication regimen Physical Therapy Order: Evaluate and Treat, Improve ambulation, Strength and gait training Occupational Therapy Order: Evaluate and Treat, Improve ADL, Gross motor coordination, Fine motor coordination Home Health Nursing Order: Medical education Wound care and dressing changes Automobile Glass Technician Order: To Evaluate: Living conditions/environment, Support services Order: To Provide: Long range planning, Community services I have seen patient Theresa Hurley on 04/04/17. My clinical findings support the need for the requested home health care services because: Med compliance is questionable Need for psychosocial assistance Impaired cognition/judgement I certify that my clinical findings support that this patient is homebound because: Need for psychosocial assistance Osiel Davis MD Apr 04, 2017 08:22
[2017-04-04] MEDS: REMOVE OLD PATCH T-DERMAL SCH (09:00)
[2017-04-04] MEDS: DIVALPROEX SODIUM E.R. 250 MG TAB PO SCH (09:26)
[2017-04-04] MEDS: FAMOTIDINE 20 MG TAB PO SCH (09:27)
[2017-04-04] MEDS: THIOTHIXENE 5 MG CAP PO SCH (09:27)
[2017-04-04] MEDS: RIVAROXABAN 20 MG TAB PO SCH (09:27)
[2017-04-04] MEDS: risperiDONE ODT 1 MG TAB PO SCH (09:27)
[2017-04-04] MEDS: amLODIPine BESYLATE 5 MG TAB PO SCH (09:28)
[2017-04-04] MEDS: METOPROLOL TARTRATE 25 MG TAB PO SCH (09:28)
--- NOTE | 2017-04-04 11:13 | HHI.PR ---
Subjective Remarks OOB in chair. Patient is alert and oriented today in very good spirits. Objective Vital Signs Date Time Temp Pulse Resp B/P (MAP) Pulse Ox O2 Delivery O2 Flow Rate FiO2 04/04/17 05:00 97.1 72 17 112/58 (76) 99 04/03/17 17:48 97.4 75 17 109/59 (76) 96 I/O 04/03/17 04/03/17 04/03/17 04/04/17 04/04/17 04/04/17 07:00 15:00 23:00 07:00 15:00 23:00 Intake Total 740 ml 200 ml 1000 ml 1000 ml 720 ml Balance 740 ml 200 ml 1000 ml 1000 ml 720 ml Intake Oral 740 ml 200 ml 1000 ml 1000 ml 720 ml # Voids 3 2 2 3 # Bowel Movements 1 1 Result Diagram: 04/02/17 0954 04/03/17 0701 Objective Remarks GENERAL: Alert and calm SKIN: Warm and dry. HEAD: Normocephalic. EYES: No scleral icterus. No injection or drainage. NECK: Supple, trachea midline. No JVD or lymphadenopathy. CARDIOVASCULAR: Regular rate and rhythm without murmurs, gallops, or rubs. bilateral lower extremity edema 1+ RESPIRATORY: Breath sounds equal bilaterally. No accessory muscle use. GASTROINTESTINAL: Abdomen soft, non-tender, nondistended. MUSCULOSKELETAL: No cyanosis, or edema. BACK: Nontender without obvious deformity. No CVA tenderness. Medications and IVs Current Medications Medications (Trade) Dose Ordered Sig/Valentina Route Start Time Stop Time Status Last Admin (D50w (Vial) Inj) 50 ml UNSCH PRN IV 03/10/17 12:15 (Glucagon Inj) 1 mg UNSCH PRN OTHER 03/10/17 12:15 (NovoLOG SUPPLEMENTAL SCALE) 1 ACHS SLIDING SCALE SQ 03/10/17 16:00 03/23/17 16:03 (Tylenol) 650 mg Q4H PRN PO 03/10/17 12:15 (Milk Of Magnesia Liq) 30 ml DAILY PRN PO 03/10/17 12:15 (Mag-Al Plus Susp Liq) 30 ml Q6H PRN PO 03/10/17 12:15 Miscellaneous Information 1 DAILY T-DERMAL 03/11/17 09:00 03/23/17 09:00 (Ativan) 0.5 mg Q12H PRN PO 03/12/17 13:45 04/01/17 22:12 (Ativan Inj) 0.5 mg Q12H PRN IM 03/12/17 13:45 03/28/17 04:24 (Benadryl) 25 mg Q6H PRN PO 03/12/17 13:45 04/01/17 08:31 (Benadryl Inj) 25 mg Q6H PRN IM 03/12/17 13:45 03/14/17 07:13 (risperDAL M-TAB) 3 mg HS PO 03/12/17 21:00 04/03/17 21:09 (Xarelto) 20 mg DAILY PO 04/01/17 09:00 04/04/17 09:27 (Lopressor) 12.5 mg BID PO 03/21/17 09:00 04/04/17 09:28 (Pill Splitter) 1 ea UNSCH PRN OTHER 03/21/17 09:00 (Depakote Er) 1,250 mg DAILY PO 03/22/17 09:00 04/04/17 09:26 (risperDAL M-TAB) 3 mg DAILY PO 03/23/17 09:00 04/04/17 09:27 Sodium Chloride 1,000 ml @ 50 mls/hr Q20H IV 03/28/17 11:30 04/02/17 03:14 (Norvasc) 10 mg DAILY PO 03/30/17 09:00 04/04/17 09:28 (Pepcid) 10 mg BID PO 03/30/17 21:00 04/04/17 09:27 (Navane) 5 mg Q12HR PO 03/31/17 21:00 04/04/17 09:27 (Cipro) 500 mg Q12HR PO 04/03/17 21:00 04/08/17 21:00 04/04/17 09:26 Assessment and Plan Problem List: (1) DVT (deep venous thrombosis) ICD Codes: I82.409 - Acute embolism and thrombosis of unspecified deep veins of unspecified lower extremity Status: Chronic (2) Non compliance w medication regimen ICD Codes: Z91.14 - Patient's other noncompliance with medication regimen (3) Bipolar disorder ICD Codes: F31.9 - Bipolar disorder, unspecified Status: Acute (4) Cellulitis of lower extremity ICD Codes: L03.119 - Cellulitis of unspecified part of limb (5) Non-insulin dependent type 2 diabetes mellitus ICD Codes: E11.9 - Non-insulin dependent type 2 diabetes mellitus Status: Chronic (6) Hypertension ICD Codes: I10 - Hypertension Status: Acute Assessment and Plan 03/14/17 Bipolar disorder: Continues to be maniac. Speech is pressured and patient overly animated. Psych managing. DVT: Left lower extremity DVT. According to records second DVT last one 03/24. Edema is improved. On Xarelto Diabetes: BS AC and HS. Blood sugars have been mostly under 200mg/dl Will monitor Lower extremity cellulitis: On doxycycline HTN: B/p this AM will make changes if consistent. On metoprolol and norvasc. 03/16/17 Bipolar disorder: Continues to be maniac. Speech is less pressured. Psych managing. DVT: Left lower extremity DVT. According to records second DVT last one 03/24. Edema is improved. On Xarelto Diabetes: BS AC and HS. Blood sugars well controlled. Will monitor Lower extremity cellulitis: On doxycycline stop date on Monday HTN: B/p at 117/59 this AM. On metoprolol and norvasc. 03/21/17 Bipolar disorder: Speech is less pressured and easy to follow. Psych managing. DVT: Left lower extremity DVT. According to records second DVT last one 03/24. Edema is improved. On Xarelto Diabetes: BS AC and HS. Blood sugars well controlled all less than 200 overnight. Will monitor Lower extremity cellulitis: resolved and antibiotics complete HTN: B/p at 111/74 this AM. On metoprolol and norvasc. Will increase metoprolol to BID with heart rate in the 110-115. 03/23/17 Bipolar disorder: Speech is pressured and and very loud. Risperdal increased. Psych managing. DVT: Left lower extremity DVT. According to records second DVT last one 03/24. Edema is improved. On Xarelto Diabetes: BS AC and HS. Blood sugars well controlled all less than 200 overnight. Will monitor Lower extremity cellulitis: resolved and antibiotics complete HTN: B/p well controlled this AM. On metoprolol and norvasc. 03/28/17 Bipolar disorder: Psych managing. Hypercalcemia: Patient transferred to medical psych. Nephrology consulted. IVF 1/2 NS per nephrology note most likely prerenal azotemia. CA slightly improved today at 11.0. PTH low. GFR has declined this admission from 54 to 24. DVT: Left lower extremity DVT. On Xarelto Diabetes: BS AC and HS. Blood sugars well controlled all less than 200 overnight. Will monitor HTN: B/p well controlled this AM. On metoprolol and norvasc. 03/29/17 Hypercalcemia: Patient transferred to medical psych. Nephrology consulted. IVF 1/2 NS per nephrology note most likely prerenal azotemia. CA slightly improved today at 10.2 dowm from 11.0. PTH low. Bipolar disorder: Psych managing. Patient is alert and calm today. DVT: Left lower extremity DVT. On Xarelto Diabetes: BS AC and HS. Blood sugars well controlled all less than 200 overnight. Will monitor HTN: B/p slightly elevated this AM with IVF running will increase norvasc. 03/30/17 Hypercalcemia: Nephrology consulted and managing. IVF 1/2 NS per nephrology note most likely prerenal azotemia. CA improved today at 9.7. Ionized calcium at 7.0. PTH low. Bipolar disorder: Psych managing. Patient is alert and calm today. DVT: Left lower extremity DVT. On Xarelto Diabetes: BS AC and HS. Blood sugars well controlled. Will continue to monitor HTN: B/p well controlled at 126/69 with increase norvasc. 04/03/17 Hypercalcemia: Nephrology consulted and has signed off. CA levels WNL. Fluids encouraged. Bipolar disorder: Psych managing. Patient is alert and calm today. Expresses that she is willing to take medication and that she wants to go home DVT: Left lower extremity DVT. On Xarelto Diabetes: BS AC and HS. Blood sugars well controlled. Will continue to monitor HTN: B/p well controlled on norvasc and metoprolol. UTI: klebsiella pneumonia noted in urine culture will start Ceftin. 04/04/17 Hypercalcemia: Nephrology consulted and has signed off. CA levels WNL. Bipolar disorder: Psych managing. Patient is alert and calm today. DVT: Left lower extremity DVT. On Xarelto Diabetes: BS AC and HS. Blood sugars well controlled. Will continue to monitor HTN: B/p well controlled on norvasc and metoprolol. UTI: On ceftin Discussed with Dr Davis and plans for discharge home soon with [facility]. Discussed getting discount card for Xarelto. Patient is medically cleared for discharge I and the RURAL CARRIER have both examined this patient and reviewed this note and I agree with these findings an plan of care. Abdoulaye Barclay DO Problem Qualifiers (1) Bipolar disorder: Qualified Codes: F31.73 - Bipolar disorder, in partial remission, most recent episode manic Odette Khoury [facility] Apr 04, 2017 11:13
[2017-04-04] MEDS ORDERED: CIPR-9 PO (11:17)
[2017-04-04] MEDS ORDERED: RISP25P IM (11:17)
[2017-04-04] MEDS ORDERED: XARE20TA PO (11:17)
[2017-04-04] MEDS ORDERED: THIO5CAP PO (11:17)
[2017-04-04] MEDS ORDERED: RISP3 PO (11:17)
[2017-04-04] MEDS ORDERED: FAMO20TA2 PO (11:17)
[2017-04-04] MEDS ORDERED: DIVA250ER PO (11:17)
--- NOTE | 2017-04-04 11:17 | HHI.DS ---
Psychiatry Discharge Summary Inpatient Psychiatric care?: Yes Advance Directive: No Reason Not Provided: Due to Patient Condition Mental Health AdvanceDirective: No Health Care Proxy: No Admission Admission Date Mar 10, 2017 at 12:00 Admission Diagnosis: (1) Bipolar affective disorder, current episode manic with psychotic symptoms ICD Code: F31.2 - Bipolar affective disorder, current episode manic with psychotic symptoms (2) Non compliance w medication regimen ICD Code: Z91.14 - Patient's other noncompliance with medication regimen Brief History Ms. Hurley is a 66-year-old female with a history of bipolar illness well known to the psychiatric service here from multiple prior psychiatric hospitalizations. She presented most recently to the emergency department under a Nino act per notes and was medically admitted as she had a left lower extremity DVT. She has a history of VTE. Dr. Garrett saw the patient in consultation and recommended psychiatric admission to the medical psychiatric unit. Reviewing the electronic medical record, I note that the patient was admitted most recently under Dr. Ca and was discharged on . Patient seen and examined. Chart reviewed. Case discussed with nursing staff. On my examination today, the patient presents as distractible, impulsive, disinhibited. Speech is rambling, at times nonsensical, and there is significant loosening of associations. When I ask her why she has come into the hospital she says "I tried to implement what I learned and learned all my life. I was no longer welcome back at [facility] because they no longer offer ECT. 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 Patient for example runs the palm of her hand all over her face and hair, saying she is making a "snowball" which she then pantomimes throwing across the room, saying "Frosty the Snowman!" She appears frankly internally preoccupied but cannot describe any audiovisual hallucinations. When I ask her about suicidal ideation or homicidal ideation, she simply stares intently at me and lows like a cow. Grandiosity present. No depressive symptoms. Remainder of the psychiatric ROS is negative. Past psychiatric history: Patient has a history of bipolar illness. She maintains that she is not currently under the care of a psychiatrist. She denies any interval psychiatric admissions or suicide attempts since her recent discharge from the inpatient psychiatric unit here. Tobacco Use In Past 30 Days: No Tobacco Past 30 Days Alcohol Use: Never Hospital Course Patient was admitted to a locked, inpatient psychiatric unit. A general medical consultation was obtained. Appropriate precautions were in place throughout patient's hospital stay. Patient was seen and examined on the unit by psychiatry and also visited by counselor. Psychotropic medications were adjusted. Patient was started on long-acting injectable Risperdal Consta. Patient tolerated psychotropic medications well without side effects. Patient had improvement in presenting psychiatric symptomatology with stabilization of mood and resolution of psychosis during the course of her hospital stay. There was no evidence of any suicidality or homicidality on the inpatient unit. Patient's behavior improved with the benefit of psychopharmacologic treatment. Patient was ordered by the certified fire investigator into the involuntary outpatient commitment program, and the counselor has also referred the patient the FACT team. On the day of discharge: Patient seen and examined. Chart reviewed. Case discussed in treatment team with counselor, nurse and occupational therapist. Case also discussed with nurse practitioner from hospitalist service, and I have asked the counselor to ensure that the patient is provided with a discount card for Xarelto. Per nursing staff, no behavioral issues overnight. On my examination today, the patient is in good spirits. She requests discharge from the inpatient psychiatric unit today. Mood is reportedly stable, and I can elicit no ongoing depressive or hypomanic/manic symptoms beyond some mild circumstantiality. She denies any suicidal or homicidal ideation, intent or plan on direct questioning and contracts for safety. She denies any audiovisual hallucinations, and I can elicit no delusional material. She denies side effects from medications. No physical complaints. Weighing the acute, chronic, and protective factors and based on the available evidence, I certified fire investigator to a reasonable degree of medical certainty that the patient is at low imminent risk of harm to self or others from a mental illness as defined under the Nino act, and her level of function is adequate for outpatient care. Patient has maximized benefit from this inpatient psychiatric hospital stay and will be discharged home with home health care today with psychiatric follow-up as arranged by counselor. Patient is also to follow-up with primary care. I have counseled the patient regarding warning signs for need to return to the psychiatric emergency room as part of a general safety plan. Results Blood Pressure 112 / 58 Vital Signs Date Time Temp Pulse Resp B/P (MAP) Pulse Ox O2 Delivery O2 Flow Rate FiO2 04/04/17 05:00 97.1 72 17 112/58 (76) 99 Laboratory Tests Test 04/02/17 09:54 04/03/17 07:01 Red Blood Count 3.90 MIL/MM3 (4.00-5.30) Hemoglobin 10.6 GM/DL (11.6-15.3) Hematocrit 33.1 % (35.0-46.0) Monocytes (%) (Auto) 15.1 % (0.0-8.0) Blood Urea Nitrogen 22 MG/DL (7-18) 29 MG/DL (7-18) Creatinine 1.75 MG/DL (0.50-1.00) 1.61 MG/DL (0.50-1.00) Random Glucose 133 MG/DL (74-106) Estimat Glomerular Filtration Rate 29 ML/MIN (>89) 32 ML/MIN (>89) Laboratory Results Test 03/11/17 10:36 03/24/17 11:48 Cholesterol Level 146 MG/DL (120-200) HDL Cholesterol 22.8 MG/DL (40.0-60.0) Hemoglobin A1c 7.7 % (4.3-6.0) LDL Cholesterol 82 MG/DL (0-99) Triglycerides Level 207 MG/DL (42-150) Valproic Acid (Depakene) Level 90 MCG/ML (50-100) Summary of Procedures None done Imaging None done Pending results at discharge: No Medications # of Antipsychotic meds at D/C: 2 Appropriate >1 Antipsych meds?: 4 Approp Antipsych med options 1 - Minimum of three failed multiple trials of monotherapy. 2 - Documented plan to taper to monotherapy due to previous use of multiple meds OR cross-taper in progress at D/C. 3 - Documentation of augmentation of Clozapine. 4 - Justification other than those listed in allowable values 1-3, document here : Required multiple antipsychotics for stabilization Discharge Discharge Date: Apr 04, 2017 Discharge Diagnosis: (1) Bipolar disorder in remission Diagnosis: Principal ICD Code: F31.70 - Bipolar disorder, currently in remission, most recent episode unspecified Mental Status Exam at Disch Patient is in hospital attire. Patient is fairly well groomed and maintaining basic hygiene. Patient is awake and alert and oriented to person and hospital at least. No evidence of delirium. No motor abnormalities appreciated. Speech is within normal limits for rate, tone, volume. Language and fund of knowledge average. Focus and concentration much improved versus admission. Memory grossly intact on clinical exam. Mood is good. Affect is full and reactive. Thought process remains a little bit circumstantial. No delusions elicited. Denies audiovisual hallucinations and does not appear internally stimulated. Denies suicidal or homicidal ideation, intent, or plan and contracts for safety. Insight and judgment seem fair to poor. Pt Condition on Discharge: Stable Discharge Disposition: Disch w/ Home Health Serv Discharge Instructions Diet Instructions: As Tolerated, No Restrictions Activities you can perform: Weight Bearing as Justin Scheduled Appointment: as per counselor's notes New Medications: Risperidone (Risperdal) 3 Mg Tab 3 MG PO Q12HR for Mental Health for 15 Days, TAB 1 Refill Talk with your outpatient provider about how to taper and discontinue oral Risperdal. Be sure to get your next dose of Risperdal Consta. Risperidone Inj (Risperdal Consta Inj) 25 Mg/2 Ml Inj 25 MG IM Q14D for Mental Health, #2 VIAL 0 Refills This dose of Consta is due on 04/13/2017. Ciprofloxacin (Cipro) 500 Mg Tab 500 MG PO Q12HR for UTI for 6 Days, TAB 0 Refills Divalproex ER (Depakote ER) 250 Mg Diana 1250 MG PO DAILY for Mental Health for 15 Days, #75 TAB 1 Refill Famotidine (Famotidine) 20 Mg Tab 10 MG PO BID for Health for 15 Days, #15 TAB 1 Refill Rivaroxaban (Xarelto) 20 Mg Tab 20 MG PO DAILY for Health for 15 Days, #15 TAB 1 Refill Thiothixene (Thiothixene) 5 Mg Cap 5 MG PO Q12HR for Mental Health for 15 Days, CAP 1 Refill Continued Medications: Amlodipine (Norvasc) 5 Mg Tab 5 MG PO DAILY for health, #30 TAB 0 Refills Metoprolol Tartrate (Metoprolol Tartrate) 25 Mg Tab 12.5 MG PO Q12HR for Blood Pressure Management for 0 Days, TAB 0 Refills Discontinued Medications: Amlodipine (Norvasc) 5 Mg Tab 5 MG PO DAILY for Blood Pressure Management for 28 Days, BOTTLE 0 Refills Divalproex ER (Depakote ER) 500 Mg Diana 1000 MG PO HS for Mental Health for 0 Days, TAB 0 Refills Divalproex ER (Depakote ER) 500 Mg Diana 1000 MG PO HS for Anxiety and/or Insomnia, #28 TAB Divalproex ER (Depakote ER) 500 Mg Diana 1000 MG PO 2 po hshealth for health, #60 TAB 0 Refills Metoprolol Tartrate (Metoprolol Tartrate) 25 Mg Tab 12.5 MG PO 1/2 po q 12 h for health, #30 TAB 0 Refills Nitrofurantoin Monohydrate Macrocrystals (Macrobid) 100 Mg Cap 100 MG PO BID for Infection, #15 CAP 0 Refills Olanzapine (Zyprexa) 20 Mg Tab 20 MG PO HS, #30 TAB 0 Refills Olanzapine Odt (Zyprexa Zydis) 20 Mg Tab 20 MG PO HS for Mental Health for 0 Days, TAB 0 Refills Olanzapine (Olanzapine) 15 Mg Tab 15 MG PO BID for health, #60 TAB 0 Refills Potassium Chloride Microencaps (Potassium Chloride Microencaps) 20 Meq Tab 20 MEQ PO DAILY for health, #30 TAB 0 Refills Thiothixene (Thiothixene) 10 Mg Cap 10 MG PO DAILY@08,16 for Mental Health for 0 Days, CAP 0 Refills Thiothixene (Thiothixene) 10 Mg Cap 10 MG PO DAILY@08,16 for Agitation, #60 CAP Thiothixene (Thiothixene) 10 Mg Cap 10 MG PO BID@08,16 for health, #60 CAP 0 Refills Discharge Time > 30 minutes Discharge/Advance Care Plan Health Problems: (1) Bipolar disorder (2) Non compliance w medication regimen Goals to promote your health * To prevent worsening of your condition and complications * To maintain your health at the optimal level Directions to meet your goals Take your medications as prescribed Follow your dietary instruction Follow activity as directed Keep your appointments as scheduled Take your immunizations and boosters as scheduled If your symptoms worsen call your PCP, if no PCP go to Urgent Care Center or Emergency Room For 30/01 questions related to your inpatient stay or results of tests pending at discharge, please contact Dr. Osiel Davis at Smoking is Dangerous to Your Health. Avoid second hand smoking Osiel Davis MD Apr 04, 2017 11:17
[2017-04-04] MEDS: SODIUM CHLOR 0.45% 1000 ML INJ 1,000 ML IV SCH (12:11)
--- NOTE | 2017-04-04 12:41 | PD.TTN ---
Patient Problems 1. Discharge planning 2. Medication compliance 3. Knowledge deficit 4. Lack of coping skills Progress Toward Goals Provider Present: Dr. Paris Davis Provider Input: Patient is being discharged home, with [facility] health, referral for [facility] Fact team, and outpatient follow-up with [facility] Nurse(s) Input: Per Tonya ORDOÑEZ, patient has been taking her medication, eating meals and unit compliant Psychiatric Counselors Present: Bettina Claudio [facility] Psych Therapist Input: Patient has been linked with [facility] outpatient, referral faxed to [facility] FACT team, and linked with [facility]. Group Spec/RT/OT/CHENG Present: Fam Metz OT Group Spec/RT/OT/CHENG Input: Patient has participated with some groups and activities Occupational Therapist Input: comes to some groups per Raymond 03/28 Discharge Plan [facility], Home Healthcare, Other Documentation Teaching Recipient: Patient GonzálezBettina [facility] Apr 04, 2017 12:41
== END 2017-04-04 14:50 | disposition home health service (06) | DRG 885 ==
LOC: H4EA 12:00 → H250 03-14 → H4EA 03-28 11:10
PROVIDERS: ADMIT Psychiatry & Neurology Psychiatry; ATTEND Psychiatry & Neurology Psychiatry
DX: F31.2 Bipolar disorder, current episode manic severe with psychotic features (principal); N17.9 Acute kidney failure, unspecified; I82.412 Acute embolism and thrombosis of left femoral vein; E83.52 Hypercalcemia; E11.9 Type 2 diabetes mellitus without complications; L03.119 Cellulitis of unspecified part of limb; I10 Essential (primary) hypertension; N39.0 Urinary tract infection, site not specified; I82.432 Acute embolism and thrombosis of left popliteal vein; I82.442 Acute embolism and thrombosis of left tibial vein; F41.9 Anxiety disorder, unspecified; R79.89 Other specified abnormal findings of blood chemistry; R06.02 Shortness of breath; D64.9 Anemia, unspecified; Z91.14 Patient's other noncompliance with medication regimen; B96.1 Klebsiella pneumoniae [K. pneumoniae] as the cause of diseases classified elsewhere; Z86.718 Personal history of other venous thrombosis and embolism; Z79.899 Other long term (current) drug therapy
CPT/HCPCS: 80048; 80053; 80061; 80164; 81001; 82140; 82330; 82397; 82948; 83036; 83970; 84155; 85025; 85027; 87077; 87086; 87186; 93005; 96372; G0378; J1200; J1815; J2060; J2794

== ENCOUNTER 2017-05-16 23:20 | Inpatient (IN) | payer MEDICARE, OTHER ==
[~2017-05-16] VITALS: Ht 167.6 cm; Wt 76.4 kg
[~2017-05-16 23:20] MED LIST changes: +CIPR-9 PO; -DEPA500T3 PO; +DIVA250ER PO; +FAMO20TA2 PO; -MACR100C2 PO; -OLAN15TA PO; -OLANZ20 PO; -POTA20TA5 PO; +RISP25P IM; +RISP3 PO; -THIO10CA PO; +THIO5CAP PO; +XARE20TA PO; -ZYPR20TA PO
[2017-05-16 23:40] VITALS: BP 157/85; PULSE 99; RESP 18; TEMP 97.9; O2SAT 96
--- NOTE | 2017-05-17 00:30 | PD ---
HPI Chief Complaint: Psychiatric Symptoms Time Seen by Provider: 00:26 Travel History International Travel<30 days: No Contact w/Intl Traveler<30days: No Traveled to known affect area: No History of Present Illness HPI Patient comes in under a Nino act by police after being found standing in the street. Patient denies any medical complaints or concerns at this time. Denies any homicidal or suicidal ideations, chest pain, shortness of breath, fevers, abdominal pain, loss or change in bowel or bladder, or other concerns. Denies anything making this better or worse. PFSH Past Medical History Arthritis: No Asthma: No Autoimmune Disease: No Blood Disorders: No Bipolar Disorder: Yes Anxiety: Yes Depression: Yes Heart Rhythm Problems: No Cancer: No Cardiovascular Problems: Yes (Hx DVT) High Cholesterol: No Chemotherapy: No Chest Pain: No Congestive Heart Failure: No COPD: No Cerebrovascular Accident: No Diabetes: Yes Patient Takes Glucophage: No Diminished Hearing: No Endocrine: Yes Gastrointestinal Disorders: No GERD: No Genitourinary: Yes (UTI) Hiatal Hernia: No Hypertension: Yes Immune Disorder: No Kidney Stones: No Musculoskeletal: Yes (right clubbed foot; right hip replacement) Neurologic: No Psychiatric: Yes (Yes - Schizoaffective) Reproductive: No Respiratory: No Migraines: No Radiation Therapy: No Renal Failure: No Seizures: No Sickle Cell Disease: No Sleep Apnea: No Thyroid Disease: No Ulcer: No Tetanus Vaccination: Unknown ?: Not Menopausal: Yes : 2 Para: 2 Miscarriage: 0 : 0 Past Surgical History Abdominal Surgery: No AICD: No Arteriovenous Shunt: No Cardiac Surgery: No Ear Surgery: No Endocrine Surgery: No Eye Surgery: No Genitourinary Surgery: No Gynecologic Surgery: No Hysterectomy: No Insulin Pump: No Joint Replacement: No Oral Surgery: No Pacemaker: No Thoracic Surgery: No Other Surgery: Yes (right hip replacement) Social History Alcohol Use: Yes Tobacco Use: No Substance Use: No Allergies-Medications (Allergen,Severity, Reaction): Coded Allergies: Sulfa (Sulfonamide Antibiotics) (Verified Allergy, Severe, Hives, 03/08/17) ibuprofen (Verified Allergy, Severe, HIVES, 03/08/17) penicillin G (Verified Allergy, Severe, HIVES, 03/08/17) Reported Meds & Prescriptions Reported Meds & Active Scripts Active Risperdal (Risperidone) 3 Mg Tab 3 Mg PO Q12HR 15 Days Talk with your outpatient provider about how to taper and discontinue oral Risperdal. Be sure to get your next dose of Risperdal Consta. Risperdal Consta Inj (Risperidone) 25 Mg/2 Ml Inj 25 Mg IM Q14D This dose of Consta is due on 04/13/2017. Famotidine 20 Mg Tab 10 Mg PO BID 15 Days Thiothixene 5 Mg Cap 5 Mg PO Q12HR 15 Days Depakote ER (Divalproex Sodium) 250 Mg Diana 1,250 Mg PO DAILY 15 Days Xarelto (Rivaroxaban) 20 Mg Tab 20 Mg PO DAILY 15 Days Norvasc (Amlodipine Besylate) 5 Mg Tab 5 Mg PO DAILY Metoprolol Tartrate 25 Mg Tab 12.5 Mg PO Q12HR 0 Days Review of Systems Except as stated in HPI: all other systems reviewed are Neg Physical Exam Narrative GENERAL: Well-developed, well nourished, in no acute distress, and non-ill appearing. SKIN: Focused skin assessment warm and dry. HEAD: Atraumatic. Normocephalic. EYES: Pupils equal and round. EOMI. No scleral icterus. No injection or drainage. ENT: No nasal bleeding or discharge. Mucous membranes pink and moist. NECK: Trachea midline. Supple. No nuclear rigidity. CARDIOVASCULAR: Regular rate and rhythm. No murmur appreciated. RESPIRATORY: No accessory muscle use. No respiratory distress. Clear to auscultation. Breath sounds equal bilaterally. MUSCULOSKELETAL: No obvious deformities. No clubbing. No cyanosis. No edema. Full range of motion. NEUROLOGICAL: Awake and alert. No obvious cranial nerve deficits. Motor grossly within normal limits. Normal speech. Data Data Last Documented VS Vital Signs Date Time Temp Pulse Resp B/P (MAP) Pulse Ox O2 Delivery O2 Flow Rate FiO2 05/16/17 23:40 97.9 99 18 157/85 (109) 96 Orders Orders Psych Screen (05/17/17 00:00) Complete Blood Count With Diff (05/17/17 00:11) Comprehensive Metabolic Panel (05/17/17 00:11) Urinalysis - C+S If Indicated (05/17/17 00:11) Drug Screen, Random Urine (05/17/17 00:11) Alcohol (Ethanol) (05/17/17 00:11) Valproic Acid (Depakene) (05/17/17 00:32) Lorazepam Inj (Ativan Inj) (05/17/17 01:22) Admit Order (Ed Use Only) (05/17/17 01:36) Labs Laboratory Tests Test 05/17/17 00:32 White Blood Count 4.8 TH/MM3 Red Blood Count 4.00 MIL/MM3 Hemoglobin 11.3 GM/DL Hematocrit 34.8 % Mean Corpuscular Volume 86.9 FL Mean Corpuscular Hemoglobin 28.3 PG Mean Corpuscular Hemoglobin Concent 32.6 % Red Cell Distribution Width 16.6 % Platelet Count 181 TH/MM3 Mean Platelet Volume 9.3 FL Neutrophils (%) (Auto) 62.4 % Lymphocytes (%) (Auto) 26.1 % Monocytes (%) (Auto) 9.5 % Eosinophils (%) (Auto) 1.2 % Basophils (%) (Auto) 0.8 % Neutrophils # (Auto) 3.0 TH/MM3 Lymphocytes # (Auto) 1.3 TH/MM3 Monocytes # (Auto) 0.5 TH/MM3 Eosinophils # (Auto) 0.1 TH/MM3 Basophils # (Auto) 0.0 TH/MM3 CBC Comment DIFF FINAL Differential Comment Blood Urea Nitrogen 22 MG/DL Creatinine 1.04 MG/DL Random Glucose 137 MG/DL Total Protein 8.9 GM/DL Albumin 4.2 GM/DL Calcium Level 9.1 MG/DL Alkaline Phosphatase 89 U/L Aspartate Amino Transf (AST/SGOT) 20 U/L Alanine Aminotransferase (ALT/SGPT) 20 U/L Total Bilirubin 0.7 MG/DL Sodium Level 142 MEQ/L Potassium Level 3.9 MEQ/L Chloride Level 109 MEQ/L Carbon Dioxide Level 23.7 MEQ/L Anion Gap 9 MEQ/L Estimat Glomerular Filtration Rate 53 ML/MIN Valproic Acid (Depakene) Level LESS THAN 3 MCG/ML Ethyl Alcohol Level LESS THAN 3 MG/DL MDM Medical Decision Making Medical Screen Exam Complete: Yes Emergency Medical Condition: Yes Differential Diagnosis Homicidal, suicidal, schizoaffective, metabolic disturbance, anemia, other Narrative Course Patient was seen and examined. Labs were obtained and reviewed with the exception of urinalysis has not been collected yet. Patient medically cleared for further treatment and evaluation by psych. Final disposition per psych. Diagnosis Primary Impression: Medical clearance for psychiatric admission Condition: Stable Iftikhar North D PA May 17, 2017 00:30
[2017-05-17 00:43] LABS: BASOPHIL % 0.8 % (0.0-2.0); EOSINOPHIL # 0.1 TH/MM3 (0-0.4); EOSINOPHIL % 1.2 % (0.0-4.0); HEMATOCRIT 34.8 % (35.0-46.0); HEMO FLAGS DIFF FINAL; LYMPH % 26.1 % (9.0-44.0); LYMPHOCYTE # 1.3 TH/MM3 (1.0-4.8); MEAN CELL VOLUME 86.9 FL (80.0-100.0); MEAN CORPUSCULAR HEMOGLOBIN 28.3 PG (27.0-34.0); MEAN CORPUSCULAR HGB CONC 32.6 % (32.0-36.0); MONO % 9.5 % (0.0-8.0); NEUT % 62.4 % (16.0-70.0); PLATELET COUNT 181 TH/MM3 (150-450); RED CELL DISTRIBUTION WIDTH 16.6 % (11.6-17.2); WHITE BLOOD COUNT 4.8 TH/MM3 (4.0-11.0)
[2017-05-17 01:11] LABS: ANION GAP 9 MEQ/L (5-15); AST (GOT) 20 U/L (15-37); BICARBONATE 23.7 MEQ/L (21.0-32.0); BLOOD UREA NITROGEN 22 MG/DL (7-18); CHLORIDE 109 MEQ/L (98-107); GLOMERULAR FILTRATION RATE 53 ML/MIN (>89); POTASSIUM 3.9 MEQ/L (3.5-5.1); SODIUM (NA) 142 MEQ/L (136-145)
[2017-05-17 01:13] LABS: ALCOHOL LESS THAN 3 MG/DL (0-5)
[2017-05-17 01:15] LABS: ALKALINE PHOSPHATASE 89 U/L (45-117); ALT (GPT) 20 U/L (10-53); TOTAL BILIRUBIN ADULT 0.7 MG/DL (0.2-1.0)
[2017-05-17] MEDS ORDERED: LORazepam 2 MG/ML VIAL ONE (01:22)
[2017-05-17] MEDS ORDERED: LORazepam 2 MG/ML VIAL IM ONE (01:30)
[2017-05-17 02:43] VITALS: BP 155/98; PULSE 97; O2SAT 98
[2017-05-17] MEDS ORDERED: LORazepam 0.5 MG TAB age > 65 yrs PO PRN (03:00)
[2017-05-17] MEDS ORDERED: MAGNESIUM HYDROXIDE SUSP 30 ML CUP PO PRN (03:00)
[2017-05-17] MEDS ORDERED: ALUMINUM/MAGNESIUM/SIMETH 30 ML CUP PO PRN (03:00)
[2017-05-17] MEDS ORDERED: ACETAMINOPHEN 325 MG TAB PO PRN (03:00)
[2017-05-17] MEDS ORDERED: LORazepam 2 MG/ML VIAL - age > 65 yrs IM PRN (03:00)
[2017-05-17 05:38] VITALS: BP 149/87; PULSE 84; RESP 17; TEMP 97.3
--- NOTE | 2017-05-17 08:24 | HHI.HP ---
Provisional Diagnosis Admission Date May 17, 2017 at 01:38 [place] I. 1. Bipolar disorder, presently manic, severe with psychotic features 2. Medication nonadherence [place] II. Deferred Certification of Person's Competence To Provide Express and Informed Consent I have personally examined Theresa Hurley , a person being served at [facility] on, May 17, 2017 08:24. Express and informed consent means consent voluntarily given in writing, by a competent person, after sufficient explanation and disclosure of the subject matter involved to enable the person to make a knowing and willful decision without any element of force, fraud, deceit, duress, or other form of constraint or coercion. This person is 18 years of age or older, is not now known to be incompetent to consent to treatment with a guardian advocate, and does not have a health care surrogate or proxy currently making medical treatment decisions. I have found this person to be one of the following: [] Competent to provide express and informed consent, as defined above, for voluntary admission to this facility and is competent to provide express and informed consent for treatment. He/she has the consistent capacity to make well reasoned, willful, and knowing decisions concerning his or her medical or mental health treatment. The person fully and consistently understands the purpose of the admission for examination/placement and is fully capable of personally exercising all rights assured [place] [x] Incompetent to provide express and informed consent to voluntary admission, and this is incompetent to provide express and informed consent to treatment. The person must be transferred to involuntary status and a petition for a guardian advocate filed with the Circuit Court. [] Refusing to provide express and informed consent to voluntary admission but is competent to provide express and informed consent for treatment. The person must be discharged or transferred to involuntary status. Form shall be completed within 24 hours of a person's arrival at the receiving facility and filed in the clinical record of each person: 1. Admitted on a voluntary basis 2. Permitted to provide express and informed consent to his/her own treatment 3. Allowed to transfer from involuntary to voluntary status 4. Prior to permitting a person to consent to his or her own treatment after having been previously found incompetent to consent to treatment. History of Present Illness Capacity: Lacks Capacity Psych Chief Complaint: Mala HPI Ms. Hurley is a 66-year-old female with a history of bipolar illness well-known to the psychiatric service here from multiple prior ED visits and psychiatric admissions. She was brought back to the emergency department yesterday in the evening under a Nino act by law enforcement alleging that the patient was standing in the road and was belligerent. Patient was agitated in the ED last night and received Ativan 2 mg IM once. Reviewing the electronic medical record, I note that the patient was admitted most recently under my care in March of this year. Patient seen and examined. Chart reviewed. Case discussed with nursing staff. Patient was no further behavioral problem after arriving on the floor. I find the patient in the day area dozing in a raymond-chair. She is quite disheveled. She is easily awakened. Speech is pressured and rambling. Loosening of associations is present. She says, "I alban want the best for everybody. I don't want to be any human being besides who's standing. Send me home. I want the top head richard down here in a charles-minosecond." Affect is labile. She is fixated on the fact that, by her report, [facility] does not have a pediatric neurosurgeon on staff. She denies SI/HI but seems distinctly unreliable to contract for safety. She denies AVH. Grandiosity present. She demands discharge and threatens to rigoberto Dr. Ca for some reason if she is not discharged. She admits to non-adherence with medications. No physical complaints. Psychiatric interview is limited as the patient is a poor historian as a consequence of her psychiatric symptoms. I am unable to obtain any meaningful past psychiatric, family, chemical dependency or social history from this patient at this time for this reason. Patient was placed into the involuntary outpatient commitment program during her last hospitalization, and I put out a call to the egg caser Shen Fernandez with the program to determine what transpired after she was discharged from the hospital last time. Shen tells me that patient became immediately medication non-adherent following discharge from the hospital. She refused to see outpatient mental health provider and refused attempts by Shen to visit the home to assess her status. Review of Systems ROS Limitations: Psychotic, Poor Historian Except as stated in HPI: all other systems reviewed are Neg Past Psych History Psychological trauma history No reported trauma history to me. Violence risk - others (6 mos) Concern for elevated risk. Belligerent per BA and agitated in ED. Violence risk - self (6 mos) Concern for elevated risk due to self-neglect. Substance Abuse History Drugs/Alcohol past 12 months See above Past Family Social History Coded Allergies: Sulfa (Sulfonamide Antibiotics) (Verified Allergy, Severe, Hives, 03/08/17) ibuprofen (Verified Allergy, Severe, HIVES, 03/08/17) penicillin G (Verified Allergy, Severe, HIVES, 03/08/17) Past Medical History See electronic medical record Active Scripts Risperidone (Risperdal) 3 Mg Tab, 3 MG PO Q12HR for Mental Health for 15 Days, TAB 1 Refill Talk with your outpatient provider about how to taper and discontinue oral Risperdal. Be sure to get your next dose of Risperdal Consta. Prov:Osiel Davis MD 04/04/17 Risperidone Inj (Risperdal Consta Inj) 25 Mg/2 Ml Inj, 25 MG IM Q14D for Mental Health, #2 VIAL 0 Refills This dose of Consta is due on 04/13/2017. Prov:Osiel Davis MD 04/04/17 Famotidine (Famotidine) 20 Mg Tab, 10 MG PO BID for Health for 15 Days, #15 TAB 1 Refill Prov:Osiel Davis MD 04/04/17 Thiothixene (Thiothixene) 5 Mg Cap, 5 MG PO Q12HR for Mental Health for 15 Days , CAP 1 Refill Prov:Osiel Davis MD 04/04/17 Divalproex ER (Depakote ER) 250 Mg Diana, 1250 MG PO DAILY for Mental Health for 15 Days, #75 TAB 1 Refill Prov:Osiel Davis MD 04/04/17 Rivaroxaban (Xarelto) 20 Mg Tab, 20 MG PO DAILY for Health for 15 Days, #15 TAB 1 Refill Prov:Osiel Davis MD 04/04/17 Amlodipine (Norvasc) 5 Mg Tab, 5 MG PO DAILY for health, #30 TAB 0 Refills Prov:Tim Ca MD 03/01/17 Metoprolol Tartrate (Metoprolol Tartrate) 25 Mg Tab, 12.5 MG PO Q12HR for Blood Pressure Management for 0 Days, TAB 0 Refills Prov:Osiel Davis MD 11/01/16 Discontinued Scripts Ciprofloxacin (Cipro) 500 Mg Tab, 500 MG PO Q12HR for UTI for 6 Days, TAB 0 Refills Prov:Osiel Davis MD 04/04/17 Current Medications Medications (Trade) Dose Ordered Sig/Valentina Route Start Time Stop Time Status Last Admin (Ativan) 0.5 mg Q12H PRN PO 05/17/17 03:00 (Ativan Inj) 0.5 mg Q12H PRN IM 05/17/17 03:00 (Tylenol) 650 mg Q4H PRN PO 05/17/17 03:00 (Milk Of Magnesia Liq) 30 ml DAILY PRN PO 05/17/17 03:00 (Mag-Al Plus Susp Liq) 30 ml Q6H PRN PO 05/17/17 03:00 (Habitrol 21 Mg Patch.24 Hr) 1 patch DAILY T-DERMAL 05/17/17 09:00 Miscellaneous Information 1 HS T-DERMAL 05/17/17 21:00 Family Psych History See above Social History See above Patient's Strengths (min. 2) in a monitored setting. Verbally fluent. Physical Exam Physical examination completed by ED provider. On my examination today, the patient appears to be in no acute physical distress. No motor abnormalities noted. I note she has a temporary glitter tattoo on her arm reading '[facility]'. Labs and vitals reviewed: Vital Signs Vital Signs Date Time Temp Pulse Resp B/P (MAP) Pulse Ox O2 Delivery O2 Flow Rate FiO2 05/17/17 05:38 97.3 84 17 149/87 (107) 05/17/17 02:43 98 Lab Results Item Value Date Time White Blood Count 4.8 TH/MM3 05/17/17 0032 Hemoglobin 11.3 GM/DL L 05/17/17 0032 Platelet Count 181 TH/MM3 05/17/17 0032 Sodium Level 142 MEQ/L 05/17/17 0032 Potassium Level 3.9 MEQ/L 05/17/17 0032 Chloride Level 109 MEQ/L H 05/17/17 0032 Carbon Dioxide Level 23.7 MEQ/L 05/17/17 0032 Blood Urea Nitrogen 22 MG/DL H 05/17/17 0032 Creatinine 1.04 MG/DL H 05/17/1731 Aspartate Amino Transf (AST/SGOT) 20 U/L 05/17/1731 Alanine Aminotransferase (ALT/SGPT) 20 U/L 05/17/1731 Alkaline Phosphatase 89 U/L 05/17/1731 Valproic Acid (Depakene) Level LESS THAN 3 MCG/ML L 05/17/1731 Ethyl Alcohol Level LESS THAN 3 MG/DL 05/17/1731 Labs reviewed. Anemia chronic and stable. Renal function improved relative to her recent baseline. Depakote level undetectable suggesting nonadherence. Mental Status Examination Appearance: Disheveled Consciousness: Other (Sleepy but easily awakened) Orientation: Person, Place Motor Activity: Other (No motor abnormalities noted) Speech: Unremarkable Language: Adequate Fund of Knowledge: Adequate Attention and Concentration: Adequate Memory: Unremarkable (Grossly intact on clinical exam but not formally assessed ) Mood: Irritable, Other (elevated) Affect: Irritable, Labile Thought Process & Associations: Loose associations Thought Content: Bizarre thinking, Delusional Hallucination Type: None Delusion Type: Other (Grandiose) Suicidal Ideation: No (unreliable to contract for safety) Suicidal Plan: No Suicidal Intention: No Homicidal Ideation: No Homicidal Intention: No Insight: Poor Judgment: Poor Assessment & Plan Problem List: (1) Bipolar affective disorder, current episode manic with psychotic symptoms ICD Codes: F31.2 - Bipolar affective disorder, current episode manic with psychotic symptoms Status: Chronic (2) Non compliance w medication regimen ICD Codes: Z91.14 - Patient's other noncompliance with medication regimen Assessment & Plan 66-year-old female with psychiatric history as detailed above who presents under a Nino act. Recurrent episodes of psychiatric decompensation related chiefly to medication nonadherence. Presently, the patient is in a severe manic state with psychotic features. She requires psychiatric hospitalization for safety, observation and stabilization. Admit inpatient. Involuntary status. I have completed first opinion. Consult for second opinion. Request healthcare surrogate and guardian advocate. Resume Depakote ER 1250 mg daily for mood stabilization. Check a Depakote level after the appropriate interval. Resume Navane 5 mg twice daily for psychosis. I will hold off on resuming the Risperdal/Consta for now as it does not seem that PEREZ was of much utility on an outpatient basis. Ativan as needed for anxiety. Continue the patient's amlodipine and metoprolol. Continue Xarelto. Continue Pepcid. Diabetic diet. Accu-Cheks with sliding scale insulin. Consult to the hospitalist. PT/OT/falls precautions. Vitals every shift. Counselor to see. Disposition planning. Estimated length of stay: 1-2 weeks at least; may require placement or referral to [facility] given recurrent treatment failure in the community setting. Discharge Planning To be determined Request HC Surrog/Guard Advoc?: Yes Osiel Davis MD May 17, 2017 08:24
[2017-05-17] MEDS: NICOTINE 21 MG/24 HR PATCH T-DERMAL SCH ×2 (09:00→09:48)
[2017-05-17] MEDS: DIVALPROEX SODIUM E.R. 250 MG TAB PO SCH (10:15)
[2017-05-17] MEDS: FAMOTIDINE 20 MG TAB PO SCH ×2 (10:15→20:21)
[2017-05-17] MEDS: RIVAROXABAN 20 MG TAB PO SCH (10:15)
[2017-05-17] MEDS: THIOTHIXENE 5 MG CAP PO SCH ×2 (10:15→20:21)
[2017-05-17] MEDS ORDERED: GLUCAGON 1 MG/ML VIAL OTHER PRN (10:30)
[2017-05-17] MEDS ORDERED: DEXTROSE 50% IN WATER 50 ML VIAL(D50) IV PUSH PRN (10:30)
[2017-05-17] MEDS: amLODIPine BESYLATE 5 MG TAB PO SCH (11:27)
[2017-05-17] MEDS: METOPROLOL TARTRATE 25 MG TAB PO SCH ×2 (11:31→20:21)
[2017-05-17] MEDS: INSULIN ASPART SUPPLEMENTAL SCALE SQ SCH ×3 (11:38→20:24)
[2017-05-17 14:48] LABS: HDL CHOLESTEROL 45.7 MG/DL (40.0-60.0)
[2017-05-17 17:40] VITALS: BP 114/66; PULSE 69; RESP 18; TEMP 98; O2SAT 100
[2017-05-17] MEDS: REMOVE OLD NICOTINE PATCH T-DERMAL SCH (20:23)
[2017-05-18 05:27] VITALS: BP 116/61; PULSE 68; RESP 18; TEMP 97.3; O2SAT 97
[2017-05-18] MEDS ORDERED: diphenhydrAMINE HCL 50 MG/ML VIAL IM STA (07:35)
[2017-05-18] MEDS ORDERED: OLANZapine IM 10 MG VIAL IM STA (07:35)
--- NOTE | 2017-05-18 07:58 | HHI.PYPN ---
Subjective Chief Complaint: Mala Remarks Patient seen and examined. Chart reviewed. Case discussed with nursing staff. Patient has been loud and disruptive all night. I find that patient taking breakfast in the short galicia. She remains quite manic. She is yelling at the top of her lungs, "your wish is not my command! I like potatoes! [employer]!" I note that she refused her Depakote, and when I ask about this patient replies, "I took my applesauce." She is oppositional. Speech is pressured. She does not respond to verbal redirection and becomes increasingly agitated and disruptive. I have ordered her medicated with Zyprexa and Benadryl ETO. She does calm somewhat with this medication but continues to yell out periodically. No evident side effects from medications. No physical complaints. Review of Systems ROS Limitations: Psychotic, Poor Historian Except as stated in HPI: all other systems reviewed are Neg Mental Status Examination Appearance: Disheveled Consciousness: Alert Orientation: Person, Place Motor Activity: Other (No abnormal motor movements noted.) Speech: Unremarkable Language: Adequate Fund of Knowledge: Adequate Attention and Concentration: Adequate Memory: Unremarkable (Difficult to assess given current psychiatric symptoms) Mood: Oppositional, Irritable, Other (elevated) Affect: Irritable, Labile Thought Process & Associations: Loose associations Thought Content: Bizarre thinking, Delusional Hallucination Type: None Delusion Type: Other (Grandiose) Suicidal Ideation: No (unreliable to contract for safety) Suicidal Plan: No Suicidal Intention: No Homicidal Ideation: No Homicidal Plan: No Homicidal Intention: No Insight: Poor Judgment: Poor Results Labs Labs reviewed. Vitals/IOs Vital Signs Date Time Temp Pulse Resp B/P (MAP) Pulse Ox O2 Delivery O2 Flow Rate FiO2 05/18/17 05:27 97.3 68 18 116/61 (70) 97 Assessment & Plan Problem List: (1) Bipolar affective disorder, current episode manic with psychotic symptoms ICD Codes: F31.2 - Bipolar affective disorder, current episode manic with psychotic symptoms Status: Chronic (2) Non compliance w medication regimen ICD Codes: Z91.14 - Patient's other noncompliance with medication regimen Assessment & Plan After ETO, patient did accept Depakote. Continue Depakote and Navane as ordered , but I will add Zyprexa IM backup in case patient should refuse oral psychotropics. Hospitalist input noted and appreciated. Continue to monitor on the inpatient unit. Continue other meds and care as ordered. Justification for Cont. Inpt. Med changes. Impairment in self-care. High risk for decompensation in less restrictive environment. Discharge Planning Pending psychiatric stabilization. State hospitalization versus placement on a locked unit. Request HC Surrog/Guard Advoc?: Yes Osiel Davis MD May 18, 2017 07:58
[2017-05-18] MEDS: INSULIN ASPART SUPPLEMENTAL SCALE SQ SCH ×4 (08:00→20:20)
[2017-05-18] MEDS: DIVALPROEX SODIUM E.R. 250 MG TAB PO SCH (08:42)
[2017-05-18] MEDS: RIVAROXABAN 20 MG TAB PO SCH (08:42)
[2017-05-18] MEDS: THIOTHIXENE 5 MG CAP PO SCH ×2 (08:42→20:19)
[2017-05-18] MEDS: amLODIPine BESYLATE 5 MG TAB PO SCH (08:42)
[2017-05-18] MEDS: FAMOTIDINE 20 MG TAB PO SCH ×2 (08:42→20:19)
[2017-05-18] MEDS: METOPROLOL TARTRATE 25 MG TAB PO SCH ×2 (09:00→20:19)
--- NOTE | 2017-05-18 09:49 | PD.CONS ---
History of Present Illness Service Medicine Consult Requested By Attending Reason for Consult Medical management Primary Care Physician Abdoulaye Barclay DO Diagnoses: (1) Bipolar affective disorder, current episode manic with psychotic symptoms (2) Hypertension (3) Non compliance w medication regimen (4) HX LEFT LEG DVT (5) Acute kidney injury History of Present Illness Patient is a 66 year old female admitted under [place]ino act by law enforcement has a history of bipolar illness. Patient also has past medical history of HTN, DVT, diabetes and hypercalcemia. Patient reports that she has not been complaint with medication secondary to cost. She is very loud when we were talking and needed to be reminded to be quieter. Review of Systems Respiratory: DENIES: Cough, Sputum production, Shortness of breath Cardiovascular: DENIES: Chest pain, Palpitations Gastrointestinal: DENIES: Constipation, Diarrhea, Nausea, Vomiting Genitourinary: DENIES: Urinary frequency, Urinary incontinence Neurologic: DENIES: Seizures Psychiatric: COMPLAINS OF: Confusion, Mood changes, Hallucinations, Agitation Past Family Social History Allergies: Coded Allergies: Sulfa (Sulfonamide Antibiotics) (Verified Allergy, Severe, Hives, 03/08/17) ibuprofen (Verified Allergy, Severe, HIVES, 03/08/17) penicillin G (Verified Allergy, Severe, HIVES, 03/08/17) Past Medical History Bipolar disorder anxiety depression DVT diabetes HTN Past Surgical History Right hip replacement club foot Active Ordered Medications Current Medications Medications (Trade) Dose Ordered Sig/Valentina Route Start Time Stop Time Status Last Admin (Ativan) 0.5 mg Q12H PRN PO 05/17/17 03:00 (Ativan Inj) 0.5 mg Q12H PRN IM 05/17/17 03:00 (Tylenol) 650 mg Q4H PRN PO 05/17/17 03:00 (Milk Of Magnesia Liq) 30 ml DAILY PRN PO 05/17/17 03:00 (Mag-Al Plus Susp Liq) 30 ml Q6H PRN PO 05/17/17 03:00 (Habitrol 21 Mg Patch.24 Hr) 1 patch DAILY T-DERMAL 05/17/17 09:00 Miscellaneous Information 1 HS T-DERMAL 05/17/17 21:00 (Norvasc) 5 mg DAILY PO 05/17/17 10:15 05/18/17 08:42 (Depakote Er) 1,250 mg DAILY PO 05/17/17 10:15 05/18/17 08:42 (Pepcid) 10 mg BID PO 05/17/17 10:15 05/18/17 08:42 (Lopressor) 12.5 mg Q12HR PO 05/17/17 10:15 05/17/17 20:21 (Xarelto) 20 mg DAILY PO 05/17/17 10:15 05/18/17 08:42 (Navane) 5 mg Q12HR PO 05/17/17 10:15 05/18/17 08:42 (D50w (Vial) Inj) 50 ml UNSCH PRN IV PUSH 05/17/17 10:30 (Glucagon Inj) 1 mg UNSCH PRN OTHER 05/17/17 10:30 (NovoLOG SUPPLEMENTAL SCALE) 1 ACHS SLIDING SCALE SQ 05/17/17 12:00 Social History Denies smoking or ETOH use Lives with daughter Physical Exam Vital Signs Vital Signs Date Time Temp Pulse Resp B/P (MAP) Pulse Ox O2 Delivery O2 Flow Rate FiO2 05/18/17 05:27 97.3 68 18 116/61 (79) 97 05/17/17 17:40 98.0 69 18 114/66 (82) 100 Physical Exam GENERAL: Well-developed, well nourished, in no acute distress, and non-ill appearing. SKIN: Focused skin assessment warm and dry. HEAD: Atraumatic. Normocephalic. EYES: Pupils equal and round. EOMI. No scleral icterus. No injection or drainage. ENT: No nasal bleeding or discharge. Mucous membranes pink and moist. NECK: Trachea midline. Supple. No nuclear rigidity. CARDIOVASCULAR: Regular rate and rhythm. No murmur appreciated. RESPIRATORY: No accessory muscle use. No respiratory distress. Clear to auscultation. Breath sounds equal bilaterally. MUSCULOSKELETAL: No obvious deformities. No clubbing. No cyanosis. No edema. Full range of motion. NEUROLOGICAL: Awake and alert. No obvious cranial nerve deficits. Motor grossly within normal limits. Normal speech. Laboratory Laboratory Tests Test 05/17/17 00:32 White Blood Count 4.8 TH/MM3 Red Blood Count 4.00 MIL/MM3 Hemoglobin 11.3 GM/DL Hematocrit 34.8 % Mean Corpuscular Volume 86.9 FL Mean Corpuscular Hemoglobin 28.3 PG Mean Corpuscular Hemoglobin Concent 32.6 % Red Cell Distribution Width 16.6 % Platelet Count 181 TH/MM3 Mean Platelet Volume 9.3 FL Neutrophils (%) (Auto) 62.4 % Lymphocytes (%) (Auto) 26.1 % Monocytes (%) (Auto) 9.5 % Eosinophils (%) (Auto) 1.2 % Basophils (%) (Auto) 0.8 % Neutrophils # (Auto) 3.0 TH/MM3 Lymphocytes # (Auto) 1.3 TH/MM3 Monocytes # (Auto) 0.5 TH/MM3 Eosinophils # (Auto) 0.1 TH/MM3 Basophils # (Auto) 0.0 TH/MM3 CBC Comment DIFF FINAL Differential Comment Blood Urea Nitrogen 22 MG/DL Creatinine 1.04 MG/DL Random Glucose 137 MG/DL Total Protein 8.9 GM/DL Albumin 4.2 GM/DL Calcium Level 9.1 MG/DL Alkaline Phosphatase 89 U/L Aspartate Amino Transf (AST/SGOT) 20 U/L Alanine Aminotransferase (ALT/SGPT) 20 U/L Total Bilirubin 0.7 MG/DL Sodium Level 142 MEQ/L Potassium Level 3.9 MEQ/L Chloride Level 109 MEQ/L Carbon Dioxide Level 23.7 MEQ/L Anion Gap 9 MEQ/L Estimat Glomerular Filtration Rate 53 ML/MIN Triglycerides Level 123 MG/DL Cholesterol Level 163 MG/DL LDL Cholesterol 93 MG/DL HDL Cholesterol 45.7 MG/DL Cholesterol/HDL Ratio 3.56 RATIO Valproic Acid (Depakene) Level LESS THAN 3 MCG/ML Ethyl Alcohol Level LESS THAN 3 MG/DL Result Diagram: 05/17/173105/17/1731 Assessment and Plan Problem List: (1) HX LEFT LEG DVT Status: Resolved (2) Bipolar affective disorder, current episode manic with psychotic symptoms ICD Codes: F31.2 - Bipolar affective disorder, current episode manic with psychotic symptoms Status: Chronic (3) Non compliance w medication regimen ICD Codes: Z91.14 - Patient's other noncompliance with medication regimen (4) Hypertension ICD Codes: I10 - Hypertension Status: Acute (5) Non-insulin dependent type 2 diabetes mellitus ICD Codes: E11.9 - Non-insulin dependent type 2 diabetes mellitus Status: Chronic Assessment and Plan 05/18/17 Bipolar affective disorder: Psych is managing. Patient is mena. Reports non compliance with medication HTN: Continue metoprolol and amlodipine. B/P 116/61 HX of DVT: continue xarelto Diabetes; Well controlled all blood sugars less than 200mg/dl. Not on medication I and the FOREIGN SERVICE OFFICER have both examined this a patient and reviewed this note and I agree with these findings and plan of care. Odette Turner. [facility] May 18, 2017 09:49
--- NOTE | 2017-05-18 12:37 | PD.PSY.CON ---
Provisional Diagnosis Admission Date May 17, 2017 at 01:38 [place] I. 1. Bipolar disorder, presently manic, severe with psychotic features 2. Medication nonadherence [place] II. Deferred History of Present Illness Service Psychiatry Consult Requested By Dr. Davis Reason for Consult Second Opinion Primary Care Physician Abdoulaye Barclay, DO HPI Ms. Hurley is a 66-year-old female with a history of bipolar illness well-known to the psychiatric service here from multiple prior ED visits and psychiatric admissions. She was brought back to the emergency department yesterday in the evening under a [place] act by law enforcement alleging that the patient was standing in the road and was belligerent. Patient was agitated in the ED last night and received Ativan 2 mg IM once. Reviewing the electronic medical record, I note that the patient was admitted most recently under my care in March of this year. Patient seen and examined. Chart reviewed. Case discussed with nursing staff. Patient was no further behavioral problem after arriving on the floor. I find the patient in the day area dozing in a raymond-chair. She is quite disheveled. She is easily awakened. Speech is pressured and rambling. Loosening of associations is present. She says, "I alban want the best for everybody. I don't want to be any human being besides who's standing. Send me home. I want the top head richard down here in a charles-minosecond." Affect is labile. She is fixated on the fact that, by her report, [facility] does not have a pediatric neurosurgeon on staff. She denies SI/HI but seems distinctly unreliable to contract for safety. She denies AVH. Grandiosity present. She demands discharge and threatens to rigoberto Dr. Ca for some reason if she is not discharged. She admits to non-adherence with medications. No physical complaints. Psychiatric interview is limited as the patient is a poor historian as a consequence of her psychiatric symptoms. I am unable to obtain any meaningful past psychiatric, family, chemical dependency or social history from this patient at this time for this reason. Patient was placed into the involuntary outpatient commitment program during her last hospitalization, and I put out a call to the protective services case worker Shen Fernandez with the program to determine what transpired after she was discharged from the hospital last time. Shen tells me that patient became immediately medication non-adherent following discharge from the hospital. She refused to see outpatient mental health provider and refused attempts by Shen to visit the home to assess her status. 05/18/17: Second opinion Patient is 66-year-old woman with history of bipolar disorder, multiple psychiatric admissions was brought under Nino act due to allegedly standing in the road and being belligerent. Patient was found sitting in wheelchair in the hallway noted to be superficially cooperative today with interview patient states that she is here in the hospital because "I give up". Patient states that her daughter had called 911 because she was not taking her medications. Patient states that she has been extremely upset lately and irritable stating "I 'm unique". Patient states that every patient should be watching "what about Contreras" the movie and when asked why states patient states "because it's about taking on a psychiatrist". Patient at this time dismisses newswriter and refuses to continue interview. Past Family Social History Coded Allergies: Sulfa (Sulfonamide Antibiotics) (Verified Allergy, Severe, Hives, 03/08/17) ibuprofen (Verified Allergy, Severe, HIVES, 03/08/17) penicillin G (Verified Allergy, Severe, HIVES, 03/08/17) Active Scripts Risperidone (Risperdal) 3 Mg Tab, 3 MG PO Q12HR for Mental Health for 15 Days, TAB 1 Refill Talk with your outpatient provider about how to taper and discontinue oral Risperdal. Be sure to get your next dose of Risperdal Consta. Prov:Osiel Davis MD 04/04/17 Risperidone Inj (Risperdal Consta Inj) 25 Mg/2 Ml Inj, 25 MG IM Q14D for Mental Health, #2 VIAL 0 Refills This dose of Consta is due on 04/13/2017. Prov:Osiel Davis MD 04/04/17 Famotidine (Famotidine) 20 Mg Tab, 10 MG PO BID for Health for 15 Days, #15 TAB 1 Refill Prov:Osiel Davis MD 04/04/17 Thiothixene (Thiothixene) 5 Mg Cap, 5 MG PO Q12HR for Mental Health for 15 Days , CAP 1 Refill Prov:Osiel Davis MD 04/04/17 Divalproex ER (Depakote ER) 250 Mg Diana, 1250 MG PO DAILY for Mental Health for 15 Days, #75 TAB 1 Refill Prov:Osiel Davis MD 04/04/17 Rivaroxaban (Xarelto) 20 Mg Tab, 20 MG PO DAILY for Health for 15 Days, #15 TAB 1 Refill Prov:Osiel Davis MD 04/04/17 Amlodipine (Norvasc) 5 Mg Tab, 5 MG PO DAILY for health, #30 TAB 0 Refills Prov:Tim Ca MD 03/01/17 Metoprolol Tartrate (Metoprolol Tartrate) 25 Mg Tab, 12.5 MG PO Q12HR for Blood Pressure Management for 0 Days, TAB 0 Refills Prov:Osiel Davis MD 11/01/16 Discontinued Scripts Ciprofloxacin (Cipro) 500 Mg Tab, 500 MG PO Q12HR for UTI for 6 Days, TAB 0 Refills Prov:Osiel Davis MD 04/04/17 Current Medications Medications (Trade) Dose Ordered Sig/Valentina Route Start Time Stop Time Status Last Admin (Ativan) 0.5 mg Q12H PRN PO 05/17/17 03:00 (Ativan Inj) 0.5 mg Q12H PRN IM 05/17/17 03:00 (Tylenol) 650 mg Q4H PRN PO 05/17/17 03:00 (Milk Of Magnesia Liq) 30 ml DAILY PRN PO 05/17/17 03:00 (Mag-Al Plus Susp Liq) 30 ml Q6H PRN PO 05/17/17 03:00 (Habitrol 21 Mg Patch.24 Hr) 1 patch DAILY T-DERMAL 05/17/17 09:00 Miscellaneous Information 1 HS T-DERMAL 05/17/17 21:00 (Norvasc) 5 mg DAILY PO 05/17/17 10:15 05/18/17 08:42 (Depakote Er) 1,250 mg DAILY PO 05/17/17 10:15 05/18/17 08:42 (Pepcid) 10 mg BID PO 05/17/17 10:15 05/18/17 08:42 (Lopressor) 12.5 mg Q12HR PO 05/17/17 10:15 05/17/17 20:21 (Xarelto) 20 mg DAILY PO 05/17/17 10:15 05/18/17 08:42 (Navane) 5 mg Q12HR PO 05/17/17 10:15 05/18/17 08:42 (D50w (Vial) Inj) 50 ml UNSCH PRN IV PUSH 05/17/17 10:30 (Glucagon Inj) 1 mg UNSCH PRN OTHER 05/17/17 10:30 (NovoLOG SUPPLEMENTAL SCALE) 1 ACHS SLIDING SCALE SQ 05/17/17 12:00 Patient's Strengths (min. 2) in a monitored setting. Verbally fluent. Physical Exam Vital Signs Vital Signs Date Time Temp Pulse Resp B/P (MAP) Pulse Ox O2 Delivery O2 Flow Rate FiO2 05/18/17 05:27 97.3 68 18 116/61 (79) 97 Mental Status Examination Appearance: Disheveled Consciousness: Other (Sleepy but easily awakened) Orientation: Person, Place Motor Activity: Other (No motor abnormalities noted) Speech: Unremarkable Language: Adequate Fund of Knowledge: Adequate Attention and Concentration: Adequate Memory: Unremarkable (Grossly intact on clinical exam but not formally assessed ) Mood: Irritable Affect: Irritable, Labile Thought Process & Associations: Loose associations Thought Content: Bizarre thinking, Delusional Hallucination Type: None Delusion Type: Other (Grandiose) Suicidal Ideation: No (unreliable to contract for safety) Suicidal Plan: No Suicidal Intention: No Homicidal Ideation: No Homicidal Plan: No Homicidal Intention: No Insight: Poor Judgment: Poor Assessment & Plan Problem List: (1) Bipolar affective disorder, current episode manic with psychotic symptoms ICD Codes: F31.2 - Bipolar affective disorder, current episode manic with psychotic symptoms Status: Chronic (2) Non compliance w medication regimen ICD Codes: Z91.14 - Patient's other noncompliance with medication regimen Assessment & Plan I have seen and examined this patient, reviewed the documentation, discussed personally with Dr. Davis, and I agree and concur with his assessment and plan. Consult appreciated. Request HC Surrog/Guard Advoc?: Yes Adonis Faulkner MD May 18, 2017 12:37
[2017-05-18] MEDS ORDERED: OLANZapine IM 10 MG VIAL IM PRN (14:30)
[2017-05-18 18:11] VITALS: BP 125/75; PULSE 63; RESP 18; TEMP 97.6; O2SAT 100
[2017-05-18] MEDS: REMOVE OLD NICOTINE PATCH T-DERMAL SCH (20:27)
[2017-05-19 05:33] VITALS: BP 141/64; PULSE 65; RESP 16; TEMP 98.4; O2SAT 100
[2017-05-19] MEDS: INSULIN ASPART SUPPLEMENTAL SCALE SQ SCH ×4 (08:00→21:00)
[2017-05-19] MEDS: NICOTINE 21 MG/24 HR PATCH T-DERMAL SCH (09:00)
[2017-05-19] MEDS: METOPROLOL TARTRATE 25 MG TAB PO SCH ×2 (09:29→20:44)
[2017-05-19] MEDS: RIVAROXABAN 20 MG TAB PO SCH (09:29)
[2017-05-19] MEDS: amLODIPine BESYLATE 5 MG TAB PO SCH (09:31)
[2017-05-19] MEDS: THIOTHIXENE 5 MG CAP PO SCH ×3 (09:31→20:47)
[2017-05-19] MEDS: FAMOTIDINE 20 MG TAB PO SCH ×2 (09:31→20:44)
[2017-05-19] MEDS: DIVALPROEX SODIUM E.R. 250 MG TAB PO SCH (09:32)
--- NOTE | 2017-05-19 10:16 | HHI.PYPN ---
Subjective Chief Complaint: Mala Remarks Patient seen and examined with counselor and nurse. Chart reviewed. Case discussed with nursing staff who reports patient is religiously preoccupied. Case discussed in treatment team. On my exam, patient remains manic. She is affectively labile. She calls out in a sing-song voice, "You know what they do to old people at [facility]? They try to get them to take their meds!" When I ask about medication side effects, she says, "they're too expensive for my blood !" I try to discuss possible discharge plans with her, but she insists that she is going "to [facility]! Cuff Runner! Cuff Runner! Cuff Runner!" Yells out "Danke chris! Danke chris! Danke chris!" Disinhibited, intrusive, hyperverbal. No evident side effects from medications. No physical complaints. Review of Systems ROS Limitations: Psychotic, Poor Historian Except as stated in HPI: all other systems reviewed are Neg Mental Status Examination Appearance: Disheveled (remains farily disheveled) Consciousness: Alert Orientation: Person, Place Motor Activity: Other (No motor abnormalities noted.) Speech: Unremarkable Language: Adequate Fund of Knowledge: Adequate Attention and Concentration: Adequate Memory: Unremarkable (Difficult to assess given current psychiatric symptoms) Mood: Irritable, Manic Affect: Irritable, Labile Thought Process & Associations: Loose associations Thought Content: Bizarre thinking, Delusional Hallucination Type: None Delusion Type: Bizarre, Other (Grandiose) Suicidal Ideation: No (remains unreliable to contract for safety) Suicidal Plan: No Suicidal Intention: No Homicidal Ideation: No Homicidal Plan: No Homicidal Intention: No Insight: Poor Judgment: Poor Results Labs Labs reviewed. No new labs. Bedside glucoses reviewed. Vitals/IOs Vital Signs Date Time Temp Pulse Resp B/P (MAP) Pulse Ox O2 Delivery O2 Flow Rate FiO2 05/19/17 05:33 98.4 65 16 141/64 (89) 100 Assessment & Plan Problem List: (1) Bipolar affective disorder, current episode manic with psychotic symptoms ICD Codes: F31.2 - Bipolar affective disorder, current episode manic with psychotic symptoms Status: Chronic (2) Non compliance w medication regimen ICD Codes: Z91.14 - Patient's other noncompliance with medication regimen Assessment & Plan Titrate Navane to 7.5mg BID to target psychosis in setting of BPAD. Continue Depakote as ordered and plan to check a Depakote level after the weekend. Continue to monitor on the inpatient unit. Continue other medications and care as ordered. Justification for Cont. Inpt. Med changes. Risk for decompensation in less restrictive environment. Discharge Planning Anticipate placement vs. State. Request HC Surrog/Guard Advoc?: Yes Osiel Davis MD May 19, 2017 10:16
--- NOTE | 2017-05-19 13:15 | PD.TTN ---
Patient Problems 1. Discharge planning 2. Medication compliance 3. Knowledge deficit 4. Lack of coping skills Progress Toward Goals Provider Present: Dr. Paris Davis Provider Input: Pt requires further stabilization and medication regiment will be evaluated/adjusted. Pt will be referred for placement at a facility or [facility] as appropriate. Nurse(s) Present: Racheal Jane RN Nurse(s) Input: Pt slept well, has been compliant and has no behavioral issues on unit. She appears religiously preoccupied. Psychiatric Counselors Present: JOVAN Chavez Psych Therapist Input: Pt appears disorganized, bizarre, labile, cooperative and appropriate. She continues to present with poor insight into condition and need for care. She has been compliant with medication on unit but has a history of chronic noncompliance at home leading to numerous admissions. Pt presents with limited coping and emotional regulation skills as she has been observed to be yelling out random words on the unit. No noted aggression. She denied any mood symptoms at this time as well as perceptive disturbances though she appears preoccupied. Group Spec/RT/OT/CHENG Present: SKYLAR Musa Group Spec/RT/OT/CHENG Input: Pt has not attended groups. Discharge Plan Pt will be referred to a facility or will be referred to [facility] depending on progress of condition. Documentation Scribe: JOVAN Chavez Teaching Recipient: Patient Can Simpson May 19, 2017 13:15
[2017-05-19 18:45] VITALS: BP 114/63; PULSE 73; RESP 18; TEMP 97.6; O2SAT 99
[2017-05-19] MEDS: REMOVE OLD NICOTINE PATCH T-DERMAL SCH (20:47)
[2017-05-19] MEDS ORDERED: THIOTHIXENE 5 MG CAP PO SCH (21:00)
[2017-05-20 06:02] VITALS: BP 112/60; PULSE 63; RESP 16; TEMP 97.1; O2SAT 99
[2017-05-20] MEDS: INSULIN ASPART SUPPLEMENTAL SCALE SQ SCH ×4 (08:00→20:30)
[2017-05-20] MEDS: DIVALPROEX SODIUM E.R. 250 MG TAB PO SCH (08:07)
[2017-05-20] MEDS: METOPROLOL TARTRATE 25 MG TAB PO SCH ×2 (08:08→20:27)
[2017-05-20] MEDS: amLODIPine BESYLATE 5 MG TAB PO SCH (08:08)
[2017-05-20] MEDS: THIOTHIXENE 5 MG CAP PO SCH ×4 (08:08→20:34)
[2017-05-20] MEDS: FAMOTIDINE 20 MG TAB PO SCH ×2 (08:09→20:30)
[2017-05-20] MEDS: NICOTINE 21 MG/24 HR PATCH T-DERMAL SCH (09:00)
[2017-05-20] MEDS: RIVAROXABAN 20 MG TAB PO SCH (09:00)
--- NOTE | 2017-05-20 13:35 | HHI.PYPN ---
Subjective Chief Complaint: Mala Remarks Patient was seen and case discussed with nursing. Patient remains manic. She is elevated, hyperactive, hyperverbal. Acutely psychotic and disorganized thought process. Compliant with her medications and behaving well on the unit Mental Status Examination Appearance: Disheveled (remains farily disheveled) Consciousness: Alert Orientation: Person, Place Motor Activity: Other (No motor abnormalities noted.) Speech: Unremarkable Language: Adequate Fund of Knowledge: Adequate Attention and Concentration: Adequate Memory: Unremarkable (Difficult to assess given current psychiatric symptoms) Mood: Irritable, Manic Affect: Irritable, Labile Thought Process & Associations: Loose associations Thought Content: Bizarre thinking, Delusional Hallucination Type: None Delusion Type: Bizarre, Other (Grandiose) Suicidal Ideation: No (remains unreliable to contract for safety) Suicidal Plan: No Suicidal Intention: No Homicidal Ideation: No Homicidal Plan: No Homicidal Intention: No Insight: Poor Judgment: Poor Results Vitals/IOs Vital Signs Date Time Temp Pulse Resp B/P (MAP) Pulse Ox O2 Delivery O2 Flow Rate FiO2 05/20/17 06:02 97.1 63 16 112/60 (77) 99 Assessment & Plan Problem List: (1) Bipolar affective disorder, current episode manic with psychotic symptoms ICD Codes: F31.2 - Bipolar affective disorder, current episode manic with psychotic symptoms Status: Chronic (2) Non compliance w medication regimen ICD Codes: Z91.14 - Patient's other noncompliance with medication regimen Assessment & Plan Continue current treatment plan Justification for Cont. Inpt. Patient would decompensate in a less restrictive setting Request HC Surrog/Guard Advoc?: Yes Cody Chaidez DO May 20, 2017 13:35
[2017-05-20 18:16] VITALS: BP 95/54; PULSE 76; RESP 17; TEMP 97.5; O2SAT 98
[2017-05-20] MEDS: REMOVE OLD NICOTINE PATCH T-DERMAL SCH (20:28)
[2017-05-21 05:46] VITALS: BP 120/61; PULSE 79; RESP 16; TEMP 97.9; O2SAT 97
[2017-05-21] MEDS: INSULIN ASPART SUPPLEMENTAL SCALE SQ SCH ×4 (06:37→20:08)
[2017-05-21] MEDS: RIVAROXABAN 20 MG TAB PO SCH (08:42)
[2017-05-21] MEDS: FAMOTIDINE 20 MG TAB PO SCH ×2 (08:43→20:08)
[2017-05-21] MEDS: DIVALPROEX SODIUM E.R. 250 MG TAB PO SCH (08:43)
[2017-05-21] MEDS: METOPROLOL TARTRATE 25 MG TAB PO SCH ×2 (08:43→20:14)
[2017-05-21] MEDS: THIOTHIXENE 5 MG CAP PO SCH ×3 (08:44→20:12)
[2017-05-21] MEDS: amLODIPine BESYLATE 5 MG TAB PO SCH (08:44)
[2017-05-21] MEDS: NICOTINE 21 MG/24 HR PATCH T-DERMAL SCH (08:47)
--- NOTE | 2017-05-21 14:48 | HHI.PYPN ---
Subjective Chief Complaint: Mala Remarks Patient was seen and case discussed with nursing. Patient remains labile and somewhat grandiose. She is preoccupied with mean is asking me to move to [place]. She claims she does not have an outpatient doctor. Behaving well on the unit and tolerating medications Mental Status Examination Appearance: Disheveled (remains farily disheveled) Consciousness: Alert Orientation: Person, Place Motor Activity: Other (No motor abnormalities noted.) Speech: Unremarkable Language: Adequate Fund of Knowledge: Adequate Attention and Concentration: Adequate Memory: Unremarkable (Difficult to assess given current psychiatric symptoms) Mood: Irritable, Manic Affect: Irritable, Labile Thought Process & Associations: Loose associations Thought Content: Bizarre thinking, Delusional Hallucination Type: None Delusion Type: Bizarre, Other (Grandiose) Suicidal Ideation: No (remains unreliable to contract for safety) Suicidal Plan: No Suicidal Intention: No Homicidal Ideation: No Homicidal Plan: No Homicidal Intention: No Insight: Poor Judgment: Poor Results Vitals/IOs Vital Signs Date Time Temp Pulse Resp B/P (MAP) Pulse Ox O2 Delivery O2 Flow Rate FiO2 05/21/17 05:46 97.9 79 16 120/61 (80) 97 Assessment & Plan Problem List: (1) Bipolar affective disorder, current episode manic with psychotic symptoms ICD Codes: F31.2 - Bipolar affective disorder, current episode manic with psychotic symptoms Status: Chronic (2) Non compliance w medication regimen ICD Codes: Z91.14 - Patient's other noncompliance with medication regimen Assessment & Plan Continue current treatment plan Justification for Cont. Inpt. Patient would decompensate in a less restrictive setting Request HC Surrog/Guard Advoc?: Yes Cody Chaidez DO May 21, 2017 14:48
[2017-05-21 16:46] VITALS: BP 108/64; PULSE 64; RESP 18; TEMP 98.3; O2SAT 98
[2017-05-21 17:26] LABS: BACTERIA, URINE MANY /hpf; BLOOD, URINE MOD (NEG); GLUCOSE,URINE NEG (NEG); KETONE, URINE TRACE mg/dL (NEG); NITRITE,URINE NEG (NEG); SQUAMOUS EPITHELIAL CELL URINE 1 /hpf (0-5); URINE COLOR YELLOW (YELLW/STRAW)
[2017-05-21 17:27] LABS: COMMENT (UR) CULTURE INDICATED; CULTURE IF INDICATED CULTURE INDICATED
[2017-05-21] MEDS: REMOVE OLD NICOTINE PATCH T-DERMAL SCH (20:15)
[2017-05-22 06:05] VITALS: BP 99/56; PULSE 87; RESP 16; TEMP 98.8; O2SAT 99
[2017-05-22] MEDS: INSULIN ASPART SUPPLEMENTAL SCALE SQ SCH ×4 (08:00→20:13)
--- NOTE | 2017-05-22 08:05 | HHI.PR ---
Subjective Remarks OOB in common room. Alert and cooperative Objective Vital Signs Date Time Temp Pulse Resp B/P (MAP) Pulse Ox O2 Delivery O2 Flow Rate FiO2 05/22/17 06:05 98.8 87 16 99/56 (70) 99 05/21/17 16:46 98.3 64 18 108/64 (79) 98 Objective Remarks GENERAL: Alert and cooperative SKIN: Warm and dry. Bilateral mild lower extremity edema HEAD: Normocephalic. EYES: No scleral icterus. No injection or drainage. NECK: Supple, trachea midline. No JVD or lymphadenopathy. CARDIOVASCULAR: Regular rate and rhythm without murmurs, gallops, or rubs. RESPIRATORY: Breath sounds equal bilaterally. No accessory muscle use. GASTROINTESTINAL: Abdomen soft, non-tender, nondistended. MUSCULOSKELETAL: No cyanosis, or edema. BACK: Nontender without obvious deformity. No CVA tenderness. Medications and IVs Current Medications Medications (Trade) Dose Ordered Sig/Valentina Route Start Time Stop Time Status Last Admin (Ativan) 0.5 mg Q12H PRN PO 05/17/17 03:00 (Ativan Inj) 0.5 mg Q12H PRN IM 05/17/17 03:00 (Tylenol) 650 mg Q4H PRN PO 05/17/17 03:00 (Milk Of Magnesia Liq) 30 ml DAILY PRN PO 05/17/17 03:00 (Mag-Al Plus Susp Liq) 30 ml Q6H PRN PO 05/17/17 03:00 (Habitrol 21 Mg Patch.24 Hr) 1 patch DAILY T-DERMAL 05/17/17 09:00 Miscellaneous Information 1 HS T-DERMAL 05/17/17 21:00 (Norvasc) 5 mg DAILY PO 05/17/17 10:05/21/17 08:44 (Depakote Er) 1,250 mg DAILY PO 05/17/17 10:15 05/21/17 08:43 (Pepcid) 10 mg BID PO 05/17/17 10:15 05/21/17 20:08 (Lopressor) 12.5 mg Q12HR PO 05/17/17 10:15 05/21/17 20:14 (Xarelto) 20 mg DAILY PO 05/17/17 10:05/21/17 08:42 (D50w (Vial) Inj) 50 ml UNSCH PRN IV PUSH 05/17/17 10:30 (Glucagon Inj) 1 mg UNSCH PRN OTHER 05/17/17 10:30 (NovoLOG SUPPLEMENTAL SCALE) 1 ACHS SLIDING SCALE SQ 05/17/17 12:00 (ZyPREXA INJ) 10 mg Q12H PRN IM 05/18/17 14:30 (Navane) 5 mg DAILY@0900,1400,2100 PO 05/19/17 14:14 05/21/17 20:12 Assessment and Plan Problem List: (1) Bipolar affective disorder, current episode manic with psychotic symptoms ICD Codes: F31.2 - Bipolar affective disorder, current episode manic with psychotic symptoms Status: Chronic (2) HX LEFT LEG DVT Status: Resolved (3) Non compliance w medication regimen ICD Codes: Z91.14 - Patient's other noncompliance with medication regimen (4) Hypertension ICD Codes: I10 - Hypertension Status: Acute (5) Non-insulin dependent type 2 diabetes mellitus ICD Codes: E11.9 - Non-insulin dependent type 2 diabetes mellitus Status: Chronic Assessment and Plan 05/18/17 Bipolar affective disorder: Psych is managing. Patient is mena. Reports non compliance with medication HTN: Continue metoprolol and amlodipine. B/P 116/61 HX of DVT: continue xarelto Diabetes; Well controlled all blood sugars less than 200mg/dl. Not on medication 05/28/17 Bipolar affective disorder: Alert and cooperative this morning. Psych is managing. HTN: Blood pressure running on lower side will discontinue amlodipine. Fluids encouraged. Has mild lower extremity edema could be related to Norvasc Diabetes: BS well controlled Labs ordered and UA is pending I and the PATTERN CLEANER have both examined this a patient and reviewed this note and I agree with these findings and plan of care. Abdoulaye Barclay DO Discussed Condition With Nursing Odette Khoury May 22, 2017 08:05
[2017-05-22] MEDS: DIVALPROEX SODIUM E.R. 250 MG TAB PO SCH (08:26)
[2017-05-22] MEDS: THIOTHIXENE 5 MG CAP PO SCH ×3 (08:27→20:12)
[2017-05-22] MEDS: NICOTINE 21 MG/24 HR PATCH T-DERMAL SCH (08:28)
[2017-05-22] MEDS: RIVAROXABAN 20 MG TAB PO SCH (08:28)
[2017-05-22] MEDS: FAMOTIDINE 20 MG TAB PO SCH ×2 (08:28→20:12)
[2017-05-22] MEDS: METOPROLOL TARTRATE 25 MG TAB PO SCH ×2 (08:34→20:10)
--- NOTE | 2017-05-22 09:49 | HHI.PYPN ---
Subjective Chief Complaint: Mala Remarks Patient seen and examined with nurse. Chart reviewed. Case discussed with nursing staff. On my examination today, the patient is calmer and less manic. She has been adherent with psychotropic medications. Remains a little bit grandiose, but overall this is attenuated. No SI or HI. No side effects from medications. No physical complaints. Patient, nurse and I discussed patient's recurrent presentations to the hospital for medication nonadherence and psychiatric decompensation and patient does take some superficial ownership of this problem and verbalizes at least some willingness to pursue placement in a structured living environment. Review of Systems ROS Limitations: Poor Historian Except as stated in HPI: all other systems reviewed are Neg Mental Status Examination Appearance: Disheveled (grooming improved although overall still fairly disheveled) Consciousness: Alert Orientation: Person, Place Motor Activity: Other (No motor abnormalities noted.) Speech: Unremarkable Language: Adequate Fund of Knowledge: Adequate Attention and Concentration: Adequate Memory: Unremarkable Mood: Oppositional (mild), Irritable Affect: Other (consistent with stated mood) Thought Process & Associations: Loose associations (more linear today) Thought Content: Bizarre thinking Hallucination Type: None Delusion Type: Other (Grandiose, lessening) Suicidal Ideation: No (remains unreliable to contract for safety) Homicidal Ideation: No Insight: Poor Judgment: Poor Results Labs Test 05/22/17 08:50 Ammonia 22 MCMOL/L Valproic Acid (Depakene) Level 99 MCG/ML Date/Time Source Procedure Growth Status 05/21/17 00:00 Urine Random Urine Urine Culture Pending Received Labs reviewed. Depakote level within the therapeutic range and ammonia level not elevated. Urine culture is growing out greater than 100,000 gram-negative rods. Vitals/IOs Vital Signs Date Time Temp Pulse Resp B/P (MAP) Pulse Ox O2 Delivery O2 Flow Rate FiO2 05/22/17 06:05 98.8 87 16 99/56 (70) 99 Assessment & Plan Problem List: (1) Bipolar affective disorder, current episode manic with psychotic symptoms ICD Codes: F31.2 - Bipolar affective disorder, current episode manic with psychotic symptoms Status: Chronic (2) Non compliance w medication regimen ICD Codes: Z91.14 - Patient's other noncompliance with medication regimen Assessment & Plan Patient seems to be improving with current psychotropic regimen. Continue Depakote and Navane as ordered. Initiate Macrobid given urine culture results. Hospitalist input noted and appreciated. Continue to monitor on the inpatient unit. Continue other medications and care as ordered. Justification for Cont. Inpt. High risk for decompensation in less restrictive environment. Discharge Planning Placement versus state psychiatric hospitalization, pending outcome of [address]. Request HC Surrog/Guard Advoc?: Yes Osiel Davis MD May 22, 2017 09:49
[2017-05-22 12:57] LABS: HEMATOCRIT 35.1 % (35.0-46.0); MEAN CORPUSCULAR HEMOGLOBIN 28.5 PG (27.0-34.0); MEAN CORPUSCULAR HGB CONC 33.1 % (32.0-36.0); PLATELET COUNT 165 TH/MM3 (150-450); RED BLOOD COUNT 4.08 MIL/MM3 (4.00-5.30); RED CELL DISTRIBUTION WIDTH 16.9 % (11.6-17.2); REVIEW FLAG FINAL; WHITE BLOOD COUNT 4.5 TH/MM3 (4.0-11.0)
[2017-05-22 17:13] LABS: BICARBONATE 18.6 MEQ/L (21.0-32.0); POTASSIUM 4.5 MEQ/L (3.5-5.1)
[2017-05-22 17:15] VITALS: BP 112/57; PULSE 62; RESP 16; TEMP 97.6; O2SAT 98
[2017-05-22] MEDS: NITROFURANTOIN MONOHYD MACROCR 100 MG CAP PO SCH (17:16)
[2017-05-22] MEDS: REMOVE OLD NICOTINE PATCH T-DERMAL SCH (20:13)
[2017-05-23 05:59] VITALS: BP 129/60; PULSE 79; RESP 20; TEMP 98.2; O2SAT 97
[2017-05-23] MEDS: INSULIN ASPART SUPPLEMENTAL SCALE SQ SCH ×4 (08:00→21:00)
[2017-05-23] MEDS: THIOTHIXENE 5 MG CAP PO SCH ×3 (09:00→21:09)
[2017-05-23] MEDS: NICOTINE 21 MG/24 HR PATCH T-DERMAL SCH (09:00)
[2017-05-23] MEDS: DIVALPROEX SODIUM E.R. 250 MG TAB PO SCH (09:22)
[2017-05-23] MEDS: METOPROLOL TARTRATE 25 MG TAB PO SCH ×2 (09:23→21:09)
[2017-05-23] MEDS: FAMOTIDINE 20 MG TAB PO SCH ×2 (09:23→21:10)
[2017-05-23] MEDS: NITROFURANTOIN MONOHYD MACROCR 100 MG CAP PO SCH ×2 (09:23→18:00)
[2017-05-23] MEDS: RIVAROXABAN 20 MG TAB PO SCH (09:24)
--- NOTE | 2017-05-23 10:06 | HHI.PYPN ---
Subjective Chief Complaint: Mala Remarks Patient seen and examined. Chart reviewed. Case discussed with nursing staff. Case discussed in treatment team. On my examination today, patient presents with stabilizing mood. She has a somewhat silly affect, but thought process seems fairly linear and other features of presenting mala are fairly attenuated. No SI or HI. Denies side effects from medications. No physical complaints. Requesting transfer to Dr. Ca's service as she does not like my plan for placement or state hospitalization. I did speak with Dr. Ca, and he declines the case at this time. Review of Systems ROS Limitations: Poor Historian Except as stated in HPI: all other systems reviewed are Neg Mental Status Examination Appearance: Disheveled (mild) Consciousness: Alert Orientation: Person, Place Motor Activity: Other (No abnormal motor movements noted.) Speech: Unremarkable Language: Adequate Fund of Knowledge: Adequate Attention and Concentration: Adequate Memory: Unremarkable Mood: Other (stabilizing) Affect: Other (silly) Thought Process & Associations: Linear (fairly linear) Thought Content: Bizarre thinking Hallucination Type: None Delusion Type: None Suicidal Ideation: No (remains unreliable to contract for safety) Homicidal Ideation: No Insight: Poor Judgment: Poor Results Labs Test 05/22/17 11:40 White Blood Count 4.5 TH/MM3 Red Blood Count 4.08 MIL/MM3 Hemoglobin 11.6 GM/DL Hematocrit 35.1 % Mean Corpuscular Volume 86.0 FL Mean Corpuscular Hemoglobin 28.5 PG Mean Corpuscular Hemoglobin Concent 33.1 % Red Cell Distribution Width 16.9 % Platelet Count 165 TH/MM3 Mean Platelet Volume 11.1 FL Date/Time Source Procedure Growth Status 05/21/17 00:00 Urine Random Urine Urine Culture - Preliminary Gram Negative Khai Resulted Labs reviewed. CBC unremarkable. BMP reveals stable renal function. Urine culture growing out Escherichia coli sensitive to nitrofurantoin. Vitals/IOs Vital Signs Date Time Temp Pulse Resp B/P (MAP) Pulse Ox O2 Delivery O2 Flow Rate FiO2 05/23/17 05:59 98.2 79 20 129/60 (83) 97 Intake and Output 05/23/17 05/23/17 05/24/17 08:00 16:00 00:00 Intake Total 240 ml Balance 240 ml Assessment & Plan Problem List: (1) Bipolar affective disorder, current episode manic with psychotic symptoms ICD Codes: F31.2 - Bipolar affective disorder, current episode manic with psychotic symptoms Status: Chronic (2) Non compliance w medication regimen ICD Codes: Z91.14 - Patient's other noncompliance with medication regimen Assessment & Plan Continue Depakote and Navane as ordered. Continue Macrobid for UTI. Continue other medications and care as ordered. Justification for Cont. Inpt. Risk for decompensation in less restrictive environment Discharge Planning Placement versus state psychiatric hospitalization given patient's lengthy history of medication nonadherence with resultant psychiatric decompensation and functional decline. Request HC Surrog/Guard Advoc?: Yes Osiel Davis MD May 23, 2017 10:06
[2017-05-23 18:00] VITALS: BP 128/60; PULSE 70; RESP 20; TEMP 98.2; O2SAT 98
[2017-05-23] MEDS: REMOVE OLD NICOTINE PATCH T-DERMAL SCH (21:00)
[2017-05-24 06:00] VITALS: BP 133/59; PULSE 68; RESP 16; TEMP 97.8; O2SAT 99
[2017-05-24] MEDS: INSULIN ASPART SUPPLEMENTAL SCALE SQ SCH ×4 (06:19→21:00)
[2017-05-24] MEDS: FAMOTIDINE 20 MG TAB PO SCH ×2 (08:17→20:45)
[2017-05-24] MEDS: NITROFURANTOIN MONOHYD MACROCR 100 MG CAP PO SCH ×2 (08:17→17:27)
[2017-05-24] MEDS: RIVAROXABAN 20 MG TAB PO SCH (08:18)
[2017-05-24] MEDS: METOPROLOL TARTRATE 25 MG TAB PO SCH ×2 (08:18→20:45)
[2017-05-24] MEDS: DIVALPROEX SODIUM E.R. 250 MG TAB PO SCH (08:18)
[2017-05-24] MEDS: NICOTINE 21 MG/24 HR PATCH T-DERMAL SCH (08:18)
[2017-05-24] MEDS: THIOTHIXENE 5 MG CAP PO SCH ×3 (08:22→20:45)
--- NOTE | 2017-05-24 08:59 | HHI.PYPN ---
Subjective Chief Complaint: Mala Remarks Patient seen and examined. Chart reviewed. Case discussed with nursing staff. I find the patient speaking with her roommate. They seem to be having a fairly appropriate conversation. On my exam, patient presents as fairly linear and lucid. 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 Somewhat disinhibited and intrusive; wants to know if I dye my hair. Denies side effects from medications. No physical complaints. Review of Systems ROS Limitations: Poor Historian Except as stated in HPI: all other systems reviewed are Neg ( ) Mental Status Examination Appearance: Appropriate (Grooming improved versus admission) Consciousness: Alert Orientation: Person, Place Motor Activity: Other (No motor abnormalities noted) Speech: Unremarkable Language: Adequate Fund of Knowledge: Adequate Attention and Concentration: Adequate Memory: Unremarkable Mood: Good Affect: Appropriate Thought Process & Associations: Linear Thought Content: Appropriate Hallucination Type: None Delusion Type: None Suicidal Ideation: No Homicidal Ideation: No Insight: Poor Judgment: Poor Results Labs Date/Time Source Procedure Growth Status 05/21/17 00:00 Urine Random Urine Urine Culture - Final Escherichia Coli Complete Labs reviewed. Vitals/IOs Vital Signs Date Time Temp Pulse Resp B/P (MAP) Pulse Ox O2 Delivery O2 Flow Rate FiO2 05/24/17 06:00 97.8 68 16 133/59 (83) 99 Intake and Output 05/24/17 05/24/17 05/25/17 08:00 16:00 00:00 Intake Total 240 ml Balance 240 ml Assessment & Plan Problem List: (1) Bipolar affective disorder, current episode manic with psychotic symptoms ICD Codes: F31.2 - Bipolar affective disorder, current episode manic with psychotic symptoms Status: Chronic (2) Non compliance w medication regimen ICD Codes: Z91.14 - Patient's other noncompliance with medication regimen Assessment & Plan Continue Depakote and Navane as ordered. Case discussed briefly with nurse practitioner from hospitalist service who was in to see the patient today. Continue to monitor on the inpatient unit. Continue other medications and care as ordered. Justification for Cont. Inpt. High risk for decompensation in less restrictive environment. Discharge Planning Pending outcome of [place] tomorrow. Request HC Surrog/Guard Advoc?: Yes Osiel Davis MD May 24, 2017 08:59
--- NOTE | 2017-05-24 11:38 | PD.TTN ---
Patient Problems 1. Discharge planning 2. Medication compliance 3. Knowledge deficit 4. Lack of coping skills Progress Toward Goals Provider Present: Dr. Paris Davis Provider Input: 05/23/2017 @ 9am: Per doctor at this point in treatment sending patient to the [facility] is the less restricted option, patient continues to be monitor for behavior improvement. Pt requires further stabilization and medication regiment will be evaluated/adjusted. Pt will be referred for placement at a facility or [facility] as appropriate. Nurse(s) Present: TIAGO Goyal Nurse(s) Input: 05/23/2017; per RN patient is sleeping well, she has no major or minor compliant outside of wanting to be discharged home; patient continues with inappropriate thougths unrelated with treatment. Pt slept well, has been compliant and has no behavioral issues on unit. She appears religiously preoccupied. Psychiatric Counselors Present: JOVAN Chavez Psych Therapist Input: 05/23/2017 @ 9am patient continues to be redirected with meaningful feedback reality based thoughts. Counselor will discuss safety concerns with patient surrounding [facility] admission and her lack of insight. Pt appears disorganized, bizarre, labile, cooperative and appropriate. She continues to present with poor insight into condition and need for care. She has been compliant with medication on unit but has a history of chronic noncompliance at home leading to numerous admissions. Pt presents with limited coping and emotional regulation skills as she has been observed to be yelling out random words on the unit. No noted aggression. She denied any mood symptoms at this time as well as perceptive disturbances though she appears preoccupied. Group Spec/RT/OT/CHENG Present: SKYLAR Musa Group Spec/RT/OT/CHENG Input: 05/23/2017@ 9am patient has been participating with groups and activities Pt has not attended groups. Discharge Plan Pt will be referred to a facility or will be referred to [facility] depending on progress of condition. Documentation Scribe: JOVAN Red Teaching Recipient: Patient GonzálezBettina ALDANA May 24, 2017 11:38
--- NOTE | 2017-05-24 12:29 | HHI.PR ---
Subjective Remarks OOB using walker. Alert and cooperative Objective Vital Signs Date Time Temp Pulse Resp B/P (MAP) Pulse Ox O2 Delivery O2 Flow Rate FiO2 05/24/17 06:00 97.8 68 16 133/59 (83) 99 05/23/17 18:00 98.2 70 20 128/60 (82) 98 I/O 05/23/17 05/23/17 05/23/17 05/24/17 05/24/17 05/24/17 07:00 15:00 23:00 07:00 15:00 23:00 Intake Total 0 ml 480 ml 1440 ml 240 ml Balance 0 ml 480 ml 1440 ml 240 ml Intake Oral 0 ml 480 ml 1440 ml 240 ml # Voids 2 6 1 Result Diagram: 05/22/17 1140 05/22/17 0850 Objective Remarks GENERAL: Alert and cooperative SKIN: Warm and dry. Bilateral mild lower extremity edema HEAD: Normocephalic. EYES: No scleral icterus. No injection or drainage. NECK: Supple, trachea midline. No JVD or lymphadenopathy. CARDIOVASCULAR: Regular rate and rhythm without murmurs, gallops, or rubs. RESPIRATORY: Breath sounds equal bilaterally. No accessory muscle use. GASTROINTESTINAL: Abdomen soft, non-tender, nondistended. MUSCULOSKELETAL: No cyanosis, or edema. BACK: Nontender without obvious deformity. No CVA tenderness. Medications and IVs Current Medications Medications (Trade) Dose Ordered Sig/Valentina Route Start Time Stop Time Status Last Admin (Ativan) 0.5 mg Q12H PRN PO 05/17/17 03:00 (Ativan Inj) 0.5 mg Q12H PRN IM 05/17/17 03:00 (Tylenol) 650 mg Q4H PRN PO 05/17/17 03:00 (Milk Of Magnesia Liq) 30 ml DAILY PRN PO 05/17/17 03:00 (Mag-Al Plus Susp Liq) 30 ml Q6H PRN PO 05/17/17 03:00 (Depakote Er) 1,250 mg DAILY PO 05/17/17 10:15 05/24/17 08:18 (Pepcid) 10 mg BID PO 05/17/17 10:15 05/24/17 08:17 (Lopressor) 12.5 mg Q12HR PO 05/17/17 10:15 05/24/17 08:18 (Xarelto) 20 mg DAILY PO 05/17/17 10:15 05/24/17 08:18 (D50w (Vial) Inj) 50 ml UNSCH PRN IV PUSH 05/17/17 10:30 (Glucagon Inj) 1 mg UNSCH PRN OTHER 05/17/17 10:30 (NovoLOG SUPPLEMENTAL SCALE) 1 ACHS SLIDING SCALE SQ 05/17/17 12:00 05/22/17 16:00 (ZyPREXA INJ) 10 mg Q12H PRN IM 05/18/17 14:30 (Navane) 5 mg DAILY@0900,1400,2100 PO 05/19/17 14:14 05/24/17 08:22 (Macrobid) 100 mg BIDPC PO 05/22/17 18:00 05/24/17 08:17 Assessment and Plan Problem List: (1) Bipolar affective disorder, current episode manic with psychotic symptoms ICD Codes: F31.2 - Bipolar affective disorder, current episode manic with psychotic symptoms Status: Chronic (2) HX LEFT LEG DVT Status: Resolved (3) Non compliance w medication regimen ICD Codes: Z91.14 - Patient's other noncompliance with medication regimen (4) Hypertension ICD Codes: I10 - Hypertension Status: Acute (5) Non-insulin dependent type 2 diabetes mellitus ICD Codes: E11.9 - Non-insulin dependent type 2 diabetes mellitus Status: Chronic Assessment and Plan 05/18/17 Bipolar affective disorder: Psych is managing. Patient is mena. Reports non compliance with medication HTN: Continue metoprolol and amlodipine. B/P 116/61 HX of DVT: continue xarelto Diabetes; Well controlled all blood sugars less than 200mg/dl. Not on medication 05/22/17 Bipolar affective disorder: Alert and cooperative this morning. Psych is managing. HTN: Blood pressure running on lower side will discontinue amlodipine. Fluids encouraged. Has mild lower extremity edema could be related to Norvasc Diabetes: BS well controlled Labs ordered and UA is pending 05/24/17 Bipolar disorder: psych managing. Patient is lucid and reports that she wants to go home HTN: Well controlled diabetes; BS well controlled UTI: Macrobid with stop date of the I and the EXTENSION COURSE COORDINATOR have both examined this a patient and reviewed this note and I agree with these findings and plan of care. Abdoulaye Barclay DO Discussed Condition With Nursing Odette Khoury May 24, 2017 12:29
[2017-05-24 18:08] VITALS: BP 124/58; PULSE 68; RESP 16; TEMP 98.2; O2SAT 100
[2017-05-25 05:46] VITALS: BP 120/58; PULSE 66; RESP 18; TEMP 97.9; O2SAT 100
[2017-05-25] MEDS: INSULIN ASPART SUPPLEMENTAL SCALE SQ SCH ×4 (06:39→20:50)
[2017-05-25] MEDS: NITROFURANTOIN MONOHYD MACROCR 100 MG CAP PO SCH ×2 (09:28→17:54)
[2017-05-25] MEDS: RIVAROXABAN 20 MG TAB PO SCH (09:28)
[2017-05-25] MEDS: THIOTHIXENE 5 MG CAP PO SCH ×3 (09:28→20:50)
[2017-05-25] MEDS: FAMOTIDINE 20 MG TAB PO SCH ×2 (09:29→20:50)
[2017-05-25] MEDS: DIVALPROEX SODIUM E.R. 250 MG TAB PO SCH (09:29)
[2017-05-25] MEDS: METOPROLOL TARTRATE 25 MG TAB PO SCH ×2 (09:30→20:50)
--- NOTE | 2017-05-25 10:06 | HHI.PYPN ---
Subjective Chief Complaint: Mala Remarks Patient seen and case discussed with nursing staff. Chart reviewed. For me today, patient presents as somewhat oppositional. Affect remains a little labile. She minimizes the circumstances of her presentation here and takes no responsibility for medication non-adherence that led to her decompensation. Insight into her mental illness and judgement are both quite poor. No evidence side effects from medications. No physical complaints. Patient's case was presented to the [place] and the patient was retained on the unit by the pumper gauger apprentice with a GA from [facility]. It comes out during court that the patient has been driving, and the pumper gauger apprentice suggests that the patient should not be driving given her condition. In light of her poor judgement, frequent non-adherence with treatment, and erratic behavior when unstable, I agree with the pumper gauger apprentice and have asked the counselor to draw up the necessary paperwork to submit to the state to have driving privileges suspended for medical reasons. Review of Systems ROS Limitations: Poor Historian Except as stated in HPI: all other systems reviewed are Neg Mental Status Examination Appearance: Appropriate Consciousness: Alert Orientation: Person, Place Motor Activity: Other (no abnormal motor movements noted) Speech: Unremarkable Language: Adequate Fund of Knowledge: Adequate Attention and Concentration: Adequate Memory: Unremarkable Mood: Oppositional Affect: Labile (mild) Thought Process & Associations: Other (somewhat perseverative) Thought Content: Appropriate Hallucination Type: None Delusion Type: None Suicidal Ideation: No Homicidal Ideation: No Insight: Poor Judgment: Poor Results Labs Date/Time Source Procedure Growth Status 05/21/17 00:00 Urine Random Urine Urine Culture - Final Escherichia Coli Complete Labs reviewed Vitals/IOs Vital Signs Date Time Temp Pulse Resp B/P (MAP) Pulse Ox O2 Delivery O2 Flow Rate FiO2 05/25/17 05:46 97.9 66 18 120/58 (78) 100 Intake and Output 05/25/17 05/25/17 05/26/17 08:00 16:00 00:00 Intake Total 120 ml Balance 120 ml Assessment & Plan Problem List: (1) Bipolar affective disorder, current episode manic with psychotic symptoms ICD Codes: F31.2 - Bipolar affective disorder, current episode manic with psychotic symptoms Status: Chronic (2) Non compliance w medication regimen ICD Codes: Z91.14 - Patient's other noncompliance with medication regimen Assessment & Plan Continue Depakote and Navane as ordered but to consider titration of Navane should affective lability persist. Hospitalist input noted and appreciated. Continue to monitor on the inpatient unit. Continue other medications and care as ordered. Justification for Cont. Inpt. High risk for decompensation in less restrictive environment Discharge Planning Placement, likely on locked unit. I will initiate a [facility] referral in case no satisfactory placement can be found. Case discussed with counselor. Request HC Surrog/Guard Advoc?: Yes Osiel Davis MD May 25, 2017 10:06
[2017-05-25 18:08] VITALS: BP 148/68; PULSE 68; RESP 18; TEMP 97.8; O2SAT 96
[2017-05-26 05:37] VITALS: BP 167/79; PULSE 68; RESP 17; TEMP 97.5; O2SAT 97
[2017-05-26] MEDS: INSULIN ASPART SUPPLEMENTAL SCALE SQ SCH ×4 (08:00→21:00)
[2017-05-26] MEDS: DIVALPROEX SODIUM E.R. 250 MG TAB PO SCH (08:51)
[2017-05-26] MEDS: FAMOTIDINE 20 MG TAB PO SCH ×2 (08:52→23:04)
[2017-05-26] MEDS: NITROFURANTOIN MONOHYD MACROCR 100 MG CAP PO SCH ×2 (08:52→17:42)
[2017-05-26] MEDS: METOPROLOL TARTRATE 25 MG TAB PO SCH ×2 (08:53→23:04)
[2017-05-26] MEDS: RIVAROXABAN 20 MG TAB PO SCH (08:53)
[2017-05-26] MEDS: THIOTHIXENE 5 MG CAP PO SCH ×3 (08:53→23:43)
--- NOTE | 2017-05-26 14:27 | HHI.PYPN ---
Subjective Chief Complaint: Mala Remarks Patient seen and examined with [facility] health tech. Chart reviewed. Case discussed in treatment team. On my exam, patient somewhat oppositional, but there is no evidence of mood lability today. No psychotic symptoms. I discuss treatment team recommendations for placement in structured living environment, and she is resistant to this plan. She then says that she can no longer speak with me and that we are "enemies." She denies side effects from medications. No physical complaints. Review of Systems ROS Limitations: Poor Historian Except as stated in HPI: all other systems reviewed are Neg Mental Status Examination Appearance: Appropriate Consciousness: Alert Orientation: Person, Place (at least) Motor Activity: Other (No motor abnormalities noted.) Speech: Unremarkable Language: Adequate Fund of Knowledge: Adequate Attention and Concentration: Adequate Memory: Unremarkable Mood: Oppositional Affect: Blunt Thought Process & Associations: Other (somewhat perseverative) Thought Content: Appropriate Hallucination Type: None Delusion Type: None Suicidal Ideation: No Homicidal Ideation: No Insight: Poor Judgment: Poor Results Labs Date/Time Source Procedure Growth Status 05/21/17 00:00 Urine Random Urine Urine Culture - Final Escherichia Coli Complete Labs reviewed. No new labs. Vitals/IOs Vital Signs Date Time Temp Pulse Resp B/P (MAP) Pulse Ox O2 Delivery O2 Flow Rate FiO2 05/26/17 05:37 97.5 68 17 167/79 (108) 97 Assessment & Plan Problem List: (1) Bipolar affective disorder, current episode manic with psychotic symptoms ICD Codes: F31.2 - Bipolar affective disorder, current episode manic with psychotic symptoms Status: Chronic (2) Non compliance w medication regimen ICD Codes: Z91.14 - Patient's other noncompliance with medication regimen Assessment & Plan Continue Depakote and Navane as ordered. Continue to monitor on inpatient unit. Continue other meds and care as ordered. I have completed medical reporting form from [employer] and placed copy on chart. Justification for Cont. Inpt. Risk for decompensation in less restrictive environment. Discharge Planning Placement versus state hospital. Request HC Surrog/Guard Advoc?: Yes Osiel Davis MD May 26, 2017 14:27
--- NOTE | 2017-05-26 15:58 | PD.TTN ---
Patient Problems 1. Discharge planning 2. Medication compliance 3. Knowledge deficit 4. Lack of coping skills Progress Toward Goals Provider Present: Dr. Hira Poe Provider Input: 05/26/2017 patient patient is being staff for a locked or sensor sensitive doors facility by counselor and family 05/23/2017 @ 9am: Per doctor at this point in treatment sending patient to the [facility] is the less restricted option, patient continues to be monitor for behavior improvement. Pt requires further stabilization and medication regiment will be evaluated/adjusted. Pt will be referred for placement at a facility or [facility] as appropriate. Nurse(s) Present: TIAGO Goyal Nurse(s) Input: 05/26/2017 patient is sleeping eating and taking her medication 05/23/2017; per RN patient is sleeping well, she has no major or minor compliant outside of wanting to be discharged home; patient continues with inappropriate thougths unrelated with treatment. Pt slept well, has been compliant and has no behavioral issues on unit. She appears religiously preoccupied. Psychiatric Counselors Present: JOVAN Red Psych Therapist Input: 05/26/2017 Counselor has began the process for [facility] facility assisting family with appropriate placement 05/23/2017 @ 9am patient continues to be redirected with meaningful feedback reality based thoughts. Counselor will discuss safety concerns with patient surrounding [facility] admission and her lack of insight. Pt appears disorganized, bizarre, labile, cooperative and appropriate. She continues to present with poor insight into condition and need for care. She has been compliant with medication on unit but has a history of chronic noncompliance at home leading to numerous admissions. Pt presents with limited coping and emotional regulation skills as she has been observed to be yelling out random words on the unit. No noted aggression. She denied any mood symptoms at this time as well as perceptive disturbances though she appears preoccupied. Group Spec/RT/OT/CHENG Present: SKYLAR Musa Group Spec/RT/OT/CHENG Input: 05/23/2017@ 9am patient has been participating with groups and activities Pt has not attended groups. Discharge Plan Pt will be referred to a facility or will be referred to [facility] depending on progress of condition. Documentation Scribe: JOVAN Red Teaching Recipient: Patient GonzálezBettina ALDANA May 26, 2017 15:58
[2017-05-26 18:25] VITALS: BP 107/57; PULSE 61; RESP 17; TEMP 98.3; O2SAT 98
[2017-05-27 05:46] VITALS: BP 124/62; PULSE 71; RESP 17; TEMP 97.7; O2SAT 100
[2017-05-27] MEDS: INSULIN ASPART SUPPLEMENTAL SCALE SQ SCH ×4 (08:00→21:00)
[2017-05-27] MEDS: THIOTHIXENE 5 MG CAP PO SCH ×3 (09:00→21:00)
[2017-05-27] MEDS: RIVAROXABAN 20 MG TAB PO SCH (09:00)
[2017-05-27] MEDS: FAMOTIDINE 20 MG TAB PO SCH ×2 (09:29→21:00)
[2017-05-27] MEDS: DIVALPROEX SODIUM E.R. 250 MG TAB PO SCH (09:29)
[2017-05-27] MEDS: METOPROLOL TARTRATE 25 MG TAB PO SCH ×2 (09:29→21:00)
[2017-05-27 17:29] VITALS: BP 123/65; PULSE 71; RESP 17; TEMP 97.8; O2SAT 99
--- NOTE | 2017-05-27 19:12 | HHI.PYPN ---
Subjective Chief Complaint: Mala Remarks Pt seen and discussed with staff. Pt reports that she is doing well but is upset because she cannot afford psychiatric medication. She states that she is ineligible for medicare (despite having medicare) because her daughter has a brain tumor. She insists that "get Dr. Ruiz to do right". No SI/HI. No agitation. Mental Status Examination Appearance: Appropriate Consciousness: Alert Orientation: Person, Place (at least) Motor Activity: Other (No motor abnormalities noted.) Speech: Unremarkable Language: Adequate Fund of Knowledge: Adequate Attention and Concentration: Adequate Memory: Unremarkable Mood: Other (elevated) Affect: Other (bizarre facial expressions) Thought Process & Associations: Other (somewhat perseverative) Thought Content: Delusional Hallucination Type: None Delusion Type: Bizarre Suicidal Ideation: No Suicidal Plan: No Suicidal Intention: No Homicidal Ideation: No Homicidal Plan: No Homicidal Intention: No Insight: Poor Judgment: Poor Results Labs Date/Time Source Procedure Growth Status 05/21/17 00:00 Urine Random Urine Urine Culture - Final Escherichia Coli Complete Vitals/IOs Vital Signs Date Time Temp Pulse Resp B/P (MAP) Pulse Ox O2 Delivery O2 Flow Rate FiO2 05/27/17 17:29 97.8 71 17 123/65 (84) 99 Intake and Output 05/27/17 05/27/17 05/28/17 08:00 16:00 00:00 Intake Total 480 ml 480 ml 1440 ml Balance 480 ml 480 ml 1440 ml Assessment & Plan Problem List: (1) Bipolar affective disorder, current episode manic with psychotic symptoms ICD Codes: F31.2 - Bipolar affective disorder, current episode manic with psychotic symptoms Status: Chronic (2) Non compliance w medication regimen ICD Codes: Z91.14 - Patient's other noncompliance with medication regimen Assessment & Plan Continue current tx plan. Estimated LOS: days Justification for Cont. Inpt. risk of decompensation Request HC Surrog/Guard Advoc?: Yes Betsy Bacon MD May 27, 2017 19:12
[2017-05-28 06:35] VITALS: BP 108/57; PULSE 74; RESP 16; TEMP 98; O2SAT 97
[2017-05-28] MEDS: INSULIN ASPART SUPPLEMENTAL SCALE SQ SCH ×4 (08:00→20:59)
[2017-05-28] MEDS: FAMOTIDINE 20 MG TAB PO SCH ×2 (08:34→21:56)
[2017-05-28] MEDS: METOPROLOL TARTRATE 25 MG TAB PO SCH ×2 (08:34→21:00)
[2017-05-28] MEDS: RIVAROXABAN 20 MG TAB PO SCH (08:34)
[2017-05-28] MEDS: DIVALPROEX SODIUM E.R. 250 MG TAB PO SCH (08:34)
[2017-05-28] MEDS: THIOTHIXENE 5 MG CAP PO SCH ×3 (08:34→21:56)
--- NOTE | 2017-05-28 11:17 | HHI.PR ---
Subjective Remarks resting quietly remains delusional Objective Vital Signs Date Time Temp Pulse Resp B/P (MAP) Pulse Ox O2 Delivery O2 Flow Rate FiO2 05/28/17 06:35 98.0 74 16 108/57 (74) 97 05/27/17 17:29 97.8 71 17 123/65 (84) 99 I/O 05/27/17 05/27/17 05/27/17 05/28/17 05/28/17 05/28/17 07:00 15:00 23:00 07:00 15:00 23:00 Intake Total 960 ml 2400 ml 240 ml Balance 960 ml 2400 ml 240 ml Intake Oral 960 ml 2400 ml 240 ml # Voids 2 2 Objective Remarks GENERAL: Well-nourished, well-developed patient. SKIN: Warm and dry. HEAD: Normocephalic. EYES: No scleral icterus. No injection or drainage. NECK: Supple, trachea midline. No JVD or lymphadenopathy. CARDIOVASCULAR: Regular rate and rhythm without murmurs, gallops, or rubs. RESPIRATORY: Breath sounds equal bilaterally. No accessory muscle use. GASTROINTESTINAL: Abdomen soft, non-tender, nondistended. EXTREMITIES: No cyanosis, or edema. NEUROLOGICAL:wake confused calm Medications and IVs Inpatient Medications Acetaminophen (Tylenol) 650 mg Q4H PRN PO Pain 1-5 or Temp >101F; Start at 03:00 Al Hydrox/Mg Hydrox/Simethicone (Mag-Al Plus Susp Liq) 30 ml Q6H PRN PO DYSPEPSIA; Start 05/17/17 at 03:00 Amlodipine Besylate (Norvasc) 5 mg DAILY PO Last administered on 05/21/17 08: 44; Start 05/17/17 at 10:15; Stop 05/22/17 at 08:04; Status DC Dextrose (D50w (Vial) Inj) 50 ml UNSCH PRN IV PUSH HYPOGLYCEMIA-SEE COMMENTS; Start 05/17/17 at 10:30 Diphenhydramine HCl (Benadryl Inj) 50 mg STAT STAT IM Last administered on 07:35; Start 05/18/17 at 07:35; Stop 05/18/17 at 07:43; Status DC Divalproex Sodium (Depakote Er) 1,250 mg DAILY PO Last administered on 08:34; Start 05/17/17 at 10:15 Famotidine (Pepcid) 10 mg BID PO Last administered on 05/28/17 08:34; Start 05/17/17 at 10:15 Glucagon (Glucagon Inj) 1 mg UNSCH PRN OTHER HYPOGLYCEMIA-SEE COMMENTS; Start 05/17/17 at 10:30 Insulin Aspart (NovoLOG SUPPLEMENTAL SCALE) 1 ACHS SLIDING SCALE SQ Last administered on 05/22/17 16:00; Start 05/17/17 at 12:00 Lorazepam (Ativan Inj) 0.5 mg Q12H PRN IM MODERATE TO SEVERE ANXIETY; Start at 03:00 Lorazepam (Ativan) 0.5 mg Q12H PRN PO MODERATE TO SEVERE ANXIETY; Start at 03:00 Magnesium Hydroxide (Milk Of Magnesia Liq) 30 ml DAILY PRN PO CONSTIPATION; Start 05/17/17 at 03:00 Metoprolol Tartrate (Lopressor) 12.5 mg Q12HR PO Last administered on 08:34; Start 05/17/17 at 10:15 Miscellaneous Information 1 HS T-DERMAL ; Start 05/17/17 at 21:00; Stop at 11:22; Status DC Nicotine (Habitrol 21 Mg Patch.24 Hr) 1 patch DAILY T-DERMAL ; Start 05/17/17 at 09:00; Stop 05/24/17 at 11:22; Status DC Nitrofurantoin Macrocrystals (Macrobid) 100 mg BIDPC PO Last administered on 17:42; Start 05/22/17 at 18:00; Stop 05/26/17 at 18:00; Status DC Olanzapine (ZyPREXA INJ) 10 mg Q12H PRN IM REFUSES PO PSYCHOTROPICS; Start 05/18/17 at 14:30 Rivaroxaban (Xarelto) 20 mg DAILY PO Last administered on 05/28/17 08:34; Start 05/17/17 at 10:15 Thiothixene (Navane) 5 mg DAILY@0900,1400,2100 PO Last administered on 08:34; Start 05/19/17 at 14:14 Assessment and Plan Problem List: (1) Noncompliance ICD Codes: Z91.19 - Noncompliance Status: Acute (2) Bipolar affective disorder, current episode manic with psychotic symptoms ICD Codes: F31.2 - Bipolar affective disorder, current episode manic with psychotic symptoms Status: Chronic Plan: would benefit from depo meds or inpatient terminal gauger (3) Non compliance w medication regimen ICD Codes: Z91.14 - Patient's other noncompliance with medication regimen Assessment and Plan discussed depo injections pt agrees Abdoulaye Barclay DO May 28, 2017 11:17
--- NOTE | 2017-05-28 16:27 | HHI.PYPN ---
Subjective Chief Complaint: Mala Remarks Pt seen and discussed with staff. She remains delusional and paranoid. She wrote author a 3 page disorganized letter of all of her expenses. No SI/HI. She is compliant with medications and denies side effects Mental Status Examination Appearance: Appropriate Consciousness: Alert Orientation: Person, Place (at least) Motor Activity: Other (No motor abnormalities noted.) Speech: Unremarkable Language: Adequate Fund of Knowledge: Adequate Attention and Concentration: Adequate Memory: Unremarkable Mood: Other (elevated) Affect: Other (bizarre facial expressions) Thought Process & Associations: Other ( perseverative) Thought Content: Delusional Hallucination Type: None Delusion Type: Bizarre Suicidal Ideation: No Suicidal Plan: No Suicidal Intention: No Homicidal Ideation: No Homicidal Plan: No Homicidal Intention: No Insight: Poor Judgment: Poor Results Labs Test 05/28/17 12:22 Free Triiodothyronine (T3) pg/dL 2.10 PG/ML Date/Time Source Procedure Growth Status 05/21/17 00:00 Urine Random Urine Urine Culture - Final Escherichia Coli Complete Vitals/IOs Vital Signs Date Time Temp Pulse Resp B/P (MAP) Pulse Ox O2 Delivery O2 Flow Rate FiO2 05/28/17 06:35 98.0 74 16 108/57 (74) 97 Intake and Output 05/28/17 05/28/17 05/29/17 08:00 16:00 00:00 Intake Total 240 ml 240 ml Balance 240 ml 240 ml Assessment & Plan Problem List: (1) Bipolar affective disorder, current episode manic with psychotic symptoms ICD Codes: F31.2 - Bipolar affective disorder, current episode manic with psychotic symptoms Status: Chronic (2) Non compliance w medication regimen ICD Codes: Z91.14 - Patient's other noncompliance with medication regimen Assessment & Plan Continue current tx plan. Estimated LOS: days Justification for Cont. Inpt. impairments in reality testing Request HC Surrog/Guard Advoc?: Yes Betsy Bacon MD May 28, 2017 16:27
[2017-05-28 18:08] VITALS: BP 108/62; PULSE 62; RESP 16; TEMP 98.7; O2SAT 100
[2017-05-29 06:09] VITALS: BP 125/64; PULSE 65; RESP 16; TEMP 97.3; O2SAT 97
[2017-05-29] MEDS: INSULIN ASPART SUPPLEMENTAL SCALE SQ SCH ×4 (08:00→21:00)
[2017-05-29] MEDS: FAMOTIDINE 20 MG TAB PO SCH ×2 (08:53→21:00)
[2017-05-29] MEDS: DIVALPROEX SODIUM E.R. 250 MG TAB PO SCH (08:53)
[2017-05-29] MEDS: RIVAROXABAN 20 MG TAB PO SCH (08:53)
[2017-05-29] MEDS: THIOTHIXENE 5 MG CAP PO SCH (08:53)
[2017-05-29] MEDS: METOPROLOL TARTRATE 25 MG TAB PO SCH ×2 (08:54→21:00)
[2017-05-29 09:49] LABS: BASOPHIL % 0.8 % (0.0-2.0); EOSINOPHIL % 1.3 % (0.0-4.0); HEMATOCRIT 37.6 % (35.0-46.0); HEMO FLAGS DIFF FINAL; LYMPH % 27.6 % (9.0-44.0); MEAN CELL VOLUME 86.1 FL (80.0-100.0); MEAN CORPUSCULAR HEMOGLOBIN 28.3 PG (27.0-34.0); MEAN CORPUSCULAR HGB CONC 32.8 % (32.0-36.0); MONO % 13.6 % (0.0-8.0); NEUT % 56.7 % (16.0-70.0); PLATELET COUNT 162 TH/MM3 (150-450); RED BLOOD COUNT 4.37 MIL/MM3 (4.00-5.30); RED CELL DISTRIBUTION WIDTH 16.3 % (11.6-17.2); WHITE BLOOD COUNT 3.6 TH/MM3 (4.0-11.0)
[2017-05-29 10:16] LABS: ANION GAP 7 MEQ/L (5-15); AST (GOT) 12 U/L (15-37); BICARBONATE 24.9 MEQ/L (21.0-32.0); BLOOD UREA NITROGEN 24 MG/DL (7-18); CHLORIDE 105 MEQ/L (98-107); GLOMERULAR FILTRATION RATE 53 ML/MIN (>89); POTASSIUM 3.9 MEQ/L (3.5-5.1); SODIUM (NA) 137 MEQ/L (136-145)
[2017-05-29 10:17] LABS: ALT (GPT) 16 U/L (10-53)
[2017-05-29 10:19] LABS: ALKALINE PHOSPHATASE 90 U/L (45-117); TOTAL BILIRUBIN ADULT 0.3 MG/DL (0.2-1.0)
--- NOTE | 2017-05-29 11:18 | HHI.PYPN ---
Subjective Chief Complaint: Mala Remarks Patient seen and examined with nurse. Chart reviewed. Case discussed with nursing staff and with counselor. Nurse tells me that patient has written a letter requesting that the [place] [employer] not be able to [place] act her anymore. On my examination today, the patient shares with me the letter that she gave to Dr. Bacon regarding her expenses. This letter concludes with a plan to "testify before Congress." Patient is resistant to pursuing any sort of placement and seems to be trying to distract staff with other issues to avoid this eventuality. Family, counselor tells me, is supportive of placement at this time. Patient appears to be stabilizing with respect to her mala, although she does have some ongoing delusions as noted by Dr. Bacon, perhaps suggestive of more of a schizoaffective disorder picture. Denies side effects from medications. No physical complaints. Review of Systems ROS Limitations: Psychotic, Poor Historian Except as stated in HPI: all other systems reviewed are Neg Mental Status Examination Appearance: Appropriate Consciousness: Alert Orientation: Person, Place Motor Activity: Other (No motor abnormalities noted.) Speech: Unremarkable Language: Adequate Fund of Knowledge: Adequate Attention and Concentration: Adequate Memory: Unremarkable Mood: Other (calm) Affect: Blunt Thought Process & Associations: Other (remains a little perseverative) Thought Content: Delusional Hallucination Type: None Delusion Type: Bizarre Suicidal Ideation: No Suicidal Plan: No Suicidal Intention: No Homicidal Ideation: No Homicidal Plan: No Homicidal Intention: No Insight: Poor Judgment: Poor Results Labs Test 05/28/17 12:22 05/29/17 09:17 Free Triiodothyronine (T3) pg/dL 2.10 PG/ML White Blood Count 3.6 TH/MM3 Red Blood Count 4.37 MIL/MM3 Hemoglobin 12.4 GM/DL Hematocrit 37.6 % Mean Corpuscular Volume 86.1 FL Mean Corpuscular Hemoglobin 28.3 PG Mean Corpuscular Hemoglobin Concent 32.8 % Red Cell Distribution Width 16.3 % Platelet Count 162 TH/MM3 Mean Platelet Volume 10.2 FL Neutrophils (%) (Auto) 56.7 % Lymphocytes (%) (Auto) 27.6 % Monocytes (%) (Auto) 13.6 % Eosinophils (%) (Auto) 1.3 % Basophils (%) (Auto) 0.8 % Neutrophils # (Auto) 2.0 TH/MM3 Lymphocytes # (Auto) 1.0 TH/MM3 Monocytes # (Auto) 0.5 TH/MM3 Eosinophils # (Auto) 0.0 TH/MM3 Basophils # (Auto) 0.0 TH/MM3 CBC Comment DIFF FINAL Differential Comment Blood Urea Nitrogen 24 MG/DL Creatinine 1.03 MG/DL Random Glucose 152 MG/DL Total Protein 8.1 GM/DL Albumin 3.3 GM/DL Calcium Level 9.0 MG/DL Alkaline Phosphatase 90 U/L Aspartate Amino Transf (AST/SGOT) 12 U/L Alanine Aminotransferase (ALT/SGPT) 16 U/L Total Bilirubin 0.3 MG/DL Sodium Level 137 MEQ/L Potassium Level 3.9 MEQ/L Chloride Level 105 MEQ/L Carbon Dioxide Level 24.9 MEQ/L Anion Gap 7 MEQ/L Estimat Glomerular Filtration Rate 53 ML/MIN Date/Time Source Procedure Growth Status 05/21/17 00:00 Urine Random Urine Urine Culture - Final Escherichia Coli Complete Labs reviewed. GFR stable. Vitals/IOs Vital Signs Date Time Temp Pulse Resp B/P (MAP) Pulse Ox O2 Delivery O2 Flow Rate FiO2 05/29/17 06:09 97.3 65 16 125/64 (84) 97 Intake and Output 05/29/17 05/29/17 05/30/17 08:00 16:00 00:00 Intake Total 240 ml Balance 240 ml Assessment & Plan Problem List: (1) Bipolar disorder ICD Codes: F31.9 - Bipolar disorder, unspecified Status: Acute Permanent Comment: Rule out schizoaffective disorder, bipolar type Last Edited By: Osiel Davis on May 29, 2017 12:48 (2) Non compliance w medication regimen ICD Codes: Z91.14 - Patient's other noncompliance with medication regimen Assessment & Plan Titrate Navane to 10mg BID to target residual psychotic symptoms. Continue Depakote as ordered. Hospitalist input noted and appreciated. I see notation that patient would benefit from depot psychotropics, and while I would, in theory, agree, I also note that patient was discharged from the inpatient unit last time on Risperdal Consta and this did not seem to alter significantly the course of her illness. I believe she is in need of long-term placement in a structured living environment. Continue to monitor on the inpatient unit. Continue other medications and care as ordered. Justification for Cont. Inpt. Med changes. Impairment in reality construction. Risk for decompensation in less restrictive environment. [facility] Request HC Surrog/Guard Advoc?: Yes Problem Qualifiers (1) Bipolar disorder: Qualified Codes: F31.73 - Bipolar disorder, in partial remission, most recent episode manic Osiel Davis MD May 29, 2017 11:18
[2017-05-29 18:18] VITALS: BP 122/58; PULSE 72; RESP 18; TEMP 97.8; O2SAT 100
[2017-05-29] MEDS: THIOTHIXENE 10 MG CAP PO SCH (21:00)
[2017-05-30 06:03] VITALS: BP_SYST 120; PULSE 81; RESP 16; TEMP 98.8; O2SAT 96
[2017-05-30 07:38] VITALS: BP 120/62
[2017-05-30] MEDS: INSULIN ASPART SUPPLEMENTAL SCALE SQ SCH ×4 (08:00→20:52)
[2017-05-30] MEDS: METOPROLOL TARTRATE 25 MG TAB PO SCH ×2 (09:18→20:52)
[2017-05-30] MEDS: DIVALPROEX SODIUM E.R. 250 MG TAB PO SCH (09:20)
[2017-05-30] MEDS: RIVAROXABAN 20 MG TAB PO SCH (09:20)
[2017-05-30] MEDS: THIOTHIXENE 10 MG CAP PO SCH ×2 (09:21→20:51)
[2017-05-30] MEDS: FAMOTIDINE 20 MG TAB PO SCH ×2 (09:26→20:52)
--- NOTE | 2017-05-30 15:21 | HHI.PYPN ---
Subjective Chief Complaint: Mala Remarks Patient seen and examined with nurse. Chart reviewed. Case discussed with nurse and in treatment team. No behavioral issues per nursing staff. On my examination today, patient is calm and cooperative with exam. Mood seems stable and psychotic symptoms considerably attenuated. Some mild mood lability when patient brings up certain subjects (namely her daughter), but overall affect is fairly stable. No side effects from medications. Complains of mild headache. No other physical complaints. Patient is open to pursuing placement. Review of Systems Except as stated in HPI: all other systems reviewed are Neg Mental Status Examination Appearance: Appropriate Consciousness: Alert Orientation: Person, Place (at least) Motor Activity: Other (No abnormal motor movements noted. No hand tremor, no cogwheeling, no hypomimia.) Speech: Unremarkable Language: Adequate Fund of Knowledge: Adequate Attention and Concentration: Adequate Memory: Unremarkable Mood: Other (remains calm) Affect: Labile (very mild) Thought Process & Associations: Linear Thought Content: Appropriate Hallucination Type: None Delusion Type: None Suicidal Ideation: No Suicidal Plan: No Suicidal Intention: No Homicidal Ideation: No Homicidal Plan: No Homicidal Intention: No Insight: Poor Judgment: Poor Results Labs Date/Time Source Procedure Growth Status 05/21/17 00:00 Urine Random Urine Urine Culture - Final Escherichia Coli Complete Labs reviewed. Vitals/IOs Vital Signs Date Time Temp Pulse Resp B/P (MAP) Pulse Ox O2 Delivery O2 Flow Rate FiO2 05/30/17 07:38 120/62 (81) 05/30/17 06:03 98.8 81 16 96 Intake and Output 05/30/17 05/30/17 05/30/17 07:59 15:59 23:59 Intake Total 360 ml 240 ml Balance 360 ml 240 ml Assessment & Plan Problem List: (1) Bipolar disorder ICD Codes: F31.9 - Bipolar disorder, unspecified Status: Acute Permanent Comment: Rule out schizoaffective disorder, bipolar type Last Edited By: Osiel Davis on May 29, 2017 12:48 (2) Non compliance w medication regimen ICD Codes: Z91.14 - Patient's other noncompliance with medication regimen Assessment & Plan Continue Navane and Depakote as ordered. Ask hospitalist to follow up c/o headache. Continue to monitor on inpatient unit. Continue other meds and care as ordered. Justification for Cont. Inpt. High risk for decompensation in less restrictive environment. Discharge Planning Placement vs. State. Case d/w counselor. Request HC Surrog/Guard Advoc?: Yes Problem Qualifiers (1) Bipolar disorder: Qualified Codes: F31.73 - Bipolar disorder, in partial remission, most recent episode manic Osiel Davis MD May 30, 2017 15:21
[2017-05-30 18:00] VITALS: BP 111/55; PULSE 58; RESP 18; TEMP 97.8; O2SAT 100
[2017-05-31 06:48] VITALS: BP 118/55; PULSE 62; RESP 16; TEMP 98.6; O2SAT 98
[2017-05-31] MEDS: INSULIN ASPART SUPPLEMENTAL SCALE SQ SCH ×4 (08:00→20:32)
[2017-05-31] MEDS: DIVALPROEX SODIUM E.R. 250 MG TAB PO SCH (08:59)
[2017-05-31] MEDS: RIVAROXABAN 20 MG TAB PO SCH (08:59)
[2017-05-31] MEDS: FAMOTIDINE 20 MG TAB PO SCH ×2 (08:59→20:28)
[2017-05-31] MEDS: THIOTHIXENE 10 MG CAP PO SCH ×2 (08:59→20:28)
[2017-05-31] MEDS: METOPROLOL TARTRATE 25 MG TAB PO SCH ×2 (09:00→20:29)
--- NOTE | 2017-05-31 11:03 | HHI.PYPN ---
Subjective Chief Complaint: Mala Remarks Patient seen and examined with nurse. Chart reviewed. Case discussed with nursing staff. No behavioral issues noted overnight. On my examination today, patient is in good spirits. She is pleased that she was able to go to occupational therapy "in the fresh air." Fairly appropriate overall in conversation. She does repeat some material she has shared previously, particularly regarding her daughter. Denies side effects from medications and agrees current meds are working well. Headache resolved and no current physical complaints. Review of Systems ROS Limitations: Poor Historian Mental Status Examination Appearance: Appropriate Consciousness: Alert Orientation: Person, Place (at least) Motor Activity: Other (No motor abnormalities noted.) Speech: Unremarkable Language: Adequate Fund of Knowledge: Adequate Attention and Concentration: Adequate Memory: Unremarkable Mood: Good Affect: Appropriate Thought Process & Associations: Linear Thought Content: Appropriate Hallucination Type: None Delusion Type: None Suicidal Ideation: No Suicidal Plan: No Suicidal Intention: No Homicidal Ideation: No Homicidal Plan: No Homicidal Intention: No Insight: Poor Judgment: Poor Results Labs Date/Time Source Procedure Growth Status 05/21/17 00:00 Urine Random Urine Urine Culture - Final Escherichia Coli Complete Labs reviewed. No new labs. Vitals/IOs Vital Signs Date Time Temp Pulse Resp B/P (MAP) Pulse Ox O2 Delivery O2 Flow Rate FiO2 05/31/17 06:48 98.6 62 16 118/55 (76) 98 Intake and Output 05/31/17 05/31/17 06/01/17 08:00 16:00 00:00 Intake Total 600 ml Balance 600 ml Assessment & Plan Problem List: (1) Bipolar disorder ICD Codes: F31.9 - Bipolar disorder, unspecified Status: Acute Permanent Comment: Rule out schizoaffective disorder, bipolar type Last Edited By: Osiel Davis on May 29, 2017 12:48 (2) Non compliance w medication regimen ICD Codes: Z91.14 - Patient's other noncompliance with medication regimen Assessment & Plan Continue Depakote and Navane as ordered; patient seems to be doing well with these medications. Awaiting hospitalist input although headache has resolved. Continue to monitor on the inpatient unit. Continue other medications and care as ordered. Justification for Cont. Inpt. High risk for decompensation in less restrictive environment. Discharge Planning Placement versus state psychiatric hospitalization. Request HC Surrog/Guard Advoc?: Yes Problem Qualifiers (1) Bipolar disorder: Qualified Codes: F31.73 - Bipolar disorder, in partial remission, most recent episode manic Oisel Davis MD May 31, 2017 11:03
[2017-05-31 18:05] VITALS: BP 116/69; PULSE 63; RESP 18; TEMP 97.2; O2SAT 92
[2017-06-01 05:41] VITALS: BP 128/62; PULSE 61; RESP 15; TEMP 98.2; O2SAT 97
[2017-06-01] MEDS: METOPROLOL TARTRATE 25 MG TAB PO SCH ×2 (07:57→20:57)
[2017-06-01] MEDS: FAMOTIDINE 20 MG TAB PO SCH ×2 (07:57→20:57)
[2017-06-01] MEDS: THIOTHIXENE 10 MG CAP PO SCH ×2 (07:57→20:57)
[2017-06-01] MEDS: INSULIN ASPART SUPPLEMENTAL SCALE SQ SCH ×4 (07:58→20:59)
[2017-06-01] MEDS: RIVAROXABAN 20 MG TAB PO SCH (07:58)
[2017-06-01] MEDS: DIVALPROEX SODIUM E.R. 250 MG TAB PO SCH (07:58)
--- NOTE | 2017-06-01 10:40 | HHI.PYPN ---
Subjective Chief Complaint: Mala Remarks Patient seen for follow-up, chart reviewed. Patient was found earlier having breakfast with another patient in her room but noted to be calm and cooperative. Patient reports feeling "okay" having no difficulty with sleep but continues report having urinary incontinence overnight which has not been something new that have been occurring prior to her hospitalization. Patient aware the recommendation is for her to follow up with urologist but began reporting that she has other things to worry about this referring to the scarcity of pediatric neurosurgeons as well as other specialties which patient began to expand on. He patient reports her mood being "very good", patient denies any perceptual disturbances or delusions at this time or any side effects from current medication regimen. The patient noted to be disorganized at times with loosening associations. Patient presents underwriter solicitation director with a letter of her financial plan which she wrote several days ago. Mental Status Examination Appearance: Appropriate Consciousness: Alert Orientation: Person, Place (at least) Motor Activity: Other (No motor abnormalities noted.) Speech: Unremarkable Language: Adequate Fund of Knowledge: Adequate Attention and Concentration: Adequate Memory: Unremarkable Mood: Good Affect: Appropriate Thought Process & Associations: Loose associations, Disorganized (at times), Linear, Tangential (at times) Thought Content: Appropriate, Preoccupations (over the lack of specialists specifically pediatric neurosurgeons) Hallucination Type: None Delusion Type: None Suicidal Ideation: No Suicidal Plan: No Suicidal Intention: No Homicidal Ideation: No Homicidal Plan: No Homicidal Intention: No Insight: Poor Judgment: Poor Results Labs Labs reviewed. Date/Time Source Procedure Growth Status 05/21/17 00:00 Urine Random Urine Urine Culture - Final Escherichia Coli Complete Vitals/IOs Vital Signs Date Time Temp Pulse Resp B/P (MAP) Pulse Ox O2 Delivery O2 Flow Rate FiO2 06/01/17 05:41 98.2 61 15 128/62 (84) 97 Intake and Output 06/01/17 06/01/17 06/02/17 08:00 16:00 00:00 Intake Total 360 ml Balance 360 ml Assessment & Plan Problem List: (1) Bipolar disorder ICD Codes: F31.9 - Bipolar disorder, unspecified Status: Acute Permanent Comment: Rule out schizoaffective disorder, bipolar type Last Edited By: Osiel Davis on May 29, 2017 12:48 (2) Non compliance w medication regimen ICD Codes: Z91.14 - Patient's other noncompliance with medication regimen Assessment & Plan Patient at this time mental to have some disorganization during interview with Rebekah associations and perseveration on the availability of pediatric neurosurgeons here in [facility]. Patient denies any perceptual disturbances or SI or HI. Patient not noted to be irritable but was calm and cooperative during interview. Continue current treatment. Discharge planning in progress Justification for Cont. Inpt. At risk for further decompensation if at lower level of care Request HC Surrog/Guard Advoc?: Yes Problem Qualifiers (1) Bipolar disorder: Qualified Codes: F31.73 - Bipolar disorder, in partial remission, most recent episode manic Adonis Faulkner MD Jun 01, 2017 10:40
[2017-06-01 18:03] VITALS: BP 163/68; PULSE 66; RESP 18; TEMP 97.4; O2SAT 100
[2017-06-02 06:28] VITALS: BP 121/62; PULSE 59; RESP 18; TEMP 98.3; O2SAT 99
[2017-06-02] MEDS: INSULIN ASPART SUPPLEMENTAL SCALE SQ SCH ×4 (07:21→21:00)
[2017-06-02] MEDS: METOPROLOL TARTRATE 25 MG TAB PO SCH ×2 (08:10→21:00)
[2017-06-02] MEDS: THIOTHIXENE 10 MG CAP PO SCH ×2 (08:10→21:00)
[2017-06-02] MEDS: DIVALPROEX SODIUM E.R. 250 MG TAB PO SCH (08:10)
[2017-06-02] MEDS: RIVAROXABAN 20 MG TAB PO SCH (08:10)
[2017-06-02] MEDS: FAMOTIDINE 20 MG TAB PO SCH ×2 (08:10→21:00)
--- NOTE | 2017-06-02 12:08 | HHI.PYPN ---
Subjective Chief Complaint: Mala Remarks Patient seen and examined with nurse. Chart reviewed. Case discussed with nursing staff. No behavioral issues noted overnight. Case discussed with counselor. Possible bed at [facility] after the weekend. On my examination today, the patient is in good spirits. She says that she has learned that her son has safely returned from his tour to his female partner, and the patient is hopeful that she will be a grandmother 9 months hence. No mood or psychotic symptoms at this time. Denies side effects from medications. No physical complaints. Review of Systems Except as stated in HPI: all other systems reviewed are Neg Mental Status Examination Appearance: Appropriate Consciousness: Alert Orientation: Person, Place Motor Activity: Other (no abnormal motor movements noted) Speech: Unremarkable Language: Adequate Fund of Knowledge: Adequate Attention and Concentration: Adequate Memory: Unremarkable Mood: Good Affect: Appropriate, Euthymic Thought Process & Associations: Linear Thought Content: Appropriate Hallucination Type: None Delusion Type: None Suicidal Ideation: No Suicidal Plan: No Suicidal Intention: No Homicidal Ideation: No Homicidal Plan: No Homicidal Intention: No Insight: Poor Judgment: Poor Results Labs Date/Time Source Procedure Growth Status 05/21/17 00:00 Urine Random Urine Urine Culture - Final Escherichia Coli Complete Labs reviewed. No new labs. Vitals/IOs Vital Signs Date Time Temp Pulse Resp B/P (MAP) Pulse Ox O2 Delivery O2 Flow Rate FiO2 06/02/17 06:28 98.3 59 18 121/62 (81) 99 Intake and Output 06/02/17 06/02/17 06/03/17 08:00 16:00 00:00 Intake Total 240 ml 600 ml Balance 240 ml 600 ml Assessment & Plan Problem List: (1) Bipolar disorder ICD Codes: F31.9 - Bipolar disorder, unspecified Status: Acute Permanent Comment: Rule out schizoaffective disorder, bipolar type Last Edited By: Osiel Davis on May 29, 2017 12:48 (2) Non compliance w medication regimen ICD Codes: Z91.14 - Patient's other noncompliance with medication regimen Assessment & Plan Continue Depakote and Navane as ordered. Continue to monitor on the inpatient unit. Continue other medications and care as ordered. Justification for Cont. Inpt. High risk for decompensation in a less restrictive environment Discharge Planning Possible discharge to [facility] Monday Request HC Surrog/Guard Advoc?: Yes Problem Qualifiers (1) Bipolar disorder: Qualified Codes: F31.73 - Bipolar disorder, in partial remission, most recent episode manic Osiel Davis MD Jun 02, 2017 12:07
--- NOTE | 2017-06-02 15:02 | PD.TTN ---
Patient Problems 1. Discharge planning 2. Medication compliance 3. Knowledge deficit 4. Lack of coping skills Progress Toward Goals Provider Present: Dr. Jose Miguel Ca Provider Input: 06/02/2017 patient has had no medication adjustment, continues to do respond well with current dosage 05/26/2017 patient is being staff for a locked or sensor sensitive doors facility by counselor and family 05/23/2017 @ 9am: Per doctor at this point in treatment sending patient to the [facility] is the less restricted option, patient continues to be monitor for behavior improvement. Pt requires further stabilization and medication regiment will be evaluated/adjusted. Pt will be referred for placement at a facility or [facility] as appropriate. Nurse(s) Present: TIAGO Ponce Nurse(s) Input: 06/02/2017; patient is compliant with medication and meals, no behavior issues, involved with her care 05/26/2017 patient is sleeping eating and taking her medication 05/23/2017; per RN patient is sleeping well, she has no major or minor compliant outside of wanting to be discharged home; patient continues with inappropriate thougths unrelated with treatment. Pt slept well, has been compliant and has no behavioral issues on unit. She appears religiously preoccupied. Psychiatric Counselors Present: JOVAN Red Psych Therapist Input: Counselor will continue faxing NH packages until appropriate placement is established 05/26/2017 Counselor has began the process for faxing [facility] facility assisting family with appropriate placement 05/23/2017 @ 9am patient continues to be redirected with meaningful feedback reality based thoughts. Counselor will discuss safety concerns with patient surrounding [facility] admission and her lack of insight. Pt appears disorganized, bizarre, labile, cooperative and appropriate. She continues to present with poor insight into condition and need for care. She has been compliant with medication on unit but has a history of chronic noncompliance at home leading to numerous admissions. Pt presents with limited coping and emotional regulation skills as she has been observed to be yelling out random words on the unit. No noted aggression. She denied any mood symptoms at this time as well as perceptive disturbances though she appears preoccupied. Group Spec/RT/OT/CHENG Present: Fam Metz OT, SKYLAR Musa Group Spec/RT/OT/CHENG Input: 06/02/2017 patient is participating with some need for redirection with appropriate thoughts, patient is encouraged to use her walker 05/23/2017@ 9am patient has been participating with groups and activities Pt has not attended groups. Discharge Plan Pt will be referred to a facility or will be referred to [facility] depending on progress of condition. Documentation Scribe: JOVAN Red Teaching Recipient: Patient González,Bettina ALDANA Jun 02, 2017 15:02
[2017-06-02] MEDS ORDERED: ACETAMINOPHEN 325 MG TAB PO PRN (17:30)
[2017-06-02] MEDS ORDERED: ONDANSETRON HCL 4 MG/2 ML VIAL IVP PRN (17:30)
[2017-06-02] MEDS ORDERED: SODIUM CHLORIDE 0.9% FLUSH 10 ML FLUSH IV FLUSH PRN (17:30)
[2017-06-02] MEDS ORDERED: NALOXONE HCL 0.4 MG/ML AMP IV PUSH PRN (17:30)
[2017-06-02 18:33] VITALS: BP 136/65; PULSE 62; RESP 18; TEMP 98; O2SAT 100
[2017-06-02] MEDS ORDERED: SODIUM CHLORIDE 0.9% FLUSH 10 ML FLUSH IV FLUSH SCH (21:00)
[2017-06-03 07:40] LABS: AUTOMATED NEUTROPHIL # 2.5 TH/MM3 (1.8-7.7); BASOPHIL % 1.1 % (0.0-2.0); EOSINOPHIL # 0.1 TH/MM3 (0-0.4); EOSINOPHIL % 1.7 % (0.0-4.0); HEMO FLAGS DIFF FINAL; LYMPH % 27.6 % (9.0-44.0); LYMPHOCYTE # 1.3 TH/MM3 (1.0-4.8); MEAN CELL VOLUME 85.6 FL (80.0-100.0); MEAN CORPUSCULAR HEMOGLOBIN 28.2 PG (27.0-34.0); MEAN CORPUSCULAR HGB CONC 32.9 % (32.0-36.0); MONO % 16.7 % (0.0-8.0); NEUT % 52.9 % (16.0-70.0); PLATELET COUNT 153 TH/MM3 (150-450); RED BLOOD COUNT 4.08 MIL/MM3 (4.00-5.30); RED CELL DISTRIBUTION WIDTH 16.3 % (11.6-17.2); WHITE BLOOD COUNT 4.7 TH/MM3 (4.0-11.0)
[2017-06-03 07:45] VITALS: BP 108/62; PULSE 61; RESP 17; TEMP 97.4; O2SAT 97
[2017-06-03 07:59] LABS: BICARBONATE 26.4 MEQ/L (21.0-32.0); POTASSIUM 3.9 MEQ/L (3.5-5.1)
[2017-06-03] MEDS: INSULIN ASPART SUPPLEMENTAL SCALE SQ SCH ×4 (08:00→20:14)
[2017-06-03] MEDS: THIOTHIXENE 10 MG CAP PO SCH ×2 (08:34→20:53)
[2017-06-03] MEDS: DIVALPROEX SODIUM E.R. 250 MG TAB PO SCH (08:34)
[2017-06-03] MEDS: METOPROLOL TARTRATE 25 MG TAB PO SCH ×2 (08:35→20:56)
[2017-06-03] MEDS: RIVAROXABAN 20 MG TAB PO SCH (08:35)
[2017-06-03] MEDS: FAMOTIDINE 20 MG TAB PO SCH ×2 (08:40→20:52)
--- NOTE | 2017-06-03 16:47 | HHI.PYPN ---
Subjective Chief Complaint: Mala Remarks Patient was seen and case discussed with nursing. Bright and pleasant, appears less elevated compared to our last meeting. She is social and interacting with other patients, compliant with medication. Denies ah/vh/si/hi. Tolerating medications well. Mental Status Examination Appearance: Appropriate, Disheveled Consciousness: Alert Orientation: Person, Place Motor Activity: Other (no abnormal motor movements noted) Speech: Unremarkable Language: Adequate Fund of Knowledge: Adequate Attention and Concentration: Adequate Memory: Unremarkable Mood: Good Affect: Appropriate, Euthymic Thought Process & Associations: Intact, Linear Thought Content: Appropriate Hallucination Type: None Delusion Type: None Suicidal Ideation: No Suicidal Plan: No Suicidal Intention: No Homicidal Ideation: No Homicidal Plan: No Homicidal Intention: No Insight: Poor Judgment: Poor Results Labs Test 06/03/17 07:16 White Blood Count 4.7 TH/MM3 Red Blood Count 4.08 MIL/MM3 Hemoglobin 11.5 GM/DL Hematocrit 35.0 % Mean Corpuscular Volume 85.6 FL Mean Corpuscular Hemoglobin 28.2 PG Mean Corpuscular Hemoglobin Concent 32.9 % Red Cell Distribution Width 16.3 % Platelet Count 153 TH/MM3 Mean Platelet Volume 9.7 FL Neutrophils (%) (Auto) 52.9 % Lymphocytes (%) (Auto) 27.6 % Monocytes (%) (Auto) 16.7 % Eosinophils (%) (Auto) 1.7 % Basophils (%) (Auto) 1.1 % Neutrophils # (Auto) 2.5 TH/MM3 Lymphocytes # (Auto) 1.3 TH/MM3 Monocytes # (Auto) 0.8 TH/MM3 Eosinophils # (Auto) 0.1 TH/MM3 Basophils # (Auto) 0.0 TH/MM3 CBC Comment DIFF FINAL Differential Comment Blood Urea Nitrogen 19 MG/DL Creatinine 0.85 MG/DL Random Glucose 88 MG/DL Calcium Level 8.6 MG/DL Sodium Level 140 MEQ/L Potassium Level 3.9 MEQ/L Chloride Level 107 MEQ/L Carbon Dioxide Level 26.4 MEQ/L Anion Gap 7 MEQ/L Estimat Glomerular Filtration Rate 67 ML/MIN Date/Time Source Procedure Growth Status 05/21/17 00:00 Urine Random Urine Urine Culture - Final Escherichia Coli Complete Vitals/IOs Vital Signs Date Time Temp Pulse Resp B/P (MAP) Pulse Ox O2 Delivery O2 Flow Rate FiO2 06/03/17 07:45 97.4 61 17 108/62 (77) 97 Intake and Output 06/03/17 06/03/17 06/04/17 08:00 16:00 00:00 Intake Total 240 ml 480 ml Balance 240 ml 480 ml Assessment & Plan Problem List: (1) Bipolar disorder ICD Codes: F31.9 - Bipolar disorder, unspecified Status: Acute Permanent Comment: Rule out schizoaffective disorder, bipolar type Last Edited By: Osiel Davis on May 29, 2017 12:48 (2) Non compliance w medication regimen ICD Codes: Z91.14 - Patient's other noncompliance with medication regimen Assessment & Plan Continue current treatment plan Justification for Cont. Inpt. Pt would decompensate in a less restrictive setting Request HC Surrog/Guard Advoc?: Yes Problem Qualifiers (1) Bipolar disorder: Qualified Codes: F31.73 - Bipolar disorder, in partial remission, most recent episode manic Cody Chaidez DO Jun 03, 2017 16:47
[2017-06-04 05:52] VITALS: BP 164/79; PULSE 59; RESP 17; TEMP 97.5; O2SAT 98
[2017-06-04] MEDS: INSULIN ASPART SUPPLEMENTAL SCALE SQ SCH ×4 (08:36→19:58)
[2017-06-04] MEDS: METOPROLOL TARTRATE 25 MG TAB PO SCH ×2 (08:56→19:58)
[2017-06-04] MEDS: THIOTHIXENE 10 MG CAP PO SCH ×3 (08:56→22:44)
[2017-06-04] MEDS: DIVALPROEX SODIUM E.R. 250 MG TAB PO SCH (08:57)
[2017-06-04] MEDS: RIVAROXABAN 20 MG TAB PO SCH (08:57)
[2017-06-04] MEDS: FAMOTIDINE 20 MG TAB PO SCH ×2 (08:57→19:58)
--- NOTE | 2017-06-04 14:34 | HHI.PYPN ---
Subjective Chief Complaint: Mala Remarks Patient was seen and case discussed with nursing. Patient remains pleasantly psychotic. Somewhat elated. Social with others. Tolerating her medications well. Denies positive psychotic symptoms Mental Status Examination Appearance: Appropriate, Disheveled Consciousness: Alert Orientation: Person, Place Motor Activity: Other (no abnormal motor movements noted) Speech: Unremarkable Language: Adequate Fund of Knowledge: Adequate Attention and Concentration: Adequate Memory: Unremarkable Mood: Good Affect: Appropriate, Euthymic Thought Process & Associations: Disorganized Thought Content: Appropriate, Preoccupations Hallucination Type: None Delusion Type: None Suicidal Ideation: No Suicidal Plan: No Suicidal Intention: No Homicidal Ideation: No Homicidal Plan: No Homicidal Intention: No Insight: Poor Judgment: Poor Results Labs Date/Time Source Procedure Growth Status 05/21/17 00:00 Urine Random Urine Urine Culture - Final Escherichia Coli Complete Vitals/IOs Vital Signs Date Time Temp Pulse Resp B/P (MAP) Pulse Ox O2 Delivery O2 Flow Rate FiO2 06/04/17 05:52 97.5 59 17 164/79 (107) 98 Assessment & Plan Problem List: (1) Bipolar disorder ICD Codes: F31.9 - Bipolar disorder, unspecified Status: Acute Permanent Comment: Rule out schizoaffective disorder, bipolar type Last Edited By: Osiel Davis on May 29, 2017 12:48 (2) Non compliance w medication regimen ICD Codes: Z91.14 - Patient's other noncompliance with medication regimen Assessment & Plan Continue current treatment plan Justification for Cont. Inpt. Patient would decompensate in a less restrictive setting Request HC Surrog/Guard Advoc?: Yes Problem Qualifiers (1) Bipolar disorder: Qualified Codes: F31.73 - Bipolar disorder, in partial remission, most recent episode manic Cody Chaidez DO Jun 04, 2017 14:34
[2017-06-04 18:13] VITALS: BP 126/59; PULSE 62; RESP 18; TEMP 98.6; O2SAT 98
[2017-06-05 05:33] VITALS: BP 105/63; PULSE 65; RESP 17; TEMP 96.8; O2SAT 100
[2017-06-05] MEDS: INSULIN ASPART SUPPLEMENTAL SCALE SQ SCH ×4 (07:50→21:00)
--- NOTE | 2017-06-05 07:51 | HHI.PR ---
Subjective Remarks OOB using walker in common room. Alert and cooperative reports that they are planning on discharging me soon. Objective Vital Signs Date Time Temp Pulse Resp B/P (MAP) Pulse Ox O2 Delivery O2 Flow Rate FiO2 06/05/17 05:33 96.8 65 17 105/63 (77) 100 06/04/17 18:13 98.6 62 18 126/59 (81) 98 I/O 06/04/17 06/04/17 06/04/17 06/05/17 06/05/17 06/05/17 07:00 15:00 23:00 07:00 15:00 23:00 Intake Total 360 ml Balance 360 ml Intake Oral 360 ml # Voids 2 Result Diagram: 06/03/17 0716 06/03/17 0716 Objective Remarks GENERAL: Alert and cooperative SKIN: Warm and dry. Bilateral mild lower extremity edema HEAD: Normocephalic. EYES: No scleral icterus. No injection or drainage. NECK: Supple, trachea midline. No JVD or lymphadenopathy. CARDIOVASCULAR: Regular rate and rhythm without murmurs, gallops, or rubs. RESPIRATORY: Breath sounds equal bilaterally. No accessory muscle use. GASTROINTESTINAL: Abdomen soft, non-tender, nondistended. MUSCULOSKELETAL: No cyanosis, or edema. BACK: Nontender without obvious deformity. No CVA tenderness. Medications and IVs Current Medications Medications (Trade) Dose Ordered Sig/Valentina Route Start Time Stop Time Status Last Admin (Ativan) 0.5 mg Q12H PRN PO 05/17/17 03:00 05/31/17 20:28 (Ativan Inj) 0.5 mg Q12H PRN IM 05/17/17 03:00 (Tylenol) 650 mg Q4H PRN PO 05/17/17 03:00 (Milk Of Magnesia Liq) 30 ml DAILY PRN PO 05/17/17 03:00 (Mag-Al Plus Susp Liq) 30 ml Q6H PRN PO 05/17/17 03:00 (Depakote Er) 1,250 mg DAILY PO 05/17/17 10:15 06/04/17 08:57 (Pepcid) 10 mg BID PO 05/17/17 10:15 06/04/17 19:58 (Lopressor) 12.5 mg Q12HR PO 11/8/17 10:15 06/04/17 19:58 (Xarelto) 20 mg DAILY PO 05/17/17 10:15 06/04/17 08:57 (D50w (Vial) Inj) 50 ml UNSCH PRN IV PUSH 05/17/17 10:30 (Glucagon Inj) 1 mg UNSCH PRN OTHER 05/17/17 10:30 (NovoLOG SUPPLEMENTAL SCALE) 1 ACHS SLIDING SCALE SQ 05/17/17 12:00 06/01/17 11:22 (ZyPREXA INJ) 10 mg Q12H PRN IM 05/18/17 14:30 (Navane) 10 mg BID PO 05/29/17 21:00 06/04/17 22:44 Assessment and Plan Problem List: (1) Bipolar affective disorder, current episode manic with psychotic symptoms ICD Codes: F31.2 - Bipolar affective disorder, current episode manic with psychotic symptoms Status: Chronic (2) HX LEFT LEG DVT Status: Resolved (3) Non compliance w medication regimen ICD Codes: Z91.14 - Patient's other noncompliance with medication regimen (4) Hypertension ICD Codes: I10 - Hypertension Status: Acute (5) Non-insulin dependent type 2 diabetes mellitus ICD Codes: E11.9 - Non-insulin dependent type 2 diabetes mellitus Status: Chronic Assessment and Plan 05/18/17 Bipolar affective disorder: Psych is managing. Patient is mena. Reports non compliance with medication HTN: Continue metoprolol and amlodipine. B/P 116/61 HX of DVT: continue xarelto Diabetes; Well controlled all blood sugars less than 200mg/dl. Not on medication 05/22/17 Bipolar affective disorder: Alert and cooperative this morning. Psych is managing. HTN: Blood pressure running on lower side will discontinue amlodipine. Fluids encouraged. Has mild lower extremity edema could be related to Norvasc Diabetes: BS well controlled Labs ordered and UA is pending 05/24/17 Bipolar disorder: psych managing. Patient is lucid and reports that she wants to go home HTN: Well controlled diabetes; BS well controlled UTI: Macrobid with stop date of the 06/05/17 Bipolar disorder: Psychiatry managing. Patient is in good spirits. Reports that they are planning of discharging me soon. HTN: Well controlled Diabetes; On con carb diet. BS 89-133 I and the HISTORIOGRAPHY TEACHER have both examined this a patient and reviewed this note and I agree with these findings and plan of care. Odette Turner. [facility] Jun 05, 2017 07:51
[2017-06-05] MEDS: METOPROLOL TARTRATE 25 MG TAB PO SCH ×2 (09:39→20:21)
[2017-06-05] MEDS: FAMOTIDINE 20 MG TAB PO SCH ×2 (09:39→20:59)
[2017-06-05] MEDS: RIVAROXABAN 20 MG TAB PO SCH (09:40)
[2017-06-05] MEDS: THIOTHIXENE 10 MG CAP PO SCH ×2 (09:40→20:59)
[2017-06-05] MEDS: DIVALPROEX SODIUM E.R. 250 MG TAB PO SCH (09:40)
[2017-06-05] MEDS ORDERED: DIVA250ER PO (09:44)
[2017-06-05] MEDS ORDERED: FAMO20TA2 PO (09:44)
[2017-06-05] MEDS ORDERED: NOVOLOGP2 SQ (09:44)
[2017-06-05] MEDS ORDERED: METO25TA3 PO (09:44)
[2017-06-05] MEDS ORDERED: THIO10CA PO (09:44)
[2017-06-05] MEDS ORDERED: XARE20TA PO (09:44)
[2017-06-05] MEDS ORDERED: INSU31MI31 SQ (09:44)
--- NOTE | 2017-06-05 09:44 | HHI.DS ---
Psychiatry Discharge Summary Inpatient Psychiatric care?: Yes Advance Directive: No Reason Not Provided: Due to Patient Condition Mental Health AdvanceDirective: No Health Care Proxy: No Admission Admission Date May 17, 2017 at 01:38 Admission Diagnosis: (1) Bipolar affective disorder, current episode manic with psychotic symptoms ICD Code: F31.2 - Bipolar affective disorder, current episode manic with psychotic symptoms Brief History Ms. Hurley is a 66-year-old female with a history of bipolar illness well-known to the psychiatric service here from multiple prior ED visits and psychiatric admissions. She was brought back to the emergency department yesterday in the evening under a [place] act by law enforcement alleging that the patient was standing in the road and was belligerent. Patient was agitated in the ED last night and received Ativan 2 mg IM once. Reviewing the electronic medical record, I note that the patient was admitted most recently under my care in March of this year. Patient seen and examined. Chart reviewed. Case discussed with nursing staff. Patient was no further behavioral problem after arriving on the floor. I find the patient in the day area dozing in a raymond-chair. She is quite disheveled. She is easily awakened. Speech is pressured and rambling. Loosening of associations is present. She says, "I alban want the best for everybody. I don't want to be any human being besides who's standing. Send me home. I want the top head richard down here in a charles-minosecond." Affect is labile. She is fixated on the fact that, by her report, [facility] does not have a pediatric neurosurgeon on staff. She denies SI/HI but seems distinctly unreliable to contract for safety. She denies AVH. Grandiosity present. She demands discharge and threatens to rigoberto Dr. Ca for some reason if she is not discharged. She admits to non-adherence with medications. No physical complaints. Psychiatric interview is limited as the patient is a poor historian as a consequence of her psychiatric symptoms. I am unable to obtain any meaningful past psychiatric, family, chemical dependency or social history from this patient at this time for this reason. Patient was placed into the involuntary outpatient commitment program during her last hospitalization, and I put out a call to the medical case worker Shen Fernandez with the program to determine what transpired after she was discharged from the hospital last time. Shen tells me that patient became immediately medication non-adherent following discharge from the hospital. She refused to see outpatient mental health provider and refused attempts by Shen to visit the home to assess her status. Tobacco Use In Past 30 Days: Cigarettes But Not Daily Alcohol Use: Never Hospital Course Patient was admitted to the locked inpatient psychiatric unit. General medical consultation obtained. Appropriate precautions in place throughout patient's hospital stay. Patient seen and examined on the unit by psychiatry and visited by counselor. Psychotropic medications were adjusted. Patient's mood stabilized nicely with a combination of Depakote 1250 mg daily and Navane 10 mg twice daily. Patient's behavior improved with the benefit of treatment and she was successfully transitioned to the lower acuity unit from the higher acuity unit. There was no evidence of any suicidality or homicidality on the inpatient unit. Counselor has arranged for placement in snf facility, and it is my hope that placement in a structured living environment will reduce her risk of medication non-adherence and subsequent psychiatric decompensation. On the day of discharge: Patient seen and examined with nurse. Chart reviewed. Case discussed with nursing staff. Case discussed with counselor. No behavioral issues overnight. On my examination today, the patient remains agreeable to going to a snf facility. She is in good spirits. She denies any suicidal or homicidal ideation, intent or plan on direct questioning and contracts for safety. Mood is stable and I can elicit no depressive or hypomanic/manic symptoms. No psychotic symptoms present. She denies side effects from medications. No physical complaints. Suicide and violence risk assessment on discharge both suggests lower imminent risk and the patient's level of function is adequate for planned level of outpatient care. Patient has maximized benefit from this inpatient psychiatric hospital stay and will be discharged to snf facility today with psychiatric follow-up as arranged by counselor. Patient is also to follow-up with primary care. Patient to return to psychiatric emergency room for any concerning psychiatric symptoms. Results Blood Pressure 105 / 63 Vital Signs Date Time Temp Pulse Resp B/P (MAP) Pulse Ox O2 Delivery O2 Flow Rate FiO2 06/05/17 05:33 96.8 65 17 105/63 (77) 100 Laboratory Tests Test 06/03/17 07:16 Hemoglobin 11.5 GM/DL (11.6-15.3) Monocytes (%) (Auto) 16.7 % (0.0-8.0) Blood Urea Nitrogen 19 MG/DL (7-18) Estimat Glomerular Filtration Rate 67 ML/MIN (>89) Laboratory Results Test 05/17/17 00:32 05/22/17 08:50 Cholesterol Level 163 MG/DL (120-200) HDL Cholesterol 45.7 MG/DL (40.0-60.0) LDL Cholesterol 93 MG/DL (0-99) Triglycerides Level 123 MG/DL (42-150) Valproic Acid (Depakene) Level 99 MCG/ML (50-100) Summary of Procedures None done Imaging None done Pending results at discharge: No Medications # of Antipsychotic meds at D/C: 1 Approp Antipsych med options 1 - Minimum of three failed multiple trials of monotherapy. 2 - Documented plan to taper to monotherapy due to previous use of multiple meds OR cross-taper in progress at D/C. 3 - Documentation of augmentation of Clozapine. 4 - Justification other than those listed in allowable values 1-3, document here : Discharge Discharge Date: Jun 05, 2017 Discharge Diagnosis: (1) Bipolar disorder in remission Diagnosis: Principal ICD Code: F31.70 - Bipolar disorder, currently in remission, most recent episode unspecified Pt Condition on Discharge: Stable Discharge Disposition: Discharge to SNF Discharge Instructions Diet Instructions: Diabetic Diet Activities you can perform: Weight Bearing as Justin Scheduled Appointment: as per counselor's notes New Medications: Easy Comfort Pen [place] 31G X 5 mm (Easy Comfort Pen [place] 31G X 5 mm) 31 Gauge X 3/16" Mis BOX SQ DIRECTED for Blood Sugar Management, #1 Insulin Aspart Inj (Novolog Inj) 1,000 Unit/10 Ml Vial 1-9 UNITS SQ ACHS for Blood Sugar Management, #10 ML 0 Refills Max dose at bedtime:( )units; sugars less than 70,(0)units; sugars 150-199,(1) unit; sugars 200-249,(3) units; sugars 250-299,(5) units; sugars 300-349,(7) units; sugars greater than 349,(9) units Thiothixene (Thiothixene) 10 Mg Cap 10 MG PO BID for Mental Health for 15 Days, #30 CAP 1 Refill Continued Medications: Divalproex ER (Depakote ER) 250 Mg Diana 1250 MG PO DAILY for Mental Health for 15 Days, #75 TAB 1 Refill (This prescription has been renewed) Famotidine (Famotidine) 20 Mg Tab 10 MG PO BID for Health for 15 Days, #15 TAB 1 Refill (This prescription has been renewed) Metoprolol Tartrate (Metoprolol Tartrate) 25 Mg Tab 12.5 MG PO Q12HR for Blood Pressure Management for 15 Days, TAB 1 Refill (This prescription has been renewed) Rivaroxaban (Xarelto) 20 Mg Tab 20 MG PO DAILY for Health for 15 Days, #15 TAB 1 Refill (This prescription has been renewed) Discontinued Medications: Amlodipine (Norvasc) 5 Mg Tab 5 MG PO DAILY for health, #30 TAB 0 Refills Risperidone (Risperdal) 3 Mg Tab 3 MG PO Q12HR for Mental Health for 15 Days, TAB 1 Refill Talk with your outpatient provider about how to taper and discontinue oral Risperdal. Be sure to get your next dose of Risperdal Consta. Risperidone Inj (Risperdal Consta Inj) 25 Mg/2 Ml Inj 25 MG IM Q14D for Mental Health, #2 VIAL 0 Refills This dose of Consta is due on 04/13/2017. Thiothixene (Thiothixene) 5 Mg Cap 5 MG PO Q12HR for Mental Health for 15 Days, CAP 1 Refill Discharge Time <= 30 minutes Mental Status Examination Appearance: Appropriate Consciousness: Alert Orientation: Person, Place (at least) Motor Activity: Other (no abnormal motor movements appreciated) Speech: Unremarkable Language: Adequate Fund of Knowledge: Adequate Attention and Concentration: Adequate Memory: Unremarkable Mood: Good Affect: Appropriate, Euthymic Thought Process & Associations: Intact Thought Content: Appropriate Hallucination Type: None Delusion Type: None Suicidal Ideation: No Suicidal Plan: No Suicidal Intention: No Homicidal Ideation: No Homicidal Plan: No Homicidal Intention: No Insight: Poor (chronic condition) Judgment: Poor (chronic condition) Discharge/Advance Care Plan Health Problems: (1) Bipolar disorder (2) Non compliance w medication regimen Goals to promote your health * To prevent worsening of your condition and complications * To maintain your health at the optimal level Directions to meet your goals Take your medications as prescribed Follow your dietary instruction Follow activity as directed Keep your appointments as scheduled Take your immunizations and boosters as scheduled If your symptoms worsen call your PCP, if no PCP go to Urgent Care Center or Emergency Room For 30/01 questions related to your inpatient stay or results of tests pending at discharge, please contact Dr. Osiel Davis at Smoking is Dangerous to Your Health. Avoid second hand smoking Osiel Davis MD Jun 05, 2017 09:44
[2017-06-05 15:53] VITALS: BP 108/59; PULSE 62; RESP 18; TEMP 98.3; O2SAT 99
[2017-06-06 05:52] VITALS: BP 153/79; PULSE 58; RESP 15; TEMP 97.4; O2SAT 98
[2017-06-06] MEDS: INSULIN ASPART SUPPLEMENTAL SCALE SQ SCH ×2 (07:24→11:37)
--- NOTE | 2017-06-06 08:25 | HHI.PYPN ---
Subjective Chief Complaint: Mala Remarks Patient seen and examined with nurse. Chart reviewed. Case discussed in treatment team. Discharge held yesterday because PASRR II was not completed. Counselor informs me that this has now been done. On my examination today, the patient is in good spirits. She is looking forward to discharge today and remains agreeable to going to [facility]. She denies any SI, HI or AVH. No mood or psychotic symptoms noted. Denies side effects from medications. No physical complaints. Review of Systems Except as stated in HPI: all other systems reviewed are Neg Mental Status Examination Appearance: Appropriate Consciousness: Alert Orientation: x4 Motor Activity: Other (no motor abnormalities appreciated) Speech: Unremarkable Language: Adequate Fund of Knowledge: Adequate Attention and Concentration: Adequate Memory: Unremarkable Mood: Good Affect: Appropriate, Euthymic Thought Process & Associations: Intact Thought Content: Appropriate Hallucination Type: None Delusion Type: None Suicidal Ideation: No Suicidal Plan: No Suicidal Intention: No Homicidal Ideation: No Homicidal Plan: No Homicidal Intention: No Insight: Poor (chronic condition) Judgment: Poor (chronic condition) Results Labs Labs reviewed. No new labs. Vitals/IOs Vital Signs Date Time Temp Pulse Resp B/P (MAP) Pulse Ox O2 Delivery O2 Flow Rate FiO2 06/06/17 05:52 97.4 58 15 153/79 (103) 98 Assessment & Plan Problem List: (1) Bipolar disorder in remission ICD Codes: F31.70 - Bipolar disorder, currently in remission, most recent episode unspecified Assessment & Plan Patient remains psychiatrically stable. Discharge to [facility] today. Continue current medications as ordered. Justification for Cont. Inpt. Discharged today Request HC Surrog/Guard Advoc?: Yes Osiel Davis MD Jun 06, 2017 08:25
[2017-06-06 08:30] VITALS: PULSE 68
[2017-06-06] MEDS: FAMOTIDINE 20 MG TAB PO SCH (08:34)
[2017-06-06] MEDS: THIOTHIXENE 10 MG CAP PO SCH (08:34)
[2017-06-06] MEDS: METOPROLOL TARTRATE 25 MG TAB PO SCH (08:34)
[2017-06-06] MEDS: DIVALPROEX SODIUM E.R. 250 MG TAB PO SCH (08:34)
[2017-06-06] MEDS: RIVAROXABAN 20 MG TAB PO SCH (08:35)
--- NOTE | 2017-06-06 08:35 | PD.TTN ---
Patient Problems 1. Discharge planning 2. Medication compliance 3. Knowledge deficit 4. Lack of coping skills Progress Toward Goals Provider Present: Dr. Jose Miguel Ca, Dr. Paris Davis Provider Input: 06/02/2017 patient has had no medication adjustment, continues to do respond well with current dosage 05/26/2017 patient is being staff for a locked or sensor sensitive doors facility by counselor and family 05/23/2017 @ 9am: Per doctor at this point in treatment sending patient to the [facility] is the less restricted option, patient continues to be monitor for behavior improvement. Pt requires further stabilization and medication regiment will be evaluated/adjusted. Pt will be referred for placement at a facility or [facility] as appropriate. 06/06/17 Patient is ready for discharge and is just waiting for PASSR level 2 to be completed by [facility]. Will be discharged to [facility]. Nurse(s) Present: TIAGO Ponce Nurse(s) Input: 06/02/2017; patient is compliant with medication and meals, no behavior issues, involved with her care 05/26/2017 patient is sleeping eating and taking her medication 05/23/2017; per RN patient is sleeping well, she has no major or minor compliant outside of wanting to be discharged home; patient continues with inappropriate thougths unrelated with treatment. Pt slept well, has been compliant and has no behavioral issues on unit. She appears religiously preoccupied. 06/06/17 Patient is appropriate and has been compliant with medications. No changes and has no bheavioral issues. Psychiatric Counselors Present: JOVAN Red, Liss Mann, [facility] Input: Counselor will continue faxing [place] packages until appropriate placement is established 05/26/2017 [facility] facility assisting family with appropriate placement 05/23/2017 @ 9am patient continues to be redirected with meaningful feedback reality based thoughts. Counselor will discuss safety concerns with patient surrounding [facility] and her lack of insight. 06/06/17 Patient is approparite and calm and is ready for discharge. patient is behaving appropriately and will have appropriate follow up upon discharge to [facility]. Pt appears disorganized, bizarre, labile, cooperative and appropriate. She continues to present with poor insight into condition and need for care. She has been compliant with medication on unit but has a history of chronic noncompliance at home leading to numerous admissions. Pt presents with limited coping and emotional regulation skills as she has been observed to be yelling out random words on the unit. No noted aggression. She denied any mood symptoms at this time as well as perceptive disturbances though she appears preoccupied. Group Spec/RT/OT/CHENG Present: Fam Metz, OT, Raymond Arce, SKYLAR Group Spec/RT/OT/CHENG Input: 06/02/2017 patient is participating with some need for redirection with appropriate thoughts, patient is encouraged to use her walker 05/23/2017@ 9am patient has been participating with groups and activities 06/06/17 Patient attends all group and is appropriate, hyperverbal, easy to redirect. Pt has not attended groups. Discharge Plan Pt will be referred to a facility or will be referred to [facility] depending on progress of condition. Documentation Scribe: Bettina Claudio [facility] Teaching Recipient: Patient Liss Mnan [facility] Jun 06, 2017 08:35
== END 2017-06-06 12:40 | DRG 885 ==
LOC: NEPJ 23:20 → NEDA 05-17 01:38 → H270 05-17 02:28 → H4EA 05-22 22:07 → H250 06-04 12:44 → H260 06-04 19:13
PROVIDERS: ADMIT Psychiatry & Neurology Psychiatry; ATTEND Psychiatry & Neurology Psychiatry
DX: F31.2 Bipolar disorder, current episode manic severe with psychotic features (principal); N17.9 Acute kidney failure, unspecified; N39.0 Urinary tract infection, site not specified; E11.9 Type 2 diabetes mellitus without complications; E83.52 Hypercalcemia; I10 Essential (primary) hypertension; Q66.89 Other specified congenital deformities of feet; B96.20 Unspecified Escherichia coli [E. coli] as the cause of diseases classified elsewhere; R32 Unspecified urinary incontinence; Z79.01 Long term (current) use of anticoagulants; Z72.0 Tobacco use; Z79.4 Long term (current) use of insulin; Z86.718 Personal history of other venous thrombosis and embolism; Z88.0 Allergy status to penicillin; Z88.2 Allergy status to sulfonamides; Z88.6 Allergy status to analgesic agent; Z91.14 Patient's other noncompliance with medication regimen; Z96.641 Presence of right artificial hip joint
CPT/HCPCS: 80048; 80053; 80061; 80164; 80307; 81001; 82140; 82948; 84481; 85025; 85027; 87077; 87086; 87186; 96372; J1200; J1815; J2060

== ENCOUNTER 2017-09-09 10:11 | Inpatient (IN) | payer MEDICARE, OTHER ==
[~2017-09-09] VITALS: Ht 172.7 cm; Wt 80.2 kg
[~2017-09-09 10:11] MED LIST changes: -AMLO5 PO; -CIPR-9 PO; +INSU31MI31 SQ; +NOVOLOGP2 SQ; -RISP25P IM; -RISP3 PO; +THIO10CA PO; -THIO5CAP PO
[2017-09-09 10:17] VITALS: BP 134/66; PULSE 122; RESP 19; TEMP 97.6; O2SAT 99
--- NOTE | 2017-09-09 10:26 | PD ---
HPI Chief Complaint: Psychiatric Symptoms Time Seen by Provider: 10:18 Travel History International Travel<30 days: No Contact w/Intl Traveler<30days: No History of Present Illness HPI 67-year-old female with long psychiatric history presents emergency department under the Nino act from her home with suicidal ideation. Patient is somewhat catatonic and obviously psychotic. Patient had a welfare check on her home when police found her stating that she was , and had not eaten 4 weeks. She has a poor historian. She is allergic to sulfa, ibuprofen, and penicillin PFSH Past Medical History Arthritis: No Asthma: No Autoimmune Disease: No Blood Disorders: No Bipolar Disorder: Yes Anxiety: Yes Depression: Yes Heart Rhythm Problems: No Cancer: No Cardiovascular Problems: Yes (Hx DVT) High Cholesterol: No Chemotherapy: No Chest Pain: No Congestive Heart Failure: No COPD: No Cerebrovascular Accident: No Diabetes: Yes Diminished Hearing: No Endocrine: Yes Gastrointestinal Disorders: No GERD: No Genitourinary: Yes (UTI) Headaches: No Hiatal Hernia: No Hypertension: Yes Immune Disorder: No Kidney Stones: No Musculoskeletal: Yes (right clubbed foot; right hip replacement) Neurologic: No Psychiatric: Yes (Hx of treatment for Bipolar Disorder) Reproductive: No Respiratory: No Migraines: No Radiation Therapy: No Renal Failure: No Seizures: No Sickle Cell Disease: No Sleep Apnea: No Thyroid Disease: No Ulcer: No Menopausal: Yes : 2 Para: 2 Miscarriage: 0 : 0 Past Surgical History Abdominal Surgery: No AICD: No Arteriovenous Shunt: No Cardiac Surgery: No Ear Surgery: No Endocrine Surgery: No Eye Surgery: No Genitourinary Surgery: No Gynecologic Surgery: No Hysterectomy: No Insulin Pump: No Joint Replacement: No Oral Surgery: No Pacemaker: No Thoracic Surgery: No Other Surgery: Yes (right hip replacement) Social History Alcohol Use: Yes Tobacco Use: No Substance Use: No Allergies-Medications (Allergen,Severity, Reaction): Coded Allergies: Sulfa (Sulfonamide Antibiotics) (Verified Allergy, Severe, Hives, 09/09/17) ibuprofen (Verified Allergy, Severe, HIVES, 09/09/17) penicillin G (Verified Allergy, Severe, HIVES, 09/09/17) Reported Meds & Prescriptions Reported Meds & Active Scripts Active Novolog Inj (Insulin Aspart) 1,000 Unit/10 Ml Vial 1-9 Units SQ ACHS Max dose at bedtime:( )units; sugars less than 70,(0)units; sugars 150-199,(1) unit; sugars 200-249,(3) units; sugars 250-299,(5) units; sugars 300-349,(7) units; sugars greater than 349,(9) units Easy Comfort Pen Ecru 31G X 5 mm 31 Gauge X 3/16" Mis Box SQ DIRECTED Thiothixene 10 Mg Cap 10 Mg PO BID 15 Days Famotidine 20 Mg Tab 10 Mg PO BID 15 Days Depakote ER (Divalproex Sodium) 250 Mg Diana 1,250 Mg PO DAILY 15 Days Xarelto (Rivaroxaban) 20 Mg Tab 20 Mg PO DAILY 15 Days Metoprolol Tartrate 25 Mg Tab 12.5 Mg PO Q12HR 15 Days Review of Systems ROS Limitations: Psychotic Except as stated in HPI: all other systems reviewed are Neg General / Constitutional: No: Fever Eyes: No: Visual changes HENT: No: Headaches Cardiovascular: No: Chest Pain or Discomfort Respiratory: No: Shortness of Breath Gastrointestinal: No: Abdominal Pain Genitourinary: No: Dysuria Musculoskeletal: No: Pain Skin: No Rash Neurologic: No: Weakness Psychiatric: No: Depression Endocrine: No: Polydipsia Hematologic/Lymphatic: No: Easy Bruising Physical Exam Exam Limitations: Uncooperative, Combative, Psychotic Narrative GENERAL: Patient appears in no obvious distress. Patient yells out nonsensical words occasionally. SKIN: Warm and dry. No open wounds or abrasions. No obvious signs of trauma. HEAD: Atraumatic. Normocephalic. EYES: Pupils equal and round. No scleral icterus. No injection or drainage. ENT: No nasal bleeding or discharge. Mucous membranes pink and moist. Pharynx is clear. NECK: Trachea midline. Supple CARDIOVASCULAR: Regular rate and rhythm. RESPIRATORY: No accessory muscle use. Clear to auscultation. Breath sounds equal bilaterally. MUSCULOSKELETAL: Extremities without clubbing, cyanosis, or edema. No obvious deformities. NEUROLOGICAL: Awake and alert. No obvious cranial nerve deficits. Motor grossly within normal limits. Five out of 5 muscle strength in the arms and legs. Data Data Last Documented VS Vital Signs Date Time Temp Pulse Resp B/P (MAP) Pulse Ox O2 Delivery O2 Flow Rate FiO2 09/09/17 10:27 122 09/09/17 10:17 97.6 19 134/66 (88) 99 Orders Orders Complete Blood Count With Diff (09/09/17 10:18) Comprehensive Metabolic Panel (09/09/17 10:18) Thyroid Stimulating Hormone (09/09/17 10:18) Urinalysis - C+S If Indicated (09/09/17 10:18) Cath For Specimen (09/09/17 10:18) Psych Screen (09/09/17 10:18) Haloperidol Inj (Haldol Inj) (09/09/17 10:30) Lorazepam Inj (Ativan Inj) (09/09/17 10:30) Drug Screen, Random Urine (09/09/17 10:18) Alcohol (Ethanol) (09/09/17 10:18) Diphenhydramine Inj (Benadryl Inj) (09/09/17 10:30) Divalproex Er (Depakote Er) (09/09/17 11:30) Metoprolol Tartrate (Lopressor) (09/09/17 21:00) Rivaroxaban (Xarelto) (09/10/17 09:00) Thiothixene (Navane) (09/09/17 11:30) Admit To Inpatient Psych (09/09/17 ) Vital Signs (Adult) MATTHEW.Q12H.E (09/09/17 11:30) Activity Oob Ad Christina (09/09/17 11:30) Lorazepam (Ativan) (09/09/17 11:30) Lorazepam Inj (Ativan Inj) (09/09/17 11:30) Lorazepam (Ativan) (09/09/17 11:30) Lorazepam Inj (Ativan Inj) (09/09/17 11:30) Acetaminophen (Tylenol) (09/09/17 11:30) Magnesium Hydroxide Liq (Milk Of Magnesi (09/09/17 11:30) Al-Mag Hy-Si 40-40-4 Mg/Ml Liq (Mag-Al P (09/09/17 11:30) Nicotine 21 Mg Patch.24 Hr (Habitrol 21 (09/10/17 09:00) Basic Metabolic Panel (Bmp) (09/10/17 06:00) Lipid Profile (09/10/17 06:00) Hemoglobin (Hgb) A1c (09/10/17 06:00) Labs Laboratory Tests Test 09/09/17 11:20 White Blood Count 3.8 TH/MM3 Red Blood Count 3.95 MIL/MM3 Hemoglobin 11.6 GM/DL Hematocrit 33.9 % Mean Corpuscular Volume 85.8 FL Mean Corpuscular Hemoglobin 29.3 PG Mean Corpuscular Hemoglobin Concent 34.1 % Red Cell Distribution Width 15.4 % Platelet Count 144 TH/MM3 Mean Platelet Volume 10.1 FL Neutrophils (%) (Auto) 68.2 % Lymphocytes (%) (Auto) 19.5 % Monocytes (%) (Auto) 11.0 % Eosinophils (%) (Auto) 0.4 % Basophils (%) (Auto) 0.9 % Neutrophils # (Auto) 2.6 TH/MM3 Lymphocytes # (Auto) 0.7 TH/MM3 Monocytes # (Auto) 0.4 TH/MM3 Eosinophils # (Auto) 0.0 TH/MM3 Basophils # (Auto) 0.0 TH/MM3 CBC Comment DIFF FINAL Differential Comment Urine Color YELLOW Urine Turbidity CLEAR Urine pH 5.5 Urine Specific [place] 1.026 Urine Protein TRACE mg/dL Urine Glucose (UA) NEG mg/dL Urine Ketones 150 mg/dL Urine Occult Blood NEG Urine Nitrite POS Urine Bilirubin NEG Urine Urobilinogen 2.0 MG/DL Urine Leukocyte Esterase MOD Urine RBC 1 /hpf Urine WBC 10 /hpf Urine WBC Clumps FEW Urine Squamous Epithelial Cells 1 /hpf Urine Bacteria MOD /hpf Urine Hyaline Casts 1 /lpf Urine Mucus FEW /lpf Microscopic Urinalysis Comment CATH-CULTURE IND Blood Urea Nitrogen 33 MG/DL Creatinine 0.90 MG/DL Random Glucose 128 MG/DL Total Protein 8.0 GM/DL Albumin 3.9 GM/DL Calcium Level 9.0 MG/DL Alkaline Phosphatase 69 U/L Aspartate Amino Transf (AST/SGOT) 16 U/L Alanine Aminotransferase (ALT/SGPT) 15 U/L Total Bilirubin 0.7 MG/DL Sodium Level 145 MEQ/L Potassium Level 3.1 MEQ/L Chloride Level 113 MEQ/L Carbon Dioxide Level 17.9 MEQ/L Anion Gap 14 MEQ/L Estimat Glomerular Filtration Rate 62 ML/MIN Thyroid Stimulating Hormone 3rd Gen 0.786 uIU/ML Urine Opiates Screen NEG Urine Barbiturates Screen NEG Urine Amphetamines Screen NEG Urine Benzodiazepines Screen NEG Urine Cocaine Screen NEG Urine Cannabinoids Screen NEG Ethyl Alcohol Level LESS THAN 3 MG/DL [facility] Medical Decision Making Medical Screen Exam Complete: Yes Emergency Medical Condition: Yes Medical Record Reviewed: Yes Differential Diagnosis Bipolar with psychotic features. History of catatonia. Nino act. Narrative Course Patient appears medically stable at time of exam. Exam is limited secondary to patient's current psychotic state Patient is given 2 mg lorazepam IM, 5 mg Haldol IM, and 50 mg diphenhydramine IM. Psychiatric labs ordered as per protocol. Psych screen is ordered. CBC is unremarkable except for W BC of 3.8, RBC of 3.95, hematocrit is 33.9. Platelets are slightly low at 144. Chemistry shows potassium 3.1, chloride 113, carbon dioxide 17.9, BUN 33, GFR 62 , glucose is 128. TSH is normal Urine tox screen is negative Urinalysis however shows 150 ketones, positive nitrite, moderate leukocyte esterase with 10 WBCs per high-power field with a few white blood cell clumps. Moderate bacteria. Urine culture is placed Patient is given 1 g Rocephin IM Patient is medically cleared for psychiatric evaluation Diagnosis Primary Impression: Bipolar affective disorder, current episode manic with psychotic symptoms Additional Impression: UTI (urinary tract infection) Qualified Codes: N30.00 - Acute cystitis without hematuria Admitting Information Admitting Physician Requests: Admit Condition: Stable Fam Rodriguez Sep 09, 2017 10:25
[2017-09-09] MEDS ORDERED: LORazepam 2 MG/ML VIAL IM ONE (10:30)
[2017-09-09] MEDS ORDERED: diphenhydrAMINE HCL 50 MG/ML VIAL IM ONE (10:30)
[2017-09-09] MEDS ORDERED: HALOPERIDOL LACTATE 5 MG/ML AMP IM ONE (10:30)
[2017-09-09] MEDS ORDERED: LORazepam 0.5 MG TAB PO PRN (11:30)
[2017-09-09] MEDS: DIVALPROEX SODIUM E.R. 250 MG TAB PO SCH (11:30)
[2017-09-09] MEDS ORDERED: ALUMINUM/MAGNESIUM/SIMETH 30 ML CUP PO PRN (11:30)
[2017-09-09] MEDS ORDERED: MAGNESIUM HYDROXIDE SUSP 30 ML CUP PO PRN (11:30)
[2017-09-09] MEDS ORDERED: ACETAMINOPHEN 325 MG TAB PO PRN (11:30)
[2017-09-09] MEDS ORDERED: LORazepam 1 MG TAB PO PRN (11:30)
[2017-09-09] MEDS ORDERED: LORazepam 2 MG/ML VIAL IM PRN ×2 (11:30)
[2017-09-09] MEDS: THIOTHIXENE 10 MG CAP PO SCH ×2 (11:30→20:37)
[2017-09-09 11:34] LABS: AUTOMATED NEUTROPHIL # 2.6 TH/MM3 (1.8-7.7); BASOPHIL % 0.9 % (0.0-2.0); EOSINOPHIL % 0.4 % (0.0-4.0); HEMATOCRIT 33.9 % (35.0-46.0); HEMOGLOBIN 11.6 GM/DL (11.6-15.3); LYMPH % 19.5 % (9.0-44.0); LYMPHOCYTE # 0.7 TH/MM3 (1.0-4.8); MEAN CELL VOLUME 85.8 FL (80.0-100.0); MEAN CORPUSCULAR HEMOGLOBIN 29.3 PG (27.0-34.0); MEAN CORPUSCULAR HGB CONC 34.1 % (32.0-36.0); MEAN PLATELET VOLUME 10.1 FL (7.0-11.0); MONOCYTE # 0.4 TH/MM3 (0-0.9); NEUT % 68.2 % (16.0-70.0); PLATELET COUNT 144 TH/MM3 (150-450); RED BLOOD COUNT 3.95 MIL/MM3 (4.00-5.30); RED CELL DISTRIBUTION WIDTH 15.4 % (11.6-17.2); WHITE BLOOD COUNT 3.8 TH/MM3 (4.0-11.0)
[2017-09-09 11:58] LABS: BACTERIA, URINE MOD /hpf; BILIRUBIN, URINE NEG (NEG); BLOOD, URINE NEG (NEG); GLUCOSE,URINE NEG (NEG); HYALINE CAST, URINE 1 /lpf (RARE); KETONE, URINE 150 mg/dL (NEG); MUCUS URINE FEW /lpf (OCC); NITRITE,URINE POS (NEG); PH, URINE 5.5 (5.0-8.5); SQUAMOUS EPITHELIAL CELL URINE 1 /hpf (0-5); URINE COLOR YELLOW (YELLW/STRAW); URINE LEUKOCYTE ESTERASE MOD (NEG); WHITE BLOOD CELL CLUMPS FEW
[2017-09-09 12:01] LABS: ALBUMIN 3.9 GM/DL (3.4-5.0); ALT (GPT) 15 U/L (10-53); AST (GOT) 16 U/L (15-37); BICARBONATE 17.9 MEQ/L (21.0-32.0); BLOOD UREA NITROGEN 33 MG/DL (7-18); CHLORIDE 113 MEQ/L (98-107); GLOMERULAR FILTRATION RATE 62 ML/MIN (>89); GLUCOSE,RANDOM 128 MG/DL (74-106); SODIUM (NA) 145 MEQ/L (136-145)
[2017-09-09 12:11] LABS: ALKALINE PHOSPHATASE 69 U/L (45-117); TOTAL BILIRUBIN ADULT 0.7 MG/DL (0.2-1.0)
[2017-09-09] MEDS ORDERED: LIDOCAINE HCL 1% 50 ML VIAL INFIL ONE (12:45)
[2017-09-09 12:57] VITALS: BP 135/83; PULSE 91; RESP 17; O2SAT 96
[2017-09-09 13:55] VITALS: BP 132/80; PULSE 91; RESP 16; TEMP 97.8; O2SAT 100
--- NOTE | 2017-09-09 14:30 | HHI.HP ---
Provisional Diagnosis Admission Date Sep 09, 2017 at 11:33 [place] I. Schizoaffective disorder bipolar type Certification of Person's Competence To Provide Express and Informed Consent I have personally examined Theresa Hurley , a person being served at [facility] on, Sep 09, 2017 14:22. Express and informed consent means consent voluntarily given in writing, by a competent person, after sufficient explanation and disclosure of the subject matter involved to enable the person to make a knowing and willful decision without any element of force, fraud, deceit, duress, or other form of constraint or coercion. This person is 18 years of age or older, is not now known to be incompetent to consent to treatment with a guardian advocate, and does not have a health care surrogate or proxy currently making medical treatment decisions. I have found this person to be one of the following: [] Competent to provide express and informed consent, as defined above, for voluntary admission to this facility and is competent to provide express and informed consent for treatment. He/she has the consistent capacity to make well reasoned, willful, and knowing decisions concerning his or her medical or mental health treatment. The person fully and consistently understands the purpose of the admission for examination/placement and is fully capable of personally exercising all rights assured [place] [x] Incompetent to provide express and informed consent to voluntary admission, and this is incompetent to provide express and informed consent to treatment. The person must be transferred to involuntary status and a petition for a guardian advocate filed with the Circuit Court. [] Refusing to provide express and informed consent to voluntary admission but is competent to provide express and informed consent for treatment. The person must be discharged or transferred to involuntary status. Form shall be completed within 24 hours of a person's arrival at the receiving facility and filed in the clinical record of each person: 1. Admitted on a voluntary basis 2. Permitted to provide express and informed consent to his/her own treatment 3. Allowed to transfer from involuntary to voluntary status 4. Prior to permitting a person to consent to his or her own treatment after having been previously found incompetent to consent to treatment. History of Present Illness Capacity: Has Capacity HPI The patient is a 67-year-old woman, well known by this service, psychiatric history of schizoaffective disorder, multiple psychiatric hospitalizations, her last hospitalization was here at [place] in May 2017 , she was under the care of the children 6, documentation review, with long psychiatric history presents emergency department under the Nino act from her home with suicidal ideation. Patient is somewhat catatonic and obviously psychotic. Patient had a welfare check on her home when police found her stating that she was , and had not eaten 4 weeks. The psychiatric evaluation was not possible. The patient was extremely delusional, stating that demons were following her,religiously preoccupied, yelling at people in the ER, combative. Patient had to be medicated with Haldol 5 mg and 2 mg of Ativan IM in order to calm her down. Past Family Social History Coded Allergies: Sulfa (Sulfonamide Antibiotics) (Verified Allergy, Severe, Hives, 09/09/17) ibuprofen (Verified Allergy, Severe, HIVES, 09/09/17) penicillin G (Verified Allergy, Severe, HIVES, 09/09/17) Active Scripts Insulin Aspart Inj (Novolog Inj) 1,000 Unit/10 Ml Vial, 1-9 UNITS SQ ACHS for Blood Sugar Management, #10 ML 0 Refills Max dose at bedtime:( )units; sugars less than 70,(0)units; sugars 150-199,(1) unit; sugars 200-249,(3) units; sugars 250-299,(5) units; sugars 300-349,(7) units; sugars greater than 349,(9) units Prov:Osiel Davis MD 06/05/17 Easy Comfort Pen [place] 31G X 5 mm (Easy Comfort Pen Cascilla 31G X 5 mm) 31 Gauge X 3/16" Mis, BOX SQ DIRECTED for Blood Sugar Management, #1 Prov:Osiel Davis MD 06/05/17 Thiothixene (Thiothixene) 10 Mg Cap, 10 MG PO BID for Mental Health for 15 Days , #30 CAP 1 Refill Prov:Osiel Davis MD 06/05/17 Famotidine (Famotidine) 20 Mg Tab, 10 MG PO BID for Health for 15 Days, #15 TAB 1 Refill Prov:Osiel Davis MD 06/05/17 Divalproex ER (Depakote ER) 250 Mg Diana, 1250 MG PO DAILY for Mental Health for 15 Days, #75 TAB 1 Refill Prov:Osiel Davis MD 06/05/17 Rivaroxaban (Xarelto) 20 Mg Tab, 20 MG PO DAILY for Health for 15 Days, #15 TAB 1 Refill Prov:Osiel Davis MD 06/05/17 Metoprolol Tartrate (Metoprolol Tartrate) 25 Mg Tab, 12.5 MG PO Q12HR for Blood Pressure Management for 15 Days, TAB 1 Refill Prov:Osiel Davis MD 06/05/17 Current Medications Medications (Trade) Dose Ordered Sig/Valentina Route Start Time Stop Time Status Last Admin (Depakote Er) 1,250 mg DAILY PO 09/09/17 11:30 (Lopressor) 12.5 mg Q12HR PO 09/09/17 21:00 (Xarelto) 20 mg DAILY PO 09/10/17 09:00 (Navane) 10 mg BID PO 09/09/17 11:30 (Ativan) 1 mg Q6H PRN PO 09/09/17 11:30 (Ativan Inj) 1 mg Q6H PRN IM 09/09/17 11:30 (Ativan) 0.5 mg Q12H PRN PO 09/09/17 11:30 (Ativan Inj) 0.5 mg Q12H PRN IM 09/09/17 11:30 (Tylenol) 650 mg Q4H PRN PO 09/09/17 11:30 (Milk Of Magnesia Liq) 30 ml DAILY PRN PO 09/09/17 11:30 (Mag-Al Plus Susp Liq) 30 ml Q6H PRN PO 09/09/17 11:30 (Habitrol 21 Mg Patch.24 Hr) 1 patch DAILY T-DERMAL 09/10/17 09:00 Physical Exam Vital Signs Vital Signs Date Time Temp Pulse Resp B/P (MAP) Pulse Ox O2 Delivery O2 Flow Rate FiO2 09/09/17 13:55 97.8 91 16 132/80 (97) 100 09/09/17 12:57 Room Air Lab Results Test 09/09/17 11:20 White Blood Count 3.8 TH/MM3 Red Blood Count 3.95 MIL/MM3 Hemoglobin 11.6 GM/DL Hematocrit 33.9 % Mean Corpuscular Volume 85.8 FL Mean Corpuscular Hemoglobin 29.3 PG Mean Corpuscular Hemoglobin Concent 34.1 % Red Cell Distribution Width 15.4 % Platelet Count 144 TH/MM3 Mean Platelet Volume 10.1 FL Neutrophils (%) (Auto) 68.2 % Lymphocytes (%) (Auto) 19.5 % Monocytes (%) (Auto) 11.0 % Eosinophils (%) (Auto) 0.4 % Basophils (%) (Auto) 0.9 % Neutrophils # (Auto) 2.6 TH/MM3 Lymphocytes # (Auto) 0.7 TH/MM3 Monocytes # (Auto) 0.4 TH/MM3 Eosinophils # (Auto) 0.0 TH/MM3 Basophils # (Auto) 0.0 TH/MM3 CBC Comment DIFF FINAL Differential Comment Urine Color YELLOW Urine Turbidity CLEAR Urine pH 5.5 Urine Specific [place] 1.026 Urine Protein TRACE mg/dL Urine Glucose (UA) NEG mg/dL Urine Ketones 150 mg/dL Urine Occult Blood NEG Urine Nitrite POS Urine Bilirubin NEG Urine Urobilinogen 2.0 MG/DL Urine Leukocyte Esterase MOD Urine RBC 1 /hpf Urine WBC 10 /hpf Urine WBC Clumps FEW Urine Squamous Epithelial Cells 1 /hpf Urine Bacteria MOD /hpf Urine Hyaline Casts 1 /lpf Urine Mucus FEW /lpf Microscopic Urinalysis Comment CATH-CULTURE IND Blood Urea Nitrogen 33 MG/DL Creatinine 0.90 MG/DL Random Glucose 128 MG/DL Total Protein 8.0 GM/DL Albumin 3.9 GM/DL Calcium Level 9.0 MG/DL Alkaline Phosphatase 69 U/L Aspartate Amino Transf (AST/SGOT) 16 U/L Alanine Aminotransferase (ALT/SGPT) 15 U/L Total Bilirubin 0.7 MG/DL Sodium Level 145 MEQ/L Potassium Level 3.1 MEQ/L Chloride Level 113 MEQ/L Carbon Dioxide Level 17.9 MEQ/L Anion Gap 14 MEQ/L Estimat Glomerular Filtration Rate 62 ML/MIN Thyroid Stimulating Hormone 3rd Gen 0.786 uIU/ML Urine Opiates Screen NEG Urine Barbiturates Screen NEG Urine Amphetamines Screen NEG Urine Benzodiazepines Screen NEG Urine Cocaine Screen NEG Urine Cannabinoids Screen NEG Ethyl Alcohol Level LESS THAN 3 MG/DL Date/Time Source Procedure Growth Status 09/09/17 11:20 Urine Catheterized Urine Urine Culture Pending Received Mental Status Examination Appearance: Dirty, Disheveled Consciousness: Alert, Intoxicated Orientation: Person Motor Activity: Abnormal gait Speech: Pressured, Rapid Language: Neologism, Perseveration Memory: Impaired Mood: Angry Affect: Irritable Thought Process & Associations: Loose associations, Disorganized Thought Content: Racing thoughts Hallucination Type: None Delusion Type: Bizarre Suicidal Ideation: No Suicidal Plan: No Suicidal Intention: No Homicidal Ideation: No Homicidal Plan: No Homicidal Intention: No Insight: Poor Judgment: Poor Assessment & Plan Problem List: (1) Schizoaffective disorder, bipolar type ICD Codes: F25.0 - Schizoaffective disorder, bipolar type Status: Chronic Assessment & Plan: On psychiatric evaluation today patient is extremely agitated, disorganized, yelling nonsense, delusional, stating that demons are following her, nurses in the ER wanted to kill her, became physically combative , has to be mechanically and chemically restrained in order to calm her down. Patient definitely needs psychiatric hospitalization for stabilization and safety. I will order Depakote levels. Restart Depakote 1200 mg daily, Thiothixene 10 mg twice a day. Transfer to psychiatric unit once medically clear. Assessment & Plan Estimated LOS: Anatoliy Winchester MD Sep 09, 2017 14:30
[2017-09-09 18:22] VITALS: BP 134/69; PULSE 88; RESP 18; TEMP 98.3; O2SAT 100
[2017-09-09] MEDS: METOPROLOL TARTRATE 25 MG TAB PO SCH (20:37)
[2017-09-09] MEDS ORDERED: LORazepam 2 MG/ML VIAL IM SCH (23:00)
[2017-09-09] MEDS ORDERED: HALOPERIDOL LACTATE 5 MG/ML AMP IM SCH (23:00)
[2017-09-10 06:00] VITALS: BP 112/61; PULSE 77; RESP 16; TEMP 97.4; O2SAT 100
[2017-09-10] MEDS: THIOTHIXENE 10 MG CAP PO SCH ×2 (08:38→20:10)
[2017-09-10] MEDS: DIVALPROEX SODIUM E.R. 250 MG TAB PO SCH (08:38)
[2017-09-10] MEDS: RIVAROXABAN 20 MG TAB PO SCH (08:40)
[2017-09-10] MEDS: METOPROLOL TARTRATE 25 MG TAB PO SCH ×2 (08:40→20:10)
[2017-09-10] MEDS ORDERED: NICOTINE 21 MG/24 HR PATCH T-DERMAL SCH (09:00)
[2017-09-10 11:19] LABS: BICARBONATE 26.6 MEQ/L (21.0-32.0); BLOOD UREA NITROGEN 27 MG/DL (7-18); CHLORIDE 110 MEQ/L (98-107); CHOLESTEROL 166 MG/DL (120-200); CREATININE 0.97 MG/DL (0.50-1.00); GLOMERULAR FILTRATION RATE 57 ML/MIN (>89); GLUCOSE,RANDOM 208 MG/DL (74-106); SODIUM (NA) 144 MEQ/L (136-145); TRIGLYCERIDES 94 MG/DL (42-150)
[2017-09-10 11:20] LABS: CHOLESTEROL/ HDL RATIO 3.07 RATIO; HDL CHOLESTEROL 53.9 MG/DL (40.0-60.0); LDL CHOLESTEROL 93 MG/DL (0-99)
--- NOTE | 2017-09-10 14:03 | HHI.PYPN ---
Subjective Remarks Patient was seen and case discussed with nursing. This is a request for second opinion. Admission note was reviewed. Patient is admitted for agitation at her residential. Today, patient remains psychotic and disorganized. Alert and oriented 2. Compliant with medications no agitated behavior Mental Status Examination Appearance: Dirty, Disheveled Consciousness: Alert, Intoxicated Orientation: Person Motor Activity: Abnormal gait Speech: Pressured, Rapid Language: Neologism, Perseveration Memory: Impaired Mood: Angry Affect: Irritable Thought Process & Associations: Loose associations, Disorganized Thought Content: Bizarre thinking, Racing thoughts Hallucination Type: None Delusion Type: Bizarre Suicidal Ideation: No Suicidal Plan: No Suicidal Intention: No Homicidal Ideation: No Homicidal Plan: No Homicidal Intention: No Insight: Poor Judgment: Poor Results Labs Test 09/10/17 09:34 Blood Urea Nitrogen 27 MG/DL Creatinine 0.97 MG/DL Random Glucose 208 MG/DL Calcium Level 9.0 MG/DL Sodium Level 144 MEQ/L Potassium Level 3.2 MEQ/L Chloride Level 110 MEQ/L Carbon Dioxide Level 26.6 MEQ/L Anion Gap 7 MEQ/L Estimat Glomerular Filtration Rate 57 ML/MIN Triglycerides Level 94 MG/DL Cholesterol Level 166 MG/DL LDL Cholesterol 93 MG/DL HDL Cholesterol 53.9 MG/DL Cholesterol/HDL Ratio 3.07 RATIO Date/Time Source Procedure Growth Status 09/09/17 11:20 Urine Catheterized Urine Urine Culture Pending Received Vitals/IOs Vital Signs Date Time Temp Pulse Resp B/P (MAP) Pulse Ox O2 Delivery O2 Flow Rate FiO2 09/10/17 06:00 97.4 77 16 112/61 (78) 100 09/09/17 12:57 Room Air Intake and Output 09/10/17 09/10/17 09/11/17 08:00 16:00 00:00 Intake Total 240 ml Balance 240 ml Assessment & Plan Problem List: (1) Schizoaffective disorder, bipolar type ICD Codes: F25.0 - Schizoaffective disorder, bipolar type Status: Chronic Assessment & Plan I agree with the first opinion to continue petition. Criteria include acute psychosis Justification for Cont. Inpt. Patient would decompensate in a less restrictive setting Cody Chaidez DO Sep 10, 2017 14:03
[2017-09-10 17:56] VITALS: BP 152/76; PULSE 72; RESP 17; TEMP 97.9; O2SAT 99
[2017-09-11 05:12] VITALS: BP 130/72; PULSE 78; RESP 18; TEMP 97.6; O2SAT 97
[2017-09-11] MEDS: METOPROLOL TARTRATE 25 MG TAB PO SCH ×2 (08:10→20:42)
[2017-09-11] MEDS: THIOTHIXENE 10 MG CAP PO SCH ×2 (08:10→20:42)
[2017-09-11] MEDS: RIVAROXABAN 20 MG TAB PO SCH (08:10)
[2017-09-11] MEDS: DIVALPROEX SODIUM E.R. 250 MG TAB PO SCH (08:11)
[2017-09-11 16:10] LABS: HEMOGLOBIN A1C 6.1 % (4.3-6.0)
[2017-09-11] MEDS ORDERED: hydrOXYzine HCL 50 MG TAB PO PRN (17:30)
--- NOTE | 2017-09-11 17:34 | HHI.PYPN ---
Subjective Remarks Patient seen in day room with nurse Hugo, chart review, patient discussed with nurse. I finished the initial psychiatric template orders, and the reconsolidation medication orders. Patient seen in the day room she is alert did recognize me from prior contact continues paranoid grandiose somewhat delusional related to her daughter. States she needs to go home to care for her daughter. This is similar to prior psychotic episodes leading to hospitalizations Review of Systems Except as stated in HPI: all other systems reviewed are Neg Mental Status Examination Appearance: Dirty, Disheveled Consciousness: Alert, Intoxicated Orientation: Person Motor Activity: Abnormal gait Speech: Pressured, Rapid Language: Neologism, Perseveration Memory: Impaired Mood: Angry Affect: Irritable Thought Process & Associations: Loose associations, Disorganized Thought Content: Bizarre thinking, Racing thoughts Hallucination Type: None Delusion Type: Bizarre Suicidal Ideation: No Suicidal Plan: No Suicidal Intention: No Homicidal Ideation: No Homicidal Plan: No Homicidal Intention: No Insight: Poor Judgment: Poor Results Labs Date/Time Source Procedure Growth Status 09/09/17 11:20 Urine Catheterized Urine Urine Culture - Final Klebsiella Pneumoniae Complete Vitals/IOs Vital Signs Date Time Temp Pulse Resp B/P (MAP) Pulse Ox O2 Delivery O2 Flow Rate FiO2 09/11/17 05:12 97.6 78 18 130/72 (91) 97 09/09/17 12:57 Room Air Intake and Output 09/11/17 09/11/17 09/12/17 08:00 16:00 00:00 Intake Total 0 ml 600 ml Balance 0 ml 600 ml Assessment & Plan Problem List: (1) Schizoaffective disorder, bipolar type ICD Codes: F25.0 - Schizoaffective disorder, bipolar type Status: Chronic Assessment & Plan Estimated LOS: days she continue psychotic delusional, though no significant behavioral problems at this time. There is been noncompliance with medication prior to this also Justification for Cont. Inpt. At this time patient decompensated placed a lower level of care Discharge Planning Hopefully to return home with family Tim Ca MD Sep 11, 2017 17:34
[2017-09-11 18:01] VITALS: BP 106/60; PULSE 69; RESP 18; TEMP 98.3; O2SAT 99
[2017-09-11] MEDS: FAMOTIDINE 20 MG TAB PO SCH (20:42)
[2017-09-12 05:58] VITALS: BP 108/57; PULSE 73; RESP 16; TEMP 97.7; O2SAT 98
[2017-09-12 08:37] VITALS: BP 137/76; PULSE 82
[2017-09-12] MEDS: DIVALPROEX SODIUM E.R. 250 MG TAB PO SCH (08:39)
[2017-09-12] MEDS: FAMOTIDINE 20 MG TAB PO SCH ×2 (08:39→21:27)
[2017-09-12] MEDS: RIVAROXABAN 20 MG TAB PO SCH (08:40)
[2017-09-12] MEDS: METOPROLOL TARTRATE 25 MG TAB PO SCH ×2 (08:40→21:27)
[2017-09-12] MEDS: THIOTHIXENE 10 MG CAP PO SCH (08:40)
--- NOTE | 2017-09-12 11:40 | HHI.PYPN ---
Subjective Remarks Patient seen in [place] with nurse Kristie, chart reviewed, patient discussed with nurse. She continues intense intrusive with increased range and intensity of her affect. Today asking me if I were to sign a form giving her permission to drive. Patient is compliant with the medications that the present time she still remains markedly grandiose somewhat delusional intense. Will increase navane to 15 mg twice a day Review of Systems Except as stated in HPI: all other systems reviewed are Neg Mental Status Examination Appearance: Dirty, Disheveled Consciousness: Alert, Intoxicated Orientation: Person Motor Activity: Abnormal gait Speech: Pressured, Rapid Language: Neologism, Perseveration Memory: Impaired Mood: Angry Affect: Irritable Thought Process & Associations: Loose associations, Disorganized Thought Content: Bizarre thinking, Racing thoughts Hallucination Type: None Delusion Type: Bizarre Suicidal Ideation: No Suicidal Plan: No Suicidal Intention: No Homicidal Ideation: No Homicidal Plan: No Homicidal Intention: No Insight: Poor Judgment: Poor Results Labs Date/Time Source Procedure Growth Status 09/09/17 11:20 Urine Catheterized Urine Urine Culture - Final Klebsiella Pneumoniae Complete Vitals/IOs Vital Signs Date Time Temp Pulse Resp B/P (MAP) Pulse Ox O2 Delivery O2 Flow Rate FiO2 09/12/17 08:37 82 137/76 (96) 09/12/17 05:58 97.7 16 98 09/09/17 12:57 Room Air Intake and Output 09/12/17 09/12/17 09/12/17 07:59 15:59 23:59 Intake Total 240 ml Balance 240 ml Assessment & Plan Problem List: (1) Schizoaffective disorder, bipolar type ICD Codes: F25.0 - Schizoaffective disorder, bipolar type Status: Chronic Assessment & Plan Estimated LOS: days patient remained psychotic intense grandiose. She medication adjustment above Justification for Cont. Inpt. At this time patient will decompensate or placed in a lower level of care Discharge Planning Placement needs to be determined perhaps back home with family Tim Ca MD Sep 12, 2017 11:40
[2017-09-12 13:40] VITALS: BP 108/57; PULSE 73; RESP 18; TEMP 97.7; O2SAT 98
--- NOTE | 2017-09-12 14:23 | PD.TTN ---
Patient Problems 1. Discharge planning 2. Medication compliance 3. Knowledge deficit 4. Lack of coping skills Progress Toward Goals Provider Present: Dr. Jose Miguel Ca Provider Input: 09/11/17 patient is well known to us, she has not been here since May Psychiatric Counselors Present: Stephanie Davis LCSW Psych Therapist Input: 09/11/17 she was Nino Acted from home Group Spec/RT/OT/CHENG Present: Fam Metz OT Group Spec/RT/OT/CHENG Input: 09/11/17 not attended any groups yet Documentation Teaching Recipient: Stephanie Zhang LCSW Sep 12, 2017 14:23
[2017-09-12 17:19] VITALS: BP 132/75; PULSE 96; RESP 17; TEMP 98.7; O2SAT 98
[2017-09-12 18:05] VITALS: BP 132/75; PULSE 96; RESP 17; TEMP 98.7; O2SAT 98
[2017-09-12] MEDS: THIOTHIXENE 5 MG CAP PO SCH (21:00)
[2017-09-13 05:48] VITALS: BP 129/71; PULSE 103; RESP 17; TEMP 99.8; O2SAT 97
[2017-09-13 06:00] VITALS: BP 129/71; PULSE 103; RESP 17; TEMP 99.5; O2SAT 97
[2017-09-13 08:40] VITALS: BP 120/64
[2017-09-13] MEDS: DIVALPROEX SODIUM E.R. 250 MG TAB PO SCH (08:56)
[2017-09-13] MEDS: METOPROLOL TARTRATE 25 MG TAB PO SCH ×2 (08:57→21:14)
[2017-09-13] MEDS: FAMOTIDINE 20 MG TAB PO SCH ×2 (08:57→21:14)
[2017-09-13] MEDS: RIVAROXABAN 20 MG TAB PO SCH (08:58)
[2017-09-13] MEDS: THIOTHIXENE 5 MG CAP PO SCH ×2 (09:02→21:00)
[2017-09-13 10:08] LABS: BICARBONATE 23.9 MEQ/L (21.0-32.0); BLOOD UREA NITROGEN 21 MG/DL (7-18); CALCIUM 8.2 MG/DL (8.5-10.1); CHLORIDE 105 MEQ/L (98-107); CHOLESTEROL 130 MG/DL (120-200); CREATININE 1.12 MG/DL (0.50-1.00); GLOMERULAR FILTRATION RATE 48 ML/MIN (>89); GLUCOSE,RANDOM 184 MG/DL (74-106); SODIUM (NA) 139 MEQ/L (136-145)
[2017-09-13 10:09] LABS: TRIGLYCERIDES 83 MG/DL (42-150)
[2017-09-13 10:12] LABS: CHOLESTEROL/ HDL RATIO 3.35 RATIO; HDL CHOLESTEROL 38.8 MG/DL (40.0-60.0); LDL CHOLESTEROL 75 MG/DL (0-99)
--- NOTE | 2017-09-13 11:50 | HHI.PYPN ---
Subjective Remarks Patient seen in day room with nurse Kristie, chart review, patient discussed with nurse. Patient somewhat calmer more focused. She denies suicidality homicidality voices or visions. She is compliant with her medication. The present time I feel patient does have capacity to sign for her medications and for her admission thus I will lift Nino act allow patient to sign voluntary Review of Systems Except as stated in HPI: all other systems reviewed are Neg Mental Status Examination Appearance: Dirty, Disheveled Consciousness: Alert, Intoxicated Orientation: Person Motor Activity: Abnormal gait Speech: Pressured, Rapid Language: Neologism, Perseveration Memory: Impaired Mood: Angry Affect: Irritable Thought Process & Associations: Loose associations, Disorganized Thought Content: Bizarre thinking, Racing thoughts Hallucination Type: None Delusion Type: Bizarre Suicidal Ideation: No Suicidal Plan: No Suicidal Intention: No Homicidal Ideation: No Homicidal Plan: No Homicidal Intention: No Insight: Poor Judgment: Poor Results Labs Test 09/13/17 08:46 Blood Urea Nitrogen 21 MG/DL Creatinine 1.12 MG/DL Random Glucose 184 MG/DL Calcium Level 8.2 MG/DL Sodium Level 139 MEQ/L Potassium Level 3.2 MEQ/L Chloride Level 105 MEQ/L Carbon Dioxide Level 23.9 MEQ/L Anion Gap 10 MEQ/L Estimat Glomerular Filtration Rate 48 ML/MIN Triglycerides Level 83 MG/DL Cholesterol Level 130 MG/DL LDL Cholesterol 75 MG/DL HDL Cholesterol 38.8 MG/DL Cholesterol/HDL Ratio 3.35 RATIO Date/Time Source Procedure Growth Status 09/09/17 11:20 Urine Catheterized Urine Urine Culture - Final Klebsiella Pneumoniae Complete Vitals/IOs Vital Signs Date Time Temp Pulse Resp B/P (MAP) Pulse Ox O2 Delivery O2 Flow Rate FiO2 09/13/17 08:40 120/64 (82) 09/13/17 06:00 99.5 103 17 97 09/09/17 12:57 Room Air Intake and Output 09/13/17 09/13/17 09/14/17 08:00 16:00 00:00 Intake Total 240 ml Output Total 3 ml Balance 237 ml Assessment & Plan Problem List: (1) Schizoaffective disorder, bipolar type ICD Codes: F25.0 - Schizoaffective disorder, bipolar type Status: Chronic Assessment & Plan Estimated LOS: days patient psychosis is resolving, she is compliant with medications. At this time will lift Nino act allow patient to sign voluntary Justification for Cont. Inpt. At this time patient with decompensated placed a lower level of care Discharge Planning Probable return home with family Tim Ca MD Sep 13, 2017 11:50
--- NOTE | 2017-09-13 15:30 | PD.TTN ---
Patient Problems 1. Discharge planning 2. Medication compliance 3. Knowledge deficit 4. Lack of coping skills Progress Toward Goals Provider Present: Dr. Jose Miguel Ca Provider Input: 09/13/17 will discuss to sign voluntary, will go home once improved 09/11/17 patient is well known to us, she has not been here since May Psychiatric Counselors Present: Stephanie Davis LCSW Psych Therapist Input: 09/13/17 talked with her DCF worker investigating an incident if patien could go on outpatient commitment program be helpful will go home once better, she is compliant and pleasant since on the unit 09/11/17 she was Nino Acted from home Group Spec/RT/OT/CHENG Present: Fam Metz, DOM Group Spec/RT/OT/CHENG Input: 09/13/17 participates in most groups 09/11/17 not attended any groups yet Documentation Teaching Recipient: Stephanie Zhang LCSW Sep 13, 2017 15:30
[2017-09-13 16:06] LABS: HEMOGLOBIN A1C 6.1 % (4.3-6.0)
[2017-09-13 17:28] VITALS: BP 115/77; PULSE 85; RESP 18; TEMP 98.6; O2SAT 99
[2017-09-13] MEDS: metroNIDAZOLE 500 MG TAB PO SCH ×2 (17:46→23:33)
--- NOTE | 2017-09-13 18:22 | PD.CONS ---
History of Present Illness Consult Requested By psych Reason for Consult med mgt Primary Care Physician Abdoulaye Barclay DO Diagnoses: History of Present Illness frequent readmissions to psych unit for schitzophrenia pt is non compliant with out patient meds Review of Systems Gastrointestinal: COMPLAINS OF: Diarrhea Psychiatric: COMPLAINS OF: Anxiety, Confusion, Hallucinations Past Family Social History Allergies: Coded Allergies: Sulfa (Sulfonamide Antibiotics) (Verified Allergy, Severe, Hives, 09/09/17) ibuprofen (Verified Allergy, Severe, HIVES, 09/09/17) penicillin G (Verified Allergy, Severe, HIVES, 09/09/17) Past Medical History schitzophrenia dvt Reported Medications Reported Meds & Active Scripts Active Novolog Inj (Insulin Aspart) 1,000 Unit/10 Ml Vial 1-9 Units SQ ACHS Max dose at bedtime:( )units; sugars less than 70,(0)units; sugars 150-199,(1) unit; sugars 200-249,(3) units; sugars 250-299,(5) units; sugars 300-349,(7) units; sugars greater than 349,(9) units Easy Comfort Pen [place] 31G X 5 mm 31 Gauge X 3/16" Mis Box SQ DIRECTED Thiothixene 10 Mg Cap 10 Mg PO BID 15 Days Famotidine 20 Mg Tab 10 Mg PO BID 15 Days Depakote ER (Divalproex Sodium) 250 Mg Diana 1,250 Mg PO DAILY 15 Days Xarelto (Rivaroxaban) 20 Mg Tab 20 Mg PO DAILY 15 Days Metoprolol Tartrate 25 Mg Tab 12.5 Mg PO Q12HR 15 Days Active Ordered Medications Inpatient Medications Acetaminophen (Tylenol) 650 mg Q4H PRN PO Pain 1-5 or Temp >101F; Start at 11:30 Al Hydrox/Mg Hydrox/Simethicone (Mag-Al Plus Susp Liq) 30 ml Q6H PRN PO DYSPEPSIA; Start 09/09/17 at 11:30 Ceftriaxone Sodium (Rocephin Inj) 1,000 mg ONCE ONCE IM Last administered on at 12:55; Start 09/09/17 at 12:30; Stop 09/09/17 at 12:31; Status DC Diphenhydramine HCl (Benadryl Inj) 50 mg ONCE ONCE IM Last administered on 09/09at 10:39; Start 09/09/17 at 10:30; Stop 09/09/17 at 10:31; Status DC Divalproex Sodium (Depakote Er) 1,250 mg DAILY PO Last administered on 08:56; Start 09/09/17 at 11:30 Famotidine (Pepcid) 20 mg BID PO ; Start 09/13/17 at 21:00 Haloperidol Lactate (Haldol Inj) 5 mg NOW IM Last administered on 09/09/17at 22: 57; Start 09/09/17 at 23:00; Stop 09/10/17 at 01:20; Status DC Hydroxyzine HCl (Atarax) 50 mg Q6H PRN PO ANXIETY; Start 09/11/17 at 17:30 Lidocaine HCl (Xylocaine 1% Inj (50 ml)) 50 ml ONCE ONCE INFIL Last administered on 09/09/17 12:56; Start 09/09/17 at 12:45; Stop 09/09/17 at 12:46; Status DC Lorazepam (Ativan Inj) 2 mg NOW IM Last administered on 09/09/17at 22:57; Start 09/09/17 at 23:00; Stop 09/10/17 at 01:20; Status DC Lorazepam (Ativan) 0.5 mg Q12H PRN PO MODERATE TO SEVERE ANXIETY; Start at 11:30; Status Future Hold Magnesium Hydroxide (Milk Of Magnesia Liq) 30 ml DAILY PRN PO CONSTIPATION; Start 09/09/17 at 11:30 Metoprolol Tartrate (Lopressor) 12.5 mg Q12HR PO Last administered on 09/13/17at 08:57; Start 09/09/17 at 21:00 Metronidazole (Flagyl) 500 mg Q6HR PO Last administered on 09/13/17 17:46; Start 09/13/17 at 18:00; Stop 09/23/17 at 12:01 Nicotine (Habitrol 21 Mg Patch.24 Hr) 1 patch DAILY T-DERMAL ; Start 09/10/17 at 09:00; Stop 09/10/17 at 09:00; Status DC Rivaroxaban (Xarelto) 20 mg DAILY PO Last administered on 09/13/17at 08:58; Start 09/10/17 at 09:00 Sodium Chloride 1,000 ml @ 125 mls/hr Q8H IV ; Start 09/13/17 at 17:00 Thiothixene (Navane) 15 mg BID PO Last administered on 09/13/17at 09:02; Start at 21:00 Social History non smoker non drinker Physical Exam Vital Signs Vital Signs Date Time Temp Pulse Resp B/P (MAP) Pulse Ox O2 Delivery O2 Flow Rate FiO2 09/13/17 17:28 98.6 85 18 115/77 (90) 99 09/13/17 08:40 120/64 (82) 09/13/17 06:00 99.5 103 17 129/71 (90) 97 09/13/17 05:48 99.8 103 17 129/71 (90) 97 Physical Exam GENERAL: This is a well-nourished, well-developed patient, in no apparent distress.but very confused SKIN: No rashes, ecchymoses or lesions. Cool and dry. HEAD: Atraumatic. Normocephalic. No temporal or scalp tenderness. EYES: Pupils equal round and reactive. Extraocular motions intact. No scleral icterus. No injection or drainage. ENT: Nose without bleeding, purulent drainage or septal hematoma. Throat without erythema, tonsillar hypertrophy or exudate. Uvula midline. Airway patent. NECK: Trachea midline. No JVD or lymphadenopathy. Supple, nontender, no meningeal signs. CARDIOVASCULAR: Regular rate and rhythm without murmurs, gallops, or rubs. RESPIRATORY: Clear to auscultation. Breath sounds equal bilaterally. No wheezes , rales, or rhonchi. GASTROINTESTINAL: Abdomen soft, non-tender, nondistended. No hepato-splenomegaly , or palpable masses. No guarding.hyperactive bowelsounde MUSCULOSKELETAL: Extremities without clubbing, cyanosis, or edema. No joint tenderness, effusion, or edema noted. No calf tenderness. Negative Homans sign bilaterally. NEUROLOGICAL: Awake Cranial nerves II through XII intact. Motor and sensory grossly within normal limits. Five out of 5 muscle strength in all muscle groups. Normal speech. very confused Laboratory Laboratory Tests Test 09/13/17 08:46 09/13/17 15:45 Blood Urea Nitrogen 21 Creatinine 1.12 Random Glucose 184 Calcium Level 8.2 Sodium Level 139 Potassium Level 3.2 Chloride Level 105 Carbon Dioxide Level 23.9 Anion Gap 10 Estimat Glomerular Filtration Rate 48 Hemoglobin A1c 6.1 Triglycerides Level 83 Cholesterol Level 130 LDL Cholesterol 75 HDL Cholesterol 38.8 Cholesterol/HDL Ratio 3.35 Date/Time Source Procedure Growth Status 09/09/17 11:20 Urine Catheterized Urine Urine Culture - Final Klebsiella Pneumoniae Complete Result Diagram: 09/09/17 1120 09/13/17 0846 Course [facility] developed [facility] begin stool c-diff Assessment and Plan Assessment and Plan enteritis begin flagyl ck stool for op and cdiff Abdoulaye Barclay DO Sep 13, 2017 18:21
[2017-09-13] MEDS: SODIUM CHLOR 0.9% 1000 ML INJ 1,000 ML IV SCH ×2 (21:10→22:54)
[2017-09-14 06:00] VITALS: BP 116/67; PULSE 70; RESP 16; TEMP 98; O2SAT 95
[2017-09-14] MEDS: metroNIDAZOLE 500 MG TAB PO SCH ×3 (06:00→17:38)
[2017-09-14 07:25] LABS: AUTOMATED NEUTROPHIL # 4.2 TH/MM3 (1.8-7.7); BASOPHIL % 0.4 % (0.0-2.0); EOSINOPHIL % 0.7 % (0.0-4.0); HEMATOCRIT 33.9 % (35.0-46.0); HEMOGLOBIN 11.3 GM/DL (11.6-15.3); LYMPH % 19.5 % (9.0-44.0); LYMPHOCYTE # 1.2 TH/MM3 (1.0-4.8); MEAN CELL VOLUME 86.4 FL (80.0-100.0); MEAN CORPUSCULAR HEMOGLOBIN 28.8 PG (27.0-34.0); MEAN CORPUSCULAR HGB CONC 33.3 % (32.0-36.0); MEAN PLATELET VOLUME 10.4 FL (7.0-11.0); MONO % 10.8 % (0.0-8.0); MONOCYTE # 0.7 TH/MM3 (0-0.9); NEUT % 68.6 % (16.0-70.0); PLATELET COUNT 154 TH/MM3 (150-450); RED BLOOD COUNT 3.92 MIL/MM3 (4.00-5.30); RED CELL DISTRIBUTION WIDTH 15.2 % (11.6-17.2); WHITE BLOOD COUNT 6.1 TH/MM3 (4.0-11.0)
[2017-09-14 08:04] LABS: ALKALINE PHOSPHATASE 59 U/L (45-117); ALT (GPT) 10 U/L (10-53); AST (GOT) 9 U/L (15-37); BICARBONATE 22.9 MEQ/L (21.0-32.0); BLOOD UREA NITROGEN 19 MG/DL (7-18); CALCIUM 8.1 MG/DL (8.5-10.1); CHLORIDE 107 MEQ/L (98-107); CREATININE 0.89 MG/DL (0.50-1.00); GLOMERULAR FILTRATION RATE 63 ML/MIN (>89); GLUCOSE,RANDOM 119 MG/DL (74-106); SODIUM (NA) 138 MEQ/L (136-145); TOTAL BILIRUBIN ADULT 0.4 MG/DL (0.2-1.0); TOTAL PROTEIN 6.9 GM/DL (6.4-8.2)
[2017-09-14] MEDS: METOPROLOL TARTRATE 25 MG TAB PO SCH ×2 (09:00→21:00)
[2017-09-14] MEDS: SODIUM CHLOR 0.9% 1000 ML INJ 1,000 ML IV SCH ×2 (09:00→17:00)
[2017-09-14] MEDS: FAMOTIDINE 20 MG TAB PO SCH ×2 (09:00→21:00)
[2017-09-14] MEDS: RIVAROXABAN 20 MG TAB PO SCH ×2 (09:00→12:32)
[2017-09-14] MEDS: THIOTHIXENE 5 MG CAP PO SCH ×3 (09:00→21:00)
[2017-09-14] MEDS: DIVALPROEX SODIUM E.R. 250 MG TAB PO SCH (09:00)
[2017-09-14] MEDS ORDERED: POTASSIUM CHLORIDE 10 MEQ CONTROLLED RELEASE TAB PO ONE (09:15)
--- NOTE | 2017-09-14 10:20 | HHI.PR ---
Subjective Remarks Multiple loose stools Objective Vital Signs Date Time Temp Pulse Resp B/P (MAP) Pulse Ox O2 Delivery O2 Flow Rate FiO2 09/14/17 06:00 98.0 70 16 116/67 (83) 95 09/13/17 17:28 98.6 85 18 115/77 (90) 99 I/O 09/13/17 09/13/17 09/13/17 09/14/17 09/14/17 09/14/17 07:00 15:00 23:00 07:00 15:00 23:00 Intake Total 1200 ml 360 ml 630 ml Output Total 3 ml Balance -3 ml 1200 ml 360 ml 630 ml Intake Oral 1200 ml 360 ml 480 ml IV Total 150 ml Output Stool Total 3 ml # Voids 2 3 2 1 # Bowel Movements 1 8 5 Result Diagram: 09/14/1764209/14/17642 Objective Remarks GENERAL: This is a well-nourished, well-developed patient, in no apparent distress.but very pleasantly confused SKIN: No rashes, ecchymoses or lesions. Cool and dry. HEAD: Atraumatic. Normocephalic. No temporal or scalp tenderness. EYES: Pupils equal round and reactive. Extraocular motions intact. No scleral icterus. No injection or drainage. ENT: Nose without bleeding, purulent drainage or septal hematoma. Throat without erythema, tonsillar hypertrophy or exudate. Uvula midline. Airway patent. NECK: Trachea midline. No JVD or lymphadenopathy. Supple, nontender, no meningeal signs. CARDIOVASCULAR: Regular rate and rhythm without murmurs, gallops, or rubs. RESPIRATORY: Clear to auscultation. Breath sounds equal bilaterally. No wheezes , rales, or rhonchi. GASTROINTESTINAL: Abdomen soft, non-tender, nondistended. No hepato-splenomegaly , or palpable masses. No guarding.hyperactive bowel sounds MUSCULOSKELETAL: Extremities without clubbing, cyanosis, or edema. No joint tenderness, effusion, or edema noted. No calf tenderness. Negative Homans sign bilaterally. NEUROLOGICAL: Awake Cranial nerves II through XII intact. Motor and sensory grossly within normal limits. Five out of 5 muscle strength in all muscle groups. Normal speech. very confused Laboratory Medications and IVs Current Medications Medications (Trade) Dose Ordered Sig/[place]ent[place] Route Start Time Stop Time Status Last Admin (Depakote Er) 1,250 mg DAILY PO 3/3/18 11:30 09/14/17 09:00 (Lopressor) 12.5 mg Q12HR PO 09/09/17 21:00 09/14/17 09:00 (Xarelto) 20 mg DAILY PO 09/10/17 09:00 09/13/17 08:58 (Ativan) 1 mg Q6H PRN PO 09/09/17 11:30 Future Hold (Ativan Inj) 1 mg Q6H PRN IM 09/09/17 11:30 Future Hold (Ativan) 0.5 mg Q12H PRN PO 09/09/17 11:30 Future Hold (Ativan Inj) 0.5 mg Q12H PRN IM 09/09/17 11:30 Future Hold (Tylenol) 650 mg Q4H PRN PO 09/09/17 11:30 09/14/17 09:50 (Milk Of Magnesia Liq) 30 ml DAILY PRN PO 09/09/17 11:30 (Mag-Al Plus Susp Liq) 30 ml Q6H PRN PO 09/09/17 11:30 (Atarax) 50 mg Q6H PRN PO 09/11/17 17:30 (Navane) 15 mg BID PO 09/12/17 21:00 09/13/17 09:02 (Pepcid) 20 mg BID PO 09/13/17 21:00 09/14/17 09:00 Sodium Chloride 1,000 ml @ 125 mls/hr Q8H IV 09/13/17 17:00 09/14/17 09:00 (Flagyl) 500 mg Q6HR PO 09/13/17 18:00 09/23/17 12:01 09/14/17 06:00 (KCl) 10 meq BID PO 09/14/17 21:00 Assessment and Plan Problem List: (1) Diarrhea ICD Codes: R19.7 - Diarrhea, unspecified Plan: Stool sent for cdiff, started on Flagyl, Metamucil (2) Hypokalemia ICD Codes: E87.6 - Hypokalemia Plan: Potassium 2.6, this am r/t diarrhea. Will replace, check in am (3) Bipolar affective disorder, current episode manic with psychotic symptoms ICD Codes: F31.2 - Bipolar affective disorder, current episode manic with psychotic symptoms Status: Chronic Plan: Followed By Psych Discharge Planning Home when stable Lety Mendoza Sep 14, 2017 10:20
--- NOTE | 2017-09-14 16:19 | HHI.PYPN ---
Subjective Remarks Patient seen in her room with nurse, patient alert oriented somewhat intense loud and childlike, though no significant behavioral problems. Patient also seen by Dr. Mensah today he does recommend the possibility of elevating a long- acting decanoate to the regimen. Will offer patient in [place] orally 6 mg daily for a few days if she tolerates it well the considering vagus sustain a patient still with loose stool. We'll get stool ova and. Parasite Review of Systems Except as stated in HPI: all other systems reviewed are Neg Mental Status Examination Appearance: Dirty, Disheveled Consciousness: Alert, Intoxicated Orientation: Person Motor Activity: Abnormal gait Speech: Pressured, Rapid Language: Neologism, Perseveration Memory: Impaired Mood: Angry Affect: Irritable Thought Process & Associations: Loose associations, Disorganized Thought Content: Bizarre thinking, Racing thoughts Hallucination Type: None Delusion Type: Bizarre Suicidal Ideation: No Suicidal Plan: No Suicidal Intention: No Homicidal Ideation: No Homicidal Plan: No Homicidal Intention: No Insight: Poor Judgment: Poor Results Labs Test 09/14/17 06:43 White Blood Count 6.1 TH/MM3 Red Blood Count 3.92 MIL/MM3 Hemoglobin 11.3 GM/DL Hematocrit 33.9 % Mean Corpuscular Volume 86.4 FL Mean Corpuscular Hemoglobin 28.8 PG Mean Corpuscular Hemoglobin Concent 33.3 % Red Cell Distribution Width 15.2 % Platelet Count 154 TH/MM3 Mean Platelet Volume 10.4 FL Neutrophils (%) (Auto) 68.6 % Lymphocytes (%) (Auto) 19.5 % Monocytes (%) (Auto) 10.8 % Eosinophils (%) (Auto) 0.7 % Basophils (%) (Auto) 0.4 % Neutrophils # (Auto) 4.2 TH/MM3 Lymphocytes # (Auto) 1.2 TH/MM3 Monocytes # (Auto) 0.7 TH/MM3 Eosinophils # (Auto) 0.0 TH/MM3 Basophils # (Auto) 0.0 TH/MM3 CBC Comment DIFF FINAL Differential Comment Blood Urea Nitrogen 19 MG/DL Creatinine 0.89 MG/DL Random Glucose 119 MG/DL Total Protein 6.9 GM/DL Albumin 3.0 GM/DL Calcium Level 8.1 MG/DL Alkaline Phosphatase 59 U/L Aspartate Amino Transf (AST/SGOT) 9 U/L Alanine Aminotransferase (ALT/SGPT) 10 U/L Total Bilirubin 0.4 MG/DL Sodium Level 138 MEQ/L Potassium Level 2.6 MEQ/L Chloride Level 107 MEQ/L Carbon Dioxide Level 22.9 MEQ/L Anion Gap 8 MEQ/L Estimat Glomerular Filtration Rate 63 ML/MIN Date/Time Source Procedure Growth Status 09/09/17 11:20 Urine Catheterized Urine Urine Culture - Final Klebsiella Pneumoniae Complete Vitals/IOs Vital Signs Date Time Temp Pulse Resp B/P (MAP) Pulse Ox O2 Delivery O2 Flow Rate FiO2 09/14/17 06:00 98.0 70 16 116/67 (83) 95 Intake and Output 09/14/17 09/14/17 09/15/17 08:00 16:00 00:00 Intake Total 480 ml Balance 480 ml Assessment & Plan Problem List: (1) Schizoaffective disorder, bipolar type ICD Codes: F25.0 - Schizoaffective disorder, bipolar type Status: Chronic Assessment & Plan Estimated LOS: days patient to somewhat elevated loud and intense, she medication adjustments above Justification for Cont. Inpt. At this time patient will decompensate of placed in a lower level of care Discharge Planning Part will return home with family Tim Ca MD Sep 14, 2017 16:19
[2017-09-14] MEDS: POTASSIUM CHLORIDE 10 MEQ CAP PO SCH (21:00)
[2017-09-15] MEDS: SODIUM CHLOR 0.9% 1000 ML INJ 1,000 ML IV SCH ×2 (01:00→09:00)
[2017-09-15] MEDS: metroNIDAZOLE 500 MG TAB PO SCH ×5 (01:29→23:30)
[2017-09-15 06:33] VITALS: BP 112/77; PULSE 68; RESP 16; TEMP 97.6; O2SAT 99
--- NOTE | 2017-09-15 08:58 | HHI.PYPN ---
Subjective Remarks Patient seen in her room with nurse Rios, chart review, patient discussed with nurse. We continue to do evaluation of her stool per labs request, patient calm cooperative is somewhat silly and childlike. We did discuss the addition of invega orally with the anticipation of the in vague sustain a injection over the weekend if she tolerates the oral. Patient agreeable to that. Patient denies suicidality somewhat vague and silly about voices Review of Systems Except as stated in HPI: all other systems reviewed are Neg Mental Status Examination Appearance: Dirty, Disheveled Consciousness: Alert, Intoxicated Orientation: Person Motor Activity: Abnormal gait Speech: Pressured, Rapid Language: Neologism, Perseveration Memory: Impaired Mood: Angry Affect: Irritable Thought Process & Associations: Loose associations, Disorganized Thought Content: Bizarre thinking, Racing thoughts Hallucination Type: None Delusion Type: Bizarre Suicidal Ideation: No Suicidal Plan: No Suicidal Intention: No Homicidal Ideation: No Homicidal Plan: No Homicidal Intention: No Insight: Poor Judgment: Poor Results Labs Date/Time Source Procedure Growth Status 09/14/17 18:30 Stool Stool Cryptosporidium Exam Pending Received 09/14/17 18:30 Stool Stool Giardia Antigen (KWAN) Pending Received 09/09/17 11:20 Urine Catheterized Urine Urine Culture - Final Klebsiella Pneumoniae Complete Vitals/IOs Vital Signs Date Time Temp Pulse Resp B/P (MAP) Pulse Ox O2 Delivery O2 Flow Rate FiO2 09/15/17 06:33 97.6 68 16 112/77 (89) 99 Intake and Output 09/15/17 09/15/17 09/16/17 08:00 16:00 00:00 Intake Total 240 ml Balance 240 ml Assessment & Plan Problem List: (1) Schizoaffective disorder, bipolar type ICD Codes: F25.0 - Schizoaffective disorder, bipolar type Status: Chronic Assessment & Plan Estimated LOS: days patient continues somewhat psychotic intense labile. She medication adjustments discussed with patient. And further lab studies ordered to assess her stool Justification for Cont. Inpt. Discipline patient with decompensated placed in a lower level of care Discharge Planning Hopefully to return home with family Tim Ca MD Sep 15, 2017 08:58
[2017-09-15] MEDS: POTASSIUM CHLORIDE 10 MEQ CAP PO SCH ×2 (09:00→20:55)
[2017-09-15] MEDS: FAMOTIDINE 20 MG TAB PO SCH ×2 (09:00→20:55)
[2017-09-15] MEDS: PALIPERIDONE ER 6 MG TAB PO SCH ×2 (09:00→09:57)
[2017-09-15] MEDS: THIOTHIXENE 5 MG CAP PO SCH ×2 (09:57→20:54)
[2017-09-15] MEDS: METOPROLOL TARTRATE 25 MG TAB PO SCH ×2 (09:57→20:55)
[2017-09-15] MEDS: DIVALPROEX SODIUM E.R. 250 MG TAB PO SCH (09:57)
[2017-09-15] MEDS: RIVAROXABAN 20 MG TAB PO SCH (09:57)
[2017-09-15 10:25] LABS: AUTOMATED NEUTROPHIL # 2.2 TH/MM3 (1.8-7.7); BASOPHIL % 0.3 % (0.0-2.0); EOSINOPHIL # 0.1 TH/MM3 (0-0.4); EOSINOPHIL % 1.5 % (0.0-4.0); HEMATOCRIT 31.3 % (35.0-46.0); HEMOGLOBIN 10.8 GM/DL (11.6-15.3); LYMPH % 30.2 % (9.0-44.0); LYMPHOCYTE # 1.2 TH/MM3 (1.0-4.8); MEAN CELL VOLUME 84.7 FL (80.0-100.0); MEAN CORPUSCULAR HEMOGLOBIN 29.2 PG (27.0-34.0); MEAN CORPUSCULAR HGB CONC 34.5 % (32.0-36.0); MEAN PLATELET VOLUME 9.5 FL (7.0-11.0); MONO % 11.6 % (0.0-8.0); MONOCYTE # 0.4 TH/MM3 (0-0.9); NEUT % 56.4 % (16.0-70.0); PLATELET COUNT 143 TH/MM3 (150-450); RED CELL DISTRIBUTION WIDTH 14.8 % (11.6-17.2); WHITE BLOOD COUNT 3.9 TH/MM3 (4.0-11.0)
[2017-09-15 10:47] LABS: CALCIUM 7.5 MG/DL (8.5-10.1); CREATININE 0.59 MG/DL (0.50-1.00)
[2017-09-15] MEDS ORDERED: ONDANSETRON HCL 4 MG/2 ML VIAL IV PUSH PRN (12:00)
[2017-09-15] MEDS: 1/2 NS + KCL 20 MEQ INJ 1,000 ML IV SCH ×2 (12:00→21:06)
[2017-09-15] MEDS ORDERED: POTASSIUM CHLOR 20 MEQ PREMIX 100 ML IV SCH (12:00)
--- NOTE | 2017-09-15 12:03 | HHI.PR ---
Subjective Remarks Potassium 2.7 this am, Cont w/ loose stools. Objective Vital Signs Date Time Temp Pulse Resp B/P (MAP) Pulse Ox O2 Delivery O2 Flow Rate FiO2 09/15/17 06:33 97.6 68 16 112/77 (89) 99 I/O 09/14/17 09/14/17 09/14/17 09/15/17 09/15/17 09/15/17 07:00 15:00 23:00 07:00 15:00 23:00 Intake Total 630 ml 240 ml 0 ml 240 ml Balance 630 ml 240 ml 0 ml 240 ml Intake Oral 480 ml 240 ml 0 ml 240 ml IV Total 150 ml # Voids 1 2 2 # Bowel Movements 5 1 Result Diagram: 09/15/17 0950 09/15/17 0950 Objective Remarks GENERAL: This is a well-nourished, well-developed patient, in no apparent distress.but very pleasantly confused SKIN: No rashes, ecchymoses or lesions. Cool and dry. HEAD: Atraumatic. Normocephalic. No temporal or scalp tenderness. EYES: Pupils equal round and reactive. Extraocular motions intact. No scleral icterus. No injection or drainage. ENT: Nose without bleeding, purulent drainage or septal hematoma. Throat without erythema, tonsillar hypertrophy or exudate. Uvula midline. Airway patent. NECK: Trachea midline. No JVD or lymphadenopathy. Supple, nontender, no meningeal signs. CARDIOVASCULAR: Regular rate and rhythm without murmurs, gallops, or rubs. RESPIRATORY: Clear to auscultation. Breath sounds equal bilaterally. No wheezes , rales, or rhonchi. GASTROINTESTINAL: Abdomen soft, non-tender, nondistended. No hepato-splenomegaly , or palpable masses. No guarding.hyperactive bowel sounds MUSCULOSKELETAL: Extremities without clubbing, cyanosis, or edema. No joint tenderness, effusion, or edema noted. No calf tenderness. Negative Homans sign bilaterally. NEUROLOGICAL: Awake Cranial nerves II through XII intact. Motor and sensory grossly within normal limits. Five out of 5 muscle strength in all muscle groups. Normal speech. Medications and IVs Current Medications Medications (Trade) Dose Ordered Sig/Valentina Route Start Time Stop Time Status Last Admin (Depakote Er) 1,250 mg DAILY PO 09/09/17 11:30 09/15/17 09:57 (Lopressor) 12.5 mg Q12HR PO 09/09/17 21:00 09/15/17 09:57 (Xarelto) 20 mg DAILY PO 09/10/17 09:00 09/15/17 09:57 (Ativan) 1 mg Q6H PRN PO 09/09/17 11:30 Future Hold (Ativan Inj) 1 mg Q6H PRN IM 09/09/17 11:30 Future Hold (Ativan) 0.5 mg Q12H PRN PO 09/09/17 11:30 Future Hold (Ativan Inj) 0.5 mg Q12H PRN IM 09/09/17 11:30 Future Hold (Tylenol) 650 mg Q4H PRN PO 09/09/17 11:30 09/14/17 09:50 (Milk Of Magnesia Liq) 30 ml DAILY PRN PO 09/09/17 11:30 (Mag-Al Plus Susp Liq) 30 ml Q6H PRN PO 09/09/17 11:30 (Atarax) 50 mg Q6H PRN PO 09/11/17 17:30 09/14/17 12:36 (Navane) 15 mg BID PO 09/12/17 21:00 09/15/17 09:57 (Pepcid) 20 mg BID PO 09/13/17 21:00 09/15/17 09:00 (Flagyl) 500 mg Q6HR PO 09/13/17 18:00 09/23/17 12:01 09/14/17 17:38 (KCl) 10 meq BID PO 09/14/17 21:00 09/15/17 09:00 (Invega Er) 6 mg DAILY PO 09/15/17 08:00 09/15/17 09:00 Potassium Chloride 100 ml @ 50 mls/hr Q2H IV 09/15/17 12:00 09/15/17 15:59 UNV (Zofran Inj) 4 mg Q6HR PRN IV PUSH 09/15/17 12:00 UNV (Questran 4 Gm Pkt) 4 gm Q12HR PO 09/15/17 21:00 UNV Assessment and Plan Problem List: (1) Diarrhea ICD Codes: R19.7 - Diarrhea, unspecified Plan: C diff pending, Refusing Flagyl. Questran added (2) Hypokalemia ICD Codes: E87.6 - Hypokalemia Plan: Potassium 2.7 this am r/t diarrhea. IV replacement, telemetry added Fluid changed to 1/2ns w/ 20 k (3) Bipolar affective disorder, current episode manic with psychotic symptoms ICD Codes: F31.2 - Bipolar affective disorder, current episode manic with psychotic symptoms Status: Chronic Plan: Followed By Psych Lety Mendoza Sep 15, 2017 12:02
[2017-09-15] MEDS ORDERED: POTASSIUM CHLORIDE 20 MEQ CONTROLLED RELEASE TAB PO ONE (14:45)
[2017-09-15 19:43] LABS: BICARBONATE 21.6 MEQ/L (21.0-32.0); CALCIUM 8.2 MG/DL (8.5-10.1); CREATININE 0.76 MG/DL (0.50-1.00)
[2017-09-15] MEDS: CHOLESTYRAMINE 4 GM PACKET PO SCH (21:00)
[2017-09-16 05:32] VITALS: BP 118/64; PULSE 64; RESP 16; TEMP 97.7; O2SAT 97
[2017-09-16] MEDS: metroNIDAZOLE 500 MG TAB PO SCH ×4 (05:48→22:41)
[2017-09-16 05:56] LABS: AUTOMATED NEUTROPHIL # 1.7 TH/MM3 (1.8-7.7); BASOPHIL % 0.4 % (0.0-2.0); EOSINOPHIL # 0.1 TH/MM3 (0-0.4); EOSINOPHIL % 2.8 % (0.0-4.0); HEMATOCRIT 30.4 % (35.0-46.0); HEMOGLOBIN 10.4 GM/DL (11.6-15.3); LYMPH % 40.9 % (9.0-44.0); LYMPHOCYTE # 1.6 TH/MM3 (1.0-4.8); MEAN CELL VOLUME 85.5 FL (80.0-100.0); MEAN CORPUSCULAR HEMOGLOBIN 29.2 PG (27.0-34.0); MEAN CORPUSCULAR HGB CONC 34.1 % (32.0-36.0); MONO % 11.7 % (0.0-8.0); MONOCYTE # 0.5 TH/MM3 (0-0.9); NEUT % 44.2 % (16.0-70.0); PLATELET COUNT 156 TH/MM3 (150-450); RED BLOOD COUNT 3.56 MIL/MM3 (4.00-5.30); WHITE BLOOD COUNT 3.8 TH/MM3 (4.0-11.0)
[2017-09-16 06:21] LABS: CALCIUM 7.7 MG/DL (8.5-10.1); CREATININE 0.65 MG/DL (0.50-1.00)
[2017-09-16] MEDS: 1/2 NS + KCL 20 MEQ INJ 1,000 ML IV SCH ×2 (08:00→17:25)
--- NOTE | 2017-09-16 08:19 | HHI.PYPN ---
Subjective Remarks Patient seen in her room with nurse Tonya, chart review, patient discussed with nurse, it appears patient still is positive for norovirus, patient coping with this. Patient tolerating the in vague about orally. If she continues to do well will consider adding in Andres sustain an Monday 09/18 Review of Systems Except as stated in HPI: all other systems reviewed are Neg Mental Status Examination Appearance: Dirty, Disheveled Consciousness: Alert, Intoxicated Orientation: Person Motor Activity: Abnormal gait Speech: Pressured, Rapid Language: Neologism, Perseveration Memory: Impaired Mood: Angry Affect: Irritable Thought Process & Associations: Loose associations, Disorganized Thought Content: Bizarre thinking, Racing thoughts Hallucination Type: None Delusion Type: Bizarre Suicidal Ideation: No Suicidal Plan: No Suicidal Intention: No Homicidal Ideation: No Homicidal Plan: No Homicidal Intention: No Insight: Poor Judgment: Poor Results Labs Test 09/15/17 09:50 09/15/17 18:45 09/16/17 05:20 White Blood Count 3.9 TH/MM3 3.8 TH/MM3 Red Blood Count 3.70 MIL/MM3 3.56 MIL/MM3 Hemoglobin 10.8 GM/DL 10.4 GM/DL Hematocrit 31.3 % 30.4 % Mean Corpuscular Volume 84.7 FL 85.5 FL Mean Corpuscular Hemoglobin 29.2 PG 29.2 PG Mean Corpuscular Hemoglobin Concent 34.5 % 34.1 % Red Cell Distribution Width 14.8 % 15.0 % Platelet Count 143 TH/MM3 156 TH/MM3 Mean Platelet Volume 9.5 FL 10.0 FL Neutrophils (%) (Auto) 56.4 % 44.2 % Lymphocytes (%) (Auto) 30.2 % 40.9 % Monocytes (%) (Auto) 11.6 % 11.7 % Eosinophils (%) (Auto) 1.5 % 2.8 % Basophils (%) (Auto) 0.3 % 0.4 % Neutrophils # (Auto) 2.2 TH/MM3 1.7 TH/MM3 Lymphocytes # (Auto) 1.2 TH/MM3 1.6 TH/MM3 Monocytes # (Auto) 0.4 TH/MM3 0.5 TH/MM3 Eosinophils # (Auto) 0.1 TH/MM3 0.1 TH/MM3 Basophils # (Auto) 0.0 TH/MM3 0.0 TH/MM3 CBC Comment DIFF FINAL DIFF FINAL Differential Comment Blood Urea Nitrogen 6 MG/DL 4 MG/DL 3 MG/DL Creatinine 0.59 MG/DL 0.76 MG/DL 0.65 MG/DL Random Glucose 96 MG/DL 137 MG/DL 115 MG/DL Calcium Level 7.5 MG/DL 8.2 MG/DL 7.7 MG/DL Sodium Level 142 MEQ/L 142 MEQ/L 143 MEQ/L Potassium Level 2.7 MEQ/L 3.1 MEQ/L 3.2 MEQ/L Chloride Level 109 MEQ/L 109 MEQ/L 111 MEQ/L Carbon Dioxide Level 24.0 MEQ/L 21.6 MEQ/L 24.0 MEQ/L Anion Gap 9 MEQ/L 11 MEQ/L 8 MEQ/L Estimat Glomerular Filtration Rate 101 ML/MIN 76 ML/MIN 91 ML/MIN Date/Time Source Procedure Growth Status 09/14/17 18:30 Stool Stool - Final Norovirus Complete 09/09/17 11:20 Urine Catheterized Urine Urine Culture - Final Klebsiella Pneumoniae Complete Vitals/IOs Vital Signs Date Time Temp Pulse Resp B/P (MAP) Pulse Ox O2 Delivery O2 Flow Rate FiO2 09/16/17 05:32 97.7 64 16 118/64 (82) 97 Intake and Output 09/16/17 09/16/17 09/17/17 08:00 16:00 00:00 Intake Total 480 ml Balance 480 ml Assessment & Plan Problem List: (1) Schizoaffective disorder, bipolar type ICD Codes: F25.0 - Schizoaffective disorder, bipolar type Status: Chronic Assessment & Plan Estimated LOS: days patient continue somewhat silly and superficial, but no behavioral problems she is calm and cooperative Justification for Cont. Inpt. At this time patient will decompensate if placed in the lower level of care Discharge Planning Possible return home with family Tim Ca MD Sep 16, 2017 08:19
[2017-09-16] MEDS: FAMOTIDINE 20 MG TAB PO SCH ×2 (09:00→20:20)
[2017-09-16] MEDS: METOPROLOL TARTRATE 25 MG TAB PO SCH ×2 (09:00→20:20)
[2017-09-16] MEDS: PALIPERIDONE ER 6 MG TAB PO SCH (09:00)
[2017-09-16] MEDS: CHOLESTYRAMINE 4 GM PACKET PO SCH ×2 (09:00→20:19)
[2017-09-16] MEDS: RIVAROXABAN 20 MG TAB PO SCH (09:00)
[2017-09-16] MEDS: DIVALPROEX SODIUM E.R. 250 MG TAB PO SCH (09:00)
[2017-09-16] MEDS: POTASSIUM CHLORIDE 10 MEQ CAP PO SCH ×2 (09:00→20:20)
[2017-09-16] MEDS: THIOTHIXENE 5 MG CAP PO SCH ×2 (09:00→20:20)
--- NOTE | 2017-09-16 11:50 | HHI.PR ---
Subjective Remarks Remains confused and laughing constantly Objective Vital Signs Date Time Temp Pulse Resp B/P (MAP) Pulse Ox O2 Delivery O2 Flow Rate FiO2 09/16/17 05:32 97.7 64 16 118/64 (82) 97 I/O 09/15/17 09/15/17 09/15/17 09/16/17 09/16/17 09/16/17 07:00 15:00 23:00 07:00 15:00 23:00 Intake Total 0 ml 1600 ml 2920 ml 240 ml 240 ml Balance 0 ml 1600 ml 2920 ml 240 ml 240 ml Intake Oral 0 ml 600 ml 2920 ml 240 ml 240 ml IV Total 1000 ml # Voids 2 1 2 # Bowel Movements 1 6 Result Diagram: 09/16/1751909/16/17 05 Objective Remarks HEENT - AT/NC Resp - CTA CV - RRR without rub or gallop Abd - soft and nontender MS - FROM without deformity Medications and IVs Current Medications Medications (Trade) Dose Ordered Sig/Valentina Route Start Time Stop Time Status Last Admin (Depakote Er) 1,250 mg DAILY PO 09/09/17 11:30 09/16/17 09:00 (Lopressor) 12.5 mg Q12HR PO 09/09/17 21:00 09/16/17 09:00 (Xarelto) 20 mg DAILY PO 09/10/17 09:00 09/16/17 09:00 (Ativan) 1 mg Q6H PRN PO 09/09/17 11:30 Future Hold (Ativan Inj) 1 mg Q6H PRN IM 09/09/17 11:30 Future Hold (Ativan) 0.5 mg Q12H PRN PO 09/09/17 11:30 Future Hold (Ativan Inj) 0.5 mg Q12H PRN IM 09/09/17 11:30 Future Hold (Tylenol) 650 mg Q4H PRN PO 09/09/17 11:30 09/14/17 09:50 (Milk Of Magnesia Liq) 30 ml DAILY PRN PO 09/09/17 11:30 (Mag-Al Plus Susp Liq) 30 ml Q6H PRN PO 09/09/17 11:30 (Atarax) 50 mg Q6H PRN PO 09/11/17 17:30 09/14/17 12:36 (Navane) 15 mg BID PO 09/12/17 21:00 09/16/17 09:00 (Pepcid) 20 mg BID PO 09/13/17 21:00 09/16/17 09:00 (Flagyl) 500 mg Q6HR PO 09/13/17 18:00 09/23/17 12:01 09/16/17 05:48 (KCl) 10 meq BID PO 09/14/17 21:00 09/16/17 09:00 (Invega Er) 6 mg DAILY PO 09/15/17 08:00 09/16/17 09:00 (Zofran Inj) 4 mg Q6HR PRN IV PUSH 09/15/17 12:00 09/15/17 13:27 (Questran 4 Gm Pkt) 4 gm Q12HR PO 09/15/17 21:00 09/16/17 09:00 Potassium Chloride/Sodium Chloride 1,000 ml @ 100 mls/hr Q10H IV 09/15/17 12:00 09/16/17 08:00 Assessment and Plan Problem List: (1) Bipolar affective, manic, severe ICD Codes: F31.13 - Bipolar disorder, current episode manic without psychotic features, severe Status: Acute Plan: Cont plan per Psych (2) Diarrhea ICD Codes: R19.7 - Diarrhea, unspecified Plan: C Dif is negative. Cont Questran (3) Hypokalemia ICD Codes: E87.6 - Hypokalemia Plan: Better at 3.2 today. Cont IV KCL Assessment and Plan Mala persists. Diarrhea persists but not C Dif and K rising. 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
[2017-09-16 13:13] LABS: BICARBONATE 24.5 MEQ/L (21.0-32.0); CALCIUM 8.1 MG/DL (8.5-10.1); CREATININE 0.7 MG/DL (0.50-1.00)
[2017-09-16 18:00] VITALS: BP 106/59; PULSE 70; RESP 17; TEMP 97.3; O2SAT 100
[2017-09-17] MEDS: 1/2 NS + KCL 20 MEQ INJ 1,000 ML IV SCH (04:00)
[2017-09-17] MEDS: metroNIDAZOLE 500 MG TAB PO SCH ×3 (05:51→18:00)
[2017-09-17 05:56] VITALS: BP 121/56; PULSE 67; RESP 17; TEMP 99; O2SAT 97
[2017-09-17 07:36] LABS: AUTOMATED NEUTROPHIL # 1.2 TH/MM3 (1.8-7.7); BASOPHIL % 0.5 % (0.0-2.0); EOSINOPHIL # 0.1 TH/MM3 (0-0.4); EOSINOPHIL % 3.9 % (0.0-4.0); HEMATOCRIT 32.9 % (35.0-46.0); LYMPHOCYTE # 1.4 TH/MM3 (1.0-4.8); MEAN CELL VOLUME 87.3 FL (80.0-100.0); MEAN CORPUSCULAR HEMOGLOBIN 29.1 PG (27.0-34.0); MEAN CORPUSCULAR HGB CONC 33.4 % (32.0-36.0); MEAN PLATELET VOLUME 9.8 FL (7.0-11.0); MONOCYTE # 0.4 TH/MM3 (0-0.9); NEUT % 37.6 % (16.0-70.0); PLATELET COUNT 144 TH/MM3 (150-450); RED BLOOD COUNT 3.77 MIL/MM3 (4.00-5.30); RED CELL DISTRIBUTION WIDTH 15.1 % (11.6-17.2); WHITE BLOOD COUNT 3.2 TH/MM3 (4.0-11.0)
[2017-09-17 07:49] LABS: BICARBONATE 20.5 MEQ/L (21.0-32.0); CREATININE 0.68 MG/DL (0.50-1.00)
--- NOTE | 2017-09-17 08:53 | HHI.PYPN ---
Subjective Remarks Patient seen in her room with nurse Yordy, chart reviewed, patient discussed with nurse. Patient compliant medication. Patient continues somewhat childlike intense and silly but overall no behavioral problems, it appears his stools are starting to firm up somewhat, and appetite is better. She does deny voices at the present time and denies suicidality. We'll schedule in Tobin sustenna to 34 mg IM for tomorrow and then every 28 days Review of Systems Except as stated in HPI: all other systems reviewed are Neg Mental Status Examination Appearance: Dirty, Disheveled Consciousness: Alert, Intoxicated Orientation: Person Motor Activity: Abnormal gait Speech: Pressured, Rapid Language: Neologism, Perseveration Memory: Impaired Mood: Angry Affect: Irritable Thought Process & Associations: Loose associations, Disorganized Thought Content: Bizarre thinking, Racing thoughts Hallucination Type: None Delusion Type: Bizarre Suicidal Ideation: No Suicidal Plan: No Suicidal Intention: No Homicidal Ideation: No Homicidal Plan: No Homicidal Intention: No Insight: Poor Judgment: Poor Results Labs Test 09/16/17 12:11 09/17/17 06:19 Blood Urea Nitrogen 3 MG/DL 4 MG/DL Creatinine 0.70 MG/DL 0.68 MG/DL Random Glucose 141 MG/DL 108 MG/DL Calcium Level 8.1 MG/DL 8.0 MG/DL Sodium Level 141 MEQ/L 143 MEQ/L Potassium Level 3.0 MEQ/L 3.5 MEQ/L Chloride Level 109 MEQ/L 114 MEQ/L Carbon Dioxide Level 24.5 MEQ/L 20.5 MEQ/L Anion Gap 8 MEQ/L 9 MEQ/L Estimat Glomerular Filtration Rate 83 ML/MIN 86 ML/MIN White Blood Count 3.2 TH/MM3 Red Blood Count 3.77 MIL/MM3 Hemoglobin 11.0 GM/DL Hematocrit 32.9 % Mean Corpuscular Volume 87.3 FL Mean Corpuscular Hemoglobin 29.1 PG Mean Corpuscular Hemoglobin Concent 33.4 % Red Cell Distribution Width 15.1 % Platelet Count 144 TH/MM3 Mean Platelet Volume 9.8 FL Neutrophils (%) (Auto) 37.6 % Lymphocytes (%) (Auto) 44.0 % Monocytes (%) (Auto) 14.0 % Eosinophils (%) (Auto) 3.9 % Basophils (%) (Auto) 0.5 % Neutrophils # (Auto) 1.2 TH/MM3 Lymphocytes # (Auto) 1.4 TH/MM3 Monocytes # (Auto) 0.4 TH/MM3 Eosinophils # (Auto) 0.1 TH/MM3 Basophils # (Auto) 0.0 TH/MM3 CBC Comment DIFF FINAL Differential Comment Hematology Comments Date/Time Source Procedure Growth Status 09/14/17 18:30 Stool Stool - Final Norovirus Complete 09/09/17 11:20 Urine Catheterized Urine Urine Culture - Final Klebsiella Pneumoniae Complete Vitals/IOs Vital Signs Date Time Temp Pulse Resp B/P (MAP) Pulse Ox O2 Delivery O2 Flow Rate FiO2 09/17/17 05:56 99.0 67 17 121/56 (77) 97 Intake and Output 09/17/17 09/17/17 09/18/17 08:00 16:00 00:00 Intake Total 360 ml Balance 360 ml Assessment & Plan Problem List: (1) Schizoaffective disorder, bipolar type ICD Codes: F25.0 - Schizoaffective disorder, bipolar type Status: Chronic Assessment & Plan Estimated LOS: days patient showing some mild improvement in behavior and affect for now continue treatment she medication adjustments above Justification for Cont. Inpt. At this time patient decompensated placed in a lower level of care Discharge Planning Return home with family Tim Ca MD Sep 17, 2017 08:53
[2017-09-17] MEDS ORDERED: ALUMINUM/MAGNESIUM/SIMETH 30 ML CUP PO PRN (10:45)
--- NOTE | 2017-09-17 10:49 | HHI.PR ---
Subjective Remarks Less frenzied today. Objective Vital Signs Date Time Temp Pulse Resp B/P (MAP) Pulse Ox O2 Delivery O2 Flow Rate FiO2 09/17/17 05:56 99.0 67 17 121/56 (77) 97 09/16/17 18:00 97.3 70 17 106/59 (75) 100 I/O 09/16/17 09/16/17 09/16/17 09/17/17 09/17/17 09/17/17 07:00 15:00 23:00 07:00 15:00 23:00 Intake Total 240 ml 1200 ml 2040 ml 360 ml Balance 240 ml 1200 ml 2040 ml 360 ml Intake Oral 240 ml 1200 ml 1540 ml 360 ml IV Total 500 ml # Voids 2 1 2 # Bowel Movements 6 2 1 Result Diagram: 09/17/1761809/17/17618 Objective Remarks HEENT - AT/NC Resp - CTA CV - RRR without rub or gallop Abd - soft and nontender MS - FROM without deformity Medications and IVs Current Medications Medications (Trade) Dose Ordered Sig/Valentina Route Start Time Stop Time Status Last Admin (Depakote Er) 1,250 mg DAILY PO 09/09/17 11:30 09/16/17 09:00 (Lopressor) 12.5 mg Q12HR PO 09/09/17 21:00 09/16/17 20:20 (Xarelto) 20 mg DAILY PO 09/10/17 09:00 09/16/17 09:00 (Ativan) 1 mg Q6H PRN PO 09/09/17 11:30 Future Hold (Ativan Inj) 1 mg Q6H PRN IM 09/09/17 11:30 Future Hold (Ativan) 0.5 mg Q12H PRN PO 09/09/17 11:30 Future Hold (Ativan Inj) 0.5 mg Q12H PRN IM 09/09/17 11:30 Future Hold (Tylenol) 650 mg Q4H PRN PO 09/09/17 11:30 09/14/17 09:50 (Milk Of Magnesia Liq) 30 ml DAILY PRN PO 09/09/17 11:30 (Mag-Al Plus Susp Liq) 30 ml Q6H PRN PO 09/09/17 11:30 (Atarax) 50 mg Q6H PRN PO 09/11/17 17:30 09/14/17 12:36 (Navane) 15 mg BID PO 09/12/17 21:00 09/16/17 20:20 (Pepcid) 20 mg BID PO 09/13/17 21:00 09/16/17 20:20 (Flagyl) 500 mg Q6HR PO 09/13/17 18:00 09/23/17 12:01 09/17/17 05:51 (KCl) 10 meq BID PO 09/14/17 21:00 09/16/17 20:20 (Invega Er) 6 mg DAILY PO 09/15/17 08:00 09/16/17 09:00 (Zofran Inj) 4 mg Q6HR PRN IV PUSH 09/15/17 12:00 09/15/17 13:27 (Questran 4 Gm Pkt) 4 gm Q12HR PO 09/15/17 21:00 09/16/17 20:19 Potassium Chloride/Sodium Chloride 1,000 ml @ 100 mls/hr Q10H IV 09/15/17 12:00 09/17/17 04:00 (Invega Sustenna Inj) 234 mg Q28D IM 09/18/17 10:00 Assessment and Plan Problem List: (1) Bipolar affective, manic, severe ICD Codes: F31.13 - Bipolar disorder, current episode manic without psychotic features, severe Status: Acute Plan: Cont plan per Psych (2) Diarrhea ICD Codes: R19.7 - Diarrhea, unspecified Plan: C Dif is negative. Cont Questran and Flagyl. Added Mylanta per patient request. (3) Hypokalemia ICD Codes: E87.6 - Hypokalemia Plan: Better at 3.5 today. Cont PO KCL and D/C IV KCL and IVF Assessment and Plan Mala persists. Diarrhea persists but not C Dif and K rising. Discussed Condition With patient Discharge Planning Home vs SNF Problem Qualifiers (1) Diarrhea: Qualified Codes: K59.1 - Functional diarrhea Robby Arana Sep 17, 2017 10:49
[2017-09-17] MEDS: THIOTHIXENE 5 MG CAP PO SCH ×2 (11:01→22:07)
[2017-09-17] MEDS: METOPROLOL TARTRATE 25 MG TAB PO SCH ×3 (11:01→22:06)
[2017-09-17] MEDS: DIVALPROEX SODIUM E.R. 250 MG TAB PO SCH (11:02)
[2017-09-17] MEDS: POTASSIUM CHLORIDE 10 MEQ CAP PO SCH ×2 (11:02→22:05)
[2017-09-17] MEDS: CHOLESTYRAMINE 4 GM PACKET PO SCH ×2 (11:03→22:06)
[2017-09-17] MEDS: RIVAROXABAN 20 MG TAB PO SCH (11:03)
[2017-09-17] MEDS: PALIPERIDONE ER 6 MG TAB PO SCH (11:03)
[2017-09-17] MEDS: FAMOTIDINE 20 MG TAB PO SCH ×2 (11:03→22:06)
[2017-09-17 12:39] LABS: AUTOMATED NEUTROPHIL # 2.7 TH/MM3 (1.8-7.7); BASOPHIL % 0.7 % (0.0-2.0); EOSINOPHIL # 0.1 TH/MM3 (0-0.4); EOSINOPHIL % 1.7 % (0.0-4.0); HEMATOCRIT 32.3 % (35.0-46.0); LYMPH % 25.8 % (9.0-44.0); LYMPHOCYTE # 1.2 TH/MM3 (1.0-4.8); MEAN CELL VOLUME 85.1 FL (80.0-100.0); MEAN PLATELET VOLUME 8.8 FL (7.0-11.0); MONO % 11.2 % (0.0-8.0); MONOCYTE # 0.5 TH/MM3 (0-0.9); NEUT % 60.6 % (16.0-70.0); PLATELET COUNT 178 TH/MM3 (150-450); RED CELL DISTRIBUTION WIDTH 15.1 % (11.6-17.2); WHITE BLOOD COUNT 4.5 TH/MM3 (4.0-11.0)
[2017-09-17 13:07] LABS: ALBUMIN 2.8 GM/DL (3.4-5.0); ALKALINE PHOSPHATASE 57 U/L (45-117); ALT (GPT) 17 U/L (10-53); AST (GOT) 19 U/L (15-37); BICARBONATE 22.4 MEQ/L (21.0-32.0); BLOOD UREA NITROGEN 4 MG/DL (7-18); CALCIUM 8.6 MG/DL (8.5-10.1); CHLORIDE 107 MEQ/L (98-107); CREATININE 0.91 MG/DL (0.50-1.00); GLOMERULAR FILTRATION RATE 61 ML/MIN (>89); GLUCOSE,RANDOM 178 MG/DL (74-106); SODIUM (NA) 139 MEQ/L (136-145); TOTAL BILIRUBIN ADULT 0.3 MG/DL (0.2-1.0); TOTAL PROTEIN 6.8 GM/DL (6.4-8.2)
[2017-09-17 15:10] VITALS: BP 100/59; PULSE 61; RESP 16; TEMP 99.1; O2SAT 98
[2017-09-18 05:07] VITALS: BP 128/63; PULSE 73; RESP 16; TEMP 97.5; O2SAT 98
[2017-09-18] MEDS: metroNIDAZOLE 500 MG TAB PO SCH ×4 (06:01→18:19)
[2017-09-18] MEDS: CHOLESTYRAMINE 4 GM PACKET PO SCH ×2 (09:00→21:11)
--- NOTE | 2017-09-18 09:09 | HHI.PR ---
Subjective Remarks No loose stool today, voices she needs something for hemorrhoids. Objective Vital Signs Date Time Temp Pulse Resp B/P (MAP) Pulse Ox O2 Delivery O2 Flow Rate FiO2 09/18/17 05:07 97.5 73 16 128/63 (84) 98 09/17/17 15:10 99.1 61 16 100/59 (73) 98 I/O 09/17/17 09/17/17 09/17/17 09/18/17 09/18/17 09/18/17 07:00 15:00 23:00 07:00 15:00 23:00 Intake Total 1360 ml 240 ml 480 ml 480 ml Balance 1360 ml 240 ml 480 ml 480 ml Intake Oral 360 ml 240 ml 480 ml 480 ml IV Total 1000 ml # Voids 2 4 # Bowel Movements 1 2 Result Diagram: 09/17/17 1229 09/17/17 1229 Other Results Microbiology Date/Time Source Procedure Growth Status 09/14/17 18:30 Stool Stool - Final Norovirus Complete 09/09/17 11:20 Urine Catheterized Urine Urine Culture - Final Klebsiella Pneumoniae Complete Objective Remarks GENERAL: This is a well-nourished, well-developed patient, in no apparent distress.but very pleasantly confused SKIN: No rashes, ecchymoses or lesions. Cool and dry. HEAD: Atraumatic. Normocephalic. No temporal or scalp tenderness. EYES: Pupils equal round and reactive. Extraocular motions intact. No scleral icterus. No injection or drainage. ENT: Nose without bleeding, purulent drainage or septal hematoma. Throat without erythema, tonsillar hypertrophy or exudate. Uvula midline. Airway patent. NECK: Trachea midline. No JVD or lymphadenopathy. Supple, nontender, no meningeal signs. CARDIOVASCULAR: Regular rate and rhythm without murmurs, gallops, or rubs. RESPIRATORY: Clear to auscultation. Breath sounds equal bilaterally. No wheezes , rales, or rhonchi. GASTROINTESTINAL: Abdomen soft, non-tender, nondistended. No hepato-splenomegaly , or palpable masses. No guarding.hyperactive bowel sounds MUSCULOSKELETAL: Extremities without clubbing, cyanosis, or edema. No joint tenderness, effusion, or edema noted. No calf tenderness. Negative Homans sign bilaterally. NEUROLOGICAL: Awake Cranial nerves II through XII intact. Motor and sensory grossly within normal limits. Five out of 5 muscle strength in all muscle groups. Normal speech. Medications and IVs Current Medications Medications (Trade) Dose Ordered Sig/Valentina Route Start Time Stop Time Status Last Admin (Depakote Er) 1,250 mg DAILY PO 09/09/17 11:30 09/17/17 11:02 (Lopressor) 12.5 mg Q12HR PO 09/09/17 21:00 09/17/17 11:01 (Xarelto) 20 mg DAILY PO 09/10/17 09:00 09/17/17 11:03 (Ativan) 1 mg Q6H PRN PO 09/09/17 11:30 Future Hold (Ativan Inj) 1 mg Q6H PRN IM 09/09/17 11:30 Future Hold (Ativan) 0.5 mg Q12H PRN PO 09/09/17 11:30 Future Hold (Ativan Inj) 0.5 mg Q12H PRN IM 09/09/17 11:30 Future Hold (Tylenol) 650 mg Q4H PRN PO 09/09/17 11:30 09/14/17 09:50 (Milk Of Magnesia Liq) 30 ml DAILY PRN PO 09/09/17 11:30 (Mag-Al Plus Susp Liq) 30 ml Q6H PRN PO 09/09/17 11:30 (Atarax) 50 mg Q6H PRN PO 09/11/17 17:30 09/14/17 12:36 (Navane) 15 mg BID PO 09/12/17 21:00 09/17/17 22:07 (Pepcid) 20 mg BID PO 09/13/17 21:00 09/17/17 22:06 (Flagyl) 500 mg Q6HR PO 09/13/17 18:00 09/23/17 12:01 09/18/17 06:01 (KCl) 10 meq BID PO 09/14/17 21:00 09/17/17 22:05 (Invega Er) 6 mg DAILY PO 09/15/17 08:00 09/17/17 11:03 (Zofran Inj) 4 mg Q6HR PRN IV PUSH 09/15/17 12:00 09/15/17 13:27 (Questran 4 Gm Pkt) 4 gm Q12HR PO 3/9/18 21:00 09/17/17 22:06 (Invega Sustenna Inj) 234 mg Q28D IM 09/18/17 10:00 (Mag-Al Plus Susp Liq) 30 ml Q6H PRN PO 09/17/17 10:45 Assessment and Plan Problem List: (1) Bipolar affective, manic, severe ICD Codes: F31.13 - Bipolar disorder, current episode manic without psychotic features, severe Status: Acute Plan: followed by Psych (2) Diarrhea ICD Codes: R19.7 - Diarrhea, unspecified Plan: Stools have decreased Positive for Norovirus Questran added (3) Hypokalemia ICD Codes: E87.6 - Hypokalemia Plan: Resolved Problem Qualifiers (1) Diarrhea: Qualified Codes: K59.1 - Functional diarrhea Lety Mendoza Sep 18, 2017 09:09
--- NOTE | 2017-09-18 09:56 | HHI.PYPN ---
Subjective Remarks Patient seen in her room with counselor Bettina and nurse Deni, chart reviewed, patient discussed with nurse. Patient scheduled for her invega sustenna injection today. She continues somewhat silly and childlike. Though states she is willing to return home with her daughter. We need to contact patient's daughter to discuss methods of keeping peace a house to prevent further recidivism. Patient states her stools are slowly firming up Review of Systems Except as stated in HPI: all other systems reviewed are Neg Mental Status Examination Appearance: Dirty, Disheveled Consciousness: Alert, Intoxicated Orientation: Person Motor Activity: Abnormal gait Speech: Pressured, Rapid Language: Neologism, Perseveration Memory: Impaired Mood: Angry Affect: Irritable Thought Process & Associations: Loose associations, Disorganized Thought Content: Bizarre thinking, Racing thoughts Hallucination Type: None Delusion Type: Bizarre Suicidal Ideation: No Suicidal Plan: No Suicidal Intention: No Homicidal Ideation: No Homicidal Plan: No Homicidal Intention: No Insight: Poor Judgment: Poor Results Labs Test 09/17/17 12:29 White Blood Count 4.5 TH/MM3 Red Blood Count 3.80 MIL/MM3 Hemoglobin 11.0 GM/DL Hematocrit 32.3 % Mean Corpuscular Volume 85.1 FL Mean Corpuscular Hemoglobin 29.0 PG Mean Corpuscular Hemoglobin Concent 34.0 % Red Cell Distribution Width 15.1 % Platelet Count 178 TH/MM3 Mean Platelet Volume 8.8 FL Neutrophils (%) (Auto) 60.6 % Lymphocytes (%) (Auto) 25.8 % Monocytes (%) (Auto) 11.2 % Eosinophils (%) (Auto) 1.7 % Basophils (%) (Auto) 0.7 % Neutrophils # (Auto) 2.7 TH/MM3 Lymphocytes # (Auto) 1.2 TH/MM3 Monocytes # (Auto) 0.5 TH/MM3 Eosinophils # (Auto) 0.1 TH/MM3 Basophils # (Auto) 0.0 TH/MM3 CBC Comment DIFF FINAL Differential Comment Blood Urea Nitrogen 4 MG/DL Creatinine 0.91 MG/DL Random Glucose 178 MG/DL Total Protein 6.8 GM/DL Albumin 2.8 GM/DL Calcium Level 8.6 MG/DL Alkaline Phosphatase 57 U/L Aspartate Amino Transf (AST/SGOT) 19 U/L Alanine Aminotransferase (ALT/SGPT) 17 U/L Total Bilirubin 0.3 MG/DL Sodium Level 139 MEQ/L Potassium Level 3.6 MEQ/L Chloride Level 107 MEQ/L Carbon Dioxide Level 22.4 MEQ/L Anion Gap 10 MEQ/L Estimat Glomerular Filtration Rate 61 ML/MIN Date/Time Source Procedure Growth Status 09/14/17 18:30 Stool Stool - Final Norovirus Complete 09/09/17 11:20 Urine Catheterized Urine Urine Culture - Final Klebsiella Pneumoniae Complete Vitals/IOs Vital Signs Date Time Temp Pulse Resp B/P (MAP) Pulse Ox O2 Delivery O2 Flow Rate FiO2 09/18/17 05:07 97.5 73 16 128/63 (84) 98 Intake and Output 09/18/17 09/18/17 09/18/17 07:59 15:59 23:59 Intake Total 480 ml Balance 480 ml Assessment & Plan Problem List: (1) Schizoaffective disorder, bipolar type ICD Codes: F25.0 - Schizoaffective disorder, bipolar type Status: Chronic Assessment & Plan Estimated LOS: days patient somewhat calmer today focused scheduled today for her long-acting injection. Need to discuss with patient's daughter means of keeping peace to 22 of them glomerular home together Justification for Cont. Inpt. At this time patient decompensated placed in a lower level of care Discharge Planning Hopefully to return home Tim Ca MD Sep 18, 2017 09:56
[2017-09-18] MEDS ORDERED: PALIPERIDONE PALMITATE 234 MG/1.5 ML SYRINGE IM SCH (10:00)
[2017-09-18] MEDS: POTASSIUM CHLORIDE 10 MEQ CAP PO SCH ×2 (11:14→21:11)
[2017-09-18] MEDS: DIVALPROEX SODIUM E.R. 250 MG TAB PO SCH (11:15)
[2017-09-18] MEDS: FAMOTIDINE 20 MG TAB PO SCH ×2 (11:15→21:11)
[2017-09-18] MEDS: THIOTHIXENE 5 MG CAP PO SCH ×2 (11:16→21:11)
[2017-09-18] MEDS: PALIPERIDONE ER 6 MG TAB PO SCH (11:16)
[2017-09-18] MEDS: METOPROLOL TARTRATE 25 MG TAB PO SCH ×2 (11:16→21:11)
[2017-09-18] MEDS: RIVAROXABAN 20 MG TAB PO SCH (11:17)
[2017-09-18] MEDS ORDERED: PETROLEUM/SHARK LIVER OIL/PHENYLEPHRINE 60 GM TUBE TOPICAL PRN (13:15)
[2017-09-18 17:09] VITALS: BP 101/59; PULSE 75; RESP 16; TEMP 98.2; O2SAT 97
[2017-09-18 17:14] VITALS: BP 101/59; PULSE 75; RESP 16; TEMP 98.2
[2017-09-19 05:40] VITALS: BP 124/68; PULSE 79; RESP 17; TEMP 97.4; O2SAT 98
[2017-09-19] MEDS: metroNIDAZOLE 500 MG TAB PO SCH ×4 (05:52→18:00)
--- NOTE | 2017-09-19 08:51 | HHI.PR ---
Subjective Remarks No complaints, laughing during conversation, Denies any Bowel moments today Objective Vital Signs Date Time Temp Pulse Resp B/P (MAP) Pulse Ox O2 Delivery O2 Flow Rate FiO2 09/19/17 05:40 97.4 79 17 124/68 (86) 98 09/18/17 17:14 98.2 75 16 101/59 (73) 09/18/17 17:09 98.2 75 16 101/59 (73) 97 I/O 09/18/17 09/18/17 09/18/17 09/19/17 09/19/17 09/19/17 07:00 15:00 23:00 07:00 15:00 23:00 Intake Total 480 ml 960 ml 1440 ml 240 ml 600 ml Balance 480 ml 960 ml 1440 ml 240 ml 600 ml Intake Oral 480 ml 960 ml 1440 ml 240 ml 600 ml # Voids 4 4 4 # Bowel Movements 2 2 1 Result Diagram: 09/17/17 1229 09/17/17 1229 Objective Remarks GENERAL: This is a well-nourished, well-developed patient, in no apparent distress.but very pleasantly confused SKIN: No rashes, ecchymoses or lesions. Cool and dry. HEAD: Atraumatic. Normocephalic. No temporal or scalp tenderness. EYES: Pupils equal round and reactive. Extraocular motions intact. No scleral icterus. No injection or drainage. ENT: Nose without bleeding, purulent drainage or septal hematoma. Throat without erythema, tonsillar hypertrophy or exudate. Uvula midline. Airway patent. NECK: Trachea midline. No JVD or lymphadenopathy. Supple, nontender, no meningeal signs. CARDIOVASCULAR: Regular rate and rhythm without murmurs, gallops, or rubs. RESPIRATORY: Clear to auscultation. Breath sounds equal bilaterally. No wheezes , rales, or rhonchi. GASTROINTESTINAL: Abdomen soft, non-tender, nondistended. No hepato-splenomegaly , or palpable masses. No guarding MUSCULOSKELETAL: Extremities without clubbing, cyanosis, BL le edema. NEUROLOGICAL: Awake Cranial nerves II through XII intact. Motor and sensory grossly within normal limits. Five out of 5 muscle strength in all muscle groups. Normal speech. Medications and IVs Current Medications Medications (Trade) Dose Ordered Sig/Valentina Route Start Time Stop Time Status Last Admin (Depakote Er) 250 mg DAILY PO 09/09/17 11:30 09/18/17 11:15 (Lopressor) 12.5 mg Q12HR PO 09/09/17 21:00 09/18/17 21:11 (Xarelto) 20 mg DAILY PO 09/10/17 09:00 09/18/17 11:17 (Ativan) 1 mg Q6H PRN PO 09/09/17 11:30 Future hold (Ativan Inj) 1 mg Q6H PRN IM 09/09/17 11:30 Future hold (Ativan) 0.5 mg Q12H PRN PO 09/09/17 11:30 Future hold (Ativan Inj) 0.5 mg Q12H PRN IM 09/09/17 11:30 Future hold (Tylenol) 650 mg Q4H PRN PO 09/09/17 11:30 09/14/17 09:50 (Milk Of Magnesia Liq) 30 ml DAILY PRN PO 09/09/17 11:30 (Mag-Al Plus Susp Liq) 30 ml Q6H PRN PO 09/09/17 11:30 (Atarax) 50 mg Q6H PRN PO 09/11/17 17:30 09/14/17 12:36 (Navane) 15 mg BID PO 09/12/17 21:00 09/18/17 21:11 (Pepcid) 20 mg BID PO 09/13/17 21:00 09/18/17 21:11 (Flagyl) 500 mg Q6HR PO 09/13/17 18:00 09/23/17 12:01 09/19/17 05:52 (KCl) 10 meq BID PO 09/14/17 21:00 09/18/17 21:11 (Invega Er) 6 mg DAILY PO 09/15/17 08:00 09/18/17 11:16 (Zofran Inj) 4 mg Q6HR PRN IV PUSH 09/15/17 12:00 09/15/17 13:27 (Questran 4 Gm Pkt) 4 gm Q12HR PO 09/15/17 21:00 09/18/17 21:11 (Invega Sustenna Inj) 234 mg Q28D IM 09/18/17 10:00 09/18/17 11:18 (Mag-Al Plus Susp Liq) 30 ml Q6H PRN PO 09/17/17 10:45 (Preparation H Oint) 1 applic Q6H PRN TOPICAL 09/18/17 13:15 Assessment and Plan Problem List: (1) Bipolar affective, manic, severe ICD Codes: F31.13 - Bipolar disorder, current episode manic without psychotic features, severe Status: Acute Plan: followed by Psych (2) Diarrhea ICD Codes: R19.7 - Diarrhea, unspecified Plan: Stools have decreased Positive for Norovirus Questran (3) Hypokalemia ICD Codes: E87.6 - Hypokalemia Plan: Resolved, will check bmp in am Problem Qualifiers (1) Diarrhea: Qualified Codes: K59.1 - Functional diarrhea Lety Mendoza Sep 19, 2017 08:51
[2017-09-19] MEDS: PALIPERIDONE ER 6 MG TAB PO SCH (09:00)
[2017-09-19] MEDS: POTASSIUM CHLORIDE 10 MEQ CAP PO SCH ×2 (09:00→21:51)
[2017-09-19] MEDS: FAMOTIDINE 20 MG TAB PO SCH ×2 (09:00→21:49)
[2017-09-19] MEDS: METOPROLOL TARTRATE 25 MG TAB PO SCH ×2 (09:00→21:51)
[2017-09-19] MEDS: THIOTHIXENE 5 MG CAP PO SCH ×2 (09:00→21:50)
[2017-09-19] MEDS: RIVAROXABAN 20 MG TAB PO SCH (09:00)
[2017-09-19] MEDS: CHOLESTYRAMINE 4 GM PACKET PO SCH ×2 (09:00→21:53)
[2017-09-19] MEDS: DIVALPROEX SODIUM E.R. 250 MG TAB PO SCH (09:00)
--- NOTE | 2017-09-19 09:04 | HHI.PYPN ---
Subjective Remarks Patient seen and a room with nurse Marlyn, chart review, patient compliant medication. Patient discussed with nurse. Patients intensity childlike behavior and intrusiveness continue to diminish. We attempted to discuss possible return home. Patient appears to feel daughter is ambiguous about that. Need to check with patient's daughter. Otherwise patient no behavioral problems it appears she was stool is starting to solidify. Need to check with medical service about medical clearance for possible discharge in the next few days Review of Systems Except as stated in HPI: all other systems reviewed are Neg Mental Status Examination Appearance: Dirty, Disheveled Consciousness: Alert, Intoxicated Orientation: Person Motor Activity: Abnormal gait Speech: Pressured, Rapid Language: Neologism, Perseveration Memory: Impaired Mood: Angry Affect: Irritable Thought Process & Associations: Loose associations, Disorganized Thought Content: Bizarre thinking, Racing thoughts Hallucination Type: None Delusion Type: Bizarre Suicidal Ideation: No Suicidal Plan: No Suicidal Intention: No Homicidal Ideation: No Homicidal Plan: No Homicidal Intention: No Insight: Poor Judgment: Poor Results Labs Date/Time Source Procedure Growth Status 09/14/17 18:30 Stool Stool - Final Norovirus Complete 09/09/17 11:20 Urine Catheterized Urine Urine Culture - Final Klebsiella Pneumoniae Complete Vitals/IOs Vital Signs Date Time Temp Pulse Resp B/P (MAP) Pulse Ox O2 Delivery O2 Flow Rate FiO2 09/19/17 05:40 97.4 79 17 124/68 (86) 98 Intake and Output 09/19/17 09/19/17 09/20/17 08:00 16:00 00:00 Intake Total 240 ml 600 ml Balance 240 ml 600 ml Assessment & Plan Problem List: (1) Schizoaffective disorder, bipolar type ICD Codes: F25.0 - Schizoaffective disorder, bipolar type Status: Chronic Assessment & Plan Estimated LOS: days patient continues somewhat intrusive loud and childlike though softer than yesterday. She showing some processing of issues related to discharge. Also need to get medical clearance Justification for Cont. Inpt. At this time patient will decompensate of placed on a lower level of care Discharge Planning Postural return home with daughter Tim Ca MD Sep 19, 2017 09:04
[2017-09-19 18:35] VITALS: BP 110/56; PULSE 62; RESP 18; TEMP 97.2; O2SAT 98
[2017-09-20 06:00] VITALS: BP 113/71; PULSE 85; RESP 14; O2SAT 96
[2017-09-20] MEDS: metroNIDAZOLE 500 MG TAB PO SCH ×3 (06:08→12:00)
--- NOTE | 2017-09-20 06:30 | HHI.PR ---
Subjective Remarks very sleepy this am Objective Vital Signs Date Time Temp Pulse Resp B/P (MAP) Pulse Ox O2 Delivery O2 Flow Rate FiO2 09/20/17 06:00 85 14 113/71 (85) 96 09/19/17 18:35 97.2 62 18 110/56 (74) 98 I/O 09/19/17 09/19/17 09/19/17 09/20/17 09/20/17 09/20/17 07:00 15:00 23:00 07:00 15:00 23:00 Intake Total 240 ml 1080 ml 1560 ml 240 ml Balance 240 ml 1080 ml 1560 ml 240 ml Intake Oral 240 ml 1080 ml 1560 ml 240 ml # Voids 4 4 3 # Bowel Movements 1 2 Result Diagram: 09/17/17 1229 09/17/17 1229 Objective Remarks GENERAL: This is a well-nourished, well-developed patient, in no apparent distress.but very pleasantly confused SKIN: No rashes, ecchymoses or lesions. Cool and dry. HEAD: Atraumatic. Normocephalic. No temporal or scalp tenderness. EYES: Pupils equal round and reactive. Extraocular motions intact. No scleral icterus. No injection or drainage. ENT: Nose without bleeding, purulent drainage or septal hematoma. Throat without erythema, tonsillar hypertrophy or exudate. Uvula midline. Airway patent. NECK: Trachea midline. No JVD or lymphadenopathy. Supple, nontender, no meningeal signs. CARDIOVASCULAR: Regular rate and rhythm without murmurs, gallops, or rubs. RESPIRATORY: Clear to auscultation. Breath sounds equal bilaterally. No wheezes , rales, or rhonchi. GASTROINTESTINAL: Abdomen soft, non-tender, nondistended. No hepato-splenomegaly , or palpable masses. No guarding MUSCULOSKELETAL: Extremities without clubbing, cyanosis, 2+ BL le edema. NEUROLOGICAL: Alert/sleepy Cranial nerves II through XII intact. Motor and sensory grossly within normal limits. Five out of 5 muscle strength in all muscle groups. Normal speech. Medications and IVs Current Medications Medications (Trade) Dose Ordered Sig/Valentina Route Start Time Stop Time Status Last Admin (Depakote Er) 1,250 mg DAILY PO 09/09/17 11:30 09/19/17 09:00 (Lopressor) 12.5 mg Q12HR PO 09/09/17 21:00 09/19/17 21:51 (Xarelto) 20 mg DAILY PO 09/10/17 09:00 09/19/17 09:00 (Ativan) 1 mg Q6H PRN PO 09/09/17 11:30 Future hold 09/19/17 21:50 (Ativan Inj) 1 mg Q6H PRN IM 09/09/17 11:30 Future hold (Ativan) 0.5 mg Q12H PRN PO 09/09/17 11:30 Future hold (Ativan Inj) 0.5 mg Q12H PRN IM 09/09/17 11:30 Future hold (Tylenol) 650 mg Q4H PRN PO 09/09/17 11:30 09/14/17 09:50 (Milk Of Magnesia Liq) 30 ml DAILY PRN PO 09/09/17 11:30 (Mag-Al Plus Susp Liq) 30 ml Q6H PRN PO 09/09/17 11:30 (Atarax) 50 mg Q6H PRN PO 09/11/17 17:30 09/14/17 12:36 (Navane) 15 mg BID PO 09/12/17 21:00 09/19/17 21:50 (Pepcid) 20 mg BID PO 09/13/17 21:00 09/19/17 21:49 (Flagyl) 500 mg Q6HR PO 09/13/17 18:00 09/23/17 12:01 09/20/17 06:08 (KCl) 10 meq BID PO 09/14/17 21:00 09/19/17 21:51 (Invega Er) 6 mg DAILY PO 09/15/17 08:00 09/19/17 09:00 (Zofran Inj) 4 mg Q6HR PRN IV PUSH 09/15/17 12:00 09/15/17 13:27 (Questran 4 Gm Pkt) 4 gm Q12HR PO 09/15/17 21:00 09/19/17 21:53 (Invega Sustenna Inj) 234 mg Q28D IM 09/18/17 10:00 09/18/17 11:18 (Mag-Al Plus Susp Liq) 30 ml Q6H PRN PO 09/17/17 10:45 (Preparation H Oint) 1 applic Q6H PRN TOPICAL 09/18/17 13:15 Assessment and Plan Problem List: (1) Bipolar affective, manic, severe ICD Codes: F31.13 - Bipolar disorder, current episode manic without psychotic features, severe Status: Acute Plan: followed by Psych (2) Diarrhea ICD Codes: R19.7 - Diarrhea, unspecified Plan: Stools have decreased Positive for Norovirus Questran (3) Hypokalemia ICD Codes: E87.6 - Hypokalemia Plan: Resolved, will check bmp in am Assessment and Plan 09/20/17- Sleepy this am, ambulating with walker. Diarrhea has subsided. She voices she is for DC on Monday. Labs pending this am Problem Qualifiers (1) Diarrhea: Qualified Codes: K59.1 - Functional diarrhea Lety Mendoza Sep 20, 2017 06:30
[2017-09-20 08:20] LABS: BASOPHIL % 0.7 % (0.0-2.0); EOSINOPHIL # 0.1 TH/MM3 (0-0.4); EOSINOPHIL % 2.2 % (0.0-4.0); HEMATOCRIT 32.7 % (35.0-46.0); HEMOGLOBIN 10.8 GM/DL (11.6-15.3); LYMPH % 29.6 % (9.0-44.0); LYMPHOCYTE # 1.1 TH/MM3 (1.0-4.8); MEAN CELL VOLUME 86.6 FL (80.0-100.0); MEAN CORPUSCULAR HEMOGLOBIN 28.7 PG (27.0-34.0); MEAN CORPUSCULAR HGB CONC 33.1 % (32.0-36.0); MEAN PLATELET VOLUME 9.1 FL (7.0-11.0); MONO % 11.6 % (0.0-8.0); MONOCYTE # 0.4 TH/MM3 (0-0.9); NEUT % 55.9 % (16.0-70.0); PLATELET COUNT 219 TH/MM3 (150-450); RED BLOOD COUNT 3.78 MIL/MM3 (4.00-5.30); RED CELL DISTRIBUTION WIDTH 15.3 % (11.6-17.2); WHITE BLOOD COUNT 3.6 TH/MM3 (4.0-11.0)
[2017-09-20 08:47] LABS: BICARBONATE 27.1 MEQ/L (21.0-32.0); CALCIUM 8.9 MG/DL (8.5-10.1); CREATININE 0.88 MG/DL (0.50-1.00)
[2017-09-20] MEDS: PALIPERIDONE ER 6 MG TAB PO SCH (09:03)
[2017-09-20] MEDS: THIOTHIXENE 5 MG CAP PO SCH (09:04)
[2017-09-20] MEDS: METOPROLOL TARTRATE 25 MG TAB PO SCH (09:04)
[2017-09-20] MEDS: DIVALPROEX SODIUM E.R. 250 MG TAB PO SCH (09:04)
[2017-09-20] MEDS: CHOLESTYRAMINE 4 GM PACKET PO SCH (09:05)
[2017-09-20] MEDS: POTASSIUM CHLORIDE 10 MEQ CAP PO SCH (09:05)
[2017-09-20] MEDS: FAMOTIDINE 20 MG TAB PO SCH (09:05)
[2017-09-20] MEDS: RIVAROXABAN 20 MG TAB PO SCH (09:05)
[2017-09-20] MEDS ORDERED: POTA10CA PO (12:40)
[2017-09-20] MEDS ORDERED: XARE20TA PO (12:40)
[2017-09-20] MEDS ORDERED: METO25TA3 PO (12:40)
[2017-09-20] MEDS ORDERED: CHOL4POW4 PO (12:40)
[2017-09-20] MEDS ORDERED: METR-1 PO (12:40)
[2017-09-20] MEDS ORDERED: INVE6TAB3 PO (12:40)
[2017-09-20] MEDS ORDERED: FAMO20TA2 PO (12:40)
[2017-09-20] MEDS ORDERED: THIO5CAP PO (12:40)
[2017-09-20] MEDS ORDERED: DIVA250ER PO (12:40)
[2017-09-20] MEDS ORDERED: PALI234P IM (12:40)
--- NOTE | 2017-09-20 12:45 | HHI.DS ---
Psychiatry Discharge Summary Inpatient Psychiatric care?: Yes Advance Directive: No Reason Not Provided: DOES NOT HAVE Mental Health AdvanceDirective: No Health Care Proxy: No Admission Admission Date Sep 09, 2017 at 11:33 Admission Diagnosis: (1) Schizoaffective disorder, bipolar type ICD Code: F25.0 - Schizoaffective disorder, bipolar type Brief History The patient is a 67-year-old woman, well known by this service, psychiatric history of schizoaffective disorder, multiple psychiatric hospitalizations, her last hospitalization was here at [place] in May 2017 , she was under the care of the children 6, documentation review, with long psychiatric history presents emergency department under the Nino act from her home with suicidal ideation. Patient is somewhat catatonic and obviously psychotic. Patient had a welfare check on her home when police found her stating that she was , and had not eaten 4 weeks. The psychiatric evaluation was not possible. The patient was extremely delusional, stating that demons were following her,religiously preoccupied, yelling at people in the ER, combative. Patient had to be medicated with Haldol 5 mg and 2 mg of Ativan IM in order to calm her down. Tobacco Use In Past 30 Days: No Tobacco Past 30 Days Alcohol Use: Never Hospital Course Patient's hospital course was uneventful, she showed behaviors that were similar to prior hospitalizations. There is some intrusiveness superficiality and childlike behaviors. Were with her intensity and frequency and duration did diminish during his stay. She show compliance with her medications. She was compliant also with the Invega, and the invega sustenna injection. This time she denies suicidality homicidality voices or visions. She states a commitment to be compliant with her medications and her psychiatric follow-up and a follow-up with Dr. Serna. Thanks medication of the patient's daughter also she is willing to have her mother come back home with her. Thus patient be discharged today to family with Rx 1 month. The follow-up [facility] medication management and injections services, the injection on 10/16/17 Results Blood Pressure 113 / 71 Vital Signs Date Time Temp Pulse Resp B/P (MAP) Pulse Ox O2 Delivery O2 Flow Rate FiO2 09/20/17 06:00 85 14 113/71 (85) 96 09/19/17 18:35 97.2 Laboratory Tests Test 09/20/17 07:33 White Blood Count 3.6 TH/MM3 (4.0-11.0) Red Blood Count 3.78 MIL/MM3 (4.00-5.30) Hemoglobin 10.8 GM/DL (11.6-15.3) Hematocrit 32.7 % (35.0-46.0) Monocytes (%) (Auto) 11.6 % (0.0-8.0) Random Glucose 147 MG/DL (74-106) Estimat Glomerular Filtration Rate 64 ML/MIN (>89) Laboratory Results Test 09/13/17 08:46 Cholesterol Level 130 MG/DL (120-200) HDL Cholesterol 38.8 MG/DL (40.0-60.0) Hemoglobin A1c 6.1 % (4.3-6.0) LDL Cholesterol 75 MG/DL (0-99) Triglycerides Level 83 MG/DL (42-150) Summary of Procedures None down Pending results at discharge: No Medications # of Antipsychotic meds at D/C: 2 Appropriate >1 Antipsych meds?: 2 (would suggest gradual taper of thiothixene as and vagus sustain a takes effect) Approp Antipsych med options 1 - Minimum of three failed multiple trials of monotherapy. 2 - Documented plan to taper to monotherapy due to previous use of multiple meds OR cross-taper in progress at D/C. 3 - Documentation of augmentation of Clozapine. 4 - Justification other than those listed in allowable values 1-3, document here : Discharge Discharge Date: Sep 20, 2017 Discharge Diagnosis: (1) Schizoaffective disorder, bipolar type ICD Code: F25.0 - Schizoaffective disorder, bipolar type Status: Chronic Pt Condition on Discharge: Stable Discharge Disposition: Discharge Home Discharge Instructions Diet Instructions: As Tolerated, No Restrictions Activities you can perform: Regular-No Restrictions Scheduled Appointment: Alden Interiano Discharge Time > 30 minutes Mental Status Examination Appearance: Dirty, Disheveled Consciousness: Alert, Intoxicated Orientation: Person Motor Activity: Abnormal gait Speech: Pressured, Rapid Language: Neologism, Perseveration Memory: Impaired Mood: Angry Affect: Irritable Thought Process & Associations: Loose associations, Disorganized Thought Content: Bizarre thinking, Racing thoughts Hallucination Type: None Delusion Type: Bizarre Suicidal Ideation: No Suicidal Plan: No Suicidal Intention: No Homicidal Ideation: No Homicidal Plan: No Homicidal Intention: No Insight: Poor Judgment: Poor Discharge/Advance Care Plan Health Problems: (1) Schizoaffective disorder, bipolar type Goals to promote your health * To prevent worsening of your condition and complications * To maintain your health at the optimal level Directions to meet your goals Take your medications as prescribed Follow your dietary instruction Follow activity as directed Keep your appointments as scheduled Take your immunizations and boosters as scheduled If your symptoms worsen call your PCP, if no PCP go to Urgent Care Center or Emergency Room For 30/01 questions related to your inpatient stay or results of tests pending at discharge, please contact Dr. Tim Ca at Smoking is Dangerous to Your Health. Avoid second hand smoking Tim Ca MD Sep 20, 2017 12:45
--- NOTE | 2017-09-20 15:06 | PD.TTN ---
Patient Problems 1. Discharge planning 2. Medication compliance 3. Knowledge deficit 4. Lack of coping skills Progress Toward Goals Provider Present: Dr. Jose Miguel Ca Provider Input: 09/20/2017; if medical clearance patient is able to be dc home with follow-up 09/18/2017; patient is about at a base line, continue to need medical clears prior to dc 09/13/17 will discuss to sign voluntary, will go home once improved 09/11/17 patient is well known to us, she has not been here since May Nurse(s) Present: RN Nurse(s) Input: 09/20/2017; patient is compliant with care and treatment 09/18/2017; patient is compliant with care, and medication, meals and treatment Psychiatric Counselors Present: Stephanie Davis LCSW, Bettina Claudio [facility] Psych Therapist Input: 06/22/2018; counselor will arrange outpatient appointments and transportation 06/20/2018; counselor will contact patient's family 09/13/17 talked with her DCF worker investigating an incident if darin could go on outpatient commitment program be helpful will go home once better, she is compliant and pleasant since on the unit 09/11/17 she was Nino Acted from home Group Spec/RT/OT/CHENG Present: Fam Metz, DOM Group Spec/RT/OT/CHENG Input: 09/13/17 participates in most groups 09/11/17 not attended any groups yet Documentation Scribe: Bettina Claudio Teaching Recipient: Patient GonzálezBettina [facility] Sep 20, 2017 15:06
== END 2017-09-20 15:15 | disposition home or self-care (01) | DRG 885 ==
LOC: NEPD 10:11 → NEDA 11:33 → H250 13:14 → H4EA 09-13 18:22
PROVIDERS: ADMIT Psychiatry & Neurology Psychiatry; ATTEND Psychiatry & Neurology Psychiatry
DX: F25.0 Schizoaffective disorder, bipolar type (principal); A08.39 Other viral enteritis; N39.0 Urinary tract infection, site not specified; B96.1 Klebsiella pneumoniae [K. pneumoniae] as the cause of diseases classified elsewhere; Z91.14 Patient's other noncompliance with medication regimen; E87.6 Hypokalemia; Z86.718 Personal history of other venous thrombosis and embolism; Z79.02 Long term (current) use of antithrombotics/antiplatelets; Z96.641 Presence of right artificial hip joint
CPT/HCPCS: 80048; 80053; 80061; 80307; 81001; 83036; 84443; 85025; 87077; 87086; 87186; 87328; 87329; 87493; 87506; 96372; J0696; J1200; J1630; J2060; J2405; J2426; J7030; P9612

== ENCOUNTER 2017-09-28 19:55 | Inpatient (IN) | payer MEDICARE, OTHER ==
[~2017-09-28] VITALS: Ht 170.2 cm; Wt 79.0 kg
[~2017-09-28 19:55] MED LIST changes: +CHOL4POW4 PO; +INVE6TAB3 PO; +METR-1 PO; +PALI234P IM; +POTA10CA PO; -THIO10CA PO; +THIO5CAP PO
[2017-09-28 20:27] VITALS: BP 126/71; PULSE 103; RESP 19; TEMP 98.4; O2SAT 99
[2017-09-28] MEDS ORDERED: LORazepam 2 MG/ML VIAL IM ONE (20:30)
[2017-09-28] MEDS ORDERED: HALOPERIDOL LACTATE 5 MG/ML AMP IM ONE (20:30)
--- NOTE | 2017-09-28 20:34 | PD ---
HPI Chief Complaint: BA Time Seen by Provider: 20:10 Travel History International Travel<30 days: No Contact w/Intl Traveler<30days: No Traveled to known affect area: No History of Present Illness HPI 67-year-old white female presents emergency department under a Nino act by PD. The patient was found to be confused and unable to care of herself. She is urinated on herself. She appears acutely psychotic. The patient was just recently evaluated and treated here in the hospital. The patient here knows the date, location but goes off on tangents and makes bizarre statements. The patient appears to be having some hypomania and psychosis associated with her schizoaffective disorder. The patient will be medicated with Haldol 5 mg and Ativan 2 mg IM. Patient denies any suicidal homicidal ideation. PFSH Past Medical History Arthritis: No Asthma: No Autoimmune Disease: No Blood Disorders: No Bipolar Disorder: Yes Anxiety: Yes Depression: Yes Heart Rhythm Problems: No Cancer: No Cardiovascular Problems: Yes (Hx DVT) High Cholesterol: No Chemotherapy: No Chest Pain: No Congestive Heart Failure: No COPD: No Cerebrovascular Accident: No Diabetes: Yes (UNKNOWN) Diminished Hearing: No Endocrine: Yes Gastrointestinal Disorders: No GERD: No Genitourinary: Yes (UTI) Headaches: No Hiatal Hernia: No Hypertension: Yes Immune Disorder: No Kidney Stones: No Musculoskeletal: Yes (right clubbed foot; right hip replacement) Neurologic: No Psychiatric: Yes (Bipolar disorder) Reproductive: No Respiratory: No Migraines: No Radiation Therapy: No Renal Failure: No Seizures: No Sickle Cell Disease: No Sleep Apnea: No Thyroid Disease: No Ulcer: No Menopausal: Yes : 2 Para: 2 Miscarriage: 0 : 0 Past Surgical History Abdominal Surgery: No AICD: No Arteriovenous Shunt: No Cardiac Surgery: No Ear Surgery: No Endocrine Surgery: No Eye Surgery: No Genitourinary Surgery: No Gynecologic Surgery: No Hysterectomy: No Insulin Pump: No Joint Replacement: No Oral Surgery: No Pacemaker: No Thoracic Surgery: No Other Surgery: Yes (right hip replacement) Social History Alcohol Use: No (UNABLE TO OBTAIN) Tobacco Use: No (UNABLE TO OBTAIN) Substance Use: No Allergies-Medications (Allergen,Severity, Reaction): Coded Allergies: Sulfa (Sulfonamide Antibiotics) (Verified Allergy, Severe, Hives, 09/09/17) ibuprofen (Verified Allergy, Severe, HIVES, 09/09/17) penicillin G (Verified Allergy, Severe, HIVES, 09/09/17) Reported Meds & Prescriptions Reported Meds & Active Scripts Active Potassium Chloride ER (Potassium Chloride) 10 Meq Cap 10 Meq PO BID Invega Sustenna Inj (Paliperidone Palmitate) 234 Mg/1.5 Ml Inj 234 Mg IM Q28D Invega (Paliperidone ER) 6 Mg Tab 6 Mg PO DAILY Flagyl (Metronidazole) 500 Mg Tab 500 Mg PO Q6HR Cholestyramine 4 Gm/Pkt Powd 4 Gm PO Q12HR 1 packet contains 4 grams of cholestyramine. Famotidine 20 Mg Tab 20 Mg PO BID Thiothixene 5 Mg Cap 15 Mg PO BID Depakote ER (Divalproex Sodium) 250 Mg Diana 1,250 Mg PO 5 TABS DAILY 15 Days Xarelto (Rivaroxaban) 20 Mg Tab 20 Mg PO DAILY 15 Days Metoprolol Tartrate 25 Mg Tab 12.5 Mg PO Q12HR 15 Days Novolog Inj (Insulin Aspart) 1,000 Unit/10 Ml Vial 1-9 Units SQ ACHS Max dose at bedtime:( )units; sugars less than 70,(0)units; sugars 150-199,(1) unit; sugars 200-249,(3) units; sugars 250-299,(5) units; sugars 300-349,(7) units; sugars greater than 349,(9) units Easy Comfort Pen Ray 31G X 5 mm 31 Gauge X 3/16" Mis Box SQ DIRECTED Famotidine 20 Mg Tab 10 Mg PO BID 15 Days Review of Systems ROS Limitations: Psychotic, Poor Historian Physical Exam Narrative GENERAL: Well-nourished, well-developed patient. Patient is disheveled and his urine soaked clothing. Patient is acutely manic and psychotic. SKIN: Warm and dry. HEAD: Normocephalic and atraumatic. EYES: No scleral icterus. No injection or drainage. ENT: No nasal drainage noted. Mucous membranes pink. Airway patent. NECK: Supple, trachea midline. Moves head freely without obvious discomfort. CARDIOVASCULAR: Regular rate and rhythm without murmurs, gallops, or rubs. RESPIRATORY: Breath sounds equal bilaterally. No accessory muscle use. GASTROINTESTINAL: Abdomen soft, non-tender, nondistended. EXTREMITIES: No cyanosis. +2 pedal edema. Patient has venous stasis changes in the lower extremities. BACK: Nontender without obvious deformity. No CVA tenderness. NEURO: Patient is alert and oriented. no sensorimotor deficits. Nonfocal. Normal speech. PSYCH: Acutely psychotic and manic Data Data Orders Orders Complete Blood Count With Diff (09/28/17 20:17) Comprehensive Metabolic Panel (09/28/17 20:17) Thyroid Stimulating Hormone (09/28/17 20:17) Urinalysis - C+S If Indicated (09/28/17 20:17) Cath For Specimen (09/28/17 20:17) Valproic Acid (Depakene) (09/28/17 20:17) Psych Screen (09/28/17 20:17) Haloperidol Inj (Haldol Inj) (09/28/17 20:30) Lorazepam Inj (Ativan Inj) (09/28/17 20:30) Drug Screen, Random Urine (09/28/17 20:17) Alcohol (Ethanol) (09/28/17 20:17) Salicylates (Aspirin) (09/28/17 20:17) Tylenol (Acetaminophen) (09/28/17 20:17) MDM Medical Decision Making Medical Screen Exam Complete: Yes Emergency Medical Condition: Yes Medical Record Reviewed: Yes Differential Diagnosis MDM: High Differential diagnoses: Schizophrenia, schizoaffective disorder, bipolar, anxiety, depression, adjustment reaction, mood disorder NOS, ODD, depressive disorder NOS, dementia, dementia with agitation, psychosis NOS, substance induced mood disorder, DMDD, Asperger syndrome, infection,electrolyte abnormality, malingering. Narrative Course Mental health screening discussed with the patient. Psychiatric screen ordered. The patient is medicated with Haldol 5 mg IM and Ativan 2 mg IM. The patient has been medically cleared. This is medical clearance for psychiatric admission, schizoaffective disorder Diagnosis Primary Impression: Medical clearance for psychiatric admission Additional Impression: Schizoaffective disorder Condition: Stable Elia Chung Sep 28, 2017 20:34
[2017-09-28 21:22] LABS: AUTOMATED NEUTROPHIL # 1.7 TH/MM3 (1.8-7.7); BASOPHIL % 0.9 % (0.0-2.0); EOSINOPHIL # 0.1 TH/MM3 (0-0.4); EOSINOPHIL % 3.4 % (0.0-4.0); HEMATOCRIT 31.6 % (35.0-46.0); HEMOGLOBIN 10.8 GM/DL (11.6-15.3); LYMPHOCYTE # 1.2 TH/MM3 (1.0-4.8); MEAN CELL VOLUME 86.8 FL (80.0-100.0); MEAN CORPUSCULAR HEMOGLOBIN 29.6 PG (27.0-34.0); MEAN CORPUSCULAR HGB CONC 34.1 % (32.0-36.0); MONO % 18.5 % (0.0-8.0); MONOCYTE # 0.7 TH/MM3 (0-0.9); NEUT % 45.2 % (16.0-70.0); PLATELET COUNT 228 TH/MM3 (150-450); RED BLOOD COUNT 3.64 MIL/MM3 (4.00-5.30); RED CELL DISTRIBUTION WIDTH 15.4 % (11.6-17.2); WHITE BLOOD COUNT 3.8 TH/MM3 (4.0-11.0)
[2017-09-28 21:45] LABS: ALT (GPT) 18 U/L (10-53)
[2017-09-28 21:54] LABS: ALKALINE PHOSPHATASE 58 U/L (45-117); TOTAL BILIRUBIN ADULT 0.3 MG/DL (0.2-1.0); TOTAL PROTEIN 7.4 GM/DL (6.4-8.2)
[2017-09-28 21:59] LABS: ACETAMINOPHEN LESS THAN 2.0 MCG/ML (10.0-30.0); AST (GOT) 17 U/L (15-37); BICARBONATE 24.8 MEQ/L (21.0-32.0); BLOOD UREA NITROGEN 14 MG/DL (7-18); CALCIUM 8.7 MG/DL (8.5-10.1); CHLORIDE 109 MEQ/L (98-107); CREATININE 0.85 MG/DL (0.50-1.00); GLOMERULAR FILTRATION RATE 67 ML/MIN (>89); GLUCOSE,RANDOM 148 MG/DL (74-106); SODIUM (NA) 141 MEQ/L (136-145)
[2017-09-29 02:16] VITALS: BP 123/76; PULSE 102; RESP 19; O2SAT 98
[2017-09-29 06:43] VITALS: RESP 18
[2017-09-29 10:28] LABS: BACTERIA, URINE RARE /hpf; BILIRUBIN, URINE NEG (NEG); BLOOD, URINE TRACE (NEG); CALCIUM OXALATE CRYSTALS,URINE RARE /hpf; GLUCOSE,URINE NEG (NEG); KETONE, URINE NEG (NEG); NITRITE,URINE NEG (NEG); SQUAMOUS EPITHELIAL CELL URINE 10 /hpf (0-5); URINE COLOR YELLOW (YELLW/STRAW); URINE LEUKOCYTE ESTERASE TRACE (NEG)
[2017-09-29] MEDS ORDERED: LORazepam 2 MG/ML VIAL IM PRN (12:00)
[2017-09-29] MEDS ORDERED: ACETAMINOPHEN 325 MG TAB PO PRN (12:00)
[2017-09-29] MEDS ORDERED: MAGNESIUM HYDROXIDE SUSP 30 ML CUP PO PRN (12:00)
[2017-09-29] MEDS ORDERED: ALUMINUM/MAGNESIUM/SIMETH 30 ML CUP PO PRN (12:00)
[2017-09-29] MEDS ORDERED: PILL SPLITTER OTHER PRN (12:15)
--- NOTE | 2017-09-29 12:22 | HHI.HP ---
Provisional Diagnosis Admission Date Sep 29, 2017 at 11:53 [place] I. Schizoaffective disorder Certification of Person's Competence To Provide Express and Informed Consent I have personally examined Theresa Hurley , a person being served at [facility] on, Sep 29, 2017 12:03. Express and informed consent means consent voluntarily given in writing, by a competent person, after sufficient explanation and disclosure of the subject matter involved to enable the person to make a knowing and willful decision without any element of force, fraud, deceit, duress, or other form of constraint or coercion. This person is 18 years of age or older, is not now known to be incompetent to consent to treatment with a guardian advocate, and does not have a health care surrogate or proxy currently making medical treatment decisions. I have found this person to be one of the following: [] Competent to provide express and informed consent, as defined above, for voluntary admission to this facility and is competent to provide express and informed consent for treatment. He/she has the consistent capacity to make well reasoned, willful, and knowing decisions concerning his or her medical or mental health treatment. The person fully and consistently understands the purpose of the admission for examination/placement and is fully capable of personally exercising all rights assured [place]xxx] Incompetent to provide express and informed consent to voluntary admission , and this is incompetent to provide express and informed consent to treatment. The person must be transferred to involuntary status and a petition for a guardian advocate filed with the Circuit Court. [] Refusing to provide express and informed consent to voluntary admission but is competent to provide express and informed consent for treatment. The person must be discharged or transferred to involuntary status. Form shall be completed within 24 hours of a person's arrival at the receiving facility and filed in the clinical record of each person: 1. Admitted on a voluntary basis 2. Permitted to provide express and informed consent to his/her own treatment 3. Allowed to transfer from involuntary to voluntary status 4. Prior to permitting a person to consent to his or her own treatment after having been previously found incompetent to consent to treatment. History of Present Illness Capacity: Lacks Capacity HPI The patient is a 67-year-old woman, well known by this service, psychiatric history of schizoaffective disorder, multiple psychiatric hospitalizations, her last hospitalization was here at [facility] in earlier this month, domiciled with daughter, who brought in under Nino act as the patient was found lying on the floor and feces with a concern patient having inability to care for self. Patient was seen in the ER to be disheveled, with bilateral lower leg edema, multiple insect bites, malodorous, and noted to be talking to self at times. Patient with limited cooperation and poor historian as well as noted to be somewhat disorganized with concrete thought process. Patient states that she lives with her daughter and that she came by police car after her doctor called 9 1. Patient states that she was "acting differently, unusual " and then states that she wanted to get away from her daughter Corie. Patient was unable to elaborate on circumstances that brought to the hospital or currently conditions at home. Patient states she is feeling "fine" and wanted to go home she denies any perceptual disturbances but is noted to be internally preoccupied or responding to internal stimuli here in the ED. freelance writer discussed case with nursing staff as well as DCF representatives who reported that there have been multiple 9 1 because to her residence by neighbors as well as multiple visits by their agency as patient stopped taking her medications at home was noted to have urinated and defecated all over the house and the patient is unable to care for self. He also noted that the patient is assigned to make medical and financial decisions on behalf of her daughter Corie. Patient also was reported to be having episodes where she would lay down in the back yard screaming or in the driveway which is disturbed neighbors and with police involvement multiple times for these types of incidents. Patient this time acutely psychotic, disorganized require inpatient stabilization at this time. Rest of history difficult to obtain due to patient's current disorganization and symptomatology. Review of Systems Musculoskeletal: COMPLAINS OF: Muscle aches (Lower extremities) Integumentary: COMPLAINS OF: Pruritus Past Family Social History Coded Allergies: Sulfa (Sulfonamide Antibiotics) (Verified Allergy, Severe, Hives, 09/09/17) ibuprofen (Verified Allergy, Severe, HIVES, 09/09/17) penicillin G (Verified Allergy, Severe, HIVES, 09/09/17) Active Scripts Potassium Chloride ER (Potassium Chloride ER) 10 Meq Cap, 10 MEQ PO BID for health, #60 CAP 0 Refills Prov:Tim Ca MD 09/20/17 Paliperidone Palmitate Inj (Invega Sustenna Inj) 234 Mg/1.5 Ml Inj, 234 MG IM Q28D for health, #1 INJECTION 1 Refill Prov:Tim Ca MD 09/20/17 Paliperidone ER (Invega) 6 Mg Tab, 6 MG PO DAILY for health, #30 TAB 0 Refills Prov:Tim Ca MD 09/20/17 Metronidazole (Flagyl) 500 Mg Tab, 500 MG PO Q6HR for health, #16 TAB 0 Refills Prov:Tim Ca MD 09/20/17 Cholestyramine (Cholestyramine) 4 Gm/Pkt Powd, 4 GM PO Q12HR for health, #30 PACKET 1 Refill 1 packet contains 4 grams of cholestyramine. Prov:Tim Ca MD 09/20/17 Famotidine (Famotidine) 20 Mg Tab, 20 MG PO BID for health, #60 TAB 0 Refills Prov:Tim Ca MD 09/20/17 Thiothixene (Thiothixene) 5 Mg Cap, 15 MG PO BID for mental health, #90 CAP 1 Refill Prov:Tim Ca MD 09/20/17 Divalproex ER (Depakote ER) 250 Mg Diana, 1250 MG PO 5 tabs DAILY for Mental Health for 15 Days, #75 TAB 1 Refill Prov:Tim Ca MD 09/20/17 Rivaroxaban (Xarelto) 20 Mg Tab, 20 MG PO DAILY for Health for 15 Days, #30 TAB 0 Refills Prov:Tim Ca MD 09/20/17 Metoprolol Tartrate (Metoprolol Tartrate) 25 Mg Tab, 12.5 MG PO Q12HR for Blood Pressure Management for 15 Days, #30 TAB 0 Refills Prov:Tim Ca MD 09/20/17 Insulin Aspart Inj (Novolog Inj) 1,000 Unit/10 Ml Vial, 1-9 UNITS SQ ACHS for Blood Sugar Management, #10 ML 0 Refills Max dose at bedtime:( )units; sugars less than 70,(0)units; sugars 150-199,(1) unit; sugars 200-249,(3) units; sugars 250-299,(5) units; sugars 300-349,(7) units; sugars greater than 349,(9) units Prov:Osiel Davis MD 06/05/17 Easy Comfort Pen [place] 31G X 5 mm (Easy Comfort Pen [place] 31G X 5 mm) 31 Gauge X 3/16" Mis, BOX SQ DIRECTED for Blood Sugar Management, #1 Prov:Osiel Davis MD 06/05/17 Famotidine (Famotidine) 20 Mg Tab, 10 MG PO BID for Health for 15 Days, #15 TAB 1 Refill Prov:Osiel Davis MD 06/05/17 Current Medications Medications (Trade) Dose Ordered Sig/[place] Route Start Time Stop Time Status Last Admin (Questran 4 Gm Pkt) 4 gm Q12HR PO 09/29/17 21:00 UNV (Depakote Er) 1,250 mg DAILY PO 09/30/17 09:00 UNV (Pepcid) 10 mg BID PO 09/29/17 21:00 UNV (Lopressor) 12.5 mg Q12HR PO 09/29/17 12:00 UNV (Invega Er) 6 mg DAILY PO 09/29/17 12:00 UNV (Xarelto) 20 mg DAILY PO 09/29/17 12:00 UNV (Navane) 15 mg BID PO 09/29/17 12:00 UNV Physical Exam Patient not noted to be in acute distress was noted to be very disheveled, malodorous, with bilateral lower extremity swelling but left leg more prominent than the right with some redness on left lower extremity, multiple insect bites upper extremities, no gross motor abnormalities, no's signs of tremor or EPS, no psychomotor agitation or retardation. Vital Signs Vital Signs Date Time Temp Pulse Resp B/P (MAP) Pulse Ox O2 Delivery O2 Flow Rate FiO2 09/29/17 06:43 18 09/29/17 02:16 102 98 Room Air 09/28/17 20:27 98.4 Lab Results labs reviewed Test 09/28/17 20:54 09/29/17 09:32 White Blood Count 3.8 TH/MM3 Red Blood Count 3.64 MIL/MM3 Hemoglobin 10.8 GM/DL Hematocrit 31.6 % Mean Corpuscular Volume 86.8 FL Mean Corpuscular Hemoglobin 29.6 PG Mean Corpuscular Hemoglobin Concent 34.1 % Red Cell Distribution Width 15.4 % Platelet Count 228 TH/MM3 Mean Platelet Volume 9.0 FL Neutrophils (%) (Auto) 45.2 % Lymphocytes (%) (Auto) 32.0 % Monocytes (%) (Auto) 18.5 % Eosinophils (%) (Auto) 3.4 % Basophils (%) (Auto) 0.9 % Neutrophils # (Auto) 1.7 TH/MM3 Lymphocytes # (Auto) 1.2 TH/MM3 Monocytes # (Auto) 0.7 TH/MM3 Eosinophils # (Auto) 0.1 TH/MM3 Basophils # (Auto) 0.0 TH/MM3 CBC Comment DIFF FINAL Differential Comment Blood Urea Nitrogen 14 MG/DL Creatinine 0.85 MG/DL Random Glucose 148 MG/DL Total Protein 7.4 GM/DL Albumin 3.0 GM/DL Calcium Level 8.7 MG/DL Alkaline Phosphatase 58 U/L Aspartate Amino Transf (AST/SGOT) 17 U/L Alanine Aminotransferase (ALT/SGPT) 18 U/L Total Bilirubin 0.3 MG/DL Sodium Level 141 MEQ/L Potassium Level 3.7 MEQ/L Chloride Level 109 MEQ/L Carbon Dioxide Level 24.8 MEQ/L Anion Gap 7 MEQ/L Estimat Glomerular Filtration Rate 67 ML/MIN Thyroid Stimulating Hormone 3rd Gen 1.710 uIU/ML Salicylates Level LESS THAN 1.7 MG/DL Urine Opiates Screen NEG Acetaminophen Level LESS THAN 2.0 MCG/ML Urine Barbiturates Screen NEG Valproic Acid (Depakene) Level 4 MCG/ML Urine Amphetamines Screen NEG Urine Benzodiazepines Screen NEG Urine Cocaine Screen NEG Urine Cannabinoids Screen NEG Ethyl Alcohol Level LESS THAN 3 MG/DL Urine Color YELLOW Urine Turbidity HAZY Urine pH 5.0 Urine Specific [place] 1.023 Urine Protein NEG mg/dL Urine Glucose (UA) NEG mg/dL Urine Ketones NEG mg/dL Urine Occult Blood TRACE Urine Nitrite NEG Urine Bilirubin NEG Urine Urobilinogen LESS THAN 2.0 MG/DL Urine Leukocyte Esterase TRACE Urine RBC 6 /hpf Urine WBC 3 /hpf Urine Squamous Epithelial Cells 10 /hpf Urine Calcium Oxalate Crystals RARE /hpf Urine Bacteria RARE /hpf Microscopic Urinalysis Comment CULT NOT INDICATED Mental Status Examination Appearance: Disheveled Consciousness: Alert Orientation: Person, Date/Time Motor Activity: Abnormal gait Speech: Slow (slightly) Language: Adequate Fund of Knowledge: Poor Attention and Concentration: Inadequate Memory: Impaired Mood: Irritable Affect: Irritable Thought Process & Associations: Disorganized, Other (concrete) Thought Content: Bizarre thinking Hallucination Type: None (responding to internal stimuli) Suicidal Ideation: No Suicidal Plan: No Suicidal Intention: No Homicidal Ideation: No Homicidal Plan: No Homicidal Intention: No Insight: Poor Judgment: Poor Assessment & Plan Problem List: (1) Schizoaffective disorder, bipolar type ICD Codes: F25.0 - Schizoaffective disorder, bipolar type Status: Chronic Assessment & Plan Estimated LOS: 5-7 days. Patient is a 67-year-old woman who carries a diagnosis of schizoaffective disorder, multiple psychiatric admissions recently discharged from this facility earlier this month with a history of years to treatment and readmissions to do decompensation due to the same was brought in under Nino act was concerned patient inability to care for self. Patient will be admitted under involuntary condition petition for employed hospitalization started, second opinion requested. Patient this time capacity and will require healthcare surrogate and guardian advocate for this admission. Collateral information pending. Social work intervention for psychosocial assessment. Continue monitor mood and behavior. Hospital consult requested. Patient to be transferred to the inpatient medical/psychiatry unit when bed is available. Discharge planning in progress. Discharge Planning To be determined. Adonis Faulkner MD Sep 29, 2017 12:22
[2017-09-29] MEDS ORDERED: DEXTROSE 50% IN WATER 50 ML VIAL(D50) IV PUSH PRN (15:15)
[2017-09-29] MEDS ORDERED: GLUCAGON 1 MG/ML VIAL OTHER PRN (15:15)
--- NOTE | 2017-09-29 15:29 | PD.CONS ---
HPI Service [facility] Hospitalists Consult Requested By Reason for Consult Medical management Primary Care Physician Abdoulaye Barclay DO Diagnoses: History of Present Illness Written by Ena Germain, acting as scribe for Dr. Iglesias on 09/29/17 at 15:29. 67-year-old female with a PHM of HTN, DM, DVT's, depression, anxiety, and bipolar disorder admitted to [facility] under Nino act after she was found at home lying on the floor in feces, there were concerns for patients ability to take care of herself. [facility] has been consulted to assist with ongoing medical management while she is in medical psych unit. She is seen and examined in her room resting in a chair. She is awake, alert and oriented x2. She repots that the reason why she keeps coming back to the hospital is because every time someone forgets to take off the hospital arm bad off and she some how ends up back her. She denies any recent fevers, chills, nausea, vomiting or diarrhea. Has been having regular BM's with no constipation, black or blood in her stool. She repots eating and is asking for something to eat as she is very hungry. When asked if she has been taking her Xarelto at home she states she has not. She does not know when the swelling to her legs began. She repots that her leg is red because she was out in the sun. She reports itching and state that she has bug bites. She denies taking a diuretic or leg swelling. When asked if she is in pain, she states " No, just itch". I ask if there is anything that is uncomfortable or that is bothering her she denies this. She also denies any cough, SOB, dizziness, or chest pain. 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 Famotidine 20 Mg Tab 20 Mg PO BID Thiothixene 5 Mg Cap 15 Mg PO BID Depakote ER (Divalproex Sodium) 250 Mg Diana 1,250 Mg PO 5 TABS DAILY 15 Days Xarelto (Rivaroxaban) 20 Mg Tab 20 Mg PO DAILY 15 Days Metoprolol Tartrate 25 Mg Tab 12.5 Mg PO Q12HR 15 Days Novolog Inj (Insulin Aspart) 1,000 Unit/10 Ml Vial 1-9 Units SQ ACHS Max dose at bedtime:( )units; sugars less than 70,(0)units; sugars 150-199,(1) unit; sugars 200-249,(3) units; sugars 250-299,(5) units; sugars 300-349,(7) units; sugars greater than 349,(9) units Easy Comfort Pen [place] 31G X 5 mm 31 Gauge X 3/16" Mis Box SQ DIRECTED Famotidine 20 Mg Tab 10 Mg PO BID 15 Days Active Ordered Medications Current Medications Medications (Trade) Dose Ordered Sig/[place] Route Start Time Stop Time Status Last Admin (Questran 4 Gm Pkt) 4 gm Q12HR PO 09/29/17 21:00 (Depakote Er) 1,250 mg DAILY PO 09/30/17 09:00 (Pepcid) 10 mg BID PO 09/29/17 21:00 (Lopressor) 12.5 mg Q12HR PO 09/29/17 12:00 09/29/17 15:45 (Invega Er) 6 mg DAILY PO 09/29/17 12:00 09/29/17 15:44 (Xarelto) 20 mg DAILY PO 09/29/17 12:00 09/29/17 15:44 (Navane) 15 mg BID PO 09/29/17 12:00 09/29/17 15:44 (Ativan) 0.5 mg Q12H PRN PO 09/29/17 12:00 (Ativan Inj) 0.5 mg Q12H PRN IM 09/29/17 12:00 (Benadryl) 50 mg HS PRN PO 09/29/17 21:00 (Tylenol) 650 mg Q4H PRN PO 09/29/17 12:00 (Milk Of Magnesia Liq) 30 ml DAILY PRN PO 09/29/17 12:00 (Mag-Al Plus Susp Liq) 30 ml Q6H PRN PO 09/29/17 12:00 (Pill Splitter) 1 ea UNSCH PRN OTHER 09/29/17 12:15 (NovoLOG SUPPLEMENTAL SCALE) 1 ACHS SLIDING SCALE SQ 09/29/17 17:00 (Glucagon Inj) 1 mg UNSCH PRN OTHER 09/29/17 15:15 (D50w (Vial) Inj) 50 ml UNSCH PRN IV PUSH 09/29/17 15:15 Pharmacy Profile Note 0 ml @ 0 mls/hr UNSCH OTHER 09/29/17 16:30 UNV Vancomycin HCl 1000 mg/Sodium Chloride 250 ml @ 250 mls/hr Q12H IV 09/29/17 16:30 UNV Family History Denies any past medical history Social History Denies any alcohol, tobacco or drug use. Physical Exam Vital Signs Vital Signs Date Time Temp Pulse Resp B/P (MAP) Pulse Ox O2 Delivery O2 Flow Rate FiO2 09/29/17 06:43 18 09/29/17 02:16 102 19 123/76 (92) 98 Room Air 09/28/17 20:27 98.4 103 19 126/71 (89) 99 Physical Exam GENERAL: This is a well-nourished, well-developed patient, in no apparent distress. SKIN: No ecchymoses or lesions. Left leg with erythema and warmth noted, right leg with mild redness. Bilateral forearm scattered erythematous spots. HEAD: Atraumatic. Normocephalic. EYES: Pupils equal round and reactive. Extraocular motions intact. No scleral icterus. No injection or drainage. ENT: Nose without bleeding, purulent drainage. Throat without erythema. Uvula midline. Airway patent. NECK: Trachea midline. No JVD CARDIOVASCULAR: Regular rate and rhythm without murmurs, gallops, or rubs. RESPIRATORY: Clear to auscultation. Breath sounds equal bilaterally. No wheezes , rales, or rhonchi. GASTROINTESTINAL: Abdomen soft, non-tender, nondistended. No guarding. MUSCULOSKELETAL: Extremities without clubbing or cyanosis. No joint tenderness, effusion, or edema noted. No calf tenderness. Left foot and leg +3 edema, right leg and foot +3 edema. NEUROLOGICAL: Awake and alert. Cranial nerves II through XII grossly intact. Motor and sensory grossly within normal limits. 4/5 muscle strength in bilateral upper extremities and right lower extremity. 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 Normal speech. Laboratory Laboratory Tests Test 09/28/17 20:54 09/29/17 09:32 White Blood Count 3.8 Red Blood Count 3.64 Hemoglobin 10.8 Hematocrit 31.6 Mean Corpuscular Volume 86.8 Mean Corpuscular Hemoglobin 29.6 Mean Corpuscular Hemoglobin Concent 34.1 Red Cell Distribution Width 15.4 Platelet Count 228 Mean Platelet Volume 9.0 Neutrophils (%) (Auto) 45.2 Lymphocytes (%) (Auto) 32.0 Monocytes (%) (Auto) 18.5 Eosinophils (%) (Auto) 3.4 Basophils (%) (Auto) 0.9 Neutrophils # (Auto) 1.7 Lymphocytes # (Auto) 1.2 Monocytes # (Auto) 0.7 Eosinophils # (Auto) 0.1 Basophils # (Auto) 0.0 CBC Comment DIFF FINAL Differential Comment Blood Urea Nitrogen 14 Creatinine 0.85 Random Glucose 148 Total Protein 7.4 Albumin 3.0 Calcium Level 8.7 Alkaline Phosphatase 58 Aspartate Amino Transf (AST/SGOT) 17 Alanine Aminotransferase (ALT/SGPT) 18 Total Bilirubin 0.3 Sodium Level 141 Potassium Level 3.7 Chloride Level 109 Carbon Dioxide Level 24.8 Anion Gap 7 Estimat Glomerular Filtration Rate 67 Thyroid Stimulating Hormone 3rd Gen 1.710 Salicylates Level LESS THAN 1.7 Urine Opiates Screen NEG Acetaminophen Level LESS THAN 2.0 Urine Barbiturates Screen NEG Valproic Acid (Depakene) Level 4 Urine Amphetamines Screen NEG Urine Benzodiazepines Screen NEG Urine Cocaine Screen NEG Urine Cannabinoids Screen NEG Ethyl Alcohol Level LESS THAN 3 Urine Color YELLOW Urine Turbidity HAZY Urine pH 5.0 Urine Specific [place] 1.023 Urine Protein NEG Urine Glucose (UA) NEG Urine Ketones NEG Urine Occult Blood TRACE Urine Nitrite NEG Urine Bilirubin NEG Urine Urobilinogen LESS THAN 2.0 Urine Leukocyte Esterase TRACE Urine RBC 6 Urine WBC 3 Urine Squamous Epithelial Cells 10 Urine Calcium Oxalate Crystals RARE Urine Bacteria RARE Microscopic Urinalysis Comment CULT NOT INDICATED Result Diagram: [id number]/28/17205309/[id number] Assessment and Plan Assessment and Plan 67-year-old female with PMH of HTN, DM, DVT, depression, anxiety, and bipolar disorder brought to the hospital under a [place] act after patient was found at home in feces and urine unable to care for herself. [facility] has been consulted for medical management, leg swelling and possible cellulitis. Bipolar disorder anxiety/depression - Treatment plan per primary team Left leg cellulitis and edema - Leg with warmth, redness, and edema. Patient repots she has not been taking her Xarelto at home. - Check leg US to rule out DVT - Stat patient on IV vancomycin, consult pharmacy to assist with dosing - Monitor leg swelling and erythema HTN, controlled - Continue home dose Metoprolol - continue monitoring BP and adjusting meds as needed DM - Diabetic diet - Accu-checks- with ISS - Monitor BS and adjust insulin as needed DVT prophylaxis- continue Xarelto Thank you for this consultation, will continue to follow along. This note was transcribed by bjorn [Ena Germain. ]. I, Dr. Veronica Iglesias personally performed the history, physical exam, and medical decision making; and confirmed the accuracy of the information in the transcribed note. Authenticated by Dr. Veronica Iglesias on 09/29/17 at 17:33 Ena Germain Sep 29, 2017 15:29 Veronica Iglesias MD Sep 29, 2017 19:32
[2017-09-29] MEDS: PALIPERIDONE ER 6 MG TAB PO SCH (15:44)
[2017-09-29] MEDS: THIOTHIXENE 5 MG CAP PO SCH ×2 (15:44→20:00)
[2017-09-29] MEDS: RIVAROXABAN 20 MG TAB PO SCH (15:44)
[2017-09-29] MEDS: METOPROLOL TARTRATE 25 MG TAB PO SCH ×2 (15:45→20:00)
[2017-09-29 16:06] VITALS: BP 120/76; PULSE 95; TEMP 98.3
[2017-09-29] MEDS ORDERED: Vancomycin Consult Pharmacy 1 EA OTHER SCH (16:30)
[2017-09-29] MEDS ORDERED: VANCOMYCIN INJ 1,000 MG in SODIUM CHLOR 0.9% 250 ML INJ 250 ML IV ONE (17:00)
[2017-09-29] MEDS: INSULIN ASPART SUPPLEMENTAL SCALE SQ SCH ×2 (17:00→21:00)
[2017-09-29] MEDS: LORazepam 0.5 MG TAB PO PRN (19:15)
[2017-09-29] MEDS: FAMOTIDINE 20 MG TAB PO SCH (20:00)
[2017-09-29] MEDS: CHOLESTYRAMINE 4 GM PACKET PO SCH (21:00)
[2017-09-29] MEDS ORDERED: OLANZapine IM 10 MG VIAL IM ONE (21:00)
[2017-09-29] MEDS ORDERED: diphenhydrAMINE HCL 50 MG CAP PO PRN (21:00)
[2017-09-29] MEDS ORDERED: VANCOMYCIN 1 GM/200 ML PREMIX IV ONE (22:00)
--- NOTE | 2017-09-29 23:17 | RADRPT ---
EXAM DATE/TIME: 09/29/2017 21:33 [place] COMPARISON: No previous studies available for comparison. INDICATIONS : Bilateral leg swelling. MEDICAL HISTORY : Hypertension. Deep vein thrombosis. Urinary tract infection. Renal disease. Diabetes. Bipolar disorde r. Anxiety. Depression. SURGICAL HISTORY : Right hip replacement. ENCOUNTER: Subsequent ACUITY: 1 month PAIN SCORE: 3/10 LOCATION: Bilateral legs. TECHNIQUE: Venous ultrasound of the left and right leg was performed from the inguinal ligament to the proximal calf. Real-time, color Doppler and spectral tracing, compression and augmentation techniques were us ed. FINDINGS: RIGHT LEG: There is normal compressibility of the deep venous system from the inguinal region to the proximal ca lf. No echogenic clot is seen in the lumen of the common femoral, femoral, popliteal, and posterior tibial veins. There is a normal response of the venous system to proximal and distal augmentation an d respiration. LEFT LEG: There is normal compressibility of the deep venous system from the inguinal region to the proximal ca lf. No echogenic clot is seen in the lumen of the common femoral, femoral, popliteal, and posterior tibial veins. There is a normal response of the venous system to proximal and distal augmentation an d respiration. CONCLUSION: Normal examination. Elia Baker MD on September 29, 2017 at 23:15 Board Certified Radiologist. This report was verified electronically.
[2017-09-30 06:00] VITALS: BP 132/73; PULSE 92; RESP 16; TEMP 97.2; O2SAT 99
[2017-09-30] MEDS: INSULIN ASPART SUPPLEMENTAL SCALE SQ SCH ×4 (08:00→21:00)
[2017-09-30] MEDS: METOPROLOL TARTRATE 25 MG TAB PO SCH ×2 (08:10→21:09)
[2017-09-30] MEDS: LORazepam 0.5 MG TAB PO PRN (08:10)
[2017-09-30] MEDS: CHOLESTYRAMINE 4 GM PACKET PO SCH ×2 (08:10→21:09)
[2017-09-30] MEDS: PALIPERIDONE ER 6 MG TAB PO SCH (08:11)
[2017-09-30] MEDS: THIOTHIXENE 5 MG CAP PO SCH ×2 (08:11→21:09)
[2017-09-30] MEDS: RIVAROXABAN 20 MG TAB PO SCH (08:11)
[2017-09-30] MEDS: FAMOTIDINE 20 MG TAB PO SCH ×2 (08:11→21:09)
[2017-09-30] MEDS: DIVALPROEX SODIUM E.R. 250 MG TAB PO SCH (08:12)
--- NOTE | 2017-09-30 08:15 | HHI.PR ---
Subjective Remarks Follow-up visit for leg cellulitis, HTN, and DM. Patient seen and examined today with nurse at bedside. She is awake, alert and in no acute distress. She denies any fevers, chills, nausea, vomiting, diarrhea, headache, cough or SOB. She denies any leg pain or itching today. She does not report any acute concerns. Objective Vitals Vital Signs Date Time Temp Pulse Resp B/P (MAP) Pulse Ox O2 Delivery O2 Flow Rate FiO2 09/30/17 06:00 97.2 92 16 132/73 (92) 99 09/29/17 16:06 98.3 95 120/76 (91) Result Diagram: 09/28/17205309/28/172053 Imaging Last Impressions Lower Extremity Ultrasound 09/29/17 0000 Signed Impressions: Service Date/Time: Friday, September 29, 2017 21:33 - CONCLUSION: Normal examination. Elia Baker MD Objective Remarks GENERAL: This is a well-nourished, well-developed patient, in no apparent distress. SKIN: Left leg with erythema which is improved compared to yesterday, no warmth today, edema has also improved. Right leg with mild redness. Bilateral forearm scattered erythematous spots. HEAD: Atraumatic. Normocephalic. EYES: Pupils equal round and reactive. No scleral icterus. No injection or drainage. ENT: Nose without bleeding, purulent drainage. Airway patent. NECK: Trachea midline. CARDIOVASCULAR: Regular rate and rhythm without murmurs, gallops, or rubs. RESPIRATORY: Clear to auscultation. Breath sounds equal bilaterally. No wheezes , rales, or rhonchi. GASTROINTESTINAL: Abdomen soft, non-tender, nondistended. No guarding. MUSCULOSKELETAL: Extremities without clubbing or cyanosis. No joint tenderness, effusion, or edema noted. No calf tenderness. Left foot and leg +2 edema, right leg and foot +2 edema. NEUROLOGICAL: Awake and alert. Cranial nerves II through XII grossly intact. Motor and sensory grossly within normal limits. 4/5 muscle strength in bilateral upper extremities and right lower extremity. 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 Normal speech. A/P Assessment and Plan 67-year-old female with PMH of HTN, DM, DVT, depression, anxiety, and bipolar disorder brought to the hospital under a Backer act after patient was found at home in feces and urine unable to care for herself. [facility] has been consulted for medical management, leg swelling and possible cellulitis. Bipolar disorder anxiety/depression - Treatment plan per primary team Left leg cellulitis and edema - Leg warmth, redness, and edema has improved since yesterday. No repots of itching or pain today. - leg US negative for DVT - continue IV vancomycin, pharmacy to assist with dosing HTN, controlled - Continue Metoprolol - continue monitoring BP and adjusting meds as needed DM - Diabetic diet - Accu-checks- with ISS - Monitor BS and adjust insulin as needed DVT prophylaxis- continue Xarelto Discussed with nurse. Ena Germain Sep 30, 2017 08:15
--- NOTE | 2017-09-30 09:24 | HHI.PYPN ---
Subjective Remarks Patient is seen for follow up; chart reviewed. Discussion nursing staff reported the patient to be screaming and rambling last evening he required ETO Zyprexa 10 mg IM 1. Patient had poor sleep this evening, labs pending for this morning. Patient was noted to be yelling out loud singing prior to interview but was, cooperative. Patient states that she been doing "much much better" states she does want to be a Nino acted again. Patient noted to have some loosening associations during interview. Patient reports having slept well contrast to nursing report. Patient states that her mood is "I have been having a healthy day which have not had an alone time". Patient did work with physical therapy today. Patient denies any perceptual disturbances. Review of Systems Except as stated in HPI: all other systems reviewed are Neg Mental Status Examination Appearance: Disheveled (Less so today) Consciousness: Alert Orientation: Person, Date/Time Motor Activity: Abnormal gait Speech: Other (Loud at times) Language: Adequate Fund of Knowledge: Poor Attention and Concentration: Inadequate Memory: Impaired Mood: Irritable (Less so today) Affect: Labile Thought Process & Associations: Loose associations, Disorganized, Other ( concrete) Thought Content: Bizarre thinking Hallucination Type: None (responding to internal stimuli) Delusion Type: None Suicidal Ideation: No Suicidal Plan: No Suicidal Intention: No Homicidal Ideation: No Homicidal Plan: No Homicidal Intention: No Insight: Poor Judgment: Poor Results Labs Labs reviewed Test 09/29/17 09:32 Urine Color YELLOW Urine Turbidity HAZY Urine pH 5.0 Urine Specific [place] 1.023 Urine Protein NEG mg/dL Urine Glucose (UA) NEG mg/dL Urine Ketones NEG mg/dL Urine Occult Blood TRACE Urine Nitrite NEG Urine Bilirubin NEG Urine Urobilinogen LESS THAN 2.0 MG/DL Urine Leukocyte Esterase TRACE Urine RBC 6 /hpf Urine WBC 3 /hpf Urine Squamous Epithelial Cells 10 /hpf Urine Calcium Oxalate Crystals RARE /hpf Urine Bacteria RARE /hpf Microscopic Urinalysis Comment CULT NOT INDICATED Vitals/IOs Vital Signs Date Time Temp Pulse Resp B/P (MAP) Pulse Ox O2 Delivery O2 Flow Rate FiO2 09/30/17 06:00 97.2 92 16 132/73 (92) 99 09/29/17 02:16 Room Air Intake and Output 09/30/17 09/30/17 10/01/17 08:00 16:00 00:00 Intake Total 360 ml Balance 360 ml Assessment & Plan Problem List: (1) Schizoaffective disorder, bipolar type ICD Codes: F25.0 - Schizoaffective disorder, bipolar type Status: Chronic Assessment & Plan Patient continues to have portables control, intrusive, labile mood, noted to have episodes of singing and yelling on the unit. Patient appear to be a better behavioral control this morning. Continue current treatment. Continue monitor mood and behavior. Discharge planning in progress. Justification for Cont. Inpt. At risk for further decompensation if at lower level of care Discharge Planning To be determined Adonis Faulkner MD Sep 30, 2017 09:24
[2017-09-30 13:27] LABS: BICARBONATE 27.2 MEQ/L (21.0-32.0); BLOOD UREA NITROGEN 8 MG/DL (7-18); CALCIUM 8.6 MG/DL (8.5-10.1); CHLORIDE 107 MEQ/L (98-107); CHOLESTEROL 128 MG/DL (120-200); GLOMERULAR FILTRATION RATE 71 ML/MIN (>89); GLUCOSE,RANDOM 114 MG/DL (74-106); SODIUM (NA) 141 MEQ/L (136-145); TRIGLYCERIDES 114 MG/DL (42-150)
[2017-09-30 13:30] LABS: CHOLESTEROL/ HDL RATIO 2.91 RATIO; HDL CHOLESTEROL 43.9 MG/DL (40.0-60.0); LDL CHOLESTEROL 61 MG/DL (0-99)
[2017-09-30] MEDS: VANCOMYCIN INJ 1,250 MG in SODIUM CHLOR 0.9% 250 ML INJ 250 ML IV SCH (13:50)
[2017-09-30 18:00] VITALS: BP 124/61; PULSE 103; RESP 16; TEMP 97.4; O2SAT 100
--- NOTE | 2017-09-30 19:59 | EKG ---
Date Performed: 09/30/2017 Time Performed: 09:45:51 PTAGE: 67 years EKG: Sinus rhythm POSSIBLE LEFT ATRIAL ENLARGEMENT MARKED LEFT AXIS DEVIATION ANTEROSEPTAL MYOCARDIAL INFARCTION , OF INDETERMINATE AGE ABNORMAL ECG Since the PREVIOUS TRACING , no significant change noted PREVIOUS TRACIN03/13/2017 11.23 DOCTOR: Shar Li Interpretating Date/Time 09/30/2017 19:57:33
[2017-10-01 05:47] VITALS: BP 130/58; PULSE 114; RESP 18; TEMP 98; O2SAT 99
[2017-10-01] MEDS: VANCOMYCIN INJ 1,250 MG in SODIUM CHLOR 0.9% 250 ML INJ 250 ML IV SCH (06:15)
[2017-10-01] MEDS: INSULIN ASPART SUPPLEMENTAL SCALE SQ SCH ×4 (08:00→21:00)
--- NOTE | 2017-10-01 08:00 | HHI.PR ---
Subjective Remarks Follow-up leg cellulitis, DM, and HTN. Patient seen and examined in her bed resting comfortably in no acute distress. This morning she repots feeling "great ", denies any fevers, chills, nausea, vomiting, diarrhea, headache, cough or SOB. She is moving her bowels with no reported diarrhea. Spoke with nurse who vices no concerns at this moment. Objective Vitals Vital Signs Date Time Temp Pulse Resp B/P (MAP) Pulse Ox O2 Delivery O2 Flow Rate FiO2 10/01/17 05:47 98.0 114 18 130/58 (82) 99 09/30/17 18:00 97.4 103 16 124/61 (82) 100 I/O 09/30/17 09/30/17 09/30/17 10/01/17 10/01/17 10/01/17 07:00 15:00 23:00 07:00 15:00 23:00 Intake Total 1200 ml 1237 ml Balance 1200 ml 1237 ml Intake Oral 1200 ml 957 ml IV Total 280 ml # Voids 3 4 Result Diagram: 09/28/17205309/30/17 1051 Imaging Last Impressions Lower Extremity Ultrasound 09/29/17 0000 Signed Impressions: Service Date/Time: Friday, September 29, 2017 21:33 - CONCLUSION: Normal examination. Elia Baker MD Objective Remarks GENERAL: This is a well-nourished, well-developed patient, in no apparent distress. SKIN: Left leg with erythema continues to improve, no warmth, edema still present, but improved. Right leg with mild redness. Bilateral forearm scattered erythematous spots improving. HEAD: Atraumatic. Normocephalic. EYES: Pupils equal round and reactive. No scleral icterus. No injection or drainage. ENT: Nose without bleeding, purulent drainage. Airway patent. NECK: Trachea midline. CARDIOVASCULAR: Tachycardic rate, regular rhythm without murmurs, gallops, or rubs. RESPIRATORY: Clear to auscultation. Breath sounds equal bilaterally. No wheezes , rales, or rhonchi. GASTROINTESTINAL: Abdomen soft, non-tender, nondistended. No guarding. MUSCULOSKELETAL: Extremities without clubbing or cyanosis. No joint tenderness, effusion, or edema noted. No calf tenderness. Left foot and leg +2 edema, right leg and foot +2 edema. NEUROLOGICAL: Awake and alert. Cranial nerves II through XII grossly intact. Motor and sensory grossly within normal limits. 4/5 muscle strength in bilateral upper extremities and right lower extremity. 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 Normal speech. A/P Assessment and Plan 67-year-old female with PMH of HTN, DM, DVT, depression, anxiety, and bipolar disorder brought to the hospital under a Backer act after patient was found at home in feces and urine unable to care for herself. [facility] has been consulted for medical management, leg swelling and possible cellulitis. Bipolar disorder anxiety/depression - Treatment plan per primary team Left leg cellulitis and edema - Leg warmth, redness, and edema continues to improve - leg US negative for DVT - continue IV vancomycin, pharmacy to assist with dosing HTN, controlled Sinus tachycardia - Continue Metoprolol 12.5mg BID - continue monitoring BP and adjusting meds as needed - If tachycardia persist, consider increasing metoprolol dose DM - Diabetic diet - Accu-checks- with ISS - Monitor BS and adjust insulin as needed DVT prophylaxis- continue Xarelto Discussed with nurse. Ena Germain Oct 01, 2017 08:00
[2017-10-01] MEDS: METOPROLOL TARTRATE 25 MG TAB PO SCH ×2 (08:04→21:33)
[2017-10-01] MEDS: PALIPERIDONE ER 6 MG TAB PO SCH (08:04)
[2017-10-01] MEDS: FAMOTIDINE 20 MG TAB PO SCH ×2 (08:04→21:33)
[2017-10-01] MEDS: CHOLESTYRAMINE 4 GM PACKET PO SCH ×2 (08:04→21:33)
[2017-10-01] MEDS: RIVAROXABAN 20 MG TAB PO SCH (08:04)
[2017-10-01] MEDS: DIVALPROEX SODIUM E.R. 250 MG TAB PO SCH (08:04)
[2017-10-01] MEDS: THIOTHIXENE 5 MG CAP PO SCH ×2 (08:04→21:33)
[2017-10-01 08:15] LABS: CREATININE 0.89 MG/DL (0.50-1.00)
--- NOTE | 2017-10-01 10:16 | HHI.PYPN ---
Subjective Remarks Patient seen for follow, chart reviewed. Discussion nursing staff reported patient has been compliant more cooperative and less labile today. Patient was found sitting hospital bed noted become cooperative. Patient states she is feeling "better" reporting having had "wonderful sleep",, noted to be less disorganized less labile today during interview and no recent episodes of screaming. Patient states that sometimes she feels upset when she watches TV shows. Denies any perceptual disturbances or delusions. Patient states that she would like to contact her son Oral Hurley, . Review of Systems Except as stated in HPI: all other systems reviewed are Neg Mental Status Examination Appearance: Disheveled (Less so today) Consciousness: Alert Orientation: Person, Date/Time Motor Activity: Abnormal gait Speech: Other (Loud at times) Language: Adequate Fund of Knowledge: Poor Attention and Concentration: Inadequate Memory: Impaired Mood: Irritable (Less so today) Affect: Labile (Less today) Thought Process & Associations: Loose associations (Less today), Disorganized ( Less today), Other (concrete) Thought Content: Bizarre thinking Hallucination Type: None Delusion Type: None Suicidal Ideation: No Suicidal Plan: No Suicidal Intention: No Homicidal Ideation: No Homicidal Plan: No Homicidal Intention: No Insight: Poor Judgment: Poor Results Labs Labs reviewed Test 09/30/17 10:51 10/01/17 06:56 Blood Urea Nitrogen 8 MG/DL Creatinine 0.80 MG/DL 0.89 MG/DL Random Glucose 114 MG/DL Calcium Level 8.6 MG/DL Sodium Level 141 MEQ/L Potassium Level 3.8 MEQ/L Chloride Level 107 MEQ/L Carbon Dioxide Level 27.2 MEQ/L Anion Gap 7 MEQ/L Estimat Glomerular Filtration Rate 71 ML/MIN 63 ML/MIN Triglycerides Level 114 MG/DL Cholesterol Level 128 MG/DL LDL Cholesterol 61 MG/DL HDL Cholesterol 43.9 MG/DL Cholesterol/HDL Ratio 2.91 RATIO Valproic Acid (Depakene) Level 23 MCG/ML Vitals/IOs Vital Signs Date Time Temp Pulse Resp B/P (MAP) Pulse Ox O2 Delivery O2 Flow Rate FiO2 10/01/17 05:47 98.0 114 18 130/58 (82) 99 09/29/17 02:16 Room Air Assessment & Plan Problem List: (1) Schizoaffective disorder, bipolar type ICD Codes: F25.0 - Schizoaffective disorder, bipolar type Status: Chronic Assessment & Plan Patient this time noted to have less disorganization, less lability, has episodes of screaming and less responding to internal stimuli. Patient's VPA levels 23, we will continue current treatment and assessment VPA levels after patient has had adequate doses to get an accurate level with current dose. Continue current treatment. Continue monitor mood and behavior. Discharge planning in progress. Justification for Cont. Inpt. At risk for decompensation at lower level of care. Discharge Planning To be determined Adonis Faulkner MD Oct 01, 2017 10:16
[2017-10-01 13:08] LABS: HEMOGLOBIN A1C 6.2 % (4.3-6.0)
[2017-10-01 18:22] VITALS: BP 127/61; PULSE 98; RESP 18; TEMP 98; O2SAT 98
[2017-10-01] MEDS: LORazepam 0.5 MG TAB PO PRN (21:33)
[2017-10-02] MEDS ORDERED: PHARMACY ORDERED LAB ONE (00:45)
[2017-10-02] MEDS: VANCOMYCIN INJ 1,250 MG in SODIUM CHLOR 0.9% 250 ML INJ 250 ML IV SCH ×2 (01:23→18:35)
[2017-10-02 05:30] VITALS: BP 102/57; PULSE 93; RESP 18; TEMP 97.5; O2SAT 98
[2017-10-02] MEDS: INSULIN ASPART SUPPLEMENTAL SCALE SQ SCH ×4 (08:00→21:00)
[2017-10-02] MEDS: FAMOTIDINE 20 MG TAB PO SCH ×2 (10:38→20:49)
[2017-10-02] MEDS: PALIPERIDONE ER 6 MG TAB PO SCH (10:38)
[2017-10-02] MEDS: THIOTHIXENE 5 MG CAP PO SCH ×2 (10:39→20:49)
[2017-10-02] MEDS: CHOLESTYRAMINE 4 GM PACKET PO SCH ×2 (10:39→20:49)
[2017-10-02] MEDS: DIVALPROEX SODIUM E.R. 250 MG TAB PO SCH ×2 (10:39→20:49)
[2017-10-02] MEDS: RIVAROXABAN 20 MG TAB PO SCH (10:39)
[2017-10-02] MEDS: METOPROLOL TARTRATE 25 MG TAB PO SCH ×3 (10:39→22:47)
--- NOTE | 2017-10-02 12:23 | PD.PSY.CON ---
Provisional Diagnosis Admission Date Sep 29, 2017 at 11:53 [place]. Schizoaffective disorder History of Present Illness Service Psychiatry Consult Requested By Dr. Faulkner Reason for Consult Second opinion Primary Care Physician DO MIRA Franks The patient is a 67-year-old woman, well known by this service, psychiatric history of schizoaffective disorder, multiple psychiatric hospitalizations, her last hospitalization was here at [facility] in earlier this month, domiciled with daughter, who brought in under Nino act as the patient was found lying on the floor and feces with a concern patient having inability to care for self. Patient was seen in the ER to be disheveled, with bilateral lower leg edema, multiple insect bites, malodorous, and noted to be talking to self at times. Patient with limited cooperation and poor historian as well as noted to be somewhat disorganized with concrete thought process. Patient states that she lives with her daughter and that she came by police car after her doctor called 9 1. Patient states that she was "acting differently, unusual " and then states that she wanted to get away from her daughter Corie. Patient was unable to elaborate on circumstances that brought to the hospital or currently conditions at home. Patient states she is feeling "fine" and wanted to go home she denies any perceptual disturbances but is noted to be internally preoccupied or responding to internal stimuli here in the ED. technical publications writer discussed case with nursing staff as well as DCF representatives who reported that there have been multiple 9 1 because to her residence by neighbors as well as multiple visits by their agency as patient stopped taking her medications at home was noted to have urinated and defecated all over the house and the patient is unable to care for self. He also noted that the patient is assigned to make medical and financial decisions on behalf of her daughter Corie. Patient also was reported to be having episodes where she would lay down in the back yard screaming or in the driveway which is disturbed neighbors and with police involvement multiple times for these types of incidents. Patient this time acutely psychotic, disorganized require inpatient stabilization at this time. Rest of history difficult to obtain due to patient's current disorganization and symptomatology. The patient is a 67-year-old woman, domiciled with her daughter, single, unemployed, well known by the service, psychiatric history of schizoaffective disorder, bipolar disorder, multiple psychiatric hospitalizations, who was Nino acted this time due to inability to take care herself. Patient was consulted to me for second opinion. On psychiatric evaluation today the patient seems to be doing much better, with a bright affect , cooperative and calm. Patient reports that she feels much better today. She reports that her only complaint at this moment is that she has been constipated since Monday. She denies depressive symptoms, she denies anhedonia, helplessness, hopelessness, she denies suicidal and homicidal ideation, she denies visual and auditory hallucinations. She is fully oriented 3, at times become tangential and disorganized, but redirectable. Patient reports that she is willing to take her medications, she says that she understand how important they are in her life. No agitation, no aggressive behavior reported. Review of Systems Gastrointestinal: COMPLAINS OF: Constipation Except as stated in HPI: all other systems reviewed are Neg Past Family Social History Coded Allergies: Sulfa (Sulfonamide Antibiotics) (Verified Allergy, Severe, Hives, 09/09/17) ibuprofen (Verified Allergy, Severe, HIVES, 09/09/17) penicillin G (Verified Allergy, Severe, HIVES, 09/09/17) Active Scripts Potassium Chloride ER (Potassium Chloride ER) 10 Meq Cap, 10 MEQ PO BID for health, #60 CAP 0 Refills Prov:Tim Ca MD 09/20/17 Paliperidone Palmitate Inj (Invega Sustenna Inj) 234 Mg/1.5 Ml Inj, 234 MG IM Q28D for health, #1 INJECTION 1 Refill Prov:Tim Ca MD 09/20/17 Paliperidone ER (Invega) 6 Mg Tab, 6 MG PO DAILY for health, #30 TAB 0 Refills Prov:Tim Ca MD 09/20/17 Metronidazole (Flagyl) 500 Mg Tab, 500 MG PO Q6HR for health, #16 TAB 0 Refills Prov:Tim Ca MD 09/20/17 Cholestyramine (Cholestyramine) 4 Gm/Pkt Powd, 4 GM PO Q12HR for health, #30 PACKET 1 Refill 1 packet contains 4 grams of cholestyramine. Prov:Tim Ca MD 09/20/17 Famotidine (Famotidine) 20 Mg Tab, 20 MG PO BID for health, #60 TAB 0 Refills Prov:Tim Ca MD 09/20/17 Thiothixene (Thiothixene) 5 Mg Cap, 15 MG PO BID for mental health, #90 CAP 1 Refill Prov:Tim Ca MD 09/20/17 Divalproex ER (Depakote ER) 250 Mg Diana, 1250 MG PO 5 tabs DAILY for Mental Health for 15 Days, #75 TAB 1 Refill Prov:Tim Ca MD 09/20/17 Rivaroxaban (Xarelto) 20 Mg Tab, 20 MG PO DAILY for Health for 15 Days, #30 TAB 0 Refills Prov:Tim Ca MD 09/20/17 Metoprolol Tartrate (Metoprolol Tartrate) 25 Mg Tab, 12.5 MG PO Q12HR for Blood Pressure Management for 15 Days, #30 TAB 0 Refills Prov:Tim Ca MD 09/20/17 Insulin Aspart Inj (Novolog Inj) 1,000 Unit/10 Ml Vial, 1-9 UNITS SQ ACHS for Blood Sugar Management, #10 ML 0 Refills Max dose at bedtime:( )units; sugars less than 70,(0)units; sugars 150-199,(1) unit; sugars 200-249,(3) units; sugars 250-299,(5) units; sugars 300-349,(7) units; sugars greater than 349,(9) units Prov:Osiel Davis MD 06/05/17 Easy Comfort Pen [place] 31G X 5 mm (Easy Comfort Pen [place] 31G X 5 mm) 31 Gauge X 3/16" Mis, BOX SQ DIRECTED for Blood Sugar Management, #1 Prov:Osiel Davis MD 06/05/17 Famotidine (Famotidine) 20 Mg Tab, 10 MG PO BID for Health for 15 Days, #15 TAB 1 Refill Prov:Osiel Davis MD 06/05/17 Current Medications Medications (Trade) Dose Ordered Sig/Valentina Route Start Time Stop Time Status Last Admin (Questran 4 Gm Pkt) 4 gm Q12HR PO 09/29/17 21:00 10/02/17 10:39 (Depakote Er) 1,250 mg DAILY PO 09/30/17 09:00 10/02/17 10:39 (Pepcid) 10 mg BID PO 09/29/17 21:00 10/02/17 10:38 (Lopressor) 12.5 mg Q12HR PO 09/29/17 12:00 10/01/17 21:33 (Invega Er) 6 mg DAILY PO 09/29/17 12:00 10/02/17 10:38 (Xarelto) 20 mg DAILY PO 09/29/17 12:00 10/02/17 10:39 (Navane) 15 mg BID PO 09/29/17 12:00 10/02/17 10:39 (Ativan) 0.5 mg Q12H PRN PO 09/29/17 12:00 10/01/17 21:33 (Ativan Inj) 0.5 mg Q12H PRN IM 09/29/17 12:00 (Benadryl) 50 mg HS PRN PO 09/29/17 21:00 (Tylenol) 650 mg Q4H PRN PO 09/29/17 12:00 (Milk Of Magnesia Liq) 30 ml DAILY PRN PO 09/29/17 12:00 (Mag-Al Plus Susp Liq) 30 ml Q6H PRN PO 09/29/17 12:00 (Pill Splitter) 1 ea UNSCH PRN OTHER 09/29/17 12:15 (NovoLOG SUPPLEMENTAL SCALE) 1 ACHS SLIDING SCALE SQ 09/29/17 17:00 10/01/17 11:27 (Glucagon Inj) 1 mg UNSCH PRN OTHER 09/29/17 15:15 (D50w (Vial) Inj) 50 ml UNSCH PRN IV PUSH 09/29/17 15:15 Pharmacy Profile Note 0 ml @ 0 mls/hr UNSCH OTHER 09/29/17 16:30 Vancomycin HCl 1250 mg/Sodium Chloride 262.5 ml @ 250 mls/hr Q18H IV 09/30/17 13:00 10/02/17 01:23 Miscellaneous Information SPECIFIC LAB TO BE BELLA... ONCE ONCE .XX 10/03/17 12:45 10/03/17 12:46 Physical Exam Vital Signs Vital Signs Date Time Temp Pulse Resp B/P (MAP) Pulse Ox O2 Delivery O2 Flow Rate FiO2 10/02/17 05:30 97.5 93 18 102/57 (72) 98 09/29/17 02:16 Room Air I/O 10/02/17 10/02/17 10/03/17 08:00 16:00 00:00 Intake Total 600 ml Balance 600 ml Lab Results Test 10/02/17 01:00 Vancomycin Level Trough 13.8 MCG/ML Mental Status Examination Appearance: Disheveled (Less so today) Consciousness: Alert Orientation: Person, Date/Time Motor Activity: Abnormal gait Speech: Other (Loud at times) Language: Adequate Fund of Knowledge: Poor Attention and Concentration: Inadequate Memory: Impaired Mood: Irritable (Less so today) Affect: Labile (Less today) Thought Process & Associations: Loose associations (Less today), Disorganized ( Less today), Other (concrete) Thought Content: Bizarre thinking Hallucination Type: None Delusion Type: None Suicidal Ideation: No Suicidal Plan: No Suicidal Intention: No Homicidal Ideation: No Homicidal Plan: No Homicidal Intention: No Insight: Poor Judgment: Poor Assessment & Plan Problem List: (1) Schizoaffective disorder, bipolar type ICD Codes: F25.0 - Schizoaffective disorder, bipolar type Status: Chronic Assessment & Plan: I completely agree and concur with the Dr. Faulkner assessment and plan. I will increase the Depakote to 750 mg twice daily, since his Depakote level were low. Continue him back at 6 mg. Patient seems to be responded to medication appropriately at this moment. Will discuss with medical team treatment for constipation. Patient needs to continue psychiatric hospitalization for stabilization. Assessment & Plan Estimated LOS: Anatoliy Winchester MD Oct 02, 2017 12:23
[2017-10-02 18:16] VITALS: BP 103/60; PULSE 108; RESP 18; TEMP 97.7; O2SAT 98
--- NOTE | 2017-10-02 18:57 | HHI.PR ---
Subjective Remarks co no bm and swollen feet Objective Vital Signs Date Time Temp Pulse Resp B/P (MAP) Pulse Ox O2 Delivery O2 Flow Rate FiO2 10/02/17 18:16 97.7 108 18 103/60 (74) 98 10/02/17 05:30 97.5 93 18 102/57 (72) 98 I/O 10/01/17 10/01/17 10/01/17 10/02/17 10/02/17 10/02/17 07:00 15:00 23:00 07:00 15:00 23:00 Intake Total 240 ml 840 ml 1200 ml 240 ml Balance 240 ml 840 ml 1200 ml 240 ml Intake Oral 240 ml 840 ml 1200 ml 240 ml # Voids 4 7 # Bowel Movements 1 Result Diagram: 09/28/17205310/01/17 0656 Imaging Last Impressions Lower Extremity Ultrasound 09/29/17 0000 Signed Impressions: Service Date/Time: Friday, September 29, 2017 21:33 - CONCLUSION: Normal examination. Elia Baker MD Procedures us lower ext 09/29 neg dvt Objective Remarks GENERAL: Well-nourished, well-developed patient. SKIN: Warm and dry. HEAD: Normocephalic. EYES: No scleral icterus. No injection or drainage. NECK: Supple, trachea midline. No JVD or lymphadenopathy. CARDIOVASCULAR: Regular rate and rhythm without murmurs, gallops, or rubs. RESPIRATORY: Breath sounds equal bilaterally. No accessory muscle use. GASTROINTESTINAL: Abdomen soft, non-tender, nondistended. EXTREMITIES: No cyanosis, edema.2plus both lower extremities NEUROLOGICAL: Awake, alert, . Non-focal. Medications and IVs Inpatient Medications Acetaminophen (Tylenol) 650 mg Q4H PRN PO Pain 1-5 or Temp >101F; Start at 12:00 Al Hydrox/Mg Hydrox/Simethicone (Mag-Al Plus Susp Liq) 30 ml Q6H PRN PO DYSPEPSIA; Start 09/29/17 at 12:00 Cholestyramine Resin (Questran 4 Gm Pkt) 4 gm Q12HR PO Last administered on at 10:39; Start 09/29/17 at 21:00 Dextrose (D50w (Vial) Inj) 50 ml UNSCH PRN IV PUSH HYPOGLYCEMIA-SEE COMMENTS; Start 09/29/17 at 15:15 Diphenhydramine HCl (Benadryl) 50 mg HS PRN PO INSOMNIA; Start 09/29/17 at 21: 00 Divalproex Sodium (Depakote Er) 750 mg BID PO ; Start 10/02/17 at 21:00 Famotidine (Pepcid) 10 mg BID PO Last administered on 10/02/17at 10:38; Start at 21:00 Glucagon (Glucagon Inj) 1 mg UNSCH PRN OTHER HYPOGLYCEMIA-SEE COMMENTS; Start 09/29/17 at 15:15 Haloperidol Lactate (Haldol Inj) 5 mg ONCE ONCE IM Last administered on at 20:27; Start 09/28/17 at 20:30; Stop 09/28/17 at 20:31; Status DC Insulin Aspart (NovoLOG SUPPLEMENTAL SCALE) 1 ACHS SLIDING SCALE SQ Last administered on 10/01/17at 11:27; Start 09/29/17 at 17:00 Lorazepam (Ativan Inj) 0.5 mg Q12H PRN IM MODERATE TO SEVERE ANXIETY; Start at 12:00 Lorazepam (Ativan) 0.5 mg Q12H PRN PO MODERATE TO SEVERE ANXIETY Last administered on 10/01/17at 21:33; Start 09/29/17 at 12:00 Magnesium Hydroxide (Milk Of Magnesia Liq) 30 ml DAILY PRN PO CONSTIPATION Last administered on 10/02/17at 18:35; Start 09/29/17 at 12:00 Metoprolol Tartrate (Lopressor) 12.5 mg Q12HR PO Last administered on at 21:33; Start 09/29/17 at 12:00 Miscellaneous (Pill Splitter) 1 ea UNSCH PRN OTHER SEE LABEL COMMENTS; Start at 12:15 Miscellaneous Information SPECIFIC LAB TO BE ... ONCE ONCE .XX ; Start 10/03 at 12:45; Stop 10/03/17 at 12:46 Olanzapine (ZyPREXA INJ) 10 mg ONCE ONCE IM Last administered on 09/29/17at 21: 22; Start 09/29/17 at 21:00; Stop 09/29/17 at 21:01; Status DC Paliperidone Palmitate (Invega Er) 6 mg DAILY PO Last administered on at 10:38; Start 09/29/17 at 12:00 Pharmacy Profile Note 0 ml @ 0 mls/hr UNSCH OTHER ; Start 09/29/17 at 16:30 Rivaroxaban (Xarelto) 20 mg DAILY PO Last administered on 10/02/17at 10:39; Start 09/29/17 at 12:00 Thiothixene (Navane) 15 mg BID PO Last administered on 10/02/17at 10:39; Start 09/29/17 at 12:00 Vancomycin HCl 1000 mg/Sodium Chloride 250 ml @ 250 mls/hr ONCE ONCE IV Last administered on 09/29/17at 18:09; Start 09/29/17 at 17:00; Stop 09/29/17 at 17:59 ; Status DC Vancomycin HCl 1250 mg/Sodium Chloride 262.5 ml @ 250 mls/hr Q18H IV Last administered on 10/02/17at 18:35; Start 09/30/17 at 13:00 Vancomycin/Sodium Chloride 200 ml @ 200 mls/hr ONCE ONCE IV Last administered on 09/29/17at 20:00; Start 09/29/17 at 22:00; Stop 09/29/17 at 22:59 ; Status DC Assessment and Plan Assessment and Plan previous dvt n on xarelto also will add lasix for edema Abdoulaye Barclay DO Oct 02, 2017 18:57
[2017-10-03 04:29] VITALS: BP 130/73; PULSE 82; RESP 18; TEMP 97.4; O2SAT 98
[2017-10-03] MEDS: INSULIN ASPART SUPPLEMENTAL SCALE SQ SCH ×4 (08:00→21:00)
[2017-10-03 08:31] LABS: CREATININE 0.87 MG/DL (0.50-1.00)
[2017-10-03] MEDS: DIVALPROEX SODIUM E.R. 250 MG TAB PO SCH ×2 (08:35→21:00)
[2017-10-03] MEDS: THIOTHIXENE 5 MG CAP PO SCH ×2 (08:35→21:00)
[2017-10-03] MEDS: FUROSEMIDE 20 MG TAB PO SCH ×2 (08:35→18:18)
[2017-10-03] MEDS: RIVAROXABAN 20 MG TAB PO SCH (08:36)
[2017-10-03] MEDS: PALIPERIDONE ER 6 MG TAB PO SCH (08:36)
[2017-10-03] MEDS: METOPROLOL TARTRATE 25 MG TAB PO SCH ×2 (08:36→21:00)
[2017-10-03] MEDS: FAMOTIDINE 20 MG TAB PO SCH ×2 (08:36→21:00)
--- NOTE | 2017-10-03 08:58 | HHI.PR ---
Subjective Remarks up ambulating this am, still quite a bit of LE edema. Voices she was urinating all night. Objective Vital Signs Date Time Temp Pulse Resp B/P (MAP) Pulse Ox O2 Delivery O2 Flow Rate FiO2 10/03/17 04:29 97.4 82 18 130/73 (92) 98 10/02/17 18:16 97.7 108 18 103/60 (74) 98 I/O 10/02/17 10/02/17 10/02/17 10/03/17 10/03/17 10/03/17 06:59 14:59 22:59 06:59 14:59 22:59 Intake Total 840 ml 1200 ml 480 ml 240 ml Balance 840 ml 1200 ml 480 ml 240 ml Intake Oral 840 ml 1200 ml 480 ml 240 ml # Voids 7 2 5 # Bowel Movements 1 Result Diagram: 10/03/17 0735 Procedures us lower ext 09/29 neg dvt Other Results Objective Remarks GENERAL: Well-nourished, well-developed patient. SKIN: Warm and dry. HEAD: Normocephalic. EYES: No scleral icterus. No injection or drainage. NECK: Supple, trachea midline. No JVD or lymphadenopathy. CARDIOVASCULAR: Regular rate and rhythm without murmurs, gallops, or rubs. RESPIRATORY: Breath sounds equal bilaterally. No use of accessory muscle GASTROINTESTINAL: Abdomen soft, non-tender, nondistended. EXTREMITIES: No cyanosis, edema.2+ B/L LE NEUROLOGICAL: Awake, alert, mood appears stable. Medications and IVs Current Medications Medications (Trade) Dose Ordered Sig/Valentina Route Start Time Stop Time Status Last Admin (Questran 4 Gm Pkt) 4 gm Q12HR PO 09/29/17 21:00 10/02/17 20:49 (Pepcid) 10 mg BID PO 09/29/17 21:00 10/03/17 08:36 (Invega Er) 6 mg DAILY PO 09/29/17 12:00 10/03/17 08:36 (Xarelto) 20 mg DAILY PO 09/29/17 12:00 10/03/17 08:36 (Navane) 15 mg BID PO 09/29/17 12:00 10/03/17 08:35 (Ativan) 0.5 mg Q12H PRN PO 09/29/17 12:00 10/01/17 21:33 (Ativan Inj) 0.5 mg Q12H PRN IM 09/29/17 12:00 (Benadryl) 50 mg HS PRN PO 09/29/17 21:00 (Tylenol) 650 mg Q4H PRN PO 09/29/17 12:00 (Milk Of Magnesia Liq) 30 ml DAILY PRN PO 09/29/17 12:00 10/02/17 18:35 (Mag-Al Plus Susp Liq) 30 ml Q6H PRN PO 09/29/17 12:00 (Pill Splitter) 1 ea UNSCH PRN OTHER 09/29/17 12:15 (NovoLOG SUPPLEMENTAL SCALE) 1 ACHS SLIDING SCALE SQ 09/29/17 17:00 10/01/17 11:27 (Glucagon Inj) 1 mg UNSCH PRN OTHER 09/29/17 15:15 (D50w (Vial) Inj) 50 ml UNSCH PRN IV PUSH 09/29/17 15:15 Pharmacy Profile Note 0 ml @ 0 mls/hr UNSCH OTHER 09/29/17 16:30 Vancomycin HCl 1250 mg/Sodium Chloride 262.5 ml @ 250 mls/hr Q18H IV 09/30/17 13:00 10/02/17 18:35 Miscellaneous Information SPECIFIC LAB TO BE BELLA... ONCE ONCE .XX 10/03/17 12:45 10/03/17 12:46 (Depakote Er) 750 mg BID PO 10/02/17 21:00 10/03/17 08:35 (Lasix) 20 mg BID@09,18 PO 10/03/17 09:00 10/03/17 08:35 (Lopressor) 12.5 mg Q12HR PO 10/02/17 22:26 10/03/17 08:36 Assessment and Plan Problem List: (1) Bipolar disorder ICD Codes: F31.9 - Bipolar disorder, unspecified Status: Acute Plan: Cont with current treatment Permanent Comment: Rule out schizoaffective disorder, bipolar type Last Edited By: Osiel Davis on May 29, 2017 12:48 (2) Cellulitis of lower extremity ICD Codes: L03.119 - Cellulitis of unspecified part of limb Plan: Lasix, Iv vancomycin dosed by Pharmacy (3) Leg edema ICD Codes: R60.0 - Localized edema Status: Acute Plan: Cont with Lasix, monitor BMP (4) Sinus tachycardia ICD Codes: R00.0 - Tachycardia, unspecified Status: Acute Plan: Better since on Metoprolol. cont to monitor (5) Hypertension ICD Codes: I10 - Hypertension Status: Acute Plan: Controlled, has been running low, monitor for hypotension. Discharge Planning Home at [facility] Lety Mendoza Oct 03, 2017 08:58
[2017-10-03] MEDS: CHOLESTYRAMINE 4 GM PACKET PO SCH ×2 (09:00→21:00)
[2017-10-03] MEDS ORDERED: PHARMACY ORDERED LAB ONE (12:45)
--- NOTE | 2017-10-03 12:52 | HHI.PYPN ---
Subjective Remarks Patient was seen today for psychiatric reevaluation. The patient is calm, cooperative pleasant. Patient reports that she has been feeling much better today. She has been taking her medications as prescribed, no side effects reported. The patient is able to verbalize where she is at this moment, the date, who is the vegetable tier. She was able actually to go back in history and tell me who was the preceding in 1964, 1985 and 1944 correctly. Patient is completely logical, coherent and relevant. electrical maintenance worker Bettina and myself had a conversation with the patient about the convenience of being compliant with the medications in order to avoid hospitalizations. Patient accepted the fact that she may need some help with the medications at home and she would be willing to pain 1 or 2 hours of home health care to help with medication. As per nursing staff, the patient has been doing okay, she episodically become disorganized, but she is usually redirectable and compliant. No agitation or aggressive behavior reported Review of Systems Constitutional: DENIES: Diaphoretic episodes, Fatigue, Fever, Weight gain, Weight loss, Chills, Dizziness, Change in appetite, Night Sweats Endocrine: DENIES: Abnorml menstrual pattern, Heat/cold intolerance, Polydipsia , Polyuria, Polyphagia Eyes: DENIES: Blurred vision, Diplopia, Eye inflammation, Eye pain, Vision loss , Photosensitivity, Double Vision Ears, nose, mouth, throat: DENIES: Tinnitus, Hearing loss, Vertigo, Nasal discharge, Oral lesions, Throat pain, Hoarseness, Ear Pain, Running Nose, Epistaxis, Sinus Pain, Toothache, Odynophagia Respiratory: DENIES: Apneas, Cough, Snoring, Wheezing, Hemoptysis, Sputum production, Shortness of breath Cardiovascular: DENIES: Chest pain, Palpitations, Syncope, Dyspnea on Exertion , PND, Lower Extremity Edema, Orthopnea, Claudication Gastrointestinal: DENIES: Abdominal pain, Black stools, Bloody stools, Constipation, Diarrhea, Nausea, Vomiting, Difficulty Swallowing, Anorexia Genitourinary: DENIES: Abnormal vaginal bleeding, Dysmenorrhea, Dyspareunia, Sexual dysfunction, Urinary frequency, Urinary incontinence, Urgency, Hematuria , Dysuria, Nocturia, Vaginal discharge Musculoskeletal: DENIES: Joint pain, Muscle aches, Stiffness, Joint Swelling, Back pain, Neck pain Integumentary: DENIES: Abnormal pigmentation, Pruritus, Rash, Nail changes, Breast masses, Breast skin changes, Nipple discharge Hematologic/lymphatic: DENIES: Bruising, Lymphadenopathy Immunologic/allergic: DENIES: Eczema, Urticaria Neurologic: DENIES: Abnormal gait, Headache, Localized weakness, Paresthesias, Seizures, Speech Problems, Tremor, Poor Balance Psychiatric: DENIES: Anxiety, Confusion, Mood changes, Depression, Hallucinations, Agitation, Suicidal Ideation, Homicidal Ideation, Delusions Mental Status Examination Appearance: Disheveled (Less so today) Consciousness: Alert Orientation: x4 Motor Activity: Abnormal gait Speech: Other (Loud at times) Language: Adequate Fund of Knowledge: Poor Attention and Concentration: Inadequate Memory: Unremarkable Mood: Irritable (Less so today) Affect: Labile (Less today) Thought Process & Associations: Logical, Other (concrete) Thought Content: Bizarre thinking Hallucination Type: None Delusion Type: None Suicidal Ideation: No Suicidal Plan: No Suicidal Intention: No Homicidal Ideation: No Homicidal Plan: No Homicidal Intention: No Insight: Fair Judgment: Impulsive Results Labs Test 10/03/17 07:35 Creatinine 0.87 MG/DL Estimat Glomerular Filtration Rate 65 ML/MIN Vitals/IOs Vital Signs Date Time Temp Pulse Resp B/P (MAP) Pulse Ox O2 Delivery O2 Flow Rate FiO2 10/03/17 04:29 97.4 82 18 130/73 (92) 98 Intake and Output 10/03/17 10/03/17 10/04/17 08:00 16:00 00:00 Intake Total 240 ml 480 ml Balance 240 ml 480 ml Assessment & Plan Problem List: (1) Schizoaffective disorder, bipolar type ICD Codes: F25.0 - Schizoaffective disorder, bipolar type Status: Chronic Assessment & Plan: Patient presents more organized today, with a brighter affect, able to make sense, logical, coherent and relevant. She has been reported momentarily disorganized by the nurses, but redirectable. We will continue current psychotropic regimen. We will start coordinating a safe discharge. Assessment & Plan Estimated LOS: days Justification for Cont. Inpt. Patient has an increased risk to decompensate at a lower level of care. Anatoliy Garrett MD Oct 03, 2017 12:52
[2017-10-03] MEDS: VANCOMYCIN INJ 1,250 MG in SODIUM CHLOR 0.9% 250 ML INJ 250 ML IV SCH (13:00)
[2017-10-03 18:32] VITALS: BP 114/56; PULSE 78; RESP 18; TEMP 97.3; O2SAT 100
[2017-10-04] MEDS: LORazepam 0.5 MG TAB PO PRN (01:45)
[2017-10-04 06:00] VITALS: BP 118/60; PULSE 78; RESP 18; TEMP 98.1; O2SAT 98
[2017-10-04] MEDS: VANCOMYCIN INJ 1,250 MG in SODIUM CHLOR 0.9% 250 ML INJ 250 ML IV SCH (06:40)
[2017-10-04] MEDS: INSULIN ASPART SUPPLEMENTAL SCALE SQ SCH ×2 (07:49→11:43)
[2017-10-04] MEDS: DIVALPROEX SODIUM E.R. 250 MG TAB PO SCH (09:01)
[2017-10-04] MEDS: PALIPERIDONE ER 6 MG TAB PO SCH (09:01)
[2017-10-04] MEDS: THIOTHIXENE 5 MG CAP PO SCH (09:10)
[2017-10-04] MEDS: RIVAROXABAN 20 MG TAB PO SCH (09:10)
[2017-10-04] MEDS: CHOLESTYRAMINE 4 GM PACKET PO SCH (09:10)
[2017-10-04] MEDS: FAMOTIDINE 20 MG TAB PO SCH (09:11)
[2017-10-04] MEDS: METOPROLOL TARTRATE 25 MG TAB PO SCH (09:11)
[2017-10-04] MEDS: FUROSEMIDE 20 MG TAB PO SCH (09:11)
[2017-10-04] MEDS ORDERED: CHOL4POW4 PO (11:26)
[2017-10-04] MEDS ORDERED: INVE6TAB3 PO (11:26)
[2017-10-04] MEDS ORDERED: METO25TA3 PO (11:26)
[2017-10-04] MEDS ORDERED: XARE20TA PO (11:26)
[2017-10-04] MEDS ORDERED: NOVOLOGP2 SQ (11:26)
[2017-10-04] MEDS ORDERED: DIVA250ER PO (11:26)
--- NOTE | 2017-10-04 11:31 | HHI.DS ---
Psychiatry Discharge Summary Inpatient Psychiatric care?: Yes Advance Directive: No Reason Not Provided: EDUCATION PROVIDED Mental Health AdvanceDirective: No Health Care Proxy: Yes Admission Admission Date Sep 29, 2017 at 11:53 Admission Diagnosis: (1) Schizoaffective disorder, bipolar type ICD Code: F25.0 - Schizoaffective disorder, bipolar type Brief History The patient is a 67-year-old woman, well known by this service, psychiatric history of schizoaffective disorder, multiple psychiatric hospitalizations, her last hospitalization was here at [facility] in earlier this month, domiciled with daughter, who brought in under Nino act as the patient was found lying on the floor and feces with a concern patient having inability to care for self. Patient was seen in the ER to be disheveled, with bilateral lower leg edema, multiple insect bites, malodorous, and noted to be talking to self at times. Patient with limited cooperation and poor historian as well as noted to be somewhat disorganized with concrete thought process. Patient states that she lives with her daughter and that she came by police car after her doctor called 9 1. Patient states that she was "acting differently, unusual " and then states that she wanted to get away from her daughter Corie. Patient was unable to elaborate on circumstances that brought to the hospital or currently conditions at home. Patient states she is feeling "fine" and wanted to go home she denies any perceptual disturbances but is noted to be internally preoccupied or responding to internal stimuli here in the ED. race and sports book writer discussed case with nursing staff as well as DCF representatives who reported that there have been multiple 9 1 because to her residence by neighbors as well as multiple visits by their agency as patient stopped taking her medications at home was noted to have urinated and defecated all over the house and the patient is unable to care for self. He also noted that the patient is assigned to make medical and financial decisions on behalf of her daughter Corie. Patient also was reported to be having episodes where she would lay down in the back yard screaming or in the driveway which is disturbed neighbors and with police involvement multiple times for these types of incidents. Patient this time acutely psychotic, disorganized require inpatient stabilization at this time. Rest of history difficult to obtain due to patient's current disorganization and symptomatology. The patient is a 67-year-old woman, domiciled with her daughter, single, unemployed, well known by the service, psychiatric history of schizoaffective disorder, bipolar disorder, multiple psychiatric hospitalizations, who was Nino acted this time due to inability to take care herself. Patient was consulted to me for second opinion. On psychiatric evaluation today the patient seems to be doing much better, with a bright affect , cooperative and calm. Patient reports that she feels much better today. She reports that her only complaint at this moment is that she has been constipated since Monday. She denies depressive symptoms, she denies anhedonia, helplessness, hopelessness, she denies suicidal and homicidal ideation, she denies visual and auditory hallucinations. She is fully oriented 3, at times become tangential and disorganized, but redirectable. Patient reports that she is willing to take her medications, she says that she understand how important they are in her life. No agitation, no aggressive behavior reported. Tobacco Use In Past 30 Days: No Tobacco Past 30 Days Alcohol Use: Never Hospital Course Patient was admitted in the bedside due to disorganized behavior, paranoia, tangential speech, self-neglect and behavior. Psychiatric and psychosocial assessment were initially performed. Safety measures were taken. The patient was restarted in her outpatient medications. Initially her Depakote levels were subtherapeutic. Medications were adjusted, her Depakote was increased to 750 mg twice daily, Invega 6 mg. She showed an almost immediate good response to psychotropic regimen. During the hospitalization with the exception of the first 2 days, the patient was initially calm, cooperative, pleasant. She was able to percent logical, coherent and relevant, oriented 3 to the daily follow- ups. She was compliant with her medications, no significant side effects reported. Patient was widely educated about the importance of taking her medications as prescribed every day. At the moment of discharge patient is at baseline, she denies depression, she denies anxiety, she denies mena and psychosis, she denies medication side effects. Results Blood Pressure 118 / 60 Vital Signs Date Time Temp Pulse Resp B/P (MAP) Pulse Ox O2 Delivery O2 Flow Rate FiO2 10/04/17 06:00 98.1 78 18 118/60 (79) 98 Laboratory Tests Test 10/02/17 01:00 10/03/17 07:35 10/03/17 14:32 Vancomycin Level Trough 13.8 MCG/ML (5.0-10.0) 14.7 MCG/ML (5.0-10.0) Estimat Glomerular Filtration Rate 65 ML/MIN (>89) Laboratory Results Test 09/30/17 10:51 Cholesterol Level 128 MG/DL (120-200) HDL Cholesterol 43.9 MG/DL (40.0-60.0) Hemoglobin A1c 6.2 % (4.3-6.0) LDL Cholesterol 61 MG/DL (0-99) Triglycerides Level 114 MG/DL (42-150) Valproic Acid (Depakene) Level 23 MCG/ML (50-100) Summary of Procedures None Imaging Last Impressions Lower Extremity Ultrasound 09/29/17 0000 Signed Impressions: Service Date/Time: Friday, September 29, 2017 21:33 - CONCLUSION: Normal examination. Elia Baker MD Pending results at discharge: No Medications # of Antipsychotic meds at D/C: 1 Appropriate >1 Antipsych meds?: 1 Approp Antipsych med options 1 - Minimum of three failed multiple trials of monotherapy. 2 - Documented plan to taper to monotherapy due to previous use of multiple meds OR cross-taper in progress at D/C. 3 - Documentation of augmentation of Clozapine. 4 - Justification other than those listed in allowable values 1-3, document here : Discharge Discharge Date: Oct 04, 2017 Discharge Diagnosis: (1) Schizoaffective disorder, bipolar type ICD Code: F25.0 - Schizoaffective disorder, bipolar type Status: Chronic Pt Condition on Discharge: Stable Discharge Disposition: Discharge Home Discharge Instructions Diet Instructions: Diabetic Diet Activities you can perform: Weight Bearing as Justin Scheduled Appointment: Alden Inter[facility] Appointment Date: Oct 04, 2017 Discharge Time > 30 minutes Mental Status Examination Appearance: Disheveled (Less so today) Consciousness: Alert Orientation: x4 Motor Activity: Abnormal gait Speech: Other (Loud at times) Language: Adequate Fund of Knowledge: Poor Attention and Concentration: Inadequate Memory: Unremarkable Mood: Irritable (Less so today) Affect: Labile (Less today) Thought Process & Associations: Logical, Other (concrete) Thought Content: Bizarre thinking Hallucination Type: None Delusion Type: None Suicidal Ideation: No Suicidal Plan: No Suicidal Intention: No Homicidal Ideation: No Homicidal Plan: No Homicidal Intention: No Insight: Fair Judgment: Impulsive Discharge/Advance Care Plan Health Problems: (1) Schizoaffective disorder, bipolar type Goals to promote your health * To prevent worsening of your condition and complications * To maintain your health at the optimal level Directions to meet your goals Take your medications as prescribed Follow your dietary instruction Follow activity as directed Keep your appointments as scheduled Take your immunizations and boosters as scheduled If your symptoms worsen call your PCP, if no PCP go to Urgent Care Center or Emergency Room For 30/01 questions related to your inpatient stay or results of tests pending at discharge, please contact Dr. Anatoliy Garrett at Smoking is Dangerous to Your Health. Avoid second hand smoking Anatoliy Garrett MD Oct 04, 2017 11:31
[2017-10-04 13:53] LABS: AUTOMATED NEUTROPHIL # 1.8 TH/MM3 (1.8-7.7); BASOPHIL % 1.2 % (0.0-2.0); EOSINOPHIL # 0.1 TH/MM3 (0-0.4); EOSINOPHIL % 3.7 % (0.0-4.0); HEMATOCRIT 34.4 % (35.0-46.0); HEMOGLOBIN 11.2 GM/DL (11.6-15.3); LYMPH % 17.1 % (9.0-44.0); LYMPHOCYTE # 0.5 TH/MM3 (1.0-4.8); MEAN CELL VOLUME 87.9 FL (80.0-100.0); MEAN CORPUSCULAR HEMOGLOBIN 28.7 PG (27.0-34.0); MEAN CORPUSCULAR HGB CONC 32.7 % (32.0-36.0); MONO % 14.1 % (0.0-8.0); MONOCYTE # 0.4 TH/MM3 (0-0.9); NEUT % 63.9 % (16.0-70.0); PLATELET COUNT 174 TH/MM3 (150-450); RED BLOOD COUNT 3.91 MIL/MM3 (4.00-5.30); WHITE BLOOD COUNT 2.8 TH/MM3 (4.0-11.0)
[2017-10-04 14:08] LABS: BICARBONATE 27.4 MEQ/L (21.0-32.0); CALCIUM 8.7 MG/DL (8.5-10.1); CREATININE 0.96 MG/DL (0.50-1.00)
--- NOTE | 2017-10-04 16:22 | HHI.PR ---
Subjective Remarks slept well no complaints Objective Vital Signs Date Time Temp Pulse Resp B/P (MAP) Pulse Ox O2 Delivery O2 Flow Rate FiO2 10/04/17 06:00 98.1 78 18 118/60 (79) 98 10/03/17 18:32 97.3 78 18 114/56 (75) 100 I/O 10/03/17 10/03/17 10/03/17 10/04/17 10/04/17 10/04/17 06:59 14:59 22:59 06:59 14:59 22:59 Intake Total 240 ml 720 ml 1200 ml 240 ml 2160 ml Balance 240 ml 720 ml 1200 ml 240 ml 2160 ml Intake Oral 240 ml 720 ml 1200 ml 240 ml 2160 ml # Voids 5 2 2 4 Result Diagram: 10/04/17 1305 10/04/17 1305 Procedures us lower ext 09/29 neg dvt Assessment and Plan Problem List: (1) Bipolar disorder ICD Codes: F31.9 - Bipolar disorder, unspecified Status: Acute Plan: Cont with current treatment Permanent Comment: Rule out schizoaffective disorder, bipolar type Last Edited By: Osiel Davis on May 29, 2017 12:48 (2) Cellulitis of lower extremity ICD Codes: L03.119 - Cellulitis of unspecified part of limb Plan: Lasix, Iv vancomycin dosed by Pharmacy (3) Leg edema ICD Codes: R60.0 - Localized edema Status: Acute Plan: Cont with Lasix, bmp pending this am (4) Sinus tachycardia ICD Codes: R00.0 - Tachycardia, unspecified Status: Acute Plan: Better since on Metoprolol. cont to monitor (5) Hypertension ICD Codes: I10 - Hypertension Status: Acute Plan: Controlled, has been running low, monitor for hypotension. Discharge Planning Home at Let[facility] Brunson Oct 04, 2017 16:22
== END 2017-10-04 15:25 | disposition home health service (06) | DRG 885 ==
LOC: NEDAMB 19:55 → NEDA 09-29 11:53 → H4EA 09-29 13:15
PROVIDERS: ADMIT Psychiatry & Neurology Psychiatry; ATTEND Psychiatry & Neurology Psychiatry
DX: F25.0 Schizoaffective disorder, bipolar type (principal); L03.116 Cellulitis of left lower limb; I10 Essential (primary) hypertension; E11.9 Type 2 diabetes mellitus without complications; R60.0 Localized edema; R00.0 Tachycardia, unspecified; K59.00 Constipation, unspecified; Z79.4 Long term (current) use of insulin; Z79.01 Long term (current) use of anticoagulants; Z79.899 Other long term (current) drug therapy; Z86.718 Personal history of other venous thrombosis and embolism; Z96.641 Presence of right artificial hip joint; W57.XXXA Bitten or stung by nonvenomous insect and other nonvenomous arthropods, initial encounter
CPT/HCPCS: 80048; 80053; 80061; 80164; 80202; 80307; 81001; 82565; 82948; 83036; 84443; 85025; 93005; 93970; 96372; J1630; J1815; J2060; J3370; J7050; P9612

== ENCOUNTER 2018-04-22 11:47 | Observation (INO) ==
[2018-04-22] MEDS ORDERED: Sod Chloride 0.9% Inj 1,000 ML IV.SIG SCH ×2 (12:15→13:30)
--- NOTE | 2018-04-22 12:19 | ED ---
HPI General Chief complaint: Medical Clearance Stated complaint: psych eval Time Seen by Provider: 04/22/18 11:53 Source: patient, EMS and police Mode of arrival: EMS Limitations: altered mental status History of Present Illness HPI Narrative: 67-year-old female that presents to the ED for evaluation of Mica kramer. Patient was Mica acted by police after apparently she was found walking on the street by herself. She apparently was sitting on her walker and was there for about an hour. Bystanders called police who got involved. Patient apparently has a known history of schizophrenia and mental illness. They apparently called the family member who unfortunately stated that she could not go pick her up because she was at [employer]. Because of this and because the patient was not mentally well the Mica acted here for her own safety. Patient voices no suicidal or homicidal ideation. She denies any pain. She uses a walker to ambulate. She states that she has a history of diabetes and has a history of schizophrenia. Takes medications for this. She has been here multiple times in the past for schizophrenia and psychosis. Per EVAC he does seem like she is not keeping herself well. She does appear to have some redness to her lower legs especially the left forearm. She also had a bowel movement when in route here. Per EVAC there were concerned she may have a UTI as her urine does smell very fall. Patient denies any fevers chills or sweats. Patient herself is pleasant and nonaggressive. No other medical issues. Home Medications Medication Instructions Recorded Confirmed Unable to Obtain Home Meds 04/22/18 04/22/18 Allergies Allergy/AdvReac Type Severity Reaction Status Date / Time ibuprofen Allergy Severe HIVES Verified 09/09/17 10:32 penicillin G Allergy Severe HIVES Verified 09/09/17 10:32 Sulfa (Sulfonamide Allergy Severe Hives Verified 09/09/17 10:32 Antibiotics) Review of Systems ROS: all other systems reviewed are negative [facility] Medical History Medical History Diabetes (Acute) Surgical History Surgical History History of hip replacement (Acute) Social History Social History Substance History: No History of Abuse Smoking Status: Never smoker How Often Do You Have a Drink Containing Alcohol: Never Recent Travel in [facility] within the Last 8 Weeks: No Recent Out of Country Travel within the Last 8 Weeks: No Immunization History Tetanus Immunization: Unsure Exam Narrative Exam Narrative: GENERAL: Well appearing. Not well-groomed SKIN: Focused skin assessment warm/dry. Patient does have what appears to be erythema to the lower legs bilaterally. More noticeable on the left than the right. Warm to the touch. Patient does have multiple bruising noted that appears to be old especially on the upper and lower extremities. HEAD: Atraumatic. Normocephalic. EYES: Pupils equal and round. No scleral icterus. No injection or drainage. ENT: No nasal bleeding or discharge. Mucous membranes pink and moist. Tongue is midline. No uvula deviation. NECK: Trachea midline. No JVD. CARDIOVASCULAR: Regular rate and rhythm. No murmur appreciated. RESPIRATORY: No accessory muscle use. Clear to auscultation. Breath sounds equal bilaterally. GASTROINTESTINAL: Abdomen soft, non-tender, nondistended. Hepatic and splenic margins not palpable. MUSCULOSKELETAL: No obvious deformities. No clubbing. No cyanosis. No edema. Full range of motion of the upper and lower extremities bilaterally. 2+ pulses bilaterally. Patient has an area of erythema on the left leg as well as the right leg more noticeable in the left leg. About 10 cm. NEUROLOGICAL: Awake and alert. No obvious cranial nerve deficits. Motor grossly within normal limits. Normal speech. PSYCHIATRIC: Appropriate mood and affect; insight and judgment normal. Course Initial Documented Vital Signs Temperature 99.9 F H 04/22/18 11:56 Pulse Rate 106 H 04/22/18 11:56 Respiratory Rate 20 04/22/18 11:56 Blood Pressure 119/76 04/22/18 11:56 Pulse Oximetry 95 04/22/18 11:56 Last Documented Vital Signs Temperature 99.9 F H 04/22/18 11:56 Pulse Rate 91 H 04/22/18 12:36 Respiratory Rate 20 04/22/18 12:36 Blood Pressure 113/64 04/22/18 12:36 Pulse Oximetry 97 04/22/18 12:36 Medical Decision Making [facility] Narrative Medical decision making narrative: 67-year-old female the presents to the ED for evaluation of Nino act. Patient was properly examined and was found to have signs and symptoms consistent with psychiatric illness. Unclear etiology. Labs and imaging were ordered. Patient was given IV fluids. Patient was found to be somewhat tachycardic but no fever. Labs and imaging did show what appears to be lactic acidosis. Patient does have a UTI on urine. No DVT. At this time recommendations for admission for further evaluation and treatment. Because patient does have a urinary tract infection what appears to be cellulitis of her leg at the recommend admission to medicine as she unfortunately cannot completely medically clear her for psych evaluation. Case discussed with my attending Dr. Kumar who agrees with this plan. Case discussed with Dr. Calderon agrees admission to his service. Medical Screen Exam Complete: Yes Emergency Medical Condition: Yes Differential Diagnosis Differential Diagnosis: UTI versus schizophrenia versus Nino act versus medical clearance versus cellulitis Medical Records Medical records reviewed: Yes I reviewed the patient's medical records. Lab Data Lab results reviewed: Yes I reviewed the patient's lab results. Lab results narrative: UA shows signs of UTI Result diagrams: 04/22/18 12:30 04/22/18 12:30 Lab Results 04/22/18 04/22/18 04/22/18 Range/Units 12:25 12:25 12:30 WBC 4.1 (4.0-11.0) th/mm3 RBC 3.76 L (4.00-5.30) mil/mm3 Hgb 11.0 L (11.6-15.3) gm/dL Hct 33.3 L (35.0-46.0) % MCV 88.6 (80.0-100.0) fL MCH 29.3 (27.0-34.0) pg MCHC 33.1 (32.0-36.0) % RDW 14.7 (11.6-17.2) % Plt Count 185 (150-450) th/mm3 MPV 9.2 (7.0-11.0) fL Neut % (Auto) 61.7 (16.0-70.0) % Lymph % (Auto) 19.2 (9.0-44.0) % [place] % (Auto) 17.7 H (0.0-8.0) % Eos % (Auto) 0.7 (0.0-4.0) % Baso % (Auto) 0.7 (0.0-2.0) % Neut # (Auto) 2.6 (1.8-7.7) th/mm3 Lymph # (Auto) 0.8 L (1.0-4.8) th/mm3 [place] # (Auto) 0.7 (0.0-0.9) th/mm3 Eos # (Auto) 0.0 (0.0-0.4) th/mm3 Baso # (Auto) 0.0 (0.0-0.2) th/mm3 WBC Differential . Differential Comment Auto diff final Sodium (136-145) meq/L Potassium (3.5-5.1) meq/L Chloride (98-107) meq/L Carbon Dioxide (21.0-32.0) meq/L Anion Gap (5-15) meq/L BUN (7-18) mg/dL Creatinine (0.50-1.00) mg/dL Estimated GFR (>89) mL/min Random Glucose (74-106) mg/dL Lactic Acid (0.4-2.0) mmol/L Calcium (8.5-10.1) mg/dL Total Bilirubin (0.2-1.0) mg/dL AST (15-37) U/L ALT (10-53) U/L Alkaline Phosphatase (45-117) U/L Total Protein (6.4-8.2) g/dL Albumin (3.4-5.0) g/dL TSH (0.358-3.740) uIU/mL Urine Color Alana (Yellw/Straw) Urine Clarity Hazy H (Clear) Urine pH 5.0 (5.0-8.5) Ur Specific [place] 1.029 (1.002-1.035) Urine Protein 30 H (Neg-Trace) mg/dL Urine Glucose (UA) Negative (Negative) mg/dL Urine Ketones Trace H (Negative) mg/dL Urine Occult Blood Negative (Negative) Urine Nitrate Negative (Negative) Urine Bilirubin Negative (Negative) Urine Urobilinogen 4 or greater (Less than 2) mg/dL Ur Leukocyte Esterase Small H (Negative) Urine RBC 1 (0-3) /hpf Urine WBC 24 H (0-5) /hpf Ur Squamous Epith Cells 1 (0-5) /hpf Amorphous Sediment Occasional H (None) /hpf Urine Bacteria Rare H (None) /hpf Urine Mucus Few H (Occasional) /lpf Micro UA Comment Culture indicated Ur Microscopic Review Not Reportable Urine Culture Comments Culture indicated Urine Opiates Screen Neg (Neg) Acetaminophen (10.0-30.0) mcg/mL Ur Barbiturates Screen Neg (Neg) Ur Amphetamines Screen Neg (Neg) U Benzodiazepines Scrn Neg (Neg) Urine Cocaine Screen Neg (Neg) U Cannabinoids Screen Neg (Neg) Serum Alcohol (0-5) mg/dL 04/22/18 04/22/18 Range/Units 12:30 12:30 WBC (4.0-11.0) th/mm3 RBC (4.00-5.30) mil/mm3 Hgb (11.6-15.3) gm/dL Hct (35.0-46.0) % MCV (80.0-100.0) fL MCH (27.0-34.0) pg MCHC (32.0-36.0) % RDW (11.6-17.2) % Plt Count (150-450) th/mm3 MPV (7.0-11.0) fL Neut % (Auto) (16.0-70.0) % Lymph % (Auto) (9.0-44.0) % [place] % (Auto) (0.0-8.0) % Eos % (Auto) (0.0-4.0) % Baso % (Auto) (0.0-2.0) % Neut # (Auto) (1.8-7.7) th/mm3 Lymph # (Auto) (1.0-4.8) th/mm3 [place] # (Auto) (0.0-0.9) th/mm3 Eos # (Auto) (0.0-0.4) th/mm3 Baso # (Auto) (0.0-0.2) th/mm3 WBC Differential Differential Comment Sodium 139 (136-145) meq/L Potassium 3.7 (3.5-5.1) meq/L Chloride 104 (98-107) meq/L Carbon Dioxide 23.5 (21.0-32.0) meq/L Anion Gap 12 (5-15) meq/L BUN 16 (7-18) mg/dL Creatinine 1.13 H (0.50-1.00) mg/dL Estimated GFR 48 L (>89) mL/min Random Glucose 193 H (74-106) mg/dL Lactic Acid 4.1 H* (0.4-2.0) mmol/L Calcium 8.5 (8.5-10.1) mg/dL Total Bilirubin 0.3 (0.2-1.0) mg/dL AST 36 (15-37) U/L ALT 44 (10-53) U/L Alkaline Phosphatase 59 (45-117) U/L Total Protein 7.1 (6.4-8.2) g/dL Albumin 3.0 L (3.4-5.0) g/dL TSH 1.780 (0.358-3.740) uIU/mL Urine Color (Yellw/Straw) Urine Clarity (Clear) Urine pH (5.0-8.5) Ur Specific Happy (1.002-1.035) Urine Protein (Neg-Trace) mg/dL Urine Glucose (UA) (Negative) mg/dL Urine Ketones (Negative) mg/dL Urine Occult Blood (Negative) Urine Nitrate (Negative) Urine Bilirubin (Negative) Urine Urobilinogen (Less than 2) mg/dL Ur Leukocyte Esterase (Negative) Urine RBC (0-3) /hpf Urine WBC (0-5) /hpf Ur Squamous Epith Cells (0-5) /hpf Amorphous Sediment (None) /hpf Urine Bacteria (None) /hpf Urine Mucus (Occasional) /lpf Micro UA Comment Ur Microscopic Review Urine Culture Comments Urine Opiates Screen (Neg) Acetaminophen Less than 2.0 L (10.0-30.0) mcg/mL Ur Barbiturates Screen (Neg) Ur Amphetamines Screen (Neg) U Benzodiazepines Scrn (Neg) Urine Cocaine Screen (Neg) U Cannabinoids Screen (Neg) Serum Alcohol Less than 3 (0-5) mg/dL Imaging Data Attestation: I personally reviewed and interpreted this imaging study as follows : Radiologist's impression: Venous Doppler Study 04/22/18 12:06 CONCLUSION: 1. The study is negative for bilateral lower extremity deep venous thrombosis. Discharge Plan Discharge Disposition Patient Disposition: 30 Still Patient Discharge Details Diagnosis: Schizophrenia, Cystitis, Cellulitis Physicians Team ED Provider: Reji Kumar ED Midlevel Provider: Kojo Hobbs Primary Care Provider: Abdoulaye Barclay Attending Provider: Alexander Root Other Providers: Anatoliy Garrett Discharge Interventions Interventions: Vital Signs Last Done: 04/22/18 12:36 Status ED Status: Admitted Observation Patient
[2018-04-22 12:53] LABS: Baso % (Auto) 0.7 % (0.0-2.0); Eos % (Auto) 0.7 % (0.0-4.0); Hematocrit 33.3 % (35.0-46.0); Lymph # (Auto) 0.8 th/mm3 (1.0-4.8); Lymph % (Auto) 19.2 % (9.0-44.0); Mean Corpuscular HGB Conc 33.1 % (32.0-36.0); Mean Corpuscular Hemoglobin 29.3 pg (27.0-34.0); Mean Corpuscular Volume 88.6 fL (80.0-100.0); Mean Platelet Volume 9.2 fL (7.0-11.0); Mono # (Auto) 0.7 th/mm3 (0.0-0.9); Mono % (Auto) 17.7 % (0.0-8.0); Neut # (Auto) 2.6 th/mm3 (1.8-7.7); Neut % (Auto) 61.7 % (16.0-70.0); Platelet Count 185 th/mm3 (150-450); Red Blood Count 3.76 mil/mm3 (4.00-5.30); Red Cell Distribution Width 14.7 % (11.6-17.2); White Blood Count 4.1 th/mm3 (4.0-11.0)
[2018-04-22 12:57] LABS: Amorphous Sediment,Urine Occasional /hpf; Bacteria,Urine Rare /hpf; Bilirubin,Urine Negative (Negative); Clarity,Urine Hazy (Clear); Color,Urine Amber (Yellw/Straw); Glucose,Urine (UA) Negative (Negative); Leukocyte Esterase,Urine Small (Negative); Mucus,Urine Few /lpf (Occasional); Nitrite,Urine Negative (Negative); Specific Gravity,Urine 1.029 (1.002-1.035); Squamous Epithelial Cell,Urine 1 /hpf (0-5); Urobilinogen,Urine 4 or Greater mg/dL (Less than 2)
[2018-04-22 12:58] LABS: Amphetamine Screen,Urine Neg (Neg); Barbiturate Screen,Urine Neg (Neg); Cannabinoid Screen,Urine Neg (Neg); Cocaine Screen,Urine Neg (Neg)
[2018-04-22 12:59] LABS: Opiate Screen,Urine Neg (Neg)
[2018-04-22 13:08] LABS: Alanine Aminotransferase 44 U/L (10-53); Anion Gap 12 meq/L (5-15); Aspartate Aminotransferase 36 U/L (15-37); Blood Urea Nitrogen 16 mg/dL (7-18); Calcium 8.5 mg/dL (8.5-10.1); Carbon Dioxide 23.5 meq/L (21.0-32.0); Chloride 104 meq/L (98-107); Glomerular Filtration Rate 48 mL/min (>89); Glucose,Random 193 mg/dL (74-106); Potassium 3.7 meq/L (3.5-5.1); Sodium 139 meq/L (136-145)
[2018-04-22 13:19] LABS: Alkaline Phosphatase 59 U/L (45-117); Total Protein 7.1 g/dL (6.4-8.2)
--- NOTE | 2018-04-22 13:30 | US ---
EXAM DATE: 04/22/2018 12:06 PM EDT AGE/SEX: 67 years / Female INDICATIONS: Bilateral leg swelling. CLINICAL DATA: This is the patient's initial encounter. Patient reports that signs and symptoms have been present for 4 - 6 days and indicates a pain score of 2/10. MEDICAL/SURGICAL HISTORY: Diabetes. . Hip [place]. [place] [facility] [place]PL[place]/29/2017. . TECHNIQUE: Venous ultrasound of both lower extremities was performed from the inguinal ligament to t he proximal calf. Real-time, color Doppler and spectral tracing, compression and augmentation techni ques were used. FINDINGS: Right Leg: Normal compression of the deep venous system from the inguinal region to the proximal leeanna f. No echogenic clot is seen. Normal response of the venous system to augmentation and respiration. Left Leg: Normal compression of the deep venous system from the inguinal region to the proximal calf . No echogenic clot is seen. Normal response of the venous system to augmentation and respiration. Other: None. CONCLUSION: 1. The study is negative for bilateral lower extremity deep venous thrombosis. Electronically signed by: Carl Renteria MD 04/22/2018 1:29 PM EDT
[2018-04-22] MEDS ORDERED: Clindamycin 600 mg/NS Premix 600 MG/50 ML PIGGYBACK IV.SIG ONE (13:31)
[2018-04-22] MEDS ORDERED: Acetaminophen 325 MG Tablet PO PRN (13:53)
[2018-04-22] MEDS ORDERED: Vancomycin Consult Pharmacy OTHER PRN (14:34)
[2018-04-22] MEDS ORDERED: Dextrose 50% in Water 50 ML Vial IV.PUSH PRN (14:34)
--- NOTE | 2018-04-22 14:52 | P.HPIM ---
History of Present Illness Primary Care Physician: Abdoulaye Barclay DO Chief Complaint: Nino Act History of Present Illness: The patient is a 67-year-old female with past medical history of bipolar disorder who is presenting to the hospital under a Nino act. The patient says she woke up earlier than her daughter today, took a shower and went for a walk. She said she was going to [employer] to pickle sorter Xarelto 20 mg daily. She says at that point she was found by an ambulance and brought to the hospital. She is unsure why she is under a Nino act. She said maybe she does not look decent to be outside in society. She denies any symptoms of a UTI. She denies any fevers. She says she is thirsty. She says she tries to take a shower daily. She currently has no acute complaints. Review of Systems All other systems reviewed negative except as stated in HPI PMFSH - History History Provided By: Patient - Medical History Medical History: Medical History (Last Updated 04/22/18 @ 14:43 by Alexander Root DO) Bipolar disorder DVT (deep venous thrombosis) Diabetes - Surgical History Surgical History: Surgical History (Last Reviewed 04/22/18 @ 14:43 by Alexander Root DO) History of hip replacement - Family History Family History: Family History (Last Updated 04/22/18 @ 14:43 by Alexander Root DO) Other CVA (cerebral vascular accident) Diabetes - Social History I have reviewed the patient's Social History: Yes - Tobacco History Second Hand Smoke Exposure: No Tobacco Use In Past 30 Days: No Smoking Status: Never smoker - Alcohol History How Often Do You Have a Drink Containing Alcohol: Never - Substance Use History Substance History: No History of Abuse - Travel History Recent Travel in the [place] Within the Last 8 Weeks: No Recent Travel Out of the Country Within the Last 8 Weeks: No - Immunization History Tetanus Immunization: Unsure Medications and Allergies Active Medications: Active Medications Acetaminophen (Tylenol) 650 mg PO Q4H PRN PRN Reason: Temp > 100.4, pain 1-2 Dextrose (D50w Vial) 50 ml IV.PUSH UNSCH PRN PRN Reason: PER HYPOGLYCEMIA PROTOCOL Glucagon (Glucagon Inj) 1 mg OTHER PRN PRN PRN Reason: for Hypoglycemia Protocol Sodium Chloride (Ns Inj) 1,000 mls @ 0 mls/hr IV.SIG BOLUS DORITA Last Infusion: 04/22/18 13:31 Dose: Infused Sodium Chloride (Ns Inj) 1,000 mls @ 0 mls/hr IV.SIG BOLUS DORITA Last Infusion: 04/22/18 14:39 Dose: Infused Sodium Chloride (Ns Inj) 1,000 mls @ 100 mls/hr IV.CONT .Q10H DORITA Insulin Aspart (Novolog Insulin Correctional Sugar Inj) 0 unit SQ ACHS DORITA; Protocol Pharmacy Profile Note (Vancomycin Consult Pharmacy) 1 each OTHER UNSCH PRN PRN Reason: Pharmacy to dose Allergies Allergy/AdvReac Type Severity Reaction Status Date / Time ibuprofen Allergy Severe HIVES Verified 09/09/17 10:32 penicillin G Allergy Severe HIVES Verified 09/09/17 10:32 Sulfa (Sulfonamide Allergy Severe Hives Verified 09/09/17 10:32 Antibiotics) Home Medications Medication Instructions Recorded Confirmed Type Unable to Obtain Home Meds 04/22/18 04/22/18 History Exam Vital signs: Vital Signs 04/22/18 11:56 04/22/18 12:36 Temperature 99.9 F H Pulse Rate 106 H 91 H Respiratory Rate 20 20 Blood Pressure 119/76 113/64 Pulse Oximetry 95 97 Intake & Output 04/21/18 04/22/18 04/22/18 18:59 06:59 18:59 Intake Total 2099 Balance 2099 Weight 72.575 kg Intake: IV 2099 NS Inj 1,000 ML @ Wide Open IV. 1999 SIG BOLUS DORITA Rx#:[id number] Rocephin Inj 1,000 MG In NS Inj 100 / 100 100 ML @ 200 mls/hr IV.SIG ONCE ONE Rx#:[id number] Narrative: GENERAL: No distress. SKIN: Focused skin assessment warm/dry. Patient does have erythema on her LLE. HEAD: Atraumatic. Normocephalic. EYES: Pupils equal and round. No scleral icterus. No injection or drainage. ENT: No nasal bleeding or discharge. Mucous membranes pink and moist. Tongue is midline. No uvula deviation. NECK: Trachea midline. No JVD. CARDIOVASCULAR: Regular rate and rhythm. No murmur appreciated. RESPIRATORY: No accessory muscle use. Clear to auscultation. Breath sounds equal bilaterally. GASTROINTESTINAL: Abdomen soft, non-tender, nondistended. Hepatic and splenic margins not palpable. MUSCULOSKELETAL: No obvious deformities. No clubbing. No cyanosis. Lower extremity edema noted. NEUROLOGICAL: Awake and alert. No obvious cranial nerve deficits. Motor grossly within normal limits. Normal speech. Results - Labs CBC & Chem 7: 04/22/18 12:30 04/22/18 12:30 Labs: Short CBC 04/22/18 Range/Units 12:30 WBC 4.1 (4.0-11.0) th/mm3 Hgb 11.0 L (11.6-15.3) gm/dL Hct 33.3 L (35.0-46.0) % Plt Count 185 (150-450) th/mm3 BMP 04/22/18 12:30 Sodium 139 Potassium 3.7 Chloride 104 Carbon Dioxide 23.5 BUN 16 Creatinine 1.13 H Calcium 8.5 Liver Function 04/22/18 Range/Units 12:30 Total Bilirubin 0.3 (0.2-1.0) mg/dL AST 36 (15-37) U/L ALT 44 (10-53) U/L Alkaline Phosphatase 59 (45-117) U/L Albumin 3.0 L (3.4-5.0) g/dL Urine 04/22/18 Range/Units 12:25 Urine Color Alana (Yellw/Straw) Urine Clarity Hazy H (Clear) Urine pH 5.0 (5.0-8.5) Ur Specific [place] 1.029 (1.002-1.035) Urine Protein 30 H (Neg-Trace) mg/dL Urine Glucose (UA) Negative (Negative) mg/dL - Imaging Impressions Venous Doppler Study 04/22/18 12:06 CONCLUSION: 1. The study is negative for bilateral lower extremity deep venous thrombosis. Caprini VTE Risk Assessment Caprini VTE Risk Assessment: Moderate/High Risk (score >= 2) Caprini Risk Assessment Model: Point Value = 1 Point Value = 2 Point Value = 3 Point Value = 5 Age 41-60 Minor surgery BMI > 25 kg/m2 Swollen legs Varicose veins or History of unexplained or recurrent spontaneous Oral contraceptives or hormone replacement Sepsis (< 1 month) Serious lung disease, including pneumonia (< 1 month) Abnormal pulmonary function Acute myocardial infarction Congestive heart failure (< 1 month) History of inflammatory bowel disease Medical patient at bed rest Age 61-74 Arthroscopic surgery Major open surgery (> 45 min) Laparoscopic surgery (> 45 min) Malignancy Confined to bed (> 72 hours) Immobilizing plaster cast Central venous access Age >= 75 History of VTE Family history of VTE Factor V Leiden Prothrombin [id number] Lupus anticoagulant Anticardiolipin antibodies Elevated serum homocysteine Heparin-induced thrombocytopenia Other congenital or acquired thrombophilia Stroke (< 1 month) Elective arthroplasty Hip, pelvis, or leg fracture Acute spinal cord injury (< 1 month) Prophylaxis Regimen: Total Risk Factor Score Risk Level Prophylaxis Regimen 0-1 Low Early ambulation 2 Moderate Order ONE of the following: *Sequential Compression Device (SCD) *Heparin 5000 units SQ BID 3-4 Higher Order ONE of the following medications: *Heparin 5000 units SQ TID *Enoxaparin/Lovenox 40 mg SQ daily (WT < 150 kg, CrCl > 30 mL/min) *Enoxaparin/Lovenox 30 mg SQ daily (WT < 150 kg, CrCl > 10-29 mL/min) *Enoxaparin/Lovenox 30 mg SQ BID (WT < 150 kg, CrCl > 30 mL/min) AND/OR *Sequential Compression Device (SCD) 5 or more Highest Order ONE of the following medications: *Heparin 5000 units SQ TID (Preferred with Epidurals) *Enoxaparin/Lovenox 40 mg SQ daily (WT < 150 kg, CrCl > 30 mL/min) *Enoxaparin/Lovenox 30 mg SQ daily (WT < 150 kg, CrCl > 10-29 mL/min) *Enoxaparin/Lovenox 30 mg SQ BID (WT < 150 kg, CrCl > 30 mL/min) AND *Sequential Compression Device (SCD) Assessment and Plan - Plan Bipolar disorder The pt presents under a Nino Act. -psychiatry consult pending. Left leg cellulitis/ UTI/ Sepsis Leg with warmth, redness and edema. Patient has a history of DVT, though US in September was negative. UA also indicative of infection. Had elevated HR and fever. -Stat patient on IV vancomycin for cellulitis and IV Cipro for UTI. -IVFs. -Monitor leg swelling and erythema. Consider repeat US. -follow urine and blood cultures. Acute renal insufficiency Likely prerenal. -monitor on IVFs. -avoid nephrotoxins. DM Glucose has been elevated. -Diabetic diet. -Accu-checks with ISS. Medication noncompliance Currently unsure which medications the patient is on. -requested nursing to reconcile meds. -call pharmacy if needed. DVT prophylaxis- continue Xarelto
[2018-04-22] MEDS: Sod Chloride 0.9% Inj 1,000 ML IV.CONT SCH (15:47)
[2018-04-22] MEDS ORDERED: Vancomycin Inj 1,250 MG in Sodium Chlor 0.9% Inj 250 ML IV.SIG SCH (17:00)
[2018-04-22] MEDS: Heparin - SQ 10,000 UNITS/ML Vial SQ SCH (17:41)
[2018-04-22] MEDS: Insulin NovoLOG Aspart Correctional Sugar Inj SQ SCH ×2 (17:42→20:23)
[2018-04-23] MEDS: Sod Chloride 0.9% Inj 1,000 ML IV.CONT SCH ×3 (01:39→17:14)
[2018-04-23] MEDS: Heparin - SQ 10,000 UNITS/ML Vial SQ SCH ×3 (01:40→17:21)
[2018-04-23 06:05] LABS: Baso % (Auto) 0.8 % (0.0-2.0); Hematocrit 32.2 % (35.0-46.0); Hemoglobin 10.9 gm/dL (11.6-15.3); Lymph # (Auto) 1.2 th/mm3 (1.0-4.8); Lymph % (Auto) 30.7 % (9.0-44.0); Mean Corpuscular HGB Conc 33.7 % (32.0-36.0); Mean Corpuscular Hemoglobin 29.3 pg (27.0-34.0); Mean Platelet Volume 9.8 fL (7.0-11.0); Mono # (Auto) 0.7 th/mm3 (0.0-0.9); Mono % (Auto) 17.2 % (0.0-8.0); Neut % (Auto) 50.3 % (16.0-70.0); Platelet Count 173 th/mm3 (150-450); Red Cell Distribution Width 14.6 % (11.6-17.2); White Blood Count 3.9 th/mm3 (4.0-11.0)
[2018-04-23 06:29] LABS: Alanine Aminotransferase 35 U/L (10-53); Albumin 2.6 g/dL (3.4-5.0); Alkaline Phosphatase 53 U/L (45-117); Anion Gap 8 meq/L (5-15); Aspartate Aminotransferase 26 U/L (15-37); Blood Urea Nitrogen 10 mg/dL (7-18); Calcium 8.1 mg/dL (8.5-10.1); Carbon Dioxide 25.2 meq/L (21.0-32.0); Chloride 112 meq/L (98-107); Glomerular Filtration Rate 85 mL/min (>89); Glucose,Random 94 mg/dL (74-106); Potassium 3.8 meq/L (3.5-5.1); Sodium 145 meq/L (136-145); Total Protein 6.3 g/dL (6.4-8.2)
[2018-04-23 07:17] VITALS: RESP 18
[2018-04-23] MEDS: Insulin NovoLOG Aspart Correctional Sugar Inj SQ SCH ×3 (08:35→17:23)
[2018-04-23] MEDS ORDERED: Ciprofloxacin 400 MG/200 ML 400 MG/200 ML PIGGYBACK IV.SIG SCH (09:00)
--- NOTE | 2018-04-23 09:57 | P.DS ---
Date of admission: 04/22/18 14:09 Primary care physician: Abdoulaye Barclay DO Attending physician on discharge: Hansa Chen Anticipated date of discharge: 04/23/18 Brief History from admission: The patient is a 67-year-old female with past medical history of bipolar disorder who is presenting to the hospital under a Nino act. The patient says she woke up earlier than her daughter today, took a shower and went for a walk. She said she was going to [place] to chart picker Xarelto 20 mg daily. She says at that point she was found by an ambulance and brought to the hospital. She is unsure why she is under a Nino act. She said maybe she does not look decent to be outside in society. She denies any symptoms of a UTI. She denies any fevers. She says she is thirsty. She says she tries to take a shower daily. She currently has no acute complaints. Patient update on day of discharge: Pt with pressured speech and apparently yelling out random words per nursing. Pt states LLE has been red "forever." She is a poor historian and cannot tell me any details about the cellulitis on her leg. She smells of urine. She denies dysuria, urgency, hesitancy, or frequency. She reports she wants to go home. She denies SI/HI. She denies CP, SOB, fever, or chills. DS: Diagnosis - Discharge Diagnosis (1) Cystitis Status: Acute (2) Left leg cellulitis Status: Acute DS: Medications - Discharge Medications Prescriptions: ciprofloxacin HCl 250 mg PO Q12HR #10 tab clindamycin HCl [Cleocin HCl] 300 mg PO Q6HR #28 cap DS: Summary Hospital Course: 67-year-old female with past medical history of bipolar disorder and diabetes admitted on 04/22 as a Nino Act after police found her walking around outside. She was apparently just going to the pharmacy and she was unsure of why she was Nino Acted. She was found to have LLE cellulitis and evidence of a UTI based on urinalysis. Because her lactic acid was elevated she was started on IV vancomycin. Her lactic acid went from 4.1 to 1.0 in about two hours. She had no leukocytosis or fever. She was also treated with IV cipro for UTI. Antibiotics were transitioned to PO Clindamycin and Cipro. Psychiatry was consulted who did not lift the Nino Act. She was discharged to inpatient psych on 04/23. Recommended antibiotics: Clindamycin 300 mg PO Q6H x 7 days and Cipro 250 mg po Q12 x 5 days - Time Spent with Patient Total time spent providing and/or coordinating discharge services: Less than 30 minutes - Quality: VTE Deep Vein Thrombosis/Pulmonary Embolism Present on Admission: No Exam Vital signs: Vital Signs 04/22/18 11:56 04/22/18 12:36 04/22/18 13:54 Temperature 99.9 F H 98.2 F Pulse Rate 106 H 91 H 83 Respiratory Rate 20 20 15 Blood Pressure 119/76 113/64 123/59 L Pulse Oximetry 95 97 97 04/22/18 16:02 04/22/18 17:56 04/22/18 20:00 Temperature 97.8 F 98.2 F Pulse Rate 87 90 84 Respiratory Rate 18 16 16 Blood Pressure 110/63 104/62 Pulse Oximetry 99 99 96 04/22/18 20:43 04/23/18 00:00 04/23/18 03:42 Temperature 98.1 F Pulse Rate 79 97 H 84 Respiratory Rate 16 16 Blood Pressure 116/71 111/64 Pulse Oximetry 96 97 04/23/18 07:16 Temperature 98.5 F Pulse Rate 80 Respiratory Rate 18 Blood Pressure 125/75 Pulse Oximetry 98 Intake & Output 04/22/18 04/23/18 04/23/18 18:59 06:59 18:59 Intake Total 2150 / 2150 1502.5 / 1502.5 200 / 200 Balance 2150 / 2150 1502.5 / 1502.5 200 / 200 Weight 72.575 kg Intake: IV 2150 / 2150 1262.5 / 1262.5 200 / 200 NS Inj 1,000 ML @ 100 mls/hr IV 1000 / 1000 .CONT .Q10H [facility] Rx#:[id number] Cipro 400 MG/200 ML Inj 400 mg 200 / 200 In 200 ml @ 200 mls/hr IV.SIG Q12H [facility] Rx#:[id number] Cleocin 600 mg/NS Premix 600 mg 50 / 50 In 50 ml @ 100 mls/hr IV.SIG ONCE ONE Rx#:[id number] NS Inj 1,000 ML @ Wide Open IV. 1999 SIG BOLUS [facility] Rx#:[id number] Vancomycin Inj 1,250 MG In NS 262.5 / 262.5 Inj 250 ML @ 250 mls/hr IV.SIG Q24H [facility] Rx#:[id number] Rocephin Inj 1,000 MG In NS Inj 100 / 100 100 ML @ 200 mls/hr IV.SIG ONCE ONE Rx#:[id number] Oral 240 / 240 Other: # Voids 1 3 # Incontinent Voids 1 1 Date of Last Bowel Movement 04/22/18 Narrative: GENERAL: Disheveled, malodorous female sitting up in chair in NAD. Smells strongly of urine. SKIN: Warm and dry. HEENT: AT/NC. Pupils equal and round. MMM. HEART: RRR no m/r/g. LUNGS: CTAB without wheezes or crackles. ABDOMEN: +BS, soft, NT, ND. EXTREMITIES: LLE with erythema, warmth, and some swelling from midshin to proximal foot. No purulent drainage or associated wounds. Examined both feet with no wounds or ulcers. R Charcot foot deformity. NEURO: Awake and alert. PSYCH: Pressured speech. Results Procedures completed during hospitalization: None Labs on day of discharge: Labs from last 24 hours 04/23/18 04/23/18 04/23/18 08:27 03:40 03:40 WBC 3.9 L RBC 3.70 L Hgb 10.9 L Hct 32.2 L MCV 87.0 MCH 29.3 MCHC 33.7 RDW 14.6 Plt Count 173 MPV 9.8 Neut % (Auto) 50.3 Lymph % (Auto) 30.7 [place] % (Auto) 17.2 H Eos % (Auto) 1.0 Baso % (Auto) 0.8 Neut # (Auto) 2.0 Lymph # (Auto) 1.2 [place] # (Auto) 0.7 Eos # (Auto) 0.0 Baso # (Auto) 0.0 WBC Differential . Differential Comment Auto diff final Sodium 145 Potassium 3.8 Chloride 112 H D Carbon Dioxide 25.2 Anion Gap 8 BUN 10 Creatinine 0.69 Estimated GFR 85 L POC Glucose 135 H Random Glucose 94 Lactic Acid Calcium 8.1 L Total Bilirubin 0.4 AST 26 ALT 35 Alkaline Phosphatase 53 Total Protein 6.3 L D Albumin 2.6 L TSH Urine Color Urine Clarity Urine pH Ur Specific [place] Urine Protein Urine Glucose (UA) Urine Ketones Urine Occult Blood Urine Nitrate Urine Bilirubin Urine Urobilinogen Ur Leukocyte Esterase Urine RBC Urine WBC Ur Squamous Epith Cells Amorphous Sediment Urine Bacteria Urine Mucus Micro UA Comment Ur Microscopic Review Urine Culture Comments Urine Opiates Screen Acetaminophen Ur Barbiturates Screen Ur Amphetamines Screen U Benzodiazepines Scrn Urine Cocaine Screen U Cannabinoids Screen Serum Alcohol 04/22/18 04/22/18 04/22/18 20:19 15:50 14:45 WBC RBC Hgb Hct MCV MCH MCHC RDW Plt Count MPV Neut % (Auto) Lymph % (Auto) [place] % (Auto) Eos % (Auto) Baso % (Auto) Neut # (Auto) Lymph # (Auto) [place] # (Auto) Eos # (Auto) Baso # (Auto) WBC Differential Differential Comment Sodium Potassium Chloride Carbon Dioxide Anion Gap BUN Creatinine Estimated GFR POC Glucose 114 H 116 H Random Glucose Lactic Acid 1.0 Calcium Total Bilirubin AST ALT Alkaline Phosphatase Total Protein Albumin TSH Urine Color Urine Clarity Urine pH Ur Specific [place] Urine Protein Urine Glucose (UA) Urine Ketones Urine Occult Blood Urine Nitrate Urine Bilirubin Urine Urobilinogen Ur Leukocyte Esterase Urine RBC Urine WBC Ur Squamous Epith Cells Amorphous Sediment Urine Bacteria Urine Mucus Micro UA Comment Ur Microscopic Review Urine Culture Comments Urine Opiates Screen Acetaminophen Ur Barbiturates Screen Ur Amphetamines Screen U Benzodiazepines Scrn Urine Cocaine Screen U Cannabinoids Screen Serum Alcohol 04/22/18 04/22/18 04/22/18 12:30 12:30 12:30 WBC 4.1 RBC 3.76 L Hgb 11.0 L Hct 33.3 L MCV 88.6 MCH 29.3 MCHC 33.1 RDW 14.7 Plt Count 185 MPV 9.2 Neut % (Auto) 61.7 Lymph % (Auto) 19.2 [place] % (Auto) 17.7 H Eos % (Auto) 0.7 Baso % (Auto) 0.7 Neut # (Auto) 2.6 Lymph # (Auto) 0.8 L [place] # (Auto) 0.7 Eos # (Auto) 0.0 Baso # (Auto) 0.0 WBC Differential . Differential Comment Auto diff final Sodium 139 Potassium 3.7 Chloride 104 Carbon Dioxide 23.5 Anion Gap 12 BUN 16 Creatinine 1.13 H Estimated GFR 48 L POC Glucose Random Glucose 193 H Lactic Acid 4.1 H* Calcium 8.5 Total Bilirubin 0.3 AST 36 ALT 44 Alkaline Phosphatase 59 Total Protein 7.1 Albumin 3.0 L TSH 1.780 Urine Color Urine Clarity Urine pH Ur Specific [place] Urine Protein Urine Glucose (UA) Urine Ketones Urine Occult Blood Urine Nitrate Urine Bilirubin Urine Urobilinogen Ur Leukocyte Esterase Urine RBC Urine WBC Ur Squamous Epith Cells Amorphous Sediment Urine Bacteria Urine Mucus Micro UA Comment Ur Microscopic Review Urine Culture Comments Urine Opiates Screen Acetaminophen Less than 2.0 L Ur Barbiturates Screen Ur Amphetamines Screen U Benzodiazepines Scrn Urine Cocaine Screen U Cannabinoids Screen Serum Alcohol Less than 3 04/22/18 04/22/18 12:25 12:25 WBC RBC Hgb Hct MCV MCH MCHC RDW Plt Count MPV Neut % (Auto) Lymph % (Auto) [place] % (Auto) Eos % (Auto) Baso % (Auto) Neut # (Auto) Lymph # (Auto) [place] # (Auto) Eos # (Auto) Baso # (Auto) WBC Differential Differential Comment Sodium Potassium Chloride Carbon Dioxide Anion Gap BUN Creatinine Estimated GFR POC Glucose Random Glucose Lactic Acid Calcium Total Bilirubin AST ALT Alkaline Phosphatase Total Protein Albumin TSH Urine Color [place] Urine Clarity Hazy H Urine pH 5.0 Ur Specific [place] 1.029 Urine Protein 30 H Urine Glucose (UA) Negative Urine Ketones Trace H Urine Occult Blood Negative Urine Nitrate Negative Urine Bilirubin Negative Urine Urobilinogen 4 or greater Ur Leukocyte Esterase Small H Urine RBC 1 Urine WBC 24 H Ur Squamous Epith Cells 1 Amorphous Sediment Occasional H Urine Bacteria Rare H Urine Mucus Few H Micro UA Comment Culture indicated Ur Microscopic Review Not Reportable Urine Culture Comments Culture indicated Urine Opiates Screen Neg Acetaminophen Ur Barbiturates Screen Neg Ur Amphetamines Screen Neg U Benzodiazepines Scrn Neg Urine Cocaine Screen Neg U Cannabinoids Screen Neg Serum Alcohol - Impressions ITS Impressions Venous Doppler Study 04/22/18 12:06 CONCLUSION: 1. The study is negative for bilateral lower extremity deep venous thrombosis. Discharge Plan - Discharge Disposition Patient Disposition: 64 Disc To [facility] Facility - Discharge Condition Condition: Stable - Discharge Order Discharge Orders: Discharge Order (Routine); Ordered 04/23/18 Ordered By: Hansa Chen - Discharge Details Anticipated Discharge Date: 04/23/18 - Physicians Team Primary Care Provider: Abdoulaye Barclay Attending Provider: Hansa Chen Other Providers: Anatoliy Garrett MD
[2018-04-23] MEDS ORDERED: Rivaroxaban 20 MG Tablet PO SCH (11:00)
[2018-04-23] MEDS ORDERED: Divalproex 250 MG DR Tablet PO SCH (11:00)
[2018-04-23 12:38] VITALS: BP 122/65; PULSE 74; TEMP 98.4; O2SAT 100
--- NOTE | 2018-04-23 16:46 | P.PN ---
Subjective Interval history: Pt with pressured speech and apparently yelling out random words per nursing. Pt states LLE has been red "forever." She is a poor historian and cannot tell me any details about the cellulitis on her leg. She smells of urine. She denies dysuria, urgency, hesitancy, or frequency. She reports she wants to go home. She denies SI/HI or auditory/visual hallucinations. She denies CP, SOB, fever, or chills. She has a collection of around 10 juice bottles around her that she states she is hanging on to to recycle. Physical Exam Vital signs: Vital Signs 04/22/18 17:56 04/22/18 20:00 04/22/18 20:43 Temperature 97.8 F 98.2 F Pulse Rate 90 84 79 Respiratory Rate 16 16 Blood Pressure 110/63 104/62 Pulse Oximetry 99 96 04/23/18 00:00 04/23/18 03:42 04/23/18 07:16 Temperature 98.1 F 98.5 F Pulse Rate 97 H 84 80 Respiratory Rate 16 16 18 Blood Pressure 116/71 111/64 125/75 Pulse Oximetry 96 97 98 04/23/18 08:30 04/23/18 12:00 Temperature 98.4 F Pulse Rate 67 74 Respiratory Rate 18 Blood Pressure 122/65 Pulse Oximetry 100 Intake & Output 04/22/18 04/23/18 04/23/18 18:59 06:59 18:59 Intake Total 2150 / 2150 1502.5 / 1502.5 200 / 200 Balance 2150 / 2150 1502.5 / 1502.5 200 / 200 Weight 72.575 kg Intake: IV 2150 / 2150 1262.5 / 1262.5 200 / 200 NS Inj 1,000 ML @ 100 mls/hr IV 1000 / 1000 .CONT .Q10H [facility] Rx#:[id number] Cipro 400 MG/200 ML Inj 400 mg 200 / 200 In 200 ml @ 200 mls/hr IV.SIG Q12H [facility] Rx#:[id number] Cleocin 600 mg/NS Premix 600 mg 50 / 50 In 50 ml @ 100 mls/hr IV.SIG ONCE ONE Rx#:[id number] NS Inj 1,000 ML @ Wide Open IV. 1999 SIG BOLUS [facility] Rx#:[id number] Vancomycin Inj 1,250 MG In NS 262.5 / 262.5 Inj 250 ML @ 250 mls/hr IV.SIG Q24H [facility] Rx#:[id number] Rocephin Inj 1,000 MG In NS Inj 100 / 100 100 ML @ 200 mls/hr IV.SIG ONCE ONE Rx#:[id number] Oral 240 / 240 Other: # Voids 1 3 # Incontinent Voids 1 1 Date of Last Bowel Movement 04/22/18 04/22/18 Narrative: GENERAL: Disheveled, malodorous female sitting up in chair in NAD. Smells strongly of urine. SKIN: Warm and dry. HEENT: AT/NC. Pupils equal and round. MMM. HEART: RRR no m/r/g. LUNGS: CTAB without wheezes or crackles. ABDOMEN: +BS, soft, NT, ND. EXTREMITIES: LLE with erythema, warmth, and some swelling from midshin to proximal foot. No purulent drainage or associated wounds. Examined both feet with no wounds or ulcers. R Charcot foot deformity. NEURO: Awake and alert. PSYCH: Pressured speech. Eccentric. - Urinary Catheter Management Straight Cath placed during this visit: yes, but has since been removed by the nurse Reason for continuing: Not indwelling catheter Insertion date: 04/22/18 Insertion time: 12:20 Removal date: 04/22/18 Removal time: 12:26 Results - Labs CBC & Chem 7: 04/23/18 03:40 04/23/18 03:40 Laboratory Results - last 24 hr 04/22/18 04/23/18 04/23/18 20:19 03:40 03:40 WBC 3.9 L RBC 3.70 L Hgb 10.9 L Hct 32.2 L MCV 87.0 MCH 29.3 MCHC 33.7 RDW 14.6 Plt Count 173 MPV 9.8 Neut % (Auto) 50.3 Lymph % (Auto) 30.7 [place] % (Auto) 17.2 H Eos % (Auto) 1.0 Baso % (Auto) 0.8 Neut # (Auto) 2.0 Lymph # (Auto) 1.2 [place] # (Auto) 0.7 Eos # (Auto) 0.0 Baso # (Auto) 0.0 WBC Differential . Differential Comment Auto diff final Sodium 145 Potassium 3.8 Chloride 112 H D Carbon Dioxide 25.2 Anion Gap 8 BUN 10 Creatinine 0.69 Estimated GFR 85 L POC Glucose 114 H Random Glucose 94 Calcium 8.1 L Total Bilirubin 0.4 AST 26 ALT 35 Alkaline Phosphatase 53 Total Protein 6.3 L D Albumin 2.6 L 04/23/18 04/23/18 08:27 11:55 WBC RBC Hgb Hct MCV MCH MCHC RDW Plt Count MPV Neut % (Auto) Lymph % (Auto) [place] % (Auto) Eos % (Auto) Baso % (Auto) Neut # (Auto) Lymph # (Auto) [place] # (Auto) Eos # (Auto) Baso # (Auto) WBC Differential Differential Comment Sodium Potassium Chloride Carbon Dioxide Anion Gap BUN Creatinine Estimated GFR POC Glucose 135 H 144 H Random Glucose Calcium Total Bilirubin AST ALT Alkaline Phosphatase Total Protein Albumin Microbiology 04/22/18 12:25 Clean Catch Urine Urine Culture - Preliminary Immature growth - reincubate 04/22/18 12:25 Blood - Peripheral Aerobic Blood Culture - Preliminary No growth in 1 day 04/22/18 12:25 Blood - Peripheral Anaerobic Blood Culture - Preliminary No growth in 1 day 04/22/18 12:30 Blood - Peripheral Aerobic Blood Culture - Preliminary No growth in 1 day 04/22/18 12:30 Blood - Peripheral Anaerobic Blood Culture - Preliminary No growth in 1 day - Procedures None Assessment and Plan - Assessment (1) Cystitis Code(s): N30.90 - Cystitis, unspecified without hematuria Status: Acute (2) Left leg cellulitis Code(s): L03.116 - Cellulitis of left lower limb Status: Acute - Plan 67 YOWF with history of bipolar disorder and DM admitted under Nino Act after police found her sitting outside on her walker possibly acting bizarre. 1. Bipolar disorder The pt presents under a Nino Act. -psychiatry consult pending 2. Left LE cellulitis, nonpurulent - No leukocytosis or fever - Stop vanco and switch to PO Clinda (allergic to PCN an sulfa) - Doppler U/S negative for DVT - Blood cultures negative at one day 3. UTI - Asymptomatic - U/A w/ evidence of infection - Culture pending - Cont cipro 4. Acute renal insufficiency - Resolved - D/C IVF 5. DM - SSI per protocol - Diabetic diet Discharge Planning: Medically stable for d/c either back to home or psych depending on psych eval but patient not actively psychotic or suicidal
--- NOTE | 2018-04-23 17:45 | P.PNWCN ---
Wound Care Nurse Consult Description: Received wound management consult for sacral area Communicated with: TIAGO Perez CDU Recommendation: Please cleanse buttock and sacral area with remedy barrier wipes and pat dry. Apply Calazime skin protectant paste to sacral and buttocks area and leave areas open to air. Additional information: Patient seen on F pod CDU for wound management of sacral area. Patient assessed with brief writer and TIAGO Merida. Fredrick is able to stand with minimal assist. Brief in place was pulled down to reveal intact skin to sacral and coccyx areas. Buttock area that is visible is slightly denuded and presents with blanchable erythema to intact skin. Brief was applied back in place. Rn to cleanse buttock and sacral area with remedy barrier wipes and apply Calazime skin protectant paste.
--- NOTE | 2018-04-23 17:47 | P.CONPSY ---
Provisional Diagnosis Admission Date: April 22, 2018 14:09 History of Present Illness Service: Psychiatry Primary Care Provider: Abdoulaye Barclay DO Chief Complaint: Mica Interiano History of Present Illness: This is a request for a psychiatric consult. Documentation was reviewed, case was discussed with nursing and patient was evaluated. Patient is a 67-year-old female with a long history of psychosis known to the [facility] psychiatric team. Per ER nurses, patient was Mica acted off the street by patrol police lieutenant on her way to the pharmacy. During her interview, her son from [place] called and felt that his mother was not his baseline and was acting more paranoid. He is at [phone]. Patient is very disheveled and smells of urine. There is concern for self-care deficits. Patient says she has been feeling confused and not been taking her medications properly. She also has trouble accessing the refrigerator and alleges that it was taped shut garbage and she has been eating from the garbage. She says she has her side of the refrigerator later but gets confused over where to place things. She does deny auditory hallucinations does not appear to be responding to internal stimuli. Past psych: Multiple psychiatric admissions at [facility]. Long history of psychotic disorder. Multiple medications Past medical: See chart Past Famhx: Poor historian Past Social: Person, patient has cyclical bouts of bipolar disorder and psychosis and has a history of poor compliance. She lives with her daughter now. She and per son she has had conflicts with her sister who used to be her legal guardian PMFSH - History History Provided By: Patient - Medical History Medical History: Medical History (Last Reviewed 04/23/18 @ 17:45 by Cody Chaidez DO) Bipolar disorder DVT (deep venous thrombosis) Diabetes - Surgical History Surgical History: Surgical History (Last Reviewed 04/23/18 @ 17:45 by Cody Chaidez DO) History of hip replacement - Family History Family History: Family History (Last Updated 04/22/18 @ 14:43 by Alexander Root DO) Other CVA (cerebral vascular accident) Diabetes - Tobacco History Second Hand Smoke Exposure: No Tobacco Use In Past 30 Days: No Smoking Status: Never smoker - Alcohol History How Often Do You Have a Drink Containing Alcohol: Never - Substance Use History Substance History: No History of Abuse - Travel History Recent Travel in the [facility] Within the Last 8 Weeks: No Recent Travel Out of the Country Within the Last 8 Weeks: No - Immunization History Tetanus Immunization: Unsure Medications and Allergies Active Medications: Active Medications Acetaminophen (Tylenol) 650 mg PO Q4H PRN PRN Reason: Temp > 100.4, pain 1-2 Ciprofloxacin HCl (Cipro) 250 mg PO Q12HR [facility] Clindamycin HCl (Cleocin) 300 mg PO Q6HR [facility] Last Admin: 04/23/18 17:21 Dose: 300 mg Dextrose (D50w Vial) 50 ml IV.PUSH UNSCH PRN PRN Reason: PER HYPOGLYCEMIA PROTOCOL Divalproex Sodium (Depakote Dr) 750 mg PO BID [facility] Last Admin: 04/23/18 11:57 Dose: 750 mg Glucagon (Glucagon Inj) 1 mg OTHER PRN PRN PRN Reason: for Hypoglycemia Protocol Heparin Sodium (Porcine) (Heparin Inj) 5,000 units SQ Q8H [facility] Last Admin: 04/23/18 17:21 Dose: 5,000 units Sodium Chloride (Ns Inj) 1,000 mls @ 0 mls/hr IV.SIG BOLUS [facility] Last Infusion: 04/22/18 13:31 Dose: Infused Sodium Chloride (Ns Inj) 1,000 mls @ 0 mls/hr IV.SIG BOLUS [facility] Last Infusion: 04/22/18 14:39 Dose: Infused Sodium Chloride (Ns Inj) 1,000 mls @ 100 mls/hr IV.CONT .Q10H [facility] Last Admin: 04/23/18 17:14 Dose: Not Given Insulin Aspart (Novolog Insulin Correctional Sugar Inj) 0 unit SQ ACHS [facility]; Protocol Last Admin: 04/23/18 17:23 Dose: Not Given Miscellaneous Information ([facility] Ordered Lab Info) 0 each OTHER ONCE ONE Stop: 04/25/18 15:46 Paliperidone Palmitate (Invega Er) 6 mg PO DAILY [facility] Last Admin: 04/23/18 11:59 Dose: Not Given Rivaroxaban (Xarelto) 20 mg PO DAILY [facility] Last Admin: 04/23/18 11:57 Dose: 20 mg Thiothixene (Navane) 10 mg PO BID [facility] Last Admin: 04/23/18 11:57 Dose: 10 mg Allergies Allergy/AdvReac Type Severity Reaction Status Date / Time ibuprofen Allergy Severe HIVES Verified 09/09/17 10:32 penicillin G Allergy Severe HIVES Verified 09/09/17 10:32 Sulfa (Sulfonamide Allergy Severe Hives Verified 09/09/17 10:32 Antibiotics) Home Medications Medication Instructions Recorded Confirmed Type divalproex [Depakote] 750 mg PO BID 04/22/18 04/22/18 History paliperidone 6 mg PO QAM 04/22/18 04/22/18 History rivaroxaban [Xarelto] 20 mg PO DAILY 04/22/18 04/22/18 History thiothixene 10 mg PO BID 04/22/18 04/22/18 History Exam Vital signs: Vital Signs 04/22/18 17:56 04/22/18 20:00 04/22/18 20:43 Temperature 97.8 F 98.2 F Pulse Rate 90 84 79 Respiratory Rate 16 16 Blood Pressure 110/63 104/62 Pulse Oximetry 99 96 04/23/18 00:00 04/23/18 03:42 04/23/18 07:16 Temperature 98.1 F 98.5 F Pulse Rate 97 H 84 80 Respiratory Rate 16 16 18 Blood Pressure 116/71 111/64 125/75 Pulse Oximetry 96 97 98 04/23/18 08:30 04/23/18 12:00 Temperature 98.4 F Pulse Rate 67 74 Respiratory Rate 18 Blood Pressure 122/65 Pulse Oximetry 100 Intake & Output 04/22/18 04/23/18 04/23/18 18:59 06:59 18:59 Intake Total 2150 / 2150 1502.5 / 1502.5 800 / 800 Balance 2150 / 2150 1502.5 / 1502.5 800 / 800 Weight 72.575 kg Intake: IV 2150 / 2150 1262.5 / 1262.5 800 / 800 NS Inj 1,000 ML @ 100 mls/hr IV 1000 / 1000 600 / 600 .CONT .Q10H [facility] Rx#:[id number] Cipro 400 MG/200 ML Inj 400 mg 200 / 200 In 200 ml @ 200 mls/hr IV.SIG Q12H [facility] Rx#:[id number] Cleocin 600 mg/NS Premix 600 mg 50 / 50 In 50 ml @ 100 mls/hr IV.SIG ONCE ONE Rx#:[id number] NS Inj 1,000 ML @ Wide Open IV. 1999 SIG BOLUS [facility] Rx#:[id number] Vancomycin Inj 1,250 MG In NS 262.5 / 262.5 Inj 250 ML @ 250 mls/hr IV.SIG Q24H [facility] Rx#:[id number] Rocephin Inj 1,000 MG In NS Inj 100 / 100 100 ML @ 200 mls/hr IV.SIG ONCE ONE Rx#:[id number] Oral 240 / 240 Other: # Voids 1 3 # Incontinent Voids 1 1 Date of Last Bowel Movement 04/22/18 04/22/18 Mental Status Examination Appearance: Disheveled, Malodorous Consciousness: Alert Orientation: Person, Place Motor Activity: Normal gait Speech: Pressured, Rapid Language: Adequate Fund of Knowledge: Inadequate Attention and Concentration: Easily distracted Memory: Impaired Mood: Good Affect: Anxious Thought Process & Associations: Disorganized, Tangential Thought Content: Delusional Delusion Type: Paranoid Suicidal Ideation: No Suicidal Plan: No Suicidal Intention: No Homicidal Ideation: No Homicidal Plan: No Homicidal Intention: No Insight: Poor Judgment: Poor Assessment and Plan - Assessment (1) Schizoaffective disorder Code(s): F25.9 - Schizoaffective disorder, unspecified Status: Acute - Plan Plan: Estimated LOS: [] days There is concern for lack of self-care. Given possible medication noncompliance and a questionable living situation at home, I recommend admitting patient under the Nino act and obtaining further collateral information Justification for Continued Inpatient Stay: Patient would decompensate in a less restrictive setting
[2018-04-23] MEDS ORDERED: Ciprofloxacin 250 MG Tablet PO SCH (21:00)
[2018-04-25] MEDS ORDERED: Pharmacy Ordered Lab Info OTHER ONE (15:45)
== END 2018-04-23 18:55 ==
LOC: NEPE 11:47 → NEDA 11:47 → NEPFCDU 16:40
PROVIDERS: ADMIT Family Medicine; ATTEND Family Medicine

== ENCOUNTER 2018-04-23 17:49 | Inpatient (IN) ==
[2018-04-23] MEDS ORDERED: Senna/Docusate Sodium 8.6/50 MG Tablet PO PRN (20:38)
[2018-04-23] MEDS ORDERED: Bisacodyl 10 MG Supp RECTAL PRN (20:38)
[2018-04-23] MEDS ORDERED: Acetaminophen 325 MG Tablet PO PRN (20:38)
[2018-04-23] MEDS: Ciprofloxacin 250 MG Tablet PO SCH (22:29)
[2018-04-24] MEDS: Divalproex 250 MG DR Tablet PO SCH ×3 (01:55→20:58)
[2018-04-24 07:18] LABS: Baso % (Auto) 0.3 % (0.0-2.0); Eos % (Auto) 0.3 % (0.0-4.0); Hematocrit 36.3 % (35.0-46.0); Hemoglobin 12.1 gm/dL (11.6-15.3); Lymph # (Auto) 0.5 th/mm3 (1.0-4.8); Lymph % (Auto) 6.6 % (9.0-44.0); Mean Corpuscular HGB Conc 33.5 % (32.0-36.0); Mean Corpuscular Volume 86.6 fL (80.0-100.0); Mean Platelet Volume 9.2 fL (7.0-11.0); Mono # (Auto) 0.6 th/mm3 (0.0-0.9); Neut # (Auto) 6.2 th/mm3 (1.8-7.7); Neut % (Auto) 84.8 % (16.0-70.0); Platelet Count 185 th/mm3 (150-450); Red Blood Count 4.19 mil/mm3 (4.00-5.30); White Blood Count 7.3 th/mm3 (4.0-11.0)
[2018-04-24] MEDS ORDERED: Dextrose 50% in Water 50 ML Vial IV.PUSH PRN (07:18)
[2018-04-24] MEDS: Insulin NovoLOG Aspart Correctional Sugar Inj SQ SCH ×4 (07:56→20:58)
[2018-04-24 08:02] LABS: Anion Gap 9 meq/L (5-15); Aspartate Aminotransferase 22 U/L (15-37); Blood Urea Nitrogen 9 mg/dL (7-18); Calcium 8.6 mg/dL (8.5-10.1); Carbon Dioxide 26.4 meq/L (21.0-32.0); Chloride 106 meq/L (98-107); Glomerular Filtration Rate 71 mL/min (>89); Glucose,Random 171 mg/dL (74-106); Potassium 3.9 meq/L (3.5-5.1); Sodium 141 meq/L (136-145)
[2018-04-24 08:03] LABS: Alanine Aminotransferase 35 U/L (10-53); Cholesterol 122 mg/dL (120-200)
[2018-04-24 08:11] LABS: Alkaline Phosphatase 61 U/L (45-117); Chol/HDL Ratio 3.27 Ratio; HDL Cholesterol 37.3 mg/dL (40.0-60.0); LDL Cholesterol,Calculated 53 mg/dL (0-99); Total Protein 7.2 g/dL (6.4-8.2); Triglycerides 157 mg/dL (42-150); Valproic Acid 43 mcg/mL (50-100)
[2018-04-24] MEDS: Ciprofloxacin 250 MG Tablet PO SCH ×2 (09:10→20:58)
[2018-04-24] MEDS: Rivaroxaban 20 MG Tablet PO SCH (09:10)
--- NOTE | 2018-04-24 16:00 | P.HPPSY ---
Provisional Diagnosis Admission Date: April 23, 2018 17:49 [place] I.: Schizoaffective disorder Competence Certification of Person's Competence To Provide Express and Informed Consent I have personally examined Theresa Hurley, a person being served at [facility] on, April 24, 2018 1559. Express and informed consent means consent voluntarily given in writing, by a competent person, after sufficient explanation and disclosure of the subject matter involved to enable the person to make a knowing and willful decision without any element of force, fraud, deceit, duress, or other form of constraint or coercion. This person is 18 years of age or older, is not now known to be incompetent to consent to treatment with a guardian advocate, and does not have a health care surrogate or proxy currently making medical treatment decisions. I have found this person to be one of the following: [xxx] Competent to provide express and informed consent, as defined above, for voluntary admission to this facility and is competent to provide express and informed consent for treatment. He/she has the consistent capacity to make well reasoned, willful, and knowing decisions concerning his or her medical or mental health treatment. The person fully and consistently understands the purpose of the admission for examination/placement and is fully capable of personally exercising all rights assured [place] Incompetent to provide express and informed consent to voluntary admission, and this is incompetent to provide express and informed consent to treatment. The person must be transferred to involuntary status and a petition for a guardian advocate filed with the Circuit Court. [] Refusing to provide express and informed consent to voluntary admission but is competent to provide express and informed consent for treatment. The person must be discharged or transferred to involuntary status. Form shall be completed within 24 hours of a person's arrival at the receiving facility and filed in the clinical record of each person: 1. Admitted on a voluntary basis 2. Permitted to provide express and informed consent to his/her own treatment 3. Allowed to transfer from involuntary to voluntary status 4. Prior to permitting a person to consent to his or her own treatment after having been previously found incompetent to consent to treatment. History of Present Illness Capacity: Has capacity History of Present Illness: Patient is a 59-year-old woman domiciled with daughter, unemployed on SSI with a past psychiatric history of schizoaffective disorder, multiple psychiatric admissions well known to this service, who was brought in under Nino act due to patient was found in the street by police disheveled, smelled of urine confused and concern for self-care deficit patient was admitted to the inpatient psychiatry unit for further evaluation and management. Patient was found sitting hospital chair in the room noted B, cooperative. Patient was alert and oriented x3. Patient states that she had got into an argument with her daughter stated that she had been eating from recently thrown garbage ( unopened yogurt, and unopened bag of lettuce) because she states her daughter duct taped the refrigerator. She mentions that she believes her daughter wants to get control over her at home. She mentions that prior to her admission she had walked to the [facility] pharmacy to fill her medications. By police on the road she states she had been exhausted and unable to continue to walk back. As per chart patient was found in street confused, having defecated on herself which at that time daughter refused to go pick patient up and she was busy at [employer]. Patient noted be somewhat disorganized with poor recollection of events prior to her admission states no difficulty with sleep, reporting feeling stressed with her daughter at home that her mood has been "stable". Patient states that she was going to have an adventure to work on [employer] to perform with [employer]. Patient denies any perceptional services, has some bizarre delusions but denies any SI or HI. Family psychiatric history: patient unaware of any history Past psychiatric history: Previous psychiatric diagnosis schizoaffective disorder, previous psychiatric admissions, prior psychiatric consultation here at [facility]. Has outpatient provider with Dr. Estevez. Recent medication regimen to be verified with outpatient clinic. Past medical history: Diabetes type 2, recent diagnosis of UTI cellulitis Allergies: Ibuprofen, penicillin G, sulfas Substance history: Denies Social history: Domiciled with daughter, unemployed on SSI. - Inpatient Certification I certify that the inpatient services were ordered in accordance with Medicare regulations governing the order. This includes certification that hospital inpatient services are reasonable and necessary and in the case of services not specified as inpatient-only under 42 CFR 419.22(n), that they are appropriately provided as inpatient services in accordance to with the 2-midnight benchmark under 43 CFR 412.3(e) I certify that inpatient psychiatric hospital services are medically necessary. Evaluation and treatment and/or diagnostic testing are expected to improve the patient's condition. The patient needs on a daily basis, active treatment furnished directly by or requiring the supervision of inpatient psychiatric facility personnel. Estimated Total Length of Stay (Days): 7 Plans for Post Hospital Care: Not yet determined Review of Systems All other systems reviewed negative except as stated in HPI PMFSH - History History Provided By: Patient, Medical Record - Medical History Medical History: Medical History (Last Reviewed 04/24/18 @ 16:40 by JOHN Rob) Acute renal failure Anxiety Back pain Depression History of frequent urinary tract infections Hypertension Leg edema Lymphedema Onychogryposis of toenail Onychomycosis TIA (transient ischemic attack) Thrombocytopenia Bipolar disorder DVT (deep venous thrombosis) Diabetes - Surgical History Surgical History: Surgical History (Last Reviewed 04/24/18 @ 16:40 by JOHN Rob) History of hip replacement - Family History Family History: Family History (Last Reviewed 04/24/18 @ 16:40 by JOHN Rob) Other CVA (cerebral vascular accident) Diabetes - Tobacco History Second Hand Smoke Exposure: No Tobacco Use In Past 30 Days: No Smoking Status: Never smoker - Alcohol History How Often Do You Have a Drink Containing Alcohol: Never - Substance Use History Substance History: No History of Abuse - Immunization History Hx Influenza Vaccine This Season: Yes Quality Measures - Psychiatric History Violence risk to others in the last 6 months: low Violence risk to self in the last 6 months: low - Substance Abuse History Drug or alcohol use in the past 12 months: none - Patient Strengths Patient's strengths (minimum of 2): verbal and communicative Medications and Allergies Active Medications: Active Medications Acetaminophen (Tylenol) 650 mg PO Q4H PRN PRN Reason: Pain 1-5 or Temp >101F Al Hydrox/Mg Hydrox/Simethicone (Mag-Al Plus Susp Liq) 30 ml PO Q6H PRN PRN Reason: DYSPEPSIA Al Hydroxide/Mg Hydroxide (Milk Of Magnesia Liq) 30 ml PO Q12H PRN PRN Reason: Mild Constipation Bisacodyl (Dulcolax Supp) 10 mg RECTAL DAILY PRN PRN Reason: SEVERE CONSITIPATION Ciprofloxacin HCl (Cipro) 250 mg PO Q12HR [facility] Last Admin: 04/24/18 09:10 Dose: 250 mg Clindamycin HCl (Cleocin) 300 mg PO Q6HR [facility] Last Admin: 04/24/18 12:05 Dose: 300 mg Dextrose (D50w Vial) 50 ml IV.PUSH UNSCH PRN PRN Reason: PER HYPOGLYCEMIA PROTOCOL Diphenhydramine HCl (Benadryl) 50 mg PO HS PRN PRN Reason: INSOMNIA Divalproex Sodium (Depakote Dr) 750 mg PO BID [facility] Last Admin: 04/24/18 09:09 Dose: 750 mg Glucagon (Glucagon Inj) 1 mg OTHER PRN PRN PRN Reason: for Hypoglycemia Protocol Insulin Aspart (Novolog Insulin Correctional Sugar Inj) 0 unit SQ ACHS [facility]; Protocol Last Admin: 04/24/18 12:06 Dose: Not Given Lactulose (Lactulose Liq) 30 ml PO DAILY PRN PRN Reason: SEVERE CONSITIPATION Lorazepam (Ativan) 0.5 mg PO Q12H PRN PRN Reason: MODERATE TO SEVERE ANXIETY Paliperidone Palmitate (Invega Er) 6 mg PO DAILY [facility] Last Admin: 04/24/18 12:05 Dose: Not Given Rivaroxaban (Xarelto) 20 mg PO DAILY [facility] Last Admin: 04/24/18 09:10 Dose: 20 mg Senna/Docusate Sodium (Brenda-Colace) 1 tab PO BID PRN PRN Reason: CONSTIPATION Sennosides (Senokot) 17.2 mg PO Q12H PRN PRN Reason: Moderate Constipation Thiothixene (Navane) 10 mg PO BID [facility] Last Admin: 04/24/18 12:06 Dose: Not Given Allergies Allergy/AdvReac Type Severity Reaction Status Date / Time ibuprofen Allergy Severe HIVES Verified 09/09/17 10:32 penicillin G Allergy Severe HIVES Verified 09/09/17 10:32 Sulfa (Sulfonamide Allergy Severe Hives Verified 09/09/17 10:32 Antibiotics) Home Medications Medication Instructions Recorded Confirmed Type divalproex [Depakote] 750 mg PO BID 04/22/18 04/22/18 History paliperidone 6 mg PO QAM 04/22/18 04/22/18 History rivaroxaban [Xarelto] 20 mg PO DAILY 04/22/18 04/22/18 History thiothixene 10 mg PO BID 04/22/18 04/22/18 History Results - Labs CBC & Chem 7: 04/24/18 06:07 04/24/18 06:07 Labs: Laboratory Results - last 24 hr 04/24/18 04/24/18 04/24/18 06:07 06:07 06:36 WBC 7.3 RBC 4.19 Hgb 12.1 Hct 36.3 MCV 86.6 MCH 29.0 MCHC 33.5 RDW 15.0 Plt Count 185 MPV 9.2 Neut % (Auto) 84.8 H Lymph % (Auto) 6.6 L [place] % (Auto) 8.0 Eos % (Auto) 0.3 Baso % (Auto) 0.3 Neut # (Auto) 6.2 Lymph # (Auto) 0.5 L [place] # (Auto) 0.6 Eos # (Auto) 0.0 Baso # (Auto) 0.0 WBC Differential . Differential Comment Auto diff final Sodium 141 Potassium 3.9 Chloride 106 Carbon Dioxide 26.4 Anion Gap 9 BUN 9 Creatinine 0.80 Estimated GFR 71 L POC Glucose 175 H Random Glucose 171 H Calcium 8.6 Total Bilirubin 0.3 AST 22 ALT 35 Alkaline Phosphatase 61 Total Protein 7.2 D Albumin 3.0 L Triglycerides 157 H Cholesterol 122 LDL Cholesterol, Calc 53 HDL Cholesterol 37.3 L Cholesterol/HDL Ratio 3.27 TSH 1.480 Valproic Acid 43 L Exam Vital signs: Vital Signs 04/24/18 06:00 Temperature 98.4 F Pulse Rate 108 H Respiratory Rate 17 Blood Pressure 169/72 H Pulse Oximetry 93 L Intake & Output 04/23/18 04/24/18 04/24/18 18:59 06:59 18:59 Weight 86.1 kg Other: Weight On Admission 86.1 kg Narrative: Patient not noted to be in acute distress, no gross motor abnormalities, ambulates with walker, no signs of tremor or EPS, no psychomotor agitation or retardation. - Constitutional no acute distress, disheveled, cooperative Mental Status Examination Appearance: Disheveled Consciousness: Alert Orientation: Person, Place, Date/Time Motor Activity: Normal gait, Abnormal gait Speech: Unremarkable Language: Adequate Fund of Knowledge: Inadequate Attention and Concentration: Adequate Memory: Impaired Affect: Appropriate Thought Process & Associations: Disorganized (At times) Thought Content: Bizarre thinking Hallucination Type: None Delusion Type: Bizarre Suicidal Ideation: No Suicidal Plan: No Suicidal Intention: No Homicidal Ideation: No Homicidal Plan: No Homicidal Intention: No Insight: Fair Judgment: Impulsive Assessment and Plan - Assessment (1) Schizoaffective disorder Code(s): F25.9 - Schizoaffective disorder, unspecified Status: Acute - Plan Plan: Estimated LOS: [] days Patient is a 67-year-old woman who carries a diagnosis schizoaffective disorder multiple psychiatric admissions, well-known to this service, who came in under Nino act due to concern for self-care deficit she was found in the street confused and disoriented which patient was admitted for further psychiatric admission and for stabilization. Patient this time agrees to voluntary admission and has capacity to consent for her medications at this time. We will have patient resume Depakote 70- p.o. twice daily, thiothixene 10 mg p.o. twice daily, paliperidone 6 mg daily, will monitor mood and behavior. EKG ordered. Collateral formation pending from patient's family. Attempts were made to reach out to family but was unsuccessful as there was no answer. Hospitalist consult requested for management of chronic medical illnesses. Discharge planning a progress. Justification for Continued Inpatient Stay: At risk of further decompensation at lower level care.
--- NOTE | 2018-04-24 16:44 | P.CONIM ---
History of Present Illness Service: [facility] Consult date: 04/24/18 Reason for Consult: DM, Cellulitis, medical management Primary Care Provider: UNKNOWN Chief Complaint: diabetes type 2, DVT History of Present Illness: The patient is a 67-year-old female with past medical history of DM type II, DVT , on Xarelto, with recent admission for UTI and right leg cellulitis and bipolar disorder who is presenting to the hospital under a Nino act. He was discharged to the psychiatric unit for psychiatric management. Medicine team was consulted for medical management. Patient was observed ambulating in the hallway with a walker without any complaint. Patient seen and examined, denies any pain, chest pain or shortness of breath, denies any headache or dizziness, denies any abdominal pain, nausea or vomiting, denies any diarrhea or constipation. Patient denies any fever or chills. Patient stated the only thing she have a side diabetes type 2 and its controlled by diet, stated she is not taking any medication at home. Patient stated she is only taking Xarelto for DVT. 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 Denies any heart problems, GI issues or lung problems. Patient denies any smoking history or alcohol abuse. Review of Systems All other systems reviewed negative except as stated in HPI PMFSH - History History Provided By: Patient - Medical History Medical History: Medical History (Last Reviewed 04/24/18 @ 16:40 by JOHN Rob) Acute renal failure Anxiety Back pain Depression History of frequent urinary tract infections Hypertension Leg edema Lymphedema Onychogryposis of toenail Onychomycosis TIA (transient ischemic attack) Thrombocytopenia Bipolar disorder DVT (deep venous thrombosis) Diabetes - Surgical History Surgical History: Surgical History (Last Reviewed 04/24/18 @ 16:40 by JOHN Rob) History of hip replacement - Family History Family History: Family History (Last Reviewed 04/24/18 @ 16:40 by JOHN Rob) Other CVA (cerebral vascular accident) Diabetes - Tobacco History Second Hand Smoke Exposure: No Tobacco Use In Past 30 Days: No Smoking Status: Never smoker - Alcohol History How Often Do You Have a Drink Containing Alcohol: Never - Substance Use History Substance History: No History of Abuse - Immunization History Hx Influenza Vaccine This Season: Yes Medications and Allergies Active Medications: Active Medications Acetaminophen (Tylenol) 650 mg PO Q4H PRN PRN Reason: Pain 1-5 or Temp >101F Al Hydrox/Mg Hydrox/Simethicone (Mag-Al Plus Susp Liq) 30 ml PO Q6H PRN PRN Reason: DYSPEPSIA Al Hydroxide/Mg Hydroxide (Milk Of Magnesia Liq) 30 ml PO Q12H PRN PRN Reason: Mild Constipation Bisacodyl (Dulcolax Supp) 10 mg RECTAL DAILY PRN PRN Reason: SEVERE CONSITIPATION Ciprofloxacin HCl (Cipro) 250 mg PO Q12HR [facility] Last Admin: 04/24/18 09:10 Dose: 250 mg Clindamycin HCl (Cleocin) 300 mg PO Q6HR [facility] Last Admin: 04/24/18 12:05 Dose: 300 mg Dextrose (D50w Vial) 50 ml IV.PUSH UNSCH PRN PRN Reason: PER HYPOGLYCEMIA PROTOCOL Diphenhydramine HCl (Benadryl) 50 mg PO HS PRN PRN Reason: INSOMNIA Divalproex Sodium (Depakote Dr) 750 mg PO BID [facility] Last Admin: 04/24/18 09:09 Dose: 750 mg Glucagon (Glucagon Inj) 1 mg OTHER PRN PRN PRN Reason: for Hypoglycemia Protocol Insulin Aspart (Novolog Insulin Correctional Sugar Inj) [address] [facility]; Protocol Last Admin: 04/24/18 12:06 Dose: Not Given Lactulose (Lactulose Liq) 30 ml PO DAILY PRN PRN Reason: SEVERE CONSITIPATION Lorazepam (Ativan) 0.5 mg PO Q12H PRN PRN Reason: MODERATE TO SEVERE ANXIETY Paliperidone Palmitate (Invega Er) 6 mg PO DAILY [facility] Last Admin: 04/24/18 12:05 Dose: Not Given Rivaroxaban (Xarelto) 20 mg PO DAILY [facility] Last Admin: 04/24/18 09:10 Dose: 20 mg Senna/Docusate Sodium (Brenda-Colace) 1 tab PO BID PRN PRN Reason: CONSTIPATION Sennosides (Senokot) 17.2 mg PO Q12H PRN PRN Reason: Moderate Constipation Thiothixene (Navane) 10 mg PO BID [facility] Last Admin: 04/24/18 12:06 Dose: Not Given Allergies Allergy/AdvReac Type Severity Reaction Status Date / Time ibuprofen Allergy Severe HIVES Verified 09/09/17 10:32 penicillin G Allergy Severe HIVES Verified 09/09/17 10:32 Sulfa (Sulfonamide Allergy Severe Hives Verified 09/09/17 10:32 Antibiotics) Home Medications Medication Instructions Recorded Confirmed Type divalproex [Depakote] 750 mg PO BID 04/22/18 04/22/18 History paliperidone 6 mg PO QAM 04/22/18 04/22/18 History rivaroxaban [Xarelto] 20 mg PO DAILY 04/22/18 04/22/18 History thiothixene 10 mg PO BID 04/22/18 04/22/18 History Exam Vital signs: Vital Signs 04/24/18 06:00 Temperature 98.4 F Pulse Rate 108 H Respiratory Rate 17 Blood Pressure 169/72 H Pulse Oximetry 93 L Intake & Output 04/23/18 04/24/18 04/24/18 18:59 06:59 18:59 Weight 86.1 kg Other: Weight On Admission 86.1 kg Narrative: GENERAL: well nourished, Caucasean female in no apparent distress SKIN: Warm and dry. left lower leg with slight redness, left knee surgical incision & right hip surgical incision healed well HEAD: Atraumatic. Normocephalic. EYES: Pupils equal and round. No scleral icterus. No injection or drainage. ENT: No nasal bleeding or discharge. Mucous membranes pink and moist. NECK: Trachea midline. No JVD. CARDIOVASCULAR: Regular rate and rhythm. RESPIRATORY: No accessory muscle use. Clear to auscultation. Breath sounds equal bilaterally. GASTROINTESTINAL: Abdomen soft, non-tender, nondistended. Hepatic and splenic margins not palpable. MUSCULOSKELETAL: Extremities without clubbing, cyanosis, or edema. Right clubfoot. Right-sided weakness NEUROLOGICAL: Awake and alert. No obvious cranial nerve deficits. Generalized weakness, moving all 4 extremities with right foot drop. Normal speech. PSYCHIATRIC: Appropriate mood and affect; insight and judgment unreliable Results - Labs CBC & Chem 7: 04/24/18 06:07 04/24/18 06:07 Labs: Laboratory Results - last 24 hr 04/24/18 04/24/18 04/24/18 06:07 06:07 06:36 WBC 7.3 RBC 4.19 Hgb 12.1 Hct 36.3 MCV 86.6 MCH 29.0 MCHC 33.5 RDW 15.0 Plt Count 185 MPV 9.2 Neut % (Auto) 84.8 H Lymph % (Auto) 6.6 L [place] % (Auto) 8.0 Eos % (Auto) 0.3 Baso % (Auto) 0.3 Neut # (Auto) 6.2 Lymph # (Auto) 0.5 L [place] # (Auto) 0.6 Eos # (Auto) 0.0 Baso # (Auto) 0.0 WBC Differential . Differential Comment Auto diff final Sodium 141 Potassium 3.9 Chloride 106 Carbon Dioxide 26.4 Anion Gap 9 BUN 9 Creatinine 0.80 Estimated GFR 71 L POC Glucose 175 H Random Glucose 171 H Calcium 8.6 Total Bilirubin 0.3 AST 22 ALT 35 Alkaline Phosphatase 61 Total Protein 7.2 D Albumin 3.0 L Triglycerides 157 H Cholesterol 122 LDL Cholesterol, Calc 53 HDL Cholesterol 37.3 L Cholesterol/HDL Ratio 3.27 TSH 1.480 Valproic Acid 43 L 04/24/18 16:07 WBC RBC Hgb Hct MCV MCH MCHC RDW Plt Count MPV Neut % (Auto) Lymph % (Auto) [place] % (Auto) Eos % (Auto) Baso % (Auto) Neut # (Auto) Lymph # (Auto) [place] # (Auto) Eos # (Auto) Baso # (Auto) WBC Differential Differential Comment Sodium Potassium Chloride Carbon Dioxide Anion Gap BUN Creatinine Estimated GFR POC Glucose 139 H Random Glucose Calcium Total Bilirubin AST ALT Alkaline Phosphatase Total Protein Albumin Triglycerides Cholesterol LDL Cholesterol, Calc HDL Cholesterol Cholesterol/HDL Ratio TSH Valproic Acid Assessment and Plan - Assessment (1) Diabetes type 2, controlled Code(s): E11.9 - Type 2 diabetes mellitus without complications Status: Acute (2) Left leg cellulitis Code(s): L03.116 - Cellulitis of left lower limb Status: Acute (3) Schizoaffective disorder Code(s): F25.9 - Schizoaffective disorder, unspecified Status: Acute - Plan The patient is a 67-year-old female with past medical history of DM type II, DVT , on Xarelto, with recent admission for UTI and right leg cellulitis and bipolar disorder who is presenting to the hospital under a Nino act. He was discharged to the psychiatric unit for psychiatric management. Medicine team was consulted for medical management. DM Type II patient stated diet controlled, not on medication at home -HGbA1C pending -start Insulin sliding scale -monitor blood sugars AC and HS Hx DVT -continue Xarelto -increase ambulation Cellulitis -improving -s/p antibiotic treatment -monitor History of TIA per record Continue on Xarelto Bipolar Disorder Schizoprenia Under Nino Act Management psychiatry team DVT prophylaxis: Xarelto Code Status: full code Discussed Condition With: patient and nursing
[2018-04-24 18:33] LABS: Hemoglobin A1c 6.4 % (4.3-6.0)
[2018-04-24] MEDS: Aluminum/Magnesium/Simethacone Susp 30 ML UDC PO PRN (23:49)
[2018-04-25] MEDS: Insulin NovoLOG Aspart Correctional Sugar Inj SQ SCH ×4 (08:38→22:19)
[2018-04-25] MEDS: Ciprofloxacin 250 MG Tablet PO SCH ×2 (08:39→20:31)
[2018-04-25] MEDS: Divalproex 250 MG DR Tablet PO SCH ×2 (08:39→20:30)
[2018-04-25] MEDS: Rivaroxaban 20 MG Tablet PO SCH (08:46)
--- NOTE | 2018-04-25 17:42 | P.PNIM ---
Subjective Interval history: Follow-up DM type II, DVT, on Xarelto, with recent admission for UTI and right leg cellulitis and bipolar disorder. Patient sitting in the room, eating dinner without any difficulty. Patient denies any complains, stated she is doing good. Her only complaint is to have a good shoes stated if she keeps on walking on her socks it will cause blister on her feet. Nurse reported shoes is at the wash. Patient denies any pain or shortness of breath, denies any headache or dizziness, denies any nausea or vomiting, denies diarrhea or constipation. Patient denies fever or chills. Physical Exam Vital signs: Vital Signs 04/24/18 17:38 04/25/18 05:40 Temperature 99 F 98.0 F Pulse Rate 88 100 H Respiratory Rate 18 16 Blood Pressure 105/61 111/60 Pulse Oximetry 94 L 100 Intake & Output 04/24/18 04/25/18 04/25/18 18:59 06:59 18:59 Intake Total 720 / 720 Balance 720 / 720 Intake: Oral 720 / 720 Narrative: GENERAL: Well-nourished, female in no apparent distress SKIN: Warm and dry.left lower leg with slight redness, left knee surgical incision & right hip surgical incision healed well HEAD: Atraumatic. Normocephalic. EYES: Pupils equal and round. No scleral icterus. No injection or drainage. ENT: No nasal bleeding or discharge. Mucous membranes pink and moist. NECK: Trachea midline. No JVD. CARDIOVASCULAR: Regular rate and rhythm. RESPIRATORY: No accessory muscle use. Clear to auscultation. Breath sounds equal bilaterally. GASTROINTESTINAL: Abdomen soft, non-tender, nondistended. Hepatic and splenic margins not palpable. MUSCULOSKELETAL: Extremities without clubbing, cyanosis, or edema. No obvious deformities. NEUROLOGICAL: Awake and alert. No obvious cranial nerve deficits. Generalized weakness, moving all 4 extremities, right foot drop. Normal speech. PSYCHIATRIC: Appropriate mood and affect; insight and judgment unreliable Results - Labs CBC & Chem 7: 04/24/18 06:07 04/24/18 06:07 Laboratory Results - last 24 hr 04/24/18 04/24/18 04/25/18 06:07 20:24 06:24 POC Glucose 124 H 125 H Hemoglobin A1c 6.4 H 04/25/18 04/25/18 04/25/18 08:24 11:42 16:31 POC Glucose 180 H 105 173 H Hemoglobin A1c Assessment and Plan - Assessment (1) Diabetes type 2, controlled Code(s): E11.9 - Type 2 diabetes mellitus without complications Status: Acute (2) Left leg cellulitis Code(s): L03.116 - Cellulitis of left lower limb Status: Acute (3) Schizoaffective disorder Code(s): F25.9 - Schizoaffective disorder, unspecified Status: Acute - Plan The patient is a 67-year-old female with past medical history of DM type II, DVT , on Xarelto, with recent admission for UTI and right leg cellulitis and bipolar disorder who is presenting to the hospital under a Nino act. He was discharged to the psychiatric unit for psychiatric management. Medicine team was consulted for medical management. DM Type II patient stated diet controlled, not on medication at home -HGbA1C 6.4 -start Insulin sliding scale -monitor blood sugars AC and HS -diet modification/diabetic diet Hx DVT -continue Xarelto -increase ambulation Cellulitis -improving -continue clindamycin and Cipro -monitor, moisturize History of TIA per record Continue on Xarelto Bipolar Disorder Schizoprenia Under Nino Act Management psychiatry team DVT prophylaxis: Xarelto Code Status: full code Discussed Condition With: patient and nurse
--- NOTE | 2018-04-25 18:34 | ECG ---
Date Performed: 04/24/2018 Time Performed: 13:34:13 PTAGE: 67 years EKG: Sinus rhythm MARKED LEFT AXIS DEVIATION PATTERN CONSISTENT WITH PULMONARY DISEASE ABNORMAL ECG PREVIOUS TRACING : 09/30/2017 09.45 Since the previous tracing, no significant change noted DOCTOR: Bhaskar Bolaños Interpretating Date/Time 04/25/2018 18:32:23
[2018-04-25] MEDS: Aluminum/Magnesium/Simethacone Susp 30 ML UDC PO PRN (22:23)
--- NOTE | 2018-04-25 22:57 | P.PNPSY ---
Subjective Remarks: Patient seen for follow-up, chart reviewed. Discussion with nursing staff reported that patient cooperative, compliant medications, had been reluctant to take the Invega. Daughter had called the nurses station and expressed refusal to take patient back to the home. Patient was found sitting in day room noted to be calm and, cooperative. Patient states that she is worried about the cost of her imago as she states had difficulty filling out this prescription with her current insurance, was reminded the patient had been on this medication in the past even to her prior psychiatric admission back in September here at [facility]. Patient reports sleeping well, denies any difficulty eating and drinking, denies any difficulty bowel movement. Patient denies any perceptional services or delusions at this time. Patient preservative on wanting to go back home at this time is unclear whether patient will be allowed to return. Review of Systems All other systems reviewed negative except as stated in HPI Mental Status Examination Appearance: Disheveled Consciousness: Alert Orientation: Person, Place, Date/Time Motor Activity: Normal gait, Abnormal gait Speech: Unremarkable Language: Adequate Fund of Knowledge: Inadequate Attention and Concentration: Adequate Memory: Impaired Affect: Appropriate Thought Process & Associations: Disorganized (At times) Thought Content: Bizarre thinking Hallucination Type: None Delusion Type: Bizarre Suicidal Ideation: No Suicidal Plan: No Suicidal Intention: No Homicidal Ideation: No Homicidal Plan: No Homicidal Intention: No Insight: Fair Judgment: Impulsive Assessment and Plan - Assessment (1) Schizoaffective disorder Code(s): F25.9 - Schizoaffective disorder, unspecified Status: Acute - Plan Plan: Patient this time preservative on discharge back home, either elected to comply with them vague on this patient had been on the medication regimen prior continues to have reluctance to regimen as she believes it was ordered by the nurse practitioner from her outpatient clinic. We will continue current treatment. Patient continues to be noted to be disheveled. Continue to encourage patient to maintain adequate hygiene. We will continue to monitor mood and behavior. Discharge planning in progress. Justification for Continued Inpatient Stay: At risk of further decompensation at lower level care.
[2018-04-26] MEDS: Divalproex 250 MG DR Tablet PO SCH ×2 (08:40→20:52)
[2018-04-26] MEDS: Rivaroxaban 20 MG Tablet PO SCH (08:40)
[2018-04-26] MEDS: Ciprofloxacin 250 MG Tablet PO SCH ×2 (08:40→20:51)
[2018-04-26] MEDS: Insulin NovoLOG Aspart Correctional Sugar Inj SQ SCH ×4 (08:41→20:52)
--- NOTE | 2018-04-26 18:15 | P.PNIM ---
Subjective Interval history: Follow-up DM type II, DVT, on Xarelto, with recent admission for UTI and right leg cellulitis and bipolar disorder. Patient seen and examined walking with a walker from the activity room going back to her room. Patient stated she is feeling better, her leg is getting better. Patient denies any pain, chest pain or shortness of breath. Denies any headache or dizziness, denies any abdominal pain, nausea, vomiting, diarrhea, or constipation. Patient denies any fever or chills. Patient states that she is eating better. Patient is requesting for her about aerobic acid level to be checked, and her Xarelto level to be checked. Discussed the patient's Xarelto level is not getting checked. Physical Exam Vital signs: Vital Signs 04/25/18 18:17 04/26/18 06:56 Temperature 98 F 98.5 F Pulse Rate 95 H Respiratory Rate 17 16 Blood Pressure 128/63 137/79 Pulse Oximetry 94 L Intake & Output 04/25/18 04/26/18 04/26/18 18:59 06:59 18:59 Intake Total 1200 / 1200 460 / 460 720 / 720 Balance 1200 / 1200 460 / 460 720 / 720 Weight 71.5 kg Intake: Oral 1200 / 1200 360 / 360 720 / 720 Oral Supplement 100 / 100 Other: # Voids 2 # Urine Diapers 1 Narrative: GENERAL: Well-nourished, female in no apparent distress SKIN: Warm and dry. left lower leg with slight redness, left knee surgical incision & right hip surgical incision healed well HEAD: Atraumatic. Normocephalic. EYES: Pupils equal and round. No scleral icterus. No injection or drainage. ENT: No nasal bleeding or discharge. Mucous membranes pink and moist. NECK: Trachea midline. No JVD. CARDIOVASCULAR: Regular rate and rhythm. RESPIRATORY: No accessory muscle use. Clear to auscultation. Breath sounds equal bilaterally. GASTROINTESTINAL: Abdomen soft, non-tender, nondistended. Hepatic and splenic margins not palpable. MUSCULOSKELETAL: Extremities without clubbing, cyanosis, bilateral lower extremity trace edema. Right foot drop NEUROLOGICAL: Awake and alert. No obvious cranial nerve deficits. Generalized weakness, moving all 4 extremities, right foot drop. Normal speech. PSYCHIATRIC: Hyperactive mood and affect; insight and judgment unreliable Results - Labs CBC & Chem 7: 04/24/18 06:07 04/24/18 06:07 Laboratory Results - last 24 hr 04/25/18 04/26/18 04/26/18 19:54 07:34 11:27 POC Glucose 156 H 137 H 115 H 04/26/18 16:41 POC Glucose 114 H Assessment and Plan - Assessment (1) Diabetes type 2, controlled Code(s): E11.9 - Type 2 diabetes mellitus without complications Status: Acute (2) Left leg cellulitis Code(s): L03.116 - Cellulitis of left lower limb Status: Acute (3) Schizoaffective disorder Code(s): F25.9 - Schizoaffective disorder, unspecified Status: Acute (4) DVT (deep venous thrombosis) Code(s): I82.409 - Acute embolism and thrombosis of unspecified deep veins of unspecified lower extremity Status: Acute (5) History of CVA (cerebrovascular accident) Code(s): Z86.73 - Personal history of transient ischemic attack (TIA), and cerebral infarction without residual deficits Status: Acute - Plan The patient is a 67-year-old female with past medical history of DM type II, DVT , on Xarelto, with recent admission for UTI and right leg cellulitis and bipolar disorder who is presenting to the hospital under a Nino act. He was discharged to the psychiatric unit for psychiatric management. Medicine team was consulted for medical management. DM Type II patient stated diet controlled, not on medication at home -HGbA1C 6.4 -start Insulin coverage with sliding scale -monitor blood sugars AC and HS, will DC blood sugar checked if no coverage needed in 5 days -diet modification/diabetic diet Hx DVT -continue Xarelto -increase ambulation Cellulitis -improving -continue clindamycin and Cipro -monitor, moisturize History of TIA per record -Continue on Xarelto -Monitor blood pressure, 137/79, 128/63, 111/60 Bipolar Disorder Schizoprenia Under Nino Act -Management psychiatry team DVT prophylaxis: Xarelto Code Status: Full code Discussed Condition With: Patient and nurse
--- NOTE | 2018-04-26 19:28 | P.PNPSY ---
Subjective Remarks: Patient seen for follow-up, chart reviewed. Discussion with nursing staff reported that patient refuses a Nino, continue groups but no behavioral disturbances. Patient was found sitting hospital chair noted to have been recently showered with casual clothing and participating with pet therapy. Patient states that she has shower today with the assistance of nursing students but stating "she is a diabetic". Patient also noted to have some prejudice against her outpatient nurse practitioner provider who is - [place] and expressing distress from his clinical judgment of recommending patient to be on an Tobin which patient has been refusing due to this notion. Patient has a compliant with rest of medications, denies any perceptional disturbances. Patient states that she would like to go to court to advocate for the mentally ill and taken to the appeals in [address]. Patient agrees to attend groups and participate in self-care and adequate p.o. intake. Patient requesting to be discharged home. Review of Systems All other systems reviewed negative except as stated in HPI Mental Status Examination Appearance: Appropriate, Well dressed/well groomed Consciousness: Alert Orientation: Person, Place, Date/Time Motor Activity: Abnormal gait Speech: Unremarkable Language: Adequate Fund of Knowledge: Inadequate Attention and Concentration: Adequate Memory: Impaired Mood: Other ("Good") Affect: Appropriate Thought Process & Associations: Disorganized (At times) Thought Content: Bizarre thinking Hallucination Type: None Delusion Type: Bizarre Suicidal Ideation: No Suicidal Plan: No Suicidal Intention: No Homicidal Ideation: No Homicidal Plan: No Homicidal Intention: No Insight: Fair Judgment: Impulsive Assessment and Plan - Assessment (1) Schizoaffective disorder Code(s): F25.9 - Schizoaffective disorder, unspecified Status: Acute - Plan Plan: Patient endorsing some bizarre statements but no behavioral disturbances. Patient noted to make some pressured statements but no suicidal homicidal ideation. Patient denies any perceptional disturbances. Patient continues to refuse in Tobin, therefore we will optimize thiothixene to 50 mg p.o. twice daily with upper titration as needed for psychosis. Recent EKG showed QTC of 419 ms. Continue current treatment. Continue to monitor mood and behavior. Discharge planning in progress. Justification for Continued Inpatient Stay: At risk of further decompensation at lower level care.
[2018-04-27] MEDS: Insulin NovoLOG Aspart Correctional Sugar Inj SQ SCH ×6 (07:57→21:50)
[2018-04-27] MEDS: Rivaroxaban 20 MG Tablet PO SCH (08:07)
[2018-04-27] MEDS: Ciprofloxacin 250 MG Tablet PO SCH ×2 (08:07→21:49)
[2018-04-27] MEDS: Divalproex 250 MG DR Tablet PO SCH ×2 (08:07→21:49)
--- NOTE | 2018-04-27 15:32 | P.PNPSY ---
Subjective Remarks: As patient seen for follow-up, chart reviewed. Discussion with nursing staff reported that patient continues to refuse Invega as well as refused thiothixene this morning but compliant with rest of medications. Patient noted to have appropriate hygiene and grooming this morning noted B, cooperative. Patient states that she took her medications morning but was reminded that she had refused living as well and agreed to take today. Patient reports feeling happy , states that she was to be discharged home occasionally made some bizarre statements but not responding to internal stimuli, denying any perceptional service of delusions and which is growing adequately with staff and attending groups. Patient denies any SI or HI. Review of Systems All other systems reviewed negative except as stated in HPI Mental Status Examination Appearance: Appropriate, Well dressed/well groomed Consciousness: Alert Orientation: Person, Place, Date/Time Motor Activity: Abnormal gait Speech: Unremarkable Language: Adequate Fund of Knowledge: Inadequate Attention and Concentration: Adequate Memory: Impaired Mood: Other ("Good") Affect: Appropriate Thought Process & Associations: Disorganized (At times) Thought Content: Bizarre thinking Hallucination Type: None Delusion Type: Bizarre Suicidal Ideation: No Suicidal Plan: No Suicidal Intention: No Homicidal Ideation: No Homicidal Plan: No Homicidal Intention: No Insight: Fair Judgment: Impulsive Assessment and Plan - Assessment (1) Schizoaffective disorder Code(s): F25.9 - Schizoaffective disorder, unspecified Status: Acute - Plan Plan: Patient this time had refused medications morning but agreed to take, has consistently refused Invega which we will discontinue but we will continue to optimize thiothixene for psychosis. Continue rest of medications. Depakote level pending for 04/30/18. Continue to monitor mood and behavior. Discharge planning a progress. Justification for Continued Inpatient Stay: At risk of further decompensation at lower level care.
[2018-04-28] MEDS: Insulin NovoLOG Aspart Correctional Sugar Inj SQ SCH ×4 (08:06→20:14)
[2018-04-28] MEDS: Rivaroxaban 20 MG Tablet PO SCH (09:22)
[2018-04-28] MEDS: Ciprofloxacin 250 MG Tablet PO SCH ×2 (09:22→20:11)
[2018-04-28] MEDS: Divalproex 250 MG DR Tablet PO SCH ×2 (09:22→20:10)
--- NOTE | 2018-04-28 11:12 | P.PNPSY ---
Subjective Remarks: Pt seen and discussed with staff. Chart reviewed. Pt was admitted for self-care deficits and bizarre behavior. She has been singing loudly and making bizarre statements to staff today. She has been compliant with medications and care. She states that she has placed an order for "hot catfish" with the nurses and is it is being snuck onto the unit because Dr. Chaidez is discharging her today. No SI/HI. Mental Status Examination Appearance: Appropriate, Well dressed/well groomed Consciousness: Alert Orientation: Person, Place, Date/Time Motor Activity: Abnormal gait Speech: Unremarkable Language: Adequate Fund of Knowledge: Inadequate Attention and Concentration: Adequate Memory: Impaired Mood: Other (effervescent) Affect: Other (expansive) Thought Process & Associations: Disorganized (At times) Thought Content: Bizarre thinking Hallucination Type: None Delusion Type: Bizarre Suicidal Ideation: No Suicidal Plan: No Suicidal Intention: No Homicidal Ideation: No Homicidal Plan: No Homicidal Intention: No Insight: Fair Judgment: Impulsive Assessment and Plan - Assessment (1) Schizoaffective disorder Code(s): F25.9 - Schizoaffective disorder, unspecified Status: Acute - Plan Plan: Continue current tx plan. Justification for Continued Inpatient Stay: impairments in reality testing and social functioning
[2018-04-29 05:14] VITALS: RESP 18
[2018-04-29] MEDS: Insulin NovoLOG Aspart Correctional Sugar Inj SQ SCH ×4 (07:52→22:23)
--- NOTE | 2018-04-29 08:04 | P.PNPSY ---
Subjective Remarks: Chart reviewed and discussed with nursing staff. Patient in common area eating breakfast. Patient is loud and making statements like, " President Sofia take care of your health." She continues to be bizzare and easily distracted. Nurses report that she had a conflict with her daughter and that is why she is here. She is medications compliant. Uses a walker to ambulate and appears to get around on her own. No SI/HI. Review of Systems All other systems reviewed negative except as stated in HPI Mental Status Examination Appearance: Appropriate, Well dressed/well groomed Consciousness: Alert Orientation: Person, Place, Date/Time Motor Activity: Abnormal gait Speech: Unremarkable Language: Adequate Fund of Knowledge: Inadequate Attention and Concentration: Adequate Memory: Impaired Mood: Other (effervescent) Affect: Other (expansive) Thought Process & Associations: Disorganized (At times) Thought Content: Bizarre thinking Hallucination Type: None Delusion Type: Bizarre Suicidal Ideation: No Suicidal Plan: No Suicidal Intention: No Homicidal Ideation: No Homicidal Plan: No Homicidal Intention: No Insight: Fair Judgment: Impulsive Assessment and Plan - Assessment (1) Schizoaffective disorder Code(s): F25.9 - Schizoaffective disorder, unspecified Status: Acute - Plan Plan: Continue current tx plan. Justification for Continued Inpatient Stay: Moving patient to a less restrictive environment may result in her decompensation.
[2018-04-29] MEDS: Rivaroxaban 20 MG Tablet PO SCH (08:59)
[2018-04-29] MEDS: Ciprofloxacin 250 MG Tablet PO SCH ×2 (08:59→21:02)
[2018-04-29] MEDS: Divalproex 250 MG DR Tablet PO SCH ×2 (08:59→21:01)
[2018-04-29] MEDS: LORazepam 0.5 MG Tablet PO PRN (15:32)
[2018-04-30 05:35] VITALS: BP 126/69; PULSE 86; TEMP 97.6; O2SAT 97
[2018-04-30] MEDS: Insulin NovoLOG Aspart Correctional Sugar Inj SQ SCH ×3 (07:18→16:12)
[2018-04-30] MEDS: Divalproex 250 MG DR Tablet PO SCH (08:12)
[2018-04-30] MEDS: Rivaroxaban 20 MG Tablet PO SCH (08:12)
[2018-04-30] MEDS: Ciprofloxacin 250 MG Tablet PO SCH (08:12)
--- NOTE | 2018-04-30 10:39 | P.DCO ---
- Physical Therapy Order: Evaluate and treat - Occupational Therapy Order: Evaluate and treat - Home Health Aide Order: To assist in: Bathing and personal care - Hand Coremaker Order: To evaluate: Living conditions/environment Order: To provide: Long range planning - Case Management Consult No - Certification I have seen patient Theresa Hurley on 04/30/18. My clinical findings support the need for the requested home health care services because: Deconditioned with increased weakness, Medication compliance is questionable, Limited ability to care for self, Impaired cognition/judgement I certify that my clinical findings support that this patient is homebound because: Impaired cognitive ability/safety, Unsteady gait/balance, Need for psychosocial assistance, Unable to use public transportation
[2018-04-30] MEDS: LORazepam 0.5 MG Tablet PO PRN (14:08)
--- NOTE | 2018-04-30 15:12 | P.TTN ---
- Patient Problems Problems: 1. Discharge planning 2. Medication compliance 3. Knowledge deficit 4. Lack of coping skills - Progress Toward Goals Provider Present: Dr. Berry Faulkner Provider Input: 04/30/18: PT IS EXPECTED TO D/C TO HOME, WHEN LITHIUM LEVELS ARE AT THERAPEUTIC LEVELS, TO RESUME LIVING WITH HER DAUGHTER Group Spec/RT/OT/CHENG Present: Sandra Barros, GPS, Fam Metz, OT Group Spec/RT/OT/CHENG Input: pT HAS BEEN ATTENDING GROUPS, SHE IS ALTERNATIVELY COOPERATIVE AND CAN BE SOMEWHAT HYPERVERBAL AND LOUD BUT, THIS IS BASELINE BEHAVIOR FOR THIS PT. Additional Input: 04/30/18: PT IS EXPECTED TO D/C TO HOME, WHEN LITHIUM LEVELS ARE AT THERAPEUTIC LEVELS, TO RESUME LIVING WITH HER DAUGHTER - Documentation Teaching Recipient: Patient
--- NOTE | 2018-04-30 17:22 | P.DSPSY ---
Psychiatry Discharge Summary Inpatient Psychiatric care?: Yes Advance Directives: No Mental Health Advance Directive: No Health Care Proxy: No - Admission Admission Date: April 23, 2018 17:49 - Admission Diagnosis (1) Schizoaffective disorder Code(s): F25.9 - Schizoaffective disorder, unspecified Brief History: Patient is a 59-year-old woman domiciled with daughter, unemployed on SSI with a past psychiatric history of schizoaffective disorder, multiple psychiatric admissions well known to this service, who was brought in under Nino act due to patient was found in the street by police disheveled, smelled of urine confused and concern for self-care deficit patient was admitted to the inpatient psychiatry unit for further evaluation and management. Patient was found sitting hospital chair in the room noted B, cooperative. Patient was alert and oriented x3. Patient states that she had got into an argument with her daughter stated that she had been eating from recently thrown garbage ( unopened yogurt, and unopened bag of lettuce) because she states her daughter duct taped the refrigerator. She mentions that she believes her daughter wants to get control over her at home. She mentions that prior to her admission she had walked to the [facility] pharmacy to fill her medications. By police on the road she states she had been exhausted and unable to continue to walk back. As per chart patient was found in street confused, having defecated on herself which at that time daughter refused to go pick patient up and she was busy at [employer]az[employer]. Patient noted be somewhat disorganized with poor recollection of events prior to her admission states no difficulty with sleep, reporting feeling stressed with her daughter at home that her mood has been "stable". Patient states that she was going to have an adventure to work on [employer] to perform with [employer]. Patient denies any perceptional services, has some bizarre delusions but denies any SI or HI. Family psychiatric history: patient unaware of any history Past psychiatric history: Previous psychiatric diagnosis schizoaffective disorder, previous psychiatric admissions, prior psychiatric consultation here at [facility]. Has outpatient provider with Dr. Estevez. Recent medication regimen to be verified with outpatient clinic. Past medical history: Diabetes type 2, recent diagnosis of UTI cellulitis Allergies: Ibuprofen, penicillin G, sulfas Substance history: Denies Social history: Domiciled with daughter, unemployed on SSI. Tobacco Use In Past 30 Days: No How Often Do You Have a Drink Containing Alcohol: Never Hospital Course: Patient is a 59-year-old woman domiciled with daughter, unemployed on SSI with a past psychiatric history of schizoaffective disorder, multiple psychiatric admissions well known to this service, who was brought in under N[place] act due to patient was found in the street by police disheveled, smelled of urine confused and concern for self-care deficit patient was admitted to the inpatient psychiatry unit for further evaluation and management. Patient was admitted to a locked, inpatient psychiatric unit. Appropriate precautions were in place throughout patient's hospital stay. Patient was seen and examined on the unit by psychiatry. Psychotropic medications were adjusted. There was no evidence of any suicidality or homicidality on the inpatient unit. Patient's mood improved and disorganization also improved with the benefit of psychopharmacological treatment and had no behavioral disturbance since admission. Patient was noted to have reached stable mood, noted to participate and engage in treatment and interact with staff adequately. Patient noted to be future oriented with plans to continue treatment and outpatient follow-up appointments for continuity of care. Counselor has arranged discharge plan which patient return back to her residence. On the day of discharge: Patient seen and examined; chart reviewed. Case discussed with nurse and counselor. No behavioral issues overnight. On my examination today, the patient denies any suicidal homicidal ideation, intent or plan on direct questioning and contracts for safety. Patient denies any perceptional disturbances and no delusional material verbalized today. Patient denies any side effects from medication and has understanding of medication regimen and education. No physical complaints. Suicide and violence risk assessment on day of discharge both suggest lower imminent risk, and the patient's level of function is adequate for plan level of outpatient care. Patient has maximized benefit from this inpatient psychiatric hospital stay and will be discharged with discharge plan as arranged by counselor. Patient advised to return to psychiatric emergency room for any concerning psychiatric symptoms. Patient agrees with plan. - Discharge Discharge Date: 04/30/18 - Discharge Diagnosis (1) Schizoaffective disorder Code(s): F25.9 - Schizoaffective disorder, unspecified Status: Acute Discharge Disposition: Home - Discharge Instructions Discharge Diet: Heart Healthy Diet Activities You Can Perform: Regular- No Restrictions - Discharge Time > 30 minutes Mental Status Examination Appearance: Appropriate, Well dressed/well groomed Consciousness: Alert Orientation: Person, Place, Date/Time Motor Activity: Abnormal gait Speech: Unremarkable Language: Adequate Fund of Knowledge: Inadequate Attention and Concentration: Adequate Memory: Impaired Mood: Other (effervescent) Affect: Appropriate Thought Process & Associations: Intact Thought Content: Appropriate Hallucination Type: None Delusion Type: None Suicidal Ideation: No Suicidal Plan: No Suicidal Intention: No Homicidal Ideation: No Homicidal Plan: No Homicidal Intention: No Insight: Fair Judgment: Impulsive Discharge/Advance Care Plan - Results Vital Signs: Last Vital Signs Temp 97.6 F 04/30/18 05:35 Pulse 86 04/30/18 05:35 Resp 18 04/30/18 05:35 BP 126/69 04/30/18 05:35 Pulse Ox 97 04/30/18 05:35 Lab Results: Abnormal Lab Results 04/30/18 04/30/18 04/30/18 05:12 05:32 11:03 POC Glucose 116 H 126 H Valproic Acid 100 Laboratory Results Hemoglobin A1c 6.4 % (4.3-6.0) H 04/24/18 06:07 Triglycerides 157 mg/dL (42-150) H 04/24/18 06:07 Cholesterol 122 mg/dL (120-200) 04/24/18 06:07 LDL Cholesterol, Calc 53 mg/dL (0-99) 04/24/18 06:07 HDL Cholesterol 37.3 mg/dL (40.0-60.0) L 04/24/18 06:07 TSH 1.480 uIU/mL (0.358-3.740) 04/24/18 06:07 Valproic Acid 100 mcg/mL (50-100) 04/30/18 05:12 Summary of Procedures: none Pending Results: None - Medications Number of antipsychotic medications at discharge: 1 - Discharge Care Plan Goals to Promote Your Health: * To prevent worsening of your condition and complications * To maintain your health at the optimal level Directions to Meet Your Goals: Take your medications as prescribed Follow your dietary instruction Follow activity as directed Keep your appointments as scheduled Take your immunizations and boosters as scheduled If your symptoms worsen call your PCP, if no PCP go to Urgent Care Center or Emergency Room For 30/01 questions related to your inpatient stay or results of tests pending at discharge, please contact Dr. Adonis Faulkner MD at Smoking is Dangerous to Your Health. Avoid second hand smoking
== END 2018-04-30 17:21 | disposition home health service (06) ==
LOC: H250 17:49
PROVIDERS: ADMIT Student in an Organized Health Care Education/Training Program; ATTEND Student in an Organized Health Care Education/Training Program

== ENCOUNTER 2018-05-06 14:01 | Inpatient (IN) ==
--- NOTE | 2018-05-06 15:16 | ED ---
HPI General Chief complaint: Psychiatric Symptoms Stated complaint: psych eval/voluntary/evac Time Seen by Provider: 05/06/18 14:39 Source: EMS Mode of arrival: EMS Limitations: physical limitation History of Present Illness HPI narrative: 67yo F with PMH of DVT on xarelto, bipolar disorder was brought in by [facility] presents to the ED because she was stuck in the back of her car for 2 days and could not get up. 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 Pt has blisters and erythema mainly to the right side of hip and back. She is AAOx3. She denies any suicidal or homicidal ideations and is not under a Nino Act. She denies any head trauma, headache, chest pain , sob, n/v, abdominal pain, focal weakness or numbness. Related Data Previous Rx's Medication Instructions Recorded divalproex [Depakote] 750 mg PO BID 30 Days #180 tab 04/30/18 rivaroxaban [Xarelto] 20 mg PO DAILY 30 Days #30 tab 04/30/18 thiothixene 15 mg PO BID 30 Days #180 cap 04/30/18 Allergies Allergy/AdvReac Type Severity Reaction Status Date / Time ibuprofen Allergy Severe HIVES Verified 09/09/17 10:32 penicillin G Allergy Severe HIVES Verified 09/09/17 10:32 Sulfa (Sulfonamide Allergy Severe Hives Verified 09/09/17 10:32 Antibiotics) Review of Systems ROS: all other systems reviewed are negative [facility] Social History Social History Substance History: No History of Abuse Second Hand Smoke Exposure: No Smoking Status: Never smoker How Often Do You Have a Drink Containing Alcohol: Never Recent Travel in [facility] within the Last 8 Weeks: No Recent Out of Country Travel within the Last 8 Weeks: No Exam Narrative Exam Narrative: GENERAL: 67yo F in mild distress. SKIN: +Erythema right hip with small clear blister. +Erythema right back with small clear blister. HEAD: Atraumatic. Normocephalic. EYES: Pupils equal and round. No scleral icterus. No injection or drainage. ENT: No nasal bleeding or discharge. Mucous membranes pink and moist. NECK: Trachea midline. No JVD. CARDIOVASCULAR: Regular rate and rhythm. No murmur appreciated. RESPIRATORY: No accessory muscle use. Clear to auscultation. Breath sounds equal bilaterally. GASTROINTESTINAL: Abdomen soft, non-tender, nondistended. MUSCULOSKELETAL: +Bilateral foot deformities. Left leg is more edematous than right but pt said that is chronic. NEUROLOGICAL: Awake and alert. No obvious cranial nerve deficits. Motor grossly within normal limits in all extremities. Sensation equal bilaterally. Normal speech. Course Initial Documented Vital Signs Temperature 97.9 F 05/06/18 14:37 Pulse Rate 102 H 05/06/18 14:37 Blood Pressure 123/64 05/06/18 14:37 Pulse Oximetry 99 05/06/18 14:37 Last Documented Vital Signs Temperature 99.4 F 05/08/18 08:00 Pulse Rate 89 05/08/18 08:00 Respiratory Rate 18 05/08/18 08:00 Blood Pressure 110/60 05/08/18 08:00 Pulse Oximetry 94 L 05/08/18 08:00 Medical Decision Making MDM Narrative Medical decision making narrative: 67yo F with bipolar disorder and DVT on xarelto here because she was not able to get out of her car when she fell onto the floor of the back seat 2 days ago. Pt said she went to sleep in the back seat of her car because she has no furniture. Denies the car being turn on. Denies any head trauma but pt was in a tight space and fell and is on xarelto so feel that CT brain is needed. Pt is AAOx3 and denies any actual complaints. Said she does feel dehydrated but wants to orally hydrate instead of IVF. She said she would see Dr. Ca only if he is available so psych evaluation place. Will obtain labs including electrolytes and CPK. Labs reviewed, no leukocytosis. H/H normal. Creatinine normal. CPK is elevated at 5637. Discussed with pt and she is now willing to stay and have IV placed so NS IVF x3 ordered. CT brain negative. Discussed with Dr. Root and accepted to his service. Medical Screen Exam Complete: Yes Emergency Medical Condition: Yes Differential Diagnosis Differential Diagnosis: Rhabdomyolysis vs. dehydration vs. electrolyte abnormality vs. sepsis Lab Data Result diagrams: 05/07/18 05:36 05/08/18 06:57 Lab Results 05/06/18 05/06/18 05/06/18 Range/Units 15:30 15:30 15:30 WBC 7.8 (4.0-11.0) th/mm3 RBC 4.64 (4.00-5.30) mil/mm3 Hgb 13.7 (11.6-15.3) gm/dL Hct 41.0 (35.0-46.0) % MCV 88.4 (80.0-100.0) fL MCH 29.6 (27.0-34.0) pg MCHC 33.5 (32.0-36.0) % RDW 15.5 (11.6-17.2) % Plt Count 238 (150-450) th/mm3 MPV 8.7 (7.0-11.0) fL Neut % (Auto) 80.9 H (16.0-70.0) % Lymph % (Auto) 8.9 L (9.0-44.0) % [place] % (Auto) 9.6 H (0.0-8.0) % Eos % (Auto) 0.2 (0.0-4.0) % Baso % (Auto) 0.4 (0.0-2.0) % Neut # (Auto) 6.3 (1.8-7.7) th/mm3 Lymph # (Auto) 0.7 L (1.0-4.8) th/mm3 [place] # (Auto) 0.7 (0.0-0.9) th/mm3 Eos # (Auto) 0.0 (0.0-0.4) th/mm3 Baso # (Auto) 0.0 (0.0-0.2) th/mm3 WBC Differential . Differential Comment Auto diff final PT 11.0 (9.8-11.6) sec INR 1.1 Ratio APTT 21.7 L (24.3-30.1) sec Carboxyhemoglobin (0-4) % Sodium 139 (136-145) meq/L Potassium 3.9 (3.5-5.1) meq/L Chloride 105 (98-107) meq/L Carbon Dioxide 25.8 (21.0-32.0) meq/L Anion Gap 8 (5-15) meq/L BUN 18 (7-18) mg/dL Creatinine 0.97 (0.50-1.00) mg/dL Estimated GFR 57 L (>89) mL/min POC Glucose (68-110) mg/dl Random Glucose 124 H (74-106) mg/dL Calcium 8.9 (8.5-10.1) mg/dL Prot Corrected Calcium (8.5-10.1) mg/dL Total Bilirubin (0.2-1.0) mg/dL AST (15-37) U/L ALT (10-53) U/L Alkaline Phosphatase (45-117) U/L Total Creatine Kinase 5637 H (26-192) U/L CK-MB (CK-2) 49.2 H (0.5-3.6) ng/mL CK-MB (CK-2) % 0.9 (0.0-4.0) % Total Protein (6.4-8.2) g/dL Albumin (3.4-5.0) g/dL Valproic Acid (50-100) mcg/mL 05/06/18 05/06/18 05/06/18 Range/Units 15:30 21:44 22:04 WBC (4.0-11.0) th/mm3 RBC (4.00-5.30) mil/mm3 Hgb (11.6-15.3) gm/dL Hct (35.0-46.0) % MCV (80.0-100.0) fL MCH (27.0-34.0) pg MCHC (32.0-36.0) % RDW (11.6-17.2) % Plt Count (150-450) th/mm3 MPV (7.0-11.0) fL Neut % (Auto) (16.0-70.0) % Lymph % (Auto) (9.0-44.0) % [place] % (Auto) (0.0-8.0) % Eos % (Auto) (0.0-4.0) % Baso % (Auto) (0.0-2.0) % Neut # (Auto) (1.8-7.7) th/mm3 Lymph # (Auto) (1.0-4.8) th/mm3 [place] # (Auto) (0.0-0.9) th/mm3 Eos # (Auto) (0.0-0.4) th/mm3 Baso # (Auto) (0.0-0.2) th/mm3 WBC Differential Differential Comment PT (9.8-11.6) sec INR Ratio APTT (24.3-30.1) sec Carboxyhemoglobin 1.3 (0-4) % Sodium (136-145) meq/L Potassium (3.5-5.1) meq/L Chloride (98-107) meq/L Carbon Dioxide (21.0-32.0) meq/L Anion Gap (5-15) meq/L BUN (7-18) mg/dL Creatinine (0.50-1.00) mg/dL Estimated GFR (>89) mL/min POC Glucose 178 H (68-110) mg/dl Random Glucose (74-106) mg/dL Calcium (8.5-10.1) mg/dL Prot Corrected Calcium (8.5-10.1) mg/dL Total Bilirubin (0.2-1.0) mg/dL AST (15-37) U/L ALT (10-53) U/L Alkaline Phosphatase (45-117) U/L Total Creatine Kinase Cancelled (26-192) U/L CK-MB (CK-2) (0.5-3.6) ng/mL CK-MB (CK-2) % (0.0-4.0) % Total Protein (6.4-8.2) g/dL Albumin (3.4-5.0) g/dL Valproic Acid (50-100) mcg/mL 05/07/18 05/07/18 05/07/18 Range/Units 05:36 05:36 05:36 WBC 7.6 (4.0-11.0) th/mm3 RBC 3.84 L (4.00-5.30) mil/mm3 Hgb 11.2 L D (11.6-15.3) gm/dL Hct 33.5 L (35.0-46.0) % MCV 87.1 (80.0-100.0) fL MCH 29.2 (27.0-34.0) pg MCHC 33.5 (32.0-36.0) % RDW 15.7 (11.6-17.2) % Plt Count 174 (150-450) th/mm3 MPV 9.4 (7.0-11.0) fL Neut % (Auto) 74.3 H (16.0-70.0) % Lymph % (Auto) 11.3 (9.0-44.0) % [place] % (Auto) 13.1 H (0.0-8.0) % Eos % (Auto) 0.8 (0.0-4.0) % Baso % (Auto) 0.5 (0.0-2.0) % Neut # (Auto) 5.6 (1.8-7.7) th/mm3 Lymph # (Auto) 0.9 L (1.0-4.8) th/mm3 [place] # (Auto) 1.0 H (0.0-0.9) th/mm3 Eos # (Auto) 0.1 (0.0-0.4) th/mm3 Baso # (Auto) 0.0 (0.0-0.2) th/mm3 WBC Differential . Differential Comment Auto diff final PT (9.8-11.6) sec INR Ratio APTT (24.3-30.1) sec Carboxyhemoglobin (0-4) % Sodium 143 (136-145) meq/L Potassium 3.6 (3.5-5.1) meq/L Chloride 111 H (98-107) meq/L Carbon Dioxide 23.6 (21.0-32.0) meq/L Anion Gap 8 (5-15) meq/L BUN 11 (7-18) mg/dL Creatinine 0.70 (0.50-1.00) mg/dL Estimated GFR 83 L (>89) mL/min POC Glucose (68-110) mg/dl Random Glucose 110 H (74-106) mg/dL Calcium 7.6 L D (8.5-10.1) mg/dL Prot Corrected Calcium (8.5-10.1) mg/dL Total Bilirubin 0.4 (0.2-1.0) mg/dL AST 136 H (15-37) U/L ALT 52 (10-53) U/L Alkaline Phosphatase 54 (45-117) U/L Total Creatine Kinase 4034 H (26-192) U/L CK-MB (CK-2) 14.9 H (0.5-3.6) ng/mL CK-MB (CK-2) % 0.4 (0.0-4.0) % Total Protein 6.1 L (6.4-8.2) g/dL Albumin 2.2 L (3.4-5.0) g/dL Valproic Acid 35 L (50-100) mcg/mL 05/07/18 05/08/18 05/08/18 Range/Units 17:02 06:57 08:21 WBC (4.0-11.0) th/mm3 RBC (4.00-5.30) mil/mm3 Hgb (11.6-15.3) gm/dL Hct (35.0-46.0) % MCV (80.0-100.0) fL MCH (27.0-34.0) pg MCHC (32.0-36.0) % RDW (11.6-17.2) % Plt Count (150-450) th/mm3 MPV (7.0-11.0) fL Neut % (Auto) (16.0-70.0) % Lymph % (Auto) (9.0-44.0) % [place] % (Auto) (0.0-8.0) % Eos % (Auto) (0.0-4.0) % Baso % (Auto) (0.0-2.0) % Neut # (Auto) (1.8-7.7) th/mm3 Lymph # (Auto) (1.0-4.8) th/mm3 [place] # (Auto) (0.0-0.9) th/mm3 Eos # (Auto) (0.0-0.4) th/mm3 Baso # (Auto) (0.0-0.2) th/mm3 WBC Differential Differential Comment PT (9.8-11.6) sec INR Ratio APTT (24.3-30.1) sec Carboxyhemoglobin (0-4) % Sodium 144 (136-145) meq/L Potassium 3.9 (3.5-5.1) meq/L Chloride 112 H (98-107) meq/L Carbon Dioxide 25.3 (21.0-32.0) meq/L Anion Gap 7 (5-15) meq/L BUN 11 (7-18) mg/dL Creatinine 0.75 (0.50-1.00) mg/dL Estimated GFR 77 L (>89) mL/min POC Glucose 109 124 H (68-110) mg/dl Random Glucose 115 H (74-106) mg/dL Calcium 7.2 L* (8.5-10.1) mg/dL Prot Corrected Calcium 7.9 L (8.5-10.1) mg/dL Total Bilirubin (0.2-1.0) mg/dL AST (15-37) U/L ALT (10-53) U/L Alkaline Phosphatase (45-117) U/L Total Creatine Kinase 2112 H (26-192) U/L CK-MB (CK-2) 1.8 (0.5-3.6) ng/mL CK-MB (CK-2) % 0.1 (0.0-4.0) % Total Protein 5.7 L (6.4-8.2) g/dL Albumin (3.4-5.0) g/dL Valproic Acid (50-100) mcg/mL 05/08/18 Range/Units 11:57 WBC (4.0-11.0) th/mm3 RBC (4.00-5.30) mil/mm3 Hgb (11.6-15.3) gm/dL Hct (35.0-46.0) % MCV (80.0-100.0) fL MCH (27.0-34.0) pg MCHC (32.0-36.0) % RDW (11.6-17.2) % Plt Count (150-450) th/mm3 MPV (7.0-11.0) fL Neut % (Auto) (16.0-70.0) % Lymph % (Auto) (9.0-44.0) % [place] % (Auto) (0.0-8.0) % Eos % (Auto) (0.0-4.0) % Baso % (Auto) (0.0-2.0) % Neut # (Auto) (1.8-7.7) th/mm3 Lymph # (Auto) (1.0-4.8) th/mm3 [place] # (Auto) (0.0-0.9) th/mm3 Eos # (Auto) (0.0-0.4) th/mm3 Baso # (Auto) (0.0-0.2) th/mm3 WBC Differential Differential Comment PT (9.8-11.6) sec INR Ratio APTT (24.3-30.1) sec Carboxyhemoglobin (0-4) % Sodium (136-145) meq/L Potassium (3.5-5.1) meq/L Chloride (98-107) meq/L Carbon Dioxide (21.0-32.0) meq/L Anion Gap (5-15) meq/L BUN (7-18) mg/dL Creatinine (0.50-1.00) mg/dL Estimated GFR (>89) mL/min POC Glucose 241 H (68-110) mg/dl Random Glucose (74-106) mg/dL Calcium (8.5-10.1) mg/dL Prot Corrected Calcium (8.5-10.1) mg/dL Total Bilirubin (0.2-1.0) mg/dL AST (15-37) U/L ALT (10-53) U/L Alkaline Phosphatase (45-117) U/L Total Creatine Kinase (26-192) U/L CK-MB (CK-2) (0.5-3.6) ng/mL CK-MB (CK-2) % (0.0-4.0) % Total Protein (6.4-8.2) g/dL Albumin (3.4-5.0) g/dL Valproic Acid (50-100) mcg/mL Imaging Data Radiologist's impression: Head CT 05/06/18 15:16 CONCLUSION: 1. Diffuse atrophy. No evidence of hemorrhage or edema . Discharge Plan Discharge Disposition Patient Disposition: 30 Still Patient Discharge Details Diagnosis: Rhabdomyolysis Physicians Team ED Provider: Rhea Maddox Primary Care Provider: UNKNOWN, Attending Provider: Erika Soto Other Providers: Anatoliy Garrett Status ED Status: Left Department Discharge Information Discharge Date/Time: 05/06/18 20:00
[2018-05-06 16:04] LABS: Baso % (Auto) 0.4 % (0.0-2.0); Eos % (Auto) 0.2 % (0.0-4.0); Hemoglobin 13.7 gm/dL (11.6-15.3); Lymph # (Auto) 0.7 th/mm3 (1.0-4.8); Lymph % (Auto) 8.9 % (9.0-44.0); Mean Corpuscular HGB Conc 33.5 % (32.0-36.0); Mean Corpuscular Hemoglobin 29.6 pg (27.0-34.0); Mean Corpuscular Volume 88.4 fL (80.0-100.0); Mean Platelet Volume 8.7 fL (7.0-11.0); Mono # (Auto) 0.7 th/mm3 (0.0-0.9); Mono % (Auto) 9.6 % (0.0-8.0); Neut # (Auto) 6.3 th/mm3 (1.8-7.7); Neut % (Auto) 80.9 % (16.0-70.0); Platelet Count 238 th/mm3 (150-450); Red Blood Count 4.64 mil/mm3 (4.00-5.30); Red Cell Distribution Width 15.5 % (11.6-17.2); White Blood Count 7.8 th/mm3 (4.0-11.0)
[2018-05-06 16:16] LABS: Activated Partial Thrombo Time 21.7 sec (24.3-30.1); INR 1.1 Ratio
[2018-05-06 16:21] LABS: Calcium 8.9 mg/dL (8.5-10.1); Carbon Dioxide 25.8 meq/L (21.0-32.0); Potassium 3.9 meq/L (3.5-5.1)
--- NOTE | 2018-05-06 16:27 | CT ---
EXAM DATE: 05/06/2018 4:22 PM EDT AGE/SEX: 67 years / Female INDICATIONS: Altered Mental Status CLINICAL DATA: This is the patient's initial encounter. Patient reports that signs and symptoms have been present for 2 days and indicates a pain score of 0/10. MEDICAL/SURGICAL HISTORY: Diabetes. Deep venous thrombosis. Transient ischemic attack. Hypertens ion, Acute renal failure . Hip replacement RADIATION DOSE: 66.34 CTDI (mGy) COMPARISON: [facility] – [place], CT BRAIN W/O CONTRAST, 02/22/2017. . TECHNIQUE: CT of the head without contrast. Using automated exposure control and adjustment of the mA and/or kV according to patient size, radiation dose was kept as low as reasonably achievable to ob tain optimal diagnostic quality images. DICOM format image data is available electronically for revi ew and comparison. FINDINGS: Cerebrum: The ventricles are normal for age. No evidence of midline shift, mass lesion, hemorrhage or acute infarction. No extraaxial fluid collections are seen. Posterior Fossa: The cerebellum and brainstem are intact. The 4th ventricle is midline. The cerebe llopontine angle is unremarkable. Extracranial: The visualized portion of the orbits is intact. Skull: The calvaria is intact. No evidence of skull fracture. CONCLUSION: 1. Diffuse atrophy. No evidence of hemorrhage or edema . Electronically signed by: Oral Sutherland MD 05/06/2018 4:26 PM EDT
[2018-05-06 16:54] LABS: CKMB Percent 0.9 % (0.0-4.0); Creatine Kinase MB 49.2 ng/mL (0.5-3.6)
[2018-05-06] MEDS ORDERED: Dextrose 50% in Water 50 ML Vial IV.PUSH PRN (17:45)
--- NOTE | 2018-05-06 17:48 | P.HPIM ---
History of Present Illness Primary Care Physician: UNKNOWN Chief Complaint: Stuck in car History of Present Illness: The patient is a 67-year-old female with a past medical history significant for bipolar disorder and DVT who is presenting to the hospital after being stuck in a car since Monday. The patient says she was recently in the main hospital and then transferred to psychiatry and was then discharged home. She says that she was having some problems with her daughter and she did not have any furniture to sit on so she went to her car to sleep on Monday night. The patient says she got stuck. She says she was in her car since Monday without food or water. She was surprised she survived because she has diabetes. Apparently people from her yarsanism were concerned and EMS found her stuck in the car today. The patient denies any aches or pains. She denies any shortness of breath. She denies any chest pain. She says she feels dehydrated. Discussed with nursing at the bedside. Review of Systems All other systems reviewed negative except as stated in HPI PMFSH - History History Provided By: Patient - Medical History Medical History: Medical History (Last Reviewed 05/06/18 @ 17:49 by Alexander Root DO) Acute renal failure Anxiety Back pain Bipolar disorder DVT (deep venous thrombosis) Depression Diabetes History of frequent urinary tract infections Hypertension Leg edema Lymphedema Onychogryposis of toenail Onychomycosis TIA (transient ischemic attack) Thrombocytopenia - Surgical History Surgical History: Surgical History (Last Reviewed 05/06/18 @ 17:49 by Alexander Root DO) History of hip replacement - Family History Family History: Family History (Last Reviewed 05/06/18 @ 17:49 by Alexander Root DO) Other CVA (cerebral vascular accident) Diabetes - Social History I have reviewed the patient's Social History: Yes - Tobacco History Second Hand Smoke Exposure: No Smoking Status: Never smoker - Alcohol History How Often Do You Have a Drink Containing Alcohol: Never - Substance Use History Substance History: No History of Abuse - Travel History Recent Travel in the [place] Within the Last 8 Weeks: No Recent Travel Out of the Country Within the Last 8 Weeks: No - Immunization History Tetanus Immunization: <5 Years Medications and Allergies Active Medications: Active Medications Dextrose (D50w Vial) 50 ml IV.PUSH UNSCH PRN PRN Reason: PER HYPOGLYCEMIA PROTOCOL Divalproex Sodium ([place]) 750 mg PO BID COUNTS INCLUDE 234 BEDS AT THE [facility] Glucagon (Glucagon Inj) 1 mg OTHER PRN PRN PRN Reason: for Hypoglycemia Protocol Sodium Chloride (Ns Inj) 1,000 mls @ 0 mls/hr IV.SIG BOLUS [facility] Stop: 05/08/18 17:31 Sodium Chloride (Ns Inj) 1,000 mls @ 150 mls/hr IV.CONT .Q6H40M [facility] Insulin Aspart (Novolog Insulin Correctional Sugar Inj) 0 unit SQ ACHS [facility]; Protocol Rivaroxaban (Xarelto) 20 mg PO DAILY COUNTS INCLUDE 234 BEDS AT THE [facility] Thiothixene (Navane) 15 mg PO BID COUNTS INCLUDE 234 BEDS AT THE [facility] Allergies Allergy/AdvReac Type Severity Reaction Status Date / Time ibuprofen Allergy Severe HIVES Verified 09/09/17 10:32 penicillin G Allergy Severe HIVES Verified 09/09/17 10:32 Sulfa (Sulfonamide Allergy Severe Hives Verified 09/09/17 10:32 Antibiotics) Exam Vital signs: Vital Signs 05/06/18 14:37 05/06/18 14:44 05/06/18 17:38 Temperature 97.9 F Pulse Rate 102 H 102 H 100 H Respiratory Rate 18 18 Blood Pressure 123/64 116/58 L Pulse Oximetry 99 98 Intake & Output 05/05/18 05/06/18 05/06/18 18:59 06:59 18:59 Intake Total 300 / 300 Balance 300 / 300 Weight 74.843 kg Intake: Oral 300 / 300 Narrative: GENERAL: No distress. SKIN: +Erythema right hip with small clear blister. +Erythema right back with small clear blister. HEAD: Atraumatic. Normocephalic. EYES: Pupils equal and round. No scleral icterus. No injection or drainage. ENT: No nasal bleeding or discharge. Mucous membranes pink and moist. NECK: Trachea midline. No JVD. CARDIOVASCULAR: Tachycardic. No murmur appreciated. RESPIRATORY: No accessory muscle use. Clear to auscultation. Breath sounds equal bilaterally. GASTROINTESTINAL: Abdomen soft, non-tender, nondistended. MUSCULOSKELETAL: + Bilateral foot deformities. Left leg is more edematous than right but pt said that is chronic. Nontender lower extremities. NEUROLOGICAL: Awake and alert. No obvious cranial nerve deficits. Motor grossly within normal limits in all extremities. Sensation equal bilaterally. Normal speech. Results - Labs CBC & Chem 7: 05/06/18 15:30 05/06/18 15:30 Labs: Short CBC 05/06/18 Range/Units 15:30 WBC 7.8 (4.0-11.0) th/mm3 Hgb 13.7 (11.6-15.3) gm/dL Hct 41.0 (35.0-46.0) % Plt Count 238 (150-450) th/mm3 BMP 05/06/18 15:30 Sodium 139 Potassium 3.9 Chloride 105 Carbon Dioxide 25.8 BUN 18 Creatinine 0.97 Calcium 8.9 Cardiac Enzymes 05/06/18 05/06/18 Range/Units 15:30 15:30 Total Creatine Kinase 5637 H Cancelled (26-192) U/L CK-MB (CK-2) 49.2 H (0.5-3.6) ng/mL - Imaging Impressions Head CT 05/06/18 15:16 CONCLUSION: 1. Diffuse atrophy. No evidence of hemorrhage or edema . Caprini VTE Risk Assessment Caprini VTE Risk Assessment: Moderate/High Risk (score >= 2) Caprini Risk Assessment Model: Point Value = 1 Point Value = 2 Point Value = 3 Point Value = 5 Age 41-60 Minor surgery BMI > 25 kg/m2 Swollen legs Varicose veins or History of unexplained or recurrent spontaneous Oral contraceptives or hormone replacement Sepsis (< 1 month) Serious lung disease, including pneumonia (< 1 month) Abnormal pulmonary function Acute myocardial infarction Congestive heart failure (< 1 month) History of inflammatory bowel disease Medical patient at bed rest Age 61-74 Arthroscopic surgery Major open surgery (> 45 min) Laparoscopic surgery (> 45 min) Malignancy Confined to bed (> 72 hours) Immobilizing plaster cast Central venous access Age >= 75 History of VTE Family history of VTE Factor V Leiden Prothrombin [id number] Lupus anticoagulant Anticardiolipin antibodies Elevated serum homocysteine Heparin-induced thrombocytopenia Other congenital or acquired thrombophilia Stroke (< 1 month) Elective arthroplasty Hip, pelvis, or leg fracture Acute spinal cord injury (< 1 month) Prophylaxis Regimen: Total Risk Factor Score Risk Level Prophylaxis Regimen 0-1 Low Early ambulation 2 Moderate Order ONE of the following: *Sequential Compression Device (SCD) *Heparin 5000 units SQ BID 3-4 Higher Order ONE of the following medications: *Heparin 5000 units SQ TID *Enoxaparin/Lovenox 40 mg SQ daily (WT < 150 kg, CrCl > 30 mL/min) *Enoxaparin/Lovenox 30 mg SQ daily (WT < 150 kg, CrCl > 10-29 mL/min) *Enoxaparin/Lovenox 30 mg SQ BID (WT < 150 kg, CrCl > 30 mL/min) AND/OR *Sequential Compression Device (SCD) 5 or more Highest Order ONE of the following medications: *Heparin 5000 units SQ TID (Preferred with Epidurals) *Enoxaparin/Lovenox 40 mg SQ daily (WT < 150 kg, CrCl > 30 mL/min) *Enoxaparin/Lovenox 30 mg SQ daily (WT < 150 kg, CrCl > 10-29 mL/min) *Enoxaparin/Lovenox 30 mg SQ BID (WT < 150 kg, CrCl > 30 mL/min) AND *Sequential Compression Device (SCD) Assessment and Plan - Plan Rhabdomyolysis The pt was stuck in her car for over two days and her CPK was over 5000 on admission. Renal function is stable at this time. -NS at 150 ml/hr. -trend CPK. -avoid nephrotoxins. DM Type II Patient stated diet controlled, not on medication at home. Recent A1c 6.4%. -start Insulin sliding scale. -monitor blood sugars AC and HS. Hx DVT On Xarelto. -continue Xarelto. Bipolar Disorder Recently admitted to psychiatry. No issues at this time. -resume home regimen once medications are reconciled. -consult psych if needed. Unstable home environment The pt states that her daughter removed her furniture from the house. -case management consult requested. Blisters/ Skin breakdown Noted on right buttocks and right hip. -wound care consult requested. DVT prophylaxis: Xarelto
[2018-05-06] MEDS: Sod Chloride 0.9% Inj 1,000 ML IV.CONT SCH (17:51)
[2018-05-06] MEDS: Sod Chloride 0.9% Inj 1,000 ML IV.SIG SCH ×3 (19:00→22:00)
[2018-05-06] MEDS: Rivaroxaban 20 MG Tablet PO SCH (21:43)
[2018-05-06] MEDS: Insulin NovoLOG Aspart Correctional Sugar Inj SQ SCH (21:47)
[2018-05-06] MEDS: Divalproex 250 MG DR Tablet PO SCH (22:21)
[2018-05-07] MEDS: Sod Chloride 0.9% Inj 1,000 ML IV.CONT SCH ×5 (00:35→21:02)
[2018-05-07 07:49] LABS: Baso % (Auto) 0.5 % (0.0-2.0); Eos # (Auto) 0.1 th/mm3 (0.0-0.4); Eos % (Auto) 0.8 % (0.0-4.0); Hematocrit 33.5 % (35.0-46.0); Hemoglobin 11.2 gm/dL (11.6-15.3); Lymph # (Auto) 0.9 th/mm3 (1.0-4.8); Lymph % (Auto) 11.3 % (9.0-44.0); Mean Corpuscular HGB Conc 33.5 % (32.0-36.0); Mean Corpuscular Hemoglobin 29.2 pg (27.0-34.0); Mean Corpuscular Volume 87.1 fL (80.0-100.0); Mean Platelet Volume 9.4 fL (7.0-11.0); Mono % (Auto) 13.1 % (0.0-8.0); Neut # (Auto) 5.6 th/mm3 (1.8-7.7); Neut % (Auto) 74.3 % (16.0-70.0); Platelet Count 174 th/mm3 (150-450); Red Blood Count 3.84 mil/mm3 (4.00-5.30); Red Cell Distribution Width 15.7 % (11.6-17.2); White Blood Count 7.6 th/mm3 (4.0-11.0)
[2018-05-07 08:23] LABS: Alanine Aminotransferase 52 U/L (10-53); Albumin 2.2 g/dL (3.4-5.0); Alkaline Phosphatase 54 U/L (45-117); Anion Gap 8 meq/L (5-15); Aspartate Aminotransferase 136 U/L (15-37); Blood Urea Nitrogen 11 mg/dL (7-18); Calcium 7.6 mg/dL (8.5-10.1); Carbon Dioxide 23.6 meq/L (21.0-32.0); Chloride 111 meq/L (98-107); Creatine Kinase 4034 U/L (26-192); Glomerular Filtration Rate 83 mL/min (>89); Glucose,Random 110 mg/dL (74-106); Potassium 3.6 meq/L (3.5-5.1); Sodium 143 meq/L (136-145); Total Protein 6.1 g/dL (6.4-8.2)
[2018-05-07 08:42] LABS: CKMB Percent 0.4 % (0.0-4.0); Creatine Kinase MB 14.9 ng/mL (0.5-3.6)
[2018-05-07] MEDS: Insulin NovoLOG Aspart Correctional Sugar Inj SQ SCH ×4 (08:52→21:01)
[2018-05-07] MEDS: Rivaroxaban 20 MG Tablet PO SCH (08:52)
[2018-05-07] MEDS: Divalproex 250 MG DR Tablet PO SCH ×2 (08:53→20:59)
[2018-05-07] MEDS ORDERED: Rivaroxaban 20 MG Tablet PO SCH (09:00)
--- NOTE | 2018-05-07 12:42 | P.PN ---
Subjective Interval history: Nursing reports the patient is having intermittent confusion. Patient herself has no new complaints to me. When I informed her that she likely will need to go back to a different apartment she agrees. Physical Exam Vital signs: Vital Signs 05/06/18 14:37 05/06/18 14:44 05/06/18 17:38 Temperature 97.9 F Pulse Rate 102 H 102 H 100 H Respiratory Rate 18 18 Blood Pressure 123/64 116/58 L Pulse Oximetry 99 98 05/06/18 20:00 05/07/18 00:00 05/07/18 04:00 Temperature 98 F 98 F 98.4 F Pulse Rate 103 H 95 H 92 H Respiratory Rate 18 16 19 Blood Pressure 113/74 146/77 H 150/80 H Pulse Oximetry 98 97 95 05/07/18 08:00 Temperature 98 F Pulse Rate 106 H Respiratory Rate 16 Blood Pressure 95/54 L Pulse Oximetry 92 L Intake & Output 05/06/18 05/07/18 05/07/18 18:59 06:59 18:59 Intake Total 300 / 300 5013 / 5013 227 / 227 Balance 300 / 300 5013 / 5013 227 / 227 Weight 74.843 kg 77.4 kg Intake: IV 4773 / 4773 227 / 227 NS Inj 1,000 ML @ 150 mls/hr IV 1773 / 1773 227 / 227 .CONT .Q6H40M [facility] Rx#:[id number] NS Inj 1,000 ML @ Wide Open IV. 3000 / 3000 SIG BOLUS [facility] Rx#:[id number] Oral 300 / 300 240 / 240 Other: # Incontinent Voids 3 Weight On Admission 83.4 kg Narrative: Heart sounds regular rate rhythm, no murmurs Clear lungs bilaterally, unlabored breathing Awake and alert 5/5 proximal upper extremity strength including fist pumping station engineer bilaterally 3/5 proximal lower extremity strength Results - Labs CBC & Chem 7: 05/07/18 05:36 05/07/18 05:36 Laboratory Results - last 24 hr 05/06/18 05/06/18 05/06/18 15:30 15:30 15:30 WBC 7.8 RBC 4.64 Hgb 13.7 Hct 41.0 MCV 88.4 MCH 29.6 MCHC 33.5 RDW 15.5 Plt Count 238 MPV 8.7 Neut % (Auto) 80.9 H Lymph % (Auto) 8.9 L [place] % (Auto) 9.6 H Eos % (Auto) 0.2 Baso % (Auto) 0.4 Neut # (Auto) 6.3 Lymph # (Auto) 0.7 L [place] # (Auto) 0.7 Eos # (Auto) 0.0 Baso # (Auto) 0.0 WBC Differential . Differential Comment Auto diff final PT 11.0 INR 1.1 APTT 21.7 L Carboxyhemoglobin Sodium 139 Potassium 3.9 Chloride 105 Carbon Dioxide 25.8 Anion Gap 8 BUN 18 Creatinine 0.97 Estimated GFR 57 L POC Glucose Random Glucose 124 H Calcium 8.9 Total Bilirubin AST ALT Alkaline Phosphatase Total Creatine Kinase 5637 H CK-MB (CK-2) 49.2 H CK-MB (CK-2) % 0.9 Total Protein Albumin 05/06/18 05/06/18 05/06/18 15:30 21:44 22:04 WBC RBC Hgb Hct MCV MCH MCHC RDW Plt Count MPV Neut % (Auto) Lymph % (Auto) [place] % (Auto) Eos % (Auto) Baso % (Auto) Neut # (Auto) Lymph # (Auto) [place] # (Auto) Eos # (Auto) Baso # (Auto) WBC Differential Differential Comment PT INR APTT Carboxyhemoglobin 1.3 Sodium Potassium Chloride Carbon Dioxide Anion Gap BUN Creatinine Estimated GFR POC Glucose 178 H Random Glucose Calcium Total Bilirubin AST ALT Alkaline Phosphatase Total Creatine Kinase Cancelled CK-MB (CK-2) CK-MB (CK-2) % Total Protein Albumin 05/07/18 05/07/18 05:36 05:36 WBC 7.6 RBC 3.84 L Hgb 11.2 L D Hct 33.5 L MCV 87.1 MCH 29.2 MCHC 33.5 RDW 15.7 Plt Count 174 MPV 9.4 Neut % (Auto) 74.3 H Lymph % (Auto) 11.3 [place] % (Auto) 13.1 H Eos % (Auto) 0.8 Baso % (Auto) 0.5 Neut # (Auto) 5.6 Lymph # (Auto) 0.9 L [place] # (Auto) 1.0 H Eos # (Auto) 0.1 Baso # (Auto) 0.0 WBC Differential . Differential Comment Auto diff final PT INR APTT Carboxyhemoglobin Sodium 143 Potassium 3.6 Chloride 111 H Carbon Dioxide 23.6 Anion Gap 8 BUN 11 Creatinine 0.70 Estimated GFR 83 L POC Glucose Random Glucose 110 H Calcium 7.6 L D Total Bilirubin 0.4 AST 136 H ALT 52 Alkaline Phosphatase 54 Total Creatine Kinase 4034 H CK-MB (CK-2) 14.9 H CK-MB (CK-2) % 0.4 Total Protein 6.1 L Albumin 2.2 L - Imaging Impressions Head CT 05/06/18 15:16 CONCLUSION: 1. Diffuse atrophy. No evidence of hemorrhage or edema . Assessment and Plan - Plan 67 y/o WF admitted for rhabdomyolysis. The pt was stuck in her car for over two days and her CPK was over 5000 on admission. Renal function is stable at this time. Rhabdomyolysis 2/2 immobilization, DCF notified for -NS at 150 ml/hr. -Improving trend CPK. no KANCHAN yet. DM Type II Patient stated diet controlled, not on medication at home. Recent A1c 6.4%. -Insulin sliding scale. -monitor blood sugars AC and HS. Hx DVT On Xarelto. -continue Xarelto. Bipolar Disorder Recently admitted to psychiatry. No issues at this time. -resume home regimen once medications are reconciled. -psychiatry consulted Unstable home environment The pt states that her daughter removed her furniture from the house. -case management consult requested. DCF notified Blisters/ Skin breakdown Noted on right buttocks and right hip. -wound care DVT prophylaxis: Xarelto
--- NOTE | 2018-05-07 15:05 | P.PNWCN ---
Wound Care Nurse Consult Description: Consult for wound management of right buttocks area per Dr Root Communicated with: TIAGO Null Recommendation: Leave Versatel in place over intact blisters for 7 days. Change outer dressing when soiled. On 05/14/18 remove versatel dressings (contact layers) and gently cleanse with Normal Saline and pat dry. If blisters are deflated and no open wounds are noted , leave open to air. If blisters are open wounds please apply Versatel and cover with dry cover for another 7 days. Recommend to float heels off mattress surface at all times by placing pillows under calves. Additional information: Patient seen on [facility] for intact bullae noted to right posterior lower leg, right inner thigh, and right hip.
--- NOTE | 2018-05-07 17:17 | P.CONPSY ---
Provisional Diagnosis Admission Date: May 06, 2018 17:31 [place] I.: Schizoaffective disorder, bipolar type History of Present Illness Service: [facility] Primary Care Provider: UNKNOWN Chief Complaint: Stuck in car History of Present Illness: The patient is a 67-year-old woman domiciled with daughter, unemployed , on SSI with a past psychiatric history of schizoaffective disorder, multiple psychiatric admissions well known to this service, she was just discharged from inpatient April 30, 2018, documentation review, she is on Depakote 750 mg twice daily, Navane 15 mg twice daily, who was brought is presenting to the hospital after being stuck in a car since Monday. The patient says she was recently in the main hospital and then transferred to psychiatry and was then discharged home. She says that she was having some problems with her daughter and she did not have any furniture to sit on so she went to her car to sleep on Monday night. The patient says she got stuck. She says she was in her car since Monday without food or water. She was surprised she survived because she has diabetes. Apparently people from her ep[employer] were concerned and EMS found her stuck in the car today. The patient denies any aches or pains. She denies any shortness of breath. She denies any chest pain. She says she feels dehydrated. Discussed with nursing at the bedside. Admitted due to rhabdomyolysis. On my psychiatric evaluation the patient is calm, cooperative, in a good spirit. The patient immediately recognized me from previous encounters, states that she has been taking her medications and feeling okay. The patient denies anhedonia, denies hopelessness, denies helplessness, denies worthlessness, denies suicidal and homicidal ideation, she denies visual and auditory hallucinations. At times laughing inappropriately, which is logical and coherent. Denies side effects of medications. Fully oriented x3 at the moment, does not seem to be decompensated, but at baseline. Family psychiatric history: patient unaware of any history Past psychiatric history: Previous psychiatric diagnosis schizoaffective disorder, previous psychiatric admissions, prior psychiatric consultation here at [facility]. Has outpatient provider with Dr. Estevez. Recent medication regimen to be verified with outpatient clinic. Past medical history: Diabetes type 2, recent diagnosis of UTI cellulitis Allergies: Ibuprofen, penicillin G, sulfas Substance history: Denies Social history: Domiciled with daughter, unemployed on SSI. [facility] - History History Provided By: Patient - Medical History Medical History: Medical History (Last Reviewed 05/07/18 @ 07:58 by Shasha De La Torre) Acute renal failure Anxiety Back pain Bipolar disorder DVT (deep venous thrombosis) Depression Diabetes History of frequent urinary tract infections Hypertension Leg edema Lymphedema Onychogryposis of toenail Onychomycosis TIA (transient ischemic attack) Thrombocytopenia - Surgical History Surgical History: Surgical History (Last Reviewed 05/06/18 @ 17:49 by Alexander Root DO) History of hip replacement - Family History Family History: Family History (Last Reviewed 05/07/18 @ 07:58 by Shasha De La Torre) Other CVA (cerebral vascular accident) Diabetes - Tobacco History Second Hand Smoke Exposure: No Tobacco Use In Past 30 Days: No Smoking Status: Never smoker - Alcohol History How Often Do You Have a Drink Containing Alcohol: Never - Substance Use History Substance History: No History of Abuse - Travel History Recent Travel in the [place] Within the Last 8 Weeks: No Recent Travel Out of the Country Within the Last 8 Weeks: No - Immunization History Tetanus Immunization: Unsure Hx Influenza Vaccine This Season: No Medications and Allergies Active Medications: Active Medications Dextrose (D50w Vial) 50 ml IV.PUSH UNSCH PRN PRN Reason: PER HYPOGLYCEMIA PROTOCOL Divalproex Sodium (Depakote Dr) 750 mg PO BID [facility] Last Admin: 05/07/18 08:53 Dose: 750 mg Glucagon (Glucagon Inj) 1 mg OTHER PRN PRN PRN Reason: for Hypoglycemia Protocol Sodium Chloride (Ns Inj) 1,000 mls @ 0 mls/hr IV.SIG BOLUS [facility] Stop: 05/08/18 17:31 Last Infusion: 05/06/18 23:05 Dose: Infused Sodium Chloride (Ns Inj) 1,000 mls @ 150 mls/hr IV.CONT .Q6H40M [facility] Last Admin: 05/07/18 15:16 Dose: 150 mls/hr Insulin Aspart (Novolog Insulin Correctional Sugar Inj) 0 unit SQ ACHS [facility]; Protocol Last Admin: 05/07/18 11:59 Dose: 1 unit Rivaroxaban (Xarelto) 20 mg PO DAILY [facility] Last Admin: 05/07/18 08:52 Dose: 20 mg Thiothixene (Navane) 15 mg PO BID [facility] Last Admin: 05/07/18 08:58 Dose: Not Given Allergies Allergy/AdvReac Type Severity Reaction Status Date / Time ibuprofen Allergy Severe HIVES Verified 09/09/17 10:32 penicillin G Allergy Severe HIVES Verified 09/09/17 10:32 Sulfa (Sulfonamide Allergy Severe Hives Verified 09/09/17 10:32 Antibiotics) Exam Vital signs: Vital Signs 05/06/18 17:38 05/06/18 20:00 05/07/18 00:00 Temperature 98 F 98 F Pulse Rate 100 H 103 H 95 H Respiratory Rate 18 18 16 Blood Pressure 116/58 L 113/74 146/77 H Pulse Oximetry 98 98 97 05/07/18 04:00 05/07/18 08:00 05/07/18 12:00 Temperature 98.4 F 98 F 98.2 F Pulse Rate 92 H 106 H 103 H Respiratory Rate 19 16 18 Blood Pressure 150/80 H 95/54 L 112/63 Pulse Oximetry 95 92 L 93 L Intake & Output 05/06/18 05/07/18 05/07/18 18:59 06:59 18:59 Intake Total 300 / 300 5013 / 5013 1227 / 1227 Balance 300 / 300 5013 / 5013 1227 / 1227 Weight 74.843 kg 77.4 kg Intake: IV 4773 / 4773 1227 / 1227 NS Inj 1,000 ML @ 150 mls/hr IV 1773 / 1773 1227 / 1227 .CONT .Q6H40M [facility] Rx#:[id number] NS Inj 1,000 ML @ Wide Open IV. 3000 / 3000 SIG BOLUS [facility] Rx#:[id number] Oral 300 / 300 240 / 240 Other: # Incontinent Voids 3 Weight On Admission 83.4 kg Narrative: No EPS, no psychomotor agitation or retardation, no catatonia - Constitutional no acute distress - Routine HEENT Exam Head: Present: normocephalic, atraumatic Eye: Present: EOMI, PERRL Mental Status Examination Appearance: Appropriate Consciousness: Alert Orientation: x4 Motor Activity: Normal gait Speech: Unremarkable Language: Adequate Fund of Knowledge: Adequate Attention and Concentration: Adequate Memory: Unremarkable Mood: Appropriate Affect: Appropriate Thought Process & Associations: Intact Thought Content: Appropriate Hallucination Type: None Delusion Type: None Suicidal Ideation: No Suicidal Plan: No Suicidal Intention: No Homicidal Ideation: No Homicidal Plan: No Homicidal Intention: No Insight: Adequate Judgment: Adequate Assessment and Plan - Assessment (1) Schizophrenia Code(s): F20.9 - Schizophrenia, unspecified Status: Acute - Plan Plan: My psychiatric evaluation today the patient seems to be at baseline, a little bit disorganized at times, which is positive, oriented x3, able to answer all my questions, no agitation, no aggressive behavior, no prominent paranoia, no prominent loosening of associations present. The patient has been taking her medications. She was just discharged about a week ago from psychiatry. She does not meet criteria for admission at this moment. Continue Depakote 750 mg twice daily, Navane 50 mg twice daily. I will order Depakote level. The expectation is the Depakote level is between 50 and 100. I will follow-up. Justification for Continued Inpatient Stay: No admission is indicated. (1) Schizophrenia Qualifiers: Schizophrenia type: unspecified Qualified Code(s): F20.9 - Schizophrenia, unspecified
[2018-05-08] MEDS: Sod Chloride 0.9% Inj 1,000 ML IV.CONT SCH ×3 (04:22→18:41)
[2018-05-08] MEDS: Divalproex 250 MG DR Tablet PO SCH ×2 (08:19→21:30)
[2018-05-08] MEDS: Rivaroxaban 20 MG Tablet PO SCH (08:20)
[2018-05-08] MEDS: Insulin NovoLOG Aspart Correctional Sugar Inj SQ SCH ×4 (08:24→21:31)
[2018-05-08 08:51] LABS: Calcium 7.2 mg/dL (8.5-10.1); Carbon Dioxide 25.3 meq/L (21.0-32.0); Potassium 3.9 meq/L (3.5-5.1)
[2018-05-08 09:10] LABS: CKMB Percent 0.1 % (0.0-4.0); Creatine Kinase MB 1.8 ng/mL (0.5-3.6); Total Protein 5.7 g/dL (6.4-8.2)
--- NOTE | 2018-05-08 16:13 | P.PN ---
Subjective Interval history: Follow up for rhabdomyolysis: pt. seen and examined, oriented x 3. States she knows she can't go home with daughter. She has a place she can go to but wants to make sure that I keep this confidential. Reassured her of this. States she is going to her father's house, when questioned further, he is . States that someone lives at the house and plans to buy it from them. Asking when she can go home. OT working with her at this time. Physical Exam Vital signs: Vital Signs 05/07/18 20:00 05/08/18 00:00 05/08/18 04:00 Temperature 98.6 F 99.9 F H 99.3 F Pulse Rate 94 H 91 H 99 H Respiratory Rate 20 20 20 Blood Pressure 110/69 116/67 99/60 L Pulse Oximetry 97 95 97 05/08/18 08:00 Temperature 99.4 F Pulse Rate 89 Respiratory Rate 18 Blood Pressure 110/60 Pulse Oximetry 94 L Intake & Output 05/07/18 05/08/18 05/08/18 18:59 06:59 18:59 Intake Total 1817 / 1817 1999 / 1999 1000 / 1000 Output Total 200 / 200 800 / 800 Balance 1617 / 1617 1200 / 1200 1000 / 1000 Weight 88.6 kg Intake: IV 1227 / 1227 1999 / 1999 1000 / 1000 NS Inj 1,000 ML @ 150 mls/hr IV 1227 / 1227 1999 / 1999 1000 / 1000 .CONT .Q6H40M [facility] Rx#:[id number] Oral 590 / 590 Output: Urine 200 / 200 800 / 800 Other: # Voids 1 2 # Incontinent Voids 1 Narrative: GENERAL: No distress. SKIN: +Erythema right hip with small clear blister. +Erythema right back with small clear blister. HEAD: Atraumatic. Normocephalic. EYES: Pupils equal and round. No scleral icterus. No injection or drainage. ENT: No nasal bleeding or discharge. Mucous membranes pink and moist. NECK: Trachea midline. No JVD. CARDIOVASCULAR: S1, S2. No murmur appreciated. RESPIRATORY: No accessory muscle use. Clear to auscultation. Breath sounds equal bilaterally. GASTROINTESTINAL: Abdomen soft, non-tender, nondistended. MUSCULOSKELETAL: + Bilateral foot deformities. Left leg is more edematous than right but pt said that is chronic. Nontender lower extremities. NEUROLOGICAL: Awake and alert and oriented x 3. No obvious cranial nerve deficits. Motor grossly within normal limits in all extremities. Sensation equal bilaterally. Normal speech. PSYCHIATRY: disorganized at times. Results - Labs CBC & Chem 7: 05/07/18 05:36 05/08/18 06:57 Laboratory Results - last 24 hr 05/07/18 05/07/18 05/08/18 05:36 17:02 06:57 Sodium 144 Potassium 3.9 Chloride 112 H Carbon Dioxide 25.3 Anion Gap 7 BUN 11 Creatinine 0.75 Estimated GFR 77 L POC Glucose 109 Random Glucose 115 H Calcium 7.2 L* Prot Corrected Calcium 7.9 L Total Creatine Kinase 2112 H CK-MB (CK-2) 1.8 CK-MB (CK-2) % 0.1 Total Protein 5.7 L Valproic Acid 35 L 05/08/18 05/08/18 08:21 11:57 Sodium Potassium Chloride Carbon Dioxide Anion Gap BUN Creatinine Estimated GFR POC Glucose 124 H 241 H Random Glucose Calcium Prot Corrected Calcium Total Creatine Kinase CK-MB (CK-2) CK-MB (CK-2) % Total Protein Valproic Acid Assessment and Plan - Assessment (1) Rhabdomyolysis Code(s): M62.82 - Rhabdomyolysis Status: Acute (2) Diabetes type 2, controlled Code(s): E11.9 - Type 2 diabetes mellitus without complications Status: Chronic (3) DVT (deep venous thrombosis) Code(s): I82.409 - Acute embolism and thrombosis of unspecified deep veins of unspecified lower extremity Status: Chronic (4) History of CVA (cerebrovascular accident) Code(s): Z86.73 - Personal history of transient ischemic attack (TIA), and cerebral infarction without residual deficits Status: Chronic (5) Schizophrenia Code(s): F20.9 - Schizophrenia, unspecified Status: Chronic - Plan 67 y/o WF admitted for rhabdomyolysis. The pt was stuck in her car for over two days and her CPK was over 5000 on admission. Renal function is stable at this time. Rhabdomyolysis 2/2 immobilization -continue NS at 150 ml/hr. -Improving trend CPK. no KANCHAN yet. -CPK 2112 DM Type II Patient stated diet controlled, not on medication at home. Recent A1c 6.4%. -Insulin sliding scale. -monitor blood sugars AC and HS. Hx DVT On Xarelto. -continue Xarelto. Bipolar Disorder Recently admitted to psychiatry was discharged on 04/30. No issues at this time. -continue Depakote and Navane. -depakote level 35 -psychiatry input appreciated, pt. at baseline. Doesn't meet criteria for admission to psych Unstable home environment The pt states that her daughter removed her furniture from the house. -case management consult requested. DCF notified Blisters/ Skin breakdown Noted on right buttocks and right hip. -wound care following DVT prophylaxis: Xarelto PT eval, recommend rehab CM for HHC vs SNF DCF also following, not a safe discharge. (2) Diabetes type 2, controlled Qualifiers: Diabetes mellitus chcf insulin use: unspecified squeegee operator insulin use status Diabetes mellitus complication status: with unspecified complications Qualified Code(s): E11.8 - Type 2 diabetes mellitus with unspecified complications (3) DVT (deep venous thrombosis) Qualifiers: Affected thrombotic vein of extremity: unspecified vein of extremity Chronicity: chronic Laterality: unspecified laterality (5) Schizophrenia Qualifiers: Schizophrenia type: unspecified Qualified Code(s): F20.9 - Schizophrenia, unspecified
[2018-05-09] MEDS: Sod Chloride 0.9% Inj 1,000 ML IV.CONT SCH ×4 (01:17→21:29)
[2018-05-09] MEDS: Rivaroxaban 20 MG Tablet PO SCH (08:31)
[2018-05-09] MEDS: Divalproex 250 MG DR Tablet PO SCH ×2 (08:31→21:21)
[2018-05-09] MEDS: Insulin NovoLOG Aspart Correctional Sugar Inj SQ SCH ×4 (08:32→21:26)
[2018-05-09 10:37] LABS: Carbon Dioxide 24.9 meq/L (21.0-32.0)
--- NOTE | 2018-05-09 10:53 | P.DCO ---
- Diagnosis (1) Rhabdomyolysis Status: Acute - Physical Therapy Order: Evaluate and treat - Home Health Nursing Order: Medical education, Signs/symptoms of disease process, Nursing assessment with vital signs - Biomass Plant Manager Order: To evaluate: Living conditions/environment, Support services Order: To provide: Community services - Case Management Consult Yes - Certification I have seen patient Theresa Hurley on 05/09/18. My clinical findings support the need for the requested home health care services because: Admitted with rhabdomyolysis, patient has limited mobility from prior hip surgery, uses walker. Deconditioned with increased weakness, Medication compliance is questionable, Limited ability to care for self, Need for psychosocial assistance, High risk of falls I certify that my clinical findings support that this patient is homebound because: Unsafe to leave home unassisted, Need for psychosocial assistance (1) Rhabdomyolysis Qualifiers: Rhabdomyolysis type: non-traumatic Qualified Code(s): M62.82 - Rhabdomyolysis
[2018-05-09 10:58] LABS: Potassium 5.2 meq/L (3.5-5.1)
--- NOTE | 2018-05-09 10:58 | P.PN ---
Subjective Interval history: Follow up for rhabdomyolysis: pt. seen and examined, oriented x 3. Patient states she is going home today. Has no complaints, no chest pain, no shortness of breath, no nausea, no vomiting, no diarrhea. States that she has been trying to call Mr. Brothers, she believes that [facility] should open a pediatric neurosurgery program. Physical Exam Vital signs: Vital Signs 05/08/18 12:00 05/08/18 16:00 05/08/18 20:00 Temperature 97.5 F L 98.1 F 97.7 F Pulse Rate 97 H 79 92 H Respiratory Rate 18 18 18 Blood Pressure 114/55 L 105/59 L 111/56 L Pulse Oximetry 96 99 94 L 05/09/18 00:00 05/09/18 03:20 05/09/18 08:00 Temperature 98.5 F 97.8 F 97.8 F Pulse Rate 81 78 77 Respiratory Rate 17 18 17 Blood Pressure 120/61 130/74 124/67 Pulse Oximetry 97 96 95 Intake & Output 05/08/18 05/09/18 05/09/18 18:59 06:59 18:59 Intake Total 1999 / 1999 1800 / 1800 1000 / 1000 Output Total 2500 / 2500 Balance 1999 -700 / -700 1000 / 1000 Weight 91.4 kg Intake: IV 1999 1000 / 1000 1000 / 1000 NS Inj 1,000 ML @ 150 mls/hr IV 1999 / 1999 1000 / 1000 1000 / 1000 .CONT .Q6H40M ON LICENSE OF [facility] Rx#:[id number] Oral 800 / 800 Output: Urine 2500 / 2500 Other: Date of Last Bowel Movement 05/08/18 Narrative: GENERAL: No distress. SKIN: +Erythema right hip with small clear blister. +Erythema right back with small clear blister. HEAD: Atraumatic. Normocephalic. EYES: Pupils equal and round. No scleral icterus. No injection or drainage. ENT: No nasal bleeding or discharge. Mucous membranes pink and moist. NECK: Trachea midline. No JVD. CARDIOVASCULAR: S1, S2. No murmur appreciated. RESPIRATORY: No accessory muscle use. Clear to auscultation. Breath sounds equal bilaterally. GASTROINTESTINAL: Abdomen soft, non-tender, nondistended. MUSCULOSKELETAL: + Bilateral foot deformities. Left leg is more edematous than right but pt said that is chronic. Nontender lower extremities. NEUROLOGICAL: Awake and alert and oriented x 3. No obvious cranial nerve deficits. Motor grossly within normal limits in all extremities. Sensation equal bilaterally. Normal speech. PSYCHIATRY: disorganized at times. Results - Labs CBC & Chem 7: 05/07/18 05:36 05/08/18 06:57 Laboratory Results - last 24 hr 05/08/18 05/09/18 11:57 08:06 POC Glucose 241 H 103 Assessment and Plan - Assessment (1) Rhabdomyolysis Code(s): M62.82 - Rhabdomyolysis Status: Acute (2) Diabetes type 2, controlled Code(s): E11.9 - Type 2 diabetes mellitus without complications Status: Chronic (3) DVT (deep venous thrombosis) Code(s): I82.409 - Acute embolism and thrombosis of unspecified deep veins of unspecified lower extremity Status: Chronic (4) History of CVA (cerebrovascular accident) Code(s): Z86.73 - Personal history of transient ischemic attack (TIA), and cerebral infarction without residual deficits Status: Chronic (5) Schizophrenia Code(s): F20.9 - Schizophrenia, unspecified Status: Chronic - Plan 67 y/o WF admitted for rhabdomyolysis. The pt was stuck in her car for over two days and her CPK was over 5000 on admission. Renal function is stable at this time. Rhabdomyolysis 2/2 immobilization -continue NS at 150 ml/hr. -Improving trend CPK. no KANCHAN yet. -CPK 2112 yesterday, pending today DM Type II Patient stated diet controlled, not on medication at home. Recent A1c 6.4%. -Insulin sliding scale. -monitor blood sugars AC and HS. Hx DVT On Xarelto. -continue Xarelto. Bipolar Disorder Recently admitted to psychiatry was discharged on 04/30. No issues at this time. -continue Depakote and Navane. -depakote level 35 -psychiatry input appreciated, pt. at baseline. Doesn't meet criteria for admission to psych Unstable home environment The pt states that her daughter removed her furniture from the house. -case management consult requested. DCF notified Blisters/ Skin breakdown Noted on right buttocks and right hip. -wound care following DVT prophylaxis: Xarelto PT eval, recommend rehab CM consult for HHC per DCF, pt.'s home is okay for her to go back. Daughter is not caregiver Plan to dc tomorrow if CPK continues to improve Code Status: full code Discussed Condition With: RN, pt, CM Discharge Planning: Poss dc tomorrow with HHC (1) Rhabdomyolysis Qualifiers: Rhabdomyolysis type: non-traumatic Qualified Code(s): M62.82 - Rhabdomyolysis (2) Diabetes type 2, controlled Qualifiers: Diabetes mellitus assisted insulin use: unspecified assisted insulin use status Diabetes mellitus complication status: with unspecified complications Qualified Code(s): E11.8 - Type 2 diabetes mellitus with unspecified complications (3) DVT (deep venous thrombosis) Qualifiers: Affected thrombotic vein of extremity: unspecified vein of extremity Chronicity: chronic Laterality: unspecified laterality (5) Schizophrenia Qualifiers: Schizophrenia type: unspecified Qualified Code(s): F20.9 - Schizophrenia, unspecified
[2018-05-09 11:27] LABS: CKMB Percent 0.1 % (0.0-4.0); Creatine Kinase MB 1.3 ng/mL (0.5-3.6)
[2018-05-10] MEDS: Sod Chloride 0.9% Inj 1,000 ML IV.CONT SCH ×5 (02:59→21:23)
[2018-05-10 09:23] LABS: Creatine Kinase 760 U/L (26-192)
[2018-05-10 09:38] LABS: CKMB Percent 0.1 % (0.0-4.0)
--- NOTE | 2018-05-10 10:33 | P.PN ---
Subjective Interval history: Follow up for rhabdomyolysis: pt. seen and examined, oriented x 3. Patient very anxious, insists that I contact his PCP Dr. Barclay. His office was contacted by case making machine operator and his office staff indicated that they recommend [facility]-this was relayed to the patient. She is refusing her medications today, indicates that she needs to speak to her psychiatrist because she is not on the correct dosage. I attempted to reason with her however she becomes extremely upset. Insists that she wants to go home, I explained to her that based on the physical therapy recommendations she will be safer at a rehab facility. Patient again becomes extremely anxious and upset, gritting her teeth. She states that she will sign AGAINST MEDICAL ADVICE but will prefer not to do that. She wants to talk to psychiatrist first and then wants to be discharged home. Patient has no other complaints, has been eating and drinking well and making urine. No fever. After much convincing she allowed us to finish her lab work this morning. Physical Exam Vital signs: Vital Signs 05/09/18 16:00 05/09/18 20:00 05/10/18 00:00 Temperature 98.0 F 98.2 F 98.0 F Pulse Rate 78 78 79 Respiratory Rate 17 19 17 Blood Pressure 140/67 119/63 126/61 Pulse Oximetry 98 98 100 05/10/18 04:00 05/10/18 08:00 Temperature 98.0 F 97.9 F Pulse Rate 83 92 H Respiratory Rate 17 17 Blood Pressure 134/62 135/75 Pulse Oximetry 100 97 Intake & Output 05/09/18 05/10/18 05/10/18 18:59 06:59 18:59 Intake Total 2720 / 2720 2480 / 2480 Output Total 1000 / 1000 1820 / 1820 Balance 1720 / 1720 660 / 660 Weight 90.4 kg Intake: IV 1999 NS Inj 1,000 ML @ 150 mls/hr IV 1999 .CONT .Q6H40M [facility] Rx#:[id number] Oral 720 / 720 480 / 480 Output: Urine 1000 / 1000 1820 / 1820 Other: Date of Last Bowel Movement 05/09/18 # Bowel Movements 0 Narrative: GENERAL: No distress. SKIN: +Erythema right hip with small clear blister. +Erythema right back with small clear blister. HEAD: Atraumatic. Normocephalic. EYES: Pupils equal and round. No scleral icterus. No injection or drainage. ENT: No nasal bleeding or discharge. Mucous membranes pink and moist. NECK: Trachea midline. No JVD. CARDIOVASCULAR: S1, S2. No murmur appreciated. RESPIRATORY: No accessory muscle use. Clear to auscultation. Breath sounds equal bilaterally. GASTROINTESTINAL: Abdomen soft, non-tender, nondistended. MUSCULOSKELETAL: + Bilateral foot deformities. Left leg is more edematous than right but pt said that is chronic. Nontender lower extremities. NEUROLOGICAL: Awake and alert and oriented x 3. No obvious cranial nerve deficits. Weakness BLE. Sensation equal bilaterally. Normal speech. PSYCHIATRY: anxious, disorganized Results - Labs CBC & Chem 7: 05/07/18 05:36 05/09/18 07:56 Laboratory Results - last 24 hr 05/09/18 05/09/18 05/09/18 07:56 11:56 17:37 Sodium 142 Potassium 5.2 H D Chloride 111 H Carbon Dioxide 24.9 Anion Gap 6 BUN 11 Creatinine 0.67 Estimated GFR 88 L POC Glucose 169 H 128 H Random Glucose 93 Calcium 8.0 L D Total Creatine Kinase 1342 H CK-MB (CK-2) 1.3 CK-MB (CK-2) % 0.1 05/09/18 05/10/18 05/10/18 19:43 08:21 08:37 Sodium Potassium Chloride Carbon Dioxide Anion Gap BUN Creatinine Estimated GFR POC Glucose 190 H 132 H Random Glucose Calcium Total Creatine Kinase 760 H CK-MB (CK-2) Less than 1.0 CK-MB (CK-2) % 0.1 Assessment and Plan - Assessment (1) Rhabdomyolysis Code(s): M62.82 - Rhabdomyolysis Status: Acute (2) Diabetes type 2, controlled Code(s): E11.9 - Type 2 diabetes mellitus without complications Status: Chronic (3) DVT (deep venous thrombosis) Code(s): I82.409 - Acute embolism and thrombosis of unspecified deep veins of unspecified lower extremity Status: Chronic (4) History of CVA (cerebrovascular accident) Code(s): Z86.73 - Personal history of transient ischemic attack (TIA), and cerebral infarction without residual deficits Status: Chronic (5) Schizophrenia Code(s): F20.9 - Schizophrenia, unspecified Status: Chronic - Plan 67 y/o WF admitted for rhabdomyolysis. The pt was stuck in her car for over two days and her CPK was over 5000 on admission. Renal function is stable at this time. Rhabdomyolysis 2/2 immobilization -stop IVF, enc. PO fluids -Improving trend CPK. no KANCHAN yet. -CPK improving, 760 today. DM Type II Patient stated diet controlled, not on medication at home. Recent A1c 6.4%. -Insulin sliding scale. -monitor blood sugars AC and HS. Hx DVT On Xarelto. -continue Xarelto. Bipolar Disorder Recently admitted to psychiatry was discharged on 04/30. No issues at this time. -continue Depakote and Navane. -depakote level 35 -psychiatry input appreciated, pt. at baseline. Doesn't meet criteria for admission to psych -Patient very anxious, remains disorganized. We will have psych reevaluate, Depakote level 35. Medications may need adjustment. Patient insisting on talking to psychiatry as well, refused her meds today Unstable home environment The pt states that her daughter removed her furniture from the house. -Case management following, DCF has evaluated home and deemed appropriate for patient to go back. Patient's daughter is disabled as well. She does not want to be care provider for her mother. Blisters/ Skin breakdown Noted on right buttocks and right hip. -wound care following DVT prophylaxis: Xarelto PT eval, recommend rehab CM consult for HHC per DCF, pt.'s home is okay for her to go back. Daughter is not caregiver Patient clinically stable for discharge. Case management following, patient finally agreed to a home health care agency. Insisted that we call Dr. Barclay's office to find out which agency he will recommend. Discussed with patient at length, based on PT evaluation she will benefit from going to a rehab. She is at risk for falls. Patient became very anxious and upset and states that she wants to go home or she will sign out AGAINST MEDICAL ADVICE. Refused her medications this morning, insist on discussing with psychiatrist. Code Status: Full code Discussed Condition With: RN, pt, CM Discharge Planning: Pt. 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
[2018-05-10] MEDS: Insulin NovoLOG Aspart Correctional Sugar Inj SQ SCH ×4 (10:48→20:55)
[2018-05-10] MEDS: Rivaroxaban 20 MG Tablet PO SCH (11:17)
[2018-05-10] MEDS: Divalproex 250 MG DR Tablet PO SCH ×2 (16:44→20:57)
[2018-05-11] MEDS: Sod Chloride 0.9% Inj 1,000 ML IV.CONT SCH ×2 (01:27→05:00)
[2018-05-11] MEDS: Insulin NovoLOG Aspart Correctional Sugar Inj SQ SCH ×2 (08:00→12:00)
[2018-05-11] MEDS: Rivaroxaban 20 MG Tablet PO SCH (13:44)
--- NOTE | 2018-05-11 13:45 | P.PN ---
Subjective Interval history: Follow up for rhabdomyolysis: pt. seen and examined, oriented x 3. Sitting up in chair. Eating well. Drinking fluids, refused IVFs. No complaints. Asking if she is going home today. Agreeing to take medications today Physical Exam Vital signs: Vital Signs 05/10/18 16:00 05/10/18 20:00 05/11/18 00:00 Temperature 97.5 F L 98.1 F 98.6 F Pulse Rate 76 86 76 Respiratory Rate 18 Blood Pressure 117/60 120/59 L 115/58 L Pulse Oximetry 97 98 96 05/11/18 04:00 05/11/18 08:00 05/11/18 12:00 Temperature 98.0 F 97.8 F 98 F Pulse Rate 78 73 84 Respiratory Rate 18 20 Blood Pressure 126/67 129/63 133/68 Pulse Oximetry 96 96 98 Intake & Output 05/10/18 05/11/18 05/11/18 18:59 06:59 18:59 Intake Total 1720 / 1720 1000 / 1000 Output Total 2350 / 2350 Balance 1720 / 1720 -1350 / -1350 Weight 89.7 kg Intake: IV 1000 / 1000 1000 / 1000 NS Inj 1,000 ML @ 150 mls/hr IV 1000 / 1000 1000 / 1000 .CONT .Q6H40M [facility] Rx#:[id number] Oral 720 / 720 Output: Urine 2350 / 2350 Other: # Voids 2 # Incontinent Voids 4 Date of Last Bowel Movement 05/10/18 05/09/18 # Bowel Movements 1 Narrative: GENERAL: No distress. SKIN: +Erythema right hip with small clear blister. +Erythema right back with small clear blister. HEAD: Atraumatic. Normocephalic. EYES: Pupils equal and round. No scleral icterus. No injection or drainage. ENT: No nasal bleeding or discharge. Mucous membranes pink and moist. NECK: Trachea midline. No JVD. CARDIOVASCULAR: S1, S2. No murmur appreciated. RESPIRATORY: No accessory muscle use. Clear to auscultation. Breath sounds equal bilaterally. GASTROINTESTINAL: Abdomen soft, non-tender, nondistended. MUSCULOSKELETAL: + Bilateral foot deformities. Left leg is more edematous than right but pt said that is chronic. Nontender lower extremities. NEUROLOGICAL: Awake and alert and oriented x 3. No obvious cranial nerve deficits. Weakness BLE. Sensation equal bilaterally. Normal speech. PSYCHIATRY: disorganized Results - Labs CBC & Chem 7: 05/07/18 05:36 05/09/18 07:56 Laboratory Results - last 24 hr 05/10/18 05/10/18 05/11/18 14:32 19:44 09:58 POC Glucose 152 H 113 H 137 H Assessment and Plan - Assessment (1) Rhabdomyolysis Code(s): M62.82 - Rhabdomyolysis Status: Acute (2) Diabetes type 2, controlled Code(s): E11.9 - Type 2 diabetes mellitus without complications Status: Chronic (3) DVT (deep venous thrombosis) Code(s): I82.409 - Acute embolism and thrombosis of unspecified deep veins of unspecified lower extremity Status: Chronic (4) History of CVA (cerebrovascular accident) Code(s): Z86.73 - Personal history of transient ischemic attack (TIA), and cerebral infarction without residual deficits Status: Chronic (5) Schizophrenia Code(s): F20.9 - Schizophrenia, unspecified Status: Chronic - Plan 67 y/o WF admitted for rhabdomyolysis. The pt was stuck in her car for over two days and her CPK was over 5000 on admission. Renal function is stable at this time. Rhabdomyolysis 2/2 immobilization -stop IVF, enc. PO fluids -Improving trend CPK. no KANCHAN yet. -CPK improving, 760 yesterday DM Type II Patient stated diet controlled, not on medication at home. Recent A1c 6.4%. -Insulin sliding scale. -monitor blood sugars AC and HS. Hx DVT On Xarelto. -continue Xarelto. Bipolar Disorder Recently admitted to psychiatry was discharged on 04/30. No issues at this time. -continue Depakote and Navane. -depakote level 35 -psychiatry input appreciated, pt. at baseline. Doesn't meet criteria for admission to psych -D/W psych, continue on present meds. No need for adjustment. Unstable home environment The pt states that her daughter removed her furniture from the house. -Case management following, DCF has evaluated home and deemed appropriate for patient to go back. Patient's daughter is disabled as well. She does not want to be care provider for her mother. Blisters/ Skin breakdown Noted on right buttocks and right hip. -wound care following DVT prophylaxis: Xarelto PT eval, recommend rehab per DCF, pt.'s home is okay for her to go back. Daughter is not caregiver Patient clinically stable for discharge Spoke to daughter yesterday, pt. can't come home. Daughter can't supervise her and be caregiver. Daughter is disabled herself and concerned about safety of her mother as she insists on driving. Prefers that pt go to SNF. Pt. agreeable with SNF, bed pending CPK in am Code Status: Full code Discussed Condition With: RN, pt, CM Discharge Planning: SNF pending, pt. 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
[2018-05-11] MEDS: Divalproex 250 MG DR Tablet PO SCH (13:49)
--- NOTE | 2018-05-11 16:17 | P.DS ---
Date of admission: 05/06/18 17:31 Primary care physician: UNKNOWN Attending physician on discharge: Cecy Rich Anticipated date of discharge: 05/11/18 Brief History from admission: The patient is a 67-year-old female with a past medical history significant for bipolar disorder and DVT who is presenting to the hospital after being stuck in a car since Monday. The patient says she was recently in the main hospital and then transferred to psychiatry and was then discharged home. She says that she was having some problems with her daughter and she did not have any furniture to sit on so she went to her car to sleep on Monday night. The patient says she got stuck. She says she was in her car since Monday without food or water. She was surprised she survived because she has diabetes. Apparently people from her adventism were concerned and EMS found her stuck in the car today. The patient denies any aches or pains. She denies any shortness of breath. She denies any chest pain. She says she feels dehydrated. Discussed with nursing at the bedside. DS: Diagnosis - Discharge Diagnosis (1) Rhabdomyolysis Status: Acute (2) Diabetes type 2, controlled Status: Chronic (3) DVT (deep venous thrombosis) Status: Chronic (4) History of CVA (cerebrovascular accident) Status: Chronic (5) Schizophrenia Status: Chronic DS: Summary Hospital Course: The patient is a 67-year-old female with a past medical history significant for bipolar disorder and DVT who is presenting to the hospital after being stuck in a car since Monday. The patient says she was recently in the main hospital and then transferred to psychiatry and was then discharged home. She says that she was having some problems with her daughter and she did not have any furniture to sit on so she went to her car to sleep on Monday night. The patient says she got stuck. She says she was in her car since Monday without food or water. Apparently people from her adventism were concerned and EMS found her stuck in the car today. The patient denied any aches or pains. She denied any shortness of breath. She denied any chest pain. She felt dehydrated. Laboratory workup was completed, she was found with rhabdomyolysis. She was put on IV fluids. CPK was over 5000. Renal function was stable. CPK started trending down, 760. Patient with history of bipolar disorder, she had recently been admitted to psychiatry and discharged April 30. She was reevaluated by psychiatrist who recommended for patient to continue with Depakote and [place]. Per psychiatry, patient was at baseline, did not meet criteria for admission to psych. Patient was somewhat disorganized but otherwise stable. Case management was consulted to assist with discharge planning. DCF was following patient. Patient lived at home with her daughter who is disabled. DCF evaluated pt's home and deemed it appropriate for patient to go back however patient's daughter indicated that she could not be the care provider for her mother and would prefer that she go to a SNF facility because of her medical issues and mood lability secondary to bipolar disorder. Patient initially reluctant, requesting to go home with home health care and would not choose facility. PT evaluated, recommended SNF. After much discussion she finally agreed with SNF placement. Pt. was discharged to SNF in stable condition - Time Spent with Patient Total time spent providing and/or coordinating discharge services: 35 minutes Greater than 30 minutes - Quality: VTE Deep Vein Thrombosis/Pulmonary Embolism Present on Admission: No Exam Vital signs: Vital Signs 05/10/18 20:00 05/11/18 00:00 05/11/18 04:00 Temperature 98.1 F 98.6 F 98.0 F Pulse Rate 86 76 78 Respiratory Rate 18 18 18 Blood Pressure 120/59 L 115/58 L 126/67 Pulse Oximetry 98 96 96 05/11/18 08:00 05/11/18 12:00 Temperature 97.8 F 98 F Pulse Rate 73 84 Respiratory Rate 20 20 Blood Pressure 129/63 133/68 Pulse Oximetry 96 98 Intake & Output 05/10/18 05/11/18 05/11/18 18:59 06:59 18:59 Intake Total 1720 / 1720 1000 / 1000 Output Total 2350 / 2350 Balance 1720 / 1720 -1350 / -1350 Weight 89.7 kg Intake: IV 1000 / 1000 1000 / 1000 NS Inj 1,000 ML @ 150 mls/hr IV 1000 / 1000 1000 / 1000 .CONT .[id number] [facility] Rx#:[id number] Oral 720 / 720 Output: Urine 2350 / 2350 Other: # Voids 2 # Incontinent Voids 4 Date of Last Bowel Movement 05/10/18 05/09/18 # Bowel Movements 1 Results Procedures completed during hospitalization: None Labs on day of discharge: Labs from last 24 hours 05/11/18 05/10/18 09:58 19:44 POC Glucose 137 H 113 H - Impressions ITS Impressions Head CT 05/06/18 15:16 CONCLUSION: 1. Diffuse atrophy. No evidence of hemorrhage or edema . Discharge Plan - Discharge Disposition Patient Disposition: W/Home Health Service - Discharge Condition Condition: Stable - Discharge Order Discharge Orders: Discharge Order (Routine); Ordered 05/11/18 Ordered By: Emerald [place] - Discharge Details Anticipated Discharge Date: 05/10/18 - Physicians Team Primary Care Provider: UNKNOWN, Attending Provider: Cecy Rich Other Providers: Anatoliy Garrett MD ; [facility] ; [facility]
== END 2018-05-11 18:59 ==
LOC: NEPD 14:01 → NEDA 17:31 → N04 19:30
PROVIDERS: ADMIT Family Medicine; ATTEND Family Medicine